=== PATIENT | female | born 1945 | race Caucasian/White ===

== ENCOUNTER 2017-12-25 05:45 | Inpatient (IN) | payer MEDICARE, SELFPAY ==
[2016-12-05 15:47] VITALS: BMI 35.6
[2017-12-25] VITALS (17 sets, daily range): BP systolic 109–155; BP diastolic 42–110; PULSE 68–160; RESP 18–35; TEMP 36.6–39.3; O2SAT 95–100; BMI 38.6; BMI 29.8
--- NOTE | 2017-12-25 06:10 | EKG12_ITS ---
Test Reason : N/V Blood Pressure : / mmHG Vent. Rate : 108 BPM Atrial Rate : 108 BPM P-R Int : 176 ms QRS Dur : 084 ms QT Int : 350 ms P-R-T Axes : 062 008 054 degrees QTc Int : 469 ms Sinus tachycardia with Premature atrial complexes Nonspecific ST abnormality Abnormal ECG Confirmed by KIMBERLY TORRES ([id number]), advertising editor ANDREIA MONTERO ([id number] on 12/29/2017 9:57:34 AM Referred By: ANABELLE Confirmed By:KIMBERLY TORRES
--- NOTE | 2017-12-25 06:10 | RAD_ITS ---
STUDY: X-RAY CHEST REASON FOR EXAM: Female, 72 years old. Fever TECHNIQUE: Single frontal view of the chest. COMPARISON: 10/03/2017 FINDINGS: The lungs are clear and expanded. There is no demonstrated pleural abnormality. Stable cardiac silhouette. Normal mediastinum and lalit. Normal visualized pulmonary arteries. There is atherosclerotic calcification of the aortic arch with tortuosity. Normal visualized thoracic spine. Normal visualized ribs, clavicles, and shoulders. There is no demonstrated abnormality of the visualized soft tissue structures of the upper abdomen. RAD/Chest 1 View (Portable) IMPRESSION: No acute pulmonary findings. Electronically Signed: Jamie Milner MD at 6:50 EST Tel , Service support ,
--- NOTE | 2017-12-25 06:14 | RAD_ITS ---
STUDY: X-RAY - LEFT TIBIA AND FIBULA REASON FOR EXAM: Female, 72 years old. Erythema TECHNIQUE: 2 view(s) of the tibia and fibula were obtained. COMPARISON: None. FINDINGS: Diffuse demineralization. Arterial calcifications. Bicompartmental knee osteoarthritis. No fractures or erosive lesions are seen. No periosteal reaction is seen. RAD/Tibia & Fibula 2 Views IMPRESSION: Knee osteoarthritis. No erosive lesions are seen. Electronically Signed: Jamie Milner MD at 6:47 EST Tel , Service support ,
--- NOTE | 2017-12-25 06:16 | ED.VISSUMM ---
- ER Visit Summary Date of Service: 12/25/17 Chief Complaint: [] Fever, nausea/vomiting/diarrhea History of Present Illness: The patient is a 72 F [] residential facility presenting with nausea and vomiting and diarrhea with very obvious cellulitic left lower extremity. Is a history of diabetes. Adult daughter is at the bedside who is power of institution librarian reports symptoms started yesterday. She reports fever yesterday. When asked about CODE STATUS the daughter reports the patient is DNR CCA. Physical Examination: [] Febrile at 101. Tachycardic. Normotensive. Elderly female in mild distress. Cardiovascular exam is tachycardic with regular rhythm. Lungs are distant breath sounds. Abdomen is obese soft nontender. Left lower extremity demonstrates significant circumferential erythema consistent with cellulitis. There is a left posterior calf decubitus/diabetic wound as a likely source of the cellulitis. Test Results: [] 32,000 white count. BUN and creatinine of 27 and 1.99, respectively. LFTs normal. Lactic acid 2.7. EKG shows normal sinus rhythm rate of 108 without ectopy or ischemia. Fibula 2 views on the left is negative. Chest x-ray 1 view is negative. Blood cultures ?2 and urine cultures are pending. Emergency Department Course and Treatment: [] Patient given intravenous fluid bolus. Patient given rectal Tylenol for fever of 101. Because of the diabetic foot wound/lower extremity cellulitis patient was started on intravenous vancomycin and Zosyn. Case discussed with hospitalist to admit the patient. At no time during the ED visit up until this dictation to the patient have any periods of hypotension. Patient will be admitted to the general medical floor for sepsis secondary to left lower extremity cellulitis. Treatment Plan: [] Admit to medical floor for intravenous antibiotics and further treatment. Disposition: [] Admission, stable. Impression: [] Sepsis Left lower extremity cellulitis History diabetes This note was generated with Motwin dictation software. It may contain incorrect words, spelling, and punctuation that were not noted in review of the chart prior to signing ED Disposition - Plan for ED Patient: Chief Complaint: Nausea/Vomiting/Diarrhea Referrals: Sonja Feliciano [Primary Care Provider] -
[2017-12-25 06:23] LABS: Absolute Lymphocyte Count 2.37 X10^3/ul (0.83-4.51); Absolute Neutrophil Count 29.2 X10^3/uL (2.0-7.7); Basophil# 0.04 X10^3/uL; Basophil% 0.1 % (0-1); Hematocrit 30.8 % (37-47); Hemoglobin 9.3 g/dl (12.0-15.0); Lymphocyte # 2.37 X10^3/ul (4.0); Lymphocyte % 7.4 % (19-41); Mean Corp Hgb Conc 30.2 g/gl (32-36); Mean Corpuscular Hgb 28.9 pg (27.0-32.0); Mean Corpuscular Volume 95.7 fL (81-99); Mean Platelet Vol. 9.6 fl (6.2-12.0); Monocyte# 0.47 X10^3/uL; Monocyte% 1.5 % (0-10); Neutrophil # 29.19 X10^3/uL (2.7-7.7); Neutrophil % 90.7 % (47-70); Platelet Count 265 K/mm3 (150-450); RBC Distribution Width CV 16.6 % (11.6-14.6); RBC Distribution Width SD 57.7 fl (35.1-43.9); Red Blood Count 3.22 M/mm3 (4.2-5.4)
[2017-12-25 06:24] LABS: Differential Indicated SCAN CRITERIA MET; POSITIVE COUNT YES; POSITIVE DIFFERENTIAL YES; POSITIVE MORPHOLOGY YES; White Blood Count 32.2 K/mm3 (4.4-11.0)
--- NOTE | 2017-12-25 06:24 | ED.DCSUM_ITS ---
- ER Visit Summary Date of Service: 12/25/17 Chief Complaint: [] Fever, nausea/vomiting/diarrhea History of Present Illness: The patient is a 72 F [] snf facility presenting with nausea and vomiting and diarrhea with very obvious cellulitic left lower extremity. Is a history of diabetes. Adult daughter is at the bedside who is power of cable assembler reports symptoms started yesterday. She reports fever yesterday. When asked about CODE STATUS the daughter reports the patient is DNR CCA. Physical Examination: [] Febrile at 101. Tachycardic. Normotensive. Elderly female in mild distress. Cardiovascular exam is tachycardic with regular rhythm. Lungs are distant breath sounds. Abdomen is obese soft nontender. Left lower extremity demonstrates significant circumferential erythema consistent with cellulitis. There is a left posterior calf decubitus/diabetic wound as a likely source of the cellulitis. Test Results: [] 32,000 white count. BUN and creatinine of 27 and 1.99, respectively. LFTs normal. Lactic acid 2.7. EKG shows normal sinus rhythm rate of 108 without ectopy or ischemia. Fibula 2 views on the left is negative. Chest x-ray 1 view is negative. Blood cultures ?2 and urine cultures are pending. Emergency Department Course and Treatment: [] Patient given intravenous fluid bolus. Patient given rectal Tylenol for fever of 101. Because of the diabetic foot wound/lower extremity cellulitis patient was started on intravenous vancomycin and Zosyn. Case discussed with hospitalist to admit the patient. At no time during the ED visit up until this dictation to the patient have any periods of hypotension. Patient will be admitted to the general medical floor for sepsis secondary to left lower extremity cellulitis. Treatment Plan: [] Admit to medical floor for intravenous antibiotics and further treatment. Disposition: [] Admission, stable. Impression: [] Sepsis Left lower extremity cellulitis History diabetes This note was generated with DEUS dictation software. It may contain incorrect words, spelling, and punctuation that were not noted in review of the chart prior to signing ED Disposition - Plan for ED Patient: Chief Complaint: Nausea/Vomiting/Diarrhea Referrals: Sonja Feliciano [Primary Care Provider] -
--- NOTE | 2017-12-25 06:24 | ED.RN ---
lab called with critical lab results. wbc 32.2. Dr hunt made aware. no new orders at this time
[2017-12-25 06:26] LABS: Bedside Glucose 139 mg/dL (70-110)
[2017-12-25 06:33] LABS: International Normalized Ratio 1.2; Prothrombin Time (Protime)PT. 15.1 SECONDS (11.7-14.9)
[2017-12-25 06:34] LABS: Partial Thromboplast Time 32.1 Seconds (24.1-36.2)
[2017-12-25 06:39] LABS: Atypical Lymphocyte RARE %; Differential Comment SCANNED
[2017-12-25] MEDS: 0.9% Normal Saline 1,000 ML 999 ML IV (06:39)
[2017-12-25 06:40] LABS: ALB/GLOB Ratio 0.6 RATIO (0.9-2.4); AST(SGOT) 15 U/L (15-37); Alanine Aminotransfer ALT/SGPT 14 U/L (12-78); Albumin, Serum 2.6 g/dL (3.4-5.0); Alkaline Phosphatase 114 U/L (45-117); Anion Gap 11 (5-15); BUN 27 mg/dL (7-18); BUN/Creat Ratio 13.6 RATIO (10-20); Calcium,Total 8.9 mg/dL (8.5-10.1); Chloride 101 mmol/L (98-107); Creatinine, Serum 1.99 mg/dL (0.55-1.02); EST Glomerular Filtration Rate 26 mL/min (>60); Est Glom Filt Rate - Afr Amer 32 mL/min (>60); Estimated Creatinine Clearance 21.45 ml/min; Globulin 4.5 g/dL (2.2-4.2); Glucose 143 mg/dL (70-110); Potassium 4.2 mmol/L (3.5-5.1); Protein, Total 7.1 g/dL (6.4-8.2); Sodium Level 137 mmol/L (136-145)
[2017-12-25 06:44] LABS: Lactic Acid 2.7 mmol/L (0.4-2.0)
[2017-12-25] MEDS: Acetaminophen 650 MG Suppository RECTAL (06:45)
[2017-12-25 07:04] LABS: Mucous, Urine 0 SEEN /hpf (<or=2+)
[2017-12-25 07:09] LABS: Color, Urine Yellow (Yellow); Glucose, Dipstick Normal (Normal); Ketone-Dipstick Negative (Negative); Leukocyte Esterase-Dipstick 500 /ul (Negative); Nitrite-Dipstick Negative (Negative); Occult Blood-Urine 150 /ul (Negative); Protein-Dipstick 100 mg/dl (Negative); Urine Bilirubin Dipstick Negative (Negative); Urine Clarity Sl. Cloudy (Clear); Urine Urobilinogen Normal (Normal)
[2017-12-25 07:14] LABS: Bacteria RARE /hpf (None Seen); Red Blood Cells-Urine 10-25 SEEN /hpf (0-5); Squamous Epithelial Cells - UA 0-5 SEEN /hpf (5-10); White Blood Cells >100 SEEN /hpf (0-5)
[2017-12-25 07:15] LABS: Amorphous Sediment 1+ PHOS
--- NOTE | 2017-12-25 07:22 | NURSING ---
DR EMILY AHN
--- NOTE | 2017-12-25 07:29 | NURSING ---
DR DIAZ IN ER
--- NOTE | 2017-12-25 07:53 | NURSING ---
PCU SEVERE SEPSIS, CELLULITIS EMILY
--- NOTE | 2017-12-25 08:00 | HP.PCM_ITS ---
Problem List (1) Severe sepsis Status: Acute (2) Cellulitis of leg without foot, left Status: Acute (3) CAD (coronary artery disease) Status: Chronic (4) Gout Status: Acute (5) Sepsis affecting skin Status: Acute Comment: cellulitis of L leg (6) UTI (urinary tract infection) Status: Acute (7) CAD (coronary artery disease), [place] coronary artery Status: Chronic Qualifiers: (8) CKD (chronic kidney disease) stage 3, GFR 30-59 ml/min Status: Chronic (9) DM2 (diabetes mellitus, type 2) Status: Chronic Qualifiers: (10) Depression Status: Chronic (11) Dyslipidemia Status: Chronic (12) HTN (hypertension) Status: Chronic Qualifiers: (13) Obesity (BMI 35.0-39.9 without comorbidity) Status: Chronic (14) Paroxysmal atrial fibrillation Status: Chronic (15) S/P angioplasty with stent Status: Chronic Comment: EDGARDO to mid LAD 12/05/2016 (16) 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 Is completed with fevers and chills. Patient is very listless right now and unable to give an adequate history. As patient presented to the emergency room and was found to be in severe sepsis, with fever of 38.4 Celsius, heart rate of 110 and respiratory rate of 35. Patient's lactic acid came back at 2.7. Patient received IV vancomycin and Zosyn in the emergency room. Shortly, patient received IV fluids for the severe sepsis. [] Past Medical History Past Medical History (Chronic Problems): Chronic Problems (Last Updated 11/09/17 @ 12:57 by JESSCIA WilkinsonC) CAD (coronary artery disease) (Chronic) Paroxysmal atrial fibrillation (Chronic) S/P angioplasty with stent (Chronic) EDGARDO to mid LAD 12/05/2016 CAD (coronary artery disease), [place] coronary artery (Chronic) DM2 (diabetes mellitus, type 2) (Chronic) Dyslipidemia (Chronic) Depression (Chronic) HTN (hypertension) (Chronic) CKD (chronic kidney disease) stage 3, GFR 30-59 ml/min (Chronic) Obesity (BMI 35.0-39.9 without comorbidity) (Chronic) Varicose veins of left lower extremity with ulcer of calf (Chronic) 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) Allergies cefepime HCl [From Maxipime] Allergy (Verified 12/25/17 05:51) Itching cephalexin monohydrate [From Keflex] Allergy (Verified 12/25/17 05:51) Hives clopidogrel [From Plavix] Allergy (Unverified 12/25/17 05:51) Itching and hives all over hydromorphone HCl [From Dilaudid] Adverse Reaction (Verified 12/25/17 05:51) Itching Home Medications: Ambulatory Orders Medication Instructions Recorded Ergocalciferol [Vitamin D] 50,000 unit PO WESA 12/19/14 PredniSONE 5 mg PO DAILY 12/19/14 Allopurinol [Zyloprim] 100 mg PO DAILYCM 01/23/15 Metoprolol Tartrate [Lopressor 50 mg PO BID 12/03/16 (beta reid)] Simvastatin [Zocor] 40 mg PO QHS 12/03/16 Aspirin E.C. [Ecotrin] 81 mg PO DAILY@0800 #30 tablet 12/05/16 Insulin Glargine [Lantus SoloStar 10 units SC QHS 04/01/17 Pen] Ticagrelor [Brilinta] 90 mg PO BID 04/01/17 Hydroxychloroquine [Plaquenil] 200 mg PO DAILYCM 12/25/17 Metformin HCl 500 mg PO BID 12/25/17 TraMADol [Ultram (G)] 50 mg PO Q8H PRN PRN 12/25/17 Surgical History: hysterectomy, rotator cuff repair, - - GFF. I/D right toe, skin grafts BLE Smoking Status: Never smoker - *Family History Paternal Family History: Family History (Last Updated 11/09/17 @ 12:05 by CRISTIAN Wilkinson) Father Hypertension Brother CAD (coronary artery disease) History Items: Diabetes Maternal Family History: Family History (Last Updated 11/09/17 @ 12:05 by CRISTIAN Wilkinson) Father Hypertension Brother CAD (coronary artery disease) History Items: Diabetes, Hypertension Review of Systems Constitutional: Reports: Chills, Fever Eyes: Denies: Blurred vision, Double vision HEENT: Denies: Head Aches, Sinus Congestion, Sinus Drainage Cardiovascular: Denies: Chest Pain, Palpitations Respiratory: Denies: Cough, Shortness of breath at rest, Sputum production Gastrointestinal: Denies: Abdominal Pain, Nausea, Vomiting Genitourinary: Denies: Dysuria Musculoskeletal: Reports: Leg Pain - Left, - - Chronic knee pain Skin: Reports: Wounds - Chronic lower extremity wounds associated with her, - - Erythema of the left lower extremity. Neurological: Reports: - - Generalized weakness due to arthritis.. Denies: Blurred vision, Double vision Psychiatric: Denies: Anxiety, Depression, Homicidal Ideations, Suicidal Ideations Hematologic/ Lymphatic: Reports: Hx of blood clot. Denies: Easy Bruising, Easy Bleeding VTE Information - Inpt Only VTE Present on Admission: No VTE Pharm Prophylaxis ordered?: Yes Patient Problems: Active and Suspected Problems (Last Updated 11/09/17 @ 12:57 by Rayray Bernal, WEB INTERFACE DEVELOPER- C) Severe sepsis (Acute) Cellulitis of leg without foot, left (Acute) - Physical Exam General: Alert, - - Comfortable. Afebrile. HEENT: Atraumatic, Normocephalic Neck: No Nodes, Thyroid Normal Size and Texture Lungs: Clear to auscultation, No rhonchi, No wheeze, Diminished Cardiovascular: Regular rate, Regular Rhythm, Normal S1, Normal S2 Abdomen: Bowel Sounds Present, Soft, Non Tender, Non-Distended, No Hepato- splenomegaly, Obese Extremities: Edema, Tenderness Skin: - - Circumferential erythema of the left lower extremity below the foot and extends to the knee. On the posterior aspect of her left leg patient does have a superficial wound. No purulence was expressed. Patient also does have some superficial wounds on her right lower extremity but there is no erythema there. Musculoskeletal: Arthritic Changes, Muscle Wasting Neurological: Neuro grossly intact, Sensory exam intact to light touch and pain Psych/Mental Status: Appropriate, Anxious Vital Signs Temp Pulse Resp BP Pulse Ox 38.4 C H 110 H 35 H 147/69 H 98 12/25/17 07:33 12/25/17 07:33 12/25/17 07:33 12/25/17 07:33 12/25/17 07:33 Oxygen Flow Rate 2 Oxygen Delivery Method Nasal Cannula Weight: 98.9 kg Body Mass Index (BMI) 38.6 Finger Stick Blood Glucose 139 Laboratory Tests Past 24 Hrs 12/25/17 12/25/17 12/25/17 06:10 06:10 06:10 WBC 32.2 H* RBC 3.22 L Hgb 9.3 L Hct 30.8 L MCV 95.7 MCH 28.9 MCHC 30.2 L RDW 16.6 H RDW Differential 57.7 H Plt Count 265 MPV 9.6 Immature Gran % (Auto) 0.300 Neut % (Auto) 90.7 H Lymph % (Auto) 7.4 L Swain % (Auto) 1.5 Eos % (Auto) 0.0 Baso % (Auto) 0.1 Absolute Neuts (auto) 29.2 H Absolute Lymphs (auto) 2.37 Total Counted Not Reportable Differential Comment SCANNED Diff Path Review May foll Atypical Lymphocytes RARE PT 15.1 H INR 1.2 APTT 32.1 Sodium 137 Potassium 4.2 Chloride 101 Carbon Dioxide 25.0 Anion Gap 11 BUN 27 H Creatinine 1.99 H Estim Creat Clear Calc 21.45 Est GFR (MDRD) Af Amer 32 L Est GFR (MDRD) Non-Af 26 L BUN/Creatinine Ratio 13.6 Glucose 143 H Lactic Acid Calcium 8.9 Total Bilirubin 0.80 AST 15 ALT 14 Alkaline Phosphatase 114 Total Protein 7.1 Albumin 2.6 L Globulin 4.5 H Albumin/Globulin Ratio 0.6 L Urine Color Urine Clarity Urine pH Ur Specific [place] Urine Protein Urine Glucose (UA) Urine Ketones Urine Occult Blood Urine Nitrite Urine Bilirubin Urine Urobilinogen Ur Leukocyte Esterase Urine RBC Urine WBC Ur Squamous Epith Cells Amorphous Sediment Urine Bacteria Urine Mucus POC Glucose 12/25/17 12/25/17 12/25/17 06:10 06:12 06:55 WBC RBC Hgb Hct MCV MCH MCHC RDW RDW Differential Plt Count MPV Immature Gran % (Auto) Neut % (Auto) Lymph % (Auto) Swain % (Auto) Eos % (Auto) Baso % (Auto) Absolute Neuts (auto) Absolute Lymphs (auto) Total Counted Differential Comment Diff Path Review Atypical Lymphocytes PT INR APTT Sodium Potassium Chloride Carbon Dioxide Anion Gap BUN Creatinine Estim Creat Clear Calc Est GFR (MDRD) Af Amer Est GFR (MDRD) Non-Af BUN/Creatinine Ratio Glucose Lactic Acid 2.7 H Calcium Total Bilirubin AST ALT Alkaline Phosphatase Total Protein Albumin Globulin Albumin/Globulin Ratio Urine Color Yellow Urine Clarity Sl. Cloudy Urine pH 8.0 Ur Specific [place] 1.010 Urine Protein 100 H Urine Glucose (UA) Normal Urine Ketones Negative Urine Occult Blood 150 H Urine Nitrite Negative Urine Bilirubin Negative Urine Urobilinogen Normal Ur Leukocyte Esterase 500 H Urine RBC 10-25 SEEN Urine WBC >100 SEEN Ur Squamous Epith Cells 0-5 SEEN Amorphous Sediment 1+ PHOS Urine Bacteria RARE Urine Mucus 0 SEEN POC Glucose 139 H POC Glucose 12/25/17 06:12 POC Glucose 139 H Assessment/Plan Active and Suspected Problems (Last Updated 11/09/17 @ 12:57 by Rayray Bernal, WEB INTERFACE DEVELOPER- C) Severe sepsis (Acute) Cellulitis of leg without foot, left (Acute) 2-year-old white female presents with a few day history of left upper extremity cellulitis and fever and chills. Patient admitted with severe sepsis and left lower extremity cellulitis. Patient has been started on vancomycin and Zosyn. Patient will receive IV fluids for her severe sepsis and follow her lactic acid until normalization. 1. Severe sepsis Present on admission Secondary to the left lower extremity cellulitis. Blood cultures drawn Patient will have repeat IV fluids as well as reevaluation of her lactic acid 2. Left lower extremity cellulitis We will continue with broad-spectrum antibiotics. Follow up on cultures. I presume this is more of a gram-positive organism but patient will be on Zosyn for now. 3. Chronic kidney disease stage III Appears to be stable at this time. Patient will be on IV fluids. 4. Diabetes mellitus type 2 Patient also on metformin at home. That will be held given lactic acidosis. Patient will just have prandial blood sugar checks as well as a sliding scale insulin if needed. 5. DVT prophylaxis with subcu heparin 6. CODE STATUS: Discussed with the patient's daughter and the patient. Patient is very wiped out at this time and really not able to be fully engaged in conversation but daughter defers to living well but stated to the daughter that is probably not address the living will but at this point time patient will be full CODE STATUS. Code Visit Inpatient E&M: 95022 Init Hosp L3
[2017-12-25 09:56] LABS: Bedside Glucose 105 mg/dL (70-110)
[2017-12-25 10:15] LABS: Reflex Lactate? Y
--- NOTE | 2017-12-25 11:21 | NURSING ---
wound photo: left posterior lower leg
[2017-12-25] MEDS: Glucerna Shake 120 ML LIQUID PO (11:29)
[2017-12-25] MEDS: Allopurinol 100 MG Tablet PO (11:30)
[2017-12-25] MEDS: Metoprolol Tartrate 50 MG Tablet PO ×2 (11:30→21:10)
[2017-12-25] MEDS: Aspirin E.C. 81 MG Tablet PO (11:30)
[2017-12-25 11:48] LABS: Lactic Acid 1.3 mmol/L (0.4-2.0)
[2017-12-25] MEDS: 0.9% Normal Saline 1,000 ML 150 ML IV (12:36)
[2017-12-25 12:41] LABS: Bedside Glucose 112 mg/dL (70-110)
[2017-12-25 12:44] LABS: M R Staph aureus DNA By PCR Negative (Negative); Probe Check PASS; Specimen Processing Control PASS; Staph aureus DNA By PCR POSITIVE (Negative)
[2017-12-25 13:55] LABS: Pathologist Review Reviewed
[2017-12-25] MEDS: Piperacil/Tazobactam 3.375 GM/50 ML ML IV ×2 (14:59→21:22)
[2017-12-25] MEDS: Acetaminophen 325 MG Tablet 650 MG PO (15:36)
[2017-12-25 17:31] LABS: Bedside Glucose 137 mg/dL (70-110)
[2017-12-25] MEDS: Atorvastatin Calcium 20 MG Tablet PO (21:10)
[2017-12-25 23:31] LABS: Bedside Glucose 132 mg/dL (70-110)
[2017-12-26] VITALS (12 sets, daily range): BP systolic 117–127; BP diastolic 51–67; PULSE 61–79; RESP 16–20; TEMP 36.7–37.3; O2SAT 95–100
[2017-12-26] MEDS: Piperacil/Tazobactam 3.375 GM/50 ML ML IV (05:49)
[2017-12-26 06:29] LABS: Absolute Lymphocyte Count 1.55 X10^3/ul (0.83-4.51); Absolute Neutrophil Count 19.6 X10^3/uL (2.0-7.7); Basophil# 0.01 X10^3/uL; Eosinophil# 0.02 X10^3/uL; Eosinophils% 0.1 % (0-5); Hematocrit 25.5 % (37-47); Hemoglobin 7.8 g/dl (12.0-15.0); Lymphocyte # 1.55 X10^3/ul (4.0); Lymphocyte % 7.2 % (19-41); Mean Corp Hgb Conc 30.6 g/gl (32-36); Mean Corpuscular Volume 94.8 fL (81-99); Monocyte# 0.38 X10^3/uL; Monocyte% 1.8 % (0-10); Neutrophil # 19.56 X10^3/uL (2.7-7.7); Neutrophil % 90.7 % (47-70); Platelet Count 229 K/mm3 (150-450); RBC Distribution Width CV 16.7 % (11.6-14.6); RBC Distribution Width SD 57.8 fl (35.1-43.9); Red Blood Count 2.69 M/mm3 (4.2-5.4); White Blood Count 21.6 K/mm3 (4.4-11.0)
[2017-12-26 06:46] LABS: Differential Indicated SCAN CRITERIA MET; POSITIVE COUNT NO; POSITIVE DIFFERENTIAL NO; POSITIVE MORPHOLOGY YES
[2017-12-26 06:52] LABS: Anion Gap 9 (5-15); BUN 29 mg/dL (7-18); BUN/Creat Ratio 17.4 RATIO (10-20); Calcium,Total 8.3 mg/dL (8.5-10.1); Chloride 106 mmol/L (98-107); Creatinine, Serum 1.67 mg/dL (0.55-1.02); EST Glomerular Filtration Rate 32 mL/min (>60); Est Glom Filt Rate - Afr Amer 39 mL/min (>60); Estimated Creatinine Clearance 33.41 ml/min; Glucose 65 mg/dL (70-110); Potassium 3.8 mmol/L (3.5-5.1); Sodium Level 137 mmol/L (136-145)
[2017-12-26 07:01] LABS: Bedside Glucose 65 mg/dL (70-110)
[2017-12-26 07:11] LABS: Bedside Glucose 75 mg/dL (70-110)
[2017-12-26 08:37] LABS: Differential Comment SCANNED
--- NOTE | 2017-12-26 08:58 | PCM.PN.HOSP ---
Patient Problems: Active and Suspected Problems (Last Updated 11/09/17 @ 12:57 by Rayray Bernal, TAWER-C) Severe sepsis (Acute) Cellulitis of leg without foot, left (Acute) Subjective: Feeling better. No shortness of breath. Leg is feeling better. Vitals/I&O's: Vital Signs Temp Pulse Resp BP Pulse Ox 36.9 C 74 20 H 127/63 H 100 12/26/17 04:17 12/26/17 07:27 12/26/17 04:17 12/26/17 04:17 12/26/17 08:00 Oxygen Flow Rate 2 Oxygen Delivery Method Nasal Cannula Weight: 94.3 kg Body Mass Index (BMI) 29.8 Intake and Output for Last 24 Hours 12/24/17 12/25/17 12/26/17 23:59 23:59 23:59 Intake Total 2406 / 2406 846 / 846 Balance 2406 / 2406 846 / 846 General: Alert, Cooperative, No apparent distress, - - No respiratory distress. No conversational dyspnea. Appears very comfortable and lucid. HEENT: Atraumatic, Normocephalic Neck: No Nodes, Thyroid Normal Size and Texture Lungs: Clear to auscultation, Normal air movement, No rhonchi, No wheeze Cardiovascular: Regular rate, Regular Rhythm, Normal S1, Normal S2, No murmurs Abdomen: Bowel Sounds Present, Soft, Non Tender, Non-Distended, No Hepato-splenomegaly Extremities: No Calf Tenderness, Edema Skin: - - Decreased erythema left lower extremity. Left leg was recently wrapped I did not remove it all the way but from what is able to see down to the mid navas appeared much improved from yesterday. Psych/Mental Status: Normal Affect, Appropriate Microbiology Past 72 Hours 12/25/17 10:45 Wound - Leg, Left Gram Stain - Final Laboratory Results 12/25/17 09:43: POC Glucose 105 12/25/17 10:45: Lactic Acid 1.3 12/25/17 10:45: S.aureus Protein A PCR POSITIVE H, MRSA (PCR) Negative 12/25/17 12:36: POC Glucose 112 H 12/25/17 17:00: POC Glucose 137 H 12/25/17 21:13: POC Glucose 132 H 12/26/17 05:55: WBC 21.6 H, RBC 2.69 L, Hgb 7.8 L, Hct 25.5 L, MCV 94.8, MCH 29.0, MCHC 30.6 L, RDW 16.7 H, RDW Differential 57.8 H, Plt Count 229, MPV 10.0, Immature Gran % (Auto) 0.200, Neut % (Auto) 90.7 H, Lymph % (Auto) 7.2 L, [place] % (Auto) 1.8, Eos % (Auto) 0.1, Baso % (Auto) 0.0, Absolute Neuts (auto) 19.6 H, Absolute Lymphs (auto) 1.55, Total Counted Not Reportable, Differential Comment SCANNED 12/26/17 05:55: Sodium 137, Potassium 3.8, Chloride 106, Carbon Dioxide 22.0, Anion Gap 9, BUN 29 H, Creatinine 1.67 H, Estim Creat Clear Calc 33.41, Est GFR (MDRD) Af Amer 39 L, Est GFR (MDRD) Non-Af 32 L, BUN/Creatinine Ratio 17.4, Glucose 65 L, Calcium 8.3 L 12/26/17 06:49: POC Glucose 65 L 12/26/17 07:04: POC Glucose 75 Current Medications Acetaminophen (Tylenol) 650 mg PO Q6H PRN PRN PRN Reason: Mild Pain (scale 0-3)/T>100.7 Last Admin: 12/25/17 15:36 Dose: 650 mg Allopurinol (Zyloprim) 100 mg PO DAILYCM [facility] Last Admin: 12/25/17 11:30 Dose: 100 mg Aspirin (Ecotrin) 81 mg PO DAILY@0800 [facility] Last Admin: 12/25/17 11:30 Dose: 81 mg Atorvastatin Calcium (Lipitor) 20 mg PO QHS [facility] Last Admin: 12/25/17 21:10 Dose: 20 mg Dextrose (D50w Syringe) 0 gm IV X1 PRN; Protocol PRN Reason: Hypoglycemia Ergocalciferol (Vitamin D) 50,000 unit PO WESA [facility] Glucagon () 1 mg IM .X1 PRN PRN Reason: Hypoglycemia Heparin Sodium (Porcine) (Heparin Na) 5,000 unit SC BID [facility] Last Admin: 12/25/17 21:11 Dose: 5,000 u Piperacillin Sod/Tazobactam Sod (Zosyn) 3.375 gm in 50 mls @ 12.5 mls/hr IV Q8 [facility] Last Admin: 12/26/17 05:49 Dose: 12.5 mls/hr Vancomycin HCl (Vancomycin) 1,000 mg in 200 mls @ 200 mls/hr IV Q24H [facility] Insulin Aspart (Novolog Flexpen (Bkc)) 0 units SC TIDAC [facility] PRN Reason: Protocol Last Admin: 12/25/17 17:04 Dose: Not Given Insulin Detemir (Levemir (Bkc)) 10 units SC HS [facility] Last Admin: 12/25/17 21:11 Dose: 10 u Magnesium Hydroxide (Milk Of Magnesia) 30 ml PO DAILY PRN PRN Reason: Constipation Metoprolol Tartrate (Lopressor (Beta Felicia)) 50 mg PO BID [facility] Last Admin: 12/25/17 21:10 Dose: 50 mg Nutritional Formula (Lactose Free) (Glucerna Shake) 120 ml PO 4X/DAY [facility] Last Admin: 12/25/17 21:01 Dose: Not Given Ondansetron HCl (Zofran) 4 mg IV Q8H PRN PRN PRN Reason: Nausea Prednisone (Prednisone) 5 mg PO DAILYCM [facility] Last Admin: 12/25/17 11:30 Dose: 5 mg Tramadol HCl (Ultram (G)) 50 mg PO Q8H PRN PRN PRN Reason: PAIN Last Admin: 12/25/17 21:14 Dose: 50 mg Assessment/Plan Active and Suspected Problems (Last Updated 11/09/17 @ 12:57 by Rayray Bernal, TAWER-C) Severe sepsis (Acute) Cellulitis of leg without foot, left (Acute) 72-year-old white female presents with a few day history of left upper extremity cellulitis and fever and chills. Patient admitted with severe sepsis and left lower extremity cellulitis. Patient has been started on vancomycin and Zosyn. Patient will receive IV fluids for her severe sepsis and follow her lactic acid until normalization. 1. Severe sepsis Present on admission Secondary to the left lower extremity cellulitis. Blood cultures drawn Resolved. 2. Left lower extremity cellulitis We will continue with broad-spectrum antibiotics. Follow up on cultures. I presume this is more of a gram-positive organism but patient will be on Zosyn for now. Swab positive for staph aureus but not MRSA. Wound and blood cultures currently pending. Discontinue Zosyn and continue with vancomycin for now. 3. Chronic kidney disease stage III Appears to be stable at this time. Patient will be on IV fluids. 4. Diabetes mellitus type 2 Patient also on metformin at home. That will be held given lactic acidosis. Patient will just have prandial blood sugar checks as well as a sliding scale insulin if needed. Fair control at this time. Continue to monitor. 5. DVT prophylaxis with subcu heparin Code Visit Inpatient E&M: 75382 Subs Hosp L2
--- NOTE | 2017-12-26 09:01 | PN_ITS ---
Patient Problems: Active and Suspected Problems (Last Updated 11/09/17 @ 12:57 by Rayray Bernal, FIELD OPERATIONS SUPERVISOR- C) Severe sepsis (Acute) Cellulitis of leg without foot, left (Acute) Subjective: Feeling better. No shortness of breath. Leg is feeling better. Vitals/I&O's: Vital Signs Temp Pulse Resp BP Pulse Ox 36.9 C 74 20 H 127/63 H 100 12/26/17 04:17 12/26/17 07:27 12/26/17 04:17 12/26/17 04:17 12/26/17 08:00 Oxygen Flow Rate 2 Oxygen Delivery Method Nasal Cannula Weight: 94.3 kg Body Mass Index (BMI) 29.8 Intake and Output for Last 24 Hours 12/24/17 12/25/17 12/26/17 23:59 23:59 23:59 Intake Total 2406 / 2406 846 / 846 Balance 2406 / 2406 846 / 846 General: Alert, Cooperative, No apparent distress, - - No respiratory distress. No conversational dyspnea. Appears very comfortable and lucid. HEENT: Atraumatic, Normocephalic Neck: No Nodes, Thyroid Normal Size and Texture Lungs: Clear to auscultation, Normal air movement, No rhonchi, No wheeze Cardiovascular: Regular rate, Regular Rhythm, Normal S1, Normal S2, No murmurs Abdomen: Bowel Sounds Present, Soft, Non Tender, Non-Distended, No Hepato- splenomegaly Extremities: No Calf Tenderness, Edema Skin: - - Decreased erythema left lower extremity. Left leg was recently wrapped I did not remove it all the way but from what is able to see down to the mid navas appeared much improved from yesterday. Psych/Mental Status: Normal Affect, Appropriate Microbiology Past 72 Hours 12/25/17 10:45 Wound - Leg, Left Gram Stain - Final Laboratory Results 12/25/17 09:43: POC Glucose 105 12/25/17 10:45: Lactic Acid 1.3 12/25/17 10:45: S.aureus Protein A PCR POSITIVE H, MRSA (PCR) Negative 12/25/17 12:36: POC Glucose 112 H 12/25/17 17:00: POC Glucose 137 H 12/25/17 21:13: POC Glucose 132 H 12/26/17 05:55: WBC 21.6 H, RBC 2.69 L, Hgb 7.8 L, Hct 25.5 L, MCV 94.8, MCH 29.0, MCHC 30.6 L, RDW 16.7 H, RDW Differential 57.8 H, Plt Count 229, MPV 10.0 , Immature Gran % (Auto) 0.200, Neut % (Auto) 90.7 H, Lymph % (Auto) 7.2 L, [place] % (Auto) 1.8, Eos % (Auto) 0.1, Baso % (Auto) 0.0, Absolute Neuts (auto) 19.6 H, Absolute Lymphs (auto) 1.55, Total Counted Not Reportable, Differential Comment SCANNED 12/26/17 05:55: Sodium 137, Potassium 3.8, Chloride 106, Carbon Dioxide 22.0, Anion Gap 9, BUN 29 H, Creatinine 1.67 H, Estim Creat Clear Calc 33.41, Est GFR (MDRD) Af Amer 39 L, Est GFR (MDRD) Non-Af 32 L, BUN/Creatinine Ratio 17.4, Glucose 65 L, Calcium 8.3 L 12/26/17 06:49: POC Glucose 65 L 12/26/17 07:04: POC Glucose 75 Current Medications Acetaminophen (Tylenol) 650 mg PO Q6H PRN PRN PRN Reason: Mild Pain (scale 0-3)/T>100.7 Last Admin: 12/25/17 15:36 Dose: 650 mg Allopurinol (Zyloprim) 100 mg PO DAILYCM [facility] Last Admin: 12/25/17 11:30 Dose: 100 mg Aspirin (Ecotrin) 81 mg PO DAILY@0800 [facility] Last Admin: 12/25/17 11:30 Dose: 81 mg Atorvastatin Calcium (Lipitor) 20 mg PO QHS [facility] Last Admin: 12/25/17 21:10 Dose: 20 mg Dextrose (D50w Syringe) 0 gm IV X1 PRN; Protocol PRN Reason: Hypoglycemia Ergocalciferol (Vitamin D) 50,000 unit PO WESA [facility] Glucagon () 1 mg IM .X1 PRN PRN Reason: Hypoglycemia Heparin Sodium (Porcine) (Heparin Na) 5,000 unit SC BID [facility] Last Admin: 12/25/17 21:11 Dose: 5,000 u Piperacillin Sod/Tazobactam Sod (Zosyn) 3.375 gm in 50 mls @ 12.5 mls/hr IV Q8 [facility] Last Admin: 12/26/17 05:49 Dose: 12.5 mls/hr Vancomycin HCl (Vancomycin) 1,000 mg in 200 mls @ 200 mls/hr IV Q24H [facility] Insulin Aspart (Novolog Flexpen (Bkc)) 0 units SC TIDAC [facility] PRN Reason: Protocol Last Admin: 12/25/17 17:04 Dose: Not Given Insulin Detemir (Levemir (Bkc)) 10 units SC HS [facility] Last Admin: 12/25/17 21:11 Dose: 10 u Magnesium Hydroxide (Milk Of Magnesia) 30 ml PO DAILY PRN PRN Reason: Constipation Metoprolol Tartrate (Lopressor (Beta Felicia)) 50 mg PO BID [facility] Last Admin: 12/25/17 21:10 Dose: 50 mg Nutritional Formula (Lactose Free) (Glucerna Shake) 120 ml PO 4X/DAY [facility] Last Admin: 12/25/17 21:01 Dose: Not Given Ondansetron HCl (Zofran) 4 mg IV Q8H PRN PRN PRN Reason: Nausea Prednisone (Prednisone) 5 mg PO DAILYCM [facility] Last Admin: 12/25/17 11:30 Dose: 5 mg Tramadol HCl (Ultram (G)) 50 mg PO Q8H PRN PRN PRN Reason: PAIN Last Admin: 12/25/17 21:14 Dose: 50 mg Assessment/Plan Active and Suspected Problems (Last Updated 11/09/17 @ 12:57 by Rayray Bernal, FIELD OPERATIONS SUPERVISOR- C) Severe sepsis (Acute) Cellulitis of leg without foot, left (Acute) 72-year-old white female presents with a few day history of left upper extremity cellulitis and fever and chills. Patient admitted with severe sepsis and left lower extremity cellulitis. Patient has been started on vancomycin and Zosyn. Patient will receive IV fluids for her severe sepsis and follow her lactic acid until normalization. 1. Severe sepsis Present on admission Secondary to the left lower extremity cellulitis. Blood cultures drawn Resolved. 2. Left lower extremity cellulitis We will continue with broad-spectrum antibiotics. Follow up on cultures. I presume this is more of a gram-positive organism but patient will be on Zosyn for now. Swab positive for staph aureus but not MRSA. Wound and blood cultures currently pending. Discontinue Zosyn and continue with vancomycin for now. 3. Chronic kidney disease stage III Appears to be stable at this time. Patient will be on IV fluids. 4. Diabetes mellitus type 2 Patient also on metformin at home. That will be held given lactic acidosis. Patient will just have prandial blood sugar checks as well as a sliding scale insulin if needed. Fair control at this time. Continue to monitor. 5. DVT prophylaxis with subcu heparin Code Visit Inpatient E&M: 12408 Subs Hosp L2
[2017-12-26] MEDS: Aspirin E.C. 81 MG Tablet PO (10:03)
[2017-12-26] MEDS: Allopurinol 100 MG Tablet PO (10:03)
[2017-12-26] MEDS: Metoprolol Tartrate 50 MG Tablet PO ×2 (10:05→21:49)
[2017-12-26 12:46] LABS: Bedside Glucose 107 mg/dL (70-110)
[2017-12-26 16:16] LABS: Bedside Glucose 163 mg/dL (70-110)
--- NOTE | 2017-12-26 16:51 | CASEMGMT ---
Face to Face with patient for initial transition planning/care coordination assessment. RN MAIDA introduced self and role at [facility], pt voices understanding and consents to assessment at this time. Pt sitting up in chair in no distress at this time. Pt A/O x4 at this time and answers all questions appropriately at this time. Care providers, pharmacy, and demographics verified. See attached link. Pt voices no further concerns/needs at this time. Advised pt to ask for CM if any further questions/concerns/needs arise, voices understanding. CM to follow for any further discharge planning/needs. PLAN: [place] [facility]
[2017-12-26] MEDS: Atorvastatin Calcium 20 MG Tablet PO (21:49)
[2017-12-26 22:01] LABS: Bedside Glucose 136 mg/dL (70-110)
[2017-12-27 02:38] VITALS: BP 131/82; PULSE 95; RESP 16; TEMP 36.8; O2SAT 98
[2017-12-27 06:03] LABS: Absolute Lymphocyte Count 2.09 X10^3/ul (0.83-4.51); Absolute Neutrophil Count 8.8 X10^3/uL (2.0-7.7); Basophil# 0.03 X10^3/uL; Basophil% 0.3 % (0-1); Eosinophil# 0.38 X10^3/uL; Eosinophils% 3.2 % (0-5); Hematocrit 26.1 % (37-47); Hemoglobin 7.9 g/dl (12.0-15.0); Lymphocyte # 2.09 X10^3/ul (4.0); Lymphocyte % 17.6 % (19-41); Mean Corp Hgb Conc 30.3 g/gl (32-36); Mean Corpuscular Hgb 28.9 pg (27.0-32.0); Mean Corpuscular Volume 95.6 fL (81-99); Mean Platelet Vol. 10.7 fl (6.2-12.0); Monocyte# 0.54 X10^3/uL; Monocyte% 4.6 % (0-10); Neutrophil # 8.78 X10^3/uL (2.7-7.7); Platelet Count 221 K/mm3 (150-450); RBC Distribution Width CV 16.6 % (11.6-14.6); Red Blood Count 2.73 M/mm3 (4.2-5.4); White Blood Count 11.9 K/mm3 (4.4-11.0)
[2017-12-27 06:06] LABS: POSITIVE COUNT NO; POSITIVE DIFFERENTIAL NO; POSITIVE MORPHOLOGY NO
[2017-12-27 06:22] LABS: Anion Gap 9 (5-15); BUN 31 mg/dL (7-18); BUN/Creat Ratio 16.5 RATIO (10-20); Calcium,Total 8.6 mg/dL (8.5-10.1); Chloride 108 mmol/L (98-107); Creatinine, Serum 1.88 mg/dL (0.55-1.02); EST Glomerular Filtration Rate 28 mL/min (>60); Est Glom Filt Rate - Afr Amer 34 mL/min (>60); Estimated Creatinine Clearance 29.68 ml/min; Glucose 82 mg/dL (70-110); Sodium Level 139 mmol/L (136-145)
[2017-12-27 06:51] LABS: Bedside Glucose 76 mg/dL (70-110)
[2017-12-27 07:14] VITALS: O2SAT 96
--- NOTE | 2017-12-27 08:19 | PCM.PN.HOSP ---
Patient Problems: Active and Suspected Problems (Last Updated 11/09/17 @ 12:57 by Rayray Bernal, TESTER REGULATOR-C) Severe sepsis (Acute) Cellulitis of leg without foot, left (Acute) Subjective: His leg is doing better and patient otherwise feels well. Vitals/I&O's: Vital Signs Temp Pulse Resp BP Pulse Ox 36.8 C 95 16 131/82 H 96 12/27/17 02:38 12/27/17 02:38 12/27/17 02:38 12/27/17 02:38 12/27/17 07:14 Oxygen Flow Rate 2 Oxygen Delivery Method Room Air Weight: 94.3 kg Body Mass Index (BMI) 29.8 Intake and Output for Last 24 Hours 12/25/17 12/26/17 12/27/17 23:59 23:59 23:59 Intake Total 2406 / 2406 1317 / 1317 Balance 2406 / 2406 1317 / 1317 General: Alert, Cooperative, No apparent distress HEENT: Atraumatic, Normocephalic Extremities: Edema Skin: - - Resolving erythema of the left lower extremity. Patient still does have the superficial ulcers on the posterior aspect of her calf. No purulence no fluctuance no induration. Microbiology Past 72 Hours 12/26/17 12:40 Stool C. difficile DNA Amplification - Final 12/25/17 10:45 Wound - Leg, Left Gram Stain - Final 12/25/17 10:45 Wound - Leg, Left Wound Culture - Preliminary Staphylococcus aureus Laboratory Results 12/26/17 05:55: Total Counted Not Reportable, Differential Comment SCANNED 12/26/17 12:25: POC Glucose 107 12/26/17 16:13: POC Glucose 163 H 12/26/17 21:51: POC Glucose 136 H 12/27/17 05:42: WBC 11.9 H, RBC 2.73 L, Hgb 7.9 L, Hct 26.1 L, MCV 95.6, MCH 28.9, MCHC 30.3 L, RDW 16.6 H, RDW Differential 55.0 H, Plt Count 221, MPV 10.7, Immature Gran % (Auto) 0.300, Neut % (Auto) 74.0 H, Lymph % (Auto) 17.6 L, [place] % (Auto) 4.6, Eos % (Auto) 3.2, Baso % (Auto) 0.3, Absolute Neuts (auto) 8.8 H, Absolute Lymphs (auto) 2.09, Total Counted Not Reportable 12/27/17 05:42: Sodium 139, Potassium 4.0, Chloride 108 H, Carbon Dioxide 22.0, Anion Gap 9, BUN 31 H, Creatinine 1.88 H, Estim Creat Clear Calc 29.68, Est GFR (MDRD) Af Amer 34 L, Est GFR (MDRD) Non-Af 28 L, BUN/Creatinine Ratio 16.5, Glucose 82, Calcium 8.6 12/27/17 06:45: POC Glucose 76 Current Medications Acetaminophen (Tylenol) 650 mg PO Q6H PRN PRN PRN Reason: Mild Pain (scale 0-3)/T>100.7 Last Admin: 12/25/17 15:36 Dose: 650 mg Allopurinol (Zyloprim) 100 mg PO DAILYCM [facility] Last Admin: 12/26/17 10:03 Dose: 100 mg Aspirin (Ecotrin) 81 mg PO DAILY@0800 [facility] Last Admin: 12/26/17 10:03 Dose: 81 mg Atorvastatin Calcium (Lipitor) 20 mg PO QHS [facility] Last Admin: 12/26/17 21:49 Dose: 20 mg Dextrose (D50w Syringe) 0 gm IV X1 PRN; Protocol PRN Reason: Hypoglycemia Ergocalciferol (Vitamin D) 50,000 unit PO WESA [facility] Last Admin: 12/26/17 10:03 Dose: 50,000 unit Glucagon () 1 mg IM .X1 PRN PRN Reason: Hypoglycemia Heparin Sodium (Porcine) (Heparin Na) 5,000 unit SC BID [facility] Last Admin: 12/26/17 21:49 Dose: 5,000 u Vancomycin HCl (Vancomycin) 1,000 mg in 200 mls @ 200 mls/hr IV Q24H [facility] Last Admin: 12/26/17 10:03 Dose: 200 mls/hr Insulin Aspart (Novolog Flexpen (Bkc)) 0 units SC TIDAC [facility] PRN Reason: Protocol Last Admin: 12/27/17 06:55 Dose: Not Given Insulin Detemir (Levemir (Bkc)) 10 units SC [facility] Last Admin: 12/26/17 21:59 Dose: 10 u Magnesium Hydroxide (Milk Of Magnesia) 30 ml PO DAILY PRN PRN Reason: Constipation Metoprolol Tartrate (Lopressor (Beta Felicia)) 50 mg PO BID [facility] Last Admin: 12/26/17 21:49 Dose: 50 mg Ondansetron HCl (Zofran) 4 mg IV Q8H PRN PRN PRN Reason: Nausea Prednisone (Prednisone) 5 mg PO DAILYCM [facility] Last Admin: 12/26/17 10:03 Dose: 5 mg Tramadol HCl (Ultram (G)) 50 mg PO Q8H PRN PRN PRN Reason: PAIN Last Admin: 12/25/17 21:14 Dose: 50 mg Assessment/Plan Active and Suspected Problems (Last Updated 11/09/17 @ 12:57 by Rayray Bernal, SAMANTA-C) Severe sepsis (Acute) Cellulitis of leg without foot, left (Acute) 72-year-old white female presents with a few day history of left upper extremity cellulitis and fever and chills. Patient admitted with severe sepsis and left lower extremity cellulitis. Patient has been started on vancomycin and Zosyn. Patient will receive IV fluids for her severe sepsis and follow her lactic acid until normalization. 1. Severe sepsis Present on admission Secondary to the left lower extremity cellulitis. Blood cultures drawn Resolved. 2. Left lower extremity cellulitis Discussed with microbiology showing a methicillin sensitive staph aureus but also possibly a group B Streptococcus. Patient has known allergies to cephalosporins the patient will be on penicillin VK 500 mg 4 times daily. 3. Chronic kidney disease stage III Appears to be stable at this time. Stable 4. Diabetes mellitus type 2 Patient also on metformin at home. That will be held given lactic acidosis. Patient will just have prandial blood sugar checks as well as a sliding scale insulin if needed. Fair control at this time. Continue to monitor. 5. DVT prophylaxis with subcu heparin
--- NOTE | 2017-12-27 08:22 | PN_ITS ---
Patient Problems: Active and Suspected Problems (Last Updated 11/09/17 @ 12:57 by Rayray Bernal, BROWNELL OPERATOR- C) Severe sepsis (Acute) Cellulitis of leg without foot, left (Acute) Subjective: His leg is doing better and patient otherwise feels well. Vitals/I&O's: Vital Signs Temp Pulse Resp BP Pulse Ox 36.8 C 95 16 131/82 H 96 12/27/17 02:38 12/27/17 02:38 12/27/17 02:38 12/27/17 02:38 12/27/17 07:14 Oxygen Flow Rate 2 Oxygen Delivery Method Room Air Weight: 94.3 kg Body Mass Index (BMI) 29.8 Intake and Output for Last 24 Hours 12/25/17 12/26/17 12/27/17 23:59 23:59 23:59 Intake Total 2406 / 2406 1317 / 1317 Balance 2406 / 2406 1317 / 1317 General: Alert, Cooperative, No apparent distress HEENT: Atraumatic, Normocephalic Extremities: Edema Skin: - - Resolving erythema of the left lower extremity. Patient still does have the superficial ulcers on the posterior aspect of her calf. No purulence no fluctuance no induration. Microbiology Past 72 Hours 12/26/17 12:40 Stool C. difficile DNA Amplification - Final 12/25/17 10:45 Wound - Leg, Left Gram Stain - Final 12/25/17 10:45 Wound - Leg, Left Wound Culture - Preliminary Staphylococcus aureus Laboratory Results 12/26/17 05:55: Total Counted Not Reportable, Differential Comment SCANNED 12/26/17 12:25: POC Glucose 107 12/26/17 16:13: POC Glucose 163 H 12/26/17 21:51: POC Glucose 136 H 12/27/17 05:42: WBC 11.9 H, RBC 2.73 L, Hgb 7.9 L, Hct 26.1 L, MCV 95.6, MCH 28.9, MCHC 30.3 L, RDW 16.6 H, RDW Differential 55.0 H, Plt Count 221, MPV 10.7 , Immature Gran % (Auto) 0.300, Neut % (Auto) 74.0 H, Lymph % (Auto) 17.6 L, [place] % (Auto) 4.6, Eos % (Auto) 3.2, Baso % (Auto) 0.3, Absolute Neuts (auto) 8.8 H, Absolute Lymphs (auto) 2.09, Total Counted Not Reportable 12/27/17 05:42: Sodium 139, Potassium 4.0, Chloride 108 H, Carbon Dioxide 22.0, Anion Gap 9, BUN 31 H, Creatinine 1.88 H, Estim Creat Clear Calc 29.68, Est GFR (MDRD) Af Amer 34 L, Est GFR (MDRD) Non-Af 28 L, BUN/Creatinine Ratio 16.5, Glucose 82, Calcium 8.6 12/27/17 06:45: POC Glucose 76 Current Medications Acetaminophen (Tylenol) 650 mg PO Q6H PRN PRN PRN Reason: Mild Pain (scale 0-3)/T>100.7 Last Admin: 12/25/17 15:36 Dose: 650 mg Allopurinol (Zyloprim) 100 mg PO DAILYCM [facility] Last Admin: 12/26/17 10:03 Dose: 100 mg Aspirin (Ecotrin) 81 mg PO DAILY@0800 [facility] Last Admin: 12/26/17 10:03 Dose: 81 mg Atorvastatin Calcium (Lipitor) 20 mg PO QHS [facility] Last Admin: 12/26/17 21:49 Dose: 20 mg Dextrose (D50w Syringe) 0 gm IV X1 PRN; Protocol PRN Reason: Hypoglycemia Ergocalciferol (Vitamin D) 50,000 unit PO WESA [facility] Last Admin: 12/26/17 10:03 Dose: 50,000 unit Glucagon () 1 mg IM .X1 PRN PRN Reason: Hypoglycemia Heparin Sodium (Porcine) (Heparin Na) 5,000 unit SC BID [facility] Last Admin: 12/26/17 21:49 Dose: 5,000 u Vancomycin HCl (Vancomycin) 1,000 mg in 200 mls @ 200 mls/hr IV Q24H [facility] Last Admin: 12/26/17 10:03 Dose: 200 mls/hr Insulin Aspart (Novolog Flexpen (Bkc)) 0 units SC TIDAC [facility] PRN Reason: Protocol Last Admin: 12/27/17 06:55 Dose: Not Given Insulin Detemir (Levemir (Bkc)) 10 units SC [facility] Last Admin: 12/26/17 21:59 Dose: 10 u Magnesium Hydroxide (Milk Of Magnesia) 30 ml PO DAILY PRN PRN Reason: Constipation Metoprolol Tartrate (Lopressor (Beta Felicia)) 50 mg PO BID [facility] Last Admin: 12/26/17 21:49 Dose: 50 mg Ondansetron HCl (Zofran) 4 mg IV Q8H PRN PRN PRN Reason: Nausea Prednisone (Prednisone) 5 mg PO DAILYCM [facility] Last Admin: 12/26/17 10:03 Dose: 5 mg Tramadol HCl (Ultram (G)) 50 mg PO Q8H PRN PRN PRN Reason: PAIN Last Admin: 12/25/17 21:14 Dose: 50 mg Assessment/Plan Active and Suspected Problems (Last Updated 11/09/17 @ 12:57 by Rayray Bernal, SAMANTA- C) Severe sepsis (Acute) Cellulitis of leg without foot, left (Acute) 72-year-old white female presents with a few day history of left upper extremity cellulitis and fever and chills. Patient admitted with severe sepsis and left lower extremity cellulitis. Patient has been started on vancomycin and Zosyn. Patient will receive IV fluids for her severe sepsis and follow her lactic acid until normalization. 1. Severe sepsis Present on admission Secondary to the left lower extremity cellulitis. Blood cultures drawn Resolved. 2. Left lower extremity cellulitis Discussed with microbiology showing a methicillin sensitive staph aureus but also possibly a group B Streptococcus. Patient has known allergies to cephalosporins the patient will be on penicillin VK 500 mg 4 times daily. 3. Chronic kidney disease stage III Appears to be stable at this time. Stable 4. Diabetes mellitus type 2 Patient also on metformin at home. That will be held given lactic acidosis. Patient will just have prandial blood sugar checks as well as a sliding scale insulin if needed. Fair control at this time. Continue to monitor. 5. DVT prophylaxis with subcu heparin
--- NOTE | 2017-12-27 08:30 | DCINST_ITS ---
- Discharge Diagnoses Current Active Problems: Current Active and Chronic Problems (Last Updated 11/09/17 @ 12:57 by JESSICA WilkinsonC) Severe sepsis (Acute) Cellulitis of leg without foot, left (Acute) CAD (coronary artery disease) (Chronic) You will use the following diet at home:: Calorie/Carbohydrate Controlled ( specify 1200, 1400, etc) - 1800 kcal/day Your food should be the consistency of: Regular Your liquids should be the consistency of: Regular/Thin Call your doctor if you observe: Fever of 101 or Higher, Shortness of breath Additional Dressing/Incision Instructions:: Dry wounds daily. Cover with gauze and wrap with Kerlix. Reinforced with Eder wraps to bilateral lower extremities. Allergies/Adverse Reactions: Allergies cefepime HCl [From Maxipime] Allergy (Verified 12/25/17 08:05) Itching cephalexin monohydrate [From Keflex] Allergy (Verified 12/25/17 08:05) Hives clopidogrel [From Plavix] Allergy (Verified 12/26/17 09:21) Itching and hives all over hydromorphone HCl [From Dilaudid] Adverse Reaction (Verified 12/25/17 08:05) Itching Medications to take at Discharge Ergocalciferol [Vitamin D] 50,000 unit PO WESA 12/19/14 PredniSONE 5 mg PO DAILY 12/19/14 Allopurinol [Zyloprim] 100 mg PO DAILYCM 01/23/15 Metoprolol Tartrate [Lopressor (beta reid)] 50 mg PO BID 12/03/16 Simvastatin [Zocor] 40 mg PO QHS 12/03/16 Aspirin E.C. [Ecotrin] 81 mg PO DAILY@0800 #30 tablet 12/05/16 Insulin Glargine [Lantus SoloStar Pen] 10 units SC QHS 04/01/17 Hydroxychloroquine [Plaquenil] 200 mg PO DAILYCM 12/25/17 Metformin HCl 500 mg PO BID 12/25/17 TraMADol [Ultram] 50 mg PO Q8H PRN PRN 12/25/17 Penicillin Vk [Pen-Vee K 250MG] 500 mg PO 4X/DAY #32 tab 12/27/17 The following prescriptions were given: Penicillin Vk [Pen-Vee K 250MG] 500 mg PO 4X/DAY #32 tab Primary Care Physician: Sonja Feliciano [Primary Care Provider] - Within 2 Weeks Please Follow Up With: Clinic,Wound When: 1-2 weeks Proposed Discharge Date: 12/27/17
--- NOTE | 2017-12-27 08:30 | PCM.DC.SUM ---
Discharge Date and Diagnosis - Problem List Patient Problems: Active and Suspected Problems (Last Updated 11/09/17 @ 12:57 by CRISTIAN Wilkinson) Severe sepsis (Acute) Cellulitis of leg without foot, left (Acute) Date of Admission: 12/25/17 Date of Discharge: 12/27/17 - Primary Discharge Diagnosis Active and Suspected Problems (Last Updated 11/09/17 @ 12:57 by CRISTIAN Wilkinson) Severe sepsis (Acute) Cellulitis of leg without foot, left (Acute) - Secondary Discharge Diagnosis Chronic Problems (Last Updated 11/09/17 @ 12:57 by CRISTIAN Wilkinson) CAD (coronary artery disease) (Chronic) Paroxysmal atrial fibrillation (Chronic) S/P angioplasty with stent (Chronic) EDGARDO to mid LAD 12/05/2016 CAD (coronary artery disease), [place] coronary artery (Chronic) DM2 (diabetes mellitus, type 2) (Chronic) Dyslipidemia (Chronic) Depression (Chronic) HTN (hypertension) (Chronic) CKD (chronic kidney disease) stage 3, GFR 30-59 ml/min (Chronic) Obesity (BMI 35.0-39.9 without comorbidity) (Chronic) 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 Electronically Signed: Jamie Milner MD at 6:50 EST Tel , Service support , Tibia/Fibula X-Ray 12/25/17 06:14 IMPRESSION: Knee osteoarthritis. No erosive lesions are seen. Electronically Signed: Jamie Milner MD at 6:47 EST Tel , Service support , Consultations 12/25/17 09:12 Consult: Onc/Wound/logistics intern Routine Comment: Operations: None Procedures: None Summary of Care Provided: The patient is a 72 year old F presents with severe sepsis and left lower extremity cellulitis. Patient did very well with fluids and antibiotics. Culture of the leg came back showing methicillin sensitive staph aureus and possibly also a group B strep. Patient will be discharged to complete a 10 day course of antibiotics including the time that she has been here. Patient was on vancomycin. Patient will be on penicillin VK 500 mg 4 times daily. Patient does have chronic lymphedema of her lower extremities plus also some superficial wounds. It is likely that the infection was able to infiltrate due to the patient's open wounds, which been chronic, and because of cellulitis. Patient has been doing the wraps on her own but the patient will continue with cleaning, dressing and wrapping her lower extremities. Patient was seen by physical therapy who recommended skilled needs. Patient declines understand that she lives with her daughter and will have her needs met that way. [] Discharge Diet: 1800 Calorie Control Diet Discharge Activity: Return to Normal Activity Call your doctor if you observe: Fever of 101 or Higher, Shortness of breath Additional Dressing/Incision Instructions:: Dry wounds daily. Cover with gauze and wrap with Kerlix. Reinforced with Eder wraps to bilateral lower extremities. Home Medications: Medications to take at Discharge Ergocalciferol [Vitamin D] 50,000 unit PO WESA 12/19/14 PredniSONE 5 mg PO DAILY 12/19/14 Allopurinol [Zyloprim] 100 mg PO DAILYCM 01/23/15 Metoprolol Tartrate [Lopressor (beta reid)] 50 mg PO BID 12/03/16 Simvastatin [Zocor] 40 mg PO QHS 12/03/16 Aspirin E.C. [Ecotrin] 81 mg PO DAILY@0800 #30 tablet 12/05/16 Insulin Glargine [Lantus SoloStar Pen] 10 units SC QHS 04/01/17 Hydroxychloroquine [Plaquenil] 200 mg PO DAILYCM 12/25/17 Metformin HCl 500 mg PO BID 12/25/17 TraMADol [Ultram] 50 mg PO Q8H PRN PRN 12/25/17 Penicillin Vk [Pen-Vee K 250MG] 500 mg PO 4X/DAY #32 tab 12/27/17 Following Prescrptions Were Given to Patient: Penicillin Vk [Pen-Vee K 250MG] 500 mg PO 4X/DAY #32 tab Primary Care Physician: Sonja Feliciano [Primary Care Provider] - Within 2 Weeks Please Follow Up With: Clinic,Wound When: 1-2 weeks Disposition: Home Minutes spent on discharge:: 32 Patient Condition:: Good Meaningful Use Info Meaningful Use Diagnoses (Choose all that apply): None applicable Code Visit Inpatient E&M: 26461 Disch Hosp
--- NOTE | 2017-12-27 08:33 | DS.PCM_ITS ---
Discharge Date and Diagnosis - Problem List Patient Problems: Active and Suspected Problems (Last Updated 11/09/17 @ 12:57 by JESSICA Wilkinson) Severe sepsis (Acute) Cellulitis of leg without foot, left (Acute) Date of Admission: 12/25/17 Date of Discharge: 12/27/17 - Primary Discharge Diagnosis Active and Suspected Problems (Last Updated 11/09/17 @ 12:57 by JESSICA Wilkinson) Severe sepsis (Acute) Cellulitis of leg without foot, left (Acute) - Secondary Discharge Diagnosis Chronic Problems (Last Updated 11/09/17 @ 12:57 by CRISTIAN Wilkinson) CAD (coronary artery disease) (Chronic) Paroxysmal atrial fibrillation (Chronic) S/P angioplasty with stent (Chronic) EDGARDO to mid LAD 12/05/2016 CAD (coronary artery disease), [place] coronary artery (Chronic) DM2 (diabetes mellitus, type 2) (Chronic) Dyslipidemia (Chronic) Depression (Chronic) HTN (hypertension) (Chronic) CKD (chronic kidney disease) stage 3, GFR 30-59 ml/min (Chronic) Obesity (BMI 35.0-39.9 without comorbidity) (Chronic) 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 Electronically Signed: Jamie Milner MD at 6:50 EST Tel , Service support , Tibia/Fibula X-Ray 12/25/17 06:14 IMPRESSION: Knee osteoarthritis. No erosive lesions are seen. Electronically Signed: Jamie Milner MD at 6:47 EST Tel , Service support , Consultations 12/25/17 09:12 Consult: Onc/Wound/dough raiser Routine Comment: Operations: None Procedures: None Summary of Care Provided: The patient is a 72 year old F presents with severe sepsis and left lower extremity cellulitis. Patient did very well with fluids and antibiotics. Culture of the leg came back showing methicillin sensitive staph aureus and possibly also a group B strep. Patient will be discharged to complete a 10 day course of antibiotics including the time that she has been here. Patient was on vancomycin. Patient will be on penicillin VK 500 mg 4 times daily. Patient does have chronic lymphedema of her lower extremities plus also some superficial wounds. It is likely that the infection was able to infiltrate due to the patient's open wounds, which been chronic, and because of cellulitis. Patient has been doing the wraps on her own but the patient will continue with cleaning, dressing and wrapping her lower extremities. Patient was seen by physical therapy who recommended skilled needs. Patient declines understand that she lives with her daughter and will have her needs met that way. [] Discharge Diet: 1800 Calorie Control Diet Discharge Activity: Return to Normal Activity Call your doctor if you observe: Fever of 101 or Higher, Shortness of breath Additional Dressing/Incision Instructions:: Dry wounds daily. Cover with gauze and wrap with Kerlix. Reinforced with Eder wraps to bilateral lower extremities. Home Medications: Medications to take at Discharge Ergocalciferol [Vitamin D] 50,000 unit PO WESA 12/19/14 PredniSONE 5 mg PO DAILY 12/19/14 Allopurinol [Zyloprim] 100 mg PO DAILYCM 01/23/15 Metoprolol Tartrate [Lopressor (beta reid)] 50 mg PO BID 12/03/16 Simvastatin [Zocor] 40 mg PO QHS 12/03/16 Aspirin E.C. [Ecotrin] 81 mg PO DAILY@0800 #30 tablet 12/05/16 Insulin Glargine [Lantus SoloStar Pen] 10 units SC QHS 04/01/17 Hydroxychloroquine [Plaquenil] 200 mg PO DAILYCM 12/25/17 Metformin HCl 500 mg PO BID 12/25/17 TraMADol [Ultram] 50 mg PO Q8H PRN PRN 12/25/17 Penicillin Vk [Pen-Vee K 250MG] 500 mg PO 4X/DAY #32 tab 12/27/17 Following Prescrptions Were Given to Patient: Penicillin Vk [Pen-Vee K 250MG] 500 mg PO 4X/DAY #32 tab Primary Care Physician: Sonja Feliciano [Primary Care Provider] - Within 2 Weeks Please Follow Up With: Clinic,Wound When: 1-2 weeks Disposition: Home Minutes spent on discharge:: 32 Patient Condition:: Good Meaningful Use Info Meaningful Use Diagnoses (Choose all that apply): None applicable Code Visit Inpatient E&M: 98740 Disch Hosp
[2017-12-27 08:35] VITALS: BP 118/61; PULSE 94; RESP 16; TEMP 36.7; O2SAT 95
[2017-12-27 08:36] VITALS: PULSE 94
[2017-12-27] MEDS: Allopurinol 100 MG Tablet PO (08:36)
[2017-12-27] MEDS: Metoprolol Tartrate 50 MG Tablet PO (08:36)
[2017-12-27] MEDS: Aspirin E.C. 81 MG Tablet PO (08:36)
[2017-12-27 11:51] LABS: Bedside Glucose 182 mg/dL (70-110)
== END 2017-12-27 13:00 | disposition home or self-care (01) | DRG 872 ==
LOC: ED 06:05 → PCU 08:32 → MS2 12-26 12:53
PROVIDERS: Emergency Provider Emergency Medicine; Family Provider Nurse Practitioner; PCP Nurse Practitioner
DX: A41.9 Sepsis, unspecified organism (principal); E11.22 Type 2 diabetes mellitus with diabetic chronic kidney disease; E87.2 Acidosis; E11.59 Type 2 diabetes mellitus with other circulatory complications; L03.116 Cellulitis of left lower limb; L97.221 Non-pressure chronic ulcer of left calf limited to breakdown of skin; R65.20 Severe sepsis without septic shock; E11.622 Type 2 diabetes mellitus with other skin ulcer; I83.022 Varicose veins of left lower extremity with ulcer of calf; I48.0 Paroxysmal atrial fibrillation; I12.9 Hypertensive chronic kidney disease with stage 1 through stage 4 chronic kidney disease, or unspecified chronic kidney disease; N18.3 Chronic kidney disease, stage 3 (moderate); I25.10 Atherosclerotic heart disease of native coronary artery without angina pectoris; E78.5 Hyperlipidemia, unspecified; M10.9 Gout, unspecified; E66.9 Obesity, unspecified; Z68.29 Body mass index [BMI] 29.0-29.9, adult; Z12.31 Encounter for screening mammogram for malignant neoplasm of breast; Z78.0 Asymptomatic menopausal state; M85.80 Other specified disorders of bone density and structure, unspecified site; Z95.5 Presence of coronary angioplasty implant and graft; F32.9 Major depressive disorder, single episode, unspecified; Z79.4 Long term (current) use of insulin; Z79.52 Long term (current) use of systemic steroids; Z79.899 Other long term (current) drug therapy; Z88.1 Allergy status to other antibiotic agents
CPT/HCPCS: 36415; 71045; 73590; 77063; 77067; 77080; 80048; 80053; 81001; 82962; 83605; 85025; 85610; 85730; 87040; 87070; 87077; 87086; 87088; 87186; 87205; 87493; 87640; 93005; 97110; 97162; 97166; 97802; 99285; J7030; J7040; J7050; A4216

== ENCOUNTER → 2018-01-18 12:06 | Outpatient (CLI) | payer MEDICARE, SELFPAY ==
[2016-12-05 15:47] VITALS: BMI 35.6
[2018-01-18 13:25] LABS: Absolute Lymphocyte Count 4.69 X10^3/ul (0.83-4.51); Absolute Neutrophil Count 11.8 X10^3/uL (2.0-7.7); Basophil# 0.16 X10^3/uL; Basophil% 0.9 % (0-1); Eosinophil# 0.65 X10^3/uL; Eosinophils% 3.5 % (0-5); Hematocrit 28.2 % (37-47); Hemoglobin 8.5 g/dl (12.0-15.0); Lymphocyte # 4.69 X10^3/ul (4.0); Lymphocyte % 25.1 % (19-41); Mean Corp Hgb Conc 30.1 g/gl (32-36); Mean Corpuscular Hgb 28.1 pg (27.0-32.0); Mean Corpuscular Volume 93.4 fL (81-99); Mean Platelet Vol. 11.1 fl (6.2-12.0); Monocyte# 1.17 X10^3/uL; Monocyte% 6.3 % (0-10); Neutrophil # 11.78 X10^3/uL (2.7-7.7); Neutrophil % 62.9 % (47-70); Platelet Count 282 K/mm3 (150-450); RBC Distribution Width CV 16.6 % (11.6-14.6); RBC Distribution Width SD 54.2 fl (35.1-43.9); Red Blood Count 3.02 M/mm3 (4.2-5.4); White Blood Count 18.7 K/mm3 (4.4-11.0)
[2018-01-18 13:27] LABS: POSITIVE COUNT NO; POSITIVE DIFFERENTIAL NO; POSITIVE MORPHOLOGY NO
[2018-01-18 13:53] LABS: ALB/GLOB Ratio 0.7 RATIO (0.9-2.4); AST(SGOT) 18 U/L (15-37); Alanine Aminotransfer ALT/SGPT 14 U/L (13-56); Albumin, Serum 2.9 g/dL (3.2-5.0); Alkaline Phosphatase 123 U/L (45-117); Anion Gap 10 (5-15); BUN 37 mg/dL (7-18); BUN/Creat Ratio 22.2 RATIO (10-20); Calcium,Total 9.1 mg/dL (8.5-10.1); Chloride 104 mmol/L (98-107); Creatinine, Serum 1.67 mg/dL (0.55-1.02); EST Glomerular Filtration Rate 32 mL/min (>60); Est Glom Filt Rate - Afr Amer 39 mL/min (>60); Globulin 4.4 g/dL (2.2-4.2); Glucose 106 mg/dL (74-106); Protein, Total 7.3 g/dL (6.4-8.2); Sodium Level 137 mmol/L (136-145)
== END ==
PROVIDERS: Family Provider Nurse Practitioner; PCP Nurse Practitioner; Visit Provider Internal Medicine Rheumatology
DX: M06.071 Rheumatoid arthritis without rheumatoid factor, right ankle and foot (principal); M10.00 Idiopathic gout, unspecified site; M17.0 Bilateral primary osteoarthritis of knee; M21.40 Flat foot [pes planus] (acquired), unspecified foot; I10 Essential (primary) hypertension; E78.5 Hyperlipidemia, unspecified; I26.99 Other pulmonary embolism without acute cor pulmonale; Z86.718 Personal history of other venous thrombosis and embolism
CPT/HCPCS: 36415; 80053; 85025

== ENCOUNTER 2018-01-27 10:15 | Outpatient (RCR) | payer MEDICARE, SELFPAY ==
[2016-12-05 15:47] VITALS: BMI 35.6
[2018-01-07 12:54] VITALS: BP 141/74; PULSE 69; RESP 16; TEMP 37; BMI 36.6
--- NOTE | 2018-01-07 16:32 | PCM.WC.HP ---
(1) Nonhealing ulcer of left lower extremity with fat layer exposed Status: Acute Current Visit: Yes Code(s): L97.922 - Non-pressure chronic ulcer of unspecified part of left lower leg with fat layer exposed (2) Lymphedema Status: Acute Current Visit: Yes Code(s): I89.0 - Lymphedema, not elsewhere classified (3) Cellulitis of left lower leg Status: Acute Current Visit: Yes Code(s): L03.116 - Cellulitis of left lower limb (4) CAD (coronary artery disease) Status: Chronic Current Visit: No Code(s): I25.10 - Atherosclerotic heart disease of [place] coronary artery without angina pectoris (5) CKD (chronic kidney disease) stage 3, GFR 30-59 ml/min Status: Chronic Current Visit: No (6) HTN (hypertension) Status: Chronic Current Visit: No Qualifiers: Code(s): I10 - Essential (primary) hypertension (7) Type 2 diabetes mellitus with other circulatory complications Status: Chronic Current Visit: Yes Code(s): E11.59 - Type 2 diabetes mellitus with other circulatory complications (8) PVD (peripheral vascular disease) Status: Acute Current Visit: Yes Code(s): I73.9 - Peripheral vascular disease, unspecified (9) Diminished pulses in lower extremity Status: Acute Current Visit: Yes Code(s): R09.89 - Other specified symptoms and signs involving the circulatory and respiratory systems History of Present Illness Date of Service: 01/07/18 Chief Complaint: ulcers on the back of left leg that arent healing History of Wound: This is a 72-year-old white female who presents to the wound healing center today with complaint of nonhealing ulcers on the left posterior lower extremity which has been going on intermittently since 2013. She was recently admitted to [facility] from through 12/27/17 for severe sepsis and cellulitis of the left leg. She was treated with IV antibiotics and sent home on penicillin V potassium 4 times daily for 7 days and was instructed to follow-up with infectious disease and with the wound healing center. She does have a past medical history which is significant for coronary artery disease, paroxysmal atrial fibrillation, type 2 diabetes mellitus, RA,depression, hyperlipidemia, hypertension, CKD, peripheral vascular disease, and chronic lymphedema. Her wound treatments so far has been covering the ulcers with a bandage and EDER wraps. She does state that the cellulitis has improved and that the pain has improved as well. She denies any discharge or foul-smelling odor from the wound. She did have arterial studies done in November 2015 which demonstrated left TBI of 0.6 and right TBI of 0.34 her vascular study at that time was suggestive of severe distal small vessel arterial occlusive disease in the right lower extremity and moderate distal small vessel arterial occlusive disease in the left lower extremity. She states that her diabetes is typically well controlled and that she has a chronic problem with ulcers in her lower extremities ever since having skin grafts placed in the past. The patient otherwise denies any fever, chills, nausea, vomiting, shortness of breath, chest pain or pressure, palpitations, orthopnea, syncope or presyncopal episodes. 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 I/D right toe, skin grafts BLE Allergies/Adverse Reactions: Allergies cefepime HCl [From Maxipime] Allergy (Verified 01/07/18 13:01) Itching cephalexin monohydrate [From Keflex] Allergy (Verified 01/07/18 13:01) Hives clopidogrel [From Plavix] Allergy (Verified 01/07/18 13:01) Itching and hives all over hydromorphone HCl [From Dilaudid] Adverse Reaction (Verified 01/07/18 13:01) Itching Home Medications: Ambulatory Orders Medication Instructions Recorded Ergocalciferol [Vitamin D] 50,000 unit PO WESA 12/19/14 PredniSONE 5 mg PO DAILY 12/19/14 Allopurinol [Zyloprim] 300 mg PO DAILYCM 01/23/15 Metoprolol Tartrate [Lopressor 50 mg PO BID 12/03/16 (beta reid)] Simvastatin [Zocor] 40 mg PO QHS 12/03/16 Aspirin E.C. [Ecotrin] 81 mg PO DAILY@0800 #30 tablet 12/05/16 Hydroxychloroquine [Plaquenil] 200 mg PO DAILYCM 12/25/17 Metformin HCl 500 mg PO BID 12/25/17 Insulin Glargine,Hum.rec.anlog 10 unit 01/07/18 [Lantus] Tramadol HCl [Ultram] 50 mg PO PRN PRN 01/07/18 - Family History Paternal Family History: Family History (Last Updated 11/09/17 @ 12:05 by CRISTIAN Wilkinson) Father Hypertension Brother CAD (coronary artery disease) Diabetes Maternal Family History: Family History (Last Updated 11/09/17 @ 12:05 by CRISTIAN Wilkinson) Father Hypertension Brother CAD (coronary artery disease) Diabetes, Hypertension Smoking Status: Never smoker Tobacco Use: Non-smoker Alcohol: None Drugs: None Review of Systems Constitutional: Denies: Chills, Fever, Weight Change Eyes: Denies: Pain, Vision Change HEENT: Denies: Difficulty Hearing, Difficulty Swallowing, Sinus Congestion Cardiovascular: Denies: Chest Pain, Palpitations Respiratory: Denies: Cough, Shortness of Breath Gastrointestinal: Denies: Diarrhea, Nausea, Vomiting Genitourinary: Denies: Dysuria, Hematuria Skin: Reports: Wounds - see HPI Endocrine: Denies: Heat/ Cold Intolerance, Polydipsia, Polyuria Hematologic/ Lymphatic: Denies: Easy Bruising, Easy Bleeding - Physical Exam Vital Signs Temp Pulse Resp BP 98.6 F 69 16 141/74 H 01/07/18 12:54 01/07/18 12:54 01/07/18 12:54 01/07/18 12:54 General: Alert, Oriented x3, Cooperative, No apparent distress HEENT: PERRLA, EOMI Oral: Moist Mucosa Lungs: Clear to auscultation Cardiovascular: Regular rate, Regular Rhythm Abdomen: Soft, Non Tender Extremities: Diminished Peripheral Pulses - BLLE, Edema - +1 BLLE Skin: Ulcer/ Wound - Cluster wound present left posterior calf with slough present, site is mildly pink surrounding ulcerations however it is not warm to touch and there is no exudate., - - Areas of ecchymosis and discoloration present bilateral upper and lower extremities Wound Measurements and Assessment - Nurse 1 - General Ulcer Measurement Start: 01/07/18 12:51 Freq: Status: Active Protocol: Activity Type Activity Date Activity User E-Sign Co-Sign Detail Recorded Client Recorded Date Recorded By Document 01/07/18 12:54 [facility] [id number] 01/07/18 13:15 [facility] 01/07/18 12:54 Wound Center Nurse 1 [Ulcer Assessment Protocol: WC.WD.LOC] #6- LT CALF CLUSTER -Combined with other wound No -Current Size (cm) - Length 4.5 -Current Size (cm) - Width 2 -Current Size (cm) - Depth 0.1 -Total Square Cm 9.0 -Date of Last Picture (Recall this 01/07/18 field) -Photo Taken Yes -Epithelialization None Present -Tunneling No -Undermining/Tunneling No -Exudate Amt Medium (34-66%) -Exudate Type Serosanguineous -Wound Margin Distinct, Outline Attached -Granulation Amt Medium (34-66%) -Granulation Quality [place] -Necrosis Amt Medium (34-66%) -Necrotic Tissue Type Adherent Slough -Structure Exposed N/A -Texture (Cassi-wound Skin Appearance) Localized Edema Scarring -Moisture (Cassi-wound Skin Appearance Dry/Scaly ) -Color (Cassi-wound Skin Appearance) Assessed Ecchymosis -Temperature (Cassi-wound Skin No Abnormality Appearance) (Pt Warm) -Tenderness on Palpation (Cassi-wound No Skin Appearance) -Ulcer Cleansing Rinsed/ Irrigated with Saline -Foul Odor after Cleansing No -Anesthetic Used 4% Lidocaine Solution [Edema Assessment] -Lower Limb Edema Present Yes -Right Calf (cm) 44 -Right Ankle (cm) 22.4 -Left Calf (cm) 40 -Left Ankle (cm) 21.6 Musculoskeletal: No Tenderness to Palpation of Joints or Extremities Neurological: Cranial nerves II-XII grossly intact Psych/Mental Status: Normal Affect, Appropriate, Alert and oriented to time, place, person, mood and affect Debridement Note Wound debrided: Left lower extremity ulceration Laterality: Left Type of Debridement: Excisional debridement Anesthesia Used: 4% Lidocaine Solution Depth: in the subcutaneous layer Percentage of wound debrided: 100 Instrument Used: 5mm curette Tissue Removed: Slough and devitalized tissue Severity: Fat Layer Exposed Amount of bleeding with debridement: Mild Bleeding Controlled with: Pressure Patient tolerated procedure well Post debridement measurements listed under nursing documentation Assessment/Plan Active Problems (Last Updated 11/09/17 @ 12:57 by Rayray Bernal, ADULT EDUCATION MANAGER-C) Nonhealing ulcer of left lower extremity with fat layer exposed (Acute) Lymphedema (Acute) PVD (peripheral vascular disease) (Acute) Diminished pulses in lower extremity (Acute) Cellulitis of left lower leg (Acute) 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 She does have a nonhealing ulcer of the left lower extremity which is chronic in nature. Previous vascular studies reviewed from 2016 and demonstrated arterial occlusive disease. Will repeat repeat vascular studies and potentially make referral to vascular surgeon afterwards. Cultures collected. Patient's cellulitis seems to be resolving. Blood work ordered. A subcutaneous debridement was performed during today's visit and the patient tolerated this well. Instructed patient to follow-up with infectious disease as she was referred after her hospital stay. Daily dressing changes to include moistened Fibracol and covered with Adaptic and gauze. She may continue with her light compression of Eder wraps. Did discuss with patient that her chronic wounds may be impaired due to her use of daily prednisone and that she should discuss her options with her funeral prearrangement counselor. Discussed with patient the importance of diet and nutrition and wound healing and that she should try to keep her blood sugars under control. Patient verbalized understanding. Discussed with patient red flag symptoms of systemic infection that require urgent medical attention. Patient will otherwise follow-up in the wound center in 1 week. This note was generated with [employer] dictation software. It may contain incorrect words, spelling, and punctuation that were not noted in checking the note before signing. Code Visit Office Visits / Consults: [id number] OV L4 Est [id number]: [id number] [place] subq tissue 20 sq cm/<
[2018-01-07 19:55] LABS: Absolute Lymphocyte Count 2.64 X10^3/ul (0.83-4.51); Absolute Neutrophil Count 9.1 X10^3/uL (2.0-7.7); Basophil# 0.05 X10^3/uL; Basophil% 0.4 % (0-1); Eosinophil# 0.06 X10^3/uL; Eosinophils% 0.5 % (0-5); Hematocrit 28.1 % (37-47); Hemoglobin 8.2 g/dl (12.0-15.0); Lymphocyte # 2.64 X10^3/ul (4.0); Mean Corp Hgb Conc 29.2 g/gl (32-36); Mean Corpuscular Hgb 27.9 pg (27.0-32.0); Mean Corpuscular Volume 95.6 fL (81-99); Mean Platelet Vol. 10.6 fl (6.2-12.0); Monocyte# 0.68 X10^3/uL; Monocyte% 5.4 % (0-10); Neutrophil % 72.3 % (47-70); Platelet Count 279 K/mm3 (150-450); RBC Distribution Width CV 16.9 % (11.6-14.6); RBC Distribution Width SD 59.2 fl (35.1-43.9); Red Blood Count 2.94 M/mm3 (4.2-5.4); White Blood Count 12.6 K/mm3 (4.4-11.0)
[2018-01-07 19:58] LABS: POSITIVE COUNT NO; POSITIVE DIFFERENTIAL NO; POSITIVE MORPHOLOGY NO
[2018-01-07 20:15] LABS: Erythrocyte Sedimentation Rate 81 mm/hr (0-30)
[2018-01-07 20:19] LABS: ALB/GLOB Ratio 0.7 RATIO (0.9-2.4); AST(SGOT) 14 U/L (15-37); Alanine Aminotransfer ALT/SGPT 15 U/L (13-56); Albumin, Serum 2.8 g/dL (3.2-5.0); Alkaline Phosphatase 101 U/L (45-117); Anion Gap 10 (5-15); BUN 31 mg/dL (7-18); Calcium,Total 8.9 mg/dL (8.5-10.1); Chloride 106 mmol/L (98-107); Creatinine, Serum 1.82 mg/dL (0.55-1.02); EST Glomerular Filtration Rate 29 mL/min (>60); Est Glom Filt Rate - Afr Amer 35 mL/min (>60); Estimated Creatinine Clearance 22.42 ml/min; Globulin 4.2 g/dL (2.2-4.2); Glucose 101 mg/dL (74-106); Potassium 4.5 mmol/L (3.5-5.1); Prealbumin 19.6 mg/dL (20.0-40.0); Sodium Level 140 mmol/L (136-145)
[2018-01-07 20:22] LABS: Hemoglobin A1c 6.3 % (4.2-6.3)
--- NOTE | 2018-01-08 16:49 | HP.PCM_ITS ---
(1) Nonhealing ulcer of left lower extremity with fat layer exposed Status: Acute Current Visit: Yes Code(s): L97.922 - Non-pressure chronic ulcer of unspecified part of left lower leg with fat layer exposed (2) Lymphedema Status: Acute Current Visit: Yes Code(s): I89.0 - Lymphedema, not elsewhere classified (3) Cellulitis of left lower leg Status: Acute Current Visit: Yes Code(s): L03.116 - Cellulitis of left lower limb (4) CAD (coronary artery disease) Status: Chronic Current Visit: No Code(s): I25.10 - Atherosclerotic heart disease of [place] coronary artery without angina pectoris (5) CKD (chronic kidney disease) stage 3, GFR 30-59 ml/min Status: Chronic Current Visit: No (6) HTN (hypertension) Status: Chronic Current Visit: No Qualifiers: Code(s): I10 - Essential (primary) hypertension (7) Type 2 diabetes mellitus with other circulatory complications Status: Chronic Current Visit: Yes Code(s): E11.59 - Type 2 diabetes mellitus with other circulatory complications (8) PVD (peripheral vascular disease) Status: Acute Current Visit: Yes Code(s): I73.9 - Peripheral vascular disease, unspecified (9) Diminished pulses in lower extremity Status: Acute Current Visit: Yes Code(s): R09.89 - Other specified symptoms and signs involving the circulatory and respiratory systems History of Present Illness Date of Service: 01/07/18 Chief Complaint: ulcers on the back of left leg that arent healing History of Wound: This is a 72-year-old white female who presents to the wound healing center today with complaint of nonhealing ulcers on the left posterior lower extremity which has been going on intermittently since 2013. She was recently admitted to [facility] from through 12/27/17 for severe sepsis and cellulitis of the left leg. She was treated with IV antibiotics and sent home on penicillin V potassium 4 times daily for 7 days and was instructed to follow-up with infectious disease and with the wound healing center. She does have a past medical history which is significant for coronary artery disease, paroxysmal atrial fibrillation, type 2 diabetes mellitus, RA,depression, hyperlipidemia, hypertension, CKD, peripheral vascular disease, and chronic lymphedema. Her wound treatments so far has been covering the ulcers with a bandage and EDER wraps. She does state that the cellulitis has improved and that the pain has improved as well. She denies any discharge or foul-smelling odor from the wound. She did have arterial studies done in November 2015 which demonstrated left TBI of 0.6 and right TBI of 0.34 her vascular study at that time was suggestive of severe distal small vessel arterial occlusive disease in the right lower extremity and moderate distal small vessel arterial occlusive disease in the left lower extremity. She states that her diabetes is typically well controlled and that she has a chronic problem with ulcers in her lower extremities ever since having skin grafts placed in the past. The patient otherwise denies any fever, chills, nausea, vomiting, shortness of breath, chest pain or pressure, palpitations, orthopnea, syncope or presyncopal episodes. 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 I/D right toe, skin grafts BLE Allergies/Adverse Reactions: Allergies cefepime HCl [From Maxipime] Allergy (Verified 01/07/18 13:01) Itching cephalexin monohydrate [From Keflex] Allergy (Verified 01/07/18 13:01) Hives clopidogrel [From Plavix] Allergy (Verified 01/07/18 13:01) Itching and hives all over hydromorphone HCl [From Dilaudid] Adverse Reaction (Verified 01/07/18 13:01) Itching Home Medications: Ambulatory Orders Medication Instructions Recorded Ergocalciferol [Vitamin D] 50,000 unit PO WESA 12/19/14 PredniSONE 5 mg PO DAILY 12/19/14 Allopurinol [Zyloprim] 300 mg PO DAILYCM 01/23/15 Metoprolol Tartrate [Lopressor 50 mg PO BID 12/03/16 (beta reid)] Simvastatin [Zocor] 40 mg PO QHS 12/03/16 Aspirin E.C. [Ecotrin] 81 mg PO DAILY@0800 #30 tablet 12/05/16 Hydroxychloroquine [Plaquenil] 200 mg PO DAILYCM 12/25/17 Metformin HCl 500 mg PO BID 12/25/17 Insulin Glargine,Hum.rec.anlog 10 unit 01/07/18 [Lantus] Tramadol HCl [Ultram] 50 mg PO PRN PRN 01/07/18 - Family History Paternal Family History: Family History (Last Updated 11/09/17 @ 12:05 by CRISTIAN Wilkinson) Father Hypertension Brother CAD (coronary artery disease) Diabetes Maternal Family History: Family History (Last Updated 11/09/17 @ 12:05 by CRISTIAN Wilkinson) Father Hypertension Brother CAD (coronary artery disease) Diabetes, Hypertension Smoking Status: Never smoker Tobacco Use: Non-smoker Alcohol: None Drugs: None Review of Systems Constitutional: Denies: Chills, Fever, Weight Change Eyes: Denies: Pain, Vision Change HEENT: Denies: Difficulty Hearing, Difficulty Swallowing, Sinus Congestion Cardiovascular: Denies: Chest Pain, Palpitations Respiratory: Denies: Cough, Shortness of Breath Gastrointestinal: Denies: Diarrhea, Nausea, Vomiting Genitourinary: Denies: Dysuria, Hematuria Skin: Reports: Wounds - see HPI Endocrine: Denies: Heat/ Cold Intolerance, Polydipsia, Polyuria Hematologic/ Lymphatic: Denies: Easy Bruising, Easy Bleeding - Physical Exam Vital Signs Temp Pulse Resp BP 98.6 F 69 16 141/74 H 01/07/18 12:54 01/07/18 12:54 01/07/18 12:54 01/07/18 12:54 General: Alert, Oriented x3, Cooperative, No apparent distress HEENT: PERRLA, EOMI Oral: Moist Mucosa Lungs: Clear to auscultation Cardiovascular: Regular rate, Regular Rhythm Abdomen: Soft, Non Tender Extremities: Diminished Peripheral Pulses - BLLE, Edema - +1 BLLE Skin: Ulcer/ Wound - Cluster wound present left posterior calf with slough present, site is mildly pink surrounding ulcerations however it is not warm to touch and there is no exudate., - - Areas of ecchymosis and discoloration present bilateral upper and lower extremities Wound Measurements and Assessment - Nurse 1 - General Ulcer Measurement Start: 01/07/18 12:51 Freq: Status: Active Protocol: Activity Type Activity Date Activity User E-Sign Co-Sign Detail Recorded Client Recorded Date Recorded By Document 01/07/18 12:54 [facility] [id number] 01/07/18 13:15 [facility] 01/07/18 12:54 Wound Center Nurse 1 [Ulcer Assessment Protocol: WC.WD.LOC] #6- LT CALF CLUSTER -Combined with other wound No -Current Size (cm) - Length 4.5 -Current Size (cm) - Width 2 -Current Size (cm) - Depth 0.1 -Total Square Cm 9.0 -Date of Last Picture (Recall this 01/07/18 field) -Photo Taken Yes -Epithelialization None Present -Tunneling No -Undermining/Tunneling No -Exudate Amt Medium (34-66%) -Exudate Type Serosanguineous -Wound Margin Distinct, Outline Attached -Granulation Amt Medium (34-66%) -Granulation Quality [place] -Necrosis Amt Medium (34-66%) -Necrotic Tissue Type Adherent Slough -Structure Exposed N/A -Texture (Cassi-wound Skin Appearance) Localized Edema Scarring -Moisture (Cassi-wound Skin Appearance Dry/Scaly ) -Color (Cassi-wound Skin Appearance) Assessed Ecchymosis -Temperature (Cassi-wound Skin No Abnormality Appearance) (Pt Warm) -Tenderness on Palpation (Cassi-wound No Skin Appearance) -Ulcer Cleansing Rinsed/ Irrigated with Saline -Foul Odor after Cleansing No -Anesthetic Used 4% Lidocaine Solution [Edema Assessment] -Lower Limb Edema Present Yes -Right Calf (cm) 44 -Right Ankle (cm) 22.4 -Left Calf (cm) 40 -Left Ankle (cm) 21.6 Musculoskeletal: No Tenderness to Palpation of Joints or Extremities Neurological: Cranial nerves II-XII grossly intact Psych/Mental Status: Normal Affect, Appropriate, Alert and oriented to time, place, person, mood and affect Debridement Note Wound debrided: Left lower extremity ulceration Laterality: Left Type of Debridement: Excisional debridement Anesthesia Used: 4% Lidocaine Solution Depth: in the subcutaneous layer Percentage of wound debrided: 100 Instrument Used: 5mm curette Tissue Removed: Slough and devitalized tissue Severity: Fat Layer Exposed Amount of bleeding with debridement: Mild Bleeding Controlled with: Pressure Patient tolerated procedure well Post debridement measurements listed under nursing documentation Assessment/Plan Active Problems (Last Updated 11/09/17 @ 12:57 by Rayray Bernal, [facility]-C) Nonhealing ulcer of left lower extremity with fat layer exposed (Acute) Lymphedema (Acute) PVD (peripheral vascular disease) (Acute) Diminished pulses in lower extremity (Acute) Cellulitis of left lower leg (Acute) 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 She does have a nonhealing ulcer of the left lower extremity which is chronic in nature. Previous vascular studies reviewed from 2016 and demonstrated arterial occlusive disease. Will repeat repeat vascular studies and potentially make referral to vascular surgeon afterwards. Cultures collected. Patient's cellulitis seems to be resolving. Blood work ordered. A subcutaneous debridement was performed during today's visit and the patient tolerated this well. Instructed patient to follow-up with infectious disease as she was referred after her hospital stay. Daily dressing changes to include moistened Fibracol and covered with Adaptic and gauze. She may continue with her light compression of Eder wraps. Did discuss with patient that her chronic wounds may be impaired due to her use of daily prednisone and that she should discuss her options with her slab puller. Discussed with patient the importance of diet and nutrition and wound healing and that she should try to keep her blood sugars under control. Patient verbalized understanding. Discussed with patient red flag symptoms of systemic infection that require urgent medical attention. Patient will otherwise follow-up in the wound center in 1 week. This note was generated with [employer] dictation software. It may contain incorrect words, spelling, and punctuation that were not noted in checking the note before signing. Code Visit Office Visits / Consults: 42854 OV L4 Est 111xxx-113xx: [id number] [place] subq tissue 20 sq cm/<
--- NOTE | 2018-01-14 13:10 | VDLE_ITS ---
Reason For Study: Non-healing wound RIGHT LEFT CFV is compressible, spontaneous, phasic, CFV is compressible, spontaneous, phasic, competent and demonstrates normal competent, and demonstrates normal augmentation. augmentation. FV is compressible, spontaneous, phasic, FV is compressible, spontaneous, phasic, competent and demonstrates normal competent and demonstrates normal augmentation. augmentation. POP V is compressible, spontaneous, phasic, POP V is compressible, spontaneous, phasic, competent and demonstrates normal competent and demonstrates normal augmentation. augmentation. T/P Trunk is compressible. T/P Trunk is compressible. PTV is compressible. PTV is compressible. RT PerV is compressible. LT PerV is compressible. SFJ is INCOMPETENT SFJ is INCOMPETENT GSV is competent above knee GSV is INCOMPETENT with reflux greater GSV is INCOMPETENT below knee with reflux than .5 sec and diameter of .57 x .55 cm greater than .5 sec and diameter of .63 SSV is competent and partially compressible x .61cm with bright intraluminal echoes consistant SSV is competent with chronic clot Hypoechoic structure rt medial pop space Hypoechoic structure noted lt medial pop measuring space. Unable to measure due to size and 4.0 x .71 cm in long. Non-vascular. configuration. Non-vascular. Procedure Exam performed in department. A preliminary report was called and/or faxed to [facility]. Interpretation Summary Deep veins of the lower extremities are bilaterally patent and compressible segmentally. There is no evidence of deep vein thrombosis on either side. Valvular competence appears intact within the proximal deep venous systems bilaterally. The greater saphenous veins appear bilaterally patent and compressible segmentally. Sapheno-femoral junctions are bilaterally incompetent . The right greater saphenous vein appears competent above the knee. The right greater saphenous vein appears incompetent below the knee. The left greater saphenous vein appears segmentally incompetent. The right small saphenous vein is patent and competent. Chronic venous changes are noted in the left small saphenous vein, which is partially compressible and demonstrates bright intraluminal echogenicity. A non-vascular, hypoechoic structure is noted in the right medial popliteal space, measuring 4.0 cm x 0.71 cm. A non-vascular, hypoechoic structure is noted in the left medial popliteal space. These may represent popliteal cysts. Clinical correlation is advised. Ordering Physician: Darinel Beck Performed By: Kimberly Macdonald RVT
[2018-01-14 14:57] VITALS: BP 147/70; PULSE 78; RESP 18; TEMP 35.4; BMI 36.6
--- NOTE | 2018-01-14 17:23 | PCM.WC.PN ---
(1) Nonhealing ulcer of left lower extremity with fat layer exposed Status: Acute Current Visit: Yes Code(s): L97.922 - Non-pressure chronic ulcer of unspecified part of left lower leg with fat layer exposed (2) Lymphedema Status: Acute Current Visit: Yes Code(s): I89.0 - Lymphedema, not elsewhere classified (3) Cellulitis of left lower leg Status: Acute Current Visit: Yes Code(s): L03.116 - Cellulitis of left lower limb (4) CAD (coronary artery disease) Status: Chronic Current Visit: No Code(s): I25.10 - Atherosclerotic heart disease of [place] coronary artery without angina pectoris (5) CKD (chronic kidney disease) stage 3, GFR 30-59 ml/min Status: Chronic Current Visit: No (6) HTN (hypertension) Status: Chronic Current Visit: No Qualifiers: Code(s): I10 - Essential (primary) hypertension (7) Type 2 diabetes mellitus with other circulatory complications Status: Chronic Current Visit: Yes Code(s): E11.59 - Type 2 diabetes mellitus with other circulatory complications (8) PVD (peripheral vascular disease) Status: Acute Current Visit: Yes Code(s): I73.9 - Peripheral vascular disease, unspecified (9) Diminished pulses in lower extremity Status: Acute Current Visit: Yes Code(s): R09.89 - Other specified symptoms and signs involving the circulatory and respiratory systems Type of Wound Date of Service: 01/14/18 Chief Complaint: ulcers on the back of left leg that arent healing History of Wound: This is a 72-year-old white female who presents to the wound healing center today with complaint of nonhealing ulcers on the left posterior lower extremity which has been going on intermittently since 2013. She was recently admitted to [facility] from through 12/27/17 for severe sepsis and cellulitis of the left leg. She was treated with IV antibiotics and sent home on penicillin V potassium 4 times daily for 7 days and was instructed to follow-up with infectious disease and with the wound healing center. She does have a past medical history which is significant for coronary artery disease, paroxysmal atrial fibrillation, type 2 diabetes mellitus, RA,depression, hyperlipidemia, hypertension, CKD, peripheral vascular disease, and chronic lymphedema. Her wound treatments so far has been covering the ulcers with a bandage and KVNG wraps. She does state that the cellulitis has improved and that the pain has improved as well. She denies any discharge or foul-smelling odor from the wound. She did have arterial studies done in November 2015 which demonstrated left TBI of 0.6 and right TBI of 0.34 her vascular study at that time was suggestive of severe distal small vessel arterial occlusive disease in the right lower extremity and moderate distal small vessel arterial occlusive disease in the left lower extremity. She states that her diabetes is typically well controlled and that she has a chronic problem with ulcers in her lower extremities ever since having skin grafts placed in the past. The patient otherwise denies any fever, chills, nausea, vomiting, shortness of breath, chest pain or pressure, palpitations, orthopnea, syncope or presyncopal episodes. Progress of Wound: stable, cellulitis slowly improving, pt just started clindamycin yesterday - Physical Exam Vital Signs Temp Pulse Resp BP 95.8 F L 78 18 147/70 H 01/14/18 14:57 01/14/18 14:57 01/14/18 14:57 01/14/18 14:57 General: Alert, Oriented x3, Cooperative, No apparent distress HEENT: Atraumatic Cardiovascular: Regular rate Extremities: Diminished Peripheral Pulses, Edema Skin: Ulcer/ Wound - Left calf cluster ulcer, ulcerations are dry with slough present, surrounding areas slightly pink however this has decreased from previous week, no exudate or Foul-smelling discharge, no pain or tenderness Wound Measurements and Assessment WC - Nurse 1 - General Ulcer Measurement Start: 01/07/18 12:51 Freq: Status: Active Protocol: Activity Type Activity Date Activity User E-Sign Co-Sign Detail Recorded Client Recorded Date Recorded By Document 01/14/18 14:57 DL [id number] 01/14/18 15:03 DL 01/14/18 14:57 Wound Center Nurse 1 [Ulcer Assessment] #6- LT CALF CLUSTER -Current Size (cm) - Length 5.2 -Current Size (cm) - Width 4.2 -Current Size (cm) - Depth 0.1 -Total Square Cm 21.84 -Photo Taken No -Exudate Amt Medium (34-66%) -Exudate Type Serosanguineous -Wound Margin Distinct, Outline Attached -Granulation Amt Medium (34-66%) -Granulation Quality [place] -Necrosis Amt Medium (34-66%) -Necrotic Tissue Type Adherent Slough -Structure Exposed N/A -Texture (Cassi-wound Skin Appearance) Scarring -Moisture (Cassi-wound Skin Appearance No Abnormality ) -Color (Cassi-wound Skin Appearance) No Abnormality -Temperature (Cassi-wound Skin No Abnormality Appearance) (Pt Warm) -Ulcer Cleansing Rinsed/ Irrigated with Saline -Foul Odor after Cleansing No -Anesthetic Used 4% Lidocaine Solution - Nurse 2 - General Ulcer CM Notes Start: 01/07/18 12:51 Freq: Status: Active Protocol: Activity Type Activity Date Activity User E-Sign Co-Sign Detail Recorded Client Recorded Date Recorded By Document 01/14/18 16:35 [id number] 01/14/18 16:37 01/14/18 16:35 Wound Center Nurse 2 [Procedure/Treatment] -Time 16:35 -Correct Patient Yes -Correct Side, Site, Position Yes -Correct Procedure Yes -Procedure Performed Yes -Type of Procedure Debridement -Clinical Debridement Subcutaneous -Post Debridement Size (cm) - Length 4.0 -Post Debridement Size (cm) - Width 3.0 -Post Debridement Size (cm) - Depth 0.1 -Total Square Cm 12.00 -Wound/Ulcer Outcome Not Healed -Ulcer Cleansing Rinsed/ Irrigated with Saline -Foul Odor after Cleansing No -Bioengineered Tissue No -Bleeding Controlled with NA -Treatment Response Procedure Tolerated Well [See Physician Procedure note for Specifics] Pain Scale: 0-10 Numeric [Pain] -Is Patient Pain Free? Yes Neurological: Neuro grossly intact Psych/Mental Status: Normal Affect, Alert and oriented to time, place, person, mood and affect Debridement Note Post-Debridement Measurements/Treatment - Nurse 2 - General Ulcer CM Notes Start: 01/07/18 12:51 Freq: Status: Active Protocol: Activity Type Activity Date Activity User E-Sign Co-Sign Detail Recorded Client Recorded Date Recorded By Document 01/14/18 16:35 [id number] 01/14/18 16:37 01/14/18 16:35 Wound Center Nurse 2 #6- LT CALF CLUSTER -Time 16:35 -Correct Patient Yes -Correct Side, Site, Position Yes -Correct Procedure Yes -Procedure Performed Yes -Type of Procedure Debridement -Clinical Debridement Subcutaneous -Post Debridement Size (cm) - Length 4.0 -Post Debridement Size (cm) - Width 3.0 -Post Debridement Size (cm) - Depth 0.1 -Total Square Cm 12.00 -Wound/Ulcer Outcome Not Healed -Ulcer Cleansing Rinsed/ Irrigated with Saline -Foul Odor after Cleansing No -Bioengineered Tissue No -Bleeding Controlled with NA -Treatment Response Procedure Tolerated Well Pain Scale: 0-10 Numeric Is Patient Pain Free? Yes Wound debrided: Lower extremity cluster ulcer Laterality: Left Type of Debridement: Excisional debridement Anesthesia Used: 5% Lidocaine Gel Depth: in the subcutaneous layer Percentage of wound debrided: 100 Instrument Used: 5mm curette Tissue Removed: slough and fibrous tissue Severity: Fat Layer Exposed Amount of bleeding with debridement: Mild Bleeding Controlled with: Pressure Patient tolerated procedure well Assessment/Plan Active Problems (Last Updated 11/09/17 @ 12:57 by Rayray Bernal [employer]-C) Nonhealing ulcer of left lower extremity with fat layer exposed (Acute) Lymphedema (Acute) PVD (peripheral vascular disease) (Acute) Diminished pulses in lower extremity (Acute) Cellulitis of left lower leg (Acute) 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 Previous vascular studies reviewed from 2016 and demonstrated arterial occlusive disease. Repeat vascular studies demonstrated TBI right 0.41 and left 0.43, indicative of arterial disease and therefore placed referral to vascular surgeon. Venous studies did demonstrate venous insufficiency. Cultures collected and demonstrated staph aureus which is susceptible to clindamycin, patient started on Clinda 3 times daily for 7 days. Patient's cellulitis seems to be resolving. Blood work ordered and reviewed A1c 6.3 and pre-albumin slightly low, advised to increase protein in the diet. A subcutaneous debridement was performed during today's visit and the patient tolerated this well. Instructed patient to follow-up with infectious disease as she was referred after her hospital stay. Daily dressing changes to include moistened Fibracol and covered with Adaptic and gauze. No compression at this time due to poor arterial status. Did discuss with patient that her chronic wounds may be impaired due to her use of daily prednisone and that she should discuss her options with her city alderman. Discussed with patient the importance of diet and nutrition and wound healing and that she should try to keep her blood sugars under control. Patient verbalized understanding. Discussed with patient red flag symptoms of systemic infection that require urgent medical attention. Patient will otherwise follow-up in the wound center in 1 week. Patient is seeking wound clearance for a bladder mesh surgery from her ENTERTAINMENT MUSICIAN, from a wound standpoint she is stable and cleared. Did recommend that she obtain clearance from her rn discharge and PCP as well. This note was generated with [employer] dictation software. It may contain incorrect words, spelling, and punctuation that were not noted in checking the note before signing. Code Visit 111xxx-113xx: 19839 [place] subq tissue 20 sq cm/<
--- NOTE | 2018-01-15 06:49 | LEAS_ITS ---
Arterial Study - Arterial Study Arterial Study: This is a 72-year-old female with a history of coronary artery disease, chronic kidney disease, hypertension, hyperlipidemia, diabetes mellitus, and peripheral arterial occlusive disease. She was brought to the noninvasive vascular laboratory at this time for the purpose of bilateral noninvasive lower extremity arterial assessment. Doppler signal assessment was used to evaluate the pulses at ankle level bilaterally. The posterior tibial and dorsalis pedis pulses were biphasic bilaterally. Segmental limb pressures were obtained bilaterally. Ankle pressures, as determined by posterior tibial and dorsalis pedis pulses, could not be determined on either side due to the non-compressibility of the vasculature. The right digital pressure was measured at 58 mmHg. The left digital pressure was measured at 61 mmHg. Pulse-volume recordings were obtained bilaterally and segmentally. Waveform amplitudes appeared satisfactory at low thigh, calf, and ankle levels bilaterally. Waveform amplitude was noted to be diminished at digital level on the left. Resting ankle-brachial indices could not be calculated on either side due to the non-compressibility of the vasculature. Digital-brachial indices were calculated bilaterally. The right digital- brachial index was calculated to be 0.41. The left digital-brachial index was calculated to be 0.43. Impression: Based upon the findings of this resting noninvasive lower extremity arterial study, there is evidence of moderate arterial occlusive disease in the lower extremities bilaterally. Biphasic waveforms were noted at ankle level bilaterally. The arterial tree at ankle level was noncompressible bilaterally, likely due to arterial calcification. As a result, resting ankle-brachial indices could not be calculated on either side. Digital-brachial indices are moderately diminished bilaterally, suggesting moderately impaired arterial perfusion at digital level bilaterally. Clinical correlation is advised.
--- NOTE | 2018-01-15 13:35 | PN.PCM_ITS ---
(1) Nonhealing ulcer of left lower extremity with fat layer exposed Status: Acute Current Visit: Yes Code(s): L97.922 - Non-pressure chronic ulcer of unspecified part of left lower leg with fat layer exposed (2) Lymphedema Status: Acute Current Visit: Yes Code(s): I89.0 - Lymphedema, not elsewhere classified (3) Cellulitis of left lower leg Status: Acute Current Visit: Yes Code(s): L03.116 - Cellulitis of left lower limb (4) CAD (coronary artery disease) Status: Chronic Current Visit: No Code(s): I25.10 - Atherosclerotic heart disease of [place] coronary artery without angina pectoris (5) CKD (chronic kidney disease) stage 3, GFR 30-59 ml/min Status: Chronic Current Visit: No (6) HTN (hypertension) Status: Chronic Current Visit: No Qualifiers: Code(s): I10 - Essential (primary) hypertension (7) Type 2 diabetes mellitus with other circulatory complications Status: Chronic Current Visit: Yes Code(s): E11.59 - Type 2 diabetes mellitus with other circulatory complications (8) PVD (peripheral vascular disease) Status: Acute Current Visit: Yes Code(s): I73.9 - Peripheral vascular disease, unspecified (9) Diminished pulses in lower extremity Status: Acute Current Visit: Yes Code(s): R09.89 - Other specified symptoms and signs involving the circulatory and respiratory systems Type of Wound Date of Service: 01/14/18 Chief Complaint: ulcers on the back of left leg that arent healing History of Wound: This is a 72-year-old white female who presents to the wound healing center today with complaint of nonhealing ulcers on the left posterior lower extremity which has been going on intermittently since 2013. She was recently admitted to [facility] from through 12/27/17 for severe sepsis and cellulitis of the left leg. She was treated with IV antibiotics and sent home on penicillin V potassium 4 times daily for 7 days and was instructed to follow-up with infectious disease and with the wound healing center. She does have a past medical history which is significant for coronary artery disease, paroxysmal atrial fibrillation, type 2 diabetes mellitus, RA,depression, hyperlipidemia, hypertension, CKD, peripheral vascular disease, and chronic lymphedema. Her wound treatments so far has been covering the ulcers with a bandage and KVNG wraps. She does state that the cellulitis has improved and that the pain has improved as well. She denies any discharge or foul-smelling odor from the wound. She did have arterial studies done in November 2015 which demonstrated left TBI of 0.6 and right TBI of 0.34 her vascular study at that time was suggestive of severe distal small vessel arterial occlusive disease in the right lower extremity and moderate distal small vessel arterial occlusive disease in the left lower extremity. She states that her diabetes is typically well controlled and that she has a chronic problem with ulcers in her lower extremities ever since having skin grafts placed in the past. The patient otherwise denies any fever, chills, nausea, vomiting, shortness of breath, chest pain or pressure, palpitations, orthopnea, syncope or presyncopal episodes. Progress of Wound: stable, cellulitis slowly improving, pt just started clindamycin yesterday - Physical Exam Vital Signs Temp Pulse Resp BP 95.8 F L 78 18 147/70 H 01/14/18 14:57 01/14/18 14:57 01/14/18 14:57 01/14/18 14:57 General: Alert, Oriented x3, Cooperative, No apparent distress HEENT: Atraumatic Cardiovascular: Regular rate Extremities: Diminished Peripheral Pulses, Edema Skin: Ulcer/ Wound - Left calf cluster ulcer, ulcerations are dry with slough present, surrounding areas slightly pink however this has decreased from previous week, no exudate or Foul-smelling discharge, no pain or tenderness Wound Measurements and Assessment WC - Nurse 1 - General Ulcer Measurement Start: 01/07/18 12:51 Freq: Status: Active Protocol: Activity Type Activity Date Activity User E-Sign Co-Sign Detail Recorded Client Recorded Date Recorded By Document 01/14/18 14:57 DL [id number] 01/14/18 15:03 DL 01/14/18 14:57 Wound Center Nurse 1 [Ulcer Assessment] #6- LT CALF CLUSTER -Current Size (cm) - Length 5.2 -Current Size (cm) - Width 4.2 -Current Size (cm) - Depth 0.1 -Total Square Cm 21.84 -Photo Taken No -Exudate Amt Medium (34-66%) -Exudate Type Serosanguineous -Wound Margin Distinct, Outline Attached -Granulation Amt Medium (34-66%) -Granulation Quality [place] -Necrosis Amt Medium (34-66%) -Necrotic Tissue Type Adherent Slough -Structure Exposed N/A -Texture (Cassi-wound Skin Appearance) Scarring -Moisture (Cassi-wound Skin Appearance No Abnormality ) -Color (Cassi-wound Skin Appearance) No Abnormality -Temperature (Cassi-wound Skin No Abnormality Appearance) (Pt Warm) -Ulcer Cleansing Rinsed/ Irrigated with Saline -Foul Odor after Cleansing No -Anesthetic Used 4% Lidocaine Solution - Nurse 2 - General Ulcer CM Notes Start: 01/07/18 12:51 Freq: Status: Active Protocol: Activity Type Activity Date Activity User E-Sign Co-Sign Detail Recorded Client Recorded Date Recorded By Document 01/14/18 16:35 [id number] 01/14/18 16:37 01/14/18 16:35 Wound Center Nurse 2 [Procedure/Treatment] -Time 16:35 -Correct Patient Yes -Correct Side, Site, Position Yes -Correct Procedure Yes -Procedure Performed Yes -Type of Procedure Debridement -Clinical Debridement Subcutaneous -Post Debridement Size (cm) - Length 4.0 -Post Debridement Size (cm) - Width 3.0 -Post Debridement Size (cm) - Depth 0.1 -Total Square Cm 12.00 -Wound/Ulcer Outcome Not Healed -Ulcer Cleansing Rinsed/ Irrigated with Saline -Foul Odor after Cleansing No -Bioengineered Tissue No -Bleeding Controlled with NA -Treatment Response Procedure Tolerated Well [See Physician Procedure note for Specifics] Pain Scale: 0-10 Numeric [Pain] -Is Patient Pain Free? Yes Neurological: Neuro grossly intact Psych/Mental Status: Normal Affect, Alert and oriented to time, place, person, mood and affect Debridement Note Post-Debridement Measurements/Treatment - Nurse 2 - General Ulcer CM Notes Start: 01/07/18 12:51 Freq: Status: Active Protocol: Activity Type Activity Date Activity User E-Sign Co-Sign Detail Recorded Client Recorded Date Recorded By Document 01/14/18 16:35 [id number] 01/14/18 16:37 01/14/18 16:35 Wound Center Nurse 2 #6- LT CALF CLUSTER -Time 16:35 -Correct Patient Yes -Correct Side, Site, Position Yes -Correct Procedure Yes -Procedure Performed Yes -Type of Procedure Debridement -Clinical Debridement Subcutaneous -Post Debridement Size (cm) - Length 4.0 -Post Debridement Size (cm) - Width 3.0 -Post Debridement Size (cm) - Depth 0.1 -Total Square Cm 12.00 -Wound/Ulcer Outcome Not Healed -Ulcer Cleansing Rinsed/ Irrigated with Saline -Foul Odor after Cleansing No -Bioengineered Tissue No -Bleeding Controlled with NA -Treatment Response Procedure Tolerated Well Pain Scale: 0-10 Numeric Is Patient Pain Free? Yes Wound debrided: Lower extremity cluster ulcer Laterality: Left Type of Debridement: Excisional debridement Anesthesia Used: 5% Lidocaine Gel Depth: in the subcutaneous layer Percentage of wound debrided: 100 Instrument Used: 5mm curette Tissue Removed: slough and fibrous tissue Severity: Fat Layer Exposed Amount of bleeding with debridement: Mild Bleeding Controlled with: Pressure Patient tolerated procedure well Assessment/Plan Active Problems (Last Updated 11/09/17 @ 12:57 by Rayray Bernal FURNITURE CRATER-C) Nonhealing ulcer of left lower extremity with fat layer exposed (Acute) Lymphedema (Acute) PVD (peripheral vascular disease) (Acute) Diminished pulses in lower extremity (Acute) Cellulitis of left lower leg (Acute) 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 Previous vascular studies reviewed from 2016 and demonstrated arterial occlusive disease. Repeat vascular studies demonstrated TBI right 0.41 and left 0.43, indicative of arterial disease and therefore placed referral to vascular surgeon. Venous studies did demonstrate venous insufficiency. Cultures collected and demonstrated staph aureus which is susceptible to clindamycin, patient started on Clinda 3 times daily for 7 days. Patient's cellulitis seems to be resolving. Blood work ordered and reviewed A1c 6.3 and pre-albumin slightly low, advised to increase protein in the diet. A subcutaneous debridement was performed during today's visit and the patient tolerated this well. Instructed patient to follow-up with infectious disease as she was referred after her hospital stay. Daily dressing changes to include moistened Fibracol and covered with Adaptic and gauze. No compression at this time due to poor arterial status. Did discuss with patient that her chronic wounds may be impaired due to her use of daily prednisone and that she should discuss her options with her woodworking machine offbearer. Discussed with patient the importance of diet and nutrition and wound healing and that she should try to keep her blood sugars under control. Patient verbalized understanding. Discussed with patient red flag symptoms of systemic infection that require urgent medical attention. Patient will otherwise follow-up in the wound center in 1 week. Patient is seeking wound clearance for a bladder mesh surgery from her CONCRETE PILE DRIVER OPERATOR, from a wound standpoint she is stable and cleared. Did recommend that she obtain clearance from her senior quality technician and PCP as well. This note was generated with [employer] dictation software. It may contain incorrect words, spelling, and punctuation that were not noted in checking the note before signing. Code Visit 111xxx-113xx: 98303 [place] subq tissue 20 sq cm/<
[2018-01-21 15:29] VITALS: BP 147/70; PULSE 80; RESP 16; TEMP 37; BMI 36.6
--- NOTE | 2018-01-27 09:02 | PCM.WC.PN ---
(1) Nonhealing ulcer of left lower extremity with fat layer exposed Status: Acute Current Visit: Yes Code(s): L97.922 - Non-pressure chronic ulcer of unspecified part of left lower leg with fat layer exposed (2) Lymphedema Status: Acute Current Visit: Yes Code(s): I89.0 - Lymphedema, not elsewhere classified (3) Cellulitis of left lower leg Status: Acute Current Visit: Yes Code(s): L03.116 - Cellulitis of left lower limb (4) CAD (coronary artery disease) Status: Chronic Current Visit: No Qualifiers: Coronary Disease-Associated Artery/Lesion type: [place] artery [place] vs. transplanted heart: [place] heart Associated angina: without angina Qualified Code(s): I25.10 - Atherosclerotic heart disease of [place] coronary artery without angina pectoris Code(s): I25.10 - Atherosclerotic heart disease of [place] coronary artery without angina pectoris (5) CKD (chronic kidney disease) stage 3, GFR 30-59 ml/min Status: Chronic Current Visit: No (6) HTN (hypertension) Status: Chronic Current Visit: No Qualifiers: Hypertension type: essential hypertension Qualified Code(s): I10 - Essential (primary) hypertension Code(s): I10 - Essential (primary) hypertension (7) Type 2 diabetes mellitus with other circulatory complications Status: Chronic Current Visit: Yes Code(s): E11.59 - Type 2 diabetes mellitus with other circulatory complications (8) PVD (peripheral vascular disease) Status: Acute Current Visit: Yes Code(s): I73.9 - Peripheral vascular disease, unspecified (9) Diminished pulses in lower extremity Status: Acute Current Visit: Yes Code(s): R09.89 - Other specified symptoms and signs involving the circulatory and respiratory systems Type of Wound Date of Service: 01/21/18 Chief Complaint: ulcers on the back of left leg that arent healing History of Wound: This is a 72-year-old white female who presents to the wound healing center today with complaint of nonhealing ulcers on the left posterior lower extremity which has been going on intermittently since 2013. She was recently admitted to [facility] from through 12/27/17 for severe sepsis and cellulitis of the left leg. She was treated with IV antibiotics and sent home on penicillin V potassium 4 times daily for 7 days and was instructed to follow-up with infectious disease and with the wound healing center. She does have a past medical history which is significant for coronary artery disease, paroxysmal atrial fibrillation, type 2 diabetes mellitus, RA,depression, hyperlipidemia, hypertension, CKD, peripheral vascular disease, and chronic lymphedema. Her wound treatments so far has been covering the ulcers with a bandage and KVNG wraps. She does state that the cellulitis has improved and that the pain has improved as well. She denies any discharge or foul-smelling odor from the wound. She did have arterial studies done in November 2015 which demonstrated left TBI of 0.6 and right TBI of 0.34 her vascular study at that time was suggestive of severe distal small vessel arterial occlusive disease in the right lower extremity and moderate distal small vessel arterial occlusive disease in the left lower extremity. She states that her diabetes is typically well controlled and that she has a chronic problem with ulcers in her lower extremities ever since having skin grafts placed in the past. The patient otherwise denies any fever, chills, nausea, vomiting, shortness of breath, chest pain or pressure, palpitations, orthopnea, syncope or presyncopal episodes. Progress of Wound: stable, cellulitis resolved, slow wound healing - Physical Exam Vital Signs Temp Pulse Resp BP 98.6 F 80 16 147/70 H 01/21/18 15:29 01/21/18 15:29 01/21/18 15:29 01/21/18 15:29 General: Alert, Oriented x3, Cooperative, No apparent distress HEENT: Atraumatic Cardiovascular: Regular rate Extremities: No clubbing, No cyanosis, Diminished Peripheral Pulses, Edema - BLLE generalized edema Skin: Ulcer/ Wound - Cluster arterial ulcer present left lower extremity calf, ulceration is dry and desiccated with slough present, no redness warmth or foul smelling exudate present, no pain present Debridement Note Post-Debridement Measurements/Treatment WC - Nurse 2 - General Ulcer CM Notes Start: 01/07/18 12:51 Freq: Status: Active Protocol: Activity Type Activity Date Activity User E-Sign Co-Sign Detail Recorded Client Recorded Date Recorded By Document 01/14/18 16:35 JS [id number] 01/14/18 16:37 JS Document 01/21/18 16:16 DV [id number] 01/21/18 16:18 DV 01/14/18 01/21/18 16:35 16:16 Wound Center Nurse 2 #6- LT CALF CLUSTER -Time 16:35 16:16 -Correct Patient Yes Yes -Correct Side, Site, Position Yes Yes -Correct Procedure Yes Yes -Procedure Performed Yes Yes -Type of Procedure Debridement Debridement -Clinical Debridement Subcutaneous Subcutaneous -Post Debridement Size (cm) - Length 4.0 4.4 -Post Debridement Size (cm) - Width 3.0 2.1 -Post Debridement Size (cm) - Depth 0.1 0.2 -Total Square Cm 12.00 9.24 -Wound/Ulcer Outcome Not Healed Not Healed -Ulcer Cleansing Rinsed/ Rinsed/ Irrigated with Irrigated with Saline Saline -Foul Odor after Cleansing No No -Bioengineered Tissue No No -Bleeding Controlled with NA Pressure -Treatment Response Procedure Procedure Tolerated Well Tolerated Well Pain Scale: 0-10 Numeric Is Patient Pain Free? Yes Yes Wound debrided: Left lower extremity cluster arterial ulcer Laterality: Left Type of Debridement: Excisional debridement Anesthesia Used: 4% Lidocaine Solution Depth: in the subcutaneous layer Percentage of wound debrided: 100 Instrument Used: 5mm curette Tissue Removed: Slough and devitalized tissue Severity: Fat Layer Exposed Amount of bleeding with debridement: Mild Bleeding Controlled with: Pressure Patient tolerated procedure well Assessment/Plan Active Problems (Last Updated 01/18/18 @ 11:46 by MISTY Suh) Nonhealing ulcer of left lower extremity with fat layer exposed (Acute) Lymphedema (Acute) PVD (peripheral vascular disease) (Acute) Diminished pulses in lower extremity (Acute) Cellulitis of left lower leg (Acute) 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 Previous vascular studies reviewed from 2016 and demonstrated arterial occlusive disease. Repeat vascular studies demonstrated TBI right 0.41 and left 0.43, indicative of arterial disease and therefore placed referral to vascular surgeon. Venous studies did demonstrate venous insufficiency. Cultures collected and demonstrated staph aureus which is susceptible to clindamycin, patient started on Clinda 3 times daily for 7 days and completed this. Patient's cellulitis is resolved. Blood work ordered and reviewed A1c 6.3 and pre-albumin slightly low, advised to increase protein in the diet. A subcutaneous debridement was performed during today's visit and the patient tolerated this well. Instructed patient to follow-up with infectious disease as she was referred after her hospital stay. Daily dressing changes to include a thin application of hydrogel with moistened Fibracol and covered with Adaptic and gauze. No compression at this time due to poor arterial status. Did discuss with patient that her chronic wounds may be impaired due to her use of daily prednisone and that she should discuss her options with her corrugator operator, which she saw and did not feel a change in meds was appropriate. Discussed with patient the importance of diet and nutrition and wound healing and that she should try to keep her blood sugars under control. Patient verbalized understanding. Discussed with patient red flag symptoms of systemic infection that require urgent medical attention. Patient will otherwise follow-up in the wound center in 1 week. Patient is seeking wound clearance for a bladder mesh surgery from her HOTEL ROOM ATTENDANT, from a wound standpoint she is stable and cleared. Did recommend that she obtain clearance from her engineer specialist and PCP as well. Will apply for the potential use of Epifix and puraply in the future. This note was generated with [employer] dictation software. It may contain incorrect words, spelling, and punctuation that were not noted in checking the note before signing. Code Visit 111xxx-113xx: 87109 [place] subq tissue 20 sq cm/<
--- NOTE | 2018-01-27 09:12 | PN.PCM_ITS ---
(1) Nonhealing ulcer of left lower extremity with fat layer exposed Status: Acute Current Visit: Yes Code(s): L97.922 - Non-pressure chronic ulcer of unspecified part of left lower leg with fat layer exposed (2) Lymphedema Status: Acute Current Visit: Yes Code(s): I89.0 - Lymphedema, not elsewhere classified (3) Cellulitis of left lower leg Status: Acute Current Visit: Yes Code(s): L03.116 - Cellulitis of left lower limb (4) CAD (coronary artery disease) Status: Chronic Current Visit: No Qualifiers: Coronary Disease-Associated Artery/Lesion type: [place] artery [place] vs. transplanted heart: [place] heart Associated angina: without angina Qualified Code(s): I25.10 - Atherosclerotic heart disease of [place] coronary artery without angina pectoris Code(s): I25.10 - Atherosclerotic heart disease of [place] coronary artery without angina pectoris (5) CKD (chronic kidney disease) stage 3, GFR 30-59 ml/min Status: Chronic Current Visit: No (6) HTN (hypertension) Status: Chronic Current Visit: No Qualifiers: Hypertension type: essential hypertension Qualified Code(s): I10 - Essential (primary) hypertension Code(s): I10 - Essential (primary) hypertension (7) Type 2 diabetes mellitus with other circulatory complications Status: Chronic Current Visit: Yes Code(s): E11.59 - Type 2 diabetes mellitus with other circulatory complications (8) PVD (peripheral vascular disease) Status: Acute Current Visit: Yes Code(s): I73.9 - Peripheral vascular disease, unspecified (9) Diminished pulses in lower extremity Status: Acute Current Visit: Yes Code(s): R09.89 - Other specified symptoms and signs involving the circulatory and respiratory systems Type of Wound Date of Service: 01/21/18 Chief Complaint: ulcers on the back of left leg that arent healing History of Wound: This is a 72-year-old white female who presents to the wound healing center today with complaint of nonhealing ulcers on the left posterior lower extremity which has been going on intermittently since 2013. She was recently admitted to [facility] from through 12/27/17 for severe sepsis and cellulitis of the left leg. She was treated with IV antibiotics and sent home on penicillin V potassium 4 times daily for 7 days and was instructed to follow-up with infectious disease and with the wound healing center. She does have a past medical history which is significant for coronary artery disease, paroxysmal atrial fibrillation, type 2 diabetes mellitus, RA,depression, hyperlipidemia, hypertension, CKD, peripheral vascular disease, and chronic lymphedema. Her wound treatments so far has been covering the ulcers with a bandage and KVNG wraps. She does state that the cellulitis has improved and that the pain has improved as well. She denies any discharge or foul-smelling odor from the wound. She did have arterial studies done in November 2015 which demonstrated left TBI of 0.6 and right TBI of 0.34 her vascular study at that time was suggestive of severe distal small vessel arterial occlusive disease in the right lower extremity and moderate distal small vessel arterial occlusive disease in the left lower extremity. She states that her diabetes is typically well controlled and that she has a chronic problem with ulcers in her lower extremities ever since having skin grafts placed in the past. The patient otherwise denies any fever, chills, nausea, vomiting, shortness of breath, chest pain or pressure, palpitations, orthopnea, syncope or presyncopal episodes. Progress of Wound: stable, cellulitis resolved, slow wound healing - Physical Exam Vital Signs Temp Pulse Resp BP 98.6 F 80 16 147/70 H 01/21/18 15:29 01/21/18 15:29 01/21/18 15:29 01/21/18 15:29 General: Alert, Oriented x3, Cooperative, No apparent distress HEENT: Atraumatic Cardiovascular: Regular rate Extremities: No clubbing, No cyanosis, Diminished Peripheral Pulses, Edema - BLLE generalized edema Skin: Ulcer/ Wound - Cluster arterial ulcer present left lower extremity calf, ulceration is dry and desiccated with slough present, no redness warmth or foul smelling exudate present, no pain present Debridement Note Post-Debridement Measurements/Treatment WC - Nurse 2 - General Ulcer CM Notes Start: 01/07/18 12:51 Freq: Status: Active Protocol: Activity Type Activity Date Activity User E-Sign Co-Sign Detail Recorded Client Recorded Date Recorded By Document 01/14/18 16:35 JS [id number] 01/14/18 16:37 JS Document 01/21/18 16:16 DV [id number] 01/21/18 16:18 DV 01/14/18 01/21/18 16:35 16:16 Wound Center Nurse 2 #6- LT CALF CLUSTER -Time 16:35 16:16 -Correct Patient Yes Yes -Correct Side, Site, Position Yes Yes -Correct Procedure Yes Yes -Procedure Performed Yes Yes -Type of Procedure Debridement Debridement -Clinical Debridement Subcutaneous Subcutaneous -Post Debridement Size (cm) - Length 4.0 4.4 -Post Debridement Size (cm) - Width 3.0 2.1 -Post Debridement Size (cm) - Depth 0.1 0.2 -Total Square Cm 12.00 9.24 -Wound/Ulcer Outcome Not Healed Not Healed -Ulcer Cleansing Rinsed/ Rinsed/ Irrigated with Irrigated with Saline Saline -Foul Odor after Cleansing No No -Bioengineered Tissue No No -Bleeding Controlled with NA Pressure -Treatment Response Procedure Procedure Tolerated Well Tolerated Well Pain Scale: 0-10 Numeric Is Patient Pain Free? Yes Yes Wound debrided: Left lower extremity cluster arterial ulcer Laterality: Left Type of Debridement: Excisional debridement Anesthesia Used: 4% Lidocaine Solution Depth: in the subcutaneous layer Percentage of wound debrided: 100 Instrument Used: 5mm curette Tissue Removed: Slough and devitalized tissue Severity: Fat Layer Exposed Amount of bleeding with debridement: Mild Bleeding Controlled with: Pressure Patient tolerated procedure well Assessment/Plan Active Problems (Last Updated 01/18/18 @ 11:46 by MISTY Suh) Nonhealing ulcer of left lower extremity with fat layer exposed (Acute) Lymphedema (Acute) PVD (peripheral vascular disease) (Acute) Diminished pulses in lower extremity (Acute) Cellulitis of left lower leg (Acute) 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 Previous vascular studies reviewed from 2016 and demonstrated arterial occlusive disease. Repeat vascular studies demonstrated TBI right 0.41 and left 0.43, indicative of arterial disease and therefore placed referral to vascular surgeon. Venous studies did demonstrate venous insufficiency. Cultures collected and demonstrated staph aureus which is susceptible to clindamycin, patient started on Clinda 3 times daily for 7 days and completed this. Patient' s cellulitis is resolved. Blood work ordered and reviewed A1c 6.3 and pre- albumin slightly low, advised to increase protein in the diet. A subcutaneous debridement was performed during today's visit and the patient tolerated this well. Instructed patient to follow-up with infectious disease as she was referred after her hospital stay. Daily dressing changes to include a thin application of hydrogel with moistened Fibracol and covered with Adaptic and gauze. No compression at this time due to poor arterial status. Did discuss with patient that her chronic wounds may be impaired due to her use of daily prednisone and that she should discuss her options with her aircraft maintenance engineer, which she saw and did not feel a change in meds was appropriate. Discussed with patient the importance of diet and nutrition and wound healing and that she should try to keep her blood sugars under control. Patient verbalized understanding. Discussed with patient red flag symptoms of systemic infection that require urgent medical attention. Patient will otherwise follow-up in the wound center in 1 week. Patient is seeking wound clearance for a bladder mesh surgery from her EXPANSION JOINT FINISHER, from a wound standpoint she is stable and cleared. Did recommend that she obtain clearance from her superintendent greens and PCP as well. Will apply for the potential use of Epifix and puraply in the future. This note was generated with Live[employer] dictation software. It may contain incorrect words, spelling, and punctuation that were not noted in checking the note before signing. Code Visit [id number]: [id number] Galina subq tissue 20 sq cm/<
[2018-01-27 10:39] VITALS: BP 104/68; PULSE 82; RESP 18; TEMP 35.7; BMI 36.6
--- NOTE | 2018-01-27 12:23 | CON.PCM_ITS ---
Problem List (1) Cellulitis of leg without foot, left Status: Acute Reason for Consult: cellulitis Consulted by: Sonja Feliciano History of Present Illness: The patient is a 72 year old F with PAD and chronic leg ulcer who has been dealing with L calf ulcer since 2013. Has had skin grafts and multiple courses of abx in the meantime. Admitted to [facility] in November with sepsis. Wound cx with MSSA and strep, given course of po PCN at discharge. Leg did not improve much, established at wound center. Cx repeated, grew mSSA again. Had some mild redness and drainage. Given course of clinda, now stable off of abx with no pain/drainage. No fever, no n/v/d. Pt interested in bladder suspension surgery. Full ROS performed and neg except as noted above. 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) Allergies/Adverse Reactions: Allergies cefepime HCl [From Maxipime] Allergy (Verified 01/15/18 23:04) Itching cephalexin monohydrate [From Keflex] Allergy (Verified 01/15/18 23:04) Hives clopidogrel [From Plavix] Allergy (Verified 01/15/18 23:04) Itching and hives all over hydromorphone HCl [From Dilaudid] Adverse Reaction (Verified 01/15/18 23:04) Itching Home Medications: Ambulatory Orders Medication Instructions Recorded Ergocalciferol [Vitamin D] 50,000 unit PO WESA 12/19/14 PredniSONE 5 mg PO DAILY 12/19/14 Allopurinol [Zyloprim] 300 mg PO DAILYCM 01/23/15 Metoprolol Tartrate [Lopressor 50 mg PO BID 12/03/16 (beta reid)] Simvastatin [Zocor] 40 mg PO QHS 12/03/16 Aspirin E.C. [Ecotrin] 81 mg PO DAILY@0800 #30 tab 12/05/16 Hydroxychloroquine [Plaquenil] 200 mg PO DAILYCM 12/25/17 Metformin HCl 500 mg PO BID 12/25/17 Insulin Glargine,Hum.rec.anlog 10 unit 01/07/18 [Lantus] Tramadol HCl [Ultram] 50 mg PO PRN PRN 01/07/18 - Social History SMOKING STATUS:: Never smoker Vital Signs Temp Pulse Resp BP 96.3 F L 82 18 104/68 01/27/18 10:39 01/27/18 10:39 01/27/18 10:39 01/27/18 10:39 Oxygen Delivery Method Room Air Weight: 90.718 kg Body Mass Index (BMI) 36.6 Finger Stick Blood Glucose 139 - Other Studies Radiology: [] reviewed Other Studies: [] Route of nutrition/ use of supplements: [] Nutritional Intake: [] IV Site: [] Dyer Catheter: [] - Physical Exam General: Alert, Oriented x3, Cooperative, No apparent distress HEENT: Atraumatic, PERRLA, EOMI Neck: Supple, No Nodes Lungs: Clear to auscultation, Normal air movement Cardiovascular: Regular rate, Regular Rhythm, No murmurs Abdomen: Bowel Sounds Present, Soft, Non Tender, Non-Distended Extremities: Diminished Peripheral Pulses Skin: Ulcer/ Wound - Bilat calf ulcers, minimal redness, no drainage Musculoskeletal: No Tenderness to Palpation of Joints or Extremities Neurological: Cranial nerves II-XII grossly intact - Assessment/Plan Antibiotics: [] Assessment/Plan: [] Active and Suspected Problems (Last Updated 01/18/18 @ 11:46 by MISTY Suh) Nonhealing ulcer of left lower extremity with fat layer exposed (Acute) Lymphedema (Acute) PVD (peripheral vascular disease) (Acute) Diminished pulses in lower extremity (Acute) Cellulitis of left lower leg (Acute) Chronic LLE ulcer with recent MSSA infection - Of note, MSSA was resistant to the PCN she was given at discharge from recent hospital stay, so that likely explains her lack of improvement. Now s/p course of clindamycin, leg appears to be doing well. No need for further abx at this point. Ok to proceed with bladder surgery from my perspective. Thank you for this consultation, will be happy to see her as needed. Discussed with wound care team. Will send letter to PCP Sonja Feliciano.
== END 2018-01-27 23:59 ==
LOC: WC 10:15
PROVIDERS: Family Provider Nurse Practitioner; PCP Nurse Practitioner; Visit Provider Nurse Practitioner Family
DX: E11.622 Type 2 diabetes mellitus with other skin ulcer (principal); I89.0 Lymphedema, not elsewhere classified; L03.116 Cellulitis of left lower limb; I25.10 Atherosclerotic heart disease of native coronary artery without angina pectoris; E11.22 Type 2 diabetes mellitus with diabetic chronic kidney disease; I12.9 Hypertensive chronic kidney disease with stage 1 through stage 4 chronic kidney disease, or unspecified chronic kidney disease; N18.3 Chronic kidney disease, stage 3 (moderate); E11.51 Type 2 diabetes mellitus with diabetic peripheral angiopathy without gangrene; R09.89 Other specified symptoms and signs involving the circulatory and respiratory systems; I83.022 Varicose veins of left lower extremity with ulcer of calf; L97.222 Non-pressure chronic ulcer of left calf with fat layer exposed; E66.9 Obesity, unspecified; Z68.36 Body mass index [BMI] 36.0-36.9, adult; Z71.3 Dietary counseling and surveillance; Z79.899 Other long term (current) drug therapy; Z79.4 Long term (current) use of insulin; Z79.82 Long term (current) use of aspirin; B95.5 Unspecified streptococcus as the cause of diseases classified elsewhere; B95.61 Methicillin susceptible Staphylococcus aureus infection as the cause of diseases classified elsewhere
CPT/HCPCS: 11042; 11045; 80053; 83036; 84134; 85025; 85652; 87070; 87075; 87077; 87186; 87205; 93923; 93970; 99212; 99213; G0463

== ENCOUNTER 2018-02-18 14:30 | Outpatient (RCR) | payer MEDICARE, SELFPAY ==
[2016-12-05 15:47] VITALS: BMI 35.6
[2018-01-28 01:07] VITALS: BP 141/74; PULSE 82; RESP 18; TEMP 35.7; BMI 36.6
--- NOTE | 2018-02-04 16:32 | PCM.WC.PN ---
(1) Nonhealing ulcer of left lower extremity with fat layer exposed Status: Acute Current Visit: Yes Code(s): L97.922 - Non-pressure chronic ulcer of unspecified part of left lower leg with fat layer exposed (2) Diminished pulses in lower extremity Status: Acute Current Visit: Yes Code(s): R09.89 - Other specified symptoms and signs involving the circulatory and respiratory systems (3) Lymphedema Status: Acute Current Visit: Yes Code(s): I89.0 - Lymphedema, not elsewhere classified (4) PVD (peripheral vascular disease) Status: Acute Current Visit: Yes Code(s): I73.9 - Peripheral vascular disease, unspecified (5) DM2 (diabetes mellitus, type 2) Status: Chronic Current Visit: Yes Qualifiers: Code(s): E11.9 - Type 2 diabetes mellitus without complications (6) HTN (hypertension) Status: Chronic Current Visit: Yes Qualifiers: Code(s): I10 - Essential (primary) hypertension (7) Obesity (BMI 35.0-39.9 without comorbidity) Status: Chronic Current Visit: Yes Code(s): E66.9 - Obesity, unspecified Type of Wound Date of Service: 02/04/18 Chief Complaint: ulcers on the back of left leg that arent healing History of Wound: This is a 72-year-old white female who presents to the wound healing center today with complaint of nonhealing ulcers on the left posterior lower extremity which has been going on intermittently since 2013. She was recently admitted to [facility] from through 12/27/17 for severe sepsis and cellulitis of the left leg. She was treated with IV antibiotics and sent home on penicillin V potassium 4 times daily for 7 days and was instructed to follow-up with infectious disease and with the wound healing center. She does have a past medical history which is significant for coronary artery disease, paroxysmal atrial fibrillation, type 2 diabetes mellitus, RA,depression, hyperlipidemia, hypertension, CKD, peripheral vascular disease, and chronic lymphedema. Her wound treatments so far has been covering the ulcers with a bandage and KVNG wraps. She does state that the cellulitis has improved and that the pain has improved as well. She denies any discharge or foul-smelling odor from the wound. She did have arterial studies done in November 2015 which demonstrated left TBI of 0.6 and right TBI of 0.34 her vascular study at that time was suggestive of severe distal small vessel arterial occlusive disease in the right lower extremity and moderate distal small vessel arterial occlusive disease in the left lower extremity. She states that her diabetes is typically well controlled and that she has a chronic problem with ulcers in her lower extremities ever since having skin grafts placed in the past. The patient otherwise denies any fever, chills, nausea, vomiting, shortness of breath, chest pain or pressure, palpitations, orthopnea, syncope or presyncopal episodes. Progress of Wound: stable, slow wound healing becoming more superficial - Physical Exam Vital Signs Temp Pulse Resp BP 96.3 F L 82 18 141/74 H 01/28/18 01:07 01/28/18 01:07 01/28/18 01:07 01/28/18 01:07 General: Alert, Oriented x3, Cooperative, No apparent distress HEENT: Atraumatic Cardiovascular: Regular rate Extremities: Diminished Peripheral Pulses, Edema - Generalized bilateral lower extremity edema Skin: Ulcer/ Wound - Cluster ulcer present left posterior lower extremity, wound bed is moist and moderate amount of slough present Wound Measurements and Assessment WC - Nurse 2 - General Ulcer CM Notes Start: 02/04/18 16:33 Freq: Status: Active Protocol: Activity Type Activity Date Activity User E-Sign Co-Sign Detail Recorded Client Recorded Date Recorded By Document 02/04/18 17:25 DV [id number] 02/04/18 17:27 DV 02/04/18 17:25 Wound Center Nurse 2 [Procedure/Treatment] #6- LT CALF CLUSTER -Time 17:26 -Correct Patient Yes -Correct Side, Site, Position Yes -Correct Procedure Yes -Procedure Performed Yes -Type of Procedure Debridement -Clinical Debridement Subcutaneous -Post Debridement Size (cm) - Length 4.5 -Post Debridement Size (cm) - Width 5.5 -Post Debridement Size (cm) - Depth 0.1 -Total Square Cm 24.75 -Wound/Ulcer Outcome Not Healed -Ulcer Cleansing Rinsed/ Irrigated with Saline -Foul Odor after Cleansing No -Bioengineered Tissue No -Bleeding Controlled with Pressure -Treatment Response Procedure Tolerated Well [See Physician Procedure note for Specifics] Pain Scale: 0-10 Numeric [Pain] -Is Patient Pain Free? Yes Neurological: Cranial nerves II-XII grossly intact Psych/Mental Status: Normal Affect, Alert and oriented to time, place, person, mood and affect Debridement Note Post-Debridement Measurements/Treatment WC - Nurse 2 - General Ulcer CM Notes Start: 02/04/18 16:33 Freq: Status: Active Protocol: Activity Type Activity Date Activity User E-Sign Co-Sign Detail Recorded Client Recorded Date Recorded By Document 02/04/18 17:25 DV [id number] 02/04/18 17:27 DV 02/04/18 17:25 Wound Center Nurse 2 #6- LT CALF CLUSTER -Time 17:26 -Correct Patient Yes -Correct Side, Site, Position Yes -Correct Procedure Yes -Procedure Performed Yes -Type of Procedure Debridement -Clinical Debridement Subcutaneous -Post Debridement Size (cm) - Length 4.5 -Post Debridement Size (cm) - Width 5.5 -Post Debridement Size (cm) - Depth 0.1 -Total Square Cm 24.75 -Wound/Ulcer Outcome Not Healed -Ulcer Cleansing Rinsed/ Irrigated with Saline -Foul Odor after Cleansing No -Bioengineered Tissue No -Bleeding Controlled with Pressure -Treatment Response Procedure Tolerated Well Pain Scale: 0-10 Numeric Is Patient Pain Free? Yes Wound debrided: Nonhealing ulcer left posterior lower extremity Laterality: Left Type of Debridement: Excisional debridement Anesthesia Used: 5% Lidocaine Gel Depth: in the subcutaneous layer Percentage of wound debrided: 100 Instrument Used: 5mm curette Tissue Removed: Slough and fibrous tissue Severity: Fat Layer Exposed Amount of bleeding with debridement: Mild Bleeding Controlled with: Pressure Patient tolerated procedure well Assessment/Plan Active Problems (Last Updated 01/18/18 @ 11:46 by MISTY Suh) Nonhealing ulcer of left lower extremity with fat layer exposed (Acute) Lymphedema (Acute) PVD (peripheral vascular disease) (Acute) Diminished pulses in lower extremity (Acute) DM2 (diabetes mellitus, type 2) (Chronic) HTN (hypertension) (Chronic) Obesity (BMI 35.0-39.9 without comorbidity) (Chronic) Assessment: Nonhealing ulcer left lower extremity, wound is becoming more superficial wound bed appears moist where was previously desiccated Plan: The patient was seen and evaluated at the wound healing center today and updated on her plan of care. 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 Previous vascular studies reviewed from 2016 and demonstrated arterial occlusive disease. Repeat vascular studies demonstrated TBI right 0.41 and left 0.43, indicative of arterial disease and therefore placed referral to vascular surgeon Dr. Herring to discuss possible vascular intervention. Venous studies did demonstrate venous insufficiency. Cultures collected and demonstrated staph aureus which is susceptible to clindamycin, patient started on Clinda 3 times daily for 7 days and completed this. Patient's cellulitis is resolved. Blood work ordered and reviewed A1c 6.3 and pre-albumin slightly low, advised to increase protein in the diet. A subcutaneous debridement was performed during today's visit and the patient tolerated this well. I patient did follow-up with infectious disease as she was referred after her hospital stay who stated that she did not require any antibiotics additionally at this time. Daily dressing changes to include a thin application of hydrogel with moistened Fibracol and covered with gauze. No compression at this time due to poor arterial status. Did discuss with patient that her chronic wounds may be impaired due to her use of daily prednisone and that she should discuss her options with her manifest clerk, which she saw and did not feel a change in meds was appropriate. Discussed with patient the importance of diet and nutrition and wound healing and that she should try to keep her blood sugars under control. Patient verbalized understanding. Discussed with patient red flag symptoms of systemic infection that require urgent medical attention. Patient will otherwise follow-up in the wound center in 1 week. Patient is seeking wound clearance for a bladder mesh surgery from her ETHICS INSTRUCTOR, from a wound standpoint she is stable and cleared. Did recommend that she obtain clearance from her singing teacher and PCP as well. Will apply for the potential use of Epifix and puraply in the future. This note was generated with rapt[employer]fm dictation software. It may contain incorrect words, spelling, and punctuation that were not noted in checking the note before signing. Code Visit 111xxx-113xx: [id number] Galina subq tissue 20 sq cm/<
--- NOTE | 2018-02-05 16:40 | PN.PCM_ITS ---
(1) Nonhealing ulcer of left lower extremity with fat layer exposed Status: Acute Current Visit: Yes Code(s): L97.922 - Non-pressure chronic ulcer of unspecified part of left lower leg with fat layer exposed (2) Diminished pulses in lower extremity Status: Acute Current Visit: Yes Code(s): R09.89 - Other specified symptoms and signs involving the circulatory and respiratory systems (3) Lymphedema Status: Acute Current Visit: Yes Code(s): I89.0 - Lymphedema, not elsewhere classified (4) PVD (peripheral vascular disease) Status: Acute Current Visit: Yes Code(s): I73.9 - Peripheral vascular disease, unspecified (5) DM2 (diabetes mellitus, type 2) Status: Chronic Current Visit: Yes Qualifiers: Code(s): E11.9 - Type 2 diabetes mellitus without complications (6) HTN (hypertension) Status: Chronic Current Visit: Yes Qualifiers: Code(s): I10 - Essential (primary) hypertension (7) Obesity (BMI 35.0-39.9 without comorbidity) Status: Chronic Current Visit: Yes Code(s): E66.9 - Obesity, unspecified Type of Wound Date of Service: 02/04/18 Chief Complaint: ulcers on the back of left leg that arent healing History of Wound: This is a 72-year-old white female who presents to the wound healing center today with complaint of nonhealing ulcers on the left posterior lower extremity which has been going on intermittently since 2013. She was recently admitted to [facility] from through 12/27/17 for severe sepsis and cellulitis of the left leg. She was treated with IV antibiotics and sent home on penicillin V potassium 4 times daily for 7 days and was instructed to follow-up with infectious disease and with the wound healing center. She does have a past medical history which is significant for coronary artery disease, paroxysmal atrial fibrillation, type 2 diabetes mellitus, RA,depression, hyperlipidemia, hypertension, CKD, peripheral vascular disease, and chronic lymphedema. Her wound treatments so far has been covering the ulcers with a bandage and KVNG wraps. She does state that the cellulitis has improved and that the pain has improved as well. She denies any discharge or foul-smelling odor from the wound. She did have arterial studies done in November 2015 which demonstrated left TBI of 0.6 and right TBI of 0.34 her vascular study at that time was suggestive of severe distal small vessel arterial occlusive disease in the right lower extremity and moderate distal small vessel arterial occlusive disease in the left lower extremity. She states that her diabetes is typically well controlled and that she has a chronic problem with ulcers in her lower extremities ever since having skin grafts placed in the past. The patient otherwise denies any fever, chills, nausea, vomiting, shortness of breath, chest pain or pressure, palpitations, orthopnea, syncope or presyncopal episodes. Progress of Wound: stable, slow wound healing becoming more superficial - Physical Exam Vital Signs Temp Pulse Resp BP 96.3 F L 82 18 141/74 H 01/28/18 01:07 01/28/18 01:07 01/28/18 01:07 01/28/18 01:07 General: Alert, Oriented x3, Cooperative, No apparent distress HEENT: Atraumatic Cardiovascular: Regular rate Extremities: Diminished Peripheral Pulses, Edema - Generalized bilateral lower extremity edema Skin: Ulcer/ Wound - Cluster ulcer present left posterior lower extremity, wound bed is moist and moderate amount of slough present Wound Measurements and Assessment WC - Nurse 2 - General Ulcer CM Notes Start: 02/04/18 16:33 Freq: Status: Active Protocol: Activity Type Activity Date Activity User E-Sign Co-Sign Detail Recorded Client Recorded Date Recorded By Document 02/04/18 17:25 DV [id number] 02/04/18 17:27 DV 02/04/18 17:25 Wound Center Nurse 2 [Procedure/Treatment] #6- LT CALF CLUSTER -Time 17:26 -Correct Patient Yes -Correct Side, Site, Position Yes -Correct Procedure Yes -Procedure Performed Yes -Type of Procedure Debridement -Clinical Debridement Subcutaneous -Post Debridement Size (cm) - Length 4.5 -Post Debridement Size (cm) - Width 5.5 -Post Debridement Size (cm) - Depth 0.1 -Total Square Cm 24.75 -Wound/Ulcer Outcome Not Healed -Ulcer Cleansing Rinsed/ Irrigated with Saline -Foul Odor after Cleansing No -Bioengineered Tissue No -Bleeding Controlled with Pressure -Treatment Response Procedure Tolerated Well [See Physician Procedure note for Specifics] Pain Scale: 0-10 Numeric [Pain] -Is Patient Pain Free? Yes Neurological: Cranial nerves II-XII grossly intact Psych/Mental Status: Normal Affect, Alert and oriented to time, place, person, mood and affect Debridement Note Post-Debridement Measurements/Treatment WC - Nurse 2 - General Ulcer CM Notes Start: 02/04/18 16:33 Freq: Status: Active Protocol: Activity Type Activity Date Activity User E-Sign Co-Sign Detail Recorded Client Recorded Date Recorded By Document 02/04/18 17:25 DV [id number] 02/04/18 17:27 DV 02/04/18 17:25 Wound Center Nurse 2 #6- LT CALF CLUSTER -Time 17:26 -Correct Patient Yes -Correct Side, Site, Position Yes -Correct Procedure Yes -Procedure Performed Yes -Type of Procedure Debridement -Clinical Debridement Subcutaneous -Post Debridement Size (cm) - Length 4.5 -Post Debridement Size (cm) - Width 5.5 -Post Debridement Size (cm) - Depth 0.1 -Total Square Cm 24.75 -Wound/Ulcer Outcome Not Healed -Ulcer Cleansing Rinsed/ Irrigated with Saline -Foul Odor after Cleansing No -Bioengineered Tissue No -Bleeding Controlled with Pressure -Treatment Response Procedure Tolerated Well Pain Scale: 0-10 Numeric Is Patient Pain Free? Yes Wound debrided: Nonhealing ulcer left posterior lower extremity Laterality: Left Type of Debridement: Excisional debridement Anesthesia Used: 5% Lidocaine Gel Depth: in the subcutaneous layer Percentage of wound debrided: 100 Instrument Used: 5mm curette Tissue Removed: Slough and fibrous tissue Severity: Fat Layer Exposed Amount of bleeding with debridement: Mild Bleeding Controlled with: Pressure Patient tolerated procedure well Assessment/Plan Active Problems (Last Updated 01/18/18 @ 11:46 by MISTY Suh) Nonhealing ulcer of left lower extremity with fat layer exposed (Acute) Lymphedema (Acute) PVD (peripheral vascular disease) (Acute) Diminished pulses in lower extremity (Acute) DM2 (diabetes mellitus, type 2) (Chronic) HTN (hypertension) (Chronic) Obesity (BMI 35.0-39.9 without comorbidity) (Chronic) Assessment: Nonhealing ulcer left lower extremity, wound is becoming more superficial wound bed appears moist where was previously desiccated Plan: The patient was seen and evaluated at the wound healing center today and updated on her plan of care. 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 Previous vascular studies reviewed from 2016 and demonstrated arterial occlusive disease. Repeat vascular studies demonstrated TBI right 0.41 and left 0.43, indicative of arterial disease and therefore placed referral to vascular surgeon Dr. Herring to discuss possible vascular intervention. Venous studies did demonstrate venous insufficiency. Cultures collected and demonstrated staph aureus which is susceptible to clindamycin, patient started on Clinda 3 times daily for 7 days and completed this. Patient's cellulitis is resolved. Blood work ordered and reviewed A1c 6.3 and pre-albumin slightly low, advised to increase protein in the diet. A subcutaneous debridement was performed during today's visit and the patient tolerated this well. I patient did follow- up with infectious disease as she was referred after her hospital stay who stated that she did not require any antibiotics additionally at this time. Daily dressing changes to include a thin application of hydrogel with moistened Fibracol and covered with gauze. No compression at this time due to poor arterial status. Did discuss with patient that her chronic wounds may be impaired due to her use of daily prednisone and that she should discuss her options with her application developer, which she saw and did not feel a change in meds was appropriate. Discussed with patient the importance of diet and nutrition and wound healing and that she should try to keep her blood sugars under control. Patient verbalized understanding. Discussed with patient red flag symptoms of systemic infection that require urgent medical attention. Patient will otherwise follow-up in the wound center in 1 week. Patient is seeking wound clearance for a bladder mesh surgery from her INSTRUMENTAL MUSIC TEACHER, from a wound standpoint she is stable and cleared. Did recommend that she obtain clearance from her cloth opener hand and PCP as well. Will apply for the potential use of Epifix and puraply in the future. This note was generated with [employer] dictation software. It may contain incorrect words, spelling, and punctuation that were not noted in checking the note before signing. Code Visit 111xxx-113xx: 19273 Galina subq tissue 20 sq cm/<
[2018-02-11 13:15] VITALS: BP 123/72; PULSE 61; RESP 18; TEMP 36; BMI 36.6
--- NOTE | 2018-02-11 16:44 | PCM.WC.PN ---
(1) Nonhealing ulcer of left lower extremity with fat layer exposed Status: Acute Current Visit: Yes Code(s): L97.922 - Non-pressure chronic ulcer of unspecified part of left lower leg with fat layer exposed (2) Diminished pulses in lower extremity Status: Acute Current Visit: Yes Code(s): R09.89 - Other specified symptoms and signs involving the circulatory and respiratory systems (3) Lymphedema Status: Acute Current Visit: Yes Code(s): I89.0 - Lymphedema, not elsewhere classified (4) PVD (peripheral vascular disease) Status: Acute Current Visit: Yes Code(s): I73.9 - Peripheral vascular disease, unspecified (5) DM2 (diabetes mellitus, type 2) Status: Chronic Current Visit: Yes Qualifiers: Code(s): E11.9 - Type 2 diabetes mellitus without complications (6) HTN (hypertension) Status: Chronic Current Visit: Yes Qualifiers: Code(s): I10 - Essential (primary) hypertension (7) Obesity (BMI 35.0-39.9 without comorbidity) Status: Chronic Current Visit: Yes Code(s): E66.9 - Obesity, unspecified Type of Wound Date of Service: 02/11/18 Chief Complaint: ulcers on the back of left leg that arent healing History of Wound: This is a 72-year-old white female who presents to the wound healing center today with complaint of nonhealing ulcers on the left posterior lower extremity which has been going on intermittently since 2013. She was recently admitted to [facility] from through 12/27/17 for severe sepsis and cellulitis of the left leg. She was treated with IV antibiotics and sent home on penicillin V potassium 4 times daily for 7 days and was instructed to follow-up with infectious disease and with the wound healing center. She does have a past medical history which is significant for coronary artery disease, paroxysmal atrial fibrillation, type 2 diabetes mellitus, RA,depression, hyperlipidemia, hypertension, CKD, peripheral vascular disease, and chronic lymphedema. Her wound treatments so far has been covering the ulcers with a bandage and KVNG wraps. She does state that the cellulitis has improved and that the pain has improved as well. She denies any discharge or foul-smelling odor from the wound. She did have arterial studies done in November 2015 which demonstrated left TBI of 0.6 and right TBI of 0.34 her vascular study at that time was suggestive of severe distal small vessel arterial occlusive disease in the right lower extremity and moderate distal small vessel arterial occlusive disease in the left lower extremity. She states that her diabetes is typically well controlled and that she has a chronic problem with ulcers in her lower extremities ever since having skin grafts placed in the past. The patient otherwise denies any fever, chills, nausea, vomiting, shortness of breath, chest pain or pressure, palpitations, orthopnea, syncope or presyncopal episodes. Progress of Wound: stable, slow wound healing - Physical Exam Vital Signs Temp Pulse Resp BP 96.8 F L 61 18 123/72 H 02/11/18 13:15 02/11/18 13:15 02/11/18 13:15 02/11/18 13:15 General: Alert, Oriented x3, Cooperative, No apparent distress HEENT: Atraumatic, PERRLA, EOMI Cardiovascular: Regular rate Extremities: Diminished Peripheral Pulses, Edema - Generalized bilateral lower extremities Skin: Ulcer/ Wound - Ulcer present left posterior calf, slough present. Wound bed moist without signs of infection Wound Measurements and Assessment WC - Nurse 1 - General Ulcer Measurement Start: 02/04/18 16:33 Freq: Status: Active Protocol: Activity Type Activity Date Activity User E-Sign Co-Sign Detail Recorded Client Recorded Date Recorded By Document 02/11/18 13:15 DL [id number] 02/11/18 13:22 DL 02/11/18 13:15 Wound Center Nurse 1 [Ulcer Assessment] #6- LT CALF CLUSTER -Current Size (cm) - Length 5.5 -Current Size (cm) - Width 4 -Current Size (cm) - Depth 0.1 -Total Square Cm 22.0 -Photo Taken No -Exudate Amt Small (1-33%) -Exudate Type Serosanguineous -Wound Margin Distinct, Outline Attached -Granulation Amt Large (67-100%) -Granulation Quality [place] -Necrotic Tissue Type Adherent Slough -Texture (Cassi-wound Skin Appearance) Scarring -Moisture (Cassi-wound Skin Appearance Dry/Scaly ) -Color (Cassi-wound Skin Appearance) No Abnormality -Temperature (Cassi-wound Skin No Abnormality Appearance) (Pt Warm) -Ulcer Cleansing Rinsed/ Irrigated with Saline -Foul Odor after Cleansing No -Anesthetic Used 4% Lidocaine Solution [Edema Assessment] -Left Calf (cm) 38 -Left Ankle (cm) 20.2 WC - Nurse 2 - General Ulcer CM Notes Start: 02/04/18 16:33 Freq: Status: Active Protocol: Activity Type Activity Date Activity User E-Sign Co-Sign Detail Recorded Client Recorded Date Recorded By Document 02/11/18 13:50 DV [id number] 02/11/18 13:53 DV 02/11/18 13:50 Wound Center Nurse 2 [Procedure/Treatment] #6- LT CALF CLUSTER -Time 13:50 -Correct Patient Yes -Correct Side, Site, Position Yes -Correct Procedure Yes -Procedure Performed Yes -Type of Procedure Debridement -Clinical Debridement Subcutaneous -Post Debridement Size (cm) - Length 5.5 -Post Debridement Size (cm) - Width 4.5 -Post Debridement Size (cm) - Depth 0.1 -Total Square Cm 24.75 -Wound/Ulcer Outcome Not Healed -Ulcer Cleansing Rinsed/ Irrigated with Saline -Foul Odor after Cleansing No -Bioengineered Tissue No -Bleeding Controlled with Pressure -Treatment Response Procedure Tolerated Well [See Physician Procedure note for Specifics] Pain Scale: 0-10 Numeric [Pain] -Is Patient Pain Free? Yes Psych/Mental Status: Normal Affect, Alert and oriented to time, place, person, mood and affect Debridement Note Post-Debridement Measurements/Treatment - Nurse 2 - General Ulcer CM Notes Start: 02/04/18 16:33 Freq: Status: Active Protocol: Activity Type Activity Date Activity User E-Sign Co-Sign Detail Recorded Client Recorded Date Recorded By Document 02/04/18 17:25 DV [id number] 02/04/18 17:27 DV Document 02/11/18 13:50 DV [id number] 02/11/18 13:53 DV 02/04/18 02/11/18 17:25 13:50 Wound Center Nurse 2 #6- LT CALF CLUSTER -Time 17:26 13:50 -Correct Patient Yes Yes -Correct Side, Site, Position Yes Yes -Correct Procedure Yes Yes -Procedure Performed Yes Yes -Type of Procedure Debridement Debridement -Clinical Debridement Subcutaneous Subcutaneous -Post Debridement Size (cm) - Length 4.5 5.5 -Post Debridement Size (cm) - Width 5.5 4.5 -Post Debridement Size (cm) - Depth 0.1 0.1 -Total Square Cm 24.75 24.75 -Wound/Ulcer Outcome Not Healed Not Healed -Ulcer Cleansing Rinsed/ Rinsed/ Irrigated with Irrigated with Saline Saline -Foul Odor after Cleansing No No -Bioengineered Tissue No No -Bleeding Controlled with Pressure Pressure -Treatment Response Procedure Procedure Tolerated Well Tolerated Well Pain Scale: 0-10 Numeric Is Patient Pain Free? 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 Laterality: Left Type of Debridement: Excisional debridement Anesthesia Used: 5% Lidocaine Gel Depth: in the subcutaneous layer Percentage of wound debrided: 100 Instrument Used: 5mm curette Tissue Removed: Slough and devitalized tissue Severity: Fat Layer Exposed Amount of bleeding with debridement: Mild Bleeding Controlled with: Pressure Patient tolerated procedure well Assessment/Plan Active Problems (Last Updated 01/18/18 @ 11:46 by MISTY Suh) Nonhealing ulcer of left lower extremity with fat layer exposed (Acute) Lymphedema (Acute) PVD (peripheral vascular disease) (Acute) Diminished pulses in lower extremity (Acute) DM2 (diabetes mellitus, type 2) (Chronic) HTN (hypertension) (Chronic) Obesity (BMI 35.0-39.9 without comorbidity) (Chronic) Assessment: Nonhealing ulcer left lower extremity, wound is becoming more superficial wound bed appears moist where was previously desiccated Plan: The patient was seen and evaluated at the wound healing center today and updated on her plan of care. 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 Previous vascular studies reviewed from 2016 and demonstrated arterial occlusive disease. Repeat vascular studies demonstrated TBI right 0.41 and left 0.43, indicative of arterial disease and therefore placed referral to vascular surgeon Dr. Herring to discuss possible vascular intervention. Venous studies did demonstrate venous insufficiency. Cultures collected and demonstrated staph aureus which is susceptible to clindamycin, patient started on Clinda 3 times daily for 7 days and completed this. Patient's cellulitis is resolved. Blood work ordered and reviewed A1c 6.3 and pre-albumin slightly low, advised to increase protein in the diet. A subcutaneous debridement was performed during today's visit and the patient tolerated this well. I patient did follow-up with infectious disease as she was referred after her hospital stay who stated that she did not require any antibiotics additionally at this time. Daily dressing changes to include a thin application of hydrogel with moistened Fibracol and covered with gauze. No compression at this time due to poor arterial status. Did discuss with patient that her chronic wounds may be impaired due to her use of daily prednisone and that she should discuss her options with her packaging engineer, which she saw and did not feel a change in meds was appropriate. Discussed with patient the importance of diet and nutrition and wound healing and that she should try to keep her blood sugars under control. Patient verbalized understanding. Discussed with patient red flag symptoms of systemic infection that require urgent medical attention. Patient will otherwise follow-up in the wound center in 1 week. Patient is seeking wound clearance for a bladder mesh surgery from her LENS BLOCKER, from a wound standpoint she is stable and cleared. Did recommend that she obtain clearance from her yarrow gatherer and PCP as well. Will apply for the potential use of Epifix and puraply in the future. This note was generated with [employer] dictation software. It may contain incorrect words, spelling, and punctuation that were not noted in checking the note before signing. Code Visit 111xxx-113xx: 03162 Galina subq tissue 20 sq cm/< Add On Codes: 25622 Galina subq tissue add-on
--- NOTE | 2018-02-12 11:56 | PN.PCM_ITS ---
(1) Nonhealing ulcer of left lower extremity with fat layer exposed Status: Acute Current Visit: Yes Code(s): L97.922 - Non-pressure chronic ulcer of unspecified part of left lower leg with fat layer exposed (2) Diminished pulses in lower extremity Status: Acute Current Visit: Yes Code(s): R09.89 - Other specified symptoms and signs involving the circulatory and respiratory systems (3) Lymphedema Status: Acute Current Visit: Yes Code(s): I89.0 - Lymphedema, not elsewhere classified (4) PVD (peripheral vascular disease) Status: Acute Current Visit: Yes Code(s): I73.9 - Peripheral vascular disease, unspecified (5) DM2 (diabetes mellitus, type 2) Status: Chronic Current Visit: Yes Qualifiers: Code(s): E11.9 - Type 2 diabetes mellitus without complications (6) HTN (hypertension) Status: Chronic Current Visit: Yes Qualifiers: Code(s): I10 - Essential (primary) hypertension (7) Obesity (BMI 35.0-39.9 without comorbidity) Status: Chronic Current Visit: Yes Code(s): E66.9 - Obesity, unspecified Type of Wound Date of Service: 02/11/18 Chief Complaint: ulcers on the back of left leg that arent healing History of Wound: This is a 72-year-old white female who presents to the wound healing center today with complaint of nonhealing ulcers on the left posterior lower extremity which has been going on intermittently since 2013. She was recently admitted to [facility] from through 12/27/17 for severe sepsis and cellulitis of the left leg. She was treated with IV antibiotics and sent home on penicillin V potassium 4 times daily for 7 days and was instructed to follow-up with infectious disease and with the wound healing center. She does have a past medical history which is significant for coronary artery disease, paroxysmal atrial fibrillation, type 2 diabetes mellitus, RA,depression, hyperlipidemia, hypertension, CKD, peripheral vascular disease, and chronic lymphedema. Her wound treatments so far has been covering the ulcers with a bandage and KVNG wraps. She does state that the cellulitis has improved and that the pain has improved as well. She denies any discharge or foul-smelling odor from the wound. She did have arterial studies done in November 2015 which demonstrated left TBI of 0.6 and right TBI of 0.34 her vascular study at that time was suggestive of severe distal small vessel arterial occlusive disease in the right lower extremity and moderate distal small vessel arterial occlusive disease in the left lower extremity. She states that her diabetes is typically well controlled and that she has a chronic problem with ulcers in her lower extremities ever since having skin grafts placed in the past. The patient otherwise denies any fever, chills, nausea, vomiting, shortness of breath, chest pain or pressure, palpitations, orthopnea, syncope or presyncopal episodes. Progress of Wound: stable, slow wound healing - Physical Exam Vital Signs Temp Pulse Resp BP 96.8 F L 61 18 123/72 H 02/11/18 13:15 02/11/18 13:15 02/11/18 13:15 02/11/18 13:15 General: Alert, Oriented x3, Cooperative, No apparent distress HEENT: Atraumatic, PERRLA, EOMI Cardiovascular: Regular rate Extremities: Diminished Peripheral Pulses, Edema - Generalized bilateral lower extremities Skin: Ulcer/ Wound - Ulcer present left posterior calf, slough present. Wound bed moist without signs of infection Wound Measurements and Assessment WC - Nurse 1 - General Ulcer Measurement Start: 02/04/18 16:33 Freq: Status: Active Protocol: Activity Type Activity Date Activity User E-Sign Co-Sign Detail Recorded Client Recorded Date Recorded By Document 02/11/18 13:15 DL [id number] 02/11/18 13:22 DL 02/11/18 13:15 Wound Center Nurse 1 [Ulcer Assessment] #6- LT CALF CLUSTER -Current Size (cm) - Length 5.5 -Current Size (cm) - Width 4 -Current Size (cm) - Depth 0.1 -Total Square Cm 22.0 -Photo Taken No -Exudate Amt Small (1-33%) -Exudate Type Serosanguineous -Wound Margin Distinct, Outline Attached -Granulation Amt Large (67-100%) -Granulation Quality Briggs -Necrotic Tissue Type Adherent Slough -Texture (Cassi-wound Skin Appearance) Scarring -Moisture (Cassi-wound Skin Appearance Dry/Scaly ) -Color (Cassi-wound Skin Appearance) No Abnormality -Temperature (Cassi-wound Skin No Abnormality Appearance) (Pt Warm) -Ulcer Cleansing Rinsed/ Irrigated with Saline -Foul Odor after Cleansing No -Anesthetic Used 4% Lidocaine Solution [Edema Assessment] -Left Calf (cm) 38 -Left Ankle (cm) 20.2 WC - Nurse 2 - General Ulcer CM Notes Start: 02/04/18 16:33 Freq: Status: Active Protocol: Activity Type Activity Date Activity User E-Sign Co-Sign Detail Recorded Client Recorded Date Recorded By Document 02/11/18 13:50 DV [id number] 02/11/18 13:53 DV 02/11/18 13:50 Wound Center Nurse 2 [Procedure/Treatment] #6- LT CALF CLUSTER -Time 13:50 -Correct Patient Yes -Correct Side, Site, Position Yes -Correct Procedure Yes -Procedure Performed Yes -Type of Procedure Debridement -Clinical Debridement Subcutaneous -Post Debridement Size (cm) - Length 5.5 -Post Debridement Size (cm) - Width 4.5 -Post Debridement Size (cm) - Depth 0.1 -Total Square Cm 24.75 -Wound/Ulcer Outcome Not Healed -Ulcer Cleansing Rinsed/ Irrigated with Saline -Foul Odor after Cleansing No -Bioengineered Tissue No -Bleeding Controlled with Pressure -Treatment Response Procedure Tolerated Well [See Physician Procedure note for Specifics] Pain Scale: 0-10 Numeric [Pain] -Is Patient Pain Free? Yes Psych/Mental Status: Normal Affect, Alert and oriented to time, place, person, mood and affect Debridement Note Post-Debridement Measurements/Treatment - Nurse 2 - General Ulcer CM Notes Start: 02/04/18 16:33 Freq: Status: Active Protocol: Activity Type Activity Date Activity User E-Sign Co-Sign Detail Recorded Client Recorded Date Recorded By Document 02/04/18 17:25 DV [id number] 02/04/18 17:27 DV Document 02/11/18 13:50 DV [id number] 02/11/18 13:53 DV 02/04/18 02/11/18 17:25 13:50 Wound Center Nurse 2 #6- LT CALF CLUSTER -Time 17:26 13:50 -Correct Patient Yes Yes -Correct Side, Site, Position Yes Yes -Correct Procedure Yes Yes -Procedure Performed Yes Yes -Type of Procedure Debridement Debridement -Clinical Debridement Subcutaneous Subcutaneous -Post Debridement Size (cm) - Length 4.5 5.5 -Post Debridement Size (cm) - Width 5.5 4.5 -Post Debridement Size (cm) - Depth 0.1 0.1 -Total Square Cm 24.75 24.75 -Wound/Ulcer Outcome Not Healed Not Healed -Ulcer Cleansing Rinsed/ Rinsed/ Irrigated with Irrigated with Saline Saline -Foul Odor after Cleansing No No -Bioengineered Tissue No No -Bleeding Controlled with Pressure Pressure -Treatment Response Procedure Procedure Tolerated Well Tolerated Well Pain Scale: 0-10 Numeric Is Patient Pain Free? 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 Laterality: Left Type of Debridement: Excisional debridement Anesthesia Used: 5% Lidocaine Gel Depth: in the subcutaneous layer Percentage of wound debrided: 100 Instrument Used: 5mm curette Tissue Removed: Slough and devitalized tissue Severity: Fat Layer Exposed Amount of bleeding with debridement: Mild Bleeding Controlled with: Pressure Patient tolerated procedure well Assessment/Plan Active Problems (Last Updated 01/18/18 @ 11:46 by MISTY Suh) Nonhealing ulcer of left lower extremity with fat layer exposed (Acute) Lymphedema (Acute) PVD (peripheral vascular disease) (Acute) Diminished pulses in lower extremity (Acute) DM2 (diabetes mellitus, type 2) (Chronic) HTN (hypertension) (Chronic) Obesity (BMI 35.0-39.9 without comorbidity) (Chronic) Assessment: Nonhealing ulcer left lower extremity, wound is becoming more superficial wound bed appears moist where was previously desiccated Plan: The patient was seen and evaluated at the wound healing center today and updated on her plan of care. 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 Previous vascular studies reviewed from 2016 and demonstrated arterial occlusive disease. Repeat vascular studies demonstrated TBI right 0.41 and left 0.43, indicative of arterial disease and therefore placed referral to vascular surgeon Dr. Herring to discuss possible vascular intervention. Venous studies did demonstrate venous insufficiency. Cultures collected and demonstrated staph aureus which is susceptible to clindamycin, patient started on Clinda 3 times daily for 7 days and completed this. Patient's cellulitis is resolved. Blood work ordered and reviewed A1c 6.3 and pre-albumin slightly low, advised to increase protein in the diet. A subcutaneous debridement was performed during today's visit and the patient tolerated this well. I patient did follow- up with infectious disease as she was referred after her hospital stay who stated that she did not require any antibiotics additionally at this time. Daily dressing changes to include a thin application of hydrogel with moistened Fibracol and covered with gauze. No compression at this time due to poor arterial status. Did discuss with patient that her chronic wounds may be impaired due to her use of daily prednisone and that she should discuss her options with her freight elevator operator, which she saw and did not feel a change in meds was appropriate. Discussed with patient the importance of diet and nutrition and wound healing and that she should try to keep her blood sugars under control. Patient verbalized understanding. Discussed with patient red flag symptoms of systemic infection that require urgent medical attention. Patient will otherwise follow-up in the wound center in 1 week. Patient is seeking wound clearance for a bladder mesh surgery from her AUDIOLOGIST, from a wound standpoint she is stable and cleared. Did recommend that she obtain clearance from her technical aid and PCP as well. Will apply for the potential use of Epifix and puraply in the future. This note was generated with [employer] dictation software. It may contain incorrect words, spelling, and punctuation that were not noted in checking the note before signing. Code Visit 111xxx-113xx: 17097 Galina subq tissue 20 sq cm/< Add On Codes: 11511 Galina subq tissue add-on
[2018-02-18 14:56] VITALS: BP 158/89; PULSE 63; RESP 18; TEMP 36.1; BMI 36.6
--- NOTE | 2018-02-18 17:54 | PCM.WC.PN ---
(1) Nonhealing ulcer of left lower extremity with fat layer exposed Status: Acute Current Visit: Yes Code(s): L97.922 - Non-pressure chronic ulcer of unspecified part of left lower leg with fat layer exposed (2) Diminished pulses in lower extremity Status: Acute Current Visit: Yes Code(s): R09.89 - Other specified symptoms and signs involving the circulatory and respiratory systems (3) Lymphedema Status: Acute Current Visit: Yes Code(s): I89.0 - Lymphedema, not elsewhere classified (4) PVD (peripheral vascular disease) Status: Acute Current Visit: Yes Code(s): I73.9 - Peripheral vascular disease, unspecified (5) DM2 (diabetes mellitus, type 2) Status: Chronic Current Visit: Yes Qualifiers: Code(s): E11.9 - Type 2 diabetes mellitus without complications (6) HTN (hypertension) Status: Chronic Current Visit: Yes Qualifiers: Code(s): I10 - Essential (primary) hypertension (7) Obesity (BMI 35.0-39.9 without comorbidity) Status: Chronic Current Visit: Yes Code(s): E66.9 - Obesity, unspecified Type of Wound Date of Service: 02/18/18 Chief Complaint: ulcers on the back of left leg that arent healing History of Wound: This is a 72-year-old white female who presents to the wound healing center today with complaint of nonhealing ulcers on the left posterior lower extremity which has been going on intermittently since 2013. She was recently admitted to [facility] from through 12/27/17 for severe sepsis and cellulitis of the left leg. She was treated with IV antibiotics and sent home on penicillin V potassium 4 times daily for 7 days and was instructed to follow-up with infectious disease and with the wound healing center. She does have a past medical history which is significant for coronary artery disease, paroxysmal atrial fibrillation, type 2 diabetes mellitus, RA,depression, hyperlipidemia, hypertension, CKD, peripheral vascular disease, and chronic lymphedema. Her wound treatments so far has been covering the ulcers with a bandage and KVNG wraps. She does state that the cellulitis has improved and that the pain has improved as well. She denies any discharge or foul-smelling odor from the wound. She did have arterial studies done in November 2015 which demonstrated left TBI of 0.6 and right TBI of 0.34 her vascular study at that time was suggestive of severe distal small vessel arterial occlusive disease in the right lower extremity and moderate distal small vessel arterial occlusive disease in the left lower extremity. She states that her diabetes is typically well controlled and that she has a chronic problem with ulcers in her lower extremities ever since having skin grafts placed in the past. The patient otherwise denies any fever, chills, nausea, vomiting, shortness of breath, chest pain or pressure, palpitations, orthopnea, syncope or presyncopal episodes. Progress of Wound: stable, slow wound healing - Physical Exam Vital Signs Temp Pulse Resp BP 96.9 F L 63 18 158/89 H 02/18/18 14:56 02/18/18 14:56 02/18/18 14:56 02/18/18 14:56 General: Alert, Oriented x3, Cooperative, No apparent distress HEENT: Atraumatic Cardiovascular: Regular rate Extremities: Diminished Peripheral Pulses, Edema - Generalized bilateral lower extremity edema Skin: Ulcer/ Wound - Cluster ulceration present left lower extremity posterior calf, distal end of ulceration is dry and desiccated, no signs of infection, slough present and no purulent drainage or pain Wound Measurements and Assessment WC - Nurse 1 - General Ulcer Measurement Start: 02/04/18 16:33 Freq: Status: Active Protocol: Activity Type Activity Date Activity User E-Sign Co-Sign Detail Recorded Client Recorded Date Recorded By Document 02/18/18 14:56 MW [id number] 02/18/18 14:58 MW 02/18/18 14:56 Wound Center Nurse 1 [Ulcer Assessment] #6- LT CALF CLUSTER -Combined with other wound No -Current Size (cm) - Length 4.0 -Current Size (cm) - Width 1.6 -Current Size (cm) - Depth 0.1 -Total Square Cm 6.40 -Date of Last Picture (Recall this 02/18/18 field) -Photo Taken Yes -Epithelialization None Present -Tunneling No -Undermining/Tunneling No -Circular Undermining No -Exudate Amt Small (1-33%) -Exudate Type Serosanguineous -Wound Margin Distinct, Outline Attached -Granulation Amt Medium (34-66%) -Granulation Quality Red -Slough/Fibrin Yes -Necrosis Amt Small (1-33%) -Necrotic Tissue Type Adherent Slough -Structure Exposed N/A -Texture (Cassi-wound Skin Appearance) Assessed Localized Edema Scarring -Moisture (Cassi-wound Skin Appearance Assessed ) Dry/Scaly -Color (Cassi-wound Skin Appearance) No Abnormality Assessed -Temperature (Cassi-wound Skin No Abnormality Appearance) (Pt Warm) -Tenderness on Palpation (Cassi-wound No Skin Appearance) -Ulcer Cleansing Rinsed/ Irrigated with Saline -Foul Odor after Cleansing No -Anesthetic Used 4% Lidocaine Solution [Edema Assessment] -Lower Limb Edema Present No -Left Calf (cm) 39.8 -Left Ankle (cm) 21.0 - Nurse 2 - General Ulcer CM Notes Start: 02/04/18 16:33 Freq: Status: Active Protocol: Activity Type Activity Date Activity User E-Sign Co-Sign Detail Recorded Client Recorded Date Recorded By Document 02/18/18 15:46 DV [id number] 02/18/18 15:50 DV 02/18/18 15:46 Wound Center Nurse 2 [Procedure/Treatment] #6- LT CALF CLUSTER -Time 15:46 -Correct Patient Yes -Correct Side, Site, Position Yes -Correct Procedure Yes -Procedure Performed Yes -Type of Procedure Debridement -Clinical Debridement Subcutaneous -Post Debridement Size (cm) - Length 6.2 -Post Debridement Size (cm) - Width 1.5 -Post Debridement Size (cm) - Depth 0.1 -Total Square Cm 9.30 -Wound/Ulcer Outcome Not Healed -Ulcer Cleansing Rinsed/ Irrigated with Saline -Foul Odor after Cleansing No -Bioengineered Tissue No -Bleeding Controlled with Pressure -Treatment Response Procedure Tolerated Well [See Physician Procedure note for Specifics] Pain Scale: 0-10 Numeric [Pain] -Is Patient Pain Free? Yes Neurological: Neuro grossly intact Psych/Mental Status: Normal Affect, Alert and oriented to time, place, person, mood and affect Debridement Note Post-Debridement Measurements/Treatment - Nurse 2 - General Ulcer CM Notes Start: 02/04/18 16:33 Freq: Status: Active Protocol: Activity Type Activity Date Activity User E-Sign Co-Sign Detail Recorded Client Recorded Date Recorded By Document 02/04/18 17:25 DV [id number] 02/04/18 17:27 DV Document 02/11/18 13:50 DV [id number] 02/11/18 13:53 DV Document 02/18/18 15:46 DV [id number] 02/18/18 15:50 DV 02/04/18 02/11/18 02/18/18 17:25 13:50 15:46 Wound Center Nurse 2 #6- LT CALF CLUSTER -Time 17:26 13:50 15:46 -Correct Patient Yes Yes Yes -Correct Side, Site, Position Yes Yes Yes -Correct Procedure Yes Yes Yes -Procedure Performed Yes Yes Yes -Type of Procedure Debridement Debridement Debridement -Clinical Debridement Subcutaneous Subcutaneous Subcutaneous -Post Debridement Size (cm) - Length 4.5 5.5 6.2 -Post Debridement Size (cm) - Width 5.5 4.5 1.5 -Post Debridement Size (cm) - Depth 0.1 0.1 0.1 -Total Square Cm 24.75 24.75 9.30 -Wound/Ulcer Outcome Not Healed Not Healed Not Healed -Ulcer Cleansing Rinsed/ Rinsed/ Rinsed/ Irrigated with Irrigated with Irrigated with Saline Saline Saline -Foul Odor after Cleansing No No No -Bioengineered Tissue No No No -Bleeding Controlled with Pressure Pressure Pressure -Treatment Response Procedure Procedure Procedure Tolerated Well Tolerated Well Tolerated Well Pain Scale: 0-10 Numeric Is Patient Pain Free? Yes Yes Yes Wound debrided: Left lower extremity posterior calf cluster ulceration Laterality: Left Type of Debridement: Excisional debridement Anesthesia Used: 5% Lidocaine Gel Depth: in the subcutaneous layer Percentage of wound debrided: 100 Instrument Used: 5mm curette Tissue Removed: Slough and fibrous tissue Severity: Fat Layer Exposed Amount of bleeding with debridement: Mild Bleeding Controlled with: Pressure Patient tolerated procedure well Assessment/Plan Active Problems (Last Updated 01/18/18 @ 11:46 by MISTY Suh) Nonhealing ulcer of left lower extremity with fat layer exposed (Acute) Lymphedema (Acute) PVD (peripheral vascular disease) (Acute) Diminished pulses in lower extremity (Acute) DM2 (diabetes mellitus, type 2) (Chronic) HTN (hypertension) (Chronic) Obesity (BMI 35.0-39.9 without comorbidity) (Chronic) Assessment: Nonhealing ulcer left lower extremity, wound is slowly improving, distal end of wound was more desiccated than prior, there for a change in dressings as warranted. Did discuss with patient the importance of having a vascular consultation given her mixed venous and arterial status. A referral was placed for vascular. Plan: The patient was seen and evaluated at the wound healing center today and updated on her plan of care. 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 Previous vascular studies reviewed from 2016 and demonstrated arterial occlusive disease. Repeat vascular studies demonstrated TBI right 0.41 and left 0.43, indicative of arterial disease and therefore placed referral to vascular surgeon Dr. Herring to discuss possible vascular intervention. Venous studies did demonstrate venous insufficiency. Cultures collected and demonstrated staph aureus which is susceptible to clindamycin, patient started on Clinda 3 times daily for 7 days and completed this. Patient's cellulitis is resolved. Blood work ordered and reviewed A1c 6.3 and pre-albumin slightly low, advised to increase protein in the diet. A subcutaneous debridement was performed during today's visit and the patient tolerated this well. patient did follow-up with infectious disease as she was referred after her hospital stay who stated that she did not require any antibiotics additionally at this time. Daily dressing changes to include a thin application of hydrogel with Adaptic and covered with gauze. No compression at this time due to poor arterial status. Did discuss with patient that her chronic wounds may be impaired due to her use of daily prednisone and that she should discuss her options with her lamp wirer, which she saw and did not feel a change in meds was appropriate. Discussed with patient the importance of diet and nutrition and wound healing and that she should try to keep her blood sugars under control. Patient verbalized understanding. Discussed with patient red flag symptoms of systemic infection that require urgent medical attention. Patient will otherwise follow-up in the wound center in 1 week. Patient is seeking wound clearance for a bladder mesh surgery from her CRYPTOLOGIC LINGUIST, from a wound standpoint she is stable and cleared. Did recommend that she obtain clearance from her share holder and PCP as well. This note was generated with [employer] dictation software. It may contain incorrect words, spelling, and punctuation that were not noted in checking the note before signing. Code Visit 111xxx-113xx: 23549 Galina subq tissue 20 sq cm/<
--- NOTE | 2018-02-21 10:58 | PN.PCM_ITS ---
(1) Nonhealing ulcer of left lower extremity with fat layer exposed Status: Acute Current Visit: Yes Code(s): L97.922 - Non-pressure chronic ulcer of unspecified part of left lower leg with fat layer exposed (2) Diminished pulses in lower extremity Status: Acute Current Visit: Yes Code(s): R09.89 - Other specified symptoms and signs involving the circulatory and respiratory systems (3) Lymphedema Status: Acute Current Visit: Yes Code(s): I89.0 - Lymphedema, not elsewhere classified (4) PVD (peripheral vascular disease) Status: Acute Current Visit: Yes Code(s): I73.9 - Peripheral vascular disease, unspecified (5) DM2 (diabetes mellitus, type 2) Status: Chronic Current Visit: Yes Qualifiers: Code(s): E11.9 - Type 2 diabetes mellitus without complications (6) HTN (hypertension) Status: Chronic Current Visit: Yes Qualifiers: Code(s): I10 - Essential (primary) hypertension (7) Obesity (BMI 35.0-39.9 without comorbidity) Status: Chronic Current Visit: Yes Code(s): E66.9 - Obesity, unspecified Type of Wound Date of Service: 02/18/18 Chief Complaint: ulcers on the back of left leg that arent healing History of Wound: This is a 72-year-old white female who presents to the wound healing center today with complaint of nonhealing ulcers on the left posterior lower extremity which has been going on intermittently since 2013. She was recently admitted to [facility] from through 12/27/17 for severe sepsis and cellulitis of the left leg. She was treated with IV antibiotics and sent home on penicillin V potassium 4 times daily for 7 days and was instructed to follow-up with infectious disease and with the wound healing center. She does have a past medical history which is significant for coronary artery disease, paroxysmal atrial fibrillation, type 2 diabetes mellitus, RA,depression, hyperlipidemia, hypertension, CKD, peripheral vascular disease, and chronic lymphedema. Her wound treatments so far has been covering the ulcers with a bandage and KVNG wraps. She does state that the cellulitis has improved and that the pain has improved as well. She denies any discharge or foul-smelling odor from the wound. She did have arterial studies done in November 2015 which demonstrated left TBI of 0.6 and right TBI of 0.34 her vascular study at that time was suggestive of severe distal small vessel arterial occlusive disease in the right lower extremity and moderate distal small vessel arterial occlusive disease in the left lower extremity. She states that her diabetes is typically well controlled and that she has a chronic problem with ulcers in her lower extremities ever since having skin grafts placed in the past. The patient otherwise denies any fever, chills, nausea, vomiting, shortness of breath, chest pain or pressure, palpitations, orthopnea, syncope or presyncopal episodes. Progress of Wound: stable, slow wound healing - Physical Exam Vital Signs Temp Pulse Resp BP 96.9 F L 63 18 158/89 H 02/18/18 14:56 02/18/18 14:56 02/18/18 14:56 02/18/18 14:56 General: Alert, Oriented x3, Cooperative, No apparent distress HEENT: Atraumatic Cardiovascular: Regular rate Extremities: Diminished Peripheral Pulses, Edema - Generalized bilateral lower extremity edema Skin: Ulcer/ Wound - Cluster ulceration present left lower extremity posterior calf, distal end of ulceration is dry and desiccated, no signs of infection, slough present and no purulent drainage or pain Wound Measurements and Assessment WC - Nurse 1 - General Ulcer Measurement Start: 02/04/18 16:33 Freq: Status: Active Protocol: Activity Type Activity Date Activity User E-Sign Co-Sign Detail Recorded Client Recorded Date Recorded By Document 02/18/18 14:56 MW [id number] 02/18/18 14:58 MW 02/18/18 14:56 Wound Center Nurse 1 [Ulcer Assessment] #6- LT CALF CLUSTER -Combined with other wound No -Current Size (cm) - Length 4.0 -Current Size (cm) - Width 1.6 -Current Size (cm) - Depth 0.1 -Total Square Cm 6.40 -Date of Last Picture (Recall this 02/18/18 field) -Photo Taken Yes -Epithelialization None Present -Tunneling No -Undermining/Tunneling No -Circular Undermining No -Exudate Amt Small (1-33%) -Exudate Type Serosanguineous -Wound Margin Distinct, Outline Attached -Granulation Amt Medium (34-66%) -Granulation Quality Red -Slough/Fibrin Yes -Necrosis Amt Small (1-33%) -Necrotic Tissue Type Adherent Slough -Structure Exposed N/A -Texture (Cassi-wound Skin Appearance) Assessed Localized Edema Scarring -Moisture (Cassi-wound Skin Appearance Assessed ) Dry/Scaly -Color (Cassi-wound Skin Appearance) No Abnormality Assessed -Temperature (Cassi-wound Skin No Abnormality Appearance) (Pt Warm) -Tenderness on Palpation (Cassi-wound No Skin Appearance) -Ulcer Cleansing Rinsed/ Irrigated with Saline -Foul Odor after Cleansing No -Anesthetic Used 4% Lidocaine Solution [Edema Assessment] -Lower Limb Edema Present No -Left Calf (cm) 39.8 -Left Ankle (cm) 21.0 - Nurse 2 - General Ulcer CM Notes Start: 02/04/18 16:33 Freq: Status: Active Protocol: Activity Type Activity Date Activity User E-Sign Co-Sign Detail Recorded Client Recorded Date Recorded By Document 02/18/18 15:46 DV [id number] 02/18/18 15:50 DV 02/18/18 15:46 Wound Center Nurse 2 [Procedure/Treatment] #6- LT CALF CLUSTER -Time 15:46 -Correct Patient Yes -Correct Side, Site, Position Yes -Correct Procedure Yes -Procedure Performed Yes -Type of Procedure Debridement -Clinical Debridement Subcutaneous -Post Debridement Size (cm) - Length 6.2 -Post Debridement Size (cm) - Width 1.5 -Post Debridement Size (cm) - Depth 0.1 -Total Square Cm 9.30 -Wound/Ulcer Outcome Not Healed -Ulcer Cleansing Rinsed/ Irrigated with Saline -Foul Odor after Cleansing No -Bioengineered Tissue No -Bleeding Controlled with Pressure -Treatment Response Procedure Tolerated Well [See Physician Procedure note for Specifics] Pain Scale: 0-10 Numeric [Pain] -Is Patient Pain Free? Yes Neurological: Neuro grossly intact Psych/Mental Status: Normal Affect, Alert and oriented to time, place, person, mood and affect Debridement Note Post-Debridement Measurements/Treatment - Nurse 2 - General Ulcer CM Notes Start: 02/04/18 16:33 Freq: Status: Active Protocol: Activity Type Activity Date Activity User E-Sign Co-Sign Detail Recorded Client Recorded Date Recorded By Document 02/04/18 17:25 DV [id number] 02/04/18 17:27 DV Document 02/11/18 13:50 DV [id number] 02/11/18 13:53 DV Document 02/18/18 15:46 DV [id number] 02/18/18 15:50 DV 02/04/18 02/11/18 02/18/18 17:25 13:50 15:46 Wound Center Nurse 2 #6- LT CALF CLUSTER -Time 17:26 13:50 15:46 -Correct Patient Yes Yes Yes -Correct Side, Site, Position Yes Yes Yes -Correct Procedure Yes Yes Yes -Procedure Performed Yes Yes Yes -Type of Procedure Debridement Debridement Debridement -Clinical Debridement Subcutaneous Subcutaneous Subcutaneous -Post Debridement Size (cm) - Length 4.5 5.5 6.2 -Post Debridement Size (cm) - Width 5.5 4.5 1.5 -Post Debridement Size (cm) - Depth 0.1 0.1 0.1 -Total Square Cm 24.75 24.75 9.30 -Wound/Ulcer Outcome Not Healed Not Healed Not Healed -Ulcer Cleansing Rinsed/ Rinsed/ Rinsed/ Irrigated with Irrigated with Irrigated with Saline Saline Saline -Foul Odor after Cleansing No No No -Bioengineered Tissue No No No -Bleeding Controlled with Pressure Pressure Pressure -Treatment Response Procedure Procedure Procedure Tolerated Well Tolerated Well Tolerated Well Pain Scale: 0-10 Numeric Is Patient Pain Free? Yes Yes Yes Wound debrided: Left lower extremity posterior calf cluster ulceration Laterality: Left Type of Debridement: Excisional debridement Anesthesia Used: 5% Lidocaine Gel Depth: in the subcutaneous layer Percentage of wound debrided: 100 Instrument Used: 5mm curette Tissue Removed: Slough and fibrous tissue Severity: Fat Layer Exposed Amount of bleeding with debridement: Mild Bleeding Controlled with: Pressure Patient tolerated procedure well Assessment/Plan Active Problems (Last Updated 01/18/18 @ 11:46 by MISTY Suh) Nonhealing ulcer of left lower extremity with fat layer exposed (Acute) Lymphedema (Acute) PVD (peripheral vascular disease) (Acute) Diminished pulses in lower extremity (Acute) DM2 (diabetes mellitus, type 2) (Chronic) HTN (hypertension) (Chronic) Obesity (BMI 35.0-39.9 without comorbidity) (Chronic) Assessment: Nonhealing ulcer left lower extremity, wound is slowly improving, distal end of wound was more desiccated than prior, there for a change in dressings as warranted. Did discuss with patient the importance of having a vascular consultation given her mixed venous and arterial status. A referral was placed for vascular. Plan: The patient was seen and evaluated at the wound healing center today and updated on her plan of care. 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 Previous vascular studies reviewed from 2016 and demonstrated arterial occlusive disease. Repeat vascular studies demonstrated TBI right 0.41 and left 0.43, indicative of arterial disease and therefore placed referral to vascular surgeon Dr. Herring to discuss possible vascular intervention. Venous studies did demonstrate venous insufficiency. Cultures collected and demonstrated staph aureus which is susceptible to clindamycin, patient started on Clinda 3 times daily for 7 days and completed this. Patient's cellulitis is resolved. Blood work ordered and reviewed A1c 6.3 and pre-albumin slightly low, advised to increase protein in the diet. A subcutaneous debridement was performed during today's visit and the patient tolerated this well. patient did follow-up with infectious disease as she was referred after her hospital stay who stated that she did not require any antibiotics additionally at this time. Daily dressing changes to include a thin application of hydrogel with Adaptic and covered with gauze. No compression at this time due to poor arterial status. Did discuss with patient that her chronic wounds may be impaired due to her use of daily prednisone and that she should discuss her options with her water filtration technician, which she saw and did not feel a change in meds was appropriate. Discussed with patient the importance of diet and nutrition and wound healing and that she should try to keep her blood sugars under control. Patient verbalized understanding. Discussed with patient red flag symptoms of systemic infection that require urgent medical attention. Patient will otherwise follow-up in the wound center in 1 week. Patient is seeking wound clearance for a bladder mesh surgery from her TELEPHONE SERVICES SALES REPRESENTATIVE, from a wound standpoint she is stable and cleared. Did recommend that she obtain clearance from her maintenance service supervisor and PCP as well. This note was generated with [employer] dictation software. It may contain incorrect words, spelling, and punctuation that were not noted in checking the note before signing. Code Visit [id number]: [id number] Galina subq tissue 20 sq cm/<
== END 2018-02-27 23:59 ==
LOC: WC 14:30
PROVIDERS: Family Provider Nurse Practitioner; PCP Nurse Practitioner; Visit Provider Nurse Practitioner Family
DX: E11.622 Type 2 diabetes mellitus with other skin ulcer (principal); E11.51 Type 2 diabetes mellitus with diabetic peripheral angiopathy without gangrene; R09.89 Other specified symptoms and signs involving the circulatory and respiratory systems; I89.0 Lymphedema, not elsewhere classified; E66.9 Obesity, unspecified; Z68.36 Body mass index [BMI] 36.0-36.9, adult; L97.822 Non-pressure chronic ulcer of other part of left lower leg with fat layer exposed; E11.22 Type 2 diabetes mellitus with diabetic chronic kidney disease; I12.9 Hypertensive chronic kidney disease with stage 1 through stage 4 chronic kidney disease, or unspecified chronic kidney disease; N18.9 Chronic kidney disease, unspecified; F32.9 Major depressive disorder, single episode, unspecified; I25.10 Atherosclerotic heart disease of native coronary artery without angina pectoris; I48.0 Paroxysmal atrial fibrillation; M06.9 Rheumatoid arthritis, unspecified
CPT/HCPCS: 11042; 11045

== ENCOUNTER 2018-02-24 01:15 | Inpatient (IN) | payer MEDICARE, SELFPAY ==
[2016-12-05 15:47] VITALS: BMI 35.6
[2018-02-24] VITALS (22 sets, daily range): BP systolic 116–175; BP diastolic 42–80; PULSE 66–90; RESP 16–30; TEMP 36.8–38.7; O2SAT 93–98; BMI 47.5; BMI 37.5
--- NOTE | 2018-02-24 01:48 | RAD_ITS ---
STUDY: X-RAY CHEST REASON FOR EXAM: Female, 72 years old. Cough and fever. TECHNIQUE: AP portable chest. COMPARISON: December 25, 2017. October 03, 2017. April 01, 2017. FINDINGS: The lungs are clear and expanded. There is no demonstrated pleural abnormality. Normal size heart. Normal mediastinum. The right hilum is more prominent as compared to the prior studies suggestive of hilar lymphadenopathy. Normal visualized pulmonary arteries. Atherosclerotic calcification of the aortic arch. Normal visualized thoracic spine. Normal visualized ribs, clavicles, and shoulders. There is no demonstrated abnormality of the visualized soft tissue structures of the upper abdomen. RAD/Chest 1 View (Portable) IMPRESSION: Right hilar enlargement. Correlate with CT chest with contrast if not contraindicated. Electronically Signed: Reynaldo Dozier MD at 2:36 EDT , Service support ,
[2018-02-24] MEDS: Ondansetron 4 MG/2 ML Vial IV (02:02)
[2018-02-24 02:04] LABS: Absolute Lymphocyte Count 2.17 X10^3/ul (0.83-4.51); Absolute Neutrophil Count 21.9 X10^3/uL (2.0-7.7); Basophil# 0.03 X10^3/uL; Basophil% 0.1 % (0-1); Eosinophil# 0.22 X10^3/uL; Eosinophils% 0.9 % (0-5); Hematocrit 29.8 % (37-47); Lymphocyte # 2.17 X10^3/ul (4.0); Lymphocyte % 8.5 % (19-41); Mean Corp Hgb Conc 30.2 g/gl (32-36); Mean Corpuscular Hgb 26.9 pg (27.0-32.0); Mean Corpuscular Volume 89.2 fL (81-99); Mean Platelet Vol. 10.4 fl (6.2-12.0); Monocyte# 1.13 X10^3/uL; Monocyte% 4.4 % (0-10); Neutrophil # 21.93 X10^3/uL (2.7-7.7); Neutrophil % 85.7 % (47-70); Platelet Count 216 K/mm3 (150-450); RBC Distribution Width CV 17.2 % (11.6-14.6); RBC Distribution Width SD 56.3 fl (35.1-43.9); Red Blood Count 3.34 M/mm3 (4.2-5.4); White Blood Count 25.6 K/mm3 (4.4-11.0)
[2018-02-24 02:05] LABS: Differential Indicated SCAN CRITERIA MET; POSITIVE COUNT NO; POSITIVE DIFFERENTIAL YES; POSITIVE MORPHOLOGY NO
[2018-02-24 02:19] LABS: AST(SGOT) 17 U/L (15-37); Alanine Aminotransfer ALT/SGPT 13 U/L (13-56); Albumin, Serum 2.8 g/dL (3.2-5.0); Alkaline Phosphatase 120 U/L (45-117); Anion Gap 10 (5-15); BUN 45 mg/dL (7-18); Bilirubin, Direct 0.18 mg/dL (0.00-0.30); Chloride 107 mmol/L (98-107); EST Glomerular Filtration Rate 29 mL/min (>60); Est Glom Filt Rate - Afr Amer 36 mL/min (>60); Estimated Creatinine Clearance 22.67 ml/min; Globulin 4.2 g/dL (2.2-4.2); Glucose 185 mg/dL (74-106); Lipase 187 U/L (73-393); Sodium Level 139 mmol/L (136-145)
--- NOTE | 2018-02-24 02:37 | ED.DCSUM_ITS ---
- ER Visit Summary Date of Service: 02/24/18 Chief Complaint: [] Nausea and vomiting with possible left leg infection History of Present Illness: The patient is a 72 F presents with nausea and vomiting started 3 hours prior to coming in. 5-10 episodes of vomiting. She had 4 loose bowel movements as well. No bad food exposures no sick contacts or recent antibiotics. She has chills. Her daughter noticed today that her left leg was more red than it is at baseline. She is a chronic wound that is healing in the left inner ankle. Her last cellulitis of this area was back in November and she was admitted and discharged and finished her antibiotics with healing of this area. Physical Examination: Vital signs reviewed General: Well-nourished well-developed Head: Normocephalic atraumatic Eyes: Pupils equal round and reactive to light extraocular movements intact ENT: TMs clear no hemotympanum no trauma Neck: Nontender full range of motion Cardiovascular: Regular rate rhythm no murmurs normal S1-S2 Respiratory: No distress clear to auscultation bilaterally chest nontender Abdomen: Soft nontender nondistended normal bowel sounds no masses Back: Nontender no CVA tenderness Extremities: Shiny with no significant wound. She has very slight breakdown on the inner ankle skin. She has warmth and redness of the left ankle and chin consistent with a cellulitis. Skin: Normal color no trauma Neuro alert oriented cranial nerves II through XII intact normal strength sensation reflexes Test Results: [] Emergency Department Course and Treatment: [] CBC shows a white count 25.6. Hemoglobin 9.0. Chemistries normal except glucose 185 creatinine 1.8 liver function tests alk phos 120 lactate pending blood cultures pending. Patient given IV fluids Zofran and vancomycin. Has recurrent cellulitis. She spiked a temperature here 101.7 throughout her stay. Given oral Tylenol. She will be admitted. Treatment Plan: [] Disposition: [] Impression: [] Left lower leg cellulitis Sepsis secondary to cellulitis This note was generated with [employer] dictation software. It may contain incorrect words, spelling, and punctuation that were not noted in review of the chart prior to signing ED Disposition - Plan for ED Patient: Chief Complaint: Cellulitis Referrals: Sonja Feliciano [Primary Care Provider] -
[2018-02-24] MEDS: Acetaminophen 325 MG Tablet 650 MG PO (02:56)
--- NOTE | 2018-02-24 03:40 | NURSING ---
LACTIC ACID OF 2.[address] ESTEVEZ.
[2018-02-24 03:41] LABS: Lactic Acid 2.2 mmol/L (0.4-2.0)
--- NOTE | 2018-02-24 03:49 | PCM.HP.STD ---
Problem List (1) Cellulitis Status: Acute Qualifiers: Site of cellulitis: extremity Site of cellulitis of extremity: lower extremity Laterality: left Qualified Code(s): L03.116 - Cellulitis of left lower limb (2) Sepsis Status: Acute (3) Nonhealing ulcer of left lower extremity with fat layer exposed Status: Resolved (4) Lymphedema Status: Chronic (5) PVD (peripheral vascular disease) Status: Chronic (6) CAD (coronary artery disease) Status: Chronic Qualifiers: Coronary Disease-Associated Artery/Lesion type: campo artery (7) Severe sepsis Status: Resolved (8) Paroxysmal atrial fibrillation Status: Chronic (9) DILCIA (acute kidney injury) Status: Resolved (10) UTI (urinary tract infection) Status: Resolved (11) S/P angioplasty with stent Status: Chronic Comment: EDGARDO to mid LAD 12/05/2016 (12) DM2 (diabetes mellitus, type 2) Status: Chronic Qualifiers: Chronic kidney disease stage: stage 4 (severe) (13) Dyslipidemia Status: Chronic (14) Depression Status: Chronic (15) HTN (hypertension) Status: Chronic Qualifiers: (16) Gout Status: Chronic (17) Type 2 diabetes mellitus with other circulatory complications Status: Chronic (18) Varicose veins of both lower extremities Status: Chronic (19) Chronic renal failure, stage 4 (severe) Status: Chronic (20) Chronic steroid use Status: Chronic (21) Morbid obesity with BMI of 45.0-49.9, adult Status: Chronic (22) Osteopenia Status: Chronic (23) Pulmonary hypertension Status: Chronic (24) Personal history of DVT (deep vein thrombosis) Status: Chronic (25) Presence of IVC filter Status: Chronic (26) Rheumatoid arthritis Status: Suspected Comment: she sees Dr. Wiggins and is on Plaquenil and Prednisone History of Present Illness Date of Admission: 02/24/18 Chief Complaint: nausea,vomiting, diarrhea sudden onset and asscoiated with Fever, chills, and redness of the LLE The patient is a 72 year old F with a past medical history of morbid obesity, diabetes mellitus type 2, hypertension, hyperlipidemia, depression, chronic renal failure stage III-IV, coronary artery disease with stent to the LAD in November 2016, pulmonary hypertension, gout, DVT/PE, IVC filter, possible RA, PAF, venous insufficiency of of the LE's and PVD who presented to the ED at [facility] on 02/24 c/o sudden onset of N/V/D at 10:30 PM on 02/23. This is associated with a fever of 102.3 at home and redness with increased warmth of the distal LLE. She has had multiple admissions to the hospital in the past for ulcerations of the LE's with frequent infections. She was last admitted to the hospital in November of 2017 for severe sepsis due to cellulitis. Review of the microbiology from past admissions shows she usually grows MSSA and strep. I can find no hx of an MRSA infection. Temperature in the ER was as high as 101.7 and the pulse rate at admission was 90 with a blood pressure of 175/80. Significant lab includes an elevated white blood cell count at 25.6 with 86% neutrophils. Hemoglobin is 9.0 and platelets are within normal limits. Electrolytes are normal and the BUN is 45 with a creatinine of 1.80 which is within her baseline. Lactic acid is elevated at 2.2. The LLE is deformed due to scarring from old ulcerations. There are no open lesions at the present time. There is increased Redness of the distal LLE and there is a marked increase in the warmth to touch. She received Vancomycin in the ED. She also has developed a cough since the N/V started and may have aspirated. The Chest XRAY shows and enlarged R hilum and there may be and infiltrate there. Past Medical History Past Medical History (Chronic Problems): Chronic Problems (Last Updated 01/18/18 @ 11:46 by MISTY Suh) Varicose veins of both lower extremities (Chronic) Chronic renal failure, stage 4 (severe) (Chronic) Chronic steroid use (Chronic) Morbid obesity with BMI of 45.0-49.9, adult (Chronic) Osteopenia (Chronic) Pulmonary hypertension (Chronic) Personal history of DVT (deep vein thrombosis) (Chronic) Presence of IVC filter (Chronic) Lymphedema (Chronic) PVD (peripheral vascular disease) (Chronic) CAD (coronary artery disease) (Chronic) Paroxysmal atrial fibrillation (Chronic) S/P angioplasty with stent (Chronic) EDGARDO to mid LAD 12/05/2016 DM2 (diabetes mellitus, type 2) (Chronic) Dyslipidemia (Chronic) Depression (Chronic) HTN (hypertension) (Chronic) Gout (Chronic) 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) Allergies cefepime HCl [From Maxipime] Allergy (Verified 02/24/18 01:20) Itching cephalexin monohydrate [From Keflex] Allergy (Verified 02/24/18 01:20) Hives clopidogrel [From Plavix] Allergy (Verified 02/24/18 01:20) Itching and hives all over hydromorphone HCl [From Dilaudid] Adverse Reaction (Verified 02/24/18 01:20) Itching Home Medications: Ambulatory Orders Medication Instructions Recorded Ergocalciferol [Vitamin D] 50,000 unit PO WESA 12/19/14 predniSONE tablet 5 mg PO DAILY 12/19/14 Allopurinol [Zyloprim] 300 mg PO DAILYCM 01/23/15 Simvastatin [Zocor] 40 mg PO QHS 12/03/16 Aspirin E.C. [Ecotrin] 81 mg PO DAILY@0800 #30 tab 12/05/16 Hydroxychloroquine [Plaquenil] 200 mg PO DAILYCM 12/25/17 Insulin Glargine,Hum.rec.anlog 10 unit SQ QHS 01/07/18 [Lantus] Tramadol HCl [Ultram] 50 mg PO PRN PRN 01/07/18 metoprolol tartrate 100 mg tablet 100 mg PO BID #180 tab 02/11/18 ferrous sulfate 325 mg (65 mg 325 mg PO BID tab 02/12/18 iron) tablet,delayed release Surgical History: angioplasty - LAD in November of 2016, hysterectomy, rotator cuff repair, - - GFF. I/D right toe, skin grafts BLE Psychiatric History: Depression TRANSACTION ADVISORY SERVICES MANAGER History: No pertinent TRANSACTION ADVISORY SERVICES MANAGER history Lives: With Family - with her dtr Smoking Status: Never smoker Tobacco Use: Non-smoker Alcohol: Rare Drugs: None - *Family History Paternal History Items: Diabetes Maternal History Items: Diabetes, Hypertension Review of Systems Constitutional: Reports: Anorexia, Chills, Fever, Malaise Eyes: Denies: Vision Change HEENT: Denies: Head Aches, Sinus Congestion, Sinus Drainage Cardiovascular: Denies: Chest Pain, Light Headedness, Orthopnea, Palpitations, Syncope Respiratory: Reports: Cough - this developed after she started vomiting. Denies: Shortness of Breath Gastrointestinal: Reports: Diarrhea, Nausea, Vomiting. Denies: Abdominal Pain Genitourinary: Denies: Dysuria Musculoskeletal: Reports: Leg Pain Skin: Reports: - - multiple scars and deformities of the legs due to ulcerations in the past and infections. Denies: Jaundice, Wounds Neurological: Denies: Change in Speech, Slurred speech, Seizures Psychiatric: Reports: Depression. Denies: Suicidal Ideations Endocrine: Denies: Change in Body Habitus Hematologic/ Lymphatic: Reports: Hx of blood clot VTE Information - Inpt Only VTE Present on Admission: No VTE Mechan Device Prophylaxis: SCD's, Knee High DANIEL Hose VTE Pharm Prophylaxis ordered?: Yes Patient Problems: Active and Suspected Problems (Last Updated 01/18/18 @ 11:46 by MISTY Suh) Cellulitis (Acute) Sepsis (Acute) Rheumatoid arthritis (Suspected) she sees Dr. Wiggins and is on Plaquenil and Prednisone - Physical Exam General: Alert, Cooperative, Well developed, Well nourished, - - she looks ill...has an emesis bag in front of her and she is pale and listless HEENT: Atraumatic, PERRLA, EOMI Oral: No Gingival or Mucosal Lesions/ Ulcerations, Dry Mucosa Neck: Supple, No JVD, No Nodes, No Nuchal Rigidity, Trachea Midline Lungs: Clear to auscultation, No rhonchi, No wheeze, No rales, Diminished Cardiovascular: Regular rate, Regular Rhythm, Normal S1, Normal S2, No murmurs, No Ectopic Activity, No rub noted, No Gallop Abdomen: Soft, Non Tender, Hypoactive Bowel Sounds, Obese Extremities: No clubbing, No cyanosis, Edema - of both LE's in a patchy distribution due to multiple healed ulcerations and scarring with resultant deformity Skin: No rashes, No breakdown, - - the distal LLE is reddened and very wam to touch. There is some dry scab on the medial posterior LLE about mid calf Musculoskeletal: Arthritic Changes Neurological: Cranial nerves II-XII grossly intact, Neuro grossly intact Psych/Mental Status: Normal Affect, Appropriate Vital Signs Temp Pulse Resp BP Pulse Ox 101.7 F H 90 16 148/47 H 98 02/24/18 02:14 02/24/18 01:17 02/24/18 01:17 02/24/18 02:50 02/24/18 01:17 Weight: 260 lb Body Mass Index (BMI) 47.5 Finger Stick Blood Glucose 139 Laboratory Tests Past 24 Hrs 02/24/18 02/24/18 02/24/18 01:55 01:55 02:40 WBC 25.6 H RBC 3.34 L Hgb 9.0 L Hct 29.8 L MCV 89.2 MCH 26.9 L MCHC 30.2 L RDW 17.2 H RDW Differential 56.3 H Plt Count 216 MPV 10.4 Immature Gran % (Auto) 0.400 Neut % (Auto) 85.7 H Lymph % (Auto) 8.5 L Bowman % (Auto) 4.4 Eos % (Auto) 0.9 Baso % (Auto) 0.1 Absolute Neuts (auto) 21.9 H Absolute Lymphs (auto) 2.17 Total Counted Not Reportable Sodium 139 Potassium 4.0 Chloride 107 Carbon Dioxide 22.0 Anion Gap 10 BUN 45 H Creatinine 1.80 H Estim Creat Clear Calc 22.67 Est GFR (MDRD) Af Amer 36 L Est GFR (MDRD) Non-Af 29 L BUN/Creatinine Ratio 25.0 H Glucose 185 H Lactic Acid 2.2 H Calcium 9.0 Total Bilirubin 0.50 Direct Bilirubin 0.18 AST 17 ALT 13 Alkaline Phosphatase 120 H Total Protein 7.0 Albumin 2.8 L Globulin 4.2 Lipase 187 Assessment/Plan Active and Suspected Problems (Last Updated 01/18/18 @ 11:46 by MISTY Suh) Cellulitis (Acute) Sepsis (Acute) Rheumatoid arthritis (Suspected) she sees Dr. Wiggins and is on Plaquenil and Prednisone Impressions 1. severe sepsis due to cellulitis of the LLE. Given IV Vancomycin in the ER and will continue although she has no hx of MRSA at this institution. Blood cultures done in the ER. No wound to culture. 2. new cough after vomiting started - possible aspiration. Will add Levaquin to the Vancomycin....she is allergic to Cephalosporins and gets hives. Start IS. Repeat the CXR in 24-48 hour 3. DM II 4. Hypertension 5. Hyperlipidemia 6. Chronic renal failure stage III-IV 7. Gout 8. Anemia 9. Coronary artery disease with history of PTCA/EDGARDO to LAD in November 2016 10. History of pulmonary hypertension 11. History of DVT/submassive pulmonary embolism in 2008 and got IV lytic therapy and now has an IVC filter 12. Presence of IVC filter 13. Morbid obesity 14. Paroxysmal atrial fibrillation 15. Venous insufficiency bilateral lower extremities Vanco and Levaquin ordered Will check an ESR and CRP Blood cultures drawn in the ED No wounds to culture SCD, DANIEL and Heparin for DVT prophylaxis Increase the Prednisone to 5 mg PO BID due to the increased stress associated with severe sepsis Hydrate and recheck the lab on 02/25 Consult pharmacy to dose the Vancomycin BS's AC and HS with SSI coverage and Levemir 10 units at HS....last HGBA1C is November was 6.3%. Code Visit Inpatient E&M: 41775 Init Hosp L3
[2018-02-24] MEDS: LORazepam 2 MG/ML Syringe 0.5 MG IV (04:05)
--- NOTE | 2018-02-24 05:22 | PCM.RX.CS ---
Consult Pharmacy has been consulted to manage selected antiobiotic: Vancomycin Type of Consult: New start Suspected Infection: Sepsis Prior Doses of Antibiotics Received/Current Regimen: Medications Discontinued Medications Vancomycin HCl 1,750 mg/ (Sodium Chloride) 535 mls @ 250 mls/hr IV X1 ONE Stop: 02/24/18 04:33 Last Admin: 02/24/18 02:56 Dose: 250 mls/hr Labs: Sodium 139 mmol/L (136-145) 02/24/18 01:55 Potassium 4.0 mmol/L (3.5-5.1) 02/24/18 01:55 Chloride 107 mmol/L (98-107) 02/24/18 01:55 Carbon Dioxide 22.0 mmol/L (21.0-32.0) 02/24/18 01:55 Anion Gap 10 (5-15) 02/24/18 01:55 BUN 45 mg/dL (7-18) H 02/24/18 01:55 Creatinine 1.80 mg/dL (0.55-1.02) H 02/24/18 01:55 Est GFR (MDRD) Af Amer 36 mL/min (>60) L 02/24/18 01:55 Est GFR (MDRD) Non-Af 29 mL/min (>60) L 02/24/18 01:55 BUN/Creatinine Ratio 25.0 RATIO (10-20) H 02/24/18 01:55 Glucose 185 mg/dL (74-106) H 02/24/18 01:55 Weight used for dosin kg Estimated Creatinine Clearance: 35 Goal Trough: 15-20 mcg/mL Pharmacy Plan for Drug Dosing: Pharmacy Service will continue to monitor and adjust dosing as required. Follow-Up Labs: Trough Vancomycin Labs to be done on [date and time ordered]: 02/27/18 @6131
[2018-02-24 05:54] LABS: Erythrocyte Sedimentation Rate 43 mm/hr (0-30)
[2018-02-24] MEDS: levoFLOXacin IV 500 MG/100 ML BAG 100 MG IV (05:59)
[2018-02-24] MEDS: 0.9% NaCl Peripheral Flush Adult/Peds IV (06:22)
[2018-02-24 06:31] LABS: Magnesium 1.9 mg/dL (1.6-2.6)
[2018-02-24 06:46] LABS: Bedside Glucose 141 mg/dL (70-110)
[2018-02-24 06:47] LABS: Ferritin 64 ng/mL (8-252)
[2018-02-24 06:48] LABS: Reflex Lactate? Y
[2018-02-24 08:07] LABS: Lactic Acid 0.9 mmol/L (0.4-2.0)
[2018-02-24] MEDS: 0.9% Normal Saline 1,000 ML 100 ML IV ×3 (08:10→22:29)
--- NOTE | 2018-02-24 08:20 | NURSING ---
0745 Notified MAL Irvin wound nurse verbally about patient wounds to left lower extremity.
[2018-02-24] MEDS: Metoprolol Tartrate 100 MG Tablet PO ×2 (09:26→22:30)
[2018-02-24] MEDS: Aspirin E.C. 81 MG Tablet PO (09:27)
[2018-02-24] MEDS: Hydroxychloroquine 200 MG Tablet PO ×2 (09:27→17:00)
[2018-02-24] MEDS: Allopurinol 300 MG Tablet PO (09:27)
[2018-02-24] MEDS: Ferrous Sulfate 325 MG Tablet PO ×2 (09:27→17:00)
[2018-02-24] MEDS: predniSONE 5 MG Tablet PO ×2 (09:27→17:00)
[2018-02-24 12:25] LABS: Bedside Glucose 153 mg/dL (70-110)
--- NOTE | 2018-02-24 13:48 | NURSING ---
wound photo: left posterior/medial lower leg
--- NOTE | 2018-02-24 16:00 | PCM.PROGNOTE ---
Patient Problems: Active and Suspected Problems (Last Reviewed 02/24/18 @ 04:16 by Dusty Tomlinson DO) Cellulitis (Acute) Sepsis (Acute) Rheumatoid arthritis (Suspected) she sees Dr. Wiggins and is on Plaquenil and Prednisone Subjective: She feels better today. No leg pain. N/V subsided. T-max 100.3. She still has dry cough. No chest pain. - Physical Exam General: Alert, Oriented x3, Cooperative HEENT: Atraumatic Oral: Moist Mucosa Neck: Supple, No JVD Lungs: Clear to auscultation, Normal air movement, No rhonchi, No wheeze, No rales Cardiovascular: Regular rate, Regular Rhythm, Normal S1, Normal S2, Murmur - 2/6 JAVAD Abdomen: Bowel Sounds Present, Soft, Non Tender, Non-Distended, No Hepato-splenomegaly Extremities: No clubbing, No cyanosis, Edema - Trace edema bilaterally. Chronic skin change from stasis dermatitis. Skin: - - See above. Musculoskeletal: No Tenderness to Palpation of Joints or Extremities, No Muscle Wasting Lymphatic: No Cervical, Supraclavicular, or Inguinal Adenopathy Neurological: Cranial nerves II-XII grossly intact, Neuro grossly intact Psych/Mental Status: Normal Affect Vital Signs Temp Pulse Resp BP Pulse Ox 99.2 F H 66 20 H 116/52 L 98 02/24/18 14:10 02/24/18 15:06 02/24/18 14:10 02/24/18 14:10 02/24/18 14:10 Oxygen Flow Rate (L/min) 2 Oxygen Delivery Method Nasal Cannula Weight: 205 lb 0.478 oz Body Mass Index (BMI) 37.5 Intake and Output for Last 24 Hours 02/22/18 02/23/18 02/24/18 23:59 23:59 23:59 Intake Total 1437 / 1437 Balance 1437 / 1437 Laboratory Tests Past 24 Hrs 02/24/18 07:25 Lactic Acid 0.9 POC Glucose 02/24/18 02/24/18 11:59 06:43 POC Glucose 153 H 141 H Diagnostic Data Chest X-Ray 02/24/18 01:48 IMPRESSION: Right hilar enlargement. Correlate with CT chest with contrast if not contraindicated. Electronically Signed: Reynaldo Dozier MD at 2:36 EDT , Service support , Medical Necessity - Tobacco Use Smoking Status: Never smoker Tobacco Use: Non-smoker Assessment/Plan Active and Suspected Problems (Last Reviewed 02/24/18 @ 04:16 by Dusty Tomlinson DO) Cellulitis (Acute) Sepsis (Acute) Rheumatoid arthritis (Suspected) she sees Dr. Wiggins and is on Plaquenil and Prednisone Patient is a 72 years old female with recurrent cellulitis of legs with underling stasis dermatitis from venous insufficiency and chronic wound, admitted on 02/24/18 for cellulitis of left lower leg. She had sudden onset of fever, chills, nausea, vomiting, and diarrhea, along with erythema of left distal leg. Her last admission was 11/2017 with severe sepsis associated with cellulitis with MSSA. Temp was 101.7 in the ED, with WBC 25.6. Lactic acid was 2.1. Blood pressure and heart rate were within normal limits, but had tachypnea with rate 30 initially. She was also found to have right hilar enlargement, concern of underling pneumonia. #1 Severe sepsis with underling cellulitis of left lower leg. Started on vancomycin and levofloxacin empirically to cover both skin infection and possible pneumonia. IVF resuscitation for sepsis. She is hemodynamically stable. #2 Abnormal CXR. There is questionable area in right hilum with development of cough. CT of chest without contrast today to further evaluate. Antibiotics as above. #3 CKD III. Creatinine 1.8, which is at baseline. Monitor BMP. #4 DM II. Continue Levemir 10 units HS, and cover with sliding scale aspart insulin. #5 history of PE/DVT, s/p IVC filter. #6 Paroxysmal atrial fibrillation. She is in sinus rhythm, currently on metoprolol. Continue. She may benefit from anticoagulation for stroke prophylaxis. I will defer this to cardiology as outpatient. Meanwhile, continue aspirin. #7 Coronary artery disease. History of stent to LAD. Continue aspirin, statin, and beta-reid. #8 rheumatoid arthritis. Continue Plaquenil and prednisone. VTE prophylaxis: Heparin SQ. GI prophylaxis: ppi po. Patient is full code. Disposition: home in 2 to 3 days. Code Visit Inpatient E&M: 89408 Subs Hosp L3
--- NOTE | 2018-02-24 16:03 | PN_ITS ---
Patient Problems: Active and Suspected Problems (Last Reviewed 02/24/18 @ 04:16 by Dusty Tomlinson DO) Cellulitis (Acute) Sepsis (Acute) Rheumatoid arthritis (Suspected) she sees Dr. Wiggins and is on Plaquenil and Prednisone Subjective: She feels better today. No leg pain. N/V subsided. T-max 100.3. She still has dry cough. No chest pain. - Physical Exam General: Alert, Oriented x3, Cooperative HEENT: Atraumatic Oral: Moist Mucosa Neck: Supple, No JVD Lungs: Clear to auscultation, Normal air movement, No rhonchi, No wheeze, No rales Cardiovascular: Regular rate, Regular Rhythm, Normal S1, Normal S2, Murmur - 2/ 6 JAVAD Abdomen: Bowel Sounds Present, Soft, Non Tender, Non-Distended, No Hepato- splenomegaly Extremities: No clubbing, No cyanosis, Edema - Trace edema bilaterally. Chronic skin change from stasis dermatitis. Skin: - - See above. Musculoskeletal: No Tenderness to Palpation of Joints or Extremities, No Muscle Wasting Lymphatic: No Cervical, Supraclavicular, or Inguinal Adenopathy Neurological: Cranial nerves II-XII grossly intact, Neuro grossly intact Psych/Mental Status: Normal Affect Vital Signs Temp Pulse Resp BP Pulse Ox 99.2 F H 66 20 H 116/52 L 98 02/24/18 14:10 02/24/18 15:06 02/24/18 14:10 02/24/18 14:10 02/24/18 14:10 Oxygen Flow Rate (L/min) 2 Oxygen Delivery Method Nasal Cannula Weight: 205 lb 0.478 oz Body Mass Index (BMI) 37.5 Intake and Output for Last 24 Hours 02/22/18 02/23/18 02/24/18 23:59 23:59 23:59 Intake Total 1437 / 1437 Balance 1437 / 1437 Laboratory Tests Past 24 Hrs 02/24/18 07:25 Lactic Acid 0.9 POC Glucose 02/24/18 02/24/18 11:59 06:43 POC Glucose 153 H 141 H Diagnostic Data Chest X-Ray 02/24/18 01:48 IMPRESSION: Right hilar enlargement. Correlate with CT chest with contrast if not contraindicated. Electronically Signed: Reynaldo Dozier MD at 2:36 EDT , Service support , Medical Necessity - Tobacco Use Smoking Status: Never smoker Tobacco Use: Non-smoker Assessment/Plan Active and Suspected Problems (Last Reviewed 02/24/18 @ 04:16 by Dusty Tomlinson DO) Cellulitis (Acute) Sepsis (Acute) Rheumatoid arthritis (Suspected) she sees Dr. Wiggins and is on Plaquenil and Prednisone Patient is a 72 years old female with recurrent cellulitis of legs with underling stasis dermatitis from venous insufficiency and chronic wound, admitted on 02/24/18 for cellulitis of left lower leg. She had sudden onset of fever, chills, nausea, vomiting, and diarrhea, along with erythema of left distal leg. Her last admission was 11/2017 with severe sepsis associated with cellulitis with MSSA. Temp was 101.7 in the ED, with WBC 25.6. Lactic acid was 2.1. Blood pressure and heart rate were within normal limits, but had tachypnea with rate 30 initially. She was also found to have right hilar enlargement, concern of underling pneumonia. #1 Severe sepsis with underling cellulitis of left lower leg. Started on vancomycin and levofloxacin empirically to cover both skin infection and possible pneumonia. IVF resuscitation for sepsis. She is hemodynamically stable. #2 Abnormal CXR. There is questionable area in right hilum with development of cough. CT of chest without contrast today to further evaluate. Antibiotics as above. #3 CKD III. Creatinine 1.8, which is at baseline. Monitor BMP. #4 DM II. Continue Levemir 10 units HS, and cover with sliding scale aspart insulin. #5 history of PE/DVT, s/p IVC filter. #6 Paroxysmal atrial fibrillation. She is in sinus rhythm, currently on metoprolol. Continue. She may benefit from anticoagulation for stroke prophylaxis. I will defer this to cardiology as outpatient. Meanwhile, continue aspirin. #7 Coronary artery disease. History of stent to LAD. Continue aspirin, statin, and beta-reid. #8 rheumatoid arthritis. Continue Plaquenil and prednisone. VTE prophylaxis: Heparin SQ. GI prophylaxis: ppi po. Patient is full code. Disposition: home in 2 to 3 days. Code Visit Inpatient E&M: 07325 Subs Hosp L3
--- NOTE | 2018-02-24 16:04 | CT_ITS ---
STUDY: CT CHEST WITHOUT CONTRAST REASON FOR EXAM: Female, 72 years old. Cough, sepsis RADIATION DOSAGE (If Supplied By Facility): CTDIvol = ( 19.98 ) mGy, DLP = ( 563.32 ) mGycm TECHNIQUE: Transaxial imaging of the chest was performed without intravenous contrast material. Sagittal and coronal reconstructions were performed. Individualized dose optimization techniques were used for this CT. COMPARISON: Chest radiograph from the same day; chest CT report dated February 08, 2010 FINDINGS: There are a few benign calcified granulomas in the right lung base. There are very minimal patchy airspace opacities in the posterior segment of the right upper lobe, lateral segment of the right middle lobe, and posterior segment of the left upper lobe. There are small areas of patchy airspace opacity scattered in the right lower lobe, most pronounced in the superior segment. There are small areas of patchy airspace opacities scattered in the left lower lobe. There is no demonstrated pleural abnormality. The heart is normal in size. There are calcifications of the coronary arteries. The mediastinum is unremarkable. The hilar regions are unremarkable allowing for lack of contrast in the vessels. There is prominence of the pulmonary hilar arteries without peripheral pulmonary vascular congestion, suggesting pulmonary hypertension. There are moderate vascular calcifications scattered in the thoracic aorta. There are moderate degenerative changes in the visualized spine. There are degenerative changes in both shoulders. There are cystic changes in the upper pole of the right kidney. CT/Chest without Contrast IMPRESSION: There are scattered areas of patchy airspace opacity in both lungs, most pronounced in the left lower lobe. The findings may represent mild diffuse infection. There is no pleural effusion. The pulmonary arteries are prominent, suggesting pulmonary artery hypertension. This likely accounted for the right hilar prominence on chest radiograph. There is no definite lymphadenopathy allowing for lack of contrast in the vessels. Cystic change in the upper pole of the right kidney is incompletely visualized and is either due to cysts or hydronephrosis. Electronically Signed: Tesha Ritter MD at 17:08 EDT Tel Direct: [phone], Service support ,
[2018-02-24 17:16] LABS: Bedside Glucose 109 mg/dL (70-110)
[2018-02-24] MEDS: Atorvastatin Calcium 20 MG Tablet PO (22:30)
[2018-02-24 22:35] LABS: Bedside Glucose 102 mg/dL (70-110)
[2018-02-25] VITALS (13 sets, daily range): BP systolic 142–162; BP diastolic 69–83; PULSE 59–72; RESP 16; TEMP 36.5–36.9; O2SAT 95–100
[2018-02-25 06:04] LABS: Hematocrit 24.9 % (37-47); Hemoglobin 7.5 g/dl (12.0-15.0); Mean Corp Hgb Conc 30.1 g/gl (32-36); Mean Corpuscular Hgb 27.4 pg (27.0-32.0); Mean Corpuscular Volume 90.9 fL (81-99); Mean Platelet Vol. 10.5 fl (6.2-12.0); Platelet Count 181 K/mm3 (150-450); RBC Distribution Width CV 16.9 % (11.6-14.6); RBC Distribution Width SD 53.8 fl (35.1-43.9); Red Blood Count 2.74 M/mm3 (4.2-5.4); White Blood Count 11.9 K/mm3 (4.4-11.0)
[2018-02-25 06:09] LABS: Scan Indicated on CBC? Y/N NO
[2018-02-25 06:25] LABS: Anion Gap 8 (5-15); BUN 32 mg/dL (7-18); BUN/Creat Ratio 19.9 RATIO (10-20); Calcium,Total 8.2 mg/dL (8.5-10.1); Chloride 111 mmol/L (98-107); Creatinine, Serum 1.61 mg/dL (0.55-1.02); EST Glomerular Filtration Rate 34 mL/min (>60); Est Glom Filt Rate - Afr Amer 41 mL/min (>60); Estimated Creatinine Clearance 25.35 ml/min; Glucose 73 mg/dL (74-106); Potassium 4.1 mmol/L (3.5-5.1); Sodium Level 140 mmol/L (136-145)
[2018-02-25 06:50] LABS: Bedside Glucose 78 mg/dL (70-110)
[2018-02-25] MEDS: Ferrous Sulfate 325 MG Tablet PO ×2 (08:13→16:17)
[2018-02-25] MEDS: Aspirin E.C. 81 MG Tablet PO (08:13)
[2018-02-25] MEDS: Hydroxychloroquine 200 MG Tablet PO ×2 (08:13→16:17)
[2018-02-25] MEDS: Allopurinol 300 MG Tablet PO (08:13)
[2018-02-25] MEDS: predniSONE 5 MG Tablet PO ×2 (08:13→16:17)
--- NOTE | 2018-02-25 09:27 | CASEMGMT ---
CHART REVIEW: NIXON Strata: 3 Adm Dx: Sepsis; Cellulitis; Possible Aspiration Insurance: [employer] Tracking Status: IP ELY SHOSHONE: Per physician documentation, the patient is a 72 year old F with a past medical history of morbid obesity, diabetes mellitus type 2, hypertension, hyperlipidemia, depression, chronic renal failure stage III-IV, coronary artery disease with stent to the LAD in November 2016, pulmonary hypertension, gout, DVT/PE, IVC filter, possible RA, PAF, venous insufficiency of of the LE's and PVD who presented to the ED at [facility] on 02/24 c/o sudden onset of N/V/D at 10:30 PM on 02/23. This is associated with a fever of 102.3 at home and redness with increased warmth of the distal LLE. She has had multiple admissions to the hospital in the past for ulcerations of the LE's with frequent infections. She was last admitted to the hospital in November of 2017 for severe sepsis due to cellulitis. Review of the microbiology from past admissions shows she usually grows MSSA and strep. Temperature in the ER was as high as 101.7 and the pulse rate at admission was 90 with a blood pressure of 175/80. Significant lab includes an elevated white blood cell count at 25.6 with 86% neutrophils. Hemoglobin is 9.0 and platelets are within normal limits. Electrolytes are normal and the BUN is 45 with a creatinine of 1.80 which is within her baseline. Lactic acid is elevated at 2.2. The LLE is deformed due to scarring from old ulcerations. There are no open lesions at the present time. There is increased Redness of the distal LLE and there is a marked increase in the warmth to touch. She received Vancomycin in the ED. She also has developed a cough since the N/V started and may have aspirated. The Chest XRAY shows an enlarged R hilum which may demonstrate infiltrate. Patient will be treated with Vanco and Levaquin. Will check an ESR, CRP. Increase prednisone. Per therapy and physician documentation, prior to recent admit pt reported that she ambulated with use of a Quad Cane at a Mod I level. Mod I with completion of her basic self care. Pt still drives stated mainly a household ambulator uses ww if going out of house. Pt uses electric scooters in stores. Stated her and her daughter share meal prep and laundry. Patient was incontinent of urine this admission, and required moderate assistance to complete self-care. Patient's goal is to return home when medically ready for discharge from the hospital. PT/OT recommending further skilled therapy. Transition Planning/Care Coordination: The patient is seen at the wound center for chronic cellulitis, she is established with [facility], patient is established with Dr. Brown for rheumatology, and is established with Sonja Feliciano for primary care. MAL BEY notes PT/OT recs for further skilled therapy. MAL BEY will meet with patient and patient's dtr to discuss options. MAL BEY notes patient does have hx of DM II, last A1C, 01/07/18, 6.3. Patient does attend scheduled health care appnts as scheduled. The patient has had 3 hospital admission in the past year and 2 of those in the last 6 months; 2 admissions for sepsis and one for UTI. Disposition Plan: TBD
--- NOTE | 2018-02-25 09:50 | CASEMGMT ---
MAL BEY met with patient to discuss transition planning. D/W patient therapy recommendation for continued therapy services as an outpatient. The patient reports she has bad knees and a bad bladder. Patient states once I get my bladder fixed, I can get my knees fixed, and then I'll be a new woman. MAL BEY educates patient to [facility] services, as patient has never had these services in the past. The patient thanks this MAL BEY for the information, but declines to initiate services at this time stating Right now, I just don't think I really need it. MAL BEY informs patient she can request these services after discharge, if she feels she need them after transitioning back to home. MAL BEY explains patient will need to follow-up with primary care, and would just need to let her primary care know of her need. Patient verbalizes understanding and again thanks this MAL BEY. Disposition Plan: Home with support of dtr and with follow-up plans in place. HARI Vela, RN-BC, CCM
[2018-02-25] MEDS: levoFLOXacin IV 250 MG/50 ML BAG 50 MG IV (10:00)
[2018-02-25] MEDS: Metoprolol Tartrate 100 MG Tablet PO ×2 (10:01→21:23)
[2018-02-25] MEDS: Famotidine 20 MG Tablet PO (10:01)
[2018-02-25] MEDS: 0.9% Normal Saline 1,000 ML 100 ML IV ×2 (11:33→21:23)
[2018-02-25 11:36] LABS: Bedside Glucose 134 mg/dL (70-110)
--- NOTE | 2018-02-25 13:12 | PCM.PROGNOTE ---
Patient Problems: Active and Suspected Problems (Last Reviewed 02/24/18 @ 04:16 by Dusty Tomlinson DO) Cellulitis (Acute) Sepsis (Acute) Rheumatoid arthritis (Suspected) she sees Dr. Wiggins and is on Plaquenil and Prednisone Subjective: She is feeling better. No pain in the legs, unchanged. She is afebrile x 24 hours. WBC is near normal to 11,000. - Physical Exam General: Alert, Oriented x3, Cooperative HEENT: Atraumatic Oral: Moist Mucosa Neck: Supple, No JVD Lungs: Clear to auscultation, Normal air movement, No rhonchi, No wheeze, No rales Cardiovascular: Regular rate, Regular Rhythm, Normal S1, Normal S2, Murmur - 2/6 JAVAD Abdomen: Bowel Sounds Present, Soft, Non Tender, Non-Distended, No Hepato-splenomegaly Extremities: No clubbing, No cyanosis, Edema - Trace edema bilaterally. Chronic skin change from stasis dermatitis. Deformity of left calf from previous infection. Small ulcerative lesion at lower calf, 1 cm, shallow. Skin: - - See above. Musculoskeletal: No Tenderness to Palpation of Joints or Extremities, No Muscle Wasting Lymphatic: No Cervical, Supraclavicular, or Inguinal Adenopathy Neurological: Cranial nerves II-XII grossly intact, Neuro grossly intact Psych/Mental Status: Normal Affect - Physical Exam Vital Signs Temp Pulse Resp BP Pulse Ox 97.7 F L 68 16 157/70 H 99 02/25/18 10:00 02/25/18 11:01 02/25/18 10:00 02/25/18 10:01 02/25/18 10:00 Oxygen Flow Rate (L/min) 2 Oxygen Delivery Method Room Air Weight: 205 lb 0.478 oz Body Mass Index (BMI) 37.5 Intake and Output for Last 24 Hours 02/23/18 02/24/18 02/25/18 23:59 23:59 23:59 Intake Total 2768 / 2768 1409 / 1409 Balance 2768 / 2768 1409 / 1409 Laboratory Tests Past 24 Hrs 02/25/18 02/25/18 05:40 05:40 WBC 11.9 H RBC 2.74 L Hgb 7.5 L Hct 24.9 L MCV 90.9 MCH 27.4 MCHC 30.1 L RDW 16.9 H RDW Differential 53.8 H Plt Count 181 MPV 10.5 Sodium 140 Potassium 4.1 Chloride 111 H Carbon Dioxide 21.0 Anion Gap 8 BUN 32 H Creatinine 1.61 H Estim Creat Clear Calc 25.35 Est GFR (MDRD) Af Amer 41 L Est GFR (MDRD) Non-Af 34 L BUN/Creatinine Ratio 19.9 Glucose 73 L Calcium 8.2 L POC Glucose 02/25/18 02/25/18 02/24/18 11:19 06:43 22:23 POC Glucose 134 H 78 102 02/24/18 16:53 POC Glucose 109 Diagnostic Data Chest X-Ray 02/24/18 01:48 IMPRESSION: Right hilar enlargement. Correlate with CT chest with contrast if not contraindicated. Electronically Signed: Reynaldo Dozier MD at 2:36 EDT , Service support , Chest CT 02/24/18 16:04 IMPRESSION: There are scattered areas of patchy airspace opacity in both lungs, most pronounced in the left lower lobe. The findings may represent mild diffuse infection. There is no pleural effusion. The pulmonary arteries are prominent, suggesting pulmonary artery hypertension. This likely accounted for the right hilar prominence on chest radiograph. There is no definite lymphadenopathy allowing for lack of contrast in the vessels. Cystic change in the upper pole of the right kidney is incompletely visualized and is either due to cysts or hydronephrosis. Electronically Signed: Tesha Ritter MD at 17:08 EDT Tel Direct: [phone], Service support , Medical Necessity - Tobacco Use Smoking Status: Never smoker Tobacco Use: Non-smoker Assessment/Plan Active and Suspected Problems (Last Reviewed 02/24/18 @ 04:16 by Dusty Tomlinson DO) Cellulitis (Acute) Sepsis (Acute) Rheumatoid arthritis (Suspected) she sees Dr. Wiggins and is on Plaquenil and Prednisone Patient is a 72 years old female with recurrent cellulitis of legs with underling stasis dermatitis from venous insufficiency and chronic wound, admitted on 02/24/18 for cellulitis of left lower leg. She had sudden onset of fever, chills, nausea, vomiting, and diarrhea, along with erythema of left distal leg. Her last admission was 11/2017 with severe sepsis associated with cellulitis with MSSA. Temp was 101.7 in the ED, with WBC 25.6. Lactic acid was 2.1. Blood pressure and heart rate were within normal limits, but had tachypnea with rate 30 initially. She was also found to have right hilar enlargement, concern of underling pneumonia. on 02/25, she is afebrile x 24 hours. No chest pain or cough. Erythema of leg receding. #1 Severe sepsis with underling cellulitis of left lower leg. Started on vancomycin and levofloxacin empirically to cover both skin infection and possible pneumonia. S/P IVF resuscitation for sepsis. She is hemodynamically stable. WBC on admission 25.6, trending down. Blood culture negative to date. #[address] of chest without contrast was done, showing bilateral patchy infiltrate, most pronounced in the LLL. Antibiotics as above. Await blood culture. #3 CKD III. Creatinine 1.6 to 1.8, at baseline. Monitor BMP. #4 DM II. Continue Levemir 10 units HS, and cover with sliding scale aspart insulin. #5 history of PE/DVT, s/p IVC filter. #6 Paroxysmal atrial fibrillation. She is in sinus rhythm, currently on metoprolol. Continue. She may benefit from anticoagulation for stroke prophylaxis. I will defer this to cardiology as outpatient. Meanwhile, continue aspirin. #7 Coronary artery disease. History of stent to LAD. Continue aspirin, statin, and beta-reid. #8 rheumatoid arthritis. Continue Plaquenil and prednisone. VTE prophylaxis: Heparin SQ. GI prophylaxis: ppi po. Patient is full code. Disposition: home in 1 to 2 days. Code Visit Inpatient E&M: 00618 Subs Hosp L2
--- NOTE | 2018-02-25 13:21 | PN_ITS ---
Patient Problems: Active and Suspected Problems (Last Reviewed 02/24/18 @ 04:16 by Dusty Tomlinson DO) Cellulitis (Acute) Sepsis (Acute) Rheumatoid arthritis (Suspected) she sees Dr. Wiggins and is on Plaquenil and Prednisone Subjective: She is feeling better. No pain in the legs, unchanged. She is afebrile x 24 hours. WBC is near normal to 11,000. - Physical Exam General: Alert, Oriented x3, Cooperative HEENT: Atraumatic Oral: Moist Mucosa Neck: Supple, No JVD Lungs: Clear to auscultation, Normal air movement, No rhonchi, No wheeze, No rales Cardiovascular: Regular rate, Regular Rhythm, Normal S1, Normal S2, Murmur - 2/ 6 JAVAD Abdomen: Bowel Sounds Present, Soft, Non Tender, Non-Distended, No Hepato- splenomegaly Extremities: No clubbing, No cyanosis, Edema - Trace edema bilaterally. Chronic skin change from stasis dermatitis. Deformity of left calf from previous infection. Small ulcerative lesion at lower calf, 1 cm, shallow. Skin: - - See above. Musculoskeletal: No Tenderness to Palpation of Joints or Extremities, No Muscle Wasting Lymphatic: No Cervical, Supraclavicular, or Inguinal Adenopathy Neurological: Cranial nerves II-XII grossly intact, Neuro grossly intact Psych/Mental Status: Normal Affect - Physical Exam Vital Signs Temp Pulse Resp BP Pulse Ox 97.7 F L 68 16 157/70 H 99 02/25/18 10:00 02/25/18 11:01 02/25/18 10:00 02/25/18 10:01 02/25/18 10:00 Oxygen Flow Rate (L/min) 2 Oxygen Delivery Method Room Air Weight: 205 lb 0.478 oz Body Mass Index (BMI) 37.5 Intake and Output for Last 24 Hours 02/23/18 02/24/18 02/25/18 23:59 23:59 23:59 Intake Total 2768 / 2768 1409 / 1409 Balance 2768 / 2768 1409 / 1409 Laboratory Tests Past 24 Hrs 02/25/18 02/25/18 05:40 05:40 WBC 11.9 H RBC 2.74 L Hgb 7.5 L Hct 24.9 L MCV 90.9 MCH 27.4 MCHC 30.1 L RDW 16.9 H RDW Differential 53.8 H Plt Count 181 MPV 10.5 Sodium 140 Potassium 4.1 Chloride 111 H Carbon Dioxide 21.0 Anion Gap 8 BUN 32 H Creatinine 1.61 H Estim Creat Clear Calc 25.35 Est GFR (MDRD) Af Amer 41 L Est GFR (MDRD) Non-Af 34 L BUN/Creatinine Ratio 19.9 Glucose 73 L Calcium 8.2 L POC Glucose 02/25/18 02/25/18 02/24/18 11:19 06:43 22:23 POC Glucose 134 H 78 102 02/24/18 16:53 POC Glucose 109 Diagnostic Data Chest X-Ray 02/24/18 01:48 IMPRESSION: Right hilar enlargement. Correlate with CT chest with contrast if not contraindicated. Electronically Signed: Reynaldo Dozier MD at 2:36 EDT , Service support , Chest CT 02/24/18 16:04 IMPRESSION: There are scattered areas of patchy airspace opacity in both lungs, most pronounced in the left lower lobe. The findings may represent mild diffuse infection. There is no pleural effusion. The pulmonary arteries are prominent, suggesting pulmonary artery hypertension. This likely accounted for the right hilar prominence on chest radiograph. There is no definite lymphadenopathy allowing for lack of contrast in the vessels. Cystic change in the upper pole of the right kidney is incompletely visualized and is either due to cysts or hydronephrosis. Electronically Signed: Tesha Ritter MD at 17:08 EDT Tel Direct: [phone], Service support , Medical Necessity - Tobacco Use Smoking Status: Never smoker Tobacco Use: Non-smoker Assessment/Plan Active and Suspected Problems (Last Reviewed 02/24/18 @ 04:16 by Dusty Tomlinson DO) Cellulitis (Acute) Sepsis (Acute) Rheumatoid arthritis (Suspected) she sees Dr. Wiggins and is on Plaquenil and Prednisone Patient is a 72 years old female with recurrent cellulitis of legs with underling stasis dermatitis from venous insufficiency and chronic wound, admitted on 02/24/18 for cellulitis of left lower leg. She had sudden onset of fever, chills, nausea, vomiting, and diarrhea, along with erythema of left distal leg. Her last admission was 11/2017 with severe sepsis associated with cellulitis with MSSA. Temp was 101.7 in the ED, with WBC 25.6. Lactic acid was 2.1. Blood pressure and heart rate were within normal limits, but had tachypnea with rate 30 initially. She was also found to have right hilar enlargement, concern of underling pneumonia. on 02/25, she is afebrile x 24 hours. No chest pain or cough. Erythema of leg receding. #1 Severe sepsis with underling cellulitis of left lower leg. Started on vancomycin and levofloxacin empirically to cover both skin infection and possible pneumonia. S/P IVF resuscitation for sepsis. She is hemodynamically stable. WBC on admission 25.6, trending down. Blood culture negative to date. #[address] of chest without contrast was done, showing bilateral patchy infiltrate, most pronounced in the LLL. Antibiotics as above. Await blood culture. #3 CKD III. Creatinine 1.6 to 1.8, at baseline. Monitor BMP. #4 DM II. Continue Levemir 10 units HS, and cover with sliding scale aspart insulin. #5 history of PE/DVT, s/p IVC filter. #6 Paroxysmal atrial fibrillation. She is in sinus rhythm, currently on metoprolol. Continue. She may benefit from anticoagulation for stroke prophylaxis. I will defer this to cardiology as outpatient. Meanwhile, continue aspirin. #7 Coronary artery disease. History of stent to LAD. Continue aspirin, statin, and beta-reid. #8 rheumatoid arthritis. Continue Plaquenil and prednisone. VTE prophylaxis: Heparin SQ. GI prophylaxis: ppi po. Patient is full code. Disposition: home in 1 to 2 days. Code Visit Inpatient E&M: 01717 Subs Hosp L2
[2018-02-25 17:06] LABS: Bedside Glucose 128 mg/dL (70-110)
[2018-02-25] MEDS: Atorvastatin Calcium 20 MG Tablet PO (21:23)
[2018-02-25 22:40] LABS: Bedside Glucose 186 mg/dL (70-110)
[2018-02-26] VITALS (15 sets, daily range): BP systolic 153–189; BP diastolic 68–78; PULSE 65–78; RESP 16–20; TEMP 36.5–37.2; O2SAT 95–100
[2018-02-26 06:11] LABS: Hematocrit 23.5 % (37-47); Hemoglobin 7.2 g/dl (12.0-15.0); Mean Corp Hgb Conc 30.6 g/gl (32-36); Mean Corpuscular Hgb 27.8 pg (27.0-32.0); Mean Corpuscular Volume 90.7 fL (81-99); Mean Platelet Vol. 10.7 fl (6.2-12.0); Platelet Count 184 K/mm3 (150-450); RBC Distribution Width CV 16.9 % (11.6-14.6); RBC Distribution Width SD 54.8 fl (35.1-43.9); Red Blood Count 2.59 M/mm3 (4.2-5.4); Scan Indicated on CBC? Y/N NO; White Blood Count 11.8 K/mm3 (4.4-11.0)
[2018-02-26 06:23] LABS: Anion Gap 9 (5-15); BUN 33 mg/dL (7-18); BUN/Creat Ratio 20.9 RATIO (10-20); Calcium,Total 8.5 mg/dL (8.5-10.1); Chloride 112 mmol/L (98-107); Creatinine, Serum 1.58 mg/dL (0.55-1.02); EST Glomerular Filtration Rate 34 mL/min (>60); Est Glom Filt Rate - Afr Amer 41 mL/min (>60); Estimated Creatinine Clearance 25.83 ml/min; Glucose 89 mg/dL (74-106); Potassium 4.1 mmol/L (3.5-5.1); Sodium Level 142 mmol/L (136-145)
[2018-02-26] MEDS: 0.9% Normal Saline 1,000 ML 100 ML IV (07:00)
[2018-02-26 07:10] LABS: Bedside Glucose 77 mg/dL (70-110)
[2018-02-26] MEDS: Hydroxychloroquine 200 MG Tablet PO ×2 (08:14→16:53)
[2018-02-26] MEDS: Famotidine 20 MG Tablet PO (08:14)
[2018-02-26] MEDS: Ferrous Sulfate 325 MG Tablet PO ×2 (08:14→16:53)
[2018-02-26] MEDS: Aspirin E.C. 81 MG Tablet PO (08:14)
[2018-02-26] MEDS: Allopurinol 300 MG Tablet PO (08:14)
[2018-02-26] MEDS: predniSONE 5 MG Tablet PO ×2 (08:14→16:53)
[2018-02-26] MEDS: Metoprolol Tartrate 100 MG Tablet PO (08:56)
[2018-02-26] MEDS: levoFLOXacin IV 250 MG/50 ML BAG 50 MG IV (08:57)
[2018-02-26 11:31] LABS: Bedside Glucose 156 mg/dL (70-110)
[2018-02-26 17:06] LABS: Bedside Glucose 134 mg/dL (70-110)
--- NOTE | 2018-02-26 18:18 | PCM.DC ---
- Discharge Diagnoses Current Active Problems: Current Active and Chronic Problems (Last Reviewed 02/24/18 @ 04:16 by Dusty Tomlinson DO) Cellulitis (Acute) Sepsis (Acute) Varicose veins of both lower extremities (Chronic) Chronic renal failure, stage 4 (severe) (Chronic) Chronic steroid use (Chronic) Morbid obesity with BMI of 45.0-49.9, adult (Chronic) Osteopenia (Chronic) Pulmonary hypertension (Chronic) Personal history of DVT (deep vein thrombosis) (Chronic) Presence of IVC filter (Chronic) You will use the following diet at home:: Calorie/Carbohydrate Controlled (specify 1200, 1400, etc), Cardiac Your food should be the consistency of: Regular Your liquids should be the consistency of: Regular/Thin Discharge Activity: Return to Normal Activity Cleanse incision/area with: Keep Dressing Clean & Dry Allergies/Adverse Reactions: Allergies cefepime HCl [From Maxipime] Allergy (Verified 02/24/18 05:08) Itching cephalexin monohydrate [From Keflex] Allergy (Verified 02/24/18 05:08) Hives clopidogrel [From Plavix] Allergy (Verified 02/24/18 05:08) Itching and hives all over hydromorphone HCl [From Dilaudid] Adverse Reaction (Verified 02/24/18 05:08) Itching Medications to take at Discharge Ergocalciferol [Vitamin D] 50,000 unit PO WESA 12/19/14 predniSONE tablet 5 mg PO DAILY 12/19/14 Allopurinol [Zyloprim] 300 mg PO DAILYCM 01/23/15 Simvastatin [Zocor] 40 mg PO QHS 12/03/16 Aspirin E.C. [Ecotrin] 81 mg PO DAILY@0800 #30 tab 12/05/16 Hydroxychloroquine [Plaquenil] 200 mg PO BID 12/25/17 Insulin Glargine,Hum.rec.anlog [Lantus] 10 unit SQ QHS 01/07/18 Tramadol HCl [Ultram] 50 mg PO PRN PRN 01/07/18 metoprolol tartrate 100 mg tablet 100 mg PO BID #180 tab 02/11/18 ferrous sulfate 325 mg (65 mg iron) tablet,delayed release 325 mg PO BID tab 02/12/18 Tramadol HCl [Ultram] 50 mg PO TID PRN 02/24/18 levoFLOXacin tablet [Levaquin tablet] 250 mg PO DAILY #3 tab 02/26/18 The following prescriptions were given: levoFLOXacin tablet [Levaquin tablet] 250 mg PO DAILY #3 tab Primary Care Physician: Sonja Feliciano [Primary Care Provider] - Please follow up with your Primary Care Physician in: 5 to 7 days.
--- NOTE | 2018-02-26 18:20 | PCM.DC.SUM ---
Discharge Date and Diagnosis - Problem List Patient Problems: Active and Suspected Problems (Last Reviewed 02/24/18 @ 04:16 by Dusty Tomlinson DO) Cellulitis (Acute) Sepsis (Acute) Rheumatoid arthritis (Suspected) she sees Dr. Wiggins and is on Plaquenil and Prednisone Date of Admission: 02/24/18 Date of Discharge: 02/26/18 - Primary Discharge Diagnosis Active and Suspected Problems (Last Reviewed 02/24/18 @ 04:16 by Dusty Tomlinson DO) Pneumonia, organism unknown. Cellulitis (Acute) Sepsis (Acute) Rheumatoid arthritis (Suspected) she sees Dr. Wiggins and is on Plaquenil and Prednisone - Secondary Discharge Diagnosis Chronic Problems (Last Reviewed 02/24/18 @ 04:16 by Dusty Tomlinson DO) Varicose veins of both lower extremities (Chronic) Chronic renal failure, stage 4 (severe) (Chronic) Chronic steroid use (Chronic) Morbid obesity with BMI of 45.0-49.9, adult (Chronic) Osteopenia (Chronic) Pulmonary hypertension (Chronic) Personal history of DVT (deep vein thrombosis) (Chronic) Presence of IVC filter (Chronic) Lymphedema (Chronic) PVD (peripheral vascular disease) (Chronic) CAD (coronary artery disease) (Chronic) Paroxysmal atrial fibrillation (Chronic) S/P angioplasty with stent (Chronic) EDGARDO to mid LAD 12/05/2016 DM2 (diabetes mellitus, type 2) (Chronic) Dyslipidemia (Chronic) Depression (Chronic) HTN (hypertension) (Chronic) Gout (Chronic) 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 Correlate with CT chest with contrast if not contraindicated. Electronically Signed: Reynaldo Dozier MD at 2:36 EDT , Service support , Chest CT 02/24/18 16:04 IMPRESSION: There are scattered areas of patchy airspace opacity in both lungs, most pronounced in the left lower lobe. The findings may represent mild diffuse infection. There is no pleural effusion. The pulmonary arteries are prominent, suggesting pulmonary artery hypertension. This likely accounted for the right hilar prominence on chest radiograph. There is no definite lymphadenopathy allowing for lack of contrast in the vessels. Cystic change in the upper pole of the right kidney is incompletely visualized and is either due to cysts or hydronephrosis. Electronically Signed: Tesha Ritter MD at 17:08 EDT Tel Direct: [phone], Service support , Consultations 02/24/18 13:16 Consult: Onc/Wound/vp design Routine Comment: Reason for Consult:: left lower leg Operations: None Procedures: None Summary of Care Provided: Patient is a 72 years old female with recurrent cellulitis of legs with underling stasis dermatitis from venous insufficiency and chronic wound, admitted on 02/24/18 for cellulitis of left lower leg. She had sudden onset of fever, chills, nausea, vomiting, and diarrhea, along with erythema of left distal leg. Her last admission was 11/2017 with severe sepsis associated with cellulitis with MSSA. Temp was 101.7 in the ED, with WBC 25.6. Lactic acid was 2.1. Blood pressure and heart rate were within normal limits, but had tachypnea with rate 30 initially. She was also found to have right hilar enlargement, concern of underling pneumonia. on 02/25, she is afebrile x 24 hours. No chest pain or cough. Erythema of leg receding. On 02/26, she remained afebrile. WBC slightly above normal but trending down. She has minimal respiratory symptoms. Hgb 7.2, and she has subjective weakness. PRBC 1 unit was given. Plan to discharge to home after transfusion. #1 Severe sepsis with underling cellulitis of left lower leg and pneumonia. Started on vancomycin and levofloxacin empirically to cover both skin infection and possible pneumonia. S/P IVF resuscitation for sepsis. She is hemodynamically stable. WBC on admission 25.6, trending down. Blood culture negative to date. Cellulitis appears improved. Plan to continue Levaquin only for cellulitis and pneumonia. 250 mg po daily for 3 more days, total of 7 days. #[address] of chest without contrast was done, showing bilateral patchy infiltrate, most pronounced in the LLL. Antibiotics as above. Blood culture negative to date. #3 CKD III. Creatinine 1.6 to 1.8, at baseline. Monitor BMP. #4 DM II. Continue Levemir 10 units HS, and cover with sliding scale aspart insulin. #5 history of PE/DVT, s/p IVC filter. #6 Paroxysmal atrial fibrillation. She is in sinus rhythm, currently on metoprolol. Continue. She may benefit from anticoagulation for stroke prophylaxis. I will defer this to cardiology as outpatient. Meanwhile, continue aspirin. #7 Coronary artery disease. History of stent to LAD. Continue aspirin, statin, and beta-reid. #8 rheumatoid arthritis. Continue Plaquenil and prednisone. #9 Chronic Anemia, iron deficiency / chronic disease. Hgb trended down to 7.2 with subjective weakness. No cardiac symptoms otherwise. No signs of active bleeding, probably due to chronic production problems with iron deficiency and CKD. 1 unit PRBC transfused. Follow up as outpatient. Patient is full code. Disposition: Home. She lives with her daughter, who has been helping her. Discharge Diet: Low fat/ Low Cholesterol, Carb Control Diet, - Discharge Activity: Return to Normal Activity Cleanse incision/area with: Keep Dressing Clean & Dry Home Medications: Medications to take at Discharge Ergocalciferol [Vitamin D] 50,000 unit PO WESA 12/19/14 predniSONE tablet 5 mg PO DAILY 12/19/14 Allopurinol [Zyloprim] 300 mg PO DAILYCM 01/23/15 Simvastatin [Zocor] 40 mg PO QHS 12/03/16 Aspirin E.C. [Ecotrin] 81 mg PO DAILY@0800 #30 tab 12/05/16 Hydroxychloroquine [Plaquenil] 200 mg PO BID 12/25/17 Insulin Glargine,Hum.rec.anlog [Lantus] 10 unit SQ QHS 01/07/18 Tramadol HCl [Ultram] 50 mg PO PRN PRN 01/07/18 metoprolol tartrate 100 mg tablet 100 mg PO BID #180 tab 02/11/18 ferrous sulfate 325 mg (65 mg iron) tablet,delayed release 325 mg PO BID tab 02/12/18 Tramadol HCl [Ultram] 50 mg PO TID PRN 02/24/18 levoFLOXacin tablet [Levaquin tablet] 250 mg PO DAILY #3 tab 02/26/18 Following Prescrptions Were Given to Patient: levoFLOXacin tablet [Levaquin tablet] 250 mg PO DAILY #3 tab Primary Care Physician: Sonja Feliciano [Primary Care Provider] - Please follow up with your Primary Care Physician in: 5 to 7 days. Disposition: Home Patient Condition:: Good Medical Necessity - Tobacco Use Smoking Status: Never smoker Tobacco Use: Non-smoker Meaningful Use Info Meaningful Use Diagnoses (Choose all that apply): None applicable Code Visit Inpatient E&M: 59188 Disch Hosp
--- NOTE | 2018-02-26 18:28 | DS.PCM_ITS ---
Discharge Date and Diagnosis - Problem List Patient Problems: Active and Suspected Problems (Last Reviewed 02/24/18 @ 04:16 by Dusty Tomlinson DO) Cellulitis (Acute) Sepsis (Acute) Rheumatoid arthritis (Suspected) she sees Dr. Wiggins and is on Plaquenil and Prednisone Date of Admission: 02/24/18 Date of Discharge: 02/26/18 - Primary Discharge Diagnosis Active and Suspected Problems (Last Reviewed 02/24/18 @ 04:16 by Dusty Tomlinson DO) Pneumonia, organism unknown. Cellulitis (Acute) Sepsis (Acute) Rheumatoid arthritis (Suspected) she sees Dr. Wiggins and is on Plaquenil and Prednisone - Secondary Discharge Diagnosis Chronic Problems (Last Reviewed 02/24/18 @ 04:16 by Dusty Tomlinson DO) Varicose veins of both lower extremities (Chronic) Chronic renal failure, stage 4 (severe) (Chronic) Chronic steroid use (Chronic) Morbid obesity with BMI of 45.0-49.9, adult (Chronic) Osteopenia (Chronic) Pulmonary hypertension (Chronic) Personal history of DVT (deep vein thrombosis) (Chronic) Presence of IVC filter (Chronic) Lymphedema (Chronic) PVD (peripheral vascular disease) (Chronic) CAD (coronary artery disease) (Chronic) Paroxysmal atrial fibrillation (Chronic) S/P angioplasty with stent (Chronic) EDGARDO to mid LAD 12/05/2016 DM2 (diabetes mellitus, type 2) (Chronic) Dyslipidemia (Chronic) Depression (Chronic) HTN (hypertension) (Chronic) Gout (Chronic) 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 Correlate with CT chest with contrast if not contraindicated. Electronically Signed: Reynaldo Dozier MD at 2:36 EDT , Service support , Chest CT 02/24/18 16:04 IMPRESSION: There are scattered areas of patchy airspace opacity in both lungs, most pronounced in the left lower lobe. The findings may represent mild diffuse infection. There is no pleural effusion. The pulmonary arteries are prominent, suggesting pulmonary artery hypertension. This likely accounted for the right hilar prominence on chest radiograph. There is no definite lymphadenopathy allowing for lack of contrast in the vessels. Cystic change in the upper pole of the right kidney is incompletely visualized and is either due to cysts or hydronephrosis. Electronically Signed: Tesha Ritter MD at 17:08 EDT Tel Direct: [phone], Service support , Consultations 02/24/18 13:16 Consult: Onc/Wound/information resources manager Routine Comment: Reason for Consult:: left lower leg Operations: None Procedures: None Summary of Care Provided: Patient is a 72 years old female with recurrent cellulitis of legs with underling stasis dermatitis from venous insufficiency and chronic wound, admitted on 02/24/18 for cellulitis of left lower leg. She had sudden onset of fever, chills, nausea, vomiting, and diarrhea, along with erythema of left distal leg. Her last admission was 11/2017 with severe sepsis associated with cellulitis with MSSA. Temp was 101.7 in the ED, with WBC 25.6. Lactic acid was 2.1. Blood pressure and heart rate were within normal limits, but had tachypnea with rate 30 initially. She was also found to have right hilar enlargement, concern of underling pneumonia. on 02/25, she is afebrile x 24 hours. No chest pain or cough. Erythema of leg receding. On 02/26, she remained afebrile. WBC slightly above normal but trending down. She has minimal respiratory symptoms. Hgb 7.2, and she has subjective weakness. PRBC 1 unit was given. Plan to discharge to home after transfusion. #1 Severe sepsis with underling cellulitis of left lower leg and pneumonia. Started on vancomycin and levofloxacin empirically to cover both skin infection and possible pneumonia. S/P IVF resuscitation for sepsis. She is hemodynamically stable. WBC on admission 25.6, trending down. Blood culture negative to date. Cellulitis appears improved. Plan to continue Levaquin only for cellulitis and pneumonia. 250 mg po daily for 3 more days, total of 7 days. #[address] of chest without contrast was done, showing bilateral patchy infiltrate, most pronounced in the LLL. Antibiotics as above. Blood culture negative to date. #3 CKD III. Creatinine 1.6 to 1.8, at baseline. Monitor BMP. #4 DM II. Continue Levemir 10 units HS, and cover with sliding scale aspart insulin. #5 history of PE/DVT, s/p IVC filter. #6 Paroxysmal atrial fibrillation. She is in sinus rhythm, currently on metoprolol. Continue. She may benefit from anticoagulation for stroke prophylaxis. I will defer this to cardiology as outpatient. Meanwhile, continue aspirin. #7 Coronary artery disease. History of stent to LAD. Continue aspirin, statin, and beta-reid. #8 rheumatoid arthritis. Continue Plaquenil and prednisone. #9 Chronic Anemia, iron deficiency / chronic disease. Hgb trended down to 7.2 with subjective weakness. No cardiac symptoms otherwise. No signs of active bleeding, probably due to chronic production problems with iron deficiency and CKD. 1 unit PRBC transfused. Follow up as outpatient. Patient is full code. Disposition: Home. She lives with her daughter, who has been helping her. Discharge Diet: Low fat/ Low Cholesterol, Carb Control Diet, - Discharge Activity: Return to Normal Activity Cleanse incision/area with: Keep Dressing Clean & Dry Home Medications: Medications to take at Discharge Ergocalciferol [Vitamin D] 50,000 unit PO WESA 12/19/14 predniSONE tablet 5 mg PO DAILY 12/19/14 Allopurinol [Zyloprim] 300 mg PO DAILYCM 01/23/15 Simvastatin [Zocor] 40 mg PO QHS 12/03/16 Aspirin E.C. [Ecotrin] 81 mg PO DAILY@0800 #30 tab 12/05/16 Hydroxychloroquine [Plaquenil] 200 mg PO BID 12/25/17 Insulin Glargine,Hum.rec.anlog [Lantus] 10 unit SQ QHS 01/07/18 Tramadol HCl [Ultram] 50 mg PO PRN PRN 01/07/18 metoprolol tartrate 100 mg tablet 100 mg PO BID #180 tab 02/11/18 ferrous sulfate 325 mg (65 mg iron) tablet,delayed release 325 mg PO BID tab Tramadol HCl [Ultram] 50 mg PO TID PRN 02/24/18 levoFLOXacin tablet [Levaquin tablet] 250 mg PO DAILY #3 tab 02/26/18 Following Prescrptions Were Given to Patient: levoFLOXacin tablet [Levaquin tablet] 250 mg PO DAILY #3 tab Primary Care Physician: Sonja Feliciano [Primary Care Provider] - Please follow up with your Primary Care Physician in: 5 to 7 days. Disposition: Home Patient Condition:: Good Medical Necessity - Tobacco Use Smoking Status: Never smoker Tobacco Use: Non-smoker Meaningful Use Info Meaningful Use Diagnoses (Choose all that apply): None applicable Code Visit Inpatient E&M: 64982 Disch Hosp
[2018-02-26] MEDS: Furosemide 40 MG/4 ML Vial IV (19:00)
== END 2018-02-26 21:15 | disposition home or self-care (01) | DRG 871 ==
LOC: ED 02:31 → PCU 04:00
PROVIDERS: Admitting Provider Internal Medicine; Emergency Provider Emergency Medicine; Family Provider Nurse Practitioner; PCP Nurse Practitioner; Visit Provider Hospitalist
DX: A41.9 Sepsis, unspecified organism (principal); J18.9 Pneumonia, unspecified organism; N18.4 Chronic kidney disease, stage 4 (severe); L03.116 Cellulitis of left lower limb; I27.20 Pulmonary hypertension, unspecified; E11.22 Type 2 diabetes mellitus with diabetic chronic kidney disease; I48.0 Paroxysmal atrial fibrillation; E11.59 Type 2 diabetes mellitus with other circulatory complications; I12.9 Hypertensive chronic kidney disease with stage 1 through stage 4 chronic kidney disease, or unspecified chronic kidney disease; R65.20 Severe sepsis without septic shock; I25.10 Atherosclerotic heart disease of native coronary artery without angina pectoris; M06.9 Rheumatoid arthritis, unspecified; E78.5 Hyperlipidemia, unspecified; M10.9 Gout, unspecified; I83.893 Varicose veins of bilateral lower extremities with other complications; I89.0 Lymphedema, not elsewhere classified; I73.9 Peripheral vascular disease, unspecified; F32.9 Major depressive disorder, single episode, unspecified; E66.09 Other obesity due to excess calories; Z68.37 Body mass index [BMI] 37.0-37.9, adult; Z88.3 Allergy status to other anti-infective agents; Z79.82 Long term (current) use of aspirin; Z79.4 Long term (current) use of insulin; Z79.52 Long term (current) use of systemic steroids; Z79.899 Other long term (current) drug therapy; Z86.718 Personal history of other venous thrombosis and embolism; Z86.711 Personal history of pulmonary embolism; Z87.440 Personal history of urinary (tract) infections; Z95.5 Presence of coronary angioplasty implant and graft
CPT/HCPCS: 36415; 71045; 71250; 80048; 80076; 82728; 82962; 83605; 83690; 83735; 85025; 85027; 85652; 86140; 86850; 86900; 87040; 97116; 97162; 97166; 97530; 97802; 99285; J7030; J7040; P9016; A4216; J1940; J2405

== ENCOUNTER 2018-03-25 14:00 | Outpatient (RCR) | payer MEDICARE, SELFPAY ==
[2016-12-05 15:47] VITALS: BMI 35.6
[2018-02-28 00:55] VITALS: BP 141/74; PULSE 63; RESP 18; TEMP 36.1; BMI 36.6
[2018-03-18 13:41] VITALS: BP 146/57; PULSE 67; RESP 18; TEMP 36.6; BMI 36.6
--- NOTE | 2018-03-18 18:43 | PCM.WC.PN ---
(1) Ulcer of left lower extremity with fat layer exposed Status: Acute Code(s): L97.922 - Non-pressure chronic ulcer of unspecified part of left lower leg with fat layer exposed Comment: mixed venous arterial left posterior calf (2) Chronic steroid use Status: Chronic (3) HTN (hypertension) Status: Chronic Qualifiers: Code(s): I10 - Essential (primary) hypertension (4) Lymphedema Status: Chronic Code(s): I89.0 - Lymphedema, not elsewhere classified (5) PVD (peripheral vascular disease) Status: Chronic Code(s): I73.9 - Peripheral vascular disease, unspecified (6) Type 2 diabetes mellitus with other circulatory complications Status: Chronic Code(s): E11.59 - Type 2 diabetes mellitus with other circulatory complications (7) Varicose veins of both lower extremities Status: Chronic Code(s): I83.93 - Asymptomatic varicose veins of bilateral lower extremities Type of Wound Date of Service: 03/18/18 Chief Complaint: ulcers on the back of left leg that arent healing History of Wound: This is a 72-year-old white female who presents to the wound healing center today with complaint of nonhealing ulcers on the left posterior lower extremity which has been going on intermittently since 2013. She was recently admitted to [facility] from through 12/27/17 for severe sepsis and cellulitis of the left leg. She was treated with IV antibiotics and sent home on penicillin V potassium 4 times daily for 7 days and was instructed to follow-up with infectious disease and with the wound healing center. She does have a past medical history which is significant for coronary artery disease, paroxysmal atrial fibrillation, type 2 diabetes mellitus, RA,depression, hyperlipidemia, hypertension, CKD, peripheral vascular disease, and chronic lymphedema. Her wound treatments so far has been covering the ulcers with a bandage and EDER wraps. She does state that the cellulitis has improved and that the pain has improved as well. She denies any discharge or foul-smelling odor from the wound. She did have arterial studies done in November 2015 which demonstrated left TBI of 0.6 and right TBI of 0.34 her vascular study at that time was suggestive of severe distal small vessel arterial occlusive disease in the right lower extremity and moderate distal small vessel arterial occlusive disease in the left lower extremity. She states that her diabetes is typically well controlled and that she has a chronic problem with ulcers in her lower extremities ever since having skin grafts placed in the past. The patient otherwise denies any fever, chills, nausea, vomiting, shortness of breath, chest pain or pressure, palpitations, orthopnea, syncope or presyncopal episodes. Progress of Wound: stable, no marked improvement - Physical Exam Vital Signs Temp Pulse Resp BP 98.6 F 63 20 H 149/70 H 03/22/18 15:22 03/22/18 15:22 03/22/18 15:22 03/22/18 15:22 General: Alert, Oriented x3, Cooperative, No apparent distress HEENT: Atraumatic Cardiovascular: Regular rate Extremities: Diminished Peripheral Pulses, Edema Skin: Ulcer/ Wound - Cluster ulcer present left posterior lower extremity, wound bed is moist with slough and fibrous tissue present, no exudate or foul-smelling discharge Wound Measurements and Assessment WC - Nurse 1 - General Ulcer Measurement Start: 03/18/18 13:40 Freq: Status: Active Protocol: Activity Type Activity Date Activity User E-Sign Co-Sign Detail Recorded Client Recorded Date Recorded By Document 03/22/18 15:22 [id number] 03/22/18 15:53 03/22/18 15:22 Wound Center Nurse 1 [Ulcer Assessment] #6- LT CALF CLUSTER -Combined with other wound Yes -Combined with (Name of Wound-Exactly L-CALF CLUSTER as it is documented) -Current Size (cm) - Length 3.3 -Current Size (cm) - Width 2.1 -Current Size (cm) - Depth 0.1 -Total Square Cm 6.93 -Date of Last Picture (Recall this 03/22/18 field) -Photo Taken Yes -Epithelialization Medium 34-66% -Tunneling No -Undermining/Tunneling No -Circular Undermining No -Classification - Thickness Full Thickness without Exposed Support Structure -Exudate Amt Small (1-33%) -Exudate Type Serous -Wound Margin Distinct, Outline Attached -Granulation Amt Small (1-33%) -Granulation Quality Pale [place] -Slough/Fibrin Yes -Necrosis Amt None Present (0 %) -Necrotic Tissue Type Adherent Slough -Structure Exposed None/Limited to Skin Breakdown -Texture (Cassi-wound Skin Appearance) Assessed Scarring -Moisture (Cassi-wound Skin Appearance No Abnormality ) -Color (Cassi-wound Skin Appearance) No Abnormality Assessed -Temperature (Cassi-wound Skin No Abnormality Appearance) (Pt Warm) -Tenderness on Palpation (Cassi-wound No Skin Appearance) -Ulcer Cleansing PROVON SOAP -Foul Odor after Cleansing No [Edema Assessment] -Left Calf (cm) 40.5 -Left Ankle (cm) 20.5 Neurological: Neuro grossly intact Psych/Mental Status: Normal Affect, Alert and oriented to time, place, person, mood and affect Debridement Note Wound debrided: Left posterior lower extremity cluster ulcer Laterality: Left Type of Debridement: Excisional debridement Anesthesia Used: 5% Lidocaine Gel Depth: Down to and including healthy tissue, in the subcutaneous layer Percentage of wound debrided: 100 Instrument Used: 5mm curette Tissue Removed: Slough and fibrous tissue Severity: Fat Layer Exposed Amount of bleeding with debridement: Mild Bleeding Controlled with: Pressure Patient tolerated procedure well Assessment/Plan Assessment: Nonhealing ulcer left lower extremity, wound stable, Did discuss with patient the importance of having a vascular consultation given her mixed venous and arterial status. A referral was placed for vascular previously. The patient is unwilling to see a vascular specialist at this time. Given the delayed wound healing, will apply for the use of Epifix. Plan: The patient was seen and evaluated at the wound healing center today and updated on her plan of care. 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 Previous vascular studies reviewed from 2016 and demonstrated arterial occlusive disease. Repeat vascular studies demonstrated TBI right 0.41 and left 0.43, indicative of arterial disease and therefore placed referral to vascular surgeon Dr. Herring to discuss possible vascular intervention, patient wishes to hold off at this time. Venous studies did demonstrate venous insufficiency. Cultures collected and demonstrated staph aureus which is susceptible to clindamycin, patient started on Clinda 3 times daily for 7 days and completed this. Patient's cellulitis is resolved. Blood work ordered and reviewed A1c 6.3 and pre-albumin slightly low, advised to increase protein in the diet. A subcutaneous debridement was performed during today's visit and the patient tolerated this well. patient did follow-up with infectious disease as she was referred after her hospital stay who stated that she did not require any antibiotics additionally at this time. Daily dressing changes to include a thin application of hydrogel with Adaptic and covered with gauze. Light compression at this time with Eder wraps due to poor arterial status. Will apply for Epifix. Discussed with patient the importance of diet and nutrition and wound healing and that she should try to keep her blood sugars under control. Patient verbalized understanding. Discussed with patient red flag symptoms of systemic infection that require urgent medical attention. Patient will otherwise follow-up in the wound center in 1 week. Patient is seeking wound clearance for a bladder mesh surgery from her TUBE DRAWER, from a wound standpoint she is stable and cleared. Did recommend that she obtain clearance from her data analytics architect and PCP as well. This note was generated with [employer] dictation software. It may contain incorrect words, spelling, and punctuation that were not noted in checking the note before signing. Code Visit 111xxx-113xx: [id number] [place] subq tissue 20 sq cm/<
[2018-03-22 15:22] VITALS: BP 149/70; PULSE 63; RESP 20; TEMP 37; BMI 36.6
--- NOTE | 2018-03-23 08:52 | PN.PCM_ITS ---
(1) Ulcer of left lower extremity with fat layer exposed Status: Acute Code(s): L97.922 - Non-pressure chronic ulcer of unspecified part of left lower leg with fat layer exposed Comment: mixed venous arterial left posterior calf (2) Chronic steroid use Status: Chronic (3) HTN (hypertension) Status: Chronic Qualifiers: Code(s): I10 - Essential (primary) hypertension (4) Lymphedema Status: Chronic Code(s): I89.0 - Lymphedema, not elsewhere classified (5) PVD (peripheral vascular disease) Status: Chronic Code(s): I73.9 - Peripheral vascular disease, unspecified (6) Type 2 diabetes mellitus with other circulatory complications Status: Chronic Code(s): E11.59 - Type 2 diabetes mellitus with other circulatory complications (7) Varicose veins of both lower extremities Status: Chronic Code(s): I83.93 - Asymptomatic varicose veins of bilateral lower extremities Type of Wound Date of Service: 03/18/18 Chief Complaint: ulcers on the back of left leg that arent healing History of Wound: This is a 72-year-old white female who presents to the wound healing center today with complaint of nonhealing ulcers on the left posterior lower extremity which has been going on intermittently since 2013. She was recently admitted to [facility] from through 12/27/17 for severe sepsis and cellulitis of the left leg. She was treated with IV antibiotics and sent home on penicillin V potassium 4 times daily for 7 days and was instructed to follow-up with infectious disease and with the wound healing center. She does have a past medical history which is significant for coronary artery disease, paroxysmal atrial fibrillation, type 2 diabetes mellitus, RA,depression, hyperlipidemia, hypertension, CKD, peripheral vascular disease, and chronic lymphedema. Her wound treatments so far has been covering the ulcers with a bandage and EDER wraps. She does state that the cellulitis has improved and that the pain has improved as well. She denies any discharge or foul-smelling odor from the wound. She did have arterial studies done in November 2015 which demonstrated left TBI of 0.6 and right TBI of 0.34 her vascular study at that time was suggestive of severe distal small vessel arterial occlusive disease in the right lower extremity and moderate distal small vessel arterial occlusive disease in the left lower extremity. She states that her diabetes is typically well controlled and that she has a chronic problem with ulcers in her lower extremities ever since having skin grafts placed in the past. The patient otherwise denies any fever, chills, nausea, vomiting, shortness of breath, chest pain or pressure, palpitations, orthopnea, syncope or presyncopal episodes. Progress of Wound: stable, no marked improvement - Physical Exam Vital Signs Temp Pulse Resp BP 98.6 F 63 20 H 149/70 H 03/22/18 15:22 03/22/18 15:22 03/22/18 15:22 03/22/18 15:22 General: Alert, Oriented x3, Cooperative, No apparent distress HEENT: Atraumatic Cardiovascular: Regular rate Extremities: Diminished Peripheral Pulses, Edema Skin: Ulcer/ Wound - Cluster ulcer present left posterior lower extremity, wound bed is moist with slough and fibrous tissue present, no exudate or foul- smelling discharge Wound Measurements and Assessment WC - Nurse 1 - General Ulcer Measurement Start: 03/18/18 13:40 Freq: Status: Active Protocol: Activity Type Activity Date Activity User E-Sign Co-Sign Detail Recorded Client Recorded Date Recorded By Document 03/22/18 15:22 [id number] 03/22/18 15:53 03/22/18 15:22 Wound Center Nurse 1 [Ulcer Assessment] #6- LT CALF CLUSTER -Combined with other wound Yes -Combined with (Name of Wound-Exactly L-CALF CLUSTER as it is documented) -Current Size (cm) - Length 3.3 -Current Size (cm) - Width 2.1 -Current Size (cm) - Depth 0.1 -Total Square Cm 6.93 -Date of Last Picture (Recall this 03/22/18 field) -Photo Taken Yes -Epithelialization Medium 34-66% -Tunneling No -Undermining/Tunneling No -Circular Undermining No -Classification - Thickness Full Thickness without Exposed Support Structure -Exudate Amt Small (1-33%) -Exudate Type Serous -Wound Margin Distinct, Outline Attached -Granulation Amt Small (1-33%) -Granulation Quality Pale [place] -Slough/Fibrin Yes -Necrosis Amt None Present (0 %) -Necrotic Tissue Type Adherent Slough -Structure Exposed None/Limited to Skin Breakdown -Texture (Cassi-wound Skin Appearance) Assessed Scarring -Moisture (Cassi-wound Skin Appearance No Abnormality ) -Color (Cassi-wound Skin Appearance) No Abnormality Assessed -Temperature (Cassi-wound Skin No Abnormality Appearance) (Pt Warm) -Tenderness on Palpation (Cassi-wound No Skin Appearance) -Ulcer Cleansing PROVON SOAP -Foul Odor after Cleansing No [Edema Assessment] -Left Calf (cm) 40.5 -Left Ankle (cm) 20.5 Neurological: Neuro grossly intact Psych/Mental Status: Normal Affect, Alert and oriented to time, place, person, mood and affect Debridement Note Wound debrided: Left posterior lower extremity cluster ulcer Laterality: Left Type of Debridement: Excisional debridement Anesthesia Used: 5% Lidocaine Gel Depth: Down to and including healthy tissue, in the subcutaneous layer Percentage of wound debrided: 100 Instrument Used: 5mm curette Tissue Removed: Slough and fibrous tissue Severity: Fat Layer Exposed Amount of bleeding with debridement: Mild Bleeding Controlled with: Pressure Patient tolerated procedure well Assessment/Plan Assessment: Nonhealing ulcer left lower extremity, wound stable, Did discuss with patient the importance of having a vascular consultation given her mixed venous and arterial status. A referral was placed for vascular previously. The patient is unwilling to see a vascular specialist at this time. Given the delayed wound healing, will apply for the use of Epifix. Plan: The patient was seen and evaluated at the wound healing center today and updated on her plan of care. 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 Previous vascular studies reviewed from 2016 and demonstrated arterial occlusive disease. Repeat vascular studies demonstrated TBI right 0.41 and left 0.43, indicative of arterial disease and therefore placed referral to vascular surgeon Dr. Herring to discuss possible vascular intervention, patient wishes to hold off at this time. Venous studies did demonstrate venous insufficiency. Cultures collected and demonstrated staph aureus which is susceptible to clindamycin, patient started on Clinda 3 times daily for 7 days and completed this. Patient's cellulitis is resolved. Blood work ordered and reviewed A1c 6.3 and pre-albumin slightly low, advised to increase protein in the diet. A subcutaneous debridement was performed during today's visit and the patient tolerated this well. patient did follow-up with infectious disease as she was referred after her hospital stay who stated that she did not require any antibiotics additionally at this time. Daily dressing changes to include a thin application of hydrogel with Adaptic and covered with gauze. Light compression at this time with Eder wraps due to poor arterial status. Will apply for Epifix. Discussed with patient the importance of diet and nutrition and wound healing and that she should try to keep her blood sugars under control. Patient verbalized understanding. Discussed with patient red flag symptoms of systemic infection that require urgent medical attention. Patient will otherwise follow-up in the wound center in 1 week. Patient is seeking wound clearance for a bladder mesh surgery from her DISHWASHER PREPARER, from a wound standpoint she is stable and cleared. Did recommend that she obtain clearance from her rug scratcher and PCP as well. This note was generated with [employer] dictation software. It may contain incorrect words, spelling, and punctuation that were not noted in checking the note before signing. Code Visit 111xxx-113xx: 69915 [place] subq tissue 20 sq cm/<
[2018-03-25 14:09] VITALS: BP 145/78; PULSE 63; RESP 18; TEMP 37; BMI 36.6
--- NOTE | 2018-03-25 18:17 | PCM.WC.PN ---
(1) Ulcer of left lower extremity with fat layer exposed Status: Acute Code(s): L97.922 - Non-pressure chronic ulcer of unspecified part of left lower leg with fat layer exposed Comment: mixed venous arterial left posterior calf (2) Chronic steroid use Status: Chronic (3) HTN (hypertension) Status: Chronic Qualifiers: Code(s): I10 - Essential (primary) hypertension (4) Lymphedema Status: Chronic Code(s): I89.0 - Lymphedema, not elsewhere classified (5) PVD (peripheral vascular disease) Status: Chronic Code(s): I73.9 - Peripheral vascular disease, unspecified (6) Type 2 diabetes mellitus with other circulatory complications Status: Chronic Code(s): E11.59 - Type 2 diabetes mellitus with other circulatory complications (7) Varicose veins of both lower extremities Status: Chronic Code(s): I83.93 - Asymptomatic varicose veins of bilateral lower extremities Type of Wound Date of Service: 03/25/18 Chief Complaint: ulcers on the back of left leg that arent healing History of Wound: This is a 72-year-old white female who presents to the wound healing center today with complaint of nonhealing ulcers on the left posterior lower extremity which has been going on intermittently since 2013. She was recently admitted to [facility] from through 12/27/17 for severe sepsis and cellulitis of the left leg. She was treated with IV antibiotics and sent home on penicillin V potassium 4 times daily for 7 days and was instructed to follow-up with infectious disease and with the wound healing center. She does have a past medical history which is significant for coronary artery disease, paroxysmal atrial fibrillation, type 2 diabetes mellitus, RA,depression, hyperlipidemia, hypertension, CKD, peripheral vascular disease, and chronic lymphedema. Her wound treatments so far has been covering the ulcers with a bandage and EDER wraps. She does state that the cellulitis has improved and that the pain has improved as well. She denies any discharge or foul-smelling odor from the wound. She did have arterial studies done in November 2015 which demonstrated left TBI of 0.6 and right TBI of 0.34 her vascular study at that time was suggestive of severe distal small vessel arterial occlusive disease in the right lower extremity and moderate distal small vessel arterial occlusive disease in the left lower extremity. She states that her diabetes is typically well controlled and that she has a chronic problem with ulcers in her lower extremities ever since having skin grafts placed in the past. The patient otherwise denies any fever, chills, nausea, vomiting, shortness of breath, chest pain or pressure, palpitations, orthopnea, syncope or presyncopal episodes. Progress of Wound: stable, no marked improvement, pt receptive to seeing Dr. Herring now. - Physical Exam Vital Signs Temp Pulse Resp BP 98.6 F 63 18 145/78 H 03/25/18 14:09 03/25/18 14:09 03/25/18 14:09 03/25/18 14:09 General: Alert, Oriented x3, Cooperative, No apparent distress HEENT: Atraumatic Neck: Supple Cardiovascular: Regular rate Abdomen: Bowel Sounds Present Extremities: Diminished Peripheral Pulses, Edema - Generalized bilateral lower extremity edema Skin: Ulcer/ Wound - Wound bed moist on cluster ulcer posterior left lower extremity, small amount of slough present. No signs of infection at this time Musculoskeletal: No Tenderness to Palpation of Joints or Extremities Neurological: Neuro grossly intact Psych/Mental Status: Normal Affect, Alert and oriented to time, place, person, mood and affect Debridement Note Post-Debridement Measurements/Treatment WC - Nurse 2 - General Ulcer CM Notes Start: 03/18/18 13:40 Freq: Status: Active Protocol: Activity Type Activity Date Activity User E-Sign Co-Sign Detail Recorded Client Recorded Date Recorded By Document 03/25/18 16:19 DV [id number] 03/25/18 16:20 DV 03/25/18 16:19 Wound Center Nurse 2 #6- LT CALF CLUSTER -Time 16:20 -Correct Patient Yes -Correct Side, Site, Position Yes -Correct Procedure Yes -Procedure Performed Yes -Type of Procedure Debridement -Clinical Debridement Subcutaneous -Post Debridement Size (cm) - Length 4.0 -Post Debridement Size (cm) - Width 4.0 -Post Debridement Size (cm) - Depth 0.1 -Total Square Cm 16.00 -Wound/Ulcer Outcome Not Healed -Ulcer Cleansing Rinsed/ Irrigated with Saline -Foul Odor after Cleansing No -Bioengineered Tissue No -Bleeding Controlled with Pressure -Treatment Response Procedure Tolerated Well Wound debrided: Posterior lower extremity cluster ulcer Laterality: Left Type of Debridement: Excisional debridement Anesthesia Used: 5% Lidocaine Gel Depth: in the subcutaneous layer Percentage of wound debrided: 100 Instrument Used: 5mm curette Tissue Removed: Slough and fibrous edges Severity: Fat Layer Exposed Amount of bleeding with debridement: Mild Bleeding Controlled with: Pressure Patient tolerated procedure well Assessment/Plan Assessment: Nonhealing ulcer left lower extremity, wound stable, Did discuss with patient the importance of having a vascular consultation given her mixed venous and arterial status. A referral was placed for vascular previously, instructed that until she sees vascular, Epifix will most likely not be approved. The patient is now willing to see a vascular specialist at this time and an appointment with Dr. Herring will be made. Plan: The patient was seen and evaluated at the wound healing center today and updated on her plan of care. 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 Previous vascular studies reviewed from 2016 and demonstrated arterial occlusive disease. Repeat vascular studies demonstrated TBI right 0.41 and left 0.43, indicative of arterial disease and therefore placed referral to vascular surgeon Dr. Herring to discuss possible vascular intervention, patient wishes to hold off at this time. Venous studies did demonstrate venous insufficiency. Cultures collected and demonstrated staph aureus which is susceptible to clindamycin, patient started on Clinda 3 times daily for 7 days and completed this. Patient's cellulitis is resolved. Blood work ordered and reviewed A1c 6.3 and pre-albumin slightly low, advised to increase protein in the diet. A subcutaneous debridement was performed during today's visit and the patient tolerated this well. patient did follow-up with infectious disease as she was referred after her hospital stay who stated that she did not require any antibiotics additionally at this time. Daily dressing changes to include a thin application of hydrogel with Adaptic and covered with gauze. Light compression at this time with Eder wraps due to poor arterial status. Will apply for Epifix. Discussed with patient the importance of diet and nutrition and wound healing and that she should try to keep her blood sugars under control. Patient verbalized understanding. Discussed with patient red flag symptoms of systemic infection that require urgent medical attention. Patient will otherwise follow-up in the wound center in 1 week. Patient is seeking wound clearance for a bladder mesh surgery from her AUTOMATIC DISPENSER MECHANIC, from a wound standpoint she is stable and cleared. Did recommend that she obtain clearance from her salad counter attendant and PCP as well.Will follow up with Dr. Hrering in the future as well. This note was generated with [employer] software. It may contain incorrect words, spelling, and punctuation that were not noted in checking the note before signing. Code Visit 111xxx-113xx: 37545 Galina subq tissue 20 sq cm/<
--- NOTE | 2018-03-31 13:24 | PN.PCM_ITS ---
(1) Ulcer of left lower extremity with fat layer exposed Status: Acute Code(s): L97.922 - Non-pressure chronic ulcer of unspecified part of left lower leg with fat layer exposed Comment: mixed venous arterial left posterior calf (2) Chronic steroid use Status: Chronic (3) HTN (hypertension) Status: Chronic Qualifiers: Code(s): I10 - Essential (primary) hypertension (4) Lymphedema Status: Chronic Code(s): I89.0 - Lymphedema, not elsewhere classified (5) PVD (peripheral vascular disease) Status: Chronic Code(s): I73.9 - Peripheral vascular disease, unspecified (6) Type 2 diabetes mellitus with other circulatory complications Status: Chronic Code(s): E11.59 - Type 2 diabetes mellitus with other circulatory complications (7) Varicose veins of both lower extremities Status: Chronic Code(s): I83.93 - Asymptomatic varicose veins of bilateral lower extremities Type of Wound Date of Service: 03/25/18 Chief Complaint: ulcers on the back of left leg that arent healing History of Wound: This is a 72-year-old white female who presents to the wound healing center today with complaint of nonhealing ulcers on the left posterior lower extremity which has been going on intermittently since 2013. She was recently admitted to [facility] from through 12/27/17 for severe sepsis and cellulitis of the left leg. She was treated with IV antibiotics and sent home on penicillin V potassium 4 times daily for 7 days and was instructed to follow-up with infectious disease and with the wound healing center. She does have a past medical history which is significant for coronary artery disease, paroxysmal atrial fibrillation, type 2 diabetes mellitus, RA,depression, hyperlipidemia, hypertension, CKD, peripheral vascular disease, and chronic lymphedema. Her wound treatments so far has been covering the ulcers with a bandage and EDER wraps. She does state that the cellulitis has improved and that the pain has improved as well. She denies any discharge or foul-smelling odor from the wound. She did have arterial studies done in November 2015 which demonstrated left TBI of 0.6 and right TBI of 0.34 her vascular study at that time was suggestive of severe distal small vessel arterial occlusive disease in the right lower extremity and moderate distal small vessel arterial occlusive disease in the left lower extremity. She states that her diabetes is typically well controlled and that she has a chronic problem with ulcers in her lower extremities ever since having skin grafts placed in the past. The patient otherwise denies any fever, chills, nausea, vomiting, shortness of breath, chest pain or pressure, palpitations, orthopnea, syncope or presyncopal episodes. Progress of Wound: stable, no marked improvement, pt receptive to seeing Dr. Herring now. - Physical Exam Vital Signs Temp Pulse Resp BP 98.6 F 63 18 145/78 H 03/25/18 14:09 03/25/18 14:09 03/25/18 14:09 03/25/18 14:09 General: Alert, Oriented x3, Cooperative, No apparent distress HEENT: Atraumatic Neck: Supple Cardiovascular: Regular rate Abdomen: Bowel Sounds Present Extremities: Diminished Peripheral Pulses, Edema - Generalized bilateral lower extremity edema Skin: Ulcer/ Wound - Wound bed moist on cluster ulcer posterior left lower extremity, small amount of slough present. No signs of infection at this time Musculoskeletal: No Tenderness to Palpation of Joints or Extremities Neurological: Neuro grossly intact Psych/Mental Status: Normal Affect, Alert and oriented to time, place, person, mood and affect Debridement Note Post-Debridement Measurements/Treatment WC - Nurse 2 - General Ulcer CM Notes Start: 03/18/18 13:40 Freq: Status: Active Protocol: Activity Type Activity Date Activity User E-Sign Co-Sign Detail Recorded Client Recorded Date Recorded By Document 03/25/18 16:19 DV [id number] 03/25/18 16:20 DV 03/25/18 16:19 Wound Center Nurse 2 #6- LT CALF CLUSTER -Time 16:20 -Correct Patient Yes -Correct Side, Site, Position Yes -Correct Procedure Yes -Procedure Performed Yes -Type of Procedure Debridement -Clinical Debridement Subcutaneous -Post Debridement Size (cm) - Length 4.0 -Post Debridement Size (cm) - Width 4.0 -Post Debridement Size (cm) - Depth 0.1 -Total Square Cm 16.00 -Wound/Ulcer Outcome Not Healed -Ulcer Cleansing Rinsed/ Irrigated with Saline -Foul Odor after Cleansing No -Bioengineered Tissue No -Bleeding Controlled with Pressure -Treatment Response Procedure Tolerated Well Wound debrided: Posterior lower extremity cluster ulcer Laterality: Left Type of Debridement: Excisional debridement Anesthesia Used: 5% Lidocaine Gel Depth: in the subcutaneous layer Percentage of wound debrided: 100 Instrument Used: 5mm curette Tissue Removed: Slough and fibrous edges Severity: Fat Layer Exposed Amount of bleeding with debridement: Mild Bleeding Controlled with: Pressure Patient tolerated procedure well Assessment/Plan Assessment: Nonhealing ulcer left lower extremity, wound stable, Did discuss with patient the importance of having a vascular consultation given her mixed venous and arterial status. A referral was placed for vascular previously, instructed that until she sees vascular, Epifix will most likely not be approved. The patient is now willing to see a vascular specialist at this time and an appointment with Dr. Herring will be made. Plan: The patient was seen and evaluated at the wound healing center today and updated on her plan of care. 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 Previous vascular studies reviewed from 2016 and demonstrated arterial occlusive disease. Repeat vascular studies demonstrated TBI right 0.41 and left 0.43, indicative of arterial disease and therefore placed referral to vascular surgeon Dr. Herring to discuss possible vascular intervention, patient wishes to hold off at this time. Venous studies did demonstrate venous insufficiency. Cultures collected and demonstrated staph aureus which is susceptible to clindamycin, patient started on Clinda 3 times daily for 7 days and completed this. Patient's cellulitis is resolved. Blood work ordered and reviewed A1c 6.3 and pre-albumin slightly low, advised to increase protein in the diet. A subcutaneous debridement was performed during today's visit and the patient tolerated this well. patient did follow-up with infectious disease as she was referred after her hospital stay who stated that she did not require any antibiotics additionally at this time. Daily dressing changes to include a thin application of hydrogel with Adaptic and covered with gauze. Light compression at this time with Eder wraps due to poor arterial status. Will apply for Epifix. Discussed with patient the importance of diet and nutrition and wound healing and that she should try to keep her blood sugars under control. Patient verbalized understanding. Discussed with patient red flag symptoms of systemic infection that require urgent medical attention. Patient will otherwise follow-up in the wound center in 1 week. Patient is seeking wound clearance for a bladder mesh surgery from her MARKER MACHINE ATTENDANT, from a wound standpoint she is stable and cleared. Did recommend that she obtain clearance from her auto body customizer and PCP as well.Will follow up with Dr. Herring in the future as well. This note was generated with [employer] software. It may contain incorrect words, spelling, and punctuation that were not noted in checking the note before signing. Code Visit 111xxx-113xx: [id number] Galina subq tissue 20 sq cm/<
== END 2018-03-29 23:59 ==
LOC: WC 14:00
PROVIDERS: Family Provider Nurse Practitioner; PCP Nurse Practitioner; Visit Provider Nurse Practitioner Family
DX: E11.622 Type 2 diabetes mellitus with other skin ulcer (principal); E11.51 Type 2 diabetes mellitus with diabetic peripheral angiopathy without gangrene; I10 Essential (primary) hypertension; Z79.52 Long term (current) use of systemic steroids; I89.0 Lymphedema, not elsewhere classified; I83.022 Varicose veins of left lower extremity with ulcer of calf; L97.222 Non-pressure chronic ulcer of left calf with fat layer exposed
CPT/HCPCS: 11042; 29581; 99211; G0463

== ENCOUNTER → 2018-04-14 14:22 | Outpatient (CLI) | payer MEDICARE, SELFPAY ==
[2016-12-05 15:47] VITALS: BMI 35.6
[2018-04-14 16:00] LABS: Absolute Lymphocyte Count 2.75 X10^3/ul (0.83-4.51); Absolute Neutrophil Count 9.4 X10^3/uL (2.0-7.7); Basophil# 0.04 X10^3/uL; Basophil% 0.3 % (0-1); Eosinophil# 0.27 X10^3/uL; Eosinophils% 2.1 % (0-5); Hematocrit 32.2 % (37-47); Hemoglobin 9.7 g/dl (12.0-15.0); Lymphocyte # 2.75 X10^3/ul (4.0); Lymphocyte % 21.2 % (19-41); Mean Corp Hgb Conc 30.1 g/gl (32-36); Mean Corpuscular Hgb 28.2 pg (27.0-32.0); Mean Corpuscular Volume 93.6 fL (81-99); Mean Platelet Vol. 10.1 fl (6.2-12.0); Monocyte# 0.48 X10^3/uL; Monocyte% 3.7 % (0-10); Neutrophil # 9.39 X10^3/uL (2.7-7.7); Neutrophil % 72.4 % (47-70); Platelet Count 197 K/mm3 (150-450); RBC Distribution Width CV 19.3 % (11.6-14.6); RBC Distribution Width SD 65.6 fl (35.1-43.9); Red Blood Count 3.44 M/mm3 (4.2-5.4)
[2018-04-14 16:02] LABS: Differential Indicated SCAN CRITERIA MET; POSITIVE COUNT NO; POSITIVE DIFFERENTIAL NO; POSITIVE MORPHOLOGY YES
[2018-04-14 16:52] LABS: Differential Comment SCANNED
[2018-04-14 16:54] LABS: ALB/GLOB Ratio 0.8 RATIO (0.9-2.4); AST(SGOT) 17 U/L (15-37); Alanine Aminotransfer ALT/SGPT 16 U/L (13-56); Alkaline Phosphatase 111 U/L (45-117); Anion Gap 8 (5-15); BUN 45 mg/dL (7-18); BUN/Creat Ratio 25.6 RATIO (10-20); Calcium,Total 8.8 mg/dL (8.5-10.1); Chloride 105 mmol/L (98-107); Creatinine, Serum 1.76 mg/dL (0.55-1.02); EST Glomerular Filtration Rate 30 mL/min (>60); Est Glom Filt Rate - Afr Amer 37 mL/min (>60); Glucose 204 mg/dL (74-106); Potassium 4.6 mmol/L (3.5-5.1); Sodium Level 140 mmol/L (136-145); Uric Acid 4.1 mg/dL (2.6-6.0)
== END ==
PROVIDERS: Family Provider Nurse Practitioner; PCP Nurse Practitioner; Visit Provider Internal Medicine Rheumatology
DX: M06.071 Rheumatoid arthritis without rheumatoid factor, right ankle and foot (principal); M17.0 Bilateral primary osteoarthritis of knee; M10.00 Idiopathic gout, unspecified site; M21.40 Flat foot [pes planus] (acquired), unspecified foot; I26.99 Other pulmonary embolism without acute cor pulmonale; I10 Essential (primary) hypertension; E78.5 Hyperlipidemia, unspecified; Z86.718 Personal history of other venous thrombosis and embolism
CPT/HCPCS: 36415; 80053; 84550; 85025

== ENCOUNTER 2018-04-15 15:30 | Outpatient (RCR) | payer MEDICARE, SELFPAY ==
[2016-12-05 15:47] VITALS: BMI 35.6
[2018-03-30 00:45] VITALS: BP 141/74; PULSE 63; RESP 18; TEMP 37; BMI 36.6
[2018-04-01 16:02] VITALS: BP 153/88; PULSE 65; RESP 16; TEMP 36.4; BMI 36.6
[2018-04-15 15:20] VITALS: BP 128/71; PULSE 62; RESP 18; TEMP 36.4; BMI 36.6
--- NOTE | 2018-04-15 20:37 | PCM.WC.PN ---
(1) Ulcer of left lower extremity with fat layer exposed Status: Acute Code(s): L97.922 - Non-pressure chronic ulcer of unspecified part of left lower leg with fat layer exposed Comment: mixed venous arterial left posterior calf (2) Chronic steroid use Status: Chronic (3) DM2 (diabetes mellitus, type 2) Status: Chronic Code(s): E11.9 - Type 2 diabetes mellitus without complications (4) HTN (hypertension) Status: Chronic Qualifiers: Code(s): I10 - Essential (primary) hypertension (5) PVD (peripheral vascular disease) Status: Chronic Code(s): I73.9 - Peripheral vascular disease, unspecified (6) S/P angioplasty with stent Status: Chronic Code(s): Z95.9 - Presence of cardiac and vascular implant and graft, unspecified Comment: EDGARDO to mid LAD 12/05/2016 (7) Rheumatoid arthritis Status: Suspected Code(s): M06.9 - Rheumatoid arthritis, unspecified Comment: she sees Dr. Wiggins and is on Plaquenil and Prednisone Type of Wound Date of Service: 04/15/18 Chief Complaint: ulcers on the back of left leg that arent healing History of Wound: This is a 72-year-old white female who presents to the wound healing center today with complaint of nonhealing ulcers on the left posterior lower extremity which has been going on intermittently since 2013. She was recently admitted to [facility] from through 12/27/17 for severe sepsis and cellulitis of the left leg. She was treated with IV antibiotics and sent home on penicillin V potassium 4 times daily for 7 days and was instructed to follow-up with infectious disease and with the wound healing center. She does have a past medical history which is significant for coronary artery disease, paroxysmal atrial fibrillation, type 2 diabetes mellitus, RA,depression, hyperlipidemia, hypertension, CKD, peripheral vascular disease, and chronic lymphedema. Her wound treatments so far has been covering the ulcers with a bandage and EDER wraps. She does state that the cellulitis has improved and that the pain has improved as well. She denies any discharge or foul-smelling odor from the wound. She did have arterial studies done in November 2015 which demonstrated left TBI of 0.6 and right TBI of 0.34 her vascular study at that time was suggestive of severe distal small vessel arterial occlusive disease in the right lower extremity and moderate distal small vessel arterial occlusive disease in the left lower extremity. She states that her diabetes is typically well controlled and that she has a chronic problem with ulcers in her lower extremities ever since having skin grafts placed in the past. The patient otherwise denies any fever, chills, nausea, vomiting, shortness of breath, chest pain or pressure, palpitations, orthopnea, syncope or presyncopal episodes. Progress of Wound: stable, slow improvement - Physical Exam Vital Signs Temp Pulse Resp BP 97.5 F L 62 18 128/71 H 04/15/18 15:20 04/15/18 15:20 04/15/18 15:20 04/15/18 15:20 General: Alert, Oriented x3, Cooperative, No apparent distress HEENT: Atraumatic Cardiovascular: Regular rate Extremities: Diminished Peripheral Pulses, Edema - generalize BLLE edema Skin: Ulcer/ Wound - Cluster ulcer present left posterior calf, small amount of slough adherent to the wound bed, wound bed is moist, however not macerated. No signs of infection at this time. Neurological: Neuro grossly intact Psych/Mental Status: Normal Affect, Alert and oriented to time, place, person, mood and affect Debridement Note Post-Debridement Measurements/Treatment WC - Nurse 2 - General Ulcer CM Notes Start: 04/01/18 16:02 Freq: Status: Active Protocol: Activity Type Activity Date Activity User E-Sign Co-Sign Detail Recorded Client Recorded Date Recorded By Document 04/15/18 16:06 BABATUNDE [id number] 04/15/18 16:08 BABATUNDE 04/15/18 16:06 Wound Center Nurse 2 #6- LT CALF CLUSTER -Time 16:06 -Correct Patient Yes -Correct Side, Site, Position Yes -Correct Procedure Yes -Procedure Performed Yes -Type of Procedure Debridement -Clinical Debridement Subcutaneous -Post Debridement Size (cm) - Length 2.8 -Post Debridement Size (cm) - Width 3.3 -Post Debridement Size (cm) - Depth 0.2 -Total Square Cm 9.24 -Wound/Ulcer Outcome Not Healed -Ulcer Cleansing Rinsed/ Irrigated with Saline -Foul Odor after Cleansing No -Bioengineered Tissue No -Topical Lidocaine (%) 4 -Lidocaine (ml) 5 -Bleeding Controlled with NA -Treatment Response Procedure Tolerated Well Pain Scale: 0-10 Numeric Is Patient Pain Free? Yes Wound debrided: Left posterior calf Laterality: Left Type of Debridement: Excisional debridement Anesthesia Used: 5% Lidocaine Gel Depth: in the subcutaneous layer Percentage of wound debrided: 100 Instrument Used: 3mm curette Tissue Removed: Slough and fibrous tissue Severity: Fat Layer Exposed Amount of bleeding with debridement: Mild Bleeding Controlled with: Pressure Patient tolerated procedure well Assessment/Plan Assessment: Nonhealing ulcer left lower extremity, wound stable slowly improving, Did discuss with patient the importance of having a vascular consultation given her mixed venous and arterial status. A referral was placed for vascular previously. The patient is unwilling to see a vascular specialist at this time. Given the delayed wound healing, previously applied for the use of Epifix, which is pending. Plan: The patient was seen and evaluated at the wound healing center today and updated on her plan of care. 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 Previous vascular studies reviewed from 2016 and demonstrated arterial occlusive disease. Repeat vascular studies demonstrated TBI right 0.41 and left 0.43, indicative of arterial disease and therefore placed referral to vascular surgeon Dr. Herring to discuss possible vascular intervention, patient wishes to hold off at this time. Venous studies did demonstrate venous insufficiency. Cultures collected and demonstrated staph aureus which is susceptible to clindamycin, patient started on Clinda 3 times daily for 7 days and completed this. Patient's cellulitis is resolved. Blood work ordered and reviewed A1c 6.3 and pre-albumin slightly low, advised to increase protein in the diet. A subcutaneous debridement was performed during today's visit and the patient tolerated this well. patient did follow-up with infectious disease as she was referred after her hospital stay who stated that she did not require any antibiotics additionally at this time. Daily dressing changes to include a thin application of hydrogel with Adaptic and covered with gauze. Light compression at this time with Eder wraps due to poor arterial status. Applied for Epifix previously. Discussed with patient the importance of diet and nutrition and wound healing and that she should try to keep her blood sugars under control. Patient verbalized understanding. Discussed with patient red flag symptoms of systemic infection that require urgent medical attention. Patient will otherwise follow-up in the wound center in 1 week. Patient is seeking wound clearance for a bladder mesh surgery from her SOLE BUFFER, from a wound standpoint she is stable and cleared. Did recommend that she obtain clearance from her suspension cord tier and PCP as well. This note was generated with [employer] software. It may contain incorrect words, spelling, and punctuation that were not noted in checking the note before signing. Code Visit 111xxx-113xx: [id number] Galina subq tissue 20 sq cm/<
--- NOTE | 2018-04-21 08:43 | PN.PCM_ITS ---
(1) Ulcer of left lower extremity with fat layer exposed Status: Acute Code(s): L97.922 - Non-pressure chronic ulcer of unspecified part of left lower leg with fat layer exposed Comment: mixed venous arterial left posterior calf (2) Chronic steroid use Status: Chronic (3) DM2 (diabetes mellitus, type 2) Status: Chronic Code(s): E11.9 - Type 2 diabetes mellitus without complications (4) HTN (hypertension) Status: Chronic Qualifiers: Code(s): I10 - Essential (primary) hypertension (5) PVD (peripheral vascular disease) Status: Chronic Code(s): I73.9 - Peripheral vascular disease, unspecified (6) S/P angioplasty with stent Status: Chronic Code(s): Z95.9 - Presence of cardiac and vascular implant and graft, unspecified Comment: EDGARDO to mid LAD 12/05/2016 (7) Rheumatoid arthritis Status: Suspected Code(s): M06.9 - Rheumatoid arthritis, unspecified Comment : she sees Dr. Wiggins and is on Plaquenil and Prednisone Type of Wound Date of Service: 04/15/18 Chief Complaint: ulcers on the back of left leg that arent healing History of Wound: This is a 72-year-old white female who presents to the wound healing center today with complaint of nonhealing ulcers on the left posterior lower extremity which has been going on intermittently since 2013. She was recently admitted to [facility] from through 12/27/17 for severe sepsis and cellulitis of the left leg. She was treated with IV antibiotics and sent home on penicillin V potassium 4 times daily for 7 days and was instructed to follow-up with infectious disease and with the wound healing center. She does have a past medical history which is significant for coronary artery disease, paroxysmal atrial fibrillation, type 2 diabetes mellitus, RA,depression, hyperlipidemia, hypertension, CKD, peripheral vascular disease, and chronic lymphedema. Her wound treatments so far has been covering the ulcers with a bandage and EDER wraps. She does state that the cellulitis has improved and that the pain has improved as well. She denies any discharge or foul-smelling odor from the wound. She did have arterial studies done in November 2015 which demonstrated left TBI of 0.6 and right TBI of 0.34 her vascular study at that time was suggestive of severe distal small vessel arterial occlusive disease in the right lower extremity and moderate distal small vessel arterial occlusive disease in the left lower extremity. She states that her diabetes is typically well controlled and that she has a chronic problem with ulcers in her lower extremities ever since having skin grafts placed in the past. The patient otherwise denies any fever, chills, nausea, vomiting, shortness of breath, chest pain or pressure, palpitations, orthopnea, syncope or presyncopal episodes. Progress of Wound: stable, slow improvement - Physical Exam Vital Signs Temp Pulse Resp BP 97.5 F L 62 18 128/71 H 04/15/18 15:20 04/15/18 15:20 04/15/18 15:20 04/15/18 15:20 General: Alert, Oriented x3, Cooperative, No apparent distress HEENT: Atraumatic Cardiovascular: Regular rate Extremities: Diminished Peripheral Pulses, Edema - generalize BLLE edema Skin: Ulcer/ Wound - Cluster ulcer present left posterior calf, small amount of slough adherent to the wound bed, wound bed is moist, however not macerated. No signs of infection at this time. Neurological: Neuro grossly intact Psych/Mental Status: Normal Affect, Alert and oriented to time, place, person, mood and affect Debridement Note Post-Debridement Measurements/Treatment WC - Nurse 2 - General Ulcer CM Notes Start: 04/01/18 16:02 Freq: Status: Active Protocol: Activity Type Activity Date Activity User E-Sign Co-Sign Detail Recorded Client Recorded Date Recorded By Document 04/15/18 16:06 BABATUNDE [id number] 04/15/18 16:08 BABATUNDE 04/15/18 16:06 Wound Center Nurse 2 #6- LT CALF CLUSTER -Time 16:06 -Correct Patient Yes -Correct Side, Site, Position Yes -Correct Procedure Yes -Procedure Performed Yes -Type of Procedure Debridement -Clinical Debridement Subcutaneous -Post Debridement Size (cm) - Length 2.8 -Post Debridement Size (cm) - Width 3.3 -Post Debridement Size (cm) - Depth 0.2 -Total Square Cm 9.24 -Wound/Ulcer Outcome Not Healed -Ulcer Cleansing Rinsed/ Irrigated with Saline -Foul Odor after Cleansing No -Bioengineered Tissue No -Topical Lidocaine (%) 4 -Lidocaine (ml) 5 -Bleeding Controlled with NA -Treatment Response Procedure Tolerated Well Pain Scale: 0-10 Numeric Is Patient Pain Free? Yes Wound debrided: Left posterior calf Laterality: Left Type of Debridement: Excisional debridement Anesthesia Used: 5% Lidocaine Gel Depth: in the subcutaneous layer Percentage of wound debrided: 100 Instrument Used: 3mm curette Tissue Removed: Slough and fibrous tissue Severity: Fat Layer Exposed Amount of bleeding with debridement: Mild Bleeding Controlled with: Pressure Patient tolerated procedure well Assessment/Plan Assessment: Nonhealing ulcer left lower extremity, wound stable slowly improving , Did discuss with patient the importance of having a vascular consultation given her mixed venous and arterial status. A referral was placed for vascular previously. The patient is unwilling to see a vascular specialist at this time. Given the delayed wound healing, previously applied for the use of Epifix , which is pending. Plan: The patient was seen and evaluated at the wound healing center today and updated on her plan of care. 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 Previous vascular studies reviewed from 2016 and demonstrated arterial occlusive disease. Repeat vascular studies demonstrated TBI right 0.41 and left 0.43, indicative of arterial disease and therefore placed referral to vascular surgeon Dr. Herring to discuss possible vascular intervention, patient wishes to hold off at this time. Venous studies did demonstrate venous insufficiency. Cultures collected and demonstrated staph aureus which is susceptible to clindamycin, patient started on Clinda 3 times daily for 7 days and completed this. Patient's cellulitis is resolved. Blood work ordered and reviewed A1c 6.3 and pre-albumin slightly low, advised to increase protein in the diet. A subcutaneous debridement was performed during today's visit and the patient tolerated this well. patient did follow-up with infectious disease as she was referred after her hospital stay who stated that she did not require any antibiotics additionally at this time. Daily dressing changes to include a thin application of hydrogel with Adaptic and covered with gauze. Light compression at this time with Eder wraps due to poor arterial status. Applied for Epifix previously. Discussed with patient the importance of diet and nutrition and wound healing and that she should try to keep her blood sugars under control. Patient verbalized understanding. Discussed with patient red flag symptoms of systemic infection that require urgent medical attention. Patient will otherwise follow-up in the wound center in 1 week. Patient is seeking wound clearance for a bladder mesh surgery from her BUSINESS INTEGRATION ANALYST, from a wound standpoint she is stable and cleared. Did recommend that she obtain clearance from her setter molding and coremaking machines and PCP as well. This note was generated with [employer]ation software. It may contain incorrect words, spelling, and punctuation that were not noted in checking the note before signing. Code Visit 111xxx-113xx: [id number] Galina subq tissue 20 sq cm/<
== END 2018-04-29 23:59 ==
LOC: WC 15:30
PROVIDERS: Family Provider Nurse Practitioner; PCP Nurse Practitioner; Visit Provider Nurse Practitioner Family
DX: L97.922 Non-pressure chronic ulcer of unspecified part of left lower leg with fat layer exposed (principal); I77.1 Stricture of artery; E11.9 Type 2 diabetes mellitus without complications; I10 Essential (primary) hypertension; Z79.52 Long term (current) use of systemic steroids; I73.9 Peripheral vascular disease, unspecified; M06.9 Rheumatoid arthritis, unspecified; Z95.9 Presence of cardiac and vascular implant and graft, unspecified
CPT/HCPCS: 11042; 99212; G0463

== ENCOUNTER 2018-04-18 18:45 | Emergency (ER) | payer MEDICARE, SELFPAY ==
[2016-12-05 15:47] VITALS: BMI 35.6
[2018-04-18 18:46] VITALS: BP 155/49; PULSE 85; RESP 16; TEMP 36.6; O2SAT 100; BMI 37.8
--- NOTE | 2018-04-18 19:47 | EKG12_ITS ---
Test Reason : SOB Blood Pressure : / mmHG Vent. Rate : 084 BPM Atrial Rate : 084 BPM P-R Int : 176 ms QRS Dur : 092 ms QT Int : 388 ms P-R-T Axes : 060 -16 040 degrees QTc Int : 458 ms Normal sinus rhythm Left ventricular hypertrophy with repolarization abnormality Abnormal ECG Confirmed by CHRIS MORELAND, ROBBY ([id number]), primer expeditor and drier ANDREIA MONTERO ([id number]) on 04/20/2018 3:01:25 PM Referred By: Confirmed By:ROBBY PEREZ MD
--- NOTE | 2018-04-18 19:47 | RAD_ITS ---
STUDY: X-RAY CHEST REASON FOR EXAM: Female, 72 years old. Short of breath TECHNIQUE: AP portable COMPARISON: February 24, 2018 FINDINGS: The lungs are clear and expanded. There is no demonstrated pleural abnormality. Normal size heart. Normal mediastinum and lalit. Normal visualized pulmonary arteries. Mildly calcified aortic arch and descending thoracic aorta. Dorsal spine demonstrates spondylosis. Normal visualized ribs, clavicles, and shoulders. There is no demonstrated abnormality of the visualized soft tissue structures of the upper abdomen. RAD/Chest 1 View (Portable) IMPRESSION: No acute cardiopulmonary pathology Electronically Signed: Catalino Russell MD at 20:58 EDT , Service support ,
--- NOTE | 2018-04-18 19:48 | ED.VISSUMM ---
- ER Visit Summary Date of Service: 04/18/18 Chief Complaint: [] Shortness of breath History of Present Illness: The patient is a 72 F [] linear shortness of breath beginning yesterday. Patient reports this is typically more dyspnea on exertion with ambulation. She reports progressive increase in lower extremity edema bilaterally in a symmetric fashion. Denies chest pain. Denies abdominal pain. Denies any previous history of congestive heart failure. Does report a past medical history of CAD with one stent last year, diabetes, hypertension, cholesterol, osteoarthritis. No other complaints at this time. She is conversational during history and physical examination. Physical Examination: [] Afebrile, vital signs stable. 72-year-old female in no acute distress. Conversational. Cardiovascular exam is regular rate and rhythm. Lungs are clear to auscultation with diminished breath sounds at the bases. Abdomen is obese, soft, nontender. There is 1+ symmetric lower extremity edema. To note there is irregular scarring bilaterally from a reported skin infection to the lower extremities. Test Results: [] EKG: Normal sinus rhythm, rate of 84 without ectopy or ischemic changes. Labs: White blood cell count elevated 15.8. Electrolytes reveal a BUN and creatinine of 64 and 2.36, respectively. INR 1.1. Troponin negative. BNP 30.9. Chest x-ray: Negative. Emergency Department Course and Treatment: [] In reviewing patient's laboratory work the BUN and creatinine were in the mid range for patient's previous creatinine values. This does not represent any new pathology. Her EKG is unremarkable. Her chest x-ray is unremarkable. Her BNP is 30.9. Because she feels she is retaining fluid slightly I did provide a small dose of Lasix 20 mg IV. She was encouraged to follow-up with her primary care physician and return if symptoms worsen. On serial exam she felt improved and was amenable to discharge and close follow-up. She was counseled regarding her diagnostic and laboratory findings. Adult daughter at the bedside is also amenable to discharge and follow-up. Treatment Plan: [] Follow-up with PCP. Return if symptoms worsen. Disposition: [] Discharge, stable. Impression: [] Dyspnea, unknown etiology Renal insufficiency This note was generated with Adaptive [employer]ation software. It may contain incorrect words, spelling, and punctuation that were not noted in review of the chart prior to signing ED Disposition - Plan for ED Patient: Chief Complaint: Shortness of Breath Referrals: Sonja Feliciano [Primary Care Provider] -
[2018-04-18] MEDS: Aspirin 81 MG TAB.CHEW 324 MG PO (20:06)
[2018-04-18 20:09] VITALS: O2SAT 100
[2018-04-18 20:10] VITALS: O2SAT 100
[2018-04-18 20:16] LABS: Absolute Lymphocyte Count 4.24 X10^3/ul (0.83-4.51); Basophil# 0.05 X10^3/uL; Basophil% 0.3 % (0-1); Eosinophil# 0.42 X10^3/uL; Eosinophils% 2.7 % (0-5); Hematocrit 32.6 % (37-47); Hemoglobin 10.1 g/dl (12.0-15.0); Lymphocyte # 4.24 X10^3/ul (4.0); Lymphocyte % 26.9 % (19-41); Mean Corpuscular Hgb 28.6 pg (27.0-32.0); Mean Corpuscular Volume 92.4 fL (81-99); Monocyte# 1.05 X10^3/uL; Monocyte% 6.7 % (0-10); Neutrophil # 9.96 X10^3/uL (2.7-7.7); Platelet Count 152 K/mm3 (150-450); RBC Distribution Width CV 19.6 % (11.6-14.6); RBC Distribution Width SD 65.8 fl (35.1-43.9); Red Blood Count 3.53 M/mm3 (4.2-5.4); White Blood Count 15.8 K/mm3 (4.4-11.0)
[2018-04-18 20:17] LABS: Differential Indicated SCAN CRITERIA MET; POSITIVE COUNT NO; POSITIVE DIFFERENTIAL NO; POSITIVE MORPHOLOGY YES
[2018-04-18 20:22] LABS: International Normalized Ratio 1.1; Prothrombin Time (Protime)PT. 14.1 SECONDS (11.7-14.9)
[2018-04-18 20:32] LABS: Anion Gap 9 (5-15); BUN 64 mg/dL (7-18); BUN/Creat Ratio 27.1 RATIO (10-20); Calcium,Total 9.5 mg/dL (8.5-10.1); Chloride 101 mmol/L (98-107); Creatinine, Serum 2.36 mg/dL (0.55-1.02); EST Glomerular Filtration Rate 22 mL/min (>60); Est Glom Filt Rate - Afr Amer 26 mL/min (>60); Estimated Creatinine Clearance 17.29 ml/min; Glucose 134 mg/dL (74-106); Potassium 3.9 mmol/L (3.5-5.1); Sodium Level 134 mmol/L (136-145)
[2018-04-18 20:39] LABS: BNP,B-Type NATRIURETIC PEPTIDE 30.9 pg/mL (0-100)
[2018-04-18 20:44] LABS: Anisocytosis RARE; Macrocytosis RARE; Platelet Estimate ADEQUATE (ADEQ)
[2018-04-18 20:59] VITALS: BP 154/80; PULSE 85; RESP 16; O2SAT 100
[2018-04-18 22:11] VITALS: BP 170/73; PULSE 83; RESP 16; O2SAT 99
--- NOTE | 2018-04-18 22:18 | ED.DEP ---
ED Disposition - Plan for ED Patient: Disposition: Home or Assisted Living Chief Complaint: Shortness of Breath Instructions: ED Insufficiency Renal Referrals: Sonja Feliciano [Primary Care Provider] -
[2018-04-18] MEDS: Furosemide 20 MG/2 ML VIAL IV (22:43)
[2018-04-18 23:14] VITALS: BP 171/95; PULSE 86; RESP 16; O2SAT 100
--- NOTE | 2018-04-19 15:57 | CM.ED ---
ED CALLBACK: Follow-up call placed to patient. Left voicemail with return contact information.
== END 2018-04-18 23:15 | disposition home or self-care (01) ==
PROVIDERS: Emergency Provider Emergency Medicine; Family Provider Nurse Practitioner; PCP Nurse Practitioner
DX: R06.00 Dyspnea, unspecified (principal); N28.9 Disorder of kidney and ureter, unspecified; R60.0 Localized edema; L90.5 Scar conditions and fibrosis of skin; I25.10 Atherosclerotic heart disease of native coronary artery without angina pectoris; E11.9 Type 2 diabetes mellitus without complications; I10 Essential (primary) hypertension; E78.00 Pure hypercholesterolemia, unspecified; M19.90 Unspecified osteoarthritis, unspecified site; Z95.5 Presence of coronary angioplasty implant and graft; Z79.82 Long term (current) use of aspirin; Z79.4 Long term (current) use of insulin; Z79.899 Other long term (current) drug therapy
CPT/HCPCS: 71045; 80048; 83880; 84484; 85025; 85610; 93005; 96374; 99285; J1940

== ENCOUNTER 2018-05-04 11:00 | Outpatient (RCR) | payer MEDICARE, SELFPAY ==
[2016-12-05 15:47] VITALS: BMI 35.6
--- NOTE | 2018-05-04 11:00 | DT_ITS ---
This patient was seen during an EMR downtime May 03, 2018 - May 10, 2018. This patient may have a combination of paper and electronic documentation or all paper documentation. All documentation is viewable within the e-chart portion of [facility] for each patient visit.
--- NOTE | 2018-05-16 16:49 | HP.PTEVAL_ITS ---
Patient's Visit Information DEVORAH ALLAN is a 72 year old F referred to Physical Therapy by Mimi Torres with a diagnosis of REDUCED MOBILITY. Date of Evaluation: 05/16/18 Physical Therapist: Kalie Monzon - Visit Plan Frequency: 1x/Week Duration: 1 Week Plan: D/C. PRE-OP EVALUATION AND GAIT TRAINING TODAY. PATIENT DEMONSTRATED AND COMMUNICATED A GOOD UNDERSTANDING OF PROPER GAIT SEQUENCING FOR SAFETY TODAY. 2 HANDRAILS REQUIRED ON STEPS. RECOMMENDED WALKER FOR SAFETY ON LEVEL SURFACES. PATIENT MAY BENEFIT FROM PHYSICAL THERAPY FOR GAIT TRAINING AND STRENGTHEING POST SURGERY. - Subjective Subjective: THIS PATIENT PRESENTS TO PT REPORTING MONE IS HAVING PRE-OP TESTING SO SHE CAN HAVE SURGERY FOR HER BLADDER WITH DR. TORRES. SHE IS RETIRED. PATIENT REPORTS SHE DOES GET INCREASED LISBET KNEE PAIN WHEN SHE IS UP AND ABOUT A LOT BUT TYPICALLY HAS NO PAIN AT REST. SHE DENIES PAIN OTHERWISE. PLANS TO SEE A KNEE SPECIALIST AGAIN WHEN ABLE. REPORTS STARTED USING A FWW WHEN OUT AND ABOUT 2 MONTHS AGO DUE TO KNEES OCCASSIONALLY BUCKLING. CANE IN THE HOUSE. CANE FOR 4 MONTHS OR SO NOW. NO AD'S PRIOR. NO FALLS. LIVES WITH DAUGHTER WHOM HELPS HER NEEDED. INDEP WITH SELF CARE. STEPS: 10 STEPS TO GET TO LIVING AREA. 2 HANDRAILS. SHE DOES NOTE HAVING A PINCH PAIN IN HER BLADDER AREA IF SHE SITTS DOWN HARD. INTERMITTENT LISBET KNEE PAIN RANGING 0-6/10. STATES SHE WENT OFF BLOOD THINNERS IN NOV 2017. NO RECENT KNEE X-RAYS (MOST RECENT 2015). HER GOAL IS TO BE ABLE TO GET AROUND LIKE SHE USE TO. PMH: NOV 2016 - ONE HEART STENT (REPORTS THIS PROBLEM WAS FOUND WHEN SHE WAS DOING PRE- OP PREVIOUSLY FOR THIS SAME SURGERY). 2014 CELLULITIS LISBET LE'S. H/O CIRCULATION PROBLEMS NOW AND LISBET GREAT TOE NUMBNESS. - Objective THIS PATIENT AMBULATES INDEP'LY INTO PT WITH FWW X > 300 FEET CONTINUOUS WITHOUT SOB. PATIENT USES GOOD TECHNIQUE WITH THE FWW AND NO LOB NOTED. CADANCE IS SLOW, SYMMETRICAL AND CAUTIOUS. TRANSFERS - INDEP SIT TO STAND AND REVERSE WITH UE ASSIST, INDEP SIT TO SUPINE AND REVERSE. LE: SENSATION - DECREASED GREAT TOE LIGHT TOUCH LISBET. STRENGTH: POOR CORE STRENGTH. LISBET LE'S 4 -5 WITH MMT'ING. ROM: RIGHT KNEE AROM IN SUPINE WITH A HEEL SLIDE = 0 DEG EXT TO 105 DEG FLEX. LEFT KNEE = 0 DEG EXT TO 109 DEG FLEX. PALPATION: MILD TENDERNESS LISBET ANTERIOR KNEES. OBSERVATION - LISBET LEG SCARRING FROM CELLULITIS. LISBET UE AND LE BRUISING. BALANCE: INDEP AND SAFE GAIT WITH FWW. INDEP GAIT UP AND DOWN STEPS WITH STEP TO PATTERN WITH 2 HANDRAILS. - Goals Goal 1:: INDEP AND SAFE GAIT WITH LEAST ASSISTIVE DEVICE ON LEVEL SURFACES AND STEPS Goal Time Frame: 1 VISIT - Rehabilitation Potential Rehabilitation Potential: Fair - Anticipated Interventions Thank you for the opportunity to evaluate your patient. For Medicare and Medicare HMO plans, please review the plan of care and approve it. It will need to be FAXED BACK to us at [phone] for Medicare purposes. Please let me know if there are questions or concerns regarding this plan of care. Physician Signature: Date:
--- NOTE | 2018-08-26 13:22 | HP.PT.NRP ---
HP - Discharge Summary (1) - Patient Information DEVORAH ALLAN was seen in my office for initial evaluation on 05/16/18. The following Plan of Care was established for this patient: Initial Frequency: 1x/Week Initial Duration: 1 Week This patient was last seen in our office 05/04/18. Pertinent comments regarding their Physical therapy will appear below: ONE TIME VISIT ONLY At this point I will be discontinuing this patient from physical therapy. I would be happy to see this patient again in the future if found appropriate by the physician. Thank you! Kalie Monzon
== END 2018-05-04 19:00 | disposition home or self-care (01) ==
LOC: PT 11:00
PROVIDERS: Family Provider Nurse Practitioner; PCP Nurse Practitioner; Visit Provider Obstetrics & Gynecology
DX: Z74.09 Other reduced mobility (principal)
CPT/HCPCS: 97116; 97162; G8978; G8979; G8980

== ENCOUNTER → 2018-06-09 15:36 | Outpatient (CLI) | payer MEDICARE, SELFPAY ==
[2016-12-05 15:47] VITALS: BMI 35.6
[2018-06-09 16:43] LABS: Absolute Neutrophil Count 9.6 X10^3/uL (2.0-7.7); Basophil# 0.03 X10^3/uL; Basophil% 0.2 % (0-1); Eosinophil# 0.14 X10^3/uL; Eosinophils% 1.1 % (0-5); Hematocrit 31.3 % (37-47); Hemoglobin 9.8 g/dl (12.0-15.0); Lymphocyte % 15.5 % (19-41); Mean Corp Hgb Conc 31.3 g/gl (32-36); Mean Corpuscular Hgb 29.5 pg (27.0-32.0); Mean Corpuscular Volume 94.3 fL (81-99); Monocyte# 0.51 X10^3/uL; Monocyte% 4.2 % (0-10); Neutrophil # 9.59 X10^3/uL (2.7-7.7); Neutrophil % 78.5 % (47-70); Platelet Count 256 K/mm3 (150-450); RBC Distribution Width CV 16.1 % (11.6-14.6); RBC Distribution Width SD 53.5 fl (35.1-43.9); Red Blood Count 3.32 M/mm3 (4.2-5.4); White Blood Count 12.2 K/mm3 (4.4-11.0)
[2018-06-09 16:44] LABS: International Normalized Ratio 1.1
[2018-06-09 16:45] LABS: POSITIVE COUNT NO; POSITIVE DIFFERENTIAL NO; POSITIVE MORPHOLOGY NO
[2018-06-09 16:55] LABS: Albumin, Serum 2.8 g/dL (3.2-5.0); BUN 38 mg/dL (7-18); BUN/Creat Ratio 17.9 RATIO (10-20); Calcium,Total 9.2 mg/dL (8.5-10.1); Chloride 101 mmol/L (98-107); Creatinine, Serum 2.12 mg/dL (0.55-1.02); EST Glomerular Filtration Rate 24 mL/min (>60); Est Glom Filt Rate - Afr Amer 30 mL/min (>60); Ferritin 209 ng/mL (8-252); Glucose 164 mg/dL (74-106); Iron 25 ug/dL (50-170); Iron Binding Capacity,Total 243 ug/dL (250-450); Potassium 4.1 mmol/L (3.5-5.1); Sodium Level 137 mmol/L (136-145)
== END ==
PROVIDERS: Family Provider Nurse Practitioner; PCP Nurse Practitioner; Visit Provider Internal Medicine Nephrology
DX: Z01.818 Encounter for other preprocedural examination (principal); E11.22 Type 2 diabetes mellitus with diabetic chronic kidney disease; N18.3 Chronic kidney disease, stage 3 (moderate); D50.9 Iron deficiency anemia, unspecified; R06.02 Shortness of breath
CPT/HCPCS: 36415; 80069; 82728; 83540; 83550; 85025; 85610

== ENCOUNTER → 2018-06-10 11:00 | Outpatient (CLI) | payer MEDICARE, SELFPAY ==
[2016-12-05 15:47] VITALS: BMI 35.6
[2018-06-10 12:18] VITALS: BP 141/76; PULSE 72; RESP 17; TEMP 36.2; O2SAT 99; BMI 37.0
[2018-06-10 13:34] LABS: Partial Thromboplast Time 32.9 Seconds (24.1-36.2)
[2018-06-10 13:50] LABS: AST(SGOT) 16 U/L (15-37); Alanine Aminotransfer ALT/SGPT 14 U/L (13-56); Albumin, Serum 2.8 g/dL (3.2-5.0); Alkaline Phosphatase 156 U/L (45-117); Bilirubin, Direct 0.15 mg/dL (0.00-0.30); Globulin 4.9 g/dL (2.2-4.2); Protein, Total 7.7 g/dL (6.4-8.2)
[2018-06-14 16:49] LABS: Color, Urine Yellow (Yellow); Glucose, Dipstick Normal (Normal); Ketone-Dipstick Negative (Negative); Leukocyte Esterase-Dipstick 500 /ul (Negative); Nitrite-Dipstick Negative (Negative); Occult Blood-Urine 150 /ul (Negative); Protein-Dipstick 100 mg/dl (Negative); Specific Gravity, Urine 1.015 (1.002-1.030); Urine Bilirubin Dipstick Negative (Negative); Urine Clarity Turbid (Clear); Urine Urobilinogen Normal (Normal)
== END ==
PROVIDERS: Family Provider Nurse Practitioner; PCP Nurse Practitioner; Visit Provider Obstetrics & Gynecology
DX: Z01.812 Encounter for preprocedural laboratory examination (principal); I12.0 Hypertensive chronic kidney disease with stage 5 chronic kidney disease or end stage renal disease; E11.22 Type 2 diabetes mellitus with diabetic chronic kidney disease; N18.6 End stage renal disease; Z99.2 Dependence on renal dialysis; D64.9 Anemia, unspecified; Z79.52 Long term (current) use of systemic steroids
CPT/HCPCS: 36415; 80076; 81002; 85730; 86850; 86900; 87077; 87086; 87088; 87186

== ENCOUNTER → 2018-06-14 15:31 | Outpatient (CLI) | payer MEDICARE, SELFPAY ==
[2016-12-05 15:47] VITALS: BMI 35.6
== END ==
PROVIDERS: Family Provider Nurse Practitioner; PCP Nurse Practitioner; Visit Provider Urology
DX: Z00.00 Encounter for general adult medical examination without abnormal findings (principal)

== ENCOUNTER 2018-06-16 21:46 | Inpatient (IN) | payer MEDICARE, SELFPAY ==
[2016-12-05 15:47] VITALS: BMI 35.6
[2018-06-16 21:48] VITALS: BP 142/103; PULSE 87; RESP 18; TEMP 37.6; O2SAT 93; BMI 36.7
[2018-06-16 22:35] LABS: Absolute Lymphocyte Count 3.43 X10^3/ul (0.83-4.51); Basophil# 0.03 X10^3/uL; Basophil% 0.1 % (0-1); Differential Indicated SCAN CRITERIA MET; Eosinophils% 0.3 % (0-5); Hematocrit 34.8 % (37-47); Hemoglobin 10.8 g/dl (12.0-15.0); Lymphocyte # 3.43 X10^3/ul (4.0); Lymphocyte % 11.9 % (19-41); Mean Corpuscular Hgb 29.3 pg (27.0-32.0); Mean Corpuscular Volume 94.3 fL (81-99); Monocyte# 1.08 X10^3/uL; Monocyte% 3.8 % (0-10); Neutrophil % 83.6 % (47-70); POSITIVE COUNT NO; POSITIVE DIFFERENTIAL YES; POSITIVE MORPHOLOGY NO; Platelet Count 301 K/mm3 (150-450); RBC Distribution Width CV 16.4 % (11.6-14.6); RBC Distribution Width SD 56.4 fl (35.1-43.9); Red Blood Count 3.69 M/mm3 (4.2-5.4); White Blood Count 28.7 K/mm3 (4.4-11.0)
--- NOTE | 2018-06-16 22:35 | ED.DCSUM_ITS ---
- ER Visit Summary Date of Service: 06/16/18 Chief Complaint: Chills and vomiting History of Present Illness: The patient is a 72 F who presents with chills and vomiting. This began tonight shortly before presentation. She reports about 4- 5 episodes of nonbloody nonbilious emesis. She was scheduled for surgery today for a bladder sling. She had had a screening urine dip and urine culture. This was positive for infections or surgery was canceled. However until this evening she was asymptomatic. She denies dysuria frequency urgency. She denies cough congestion rhinorrhea chest pain shortness of breath. Physical Examination: Blood pressure 142/103 temperature 99.7 heart rate normal Moist mucous membranes Heart regular rate and rhythm Lungs are clear Abdomen soft nontender nondistended Alert Test Results: Labs notable for white blood cell count of 28.7. Hemoglobin is 10.8. Creatinine 1.84. Urinalysis shows 500 leukocyte esterase, 50-100 WBCs, 50-100 RBCs. Lactic acid is normal. Blood and urine cultures were sent. Emergency Department Course and Treatment: She was treated with IV fluids and Zofran and Tylenol. She was given IV Zosyn. Patient be discussed with hospitalist and admitted. Treatment Plan: [] Disposition: Admit Impression: UTI This note was generated with [employer] dictation software. It may contain incorrect words, spelling, and punctuation that were not noted in review of the chart prior to signing ED Disposition - Plan for ED Patient: Chief Complaint: Complaint Referrals: Sonja Feliciano [Primary Care Provider] -
[2018-06-16 22:47] LABS: Lactic Acid 1.9 mmol/L (0.4-2.0)
[2018-06-16 22:48] LABS: Anion Gap 9 (5-15); BUN 34 mg/dL (7-18); BUN/Creat Ratio 18.5 RATIO (10-20); Calcium,Total 9.1 mg/dL (8.5-10.1); Chloride 103 mmol/L (98-107); Creatinine, Serum 1.84 mg/dL (0.55-1.02); EST Glomerular Filtration Rate 29 mL/min (>60); Est Glom Filt Rate - Afr Amer 35 mL/min (>60); Estimated Creatinine Clearance 22.18 ml/min; Glucose 109 mg/dL (74-106); Potassium 4.4 mmol/L (3.5-5.1); Sodium Level 135 mmol/L (136-145)
[2018-06-16 23:07] LABS: Differential Comment SCANNED
[2018-06-16 23:10] LABS: Bacteria 0 SEEN /hpf (None Seen); Mucous, Urine 0 SEEN /hpf (<or=2+); Squamous Epithelial Cells - UA 0 SEEN /hpf (5-10)
[2018-06-16] MEDS: Acetaminophen 500 MG Tablet 1000 MG PO (23:16)
[2018-06-16 23:18] LABS: Color, Urine Yellow (Yellow); Glucose, Dipstick Normal (Normal); Ketone-Dipstick Negative (Negative); Leukocyte Esterase-Dipstick 500 /ul (Negative); Nitrite-Dipstick Negative (Negative); Occult Blood-Urine 250 /ul (Negative); Protein-Dipstick 100 mg/dl (Negative); Specific Gravity, Urine 1.015 (1.002-1.030); Urine Bilirubin Dipstick Negative (Negative); Urine Clarity Cloudy (Clear); Urine Urobilinogen Normal (Normal)
[2018-06-16] MEDS: 0.9% Normal Saline 1,000 ML 999 ML IV (23:19)
[2018-06-16] MEDS: Ondansetron 4 MG/2 ML Vial IV (23:19)
[2018-06-16 23:29] LABS: Red Blood Cells-Urine 50-100 SEEN /hpf (0-5); White Blood Cells 50-100 SEEN /hpf (0-5)
[2018-06-17] VITALS (10 sets, daily range): BP systolic 118–159; BP diastolic 53–78; PULSE 79–100; RESP 18–20; TEMP 37.1–38.7; O2SAT 93–99; BMI 36.8; BMI 36.9
--- NOTE | 2018-06-17 01:55 | NURSING ---
Pt arrived to the unit upon admission and c/o scattered red itchy areas on lt arm, bilat. legs, and back. Zosyn, which was nearly [facility] infused from the ED was immediately clamped and hospitalist notified. Orders given to d/c Zosyn and give IV Benadryl. Cipro ordered in place of Zosyn and Zosyn added to allergy list.
--- NOTE | 2018-06-17 02:07 | PCM.HP.STD ---
Problem List (1) Acute cystitis Status: Acute History of Present Illness Date of Admission: 06/17/18 Chief Complaint: Chills, nausea and vomitting The patient is a 72 year old F with a significant history of diabetes mellitus, hypertension, hyperlipidemia and urinary incontinence who presents because of chills, nausea and multiple episodes of vomiting that started on the night before her admission. Because of a history of urinary incontinence patient was scheduled for a bladder sling surgery. However, a routine UTI done prior to the bladder sling surgery showed an abnormal urinalysis without for which reason the surgery was deferred and patient was prescribed Macrobid. The patient took the first dose of Macrobid. Later the same day, the patient developed chills, nausea vomiting and multiple episodes of vomiting for which reason she presented to the emergency department. At emergency department urinalysis was severely abnormal. At emergency department Rocephin was avoided because patient has allergy to cephalosporins. Zosyn was prescribed only for the patient to develop hives midway while still receiving the IV infusion (Zosyn). Zosyn was stopped and she was given a dose of Benadryl. Past Medical History Past Medical History (Chronic Problems): Chronic Problems (Last Reviewed 02/24/18 @ 04:16 by Dusty Tomlinson DO) Varicose veins of both lower extremities (Chronic) Chronic renal failure, stage 4 (severe) (Chronic) Chronic steroid use (Chronic) Morbid obesity with BMI of 45.0-49.9, adult (Chronic) Osteopenia (Chronic) Pulmonary hypertension (Chronic) Personal history of DVT (deep vein thrombosis) (Chronic) Presence of IVC filter (Chronic) Lymphedema (Chronic) PVD (peripheral vascular disease) (Chronic) CAD (coronary artery disease) (Chronic) EDGARDO to mid LAD 12/05/2016; Paroxysmal atrial fibrillation (Chronic) S/P angioplasty with stent (Chronic) EDGARDO to mid LAD 12/05/2016 DM2 (diabetes mellitus, type 2) (Chronic) Dyslipidemia (Chronic) Depression (Chronic) HTN (hypertension) (Chronic) Gout (Chronic) 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) E11.59 Pulmonary hypertension I27.20 Allergies cefepime HCl [From Maxipime] Allergy (Verified 06/16/18 21:48) Itching cephalexin monohydrate [From Keflex] Allergy (Verified 06/16/18 21:48) Hives clopidogrel [From Plavix] Allergy (Verified 06/16/18 21:48) Itching and hives all over hydromorphone HCl [From Dilaudid] Adverse Reaction (Verified 06/16/18 21:48) Itching piperacillin [From Zosyn] Adverse Reaction (Verified 06/17/18 01:59) Hives tazobactam [From Zosyn] Adverse Reaction (Verified 06/17/18 01:59) Hives Home Medications: Ambulatory Orders Medication Instructions Recorded Ergocalciferol [Vitamin D] 50,000 unit PO WESA 12/19/14 predniSONE tablet 5 mg PO DAILY 12/19/14 Simvastatin [Zocor] 40 mg PO QHS 12/03/16 Hydroxychloroquine [Plaquenil] 200 mg PO BID 12/25/17 Insulin Glargine,Hum.rec.anlog 10 unit SQ QHS 01/07/18 [Lantus] Aspirin E.C. [Ecotrin] 81 mg PO QHS 06/10/18 Metoprolol Tartrate [Lopressor 100 mg PO BID 06/10/18 (beta reid)] allopurinol 300 mg tablet 300 mg PO QDAY 06/14/18 Nitrofurantoin Monohyd/M-Cryst 100 mg PO BID 06/16/18 [Macrobid 100 mg Capsule] Surgical History: Surgical History (Last Reviewed 06/17/18 @ 02:21 by Dc Santillan MD) H/O repair of rotator cuff (Resolved) Z98.890 H/O total hysterectomy (Resolved) Z90.710 Hx of appendectomy (Resolved) Z90.49 S/P angioplasty with stent (Chronic) Z95.9 EDGARDO to mid LAD 12/05/2016 Surgical History: angioplasty, hysterectomy, rotator cuff repair, - Smoking Status: Never smoker Tobacco Use: Non-smoker Alcohol: None Drugs: None - *Family History Paternal Family History: Family History (Last Reviewed 02/24/18 @ 04:16 by Dusty Tomlinson DO) Father Hypertension Brother CAD (coronary artery disease) History Items: Diabetes Maternal Family History: Family History (Last Reviewed 02/24/18 @ 04:16 by Dusty Tomlinson DO) Father Hypertension Brother CAD (coronary artery disease) History Items: Diabetes, Hypertension Review of Systems Constitutional: Reports: Chills Eyes: Denies: Blurred vision, Pain HEENT: Denies: Head Aches, Sinus Congestion, Sinus Drainage Cardiovascular: Denies: Chest Pain, Palpitations Respiratory: Denies: Cough, Shortness of breath at rest, Sputum production Gastrointestinal: Reports: Nausea, Vomiting. Denies: Abdominal Pain Genitourinary: Reports: Incontinence Musculoskeletal: Reports: Arm Pain Skin: Denies: Rash, Wounds Neurological: Denies: Numbness, Tingling, Focal weakness Psychiatric: Denies: Anxiety, Depression, Homicidal Ideations, Suicidal Ideations Hematologic/ Lymphatic: Denies: Easy Bruising, Easy Bleeding VTE Information - Inpt Only VTE Present on Admission: No VTE Mechan Device Prophylaxis: None VTE Pharm Prophylaxis ordered?: Yes Patient Problems: Active and Suspected Problems (Last Reviewed 03/28/18 @ 04:16 by Dusty Tomlinson DO) Acute cystitis (Acute) - Physical Exam General: Alert, Oriented x3, Cooperative HEENT: Atraumatic, PERRLA, EOMI, Normocephalic Neck: Supple, No JVD, Negative Carotid Bruits Lungs: Clear to auscultation, Normal air movement Cardiovascular: Regular rate Abdomen: Bowel Sounds Present, Soft, Non Tender Extremities: No edema, Capillary Refill Less than 3 Seconds Skin: No rashes, No breakdown, - - Hot to touch. Musculoskeletal: No Tenderness to Palpation of Joints or Extremities Neurological: Cranial nerves II-XII grossly intact Psych/Mental Status: Normal Affect Vital Signs Temp Pulse Resp BP Pulse Ox 99.3 F H 100 20 H 118/64 93 06/17/18 02:02 06/17/18 02:02 06/17/18 02:02 06/17/18 02:02 06/17/18 02:02 Oxygen Delivery Method Room Air Weight: 91.5 kg Body Mass Index (BMI) 36.8 Assessment/Plan All Active Problems (Last Reviewed 02/24/18 @ 04:16 by Dusty Tomlinson DO) Acute cystitis (Acute) H/O repair of rotator cuff (Resolved) H/O total hysterectomy (Resolved) Hx of appendectomy (Resolved) Cellulitis (Acute) Sepsis (Acute) Ulcer of left lower extremity with fat layer exposed (Acute) DILCIA (acute kidney injury) (Resolved) Afib (Resolved) Chronic ulcer of left leg with fat layer exposed (Resolved) DVT (deep venous thrombosis) (Resolved) Nonhealing ulcer of left lower extremity with fat layer exposed (Resolved) Pulmonary emboli (Resolved) Severe sepsis (Resolved) UTI (urinary tract infection) (Resolved) Venous stasis ulcer of leg without varicose veins (Resolved) Wound abscess (Resolved) Chronic articular rheumatism (Ruled-out) Chronic foot ulcer (Ruled-out) Pyoderma gangrenosum (Ruled-out) The patient is a 72 year old F with a significant history of diabetes mellitus, hypertension, hyperlipidemia and urinary incontinence who developed chills, nausea,multiple episodes of vomiting after an outpatient pre bladder sling surgery showed abnormal urinalysis. Her repeated urinalysis at the emergency department was severely abnormal. Her symptoms are concerning for cystitis. Acute cystitis White count of 28.7 with neutrophilic predominance Because patient is allergic to Rocephin and developed hives with Zosyn, Zosyn has been discontinued and added to her allergies. Cipro IV started. Blood cultures ?2 and urine cultures are pending. Because of episodes of nausea and vomiting, clear liquid that has been ordered. Diabetes Insulin glargine continued Correction scale insulin added. Hypertension Metoprolol continued Hyperlipidemia Lipitor continued. DVT prophylaxis with subcutaneous heparin. Code Visit Inpatient E&M: 22247 Init Hosp L2
[2018-06-17] MEDS: DiphenhydrAMINE 50 MG/ML Syringe 25 MG IV (02:38)
[2018-06-17] MEDS: 0.9% Normal Saline 1,000 ML 75 ML IV ×2 (02:39→15:48)
[2018-06-17] MEDS: Ciprofloxacin 400 MG/200 ML BAG 200 MG IV ×2 (02:39→22:23)
[2018-06-17] MEDS: Heparin Injection (Vial) 5,000 UNIT/ML VIAL 5000 UNIT SC ×3 (06:39→22:23)
[2018-06-17 06:45] LABS: Bedside Glucose 131 mg/dL (70-110)
[2018-06-17 06:49] LABS: Absolute Lymphocyte Count 1.57 X10^3/ul (0.83-4.51); Absolute Neutrophil Count 29.5 X10^3/uL (2.0-7.7); Basophil# 0.03 X10^3/uL; Basophil% 0.1 % (0-1); Eosinophil# 0.04 X10^3/uL; Eosinophils% 0.1 % (0-5); Hematocrit 32.4 % (37-47); Hemoglobin 10.1 g/dl (12.0-15.0); Lymphocyte # 1.57 X10^3/ul (4.0); Lymphocyte % 4.9 % (19-41); Mean Corp Hgb Conc 31.2 g/gl (32-36); Mean Corpuscular Hgb 29.8 pg (27.0-32.0); Mean Corpuscular Volume 95.6 fL (81-99); Mean Platelet Vol. 10.5 fl (6.2-12.0); Monocyte# 0.91 X10^3/uL; Monocyte% 2.8 % (0-10); Neutrophil # 29.49 X10^3/uL (2.7-7.7); Neutrophil % 91.7 % (47-70); Platelet Count 264 K/mm3 (150-450); RBC Distribution Width CV 16.1 % (11.6-14.6); RBC Distribution Width SD 53.9 fl (35.1-43.9); Red Blood Count 3.39 M/mm3 (4.2-5.4)
[2018-06-17 06:56] LABS: Anion Gap 9 (5-15); BUN 34 mg/dL (7-18); BUN/Creat Ratio 17.2 RATIO (10-20); Calcium,Total 8.5 mg/dL (8.5-10.1); Chloride 102 mmol/L (98-107); Creatinine, Serum 1.98 mg/dL (0.55-1.02); EST Glomerular Filtration Rate 26 mL/min (>60); Est Glom Filt Rate - Afr Amer 32 mL/min (>60); Estimated Creatinine Clearance 20.61 ml/min; Glucose 127 mg/dL (74-106); Potassium 4.4 mmol/L (3.5-5.1); Sodium Level 134 mmol/L (136-145)
[2018-06-17 06:57] LABS: Differential Indicated SCAN CRITERIA MET; POSITIVE COUNT YES; POSITIVE DIFFERENTIAL YES; POSITIVE MORPHOLOGY NO; White Blood Count 32.2 K/mm3 (4.4-11.0)
[2018-06-17] MEDS: Ondansetron 4 MG/2 ML Vial IV (06:57)
--- NOTE | 2018-06-17 08:31 | NURSING ---
DR BERNAL HERE ON UNIT - MADE AWARE OF PT TEMP 101.7, EMESIS. STATES WILL ROUND ON PT NEXT.
--- NOTE | 2018-06-17 08:33 | PCM.PN.BLA ---
Progress Note Patient is a 72-year-old lady with history of CAD status post stent placement diabetes, admitted with progressive generalized weakness. Patient was found to have acute cystitis on admission admitted to a regular nursing floor for further management 1 Acute cystitis with with negative growth patient was managed with Levaquin discontinued once cultures came back negative 2. Diabetes mellitus type 2 with complications including diabetic nephropathy. 3. Chronic kidney disease stage III secondary to diabetic nephropathy kidney function appears to be at baseline 4. Anemia secondary to anemia of chronic disorder; treat H&H with plans to transfuse if patient becomes symptomatic 5. Coronary artery disease with stent placed in November. Patient is on antiplatelet therapy as well as statins did continue 6. Chronic diastolic congestive heart failure with EF of 55% on echo obtained in 2016 patient currently compensated repeat echo ordered 7. DVT prophylaxis SC heparin
[2018-06-17] MEDS: proMETHazine 25 MG/ML Syringe 12.5 MG IM (09:16)
[2018-06-17] MEDS: Acetaminophen 325 MG Tablet 650 MG PO ×2 (09:17→22:41)
[2018-06-17 11:50] LABS: Bedside Glucose 125 mg/dL (70-110)
[2018-06-17 11:51] LABS: Pathologist Review Reviewed
--- NOTE | 2018-06-17 12:10 | CASEMGMT ---
CM INITIAL ASSESSMENT: Home: Patient lives in a one story home with her daughter. She states there are 11 steps into the home, with a rail. HHS/Aides: Denies currently having. Patient states, in 2013, she has [facility]. She was once a resident at a SNF in [place] and does not recall the name of the facility. DME: Patient states she uses a walker and cane. She denies having any further DME present or needs. Home Oxygen: Denies Pharmacy: [facility] in [place] Advance Directives: Yes, verified to be present in e-chart. Medical POA is [facility] [place]. PCP: Sonja Feliciano Specialists: Dr. Cochran, Dr. Piña, Dr. Reaves for sheduled bladder surgery. DC Plan: Home, with daughter. No needs anticipated at this time. PT/OT evals pending. CM will continue to follow for safe and effective discharge planning.
[2018-06-17 17:11] LABS: Bedside Glucose 93 mg/dL (70-110)
[2018-06-17] MEDS: Metoprolol Tartrate 100 MG Tablet PO (22:24)
[2018-06-17] MEDS: Atorvastatin Calcium 20 MG Tablet PO (22:24)
[2018-06-17] MEDS: Hydroxychloroquine 200 MG Tablet PO (22:24)
[2018-06-17 23:41] LABS: Bedside Glucose 94 mg/dL (70-110)
[2018-06-18] VITALS (8 sets, daily range): BP systolic 125–152; BP diastolic 49–69; PULSE 66–76; RESP 18–19; TEMP 36.9–37.3; O2SAT 95–99
[2018-06-18 04:06] LABS: Bedside Glucose 70 mg/dL (70-110)
[2018-06-18 04:06] LABS: Bedside Glucose 86 mg/dL (70-110)
[2018-06-18] MEDS: 0.9% Normal Saline 1,000 ML 75 ML IV (06:50)
[2018-06-18] MEDS: Heparin Injection (Vial) 5,000 UNIT/ML VIAL 5000 UNIT SC ×3 (06:50→21:30)
[2018-06-18 07:00] LABS: Bedside Glucose 95 mg/dL (70-110)
[2018-06-18 08:40] LABS: Hematocrit 29.7 % (37-47); Hemoglobin 9.2 g/dl (12.0-15.0); Mean Corpuscular Hgb 29.3 pg (27.0-32.0); Mean Corpuscular Volume 94.6 fL (81-99); Mean Platelet Vol. 9.6 fl (6.2-12.0); Platelet Count 212 K/mm3 (150-450); RBC Distribution Width CV 16.9 % (11.6-14.6); RBC Distribution Width SD 58.2 fl (35.1-43.9); Red Blood Count 3.14 M/mm3 (4.2-5.4); White Blood Count 13.9 K/mm3 (4.4-11.0)
[2018-06-18 08:43] LABS: Scan Indicated on CBC? Y/N NO
[2018-06-18 09:06] LABS: Anion Gap 8 (5-15); BUN 32 mg/dL (7-18); Calcium,Total 8.7 mg/dL (8.5-10.1); Chloride 108 mmol/L (98-107); Creatinine, Serum 1.78 mg/dL (0.55-1.02); EST Glomerular Filtration Rate 30 mL/min (>60); Est Glom Filt Rate - Afr Amer 36 mL/min (>60); Estimated Creatinine Clearance 22.93 ml/min; Glucose 73 mg/dL (74-106); Magnesium 1.6 mg/dL (1.6-2.6); Potassium 4.2 mmol/L (3.5-5.1); Sodium Level 141 mmol/L (136-145)
[2018-06-18] MEDS: Allopurinol 300 MG Tablet PO (10:08)
[2018-06-18] MEDS: Aspirin E.C. 81 MG Tablet PO (10:08)
[2018-06-18] MEDS: predniSONE 5 MG Tablet PO (10:08)
[2018-06-18] MEDS: Hydroxychloroquine 200 MG Tablet PO ×2 (10:08→21:29)
[2018-06-18] MEDS: Metoprolol Tartrate 100 MG Tablet PO ×2 (10:08→21:29)
[2018-06-18] MEDS: Ciprofloxacin 400 MG/200 ML BAG 200 MG IV ×2 (10:09→21:29)
--- NOTE | 2018-06-18 10:53 | PCM.PN.HOSP ---
Patient Problems: Active and Suspected Problems (Last Reviewed 06/17/18 @ 02:21 by Dc Santillan MD) Acute cystitis (Acute) Subjective: Patient seen Urine cultures obtained on 06/14/2018 came back positive for Streptococcus agalactiae (B) Patient is currently on appropriate antibiotic therapy Vitals/I&O's: Vital Signs Temp Pulse Resp BP Pulse Ox 99.1 F 76 18 125/49 H 96 06/18/18 10:04 06/18/18 10:08 06/18/18 10:04 06/18/18 10:04 06/18/18 10:04 Oxygen Delivery Method Room Air Weight: 91.5 kg Body Mass Index (BMI) 36.8 Intake and Output for Last 24 Hours 06/16/18 06/17/18 06/18/18 23:59 23:59 23:59 Intake Total 0 / 1670 1860 / 1860 Balance 1670 / 1670 1860 / 1860 General: Alert, Oriented x3 HEENT: Atraumatic Oral: Moist Mucosa Neck: Supple, No JVD Lungs: Diminished Cardiovascular: Regular rate, Regular Rhythm Abdomen: Non Tender, Non-Distended Extremities: No clubbing, No cyanosis Skin: No rashes Neurological: Neuro grossly intact Psych/Mental Status: Normal Affect Laboratory Results 06/17/18 05:56: Diff Path Review Reviewed 06/17/18 11:44: POC Glucose 125 H 06/17/18 17:05: POC Glucose 93 06/17/18 22:30: POC Glucose 94 06/18/18 03:42: POC Glucose 70 06/18/18 04:02: POC Glucose 86 06/18/18 06:49: POC Glucose 95 06/18/18 08:20: WBC 13.9 H, RBC 3.14 L, Hgb 9.2 L, Hct 29.7 L, MCV 94.6, MCH 29.3, MCHC 31.0 L, RDW 16.9 H, RDW Differential 58.2 H, Plt Count 212, MPV 9.6 06/18/18 08:20: Sodium 141, Potassium 4.2, Chloride 108 H, Carbon Dioxide 25.0, Anion Gap 8, BUN 32 H, Creatinine 1.78 H, Estim Creat Clear Calc 22.93, Est GFR (MDRD) Af Amer 36 L, Est GFR (MDRD) Non-Af 30 L, BUN/Creatinine Ratio 18.0, Glucose 73 L, Calcium 8.7, Magnesium 1.6 Current Medications Acetaminophen (Tylenol) 650 mg PO Q4H PRN PRN PRN Reason: FEVER Last Admin: 06/17/18 22:41 Dose: 650 mg Acetaminophen (Tylenol) 650 mg RECTAL Q4H PRN PRN PRN Reason: FEVER Allopurinol (Zyloprim) 300 mg PO DAILY [facility] Last Admin: 06/18/18 10:08 Dose: 300 mg Aspirin (Ecotrin) 81 mg PO DAILY@0800 [facility] Last Admin: 06/18/18 10:08 Dose: 81 mg Atorvastatin Calcium (Lipitor) 20 mg PO QHS [facility] Last Admin: 06/17/18 22:24 Dose: 20 mg Bisacodyl (Dulcolax) 5 mg PO DAILY PRN PRN PRN Reason: Constipation Dextrose (D50w Syringe) 0 gm IV X1 PRN; Protocol PRN Reason: Hypoglycemia Ergocalciferol (Vitamin D) 50,000 unit PO WESA [facility] Glucagon () 1 mg IM .X1 PRN PRN Reason: Hypoglycemia Heparin Sodium (Porcine) (Heparin Na) 5,000 unit SC Q8 [facility] Last Admin: 06/18/18 06:50 Dose: 5,000 units Hydroxychloroquine Sulfate (Plaquenil) 200 mg PO BID [facility] Last Admin: 06/18/18 10:08 Dose: 200 mg Sodium Chloride () 1,000 mls @ 75 mls/hr IV .[id number] [facility] Stop: 06/18/18 17:39 Last Admin: 06/18/18 06:50 Dose: 75 mls/hr Ciprofloxacin (Cipro) 400 mg in 200 mls @ 200 mls/hr IV Q12 [facility] Last Admin: 06/18/18 10:09 Dose: 200 mls/hr Sodium Chloride () 250 mls @ 15 mls/hr IV .[id number] PRN PRN Reason: SALINE FLUSH Insulin Glargine (Lantus (Bkc)) 10 units SC QHS [facility] Last Admin: 06/17/18 22:31 Dose: 10 u Insulin Human Lispro (Humalog Kwikpen (Bkc)) 0 unit SQ ACHS [place] PRN Reason: Protocol Last Admin: 06/18/18 06:50 Dose: Not Given Magnesium Hydroxide (Milk Of Magnesia) 30 ml PO DAILY PRN PRN PRN Reason: Constipation Metoprolol Tartrate (Lopressor (Beta Felicia)) 100 mg PO BID [facility] Last Admin: 06/18/18 10:08 Dose: 100 mg Nutritional Formula (Lactose Free) (Ensure Clear) 120 ml PO 4X/DAY [facility] Last Admin: 06/18/18 10:09 Dose: 120 ml Ondansetron HCl (Zofran) 4 mg IV Q6H PRN PRN PRN Reason: NAUSEA Prednisone () 5 mg PO DAILYCM [facility] Last Admin: 06/18/18 10:08 Dose: 5 mg Promethazine HCl (Phenergan) 12.5 mg IM Q6H PRN PRN PRN Reason: NAUSEA/VOMITING Last Admin: 06/17/18 09:16 Dose: 12.5 mg Sodium Chloride () 5 - 30 ml IV UD PRN PRN Reason: SALINE FLUSH Zolpidem Tartrate (Ambien (Generic)) 5 mg PO QHS PRN PRN PRN Reason: INSOMNIA Medical Necessity - Tobacco Use Smoking Status: Never smoker Tobacco Use: Non-smoker Assessment/Plan All Active Problems (Last Reviewed 06/17/18 @ 02:21 by Dc Santillan MD) Acute cystitis (Acute) H/O repair of rotator cuff (Resolved) H/O total hysterectomy (Resolved) Hx of appendectomy (Resolved) Cellulitis (Acute) Sepsis (Acute) Ulcer of left lower extremity with fat layer exposed (Acute) DILCIA (acute kidney injury) (Resolved) Afib (Resolved) Chronic ulcer of left leg with fat layer exposed (Resolved) DVT (deep venous thrombosis) (Resolved) Nonhealing ulcer of left lower extremity with fat layer exposed (Resolved) Pulmonary emboli (Resolved) Severe sepsis (Resolved) UTI (urinary tract infection) (Resolved) Venous stasis ulcer of leg without varicose veins (Resolved) Wound abscess (Resolved) Chronic articular rheumatism (Ruled-out) Chronic foot ulcer (Ruled-out) Pyoderma gangrenosum (Ruled-out) Patient is a 72-year-old lady with history of CAD status post stent placement diabetes, admitted with progressive generalized weakness. Patient was found to have acute cystitis on admission admitted to a regular nursing floor for further management 1 Acute cystitis with Streptococcus agalactiae (B) patient on ciprofloxacin. 2. Diabetes mellitus type 2 with complications including diabetic nephropathy. 3. Chronic kidney disease stage III secondary to diabetic nephropathy kidney function appears to be at baseline 4. Anemia secondary to anemia of chronic disorder; treat H&H with plans to transfuse if patient becomes symptomatic 5. Coronary artery disease with stent placed in November 2016. Patient is on antiplatelet therapy as well as statins did continue 6. Chronic diastolic congestive heart failure with EF of 55% on echo obtained in 2016 patient currently compensated 7. Gout patient is on allopurinol 8. Rheumatoid arthritis patient is on Plaquenil 9. Dyslipidemia-patient is on statin therapy, continued at home dose 10. DVT prophylaxis SC heparin Active Medications Acetaminophen (Tylenol) 650 mg PO Q4H PRN PRN PRN Reason: FEVER Last Admin: 06/17/18 22:41 Dose: 650 mg Acetaminophen (Tylenol) 650 mg RECTAL Q4H PRN PRN PRN Reason: FEVER Allopurinol (Zyloprim) 300 mg PO DAILY [facility] Last Admin: 06/18/18 10:08 Dose: 300 mg Aspirin (Ecotrin) 81 mg PO DAILY@0800 [facility] Last Admin: 06/18/18 10:08 Dose: 81 mg Atorvastatin Calcium (Lipitor) 20 mg PO QHS [facility] Last Admin: 06/17/18 22:24 Dose: 20 mg Bisacodyl (Dulcolax) 5 mg PO DAILY PRN PRN PRN Reason: Constipation Dextrose (D50w Syringe) 0 gm IV X1 PRN; Protocol PRN Reason: Hypoglycemia Ergocalciferol (Vitamin D) 50,000 unit PO WESA [facility] Glucagon () 1 mg IM .X1 PRN PRN Reason: Hypoglycemia Heparin Sodium (Porcine) (Heparin Na) 5,000 unit SC Q8 [facility] Last Admin: 06/18/18 06:50 Dose: 5,000 units Hydroxychloroquine Sulfate (Plaquenil) 200 mg PO BID [facility] Last Admin: 06/18/18 10:08 Dose: 200 mg Sodium Chloride () 1,000 mls @ 75 mls/hr IV .[id number] [facility] Stop: 06/18/18 17:39 Last Admin: 06/18/18 06:50 Dose: 75 mls/hr Ciprofloxacin (Cipro) 400 mg in 200 mls @ 200 mls/hr IV Q12 [facility] Last Admin: 06/18/18 10:09 Dose: 200 mls/hr Sodium Chloride () 250 mls @ 15 mls/hr IV .[id number] PRN PRN Reason: SALINE FLUSH Insulin Glargine (Lantus (Bkc)) 10 units SC QHS [facility] Last Admin: 06/17/18 22:31 Dose: 10 u Insulin Human Lispro (Humalog Kwikpen (Bk)) 0 unit SQ ACHS [facility] PRN Reason: Protocol Last Admin: 06/18/18 06:50 Dose: Not Given Magnesium Hydroxide (Milk Of Magnesia) 30 ml PO DAILY PRN PRN PRN Reason: Constipation Metoprolol Tartrate (Lopressor (Beta Felicia)) 100 mg PO BID [facility] Last Admin: 06/18/18 10:08 Dose: 100 mg Nutritional Formula (Lactose Free) (Ensure Clear) 120 ml PO 4X/DAY [facility] Last Admin: 06/18/18 10:09 Dose: 120 ml Ondansetron HCl (Zofran) 4 mg IV Q6H PRN PRN PRN Reason: NAUSEA [facility] Last Admin: 06/18/18 10:08 Dose: 5 mg Promethazine HCl (Phenergan) 12.5 mg IM Q6H PRN PRN PRN Reason: NAUSEA/VOMITING Last Admin: 06/17/18 09:16 Dose: 12.5 mg Sodium Chloride () 5 - 30 ml IV UD PRN PRN Reason: SALINE FLUSH Zolpidem Tartrate (Ambien (Generic)) 5 mg PO QHS PRN PRN PRN Reason: INSOMNIA Code Visit Inpatient E&M: 23303 [facility] Hosp L3
[2018-06-18 12:00] LABS: Bedside Glucose 163 mg/dL (70-110)
[2018-06-18] MEDS: Insulin Lispro 100 UNIT/ML INSULN.PEN SQ ×2 (13:05→21:30)
[2018-06-18 16:25] LABS: Bedside Glucose 139 mg/dL (70-110)
[2018-06-18] MEDS: Atorvastatin Calcium 20 MG Tablet PO (21:29)
[2018-06-18 21:55] LABS: Bedside Glucose 157 mg/dL (70-110)
[2018-06-19 02:00] VITALS: BP 168/68; PULSE 69; RESP 18; TEMP 36.9; O2SAT 98
[2018-06-19] MEDS: Heparin Injection (Vial) 5,000 UNIT/ML VIAL 5000 UNIT SC (06:37)
[2018-06-19 06:44] VITALS: O2SAT 97
[2018-06-19 06:51] LABS: Bedside Glucose 93 mg/dL (70-110)
[2018-06-19 07:32] LABS: Hematocrit 28.6 % (37-47); Hemoglobin 8.8 g/dl (12.0-15.0); Mean Corp Hgb Conc 30.8 g/gl (32-36); Mean Corpuscular Hgb 29.5 pg (27.0-32.0); Mean Platelet Vol. 10.2 fl (6.2-12.0); Platelet Count 236 K/mm3 (150-450); RBC Distribution Width CV 16.4 % (11.6-14.6); RBC Distribution Width SD 55.2 fl (35.1-43.9); Red Blood Count 2.98 M/mm3 (4.2-5.4); White Blood Count 8.7 K/mm3 (4.4-11.0)
[2018-06-19 07:40] LABS: Scan Indicated on CBC? Y/N NO
[2018-06-19 07:41] LABS: Anion Gap 6 (5-15); BUN 30 mg/dL (7-18); BUN/Creat Ratio 16.5 RATIO (10-20); Calcium,Total 8.6 mg/dL (8.5-10.1); Chloride 113 mmol/L (98-107); Creatinine, Serum 1.82 mg/dL (0.55-1.02); EST Glomerular Filtration Rate 29 mL/min (>60); Est Glom Filt Rate - Afr Amer 35 mL/min (>60); Estimated Creatinine Clearance 22.42 ml/min; Glucose 108 mg/dL (74-106); Sodium Level 142 mmol/L (136-145)
[2018-06-19 07:49] VITALS: PULSE 65
[2018-06-19] MEDS: Aspirin E.C. 81 MG Tablet PO (07:49)
[2018-06-19] MEDS: predniSONE 5 MG Tablet PO (07:49)
[2018-06-19] MEDS: Hydroxychloroquine 200 MG Tablet PO (07:49)
[2018-06-19] MEDS: Metoprolol Tartrate 100 MG Tablet PO (07:49)
[2018-06-19] MEDS: Allopurinol 300 MG Tablet PO (07:50)
[2018-06-19 08:00] VITALS: BP 145/64; PULSE 65; RESP 18; TEMP 36.8; O2SAT 98
--- NOTE | 2018-06-19 09:30 | DCINST_ITS ---
- Discharge Diagnoses Current Active Problems: Current Active and Chronic Problems (Last Reviewed 06/17/18 @ 02:21 by Dc Santillan MD) Acute cystitis (Acute) You will use the following diet at home:: Calorie/Carbohydrate Controlled ( specify 1200, 1400, etc), Cardiac Discharge Activity: Return to Normal Activity Call your doctor if you observe: Shortness of breath, Dizziness, Fainting spells , Chest pain Allergies/Adverse Reactions: Allergies cefepime HCl [From Maxipime] Allergy (Verified 06/16/18 21:48) Itching cephalexin monohydrate [From Keflex] Allergy (Verified 06/16/18 21:48) Hives clopidogrel [From Plavix] Allergy (Verified 06/16/18 21:48) Itching and hives all over hydromorphone HCl [From Dilaudid] Adverse Reaction (Verified 06/16/18 21:48) Itching piperacillin [From Zosyn] Adverse Reaction (Verified 06/17/18 01:59) Hives tazobactam [From Zosyn] Adverse Reaction (Verified 06/17/18 01:59) Hives Medications to take at Discharge Ergocalciferol [Vitamin D] 50,000 unit PO WESA 12/19/14 predniSONE tablet 5 mg PO DAILY 12/19/14 Simvastatin [Zocor] 40 mg PO QHS 12/03/16 Hydroxychloroquine [Plaquenil] 200 mg PO BID 12/25/17 Insulin Glargine,Hum.rec.anlog [Lantus] 10 unit SQ QHS 01/07/18 Aspirin E.C. [Ecotrin] 81 mg PO QHS 06/10/18 Metoprolol Tartrate [Lopressor (beta reid)] 100 mg PO BID 06/10/18 allopurinol 300 mg tablet 300 mg PO QDAY 06/14/18 Ciprofloxacin [Cipro] 500 mg PO BID #10 tab 06/19/18 The following prescriptions were given: Ciprofloxacin [Cipro] 500 mg PO BID #10 tab Primary Care Physician: Sonja Feliciano [Primary Care Provider] - Please follow up with your Primary Care Physician in: 1 Week Test Results: Test results from this visit will be discussed in further detail at your follow- up appointment, if applicable. Please Follow Up With: Urology When: As scheduled Proposed Discharge Date: 06/19/18
[2018-06-19] MEDS: Ciprofloxacin 400 MG/200 ML BAG 200 MG IV (09:46)
[2018-06-19] MEDS: 0.9% NaCl Peripheral Flush Adult/Peds IV (09:46)
--- NOTE | 2018-06-19 09:46 | DS.PCM_ITS ---
<Angi Alvarado - Last Filed: 06/19/18 09:46> Discharge Date and Diagnosis Date of Admission: 06/17/18 Date of Discharge: 06/19/18 - Primary Discharge Diagnosis Active and Suspected Problems (Last Reviewed 06/17/18 @ 02:21 by Dc Santillan MD) 1. Acute Streptococcus agalactiae B cystitis - Secondary Discharge Diagnosis Chronic Problems (Last Reviewed 06/17/18 @ 02:21 by Dc Santillan MD) Varicose veins of both lower extremities (Chronic) Chronic renal failure, stage 4 (severe) (Chronic) Chronic steroid use (Chronic) Morbid obesity with BMI of 45.0-49.9, adult (Chronic) Osteopenia (Chronic) Pulmonary hypertension (Chronic) Personal history of DVT (deep vein thrombosis) (Chronic) Presence of IVC filter (Chronic) Lymphedema (Chronic) PVD (peripheral vascular disease) (Chronic) CAD (coronary artery disease) (Chronic) EDGARDO to mid LAD 12/05/2016; Paroxysmal atrial fibrillation (Chronic) S/P angioplasty with stent (Chronic) EDGARDO to mid LAD 12/05/2016 DM2 (diabetes mellitus, type 2) (Chronic) Dyslipidemia (Chronic) Depression (Chronic) HTN (hypertension) (Chronic) Gout (Chronic) 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 She has a past medical history of type 2 diabetes mellitus, hypertension, hyperlipidemia, chronic kidney disease stage IV, history of DVT status post IVC filter, PVD, CAD status post PCI, paroxysmal atrial fibrillation , depression, gout, anemia of chronic disease, chronic diastolic CHF, rheumatoid arthritis. Patient was scheduled for bladder sling surgery and noted to have UTI with routine urinalysis prior to surgery. She was prescribed Macrobid. She took 1 dose and later that day developed chills, nausea and vomiting. Patient was admitted and placed on IV Cipro. She will be discharged on oral Cipro 500 mg twice daily for 5 days for a total of 7 days of therapy. Patient denies further fever, chills, nausea. Denies urinary symptoms. Her chronic medical conditions as noted above are stable at this time. General: Alert, Oriented x3, no acute distress HEENT: Atraumatic Oral: Moist Mucosa Neck: Supple, No JVD Lungs: Diminished, clear to auscultation Cardiovascular: Regular rate, Regular Rhythm Abdomen: Soft, Non Tender, Non-Distended Extremities: No clubbing, No cyanosis Skin: No rashes Neurological: Neuro grossly intact Psych/Mental Status: Normal Affect Patient seen exam prior to discharge. Physical assessment as noted above. Patient is stable for discharge home with follow-up with primary care physician in 1 week and urology as previously scheduled. This patient was seen by CRISTIAN Lin under the supervision of Dr. Hernandez. Discharge Diet: Low fat/ Low Cholesterol, Carb Control Diet Discharge Activity: Return to Normal Activity Call your doctor if you observe: Shortness of breath, Dizziness, Fainting spells , Chest pain Home Medications: Medications to take at Discharge Ergocalciferol [Vitamin D] 50,000 unit PO WESA 12/19/14 predniSONE tablet 5 mg PO DAILY 12/19/14 Simvastatin [Zocor] 40 mg PO QHS 12/03/16 Hydroxychloroquine [Plaquenil] 200 mg PO BID 12/25/17 Insulin Glargine,Hum.rec.anlog [Lantus] 10 unit SQ QHS 01/07/18 Aspirin E.C. [Ecotrin] 81 mg PO QHS 06/10/18 Metoprolol Tartrate [Lopressor (beta reid)] 100 mg PO BID 06/10/18 allopurinol 300 mg tablet 300 mg PO QDAY 06/14/18 Ciprofloxacin [Cipro] 500 mg PO BID #10 tab 06/19/18 Following Prescrptions Were Given to Patient: Ciprofloxacin [Cipro] 500 mg PO BID #10 tab Primary Care Physician: Sonja Feliciano [Primary Care Provider] - Please follow up with your Primary Care Physician in: 1 Week Please Follow Up With: Urology When: As scheduled Disposition: Home Minutes spent on discharge:: 35 Patient Condition:: Stable Medical Necessity - Tobacco Use Smoking Status: Never smoker Tobacco Use: Non-smoker Meaningful Use Info Meaningful Use Diagnoses (Choose all that apply): None applicable <Marion Hernandez E - Last Filed: 06/19/18 11:16> Discharge Date and Diagnosis - Secondary Discharge Diagnosis Chronic Problems (Last Reviewed 06/17/18 @ 02:21 by Dc Santillan MD) Varicose veins of both lower extremities (Chronic) Chronic renal failure, stage 4 (severe) (Chronic) Chronic steroid use (Chronic) Morbid obesity with BMI of 45.0-49.9, adult (Chronic) Osteopenia (Chronic) Pulmonary hypertension (Chronic) Personal history of DVT (deep vein thrombosis) (Chronic) Presence of IVC filter (Chronic) Lymphedema (Chronic) PVD (peripheral vascular disease) (Chronic) CAD (coronary artery disease) (Chronic) EDGARDO to mid LAD 12/05/2016; Paroxysmal atrial fibrillation (Chronic) S/P angioplasty with stent (Chronic) EDGARDO to mid LAD 12/05/2016 DM2 (diabetes mellitus, type 2) (Chronic) Dyslipidemia (Chronic) Depression (Chronic) HTN (hypertension) (Chronic) Gout (Chronic) 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 Patient was admitted for nausea, vomiting and chills and she was found to have acute cystitis. She was treated with IV antibiotics and IV fluids. Her white blood cell count was highly elevated on admission and with IV antibiotic therapy, it came down to normal. Patient remained afebrile for more than 48 hours and the other vital signs remained stable. Her urine culture revealed Streptococcus group B although it was below infection level. Blood culture was negative up to the time of discharge. With above-mentioned treatment, patient symptoms improved and she did very well. Patient discharged home in a stable medical condition, discharged on ciprofloxacin 500 mg p.o. twice daily for 5 days, recommended follow-up with PCP in 1 week. - Physical Exam General: Alert, Oriented x3, Cooperative, No apparent distress. HEENT: Atraumatic, PERRLA, EOMI. Neck: Supple, No JVD, Negative Carotid Bruits, Trachea Midline, Thyroid Normal. Lungs: Diminished breath sounds bilateral, otherwise clear, No rhonchi, No wheeze, No rales. Cardiovascular: Regular rate, Regular Rhythm, Normal S1, Normal S2, PMI Normal. Abdomen: Bowel Sounds Present, Soft, Non Tender, Non-Distended, No Hepato- splenomegaly. Extremities: No clubbing, No cyanosis, No edema Skin: No rashes, No breakdown Neurological: Neuro grossly intact Vital Signs are stable. This note was generated with Dragon dictation software. It may contain incorrect words, spelling, and punctuation that were not noted in checking the note before signing. Minutes spent on discharge:: 26 Patient Condition:: Stable Meaningful Use Info Meaningful Use Diagnoses (Choose all that apply): None applicable Code Visit Inpatient E&M: 55825 Disch Hosp
[2018-06-19 11:21] LABS: Bedside Glucose 221 mg/dL (70-110)
== END 2018-06-19 12:15 | disposition home or self-care (01) | DRG 690 ==
LOC: ED 22:33 → MS3 06-17 01:00
PROVIDERS: Emergency Medicine; Internal Medicine; Admitting Provider Hospitalist; Emergency Provider Emergency Medicine; Family Provider Nurse Practitioner; PCP Nurse Practitioner; Visit Provider Hospitalist
DX: N30.00 Acute cystitis without hematuria (principal); I13.0 Hypertensive heart and chronic kidney disease with heart failure and stage 1 through stage 4 chronic kidney disease, or unspecified chronic kidney disease; I50.32 Chronic diastolic (congestive) heart failure; N18.4 Chronic kidney disease, stage 4 (severe); B95.1 Streptococcus, group B, as the cause of diseases classified elsewhere; I27.20 Pulmonary hypertension, unspecified; I48.0 Paroxysmal atrial fibrillation; E11.22 Type 2 diabetes mellitus with diabetic chronic kidney disease; E11.21 Type 2 diabetes mellitus with diabetic nephropathy; I25.10 Atherosclerotic heart disease of native coronary artery without angina pectoris; M06.9 Rheumatoid arthritis, unspecified; D63.8 Anemia in other chronic diseases classified elsewhere; R32 Unspecified urinary incontinence; E78.5 Hyperlipidemia, unspecified; M10.9 Gout, unspecified; M85.80 Other specified disorders of bone density and structure, unspecified site; E66.01 Morbid (severe) obesity due to excess calories; Z68.36 Body mass index [BMI] 36.0-36.9, adult; Z99.2 Dependence on renal dialysis; Z79.82 Long term (current) use of aspirin; Z79.4 Long term (current) use of insulin; Z79.02 Long term (current) use of antithrombotics/antiplatelets; Z79.52 Long term (current) use of systemic steroids; Z79.899 Other long term (current) drug therapy; Z88.3 Allergy status to other anti-infective agents; Z86.718 Personal history of other venous thrombosis and embolism; Z86.711 Personal history of pulmonary embolism; Z95.5 Presence of coronary angioplasty implant and graft
CPT/HCPCS: 36415; 80048; 80076; 81001; 81002; 82962; 83605; 83735; 85025; 85027; 85730; 86850; 86900; 87040; 87077; 87086; 87088; 87186; 97110; 97116; 97162; 97165; 97530; 97802; 99283; J7030; P9612; A4216; J0744; J2405

== ENCOUNTER → 2018-06-30 15:45 | Outpatient (CLI) | payer MEDICARE, SELFPAY ==
[2016-12-05 15:47] VITALS: BMI 35.6
== END ==
PROVIDERS: Visit Provider Obstetrics & Gynecology
DX: R30.0 Dysuria (principal)
CPT/HCPCS: 87077; 87086; 87088; 87186

== ENCOUNTER → 2018-07-14 16:53 | Outpatient (CLI) | payer MEDICARE, SELFPAY ==
[2016-12-05 15:47] VITALS: BMI 35.6
== END ==
PROVIDERS: Visit Provider Obstetrics & Gynecology
DX: N39.0 Urinary tract infection, site not specified (principal)
CPT/HCPCS: 87077; 87086; 87088; 87186

== ENCOUNTER → 2018-08-17 16:53 | Outpatient (CLI) | payer MEDICARE, SELFPAY ==
[2016-12-05 15:47] VITALS: BMI 35.6
== END ==
PROVIDERS: Family Provider Nurse Practitioner; PCP Nurse Practitioner; Visit Provider Nurse Practitioner Adult Health
DX: R31.9 Hematuria, unspecified (principal)
CPT/HCPCS: 87086; 87088

== ENCOUNTER 2018-09-22 13:00 | Outpatient (RCR) | payer MEDICARE, SELFPAY ==
[2016-12-05 15:47] VITALS: BMI 35.6
--- NOTE | 2018-09-14 16:49 | HP.PTEVAL ---
Patient's Visit Information DEVORAH ALLAN is a 73 year old F referred to Physical Therapy by Mimi Reaves with a diagnosis of Decreased mobility. Date of Evaluation: 09/14/18 Physical Therapist: Zaid Jones PT, - Visit Plan Frequency: 1-2x /Week Duration: 1 Week Plan: Issue HEP consisting of B LE strengthening and core stab ex's - Subjective Subjective: Pt notes she has noticed debilitation for the past year.. Pt reports she is unable to ambulate for very long until she feels like her knees are going to freeze up. Pt reports she has had xrays on her L knee which revealed severe OA. Pt reports she was told she needs to have replaceents, but notes she has other medical issues going on which are keeping her from getting that accomplished. No LE T or N at this time. No sleep diff secondary to pain. Pt reports she only has pain with walking and stairs. Pt must go up 11 stairs everyday, and sh must negotiate them one step at a time. 0/10 at rest, 7/10 with prolonged ambulation. - Pain L knee Pain Intensity (Out of 10): 0 Pain Intensity Range: 7 - Objective Neuro: B LE sensation is WNL to light touch. Palpation: Pain along medial joint lines B knees. No obvious deformity. ROM: R knee 0-105 degrees, L knee 0-105 degrees. Girth at joint line: L knee 44 cm, R knee 47 cm. MMT: B LE is grossly 4-/5 and painful with testing. Gait: Pt was able to ambulate grossly 120' with WW until feeling fatigued and wanting to rest - Goals Goal 1:: I with HEP 1-2 visits Goal Time Frame: 2 Weeks - Rehabilitation Potential Physical Therapy Diagnosis: Pt has decreased mobility, LE weakness, and LE pain secondary to deg changes in B knees Rehabilitation Potential: Good - Anticipated Interventions Patient/Client Instruction: Educate patient on: Condition, Plan of Care For the Purpose of:: To improve self management Therapeutic Exercise to Include: Strength training, Endurance training, Balance training, Body mechanics, Dynamic Lumbar Stabilization For the Purpose of:: To decrease pain, To increase ROM, To improve muscle performance and motor function Cryotherapy (ice pack, ice massage): Yes For the Purpose of:: To decrease pain Thank you for the opportunity to evaluate your patient. For Medicare and Medicare HMO plans, please review the plan of care and approve it. It will need to be FAXED BACK to us at [phone] for Medicare purposes. Please let me know if there are questions or concerns regarding this plan of care. Physician Signature: Date:
--- NOTE | 2018-12-21 14:32 | HP.PT.NRP ---
HP - Discharge Summary (1) - Patient Information DEVORAH ALLAN was seen in my office for initial evaluation on 09/14/18. The following Plan of Care was established for this patient: Initial Frequency: 1-2x /Week Initial Duration: 1 Week - Anticipated Interventions Patient/Client Instruction: Educate patient on: Condition, Plan of Care For the Purpose of:: To improve self management Therapeutic Exercise to Include: Strength training, Endurance training, Balance training, Body mechanics, Dynamic Lumbar Stabilization For the Purpose of:: To decrease pain, To increase ROM, To improve muscle performance and motor function Cryotherapy (ice pack, ice massage): Yes For the Purpose of:: To decrease pain This patient was last seen in our office . Pertinent comments regarding their Physical therapy will appear below: Pt was treated for 1 follow up appointment for her debilitation through the date of 09/22/18. Pt was issued a HEP and I discussed I would keep her file open until hearing back from her in a couple weeks. Pt has not returned through todays date, and is therefore discontinued at this time. At this point I will be discontinuing this patient from physical therapy. I would be happy to see this patient again in the future if found appropriate by the physician. Thank you! Zaid Jones, PT, ATC
== END 2018-09-22 19:00 | disposition home or self-care (01) ==
LOC: PT 13:00
PROVIDERS: Family Provider Nurse Practitioner; PCP Nurse Practitioner; Referring Provider Obstetrics & Gynecology; Visit Provider Obstetrics & Gynecology
DX: Z74.09 Other reduced mobility (principal)
CPT/HCPCS: 97110; 97162

== ENCOUNTER 2018-10-16 08:14 | Observation (INO) | payer MEDICARE, SELFPAY ==
[2016-12-05 15:47] VITALS: BMI 35.6
[2018-10-16] VITALS (7 sets, daily range): BP systolic 113–206; BP diastolic 57–78; PULSE 77–88; RESP 16–18; TEMP 37.2–38.4; O2SAT 93–98; BMI 36.6; BMI 38.9; BMI 38.0; BMI 39.0
[2018-10-16] MEDS: 0.9% Normal Saline 1,000 ML 1000 ML IV (08:57)
[2018-10-16] MEDS: Ondansetron 4 MG/2 ML Vial IV (08:57)
[2018-10-16 09:01] LABS: Absolute Lymphocyte Count 2.07 X10^3/ul (0.83-4.51); Absolute Neutrophil Count 14.1 X10^3/uL (2.0-7.7); Basophil# 0.03 X10^3/uL; Basophil% 0.2 % (0-1); Eosinophil# 0.14 X10^3/uL; Eosinophils% 0.8 % (0-5); Hematocrit 33.3 % (37-47); Lymphocyte # 2.07 X10^3/ul (4.0); Lymphocyte % 12.1 % (19-41); Mean Corpuscular Hgb 28.8 pg (27.0-32.0); Mean Platelet Vol. 10.2 fl (6.2-12.0); Monocyte% 4.7 % (0-10); Neutrophil # 14.11 X10^3/uL (2.7-7.7); Neutrophil % 82.1 % (47-70); Platelet Count 189 K/mm3 (150-450); RBC Distribution Width CV 16.8 % (11.6-14.6); RBC Distribution Width SD 58.3 fl (35.1-43.9); Red Blood Count 3.47 M/mm3 (4.2-5.4); White Blood Count 17.2 K/mm3 (4.4-11.0)
[2018-10-16 09:02] LABS: POSITIVE COUNT NO; POSITIVE DIFFERENTIAL NO; POSITIVE MORPHOLOGY NO
[2018-10-16 09:18] LABS: ALB/GLOB Ratio 0.7 RATIO (0.9-2.4); AST(SGOT) 22 U/L (15-37); Alanine Aminotransfer ALT/SGPT 16 U/L (13-56); Albumin, Serum 2.8 g/dL (3.2-5.0); Alkaline Phosphatase 134 U/L (45-117); Anion Gap 11 (5-15); BUN 31 mg/dL (7-18); BUN/Creat Ratio 17.6 RATIO (10-20); Chloride 105 mmol/L (98-107); Creatinine, Serum 1.76 mg/dL (0.55-1.02); EST Glomerular Filtration Rate 30 mL/min (>60); Est Glom Filt Rate - Afr Amer 37 mL/min (>60); Estimated Creatinine Clearance 22.85 ml/min; Globulin 3.9 g/dL (2.2-4.2); Glucose 198 mg/dL (74-106); Potassium 3.9 mmol/L (3.5-5.1); Protein, Total 6.7 g/dL (6.4-8.2); Sodium Level 142 mmol/L (136-145)
--- NOTE | 2018-10-16 09:27 | ED.VISSUMM ---
- ER Visit Summary Date of Service: 10/16/18 Chief Complaint: Nausea and vomiting History of Present Illness: The patient is a 73 F with a few hour history of nausea vomiting and diarrhea. Diarrhea is loose and watery, no recent travel no sick contacts. She just got started on nitrofurantoin yesterday for urinary tract infection. She denies any abdominal pain. Denies any chest pain or shortness of breath. She does feel lightheaded. Physical Examination: She appears her stated age, she does not appear toxic she appears in slight distress. Slightly dry mucous membranes, no obvious facial deformity No C-spine tenderness supple neck. Regular rate and rhythm without any obvious murmurs Clear lungs bilaterally speaking in full sentences without any obvious respiratory distress Abdomen soft and nontender no guarding or rebound Moves all extremities without any difficulty or pain. Skin does not show any obvious rashes or lesions, no trauma. Alert oriented ?3 with no gross focal deficit Emergency Department Course and Treatment: Workup shows chronic renal insufficiency without any change, she does have some leukocytosis, this may be a viral etiology. She was given IV fluids and Zofran. Did have some improvement but felt pretty weak. I will admit her for observation for rehydration. Disposition: Admit to the hospital under observation in stable condition Impression: Gastroenteritis This note was generated with [employer] dictation software. It may contain incorrect words, spelling, and punctuation that were not noted in review of the chart prior to signing ED Disposition - Plan for ED Patient: Chief Complaint: Nausea/Vomiting/Diarrhea Referrals: Sonja Feliciano, [employer] [Primary Care Provider] -
--- NOTE | 2018-10-16 09:30 | ED.DCSUM_ITS ---
- ER Visit Summary Date of Service: 10/16/18 Chief Complaint: Nausea and vomiting History of Present Illness: The patient is a 73 F with a few hour history of nausea vomiting and diarrhea. Diarrhea is loose and watery, no recent travel no sick contacts. She just got started on nitrofurantoin yesterday for urinary tract infection. She denies any abdominal pain. Denies any chest pain or shortness of breath. She does feel lightheaded. Physical Examination: She appears her stated age, she does not appear toxic she appears in slight distress. Slightly dry mucous membranes, no obvious facial deformity No C-spine tenderness supple neck. Regular rate and rhythm without any obvious murmurs Clear lungs bilaterally speaking in full sentences without any obvious respiratory distress Abdomen soft and nontender no guarding or rebound Moves all extremities without any difficulty or pain. Skin does not show any obvious rashes or lesions, no trauma. Alert oriented ?3 with no gross focal deficit Emergency Department Course and Treatment: Workup shows chronic renal insufficiency without any change, she does have some leukocytosis, this may be a viral etiology. She was given IV fluids and Zofran. Did have some improvement but felt pretty weak. I will admit her for observation for rehydration. Disposition: Admit to the hospital under observation in stable condition Impression: Gastroenteritis This note was generated with inexio dictation software. It may contain incorrect words, spelling, and punctuation that were not noted in review of the chart prior to signing ED Disposition - Plan for ED Patient: Chief Complaint: Nausea/Vomiting/Diarrhea Referrals: Sonja Feliciano, [facility] [Primary Care Provider] -
--- NOTE | 2018-10-16 10:59 | PCM.HP.STD ---
Problem List (1) Debility Status: Acute (2) Gastroenteritis Status: Acute History of Present Illness Date of Admission: 10/16/18 Chief Complaint: nausea, vomiting, diarrhea. The patient is a 73 year old F presents with 1 day history of nausea patient has poor performance status and we are patient does get ill patient may times was up in the hospital. Patient was evaluated in the emergency room and was noted to have leukocytosis but the rest of her workup was unremarkable. Patient was able to drink water and keep it down but patient was endorsing that she felt too weak to go home. The hospital service was asked to see the patient bring the patient in. Patient does have history of urinary tract infections but never has any specific symptoms with that, such as dysuria. Patient just feels weak and did feel chilled. Urinalysis has not been done at the time of this dictation. [] Past Medical History Past Medical History (Chronic Problems): Chronic Problems (Last Reviewed 08/06/18 @ 15:20 by Little Waterman) Atherosclerotic heart disease of [place] coronary artery without angina pectoris (Chronic) Varicose veins of both lower extremities (Chronic) Chronic renal failure, stage 4 (severe) (Chronic) Chronic steroid use (Chronic) Morbid obesity with BMI of 45.0-49.9, adult (Chronic) Osteopenia (Chronic) Pulmonary hypertension (Chronic) Personal history of DVT (deep vein thrombosis) (Chronic) Presence of IVC filter (Chronic) Lymphedema (Chronic) PVD (peripheral vascular disease) (Chronic) Paroxysmal atrial fibrillation (Chronic) S/P angioplasty with stent (Chronic ~12/05/16) EDGARDO to mid LAD 12/05/2016 DM2 (diabetes mellitus, type 2) (Chronic) Dyslipidemia (Chronic) Depression (Chronic) HTN (hypertension) (Chronic) Gout (Chronic) 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) Medical History: Medical History (Last Reviewed 10/16/18 @ 11:00 by Theodore Vera DO) Premature atrial contractions (Acute) I49.1 Premature ventricular contraction (Acute) I49.3 Atherosclerotic heart disease of [place] coronary artery without angina pectoris (Chronic) I25.10 Cellulitis (Acute) L03.90 Sepsis (Acute) A41.9 Varicose veins of both lower extremities (Chronic) I83.93 Chronic renal failure, stage 4 (severe) (Chronic) N18.4 Chronic steroid use (Chronic) Morbid obesity with BMI of 45.0-49.9, adult (Chronic) E66.01, Z68.42 Osteopenia (Chronic) M85.80 Pulmonary hypertension (Chronic) I27.20 Personal history of DVT (deep vein thrombosis) (Chronic) Z86.718 Presence of IVC filter (Chronic) Z95.828 Rheumatoid arthritis (Suspected) M06.[address] 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) E11.59 Pulmonary hypertension I27.20 Allergies cefepime HCl [From Maxipime] Allergy (Verified 10/16/18 08:15) Itching cephalexin monohydrate [From Keflex] Allergy (Verified 10/16/18 08:15) Hives clopidogrel [From Plavix] Allergy (Verified 10/16/18 08:15) Itching and hives all over hydromorphone HCl [From Dilaudid] Adverse Reaction (Verified 10/16/18 08:15) Itching piperacillin [From Zosyn] Adverse Reaction (Verified 10/16/18 08:15) Hives tazobactam [From Zosyn] Adverse Reaction (Verified 10/16/18 08:15) Hives Home Medications: Ambulatory Orders Medication Instructions Recorded Allopurinol 300 mg PO DAILY 10/16/18 Aspirin [Aspirin, Baby] 81 mg PO DAILY@0800 10/16/18 Ergocalciferol (Vitamin D2) 50,000 unit PO WESA 10/16/18 [Drisdol] Hydroxychloroquine [Plaquenil] 200 mg PO BIDCM 10/16/18 Insulin Glargine,Hum.rec.anlog 10 unit SQ QHS 10/16/18 [Lantus] Metoprolol Tartrate [Lopressor] 100 mg PO BID 10/16/18 Prednisone 5 mg PO DAILY 10/16/18 Simvastatin [Zocor] 40 mg PO QHS 10/16/18 Surgical History: Surgical History (Last Reviewed 10/16/18 @ 11:00 by Theodore Vera DO) S/P angioplasty with stent (Chronic) Onset Date: ~12/05/16 Z95.9 EDGARDO to mid LAD 12/05/2016 History of repair of rotator cuff Z98.890 History of total hysterectomy Z90.710 Hx of appendectomy Z90.49 Surgical History: angioplasty, hysterectomy, rotator cuff repair, - Smoking Status: Never smoker - *Family History Paternal Family History: Family History (Last Reviewed 10/16/18 @ 11:00 by Theodore Vera DO) Father Hypertension Brother CAD (coronary artery disease) History Items: Diabetes Maternal Family History: Family History (Last Reviewed 10/16/18 @ 11:00 by Theodore Vera DO) Father Hypertension Brother CAD (coronary artery disease) History Items: Diabetes, Hypertension Review of Systems Constitutional: Reports: Chills, Malaise, Weakness. Denies: Anorexia, Fever Eyes: Denies: Blurred vision, Double vision HEENT: Denies: Head Aches, Sinus Congestion, Sinus Drainage Cardiovascular: Denies: Chest Pain, Palpitations Respiratory: Reports: Cough, Shortness of Breath Gastrointestinal: Reports: Abdominal Pain, Diarrhea, Nausea, Vomiting Genitourinary: Reports: Incontinence. Denies: Dysuria, Hematuria Musculoskeletal: Denies: Joint Pain, Joint Tenderness Skin: Reports: Rash, Wounds - Patient notes that she does pick at her lower extremities Neurological: Denies: Numbness, Tingling, Focal weakness Psychiatric: Denies: Anxiety, Depression Hematologic/ Lymphatic: Reports: Hx of blood clot. Denies: Easy Bruising, Easy Bleeding Comment: A 10 point review of systems were negative except as mentioned in the history of present illness and the other review of systems. VTE Information - Inpt Only VTE Present on Admission: No VTE Pharm Prophylaxis ordered?: Yes Patient Problems: Active and Suspected Problems (Last Reviewed 08/06/18 @ 15:20 by Little Waterman) Debility (Acute) Gastroenteritis (Acute) - Physical Exam General: Alert, Cooperative, - - Appears much older than stated age HEENT: Atraumatic, PERRLA, EOMI, Normocephalic Oral: Moist Mucosa, No Gingival or Mucosal Lesions/ Ulcerations Neck: No Nodes, Thyroid Normal Size and Texture Lungs: Clear to auscultation, Normal air movement, No rhonchi, No wheeze Cardiovascular: Regular rate, Regular Rhythm, Normal S1, Normal S2, No murmurs Abdomen: Bowel Sounds Present, Soft, Non Tender, Non-Distended Extremities: No Calf Tenderness, Edema Skin: - - Some mild venous stasis dermatitis. Patient does have some chronic changes to her lower extremity. Does have some scabs over her lower extremities but no purulence. Though there was some blood noted on the bed sheet. Musculoskeletal: No Tenderness to Palpation of Joints or Extremities, No Muscle Wasting Neurological: Sensory exam intact to light touch and pain, - - no clonus Psych/Mental Status: Normal Affect, Appropriate Vital Signs Temp Pulse Resp BP Pulse Ox 37.2 C 81 16 146/64 H 98 10/16/18 10:17 10/16/18 10:17 10/16/18 10:17 10/16/18 10:18 10/16/18 10:17 Oxygen Delivery Method Room Air Weight: 96.6 kg Body Mass Index (BMI) 38.9 Finger Stick Blood Glucose 139 Laboratory Tests Past 24 Hrs 10/16/18 10/16/18 08:50 08:50 WBC 17.2 H RBC 3.47 L Hgb 10.0 L Hct 33.3 L MCV 96.0 MCH 28.8 MCHC 30.0 L RDW 16.8 H RDW Differential 58.3 H Plt Count 189 MPV 10.2 Immature Gran % (Auto) 0.100 Neut % (Auto) 82.1 H Lymph % (Auto) 12.1 L Garza % (Auto) 4.7 Eos % (Auto) 0.8 Baso % (Auto) 0.2 Absolute Neuts (auto) 14.1 H Absolute Lymphs (auto) 2.07 Total Counted Not Reportable Sodium 142 Potassium 3.9 Chloride 105 Carbon Dioxide 26.0 Anion Gap 11 BUN 31 H Creatinine 1.76 H Estim Creat Clear Calc 22.85 Est GFR (MDRD) Af Amer 37 L Est GFR (MDRD) Non-Af 30 L BUN/Creatinine Ratio 17.6 Glucose 198 H Calcium 9.0 Total Bilirubin 0.70 AST 22 ALT 16 Alkaline Phosphatase 134 H Total Protein 6.7 Albumin 2.8 L Globulin 3.9 Albumin/Globulin Ratio 0.7 L Assessment/Plan All Active Problems (Last Reviewed 08/06/18 @ 15:20 by Little Waterman) Debility (Acute) Gastroenteritis (Acute) Premature atrial contractions (Acute) Premature ventricular contraction (Acute) Acute cystitis (Acute) Cellulitis (Acute) Sepsis (Acute) Ulcer of left lower extremity with fat layer exposed (Acute) DILCIA (acute kidney injury) (Resolved) Afib (Resolved) Chronic ulcer of left leg with fat layer exposed (Resolved) DVT (deep venous thrombosis) (Resolved) Nonhealing ulcer of left lower extremity with fat layer exposed (Resolved) Pulmonary emboli (Resolved) Severe sepsis (Resolved) UTI (urinary tract infection) (Resolved) Venous stasis ulcer of leg without varicose veins (Resolved) Wound abscess (Resolved) Chronic articular rheumatism (Ruled-out) Chronic foot ulcer (Ruled-out) Pyoderma gangrenosum (Ruled-out) 1. Gastroenteritis Presumed diagnosis though patient had similar symptoms with other sources of infection. I do not appreciate any other source of infection at this time but the urinalysis has been ordered. Patient seems to be clinically improved at this point time. Patient will be on IV fluids as well as antiemetics. Follow-up with a urinalysis if positive then would treat accordingly with antibiotics 2. Debility Patient overall has a poor performance status and the patient may not completely safe to return home as patient has to engage 11 steps to get into the house. Discussed the patient be brought under observation status. The daughter was a concern about for financial reasons but told them that if there is clear indication to admit the patient then will certainly do that but at this point time patient will remain observation Physical neck patient will therapy evaluate and treat 3. Diabetes mellitus type 2 Continue with Lantus Sliding scale insulin 4. Chronic kidney disease stage III Stable 5. DVT prophylaxis with low molecular weight heparin Code Visit OBSV E&M: 45689 Initial observation care L3
--- NOTE | 2018-10-16 11:03 | HP.PCM_ITS ---
Problem List (1) Debility Status: Acute (2) Gastroenteritis Status: Acute History of Present Illness Date of Admission: 10/16/18 Chief Complaint: nausea, vomiting, diarrhea. The patient is a 73 year old F presents with 1 day history of nausea patient has poor performance status and we are patient does get ill patient may times was up in the hospital. Patient was evaluated in the emergency room and was noted to have leukocytosis but the rest of her workup was unremarkable. Patient was able to drink water and keep it down but patient was endorsing that she felt too weak to go home. The hospital service was asked to see the patient bring the patient in. Patient does have history of urinary tract infections but never has any specific symptoms with that, such as dysuria. Patient just feels weak and did feel chilled. Urinalysis has not been done at the time of this dictation. 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) Chronic renal failure, stage 4 (severe) (Chronic) Chronic steroid use (Chronic) Morbid obesity with BMI of 45.0-49.9, adult (Chronic) Osteopenia (Chronic) Pulmonary hypertension (Chronic) Personal history of DVT (deep vein thrombosis) (Chronic) Presence of IVC filter (Chronic) Lymphedema (Chronic) PVD (peripheral vascular disease) (Chronic) Paroxysmal atrial fibrillation (Chronic) S/P angioplasty with stent (Chronic ~12/05/16) EDGARDO to mid LAD 12/05/2016 DM2 (diabetes mellitus, type 2) (Chronic) Dyslipidemia (Chronic) Depression (Chronic) HTN (hypertension) (Chronic) Gout (Chronic) 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) Medical History: Medical History (Last Reviewed 10/16/18 @ 11:00 by Theodore Vera DO) Premature atrial contractions (Acute) I49.1 Premature ventricular contraction (Acute) I49.3 Atherosclerotic heart disease of [place] coronary artery without angina pectoris (Chronic) I25.10 Cellulitis (Acute) L03.90 Sepsis (Acute) A41.9 Varicose veins of both lower extremities (Chronic) I83.93 Chronic renal failure, stage 4 (severe) (Chronic) N18.4 Chronic steroid use (Chronic) Morbid obesity with BMI of 45.0-49.9, adult (Chronic) E66.01, Z68.42 Osteopenia (Chronic) M85.80 Pulmonary hypertension (Chronic) I27.20 Personal history of DVT (deep vein thrombosis) (Chronic) Z86.718 Presence of IVC filter (Chronic) Z95.828 Rheumatoid arthritis (Suspected) M06.[address] 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) E11.59 Pulmonary hypertension I27.20 Allergies cefepime HCl [From Maxipime] Allergy (Verified 10/16/18 08:15) Itching cephalexin monohydrate [From Keflex] Allergy (Verified 10/16/18 08:15) Hives clopidogrel [From Plavix] Allergy (Verified 10/16/18 08:15) Itching and hives all over hydromorphone HCl [From Dilaudid] Adverse Reaction (Verified 10/16/18 08:15) Itching piperacillin [From Zosyn] Adverse Reaction (Verified 10/16/18 08:15) Hives tazobactam [From Zosyn] Adverse Reaction (Verified 10/16/18 08:15) Hives Home Medications: Ambulatory Orders Medication Instructions Recorded Allopurinol 300 mg PO DAILY 10/16/18 Aspirin [Aspirin, Baby] 81 mg PO DAILY@0800 10/16/18 Ergocalciferol (Vitamin D2) 50,000 unit PO WESA 10/16/18 [Drisdol] Hydroxychloroquine [Plaquenil] 200 mg PO BIDCM 10/16/18 Insulin Glargine,Hum.rec.anlog 10 unit SQ QHS 10/16/18 [Lantus] Metoprolol Tartrate [Lopressor] 100 mg PO BID 10/16/18 Prednisone 5 mg PO DAILY 10/16/18 Simvastatin [Zocor] 40 mg PO QHS 10/16/18 Surgical History: Surgical History (Last Reviewed 10/16/18 @ 11:00 by Theodore Vera DO) S/P angioplasty with stent (Chronic) Onset Date: ~12/05/16 Z95.9 EDGARDO to mid LAD 12/05/2016 History of repair of rotator cuff Z98.890 History of total hysterectomy Z90.710 Hx of appendectomy Z90.49 Surgical History: angioplasty, hysterectomy, rotator cuff repair, - Smoking Status: Never smoker - *Family History Paternal Family History: Family History (Last Reviewed 10/16/18 @ 11:00 by Theodore Vera DO) Father Hypertension Brother CAD (coronary artery disease) History Items: Diabetes Maternal Family History: Family History (Last Reviewed 10/16/18 @ 11:00 by Theodore Vera DO) Father Hypertension Brother CAD (coronary artery disease) History Items: Diabetes, Hypertension Review of Systems Constitutional: Reports: Chills, Malaise, Weakness. Denies: Anorexia, Fever Eyes: Denies: Blurred vision, Double vision HEENT: Denies: Head Aches, Sinus Congestion, Sinus Drainage Cardiovascular: Denies: Chest Pain, Palpitations Respiratory: Reports: Cough, Shortness of Breath Gastrointestinal: Reports: Abdominal Pain, Diarrhea, Nausea, Vomiting Genitourinary: Reports: Incontinence. Denies: Dysuria, Hematuria Musculoskeletal: Denies: Joint Pain, Joint Tenderness Skin: Reports: Rash, Wounds - Patient notes that she does pick at her lower extremities Neurological: Denies: Numbness, Tingling, Focal weakness Psychiatric: Denies: Anxiety, Depression Hematologic/ Lymphatic: Reports: Hx of blood clot. Denies: Easy Bruising, Easy Bleeding Comment: A 10 point review of systems were negative except as mentioned in the history of present illness and the other review of systems. VTE Information - Inpt Only VTE Present on Admission: No VTE Pharm Prophylaxis ordered?: Yes Patient Problems: Active and Suspected Problems (Last Reviewed 08/06/18 @ 15:20 by Little Waterman) Debility (Acute) Gastroenteritis (Acute) - Physical Exam General: Alert, Cooperative, - - Appears much older than stated age HEENT: Atraumatic, PERRLA, EOMI, Normocephalic Oral: Moist Mucosa, No Gingival or Mucosal Lesions/ Ulcerations Neck: No Nodes, Thyroid Normal Size and Texture Lungs: Clear to auscultation, Normal air movement, No rhonchi, No wheeze Cardiovascular: Regular rate, Regular Rhythm, Normal S1, Normal S2, No murmurs Abdomen: Bowel Sounds Present, Soft, Non Tender, Non-Distended Extremities: No Calf Tenderness, Edema Skin: - - Some mild venous stasis dermatitis. Patient does have some chronic changes to her lower extremity. Does have some scabs over her lower extremities but no purulence. Though there was some blood noted on the bed sheet. Musculoskeletal: No Tenderness to Palpation of Joints or Extremities, No Muscle Wasting Neurological: Sensory exam intact to light touch and pain, - - no clonus Psych/Mental Status: Normal Affect, Appropriate Vital Signs Temp Pulse Resp BP Pulse Ox 37.2 C 81 16 146/64 H 98 10/16/18 10:17 10/16/18 10:17 10/16/18 10:17 10/16/18 10:18 10/16/18 10:17 Oxygen Delivery Method Room Air Weight: 96.6 kg Body Mass Index (BMI) 38.9 Finger Stick Blood Glucose 139 Laboratory Tests Past 24 Hrs 10/16/18 10/16/18 08:50 08:50 WBC 17.2 H RBC 3.47 L Hgb 10.0 L Hct 33.3 L MCV 96.0 MCH 28.8 MCHC 30.0 L RDW 16.8 H RDW Differential 58.3 H Plt Count 189 MPV 10.2 Immature Gran % (Auto) 0.100 Neut % (Auto) 82.1 H Lymph % (Auto) 12.1 L [place] % (Auto) 4.7 Eos % (Auto) 0.8 Baso % (Auto) 0.2 Absolute Neuts (auto) 14.1 H Absolute Lymphs (auto) 2.07 Total Counted Not Reportable Sodium 142 Potassium 3.9 Chloride 105 Carbon Dioxide 26.0 Anion Gap 11 BUN 31 H Creatinine 1.76 H Estim Creat Clear Calc 22.85 Est GFR (MDRD) Af Amer 37 L Est GFR (MDRD) Non-Af 30 L BUN/Creatinine Ratio 17.6 Glucose 198 H Calcium 9.0 Total Bilirubin 0.70 AST 22 ALT 16 Alkaline Phosphatase 134 H Total Protein 6.7 Albumin 2.8 L Globulin 3.9 Albumin/Globulin Ratio 0.7 L Assessment/Plan All Active Problems (Last Reviewed 08/06/18 @ 15:20 by Little Waterman) Debility (Acute) Gastroenteritis (Acute) Premature atrial contractions (Acute) Premature ventricular contraction (Acute) Acute cystitis (Acute) Cellulitis (Acute) Sepsis (Acute) Ulcer of left lower extremity with fat layer exposed (Acute) DILCIA (acute kidney injury) (Resolved) Afib (Resolved) Chronic ulcer of left leg with fat layer exposed (Resolved) DVT (deep venous thrombosis) (Resolved) Nonhealing ulcer of left lower extremity with fat layer exposed (Resolved) Pulmonary emboli (Resolved) Severe sepsis (Resolved) UTI (urinary tract infection) (Resolved) Venous stasis ulcer of leg without varicose veins (Resolved) Wound abscess (Resolved) Chronic articular rheumatism (Ruled-out) Chronic foot ulcer (Ruled-out) Pyoderma gangrenosum (Ruled-out) 1. Gastroenteritis * Presumed diagnosis though patient had similar symptoms with other sources of infection. I do not appreciate any other source of infection at this time but the urinalysis has been ordered. * Patient seems to be clinically improved at this point time. Patient will be on IV fluids as well as antiemetics. * Follow-up with a urinalysis if positive then would treat accordingly with antibiotics 2. Debility * Patient overall has a poor performance status and the patient may not completely safe to return home as patient has to engage 11 steps to get into the house. * Discussed the patient be brought under observation status. The daughter was a concern about for financial reasons but told them that if there is clear indication to admit the patient then will certainly do that but at this point time patient will remain observation * Physical neck patient will therapy evaluate and treat 3. Diabetes mellitus type 2 * Continue with Lantus * Sliding scale insulin 4. Chronic kidney disease stage III * Stable 5. DVT prophylaxis with low molecular weight heparin Code Visit OBSV E&M: 18414 Initial observation care L3
[2018-10-16] MEDS: 0.9% Normal Saline 1,000 ML 150 ML IV (12:18)
[2018-10-16 13:06] LABS: Bedside Glucose 116 mg/dL (70-110)
[2018-10-16 13:50] LABS: Bacteria 0 SEEN /hpf (None Seen); Mucous, Urine 0 SEEN /hpf (<or=2+); Squamous Epithelial Cells - UA 0 SEEN /hpf (5-10)
[2018-10-16 13:52] LABS: Color, Urine Yellow (Yellow); Glucose, Dipstick Normal (Normal); Ketone-Dipstick Negative (Negative); Leukocyte Esterase-Dipstick 500 /ul (Negative); Nitrite-Dipstick Negative (Negative); Occult Blood-Urine 250 /ul (Negative); Protein-Dipstick 100 mg/dl (Negative); Urine Bilirubin Dipstick Negative (Negative); Urine Clarity Cloudy (Clear); Urine Urobilinogen Normal (Normal); Urine pH 6.5 (5.0 - 8.0)
[2018-10-16 14:12] LABS: White Blood Cells >100 SEEN /hpf (0-5)
[2018-10-16 14:13] LABS: Red Blood Cells-Urine 5-10 SEEN /hpf (0-5)
[2018-10-16] MEDS: Hydroxychloroquine 200 MG Tablet PO (16:35)
[2018-10-16] MEDS: Ciprofloxacin 250 MG Tablet PO ×2 (16:36→21:54)
[2018-10-16 16:51] LABS: Bedside Glucose 132 mg/dL (70-110)
[2018-10-16] MEDS: Metoprolol Tartrate 100 MG Tablet PO (21:54)
[2018-10-16] MEDS: Acetaminophen 325 MG Tablet 650 MG PO (21:54)
[2018-10-16] MEDS: Atorvastatin Calcium 20 MG Tablet PO (21:54)
[2018-10-16 22:01] LABS: Bedside Glucose 104 mg/dL (70-110)
[2018-10-17 02:17] VITALS: BP 132/56; PULSE 61; RESP 16; TEMP 36.4; O2SAT 98
[2018-10-17] MEDS: Nystatin Powder 15gm Bottle 1 APPLIC TOPICAL (02:18)
[2018-10-17] MEDS: Enoxaparin 30 MG/0.3 ML Syringe SC (05:46)
[2018-10-17 06:15] LABS: Absolute Lymphocyte Count 2.47 X10^3/ul (0.83-4.51); Absolute Neutrophil Count 6.3 X10^3/uL (2.0-7.7); Basophil# 0.03 X10^3/uL; Basophil% 0.3 % (0-1); Eosinophil# 0.42 X10^3/uL; Eosinophils% 4.3 % (0-5); Hematocrit 28.5 % (37-47); Hemoglobin 8.8 g/dl (12.0-15.0); Lymphocyte # 2.47 X10^3/ul (4.0); Lymphocyte % 25.1 % (19-41); Mean Corp Hgb Conc 30.9 g/gl (32-36); Mean Corpuscular Hgb 29.8 pg (27.0-32.0); Mean Corpuscular Volume 96.6 fL (81-99); Mean Platelet Vol. 10.8 fl (6.2-12.0); Monocyte# 0.61 X10^3/uL; Monocyte% 6.2 % (0-10); Neutrophil # 6.29 X10^3/uL (2.7-7.7); Neutrophil % 63.9 % (47-70); Platelet Count 180 K/mm3 (150-450); RBC Distribution Width CV 16.5 % (11.6-14.6); RBC Distribution Width SD 55.7 fl (35.1-43.9); Red Blood Count 2.95 M/mm3 (4.2-5.4); White Blood Count 9.8 K/mm3 (4.4-11.0)
[2018-10-17 06:16] LABS: POSITIVE COUNT NO; POSITIVE DIFFERENTIAL NO; POSITIVE MORPHOLOGY NO
[2018-10-17 06:29] LABS: Anion Gap 9 (5-15); BUN 27 mg/dL (7-18); BUN/Creat Ratio 15.2 RATIO (10-20); Calcium,Total 8.4 mg/dL (8.5-10.1); Chloride 111 mmol/L (98-107); Creatinine, Serum 1.78 mg/dL (0.55-1.02); EST Glomerular Filtration Rate 30 mL/min (>60); Est Glom Filt Rate - Afr Amer 36 mL/min (>60); Glucose 98 mg/dL (74-106); Potassium 3.9 mmol/L (3.5-5.1); Sodium Level 146 mmol/L (136-145)
[2018-10-17 06:40] LABS: Bedside Glucose 134 mg/dL (70-110)
--- NOTE | 2018-10-17 09:36 | DCINST_ITS ---
- Discharge Diagnoses Current Active Problems: Current Active and Chronic Problems (Last Reviewed 10/16/18 @ 11:00 by Theodore Vera DO) Debility (Acute) Gastroenteritis (Acute) You will use the following diet at home:: Calorie/Carbohydrate Controlled (specify 1200, 1400, etc) - 1800 calories/day Your food should be the consistency of: Regular Your liquids should be the consistency of: Regular/Thin Discharge Activity: Return to Normal Activity Call your doctor if you observe: Fever of 101 or Higher, Inability to urinate, - - intractable nausea vomiting. Allergies/Adverse Reactions: Allergies cefepime HCl [From Maxipime] Allergy (Verified 10/16/18 08:15) Itching cephalexin monohydrate [From Keflex] Allergy (Verified 10/16/18 08:15) Hives clopidogrel [From Plavix] Allergy (Verified 10/16/18 08:15) Itching and hives all over hydromorphone HCl [From Dilaudid] Adverse Reaction (Verified 10/16/18 08:15) Itching piperacillin [From Zosyn] Adverse Reaction (Verified 10/16/18 08:15) Hives tazobactam [From Zosyn] Adverse Reaction (Verified 10/16/18 08:15) Hives Medications to take at Discharge Allopurinol 300 mg PO DAILY 10/16/18 Aspirin [Aspirin, Baby] 81 mg PO DAILY@0800 10/16/18 Ergocalciferol (Vitamin D2) [Drisdol] 50,000 unit PO WESA 10/16/18 Hydroxychloroquine [Plaquenil] 200 mg PO BIDCM 10/16/18 Insulin Glargine,Hum.rec.anlog [Lantus] 10 unit SQ QHS 10/16/18 Metoprolol Tartrate [Lopressor] 100 mg PO BID 10/16/18 Prednisone 5 mg PO DAILY 10/16/18 Simvastatin [Zocor] 40 mg PO QHS 10/16/18 Ciprofloxacin [Cipro] 250 mg PO BID #12 tablet 10/17/18 The following prescriptions were given: Ciprofloxacin [Cipro] 250 mg PO BID #12 tablet Primary Care Physician: Sonja Feliciano NP-C [Primary Care Provider] - Within 2 Weeks Test Results: Test results from this visit will be discussed in further detail at your follow- up appointment, if applicable. Proposed Discharge Date: 10/17/18
--- NOTE | 2018-10-17 09:36 | PCM.DC.SUM ---
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 (Chronic) Chronic renal failure, stage 4 (severe) (Chronic) Chronic steroid use (Chronic) Morbid obesity with BMI of 45.0-49.9, adult (Chronic) Osteopenia (Chronic) Pulmonary hypertension (Chronic) Personal history of DVT (deep vein thrombosis) (Chronic) Presence of IVC filter (Chronic) Lymphedema (Chronic) PVD (peripheral vascular disease) (Chronic) Paroxysmal atrial fibrillation (Chronic) S/P angioplasty with stent (Chronic ~12/05/16) EDGARDO to mid LAD 12/05/2016 DM2 (diabetes mellitus, type 2) (Chronic) Dyslipidemia (Chronic) Depression (Chronic) HTN (hypertension) (Chronic) Gout (Chronic) 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 Patient had a workup in the emergency room that was unremarkable. Patient states that her symptoms of nausea vomiting and are nonspecific and can be related to underlying infections. Patient did have a urinalysis performed that was positive and patient was started on ciprofloxacin. Patient did receive IV fluids as well as a Cipro and today the patient is feeling better. Patient states that she has been able to go back and forth to the bathroom utilizing her walker. Patient feels that her physical strength is at her baseline. Patient will be discharged to home with a total of 7 days of Cipro. Patient advised that she does have recurrent symptoms of the nausea vomiting and diarrhea that could be related with an underlying infection and that to be evaluated if she does not feel better right away. [] Patient Problems: Active and Suspected Problems (Last Reviewed 10/16/18 @ 11:00 by Theodore Vera DO) UTI (urinary tract infection) (Acute) - Physical Exam General: Alert, Cooperative, No apparent distress HEENT: Atraumatic, Normocephalic Oral: Moist Mucosa, No Gingival or Mucosal Lesions/ Ulcerations Neck: No Nodes, Thyroid Normal Size and Texture Lungs: Clear to auscultation, Normal air movement, No rhonchi, No wheeze Cardiovascular: Regular rate, Regular Rhythm, Normal S1, Normal S2, No murmurs Abdomen: Bowel Sounds Present, Soft, Non Tender, Non-Distended, Obese Extremities: No edema, No Calf Tenderness Psych/Mental Status: Normal Affect, Appropriate Vital Signs Temp Pulse Resp BP Pulse Ox 36.4 C L 61 16 132/56 H 98 10/17/18 02:17 10/17/18 02:17 10/17/18 02:17 10/17/18 02:17 10/17/18 02:17 Oxygen Delivery Method Room Air Weight: 94.2 kg Body Mass Index (BMI) 38.0 Finger Stick Blood Glucose 139 Intake and Output for Last 24 Hours 10/15/18 10/16/18 10/17/18 23:59 23:59 23:59 Intake Total 1237 / 1237 Output Total 100 / 100 50 / 50 Balance 1137 / 1137 -50 / -50 Laboratory Tests Past 24 Hrs 10/16/18 10/17/18 10/17/18 13:45 05:20 05:20 WBC 9.8 RBC 2.95 L Hgb 8.8 L Hct 28.5 L MCV 96.6 MCH 29.8 MCHC 30.9 L RDW 16.5 H RDW Differential 55.7 H Plt Count 180 MPV 10.8 Immature Gran % (Auto) 0.200 Neut % (Auto) 63.9 Lymph % (Auto) 25.1 [place] % (Auto) 6.2 Eos % (Auto) 4.3 Baso % (Auto) 0.3 Absolute Neuts (auto) 6.3 Absolute Lymphs (auto) 2.47 Total Counted Not Reportable Sodium 146 H Potassium 3.9 Chloride 111 H Carbon Dioxide 26.0 Anion Gap 9 BUN 27 H Creatinine 1.78 H Estim Creat Clear Calc 22.60 Est GFR (MDRD) Af Amer 36 L Est GFR (MDRD) Non-Af 30 L BUN/Creatinine Ratio 15.2 Glucose 98 Calcium 8.4 L Urine Color Yellow Urine Clarity Cloudy Urine pH 6.5 Ur Specific [place] 1.010 Urine Protein 100 H Urine Glucose (UA) Normal Urine Ketones Negative Urine Occult Blood 250 H Urine Nitrite Negative Urine Bilirubin Negative Urine Urobilinogen Normal Ur Leukocyte Esterase 500 H Urine RBC 5-10 SEEN Urine WBC >100 SEEN Ur Squamous Epith Cells 0 SEEN Urine Bacteria 0 SEEN Urine Mucus 0 SEEN POC Glucose 10/17/18 10/16/18 10/16/18 06:33 21:56 16:33 POC Glucose 134 H 104 132 H 10/16/18 13:02 POC Glucose 116 H Discharge Diet: 1800 Calorie Control Diet Discharge Activity: Return to Normal Activity Call your doctor if you observe: Fever of 101 or Higher, Inability to urinate, - - intractable nausea vomiting. Home Medications: Medications to take at Discharge Allopurinol 300 mg PO DAILY 10/16/18 Aspirin [Aspirin, Baby] 81 mg PO DAILY@0800 10/16/18 Ergocalciferol (Vitamin D2) [Drisdol] 50,000 unit PO WESA 10/16/18 Hydroxychloroquine [Plaquenil] 200 mg PO BIDCM 10/16/18 Insulin Glargine,Hum.rec.anlog [Lantus] 10 unit SQ QHS 10/16/18 Metoprolol Tartrate [Lopressor] 100 mg PO BID 10/16/18 Prednisone 5 mg PO DAILY 10/16/18 Simvastatin [Zocor] 40 mg PO QHS 10/16/18 Ciprofloxacin [Cipro] 250 mg PO BID #12 tablet 10/17/18 Following Prescrptions Were Given to Patient: Ciprofloxacin [Cipro] 250 mg PO BID #12 tablet Primary Care Physician: Sonja Feliciano NP-C [Primary Care Provider] - Within 2 Weeks Disposition: Home Minutes spent on discharge:: 28 Patient Condition:: Good Medical Necessity - Tobacco Use Smoking Status: Never smoker Meaningful Use Info Meaningful Use Diagnoses (Choose all that apply): None applicable Code Visit OBSV E&M: 98207 Observation care discharge
[2018-10-17 10:14] VITALS: PULSE 65
[2018-10-17] MEDS: Allopurinol 300 MG Tablet PO (10:14)
[2018-10-17] MEDS: Ciprofloxacin 250 MG Tablet PO (10:14)
[2018-10-17] MEDS: predniSONE 5 MG Tablet PO (10:14)
[2018-10-17] MEDS: Hydroxychloroquine 200 MG Tablet PO (10:14)
[2018-10-17] MEDS: Metoprolol Tartrate 100 MG Tablet PO (10:14)
[2018-10-17] MEDS: Aspirin 81 MG TAB.CHEW PO (10:15)
[2018-10-17 10:16] VITALS: BP 152/57; PULSE 65; RESP 18; TEMP 36.7; O2SAT 99
== END 2018-10-17 12:00 | disposition home or self-care (01) ==
LOC: ED 10:47 → MS3 11:04
PROVIDERS: Emergency Provider Emergency Medicine; Family Provider Nurse Practitioner; PCP Nurse Practitioner
DX: N39.0 Urinary tract infection, site not specified (principal); K52.9 Noninfective gastroenteritis and colitis, unspecified; I25.10 Atherosclerotic heart disease of native coronary artery without angina pectoris; I12.9 Hypertensive chronic kidney disease with stage 1 through stage 4 chronic kidney disease, or unspecified chronic kidney disease; E11.22 Type 2 diabetes mellitus with diabetic chronic kidney disease; N18.4 Chronic kidney disease, stage 4 (severe); E66.01 Morbid (severe) obesity due to excess calories; Z68.38 Body mass index [BMI] 38.0-38.9, adult; Z71.3 Dietary counseling and surveillance; E11.51 Type 2 diabetes mellitus with diabetic peripheral angiopathy without gangrene; Z79.899 Other long term (current) drug therapy; Z79.4 Long term (current) use of insulin; Z79.82 Long term (current) use of aspirin; Z86.718 Personal history of other venous thrombosis and embolism; I48.0 Paroxysmal atrial fibrillation; Z95.5 Presence of coronary angioplasty implant and graft; E78.5 Hyperlipidemia, unspecified
CPT/HCPCS: 36415; 80048; 80053; 81001; 82962; 85025; 87086; 87088; 87186; 96361; 96372; 96374; 99218; 99285; J7030; A4216; G0378; J2405

== ENCOUNTER → 2018-11-01 15:50 | Outpatient (CLI) | payer MEDICARE, SELFPAY ==
[2016-12-05 15:47] VITALS: BMI 35.6
[2018-10-16 11:52] VITALS: BMI 38.0
[2018-11-01 17:52] LABS: Absolute Lymphocyte Count 2.52 X10^3/ul (0.83-4.51); Absolute Neutrophil Count 7.4 X10^3/uL (2.0-7.7); Basophil# 0.06 X10^3/uL; Basophil% 0.5 % (0-1); Eosinophil# 0.38 X10^3/uL; Eosinophils% 3.5 % (0-5); Hematocrit 33.1 % (37-47); Lymphocyte # 2.52 X10^3/ul (4.0); Lymphocyte % 23.1 % (19-41); Mean Corp Hgb Conc 30.2 g/gl (32-36); Mean Corpuscular Hgb 29.2 pg (27.0-32.0); Mean Corpuscular Volume 96.5 fL (81-99); Mean Platelet Vol. 11.2 fl (6.2-12.0); Monocyte# 0.53 X10^3/uL; Monocyte% 4.8 % (0-10); Neutrophil # 7.41 X10^3/uL (2.7-7.7); Neutrophil % 67.8 % (47-70); Platelet Count 258 K/mm3 (150-450); RBC Distribution Width CV 16.1 % (11.6-14.6); Red Blood Count 3.43 M/mm3 (4.2-5.4); White Blood Count 10.9 K/mm3 (4.4-11.0)
[2018-11-01 17:54] LABS: POSITIVE COUNT NO; POSITIVE DIFFERENTIAL NO; POSITIVE MORPHOLOGY NO
[2018-11-01 18:16] LABS: ALB/GLOB Ratio 0.7 RATIO (0.9-2.4); AST(SGOT) 18 U/L (15-37); Alanine Aminotransfer ALT/SGPT 13 U/L (13-56); Albumin, Serum 3.2 g/dL (3.2-5.0); Alkaline Phosphatase 126 U/L (45-117); Anion Gap 12 (5-15); BUN 29 mg/dL (7-18); BUN/Creat Ratio 16.1 RATIO (10-20); Calcium,Total 9.5 mg/dL (8.5-10.1); Chloride 104 mmol/L (98-107); EST Glomerular Filtration Rate 29 mL/min (>60); Est Glom Filt Rate - Afr Amer 36 mL/min (>60); Globulin 4.3 g/dL (2.2-4.2); Glucose 140 mg/dL (74-106); Potassium 4.2 mmol/L (3.5-5.1); Protein, Total 7.5 g/dL (6.4-8.2); Sodium Level 143 mmol/L (136-145); Uric Acid 4.4 mg/dL (2.6-6.0)
== END ==
PROVIDERS: Family Provider Nurse Practitioner; PCP Nurse Practitioner; Referring Provider Internal Medicine Rheumatology; Visit Provider Internal Medicine Rheumatology
DX: M06.00 Rheumatoid arthritis without rheumatoid factor, unspecified site (principal); M10.00 Idiopathic gout, unspecified site; M17.0 Bilateral primary osteoarthritis of knee; M21.40 Flat foot [pes planus] (acquired), unspecified foot; I10 Essential (primary) hypertension; E78.5 Hyperlipidemia, unspecified; I26.99 Other pulmonary embolism without acute cor pulmonale; Z86.718 Personal history of other venous thrombosis and embolism
CPT/HCPCS: 36415; 80053; 84550; 85025

== ENCOUNTER 2019-03-24 10:00 | Outpatient (RCR) | payer MEDICARE, SELFPAY ==
[2016-12-05 15:47] VITALS: BMI 35.6
[2019-02-28 15:43] VITALS: BMI 39.4
[2019-03-03 09:44] VITALS: BP 149/75; PULSE 57; RESP 16; TEMP 36.9; BMI 38.4
--- NOTE | 2019-03-03 12:23 | PCM.WC.HP ---
(1) Ulcer of left lower extremity with fat layer exposed Status: Chronic Current Visit: Yes Code(s): L97.922 - Non-pressure chronic ulcer of unspecified part of left lower leg with fat layer exposed Comment: mixed venous arterial left posterior calf (2) DM2 (diabetes mellitus, type 2) Status: Chronic Current Visit: Yes Code(s): E11.9 - Type 2 diabetes mellitus without complications (3) Lymphedema Status: Chronic Current Visit: Yes Code(s): I89.0 - Lymphedema, not elsewhere classified (4) PVD (peripheral vascular disease) Status: Chronic Current Visit: Yes Code(s): I73.9 - Peripheral vascular disease, unspecified (5) Type 2 diabetes mellitus with other circulatory complications Status: Chronic Current Visit: No Code(s): E11.59 - Type 2 diabetes mellitus with other circulatory complications History of Present Illness Chief Complaint: Non healing Ulcers History of Wound: Ms Stapleton is a 73-year-old with past medical history as stated above well-known to the wound center who returns due to nonhealing left lower extremity ulcer. Last seen here at the wound center in March however patient states that she had a recurrence of the ulcer several months ago. She has been doing a wet-to-dry dressing at home with no significant improvement. She is scheduled to have bladder repair however surgery is on hold until she has total healing of the ulcer. She denies chills, fever or otherwise feeling of unwell. History of lymphedema however does not utilize compression stockings due to poor tolerance. She also has a history of diabetes mellitus which she states is very well controlled. 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 of both lower extremities (Chronic) Chronic renal failure, stage 4 (severe) (Chronic) Chronic steroid use (Chronic) Morbid obesity with BMI of 45.0-49.9, adult (Chronic) Osteopenia (Chronic) Pulmonary hypertension (Chronic) Personal history of DVT (deep vein thrombosis) (Chronic) Presence of IVC filter (Chronic) Ulcer of left lower extremity with fat layer exposed (Chronic) mixed venous arterial left posterior calf Lymphedema (Chronic) PVD (peripheral vascular disease) (Chronic) Paroxysmal atrial fibrillation (Chronic) S/P angioplasty with stent (Chronic ~12/05/16) EDGARDO to mid LAD 12/05/2016 DM2 (diabetes mellitus, type 2) (Chronic) Dyslipidemia (Chronic) Depression (Chronic) Gout (Chronic) 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) Surgical History: angioplasty, hysterectomy, rotator cuff repair, - Allergies/Adverse Reactions: Allergies cefepime HCl [From Maxipime] Allergy (Verified 03/03/19 10:01) Itching cephalexin monohydrate [From Keflex] Allergy (Verified 03/03/19 10:01) Hives clopidogrel [From Plavix] Allergy (Verified 03/03/19 10:01) Itching and hives all over hydromorphone HCl [From Dilaudid] Adverse Reaction (Verified 03/03/19 10:01) Itching piperacillin [From Zosyn] Adverse Reaction (Verified 03/03/19 10:01) Hives tazobactam [From Zosyn] Adverse Reaction (Verified 03/03/19 10:01) Hives Home Medications: Ambulatory Orders Medication Instructions Recorded Allopurinol 300 mg PO DAILY 10/16/18 Aspirin [Aspirin, Baby] 81 mg PO DAILY@0800 10/16/18 Ergocalciferol (Vitamin D2) 50,000 unit PO WESA 10/16/18 [Drisdol] Hydroxychloroquine [Plaquenil] 200 mg PO BIDCM 10/16/18 Insulin Glargine,Hum.rec.anlog 10 unit SQ QHS 10/16/18 [Lantus] Metoprolol Tartrate [Lopressor] 100 mg PO BID 10/16/18 Prednisone 5 mg PO DAILY 10/16/18 Simvastatin [Zocor] 40 mg PO QHS 10/16/18 Nitrofurantoin Macrocrystal 100 mg PO DAILY 03/03/19 [Nitrofurantoin] - Family History Paternal Family History: Family History (Last Reviewed 02/28/19 @ 15:45 by Little Waterman) Father Hypertension Brother CAD (coronary artery disease) Diabetes Maternal Family History: Family History (Last Reviewed 02/28/19 @ 15:45 by Little Waterman) Father Hypertension Brother CAD (coronary artery disease) Diabetes, Hypertension Smoking Status: Never smoker Review of Systems Constitutional: Denies: Anorexia, Chills, Fever Eyes: Denies: Blurred vision, Pain, Redness HEENT: Denies: Difficulty Hearing, Difficulty Swallowing Cardiovascular: Denies: Chest Pain, Chest Tightness Respiratory: Denies: Cough, Wheezing Gastrointestinal: Denies: Abdominal Pain, Hematemesis, Vomiting Skin: Denies: Jaundice - Physical Exam Vital Signs Temp Pulse Resp BP 98.4 F 57 L 16 149/75 H 03/03/19 09:44 03/03/19 09:44 03/03/19 09:44 03/03/19 09:44 General: Alert, Oriented x3, Cooperative, No apparent distress HEENT: Atraumatic, Normocephalic Oral: Moist Mucosa Neck: Supple Lungs: Normal air movement Cardiovascular: Regular rate, Regular Rhythm Abdomen: Soft, Non Tender, Obese Extremities: No cyanosis, Edema Skin: Ulcer/ Wound Wound Measurements and Assessment WC - Nurse 1 - General Ulcer Measurement Start: 03/03/19 09:40 Freq: Status: Active Protocol: Activity Type Activity Date Activity User E-Sign Co-Sign Detail Recorded Client Recorded Date Recorded By Document 03/03/19 09:44 [facility] [id number] 03/03/19 09:59 [facility] 03/03/19 09:44 Wound Center Nurse 1 [Ulcer Assessment] #9- LT NAVAS CLUSTER -Combined with other wound No -Current Size (cm) - Length 0.5 -Current Size (cm) - Width 2.5 -Current Size (cm) - Depth 0.1 -Total Square Cm 1.25 -Date of Last Picture (Recall this 03/03/19 field) -Photo Taken Yes -Epithelialization None Present -Tunneling No -Undermining/Tunneling No -Circular Undermining No -Classification - Thickness Partial Thickness -Exudate Amt None Present -Wound Margin Flat & Intact -Granulation Amt Medium (34-66%) -Granulation Quality Red -Slough/Fibrin Yes -Necrosis Amt Small (1-33%) -Necrotic Tissue Type Eschar -Texture (Cassi-wound Skin Appearance) Assessed -Moisture (Cassi-wound Skin Appearance Assessed ) -Color (Cassi-wound Skin Appearance) Assessed Erythema -Temperature (Cassi-wound Skin No Abnormality Appearance) (Pt Warm) -Tenderness on Palpation (Cassi-wound No Skin Appearance) -Ulcer Cleansing Rinsed/ Irrigated with Saline -Foul Odor after Cleansing No -Anesthetic Used 5% Lidocaine Gel #8- LT LATERAL LE CLUSTER -Combined with other wound No -Current Size (cm) - Length 3.5 -Current Size (cm) - Width 3.5 -Current Size (cm) - Depth 0.1 -Total Square Cm 12.25 -Date of Last Picture (Recall this 03/03/19 field) -Photo Taken Yes -Epithelialization None Present -Tunneling No -Undermining/Tunneling No -Circular Undermining No -Classification - Thickness Partial Thickness -Exudate Amt None Present -Wound Margin Flat & Intact -Granulation Amt Medium (34-66%) -Granulation Quality Red -Slough/Fibrin Yes -Necrosis Amt Small (1-33%) -Necrotic Tissue Type Eschar -Texture (Cassi-wound Skin Appearance) Assessed -Moisture (Cassi-wound Skin Appearance Assessed ) -Color (Cassi-wound Skin Appearance) Assessed Erythema -Temperature (Cassi-wound Skin No Abnormality Appearance) (Pt Warm) -Tenderness on Palpation (Cassi-wound No Skin Appearance) -Ulcer Cleansing Rinsed/ Irrigated with Saline -Foul Odor after Cleansing No -Anesthetic Used 5% Lidocaine Gel #7- LT CALF CLUSTER -Combined with other wound No -Current Size (cm) - Length 5.5 -Current Size (cm) - Width 6.4 -Current Size (cm) - Depth 0.1 -Total Square Cm 35.20 -Date of Last Picture (Recall this 03/03/19 field) -Photo Taken Yes -Epithelialization None Present -Tunneling No -Undermining/Tunneling No -Circular Undermining No -Classification - Thickness Full Thickness without Exposed Support Structure -Exudate Amt Small -Exudate Type Serous -Wound Margin Distinct, Outline Attached -Granulation Amt Medium (34-66%) -Granulation Quality Red -Slough/Fibrin Yes -Necrosis Amt Medium (34-66%) -Necrotic Tissue Type Adherent Slough -Texture (Cassi-wound Skin Appearance) Scarring -Moisture (Cassi-wound Skin Appearance Assessed ) -Color (Cassi-wound Skin Appearance) Assessed -Temperature (Cassi-wound Skin No Abnormality Appearance) (Pt Warm) -Tenderness on Palpation (Cassi-wound No Skin Appearance) -Ulcer Cleansing Rinsed/ Irrigated with Saline -Foul Odor after Cleansing No -Anesthetic Used 5% Lidocaine Gel [Edema Assessment] -Lower Limb Edema Present Yes -Right Calf (cm) 42 -Right Ankle (cm) 24.1 -Left Calf (cm) 40.5 -Left Ankle (cm) 22.2 WC - Nurse 2 - General Ulcer CM Notes Start: 03/03/19 09:40 Freq: Status: Active Protocol: Activity Type Activity Date Activity User E-Sign Co-Sign Detail Recorded Client Recorded Date Recorded By Document 03/03/19 10:27 MW [id number] 03/03/19 10:37 MW 03/03/19 10:27 Wound Center Nurse 2 [Procedure/Treatment] #9- LT NAVAS CLUSTER -Time 10:35 -Correct Patient Yes -Correct Side, Site, Position Yes -Correct Procedure Yes -Procedure Performed Yes -Type of Procedure Debridement -Clinical Debridement Subcutaneous -Post Debridement Size (cm) - Length 0.7 -Post Debridement Size (cm) - Width 0.7 -Post Debridement Size (cm) - Depth 0.1 -Total Square Cm 0.49 -Wound/Ulcer Outcome Not Healed -Ulcer Cleansing Rinsed/ Irrigated with Saline -Foul Odor after Cleansing No -Bioengineered Tissue No -Bleeding Controlled with Pressure -Offloading No -Treatment Response Procedure Tolerated Well #8- LT LATERAL LE CLUSTER -Time 10:35 -Correct Patient Yes -Correct Side, Site, Position Yes -Correct Procedure Yes -Procedure Performed Yes -Type of Procedure Debridement -Clinical Debridement Subcutaneous -Post Debridement Size (cm) - Length 1.5 -Post Debridement Size (cm) - Width 1.0 -Post Debridement Size (cm) - Depth 0.1 -Total Square Cm 1.50 -Wound/Ulcer Outcome Not Healed -Ulcer Cleansing Rinsed/ Irrigated with Saline -Foul Odor after Cleansing No -Bioengineered Tissue No -Bleeding Controlled with Pressure -Offloading No -Treatment Response Procedure Tolerated Well #7- LT CALF CLUSTER -Time 10:35 -Correct Patient Yes -Correct Side, Site, Position Yes -Correct Procedure Yes -Procedure Performed Yes -Type of Procedure Debridement -Clinical Debridement Subcutaneous -Post Debridement Size (cm) - Length 6.0 -Post Debridement Size (cm) - Width 6.0 -Post Debridement Size (cm) - Depth 0.2 -Total Square Cm 36.00 -Wound/Ulcer Outcome Not Healed -Ulcer Cleansing Rinsed/ Irrigated with Saline -Foul Odor after Cleansing No -Bioengineered Tissue No -Bleeding Controlled with Pressure -Offloading No -Treatment Response Procedure Tolerated Well [See Physician Procedure note for Specifics] Pain Scale: 0-10 Numeric [Pain] -Is Patient Pain Free? Yes Musculoskeletal: No Muscle Wasting Neurological: Cranial nerves II-XII grossly intact Psych/Mental Status: Normal Affect Debridement Note Post-Debridement Measurements/Treatment WC - Nurse 2 - General Ulcer CM Notes Start: 03/03/19 09:40 Freq: Status: Active Protocol: Activity Type Activity Date Activity User E-Sign Co-Sign Detail Recorded Client Recorded Date Recorded By Document 03/03/19 10:27 MW [id number] 03/03/19 10:37 MW 03/03/19 10:27 Wound Center Nurse 2 #9- LT NAVAS CLUSTER -Time 10:35 -Correct Patient Yes -Correct Side, Site, Position Yes -Correct Procedure Yes -Procedure Performed Yes -Type of Procedure Debridement -Clinical Debridement Subcutaneous -Post Debridement Size (cm) - Length 0.7 -Post Debridement Size (cm) - Width 0.7 -Post Debridement Size (cm) - Depth 0.1 -Total Square Cm 0.49 -Wound/Ulcer Outcome Not Healed -Ulcer Cleansing Rinsed/ Irrigated with Saline -Foul Odor after Cleansing No -Bioengineered Tissue No -Bleeding Controlled with Pressure -Offloading No -Treatment Response Procedure Tolerated Well #8- LT LATERAL LE CLUSTER -Time 10:35 -Correct Patient Yes -Correct Side, Site, Position Yes -Correct Procedure Yes -Procedure Performed Yes -Type of Procedure Debridement -Clinical Debridement Subcutaneous -Post Debridement Size (cm) - Length 1.5 -Post Debridement Size (cm) - Width 1.0 -Post Debridement Size (cm) - Depth 0.1 -Total Square Cm 1.50 -Wound/Ulcer Outcome Not Healed -Ulcer Cleansing Rinsed/ Irrigated with Saline -Foul Odor after Cleansing No -Bioengineered Tissue No -Bleeding Controlled with Pressure -Offloading No -Treatment Response Procedure Tolerated Well #7- LT CALF CLUSTER -Time 10:35 -Correct Patient Yes -Correct Side, Site, Position Yes -Correct Procedure Yes -Procedure Performed Yes -Type of Procedure Debridement -Clinical Debridement Subcutaneous -Post Debridement Size (cm) - Length 6.0 -Post Debridement Size (cm) - Width 6.0 -Post Debridement Size (cm) - Depth 0.2 -Total Square Cm 36.00 -Wound/Ulcer Outcome Not Healed -Ulcer Cleansing Rinsed/ Irrigated with Saline -Foul Odor after Cleansing No -Bioengineered Tissue No -Bleeding Controlled with Pressure -Offloading No -Treatment Response Procedure Tolerated Well Pain Scale: 0-10 Numeric Is Patient Pain Free? Yes Wound debrided: Left lower extremity posterior Wound Grade/Stage: Stage II Type of Debridement: Excisional debridement Anesthesia Used: 4% Lidocaine Solution Depth: Down to and including healthy tissue, in the subcutaneous layer Percentage of wound debrided: 100 Instrument Used: 5mm curette Tissue Removed: Slough and devitalized tissue Severity: Fat Layer Exposed Amount of bleeding with debridement: Mild Bleeding Controlled with: Compression and gauze Patient tolerated procedure well - Additional Wound Wound debrided: Left lateral cluster Wound Grade/Stage: Stage II Type of Debridement: Excisional debridement Anesthesia Used: 4% Lidocaine Solution Depth: Down to and including healthy tissue, in the subcutaneous layer Percentage of wound debrided: 100 Instrument Used: 3mm curette Tissue Removed: Slough and devitalized tissue Severity: Fat Layer Exposed Amount of bleeding with debridement: Mild Bleeding Controlled with: Pressure Patient tolerated procedure: Patient tolerated procedure well - Additional Wound Wound debrided: Left navas Wound Grade/Stage: Stage II Type of Debridement: Excisional debridement Anesthesia Used: 4% Lidocaine Solution Depth: Down to and including healthy tissue, in the subcutaneous layer Percentage of wound debrided: 100 Instrument Used: 3mm curette Tissue Removed: Slough and devitalized tissue Severity: Fat Layer Exposed Amount of bleeding with debridement: Mild Bleeding Controlled with: Pressure Patient tolerated procedure: Patient tolerated procedure well Assessment/Plan Active Problems (Last Reviewed 02/28/19 @ 15:45 by Little Waterman) Ulcer of left lower extremity with fat layer exposed (Chronic) mixed venous arterial left posterior calf Lymphedema (Chronic) PVD (peripheral vascular disease) (Chronic) DM2 (diabetes mellitus, type 2) (Chronic) Assessment: Nonhealing recurrent left lower extremity ulceration secondary to lymphedema and peripheral arterial disease. Diabetes mellitus. Plan: Debridement done as documented above. Procedure was well-tolerated. Tenderness around the posterior lower extremity also. Cultures taken. Fibracol with Adaptic over top to all ulcers. Change daily. Single layer Tubigrip for edema management. Due to chronicity and no significant improvement with traditional wound care, I believe she will benefit from an advanced wound care product such as epi-fix. Patient is willing to go forward with this. Optimal blood sugar control and increased protein intake recommended. She was advised to elevate lower extremities when seated and in bed. All her questions were answered and she was advised to call with any further questions or concerns. This note was generated with [employer] software. It may contain incorrect words, spelling, and punctuation that were not noted in checking the note before signing.
--- NOTE | 2019-03-03 12:27 | HP.PCM_ITS ---
(1) Ulcer of left lower extremity with fat layer exposed Status: Chronic Current Visit: Yes Code(s): L97.922 - Non-pressure chronic ulcer of unspecified part of left lower leg with fat layer exposed Comment: mixed venous arterial left posterior calf (2) DM2 (diabetes mellitus, type 2) Status: Chronic Current Visit: Yes Code(s): E11.9 - Type 2 diabetes mellitus without complications (3) Lymphedema Status: Chronic Current Visit: Yes Code(s): I89.0 - Lymphedema, not elsewher e classified (4) PVD (peripheral vascular disease) Status: Chronic Current Visit: Yes Code(s): I73.9 - Peripheral vascular disease, unspecified (5) Type 2 diabetes mellitus with other circulatory complications Status: Chronic Current Visit: No Code(s): E11.59 - Type 2 diabetes mellitus with other circulatory complications History of Present Illness Chief Complaint: Non healing Ulcers History of Wound: Ms Stapleton is a 73-year-old with past medical history as stated above well-known to the wound center who returns due to nonhealing left lower extremity ulcer. Last seen here at the wound center in March however patient states that she had a recurrence of the ulcer several months ago. She has been doing a wet-to-dry dressing at home with no significant improvement. She is scheduled to have bladder repair however surgery is on hold until she has total healing of the ulcer. She denies chills, fever or otherwise feeling of unwell. History of lymphedema however does not utilize compression stockings due to poor tolerance. She also has a history of diabetes mellitus which she states is very well controlled. 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 veins of both lower extremities (Chronic) Chronic renal failure, stage 4 (severe) (Chronic) Chronic steroid use (Chronic) Morbid obesity with BMI of 45.0-49.9, adult (Chronic) Osteopenia (Chronic) Pulmonary hypertension (Chronic) Personal history of DVT (deep vein thrombosis) (Chronic) Presence of IVC filter (Chronic) Ulcer of left lower extremity with fat layer exposed (Chronic) mixed venous arterial left posterior calf Lymphedema (Chronic) PVD (peripheral vascular disease) (Chronic) Paroxysmal atrial fibrillation (Chronic) S/P angioplasty with stent (Chronic ~12/05/16) EDGARDO to mid LAD 12/05/2016 DM2 (diabetes mellitus, type 2) (Chronic) Dyslipidemia (Chronic) Depression (Chronic) Gout (Chronic) 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) Surgical History: angioplasty, hysterectomy, rotator cuff repair, - Allergies/Adverse Reactions: Allergies cefepime HCl [From Maxipime] Allergy (Verified 03/03/19 10:01) Itching cephalexin monohydrate [From Keflex] Allergy (Verified 03/03/19 10:01) Hives clopidogrel [From Plavix] Allergy (Verified 03/03/19 10:01) Itching and hives all over hydromorphone HCl [From Dilaudid] Adverse Reaction (Verified 03/03/19 10:01) Itching piperacillin [From Zosyn] Adverse Reaction (Verified 03/03/19 10:01) Hives tazobactam [From Zosyn] Adverse Reaction (Verified 03/03/19 10:01) Hives Home Medications: Ambulatory Orders Medication Instructions Recorded Allopurinol 300 mg PO DAILY 10/16/18 Aspirin [Aspirin, Baby] 81 mg PO DAILY@0800 10/16/18 Ergocalciferol (Vitamin D2) 50,000 unit PO WESA 10/16/18 [Drisdol] Hydroxychloroquine [Plaquenil] 200 mg PO BIDCM 10/16/18 Insulin Glargine,Hum.rec.anlog 10 unit SQ QHS 10/16/18 [Lantus] Metoprolol Tartrate [Lopressor] 100 mg PO BID 10/16/18 Prednisone 5 mg PO DAILY 10/16/18 Simvastatin [Zocor] 40 mg PO QHS 10/16/18 Nitrofurantoin Macrocrystal 100 mg PO DAILY 03/03/19 [Nitrofurantoin] - Family History Paternal Family History: Family History (Last Reviewed 02/28/19 @ 15:45 by Little Waterman) Father Hypertension Brother CAD (coronary artery disease) Diabetes Maternal Family History: Family History (Last Reviewed 02/28/19 @ 15:45 by Little Waterman) Father Hypertension Brother CAD (coronary artery disease) Diabetes, Hypertension Smoking Status: Never smoker Review of Systems Constitutional: Denies: Anorexia, Chills, Fever Eyes: Denies: Blurred vision, Pain, Redness HEENT: Denies: Difficulty Hearing, Difficulty Swallowing Cardiovascular: Denies: Chest Pain, Chest Tightness Respiratory: Denies: Cough, Wheezing Gastrointestinal: Denies: Abdominal Pain, Hematemesis, Vomiting Skin: Denies: Jaundice - Physical Exam Vital Signs Temp Pulse Resp BP 98.4 F 57 L 16 149/75 H 03/03/19 09:44 03/03/19 09:44 03/03/19 09:44 03/03/19 09:44 General: Alert, Oriented x3, Cooperative, No apparent distress HEENT: Atraumatic, Normocephalic Oral: Moist Mucosa Neck: Supple Lungs: Normal air movement Cardiovascular: Regular rate, Regular Rhythm Abdomen: Soft, Non Tender, Obese Extremities: No cyanosis, Edema Skin: Ulcer/ Wound Wound Measurements and Assessment WC - Nurse 1 - General Ulcer Measurement Start: 03/03/19 09:40 Freq: Status: Active Protocol: Activity Type Activity Date Activity User E-Sign Co-Sign Detail Recorded Client Recorded Date Recorded By Document 03/03/19 09:44 [facility] [id number] 03/03/19 09:59 [facility] 03/03/19 09:44 Wound Center Nurse 1 [Ulcer Assessment] #9- LT NAVAS CLUSTER -Combined with other wound No -Current Size (cm) - Length 0.5 -Current Size (cm) - Width 2.5 -Current Size (cm) - Depth 0.1 -Total Square Cm 1.25 -Date of Last Picture (Recall this 03/03/19 field) -Photo Taken Yes -Epithelialization None Present -Tunneling No -Undermining/Tunneling No -Circular Undermining No -Classification - Thickness Partial Thickness -Exudate Amt None Present -Wound Margin Flat & Intact -Granulation Amt Medium (34-66%) -Granulation Quality Red -Slough/Fibrin Yes -Necrosis Amt Small (1-33%) -Necrotic Tissue Type Eschar -Texture (Cassi-wound Skin Appearance) Assessed -Moisture (Cassi-wound Skin Appearance Assessed ) -Color (Cassi-wound Skin Appearance) Assessed Erythema -Temperature (Cassi-wound Skin No Abnormality Appearance) (Pt Warm) -Tenderness on Palpation (Cassi-wound No Skin Appearance) -Ulcer Cleansing Rinsed/ Irrigated with Saline -Foul Odor after Cleansing No -Anesthetic Used 5% Lidocaine Gel #8- LT LATERAL LE CLUSTER -Combined with other wound No -Current Size (cm) - Length 3.5 -Current Size (cm) - Width 3.5 -Current Size (cm) - Depth 0.1 -Total Square Cm 12.25 -Date of Last Picture (Recall this 03/03/19 field) -Photo Taken Yes -Epithelialization None Present -Tunneling No -Undermining/Tunneling No -Circular Undermining No -Classification - Thickness Partial Thickness -Exudate Amt None Present -Wound Margin Flat & Intact -Granulation Amt Medium (34-66%) -Granulation Quality Red -Slough/Fibrin Yes -Necrosis Amt Small (1-33%) -Necrotic Tissue Type Eschar -Texture (Cassi-wound Skin Appearance) Assessed -Moisture (Csasi-wound Skin Appearance Assessed ) -Color (Cassi-wound Skin Appearance) Assessed Erythema -Temperature (Cassi-wound Skin No Abnormality Appearance) (Pt Warm) -Tenderness on Palpation (Cassi-wound No Skin Appearance) -Ulcer Cleansing Rinsed/ Irrigated with Saline -Foul Odor after Cleansing No -Anesthetic Used 5% Lidocaine Gel #7- LT CALF CLUSTER -Combined with other wound No -Current Size (cm) - Length 5.5 -Current Size (cm) - Width 6.4 -Current Size (cm) - Depth 0.1 -Total Square Cm 35.20 -Date of Last Picture (Recall this 03/03/19 field) -Photo Taken Yes -Epithelialization None Present -Tunneling No -Undermining/Tunneling No -Circular Undermining No -Classification - Thickness Full Thickness without Exposed Support Structure -Exudate Amt Small -Exudate Type Serous -Wound Margin Distinct, Outline Attached -Granulation Amt Medium (34-66%) -Granulation Quality Red -Slough/Fibrin Yes -Necrosis Amt Medium (34-66%) -Necrotic Tissue Type Adherent Slough -Texture (Cassi-wound Skin Appearance) Scarring -Moisture (Cassi-wound Skin Appearance Assessed ) -Color (Cassi-wound Skin Appearance) Assessed -Temperature (Cassi-wound Skin No Abnormality Appearance) (Pt Warm) -Tenderness on Palpation (Cassi-wound No Skin Appearance) -Ulcer Cleansing Rinsed/ Irrigated with Saline -Foul Odor after Cleansing No -Anesthetic Used 5% Lidocaine Gel [Edema Assessment] -Lower Limb Edema Present Yes -Right Calf (cm) 42 -Right Ankle (cm) 24.1 -Left Calf (cm) 40.5 -Left Ankle (cm) 22.2 WC - Nurse 2 - General Ulcer CM Notes Start: 03/03/19 09:40 Freq: Status: Active Protocol: Activity Type Activity Date Activity User E-Sign Co-Sign Detail Recorded Client Recorded Date Recorded By Document 03/03/19 10:27 MW [id number] 03/03/19 10:37 MW 03/03/19 10:27 Wound Center Nurse 2 [Procedure/Treatment] #9- LT NAVAS CLUSTER -Time 10:35 -Correct Patient Yes -Correct Side, Site, Position Yes -Correct Procedure Yes -Procedure Performed Yes -Type of Procedure Debridement -Clinical Debridement Subcutaneous -Post Debridement Size (cm) - Length 0.7 -Post Debridement Size (cm) - Width 0.7 -Post Debridement Size (cm) - Depth 0.1 -Total Square Cm 0.49 -Wound/Ulcer Outcome Not Healed -Ulcer Cleansing Rinsed/ Irrigated with Saline -Foul Odor after Cleansing No -Bioengineered Tissue No -Bleeding Controlled with Pressure -Offloading No -Treatment Response Procedure Tolerated Well #8- LT LATERAL LE CLUSTER -Time 10:35 -Correct Patient Yes -Correct Side, Site, Position Yes -Correct Procedure Yes -Procedure Performed Yes -Type of Procedure Debridement -Clinical Debridement Subcutaneous -Post Debridement Size (cm) - Length 1.5 -Post Debridement Size (cm) - Width 1.0 -Post Debridement Size (cm) - Depth 0.1 -Total Square Cm 1.50 -Wound/Ulcer Outcome Not Healed -Ulcer Cleansing Rinsed/ Irrigated with Saline -Foul Odor after Cleansing No -Bioengineered Tissue No -Bleeding Controlled with Pressure -Offloading No -Treatment Response Procedure Tolerated Well #7- LT CALF CLUSTER -Time 10:35 -Correct Patient Yes -Correct Side, Site, Position Yes -Correct Procedure Yes -Procedure Performed Yes -Type of Procedure Debridement -Clinical Debridement Subcutaneous -Post Debridement Size (cm) - Length 6.0 -Post Debridement Size (cm) - Width 6.0 -Post Debridement Size (cm) - Depth 0.2 -Total Square Cm 36.00 -Wound/Ulcer Outcome Not Healed -Ulcer Cleansing Rinsed/ Irrigated with Saline -Foul Odor after Cleansing No -Bioengineered Tissue No -Bleeding Controlled with Pressure -Offloading No -Treatment Response Procedure Tolerated Well [See Physician Procedure note for Specifics] Pain Scale: 0-10 Numeric [Pain] -Is Patient Pain Free? Yes Musculoskeletal: No Muscle Wasting Neurological: Cranial nerves II-XII grossly intact Psych/Mental Status: Normal Affect Debridement Note Post-Debridement Measurements/Treatment WC - Nurse 2 - General Ulcer CM Notes Start: 03/03/19 09:40 Freq: Status: Active Protocol: Activity Type Activity Date Activity User E-Sign Co-Sign Detail Recorded Client Recorded Date Recorded By Document 03/03/19 10:27 MW [id number] 03/03/19 10:37 MW 03/03/19 10:27 Wound Center Nurse 2 #9- LT NAVAS CLUSTER -Time 10:35 -Correct Patient Yes -Correct Side, Site, Position Yes -Correct Procedure Yes -Procedure Performed Yes -Type of Procedure Debridement -Clinical Debridement Subcutaneous -Post Debridement Size (cm) - Length 0.7 -Post Debridement Size (cm) - Width 0.7 -Post Debridement Size (cm) - Depth 0.1 -Total Square Cm 0.49 -Wound/Ulcer Outcome Not Healed -Ulcer Cleansing Rinsed/ Irrigated with Saline -Foul Odor after Cleansing No -Bioengineered Tissue No -Bleeding Controlled with Pressure -Offloading No -Treatment Response Procedure Tolerated Well #8- LT LATERAL LE CLUSTER -Time 10:35 -Correct Patient Yes -Correct Side, Site, Position Yes -Correct Procedure Yes -Procedure Performed Yes -Type of Procedure Debridement -Clinical Debridement Subcutaneous -Post Debridement Size (cm) - Length 1.5 -Post Debridement Size (cm) - Width 1.0 -Post Debridement Size (cm) - Depth 0.1 -Total Square Cm 1.50 -Wound/Ulcer Outcome Not Healed -Ulcer Cleansing Rinsed/ Irrigated with Saline -Foul Odor after Cleansing No -Bioengineered Tissue No -Bleeding Controlled with Pressure -Offloading No -Treatment Response Procedure Tolerated Well #7- LT CALF CLUSTER -Time 10:35 -Correct Patient Yes -Correct Side, Site, Position Yes -Correct Procedure Yes -Procedure Performed Yes -Type of Procedure Debridement -Clinical Debridement Subcutaneous -Post Debridement Size (cm) - Length 6.0 -Post Debridement Size (cm) - Width 6.0 -Post Debridement Size (cm) - Depth 0.2 -Total Square Cm 36.00 -Wound/Ulcer Outcome Not Healed -Ulcer Cleansing Rinsed/ Irrigated with Saline -Foul Odor after Cleansing No -Bioengineered Tissue No -Bleeding Controlled with Pressure -Offloading No -Treatment Response Procedure Tolerated Well Pain Scale: 0-10 Numeric Is Patient Pain Free? Yes Wound debrided: Left lower extremity posterior Wound Grade/Stage: Stage II Type of Debridement: Excisional debridement Anesthesia Used: 4% Lidocaine Solution Depth: Down to and including healthy tissue, in the subcutaneous layer Percentage of wound debrided: 100 Instrument Used: 5mm curette Tissue Removed: Slough and devitalized tissue Severity: Fat Layer Exposed Amount of bleeding with debridement: Mild Bleeding Controlled with: Compression and gauze Patient tolerated procedure well - Additional Wound Wound debrided: Left lateral cluster Wound Grade/Stage: Stage II Type of Debridement: Excisional debridement Anesthesia Used: 4% Lidocaine Solution Depth: Down to and including healthy tissue, in the subcutaneous layer Percentage of wound debrided: 100 Instrument Used: 3mm curette Tissue Removed: Slough and devitalized tissue Severity: Fat Layer Exposed Amount of bleeding with debridement: Mild Bleeding Controlled with: Pressure Patient tolerated procedure: Patient tolerated procedure well - Additional Wound Wound debrided: Left navas Wound Grade/Stage: Stage II Type of Debridement: Excisional debridement Anesthesia Used: 4% Lidocaine Solution Depth: Down to and including healthy tissue, in the subcutaneous layer Percentage of wound debrided: 100 Instrument Used: 3mm curette Tissue Removed: Slough and devitalized tissue Severity: Fat Layer Exposed Amount of bleeding with debridement: Mild Bleeding Controlled with: Pressure Patient tolerated procedure: Patient tolerated procedure well Assessment/Plan Active Problems (Last Reviewed 02/28/19 @ 15:45 by Little Waterman) Ulcer of left lower extremity with fat layer exposed (Chronic) mixed venous arterial left posterior calf Lymphedema (Chronic) PVD (peripheral vascular disease) (Chronic) DM2 (diabetes mellitus, type 2) (Chronic) Assessment: Nonhealing recurrent left lower extremity ulceration secondary to lymphedema and peripheral arterial disease. Diabetes mellitus. Plan: Debridement done as documented above. Procedure was well-tolerated. Tenderness around the posterior lower extremity also. Cultures taken. Fibracol with Adaptic over top to all ulcers. Change daily. Single layer Tubigrip for edema management. Due to chronicity and no significant improvement with traditional wound care, I believe she will benefit from an advanced wound care product such as epi-fix. Patient is willing to go forward with this. Optimal blood sugar control and increased protein intake recommended. She was advised to elevate lower extremities when seated and in bed. All her questions were answered and she was advised to call with any further questions or concerns. This note was generated with [employer] dictation software. It may contain incorrect words, spelling, and punctuation that were not noted in checking the note before signing.
[2019-03-03 14:55] LABS: Prealbumin 20.4 mg/dL (20.0-40.0)
[2019-03-10 11:50] VITALS: BP 172/80; PULSE 59; RESP 16; TEMP 36.4; BMI 38.4
--- NOTE | 2019-03-10 12:20 | PCM.WC.PN ---
(1) Ulcer of left lower extremity with fat layer exposed Status: Chronic Current Visit: Yes Code(s): L97.922 - Non-pressure chronic ulcer of unspecified part of left lower leg with fat layer exposed Comment: mixed venous arterial left posterior calf (2) DM2 (diabetes mellitus, type 2) Status: Chronic Current Visit: Yes Code(s): E11.9 - Type 2 diabetes mellitus without complications (3) Lymphedema Status: Chronic Current Visit: Yes Code(s): I89.0 - Lymphedema, not elsewhere classified (4) PVD (peripheral vascular disease) Status: Chronic Current Visit: Yes Code(s): I73.9 - Peripheral vascular disease, unspecified (5) 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 Last seen here at the wound center in March however patient states that she had a recurrence of the ulcer several months ago. She has been doing a wet-to-dry dressing at home with no significant improvement. She is scheduled to have bladder repair however surgery is on hold until she has total healing of the ulcer. She denies chills, fever or otherwise feeling of unwell. History of lymphedema however does not utilize compression stockings due to poor tolerance. She also has a history of diabetes mellitus which she states is very well controlled. Progress of Wound: Improving. No new concerns at this time. - Physical Exam Vital Signs Temp Pulse Resp BP 97.5 F L 59 L 16 172/80 H 03/10/19 11:50 03/10/19 11:50 03/10/19 11:50 03/10/19 11:50 General: Alert, Oriented x3, Cooperative, No apparent distress HEENT: Atraumatic, Normocephalic Oral: Moist Mucosa Neck: Supple Lungs: Normal air movement Abdomen: Non Tender, Obese Extremities: No cyanosis, Edema Skin: Ulcer/ Wound Wound Measurements and Assessment WC - Nurse 1 - General Ulcer Measurement Start: 03/03/19 09:40 Freq: Status: Active Protocol: Activity Type Activity Date Activity User E-Sign Co-Sign Detail Recorded Client Recorded Date Recorded By Document 03/10/19 11:50 [facility] [id number] 03/10/19 11:57 [facility] 03/10/19 11:50 Wound Center Nurse 1 [Ulcer Assessment] #9- LT NAVAS CLUSTER -Combined with other wound No -Current Size (cm) - Length 0.4 -Current Size (cm) - Width 0.5 -Current Size (cm) - Depth 0.1 -Total Square Cm 0.20 -Photo Taken No -Epithelialization Medium 34-66% -Tunneling No -Undermining/Tunneling No -Circular Undermining No -Exudate Amt Small -Exudate Type Serous -Wound Margin Flat & Intact -Granulation Amt None Present (0 %) -Slough/Fibrin Yes -Necrosis Amt Large (67-100%) -Necrotic Tissue Type Eschar -Texture (Cassi-wound Skin Appearance) Assessed Scarring -Moisture (Cassi-wound Skin Appearance Assessed ) Dry/Scaly -Color (Cassi-wound Skin Appearance) Assessed -Temperature (Cassi-wound Skin No Abnormality Appearance) (Pt Warm) -Tenderness on Palpation (Cassi-wound No Skin Appearance) -Ulcer Cleansing Rinsed/ Irrigated with Saline -Foul Odor after Cleansing No -Anesthetic Used 5% Lidocaine Gel #8- LT LATERAL LE CLUSTER -Combined with other wound No -Current Size (cm) - Length 0.8 -Current Size (cm) - Width 0.4 -Current Size (cm) - Depth 0.1 -Total Square Cm 0.32 -Photo Taken No -Epithelialization Small 1-33% -Tunneling No -Undermining/Tunneling No -Circular Undermining No -Exudate Amt Small -Exudate Type Serous -Wound Margin Flat & Intact -Granulation Amt Large (67-100%) -Granulation Quality Red -Slough/Fibrin No -Necrosis Amt None Present (0 %) -Texture (Cassi-wound Skin Appearance) Assessed Scarring -Moisture (Cassi-wound Skin Appearance Assessed ) Dry/Scaly -Color (Cassi-wound Skin Appearance) Assessed -Temperature (Cassi-wound Skin No Abnormality Appearance) (Pt Warm) -Tenderness on Palpation (Cassi-wound No Skin Appearance) -Ulcer Cleansing Rinsed/ Irrigated with Saline -Foul Odor after Cleansing No -Anesthetic Used 5% Lidocaine Gel #7- LT CALF CLUSTER -Combined with other wound No -Current Size (cm) - Length 4.6 -Current Size (cm) - Width 5 -Current Size (cm) - Depth 0.2 -Total Square Cm 23.0 -Photo Taken No -Epithelialization Small 1-33% -Tunneling No -Undermining/Tunneling No -Circular Undermining No -Exudate Amt Medium -Exudate Type Serosanguineous -Wound Margin Distinct, Outline Attached -Granulation Amt Medium (34-66%) -Granulation Quality Pale Red -Slough/Fibrin Yes -Necrosis Amt Medium (34-66%) -Necrotic Tissue Type Adherent Slough -Texture (Cassi-wound Skin Appearance) Assessed Scarring -Moisture (Cassi-wound Skin Appearance Assessed ) Dry/Scaly -Color (Cassi-wound Skin Appearance) Assessed -Temperature (Cassi-wound Skin No Abnormality Appearance) (Pt Warm) -Tenderness on Palpation (Cassi-wound No Skin Appearance) -Ulcer Cleansing Rinsed/ Irrigated with Saline -Foul Odor after Cleansing No -Anesthetic Used 5% Lidocaine Gel [Edema Assessment] -Lower Limb Edema Present Yes -Left Calf (cm) 39.5 -Left Ankle (cm) 22.5 WC - Nurse 2 - General Ulcer CM Notes Start: 03/03/19 09:40 Freq: Status: Active Protocol: Activity Type Activity Date Activity User E-Sign Co-Sign Detail Recorded Client Recorded Date Recorded By Document 03/10/19 12:16 MW [id number] 03/10/19 12:20 MW 03/10/19 12:16 Wound Center Nurse 2 [Procedure/Treatment] #9- LT NAVAS CLUSTER -Time 12:19 -Correct Patient Yes -Correct Side, Site, Position Yes -Correct Procedure Yes -Procedure Performed Yes -Type of Procedure Debridement -Clinical Debridement Subcutaneous -Post Debridement Size (cm) - Length 0.4 -Post Debridement Size (cm) - Width 1.0 -Post Debridement Size (cm) - Depth 0.1 -Total Square Cm 0.40 -Wound/Ulcer Outcome Not Healed -Ulcer Cleansing Rinsed/ Irrigated with Saline -Foul Odor after Cleansing No -Bioengineered Tissue No -Bleeding Controlled with Pressure -Offloading No -Treatment Response Procedure Tolerated Well #8- LT LATERAL LE CLUSTER -Time 12:19 -Correct Patient Yes -Correct Side, Site, Position Yes -Correct Procedure Yes -Procedure Performed Yes -Type of Procedure Debridement -Clinical Debridement Subcutaneous -Post Debridement Size (cm) - Length 0.6 -Post Debridement Size (cm) - Width 0.5 -Post Debridement Size (cm) - Depth 0.1 -Total Square Cm 0.30 -Wound/Ulcer Outcome Not Healed -Ulcer Cleansing Rinsed/ Irrigated with Saline -Foul Odor after Cleansing No -Bioengineered Tissue No -Bleeding Controlled with Pressure -Offloading No -Treatment Response Procedure Tolerated Well #7- LT CALF CLUSTER -Time 12:19 -Correct Patient Yes -Correct Side, Site, Position Yes -Correct Procedure Yes -Procedure Performed Yes -Type of Procedure Debridement -Clinical Debridement Subcutaneous -Post Debridement Size (cm) - Length 4.5 -Post Debridement Size (cm) - Width 5.5 -Post Debridement Size (cm) - Depth 0.1 -Total Square Cm 24.75 -Wound/Ulcer Outcome Not Healed -Ulcer Cleansing Rinsed/ Irrigated with Saline -Foul Odor after Cleansing No -Bioengineered Tissue No -Bleeding Controlled with Pressure -Offloading No -Treatment Response Procedure Tolerated Well [See Physician Procedure note for Specifics] Pain Scale: 0-10 Numeric [Pain] -Is Patient Pain Free? Yes Musculoskeletal: No Muscle Wasting Neurological: Cranial nerves II-XII grossly intact Psych/Mental Status: Normal Affect Debridement Note Post-Debridement Measurements/Treatment WC - Nurse 2 - General Ulcer CM Notes Start: 03/03/19 09:40 Freq: Status: Active Protocol: Activity Type Activity Date Activity User E-Sign Co-Sign Detail Recorded Client Recorded Date Recorded By Document 03/03/19 10:27 MW [id number] 03/03/19 10:37 MW Document 03/10/19 12:16 MW [id number] 03/10/19 12:20 MW 03/03/19 03/10/19 10:27 12:16 Wound Center Nurse 2 #9- LT NAVAS CLUSTER -Time 10:35 12:19 -Correct Patient Yes Yes -Correct Side, Site, Position Yes Yes -Correct Procedure Yes Yes -Procedure Performed Yes Yes -Type of Procedure Debridement Debridement -Clinical Debridement Subcutaneous Subcutaneous -Post Debridement Size (cm) - Length 0.7 0.4 -Post Debridement Size (cm) - Width 0.7 1.0 -Post Debridement Size (cm) - Depth 0.1 0.1 -Total Square Cm 0.49 0.40 -Wound/Ulcer Outcome Not Healed Not Healed -Ulcer Cleansing Rinsed/ Rinsed/ Irrigated with Irrigated with Saline Saline -Foul Odor after Cleansing No No -Bioengineered Tissue No No -Bleeding Controlled with Pressure Pressure -Offloading No No -Treatment Response Procedure Procedure Tolerated Well Tolerated Well #8- LT LATERAL LE CLUSTER -Time 10:35 12:19 -Correct Patient Yes Yes -Correct Side, Site, Position Yes Yes -Correct Procedure Yes Yes -Procedure Performed Yes Yes -Type of Procedure Debridement Debridement -Clinical Debridement Subcutaneous Subcutaneous -Post Debridement Size (cm) - Length 1.5 0.6 -Post Debridement Size (cm) - Width 1.0 0.5 -Post Debridement Size (cm) - Depth 0.1 0.1 -Total Square Cm 1.50 0.30 -Wound/Ulcer Outcome Not Healed Not Healed -Ulcer Cleansing Rinsed/ Rinsed/ Irrigated with Irrigated with Saline Saline -Foul Odor after Cleansing No No -Bioengineered Tissue No No -Bleeding Controlled with Pressure Pressure -Offloading No No -Treatment Response Procedure Procedure Tolerated Well Tolerated Well #7- LT CALF CLUSTER -Time 10:35 12:19 -Correct Patient Yes Yes -Correct Side, Site, Position Yes Yes -Correct Procedure Yes Yes -Procedure Performed Yes Yes -Type of Procedure Debridement Debridement -Clinical Debridement Subcutaneous Subcutaneous -Post Debridement Size (cm) - Length 6.0 4.5 -Post Debridement Size (cm) - Width 6.0 5.5 -Post Debridement Size (cm) - Depth 0.2 0.1 -Total Square Cm 36.00 24.75 -Wound/Ulcer Outcome Not Healed Not Healed -Ulcer Cleansing Rinsed/ Rinsed/ Irrigated with Irrigated with Saline Saline -Foul Odor after Cleansing No No -Bioengineered Tissue No No -Bleeding Controlled with Pressure Pressure -Offloading No No -Treatment Response Procedure Procedure Tolerated Well Tolerated Well Pain Scale: 0-10 Numeric Is Patient Pain Free? Yes Yes Wound debrided: Left lower extremity posterior Wound Grade/Stage: Stage II Type of Debridement: Excisional debridement Anesthesia Used: 4% Lidocaine Solution Depth: Down to and including healthy tissue, in the subcutaneous layer Percentage of wound debrided: 100 Instrument Used: 5mm curette Tissue Removed: slough and devitalized tissue Severity: Fat Layer Exposed Amount of bleeding with debridement: Mild Bleeding Controlled with: Pressure Patient tolerated procedure well - Additional Wound Wound debrided: Left navas Wound Grade/Stage: Stage II Type of Debridement: Excisional debridement Anesthesia Used: 4% Lidocaine Solution Depth: Down to and including healthy tissue, in the subcutaneous layer Percentage of wound debrided: 100 Instrument Used: 3mm curette Tissue Removed: Slough and devitalized tissue Severity: Fat Layer Exposed Amount of bleeding with debridement: Mild Bleeding Controlled with: Pressure Patient tolerated procedure: Patient tolerated procedure well - Additional Wound Wound debrided: Left lateral cluster Wound Grade/Stage: Stage II Type of Debridement: Excisional debridement Anesthesia Used: 4% Lidocaine Solution Depth: Down to and including healthy tissue, in the subcutaneous layer Percentage of wound debrided: 100 Instrument Used: 3mm curette Tissue Removed: Slough and devitalized tissue Severity: Fat Layer Exposed Amount of bleeding with debridement: Mild Bleeding Controlled with: Pressure Patient tolerated procedure: Patient tolerated procedure well Assessment/Plan Active Problems (Last Reviewed 02/28/19 @ 15:45 by Little Waterman) Ulcer of left lower extremity with fat layer exposed (Chronic) mixed venous arterial left posterior calf Lymphedema (Chronic) PVD (peripheral vascular disease) (Chronic) DM2 (diabetes mellitus, type 2) (Chronic) Assessment: Nonhealing recurrent left lower extremity ulceration secondary to lymphedema and peripheral arterial disease. Diabetes mellitus. Plan: Improving. No new concerns at this time. Debridement done as documented above. Procedure was well-tolerated. No significant tenderness today. Continue Fibracol with Adaptic over top to all ulcers. Change daily. Single layer Tubigrip for edema management. Due to chronicity and no significant improvement with traditional wound care, I believe she will benefit from an advanced wound care product such as epi-fix. Patient is willing to go forward with this. Optimal blood sugar control and increased protein intake recommended. She was advised to elevate lower extremities when seated and in bed. All her questions were answered and she was advised to call with any further questions or concerns. This note was generated with [employer] software. It may contain incorrect words, spelling, and punctuation that were not noted in checking the note before signing.
--- NOTE | 2019-03-10 12:24 | PN.PCM_ITS ---
(1) Ulcer of left lower extremity with fat layer exposed Status: Chronic Current Visit: Yes Code(s): L97.922 - Non-pressure chronic ulcer of unspecified part of left lower leg with fat layer exposed Comment: mixed venous arterial left posterior calf (2) DM2 (diabetes mellitus, type 2) Status: Chronic Current Visit: Yes Code(s): E11.9 - Type 2 diabetes mellitus without complications (3) Lymphedema Status: Chronic Current Visit: Yes Code(s): I89.0 - Lymphedema, not elsewher e classified (4) PVD (peripheral vascular disease) Status: Chronic Current Visit: Yes Code(s): I73.9 - Peripheral vascular disease, unspecified (5) 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 Last seen here at the wound center in March however patient states that she had a recurrence of the ulcer several months ago. She has been doing a wet-to-dry dressing at home with no significant improvement. She is scheduled to have bladder repair however surgery is on hold until she has total healing of the ulcer. She denies chills, fever or otherwise feeling of unwell. History of lymphedema however does not utilize compression stockings due to poor tolerance. She also has a history of diabetes mellitus which she states is very well controlled. Progress of Wound: Improving. No new concerns at this time. - Physical Exam Vital Signs Temp Pulse Resp BP 97.5 F L 59 L 16 172/80 H 03/10/19 11:50 03/10/19 11:50 03/10/19 11:50 03/10/19 11:50 General: Alert, Oriented x3, Cooperative, No apparent distress HEENT: Atraumatic, Normocephalic Oral: Moist Mucosa Neck: Supple Lungs: Normal air movement Abdomen: Non Tender, Obese Extremities: No cyanosis, Edema Skin: Ulcer/ Wound Wound Measurements and Assessment WC - Nurse 1 - General Ulcer Measurement Start: 03/03/19 09:40 Freq: Status: Active Protocol: Activity Type Activity Date Activity User E-Sign Co-Sign Detail Recorded Client Recorded Date Recorded By Document 03/10/19 11:50 [facility] [id number] 03/10/19 11:57 [facility] 03/10/19 11:50 Wound Center Nurse 1 [Ulcer Assessment] #9- LT NAVAS CLUSTER -Combined with other wound No -Current Size (cm) - Length 0.4 -Current Size (cm) - Width 0.5 -Current Size (cm) - Depth 0.1 -Total Square Cm 0.20 -Photo Taken No -Epithelialization Medium 34-66% -Tunneling No -Undermining/Tunneling No -Circular Undermining No -Exudate Amt Small -Exudate Type Serous -Wound Margin Flat & Intact -Granulation Amt None Present (0 %) -Slough/Fibrin Yes -Necrosis Amt Large (67-100%) -Necrotic Tissue Type Eschar -Texture (Cassi-wound Skin Appearance) Assessed Scarring -Moisture (Cassi-wound Skin Appearance Assessed ) Dry/Scaly -Color (Cassi-wound Skin Appearance) Assessed -Temperature (Cassi-wound Skin No Abnormality Appearance) (Pt Warm) -Tenderness on Palpation (Cassi-wound No Skin Appearance) -Ulcer Cleansing Rinsed/ Irrigated with Saline -Foul Odor after Cleansing No -Anesthetic Used 5% Lidocaine Gel #8- LT LATERAL LE CLUSTER -Combined with other wound No -Current Size (cm) - Length 0.8 -Current Size (cm) - Width 0.4 -Current Size (cm) - Depth 0.1 -Total Square Cm 0.32 -Photo Taken No -Epithelialization Small 1-33% -Tunneling No -Undermining/Tunneling No -Circular Undermining No -Exudate Amt Small -Exudate Type Serous -Wound Margin Flat & Intact -Granulation Amt Large (67-100%) -Granulation Quality Red -Slough/Fibrin No -Necrosis Amt None Present (0 %) -Texture (Cassi-wound Skin Appearance) Assessed Scarring -Moisture (Cassi-wound Skin Appearance Assessed ) Dry/Scaly -Color (Cassi-wound Skin Appearance) Assessed -Temperature (Cassi-wound Skin No Abnormality Appearance) (Pt Warm) -Tenderness on Palpation (Cassi-wound No Skin Appearance) -Ulcer Cleansing Rinsed/ Irrigated with Saline -Foul Odor after Cleansing No -Anesthetic Used 5% Lidocaine Gel #7- LT CALF CLUSTER -Combined with other wound No -Current Size (cm) - Length 4.6 -Current Size (cm) - Width 5 -Current Size (cm) - Depth 0.2 -Total Square Cm 23.0 -Photo Taken No -Epithelialization Small 1-33% -Tunneling No -Undermining/Tunneling No -Circular Undermining No -Exudate Amt Medium -Exudate Type Serosanguineous -Wound Margin Distinct, Outline Attached -Granulation Amt Medium (34-66%) -Granulation Quality Pale Red -Slough/Fibrin Yes -Necrosis Amt Medium (34-66%) -Necrotic Tissue Type Adherent Slough -Texture (Cassi-wound Skin Appearance) Assessed Scarring -Moisture (Casis-wound Skin Appearance Assessed ) Dry/Scaly -Color (Cassi-wound Skin Appearance) Assessed -Temperature (Cassi-wound Skin No Abnormality Appearance) (Pt Warm) -Tenderness on Palpation (Cassi-wound No Skin Appearance) -Ulcer Cleansing Rinsed/ Irrigated with Saline -Foul Odor after Cleansing No -Anesthetic Used 5% Lidocaine Gel [Edema Assessment] -Lower Limb Edema Present Yes -Left Calf (cm) 39.5 -Left Ankle (cm) 22.5 WC - Nurse 2 - General Ulcer CM Notes Start: 03/03/19 09:40 Freq: Status: Active Protocol: Activity Type Activity Date Activity User E-Sign Co-Sign Detail Recorded Client Recorded Date Recorded By Document 03/10/19 12:16 MW [id number] 03/10/19 12:20 MW 03/10/19 12:16 Wound Center Nurse 2 [Procedure/Treatment] #9- LT NAVAS CLUSTER -Time 12:19 -Correct Patient Yes -Correct Side, Site, Position Yes -Correct Procedure Yes -Procedure Performed Yes -Type of Procedure Debridement -Clinical Debridement Subcutaneous -Post Debridement Size (cm) - Length 0.4 -Post Debridement Size (cm) - Width 1.0 -Post Debridement Size (cm) - Depth 0.1 -Total Square Cm 0.40 -Wound/Ulcer Outcome Not Healed -Ulcer Cleansing Rinsed/ Irrigated with Saline -Foul Odor after Cleansing No -Bioengineered Tissue No -Bleeding Controlled with Pressure -Offloading No -Treatment Response Procedure Tolerated Well #8- LT LATERAL LE CLUSTER -Time 12:19 -Correct Patient Yes -Correct Side, Site, Position Yes -Correct Procedure Yes -Procedure Performed Yes -Type of Procedure Debridement -Clinical Debridement Subcutaneous -Post Debridement Size (cm) - Length 0.6 -Post Debridement Size (cm) - Width 0.5 -Post Debridement Size (cm) - Depth 0.1 -Total Square Cm 0.30 -Wound/Ulcer Outcome Not Healed -Ulcer Cleansing Rinsed/ Irrigated with Saline -Foul Odor after Cleansing No -Bioengineered Tissue No -Bleeding Controlled with Pressure -Offloading No -Treatment Response Procedure Tolerated Well #7- LT CALF CLUSTER -Time 12:19 -Correct Patient Yes -Correct Side, Site, Position Yes -Correct Procedure Yes -Procedure Performed Yes -Type of Procedure Debridement -Clinical Debridement Subcutaneous -Post Debridement Size (cm) - Length 4.5 -Post Debridement Size (cm) - Width 5.5 -Post Debridement Size (cm) - Depth 0.1 -Total Square Cm 24.75 -Wound/Ulcer Outcome Not Healed -Ulcer Cleansing Rinsed/ Irrigated with Saline -Foul Odor after Cleansing No -Bioengineered Tissue No -Bleeding Controlled with Pressure -Offloading No -Treatment Response Procedure Tolerated Well [See Physician Procedure note for Specifics] Pain Scale: 0-10 Numeric [Pain] -Is Patient Pain Free? Yes Musculoskeletal: No Muscle Wasting Neurological: Cranial nerves II-XII grossly intact Psych/Mental Status: Normal Affect Debridement Note Post-Debridement Measurements/Treatment WC - Nurse 2 - General Ulcer CM Notes Start: 03/03/19 09:40 Freq: Status: Active Protocol: Activity Type Activity Date Activity User E-Sign Co-Sign Detail Recorded Client Recorded Date Recorded By Document 03/03/19 10:27 MW [id number] 03/03/19 10:37 MW Document 03/10/19 12:16 MW [id number] 03/10/19 12:20 MW 03/03/19 03/10/19 10:27 12:16 Wound Center Nurse 2 #9- LT NAVAS CLUSTER -Time 10:35 12:19 -Correct Patient Yes Yes -Correct Side, Site, Position Yes Yes -Correct Procedure Yes Yes -Procedure Performed Yes Yes -Type of Procedure Debridement Debridement -Clinical Debridement Subcutaneous Subcutaneous -Post Debridement Size (cm) - Length 0.7 0.4 -Post Debridement Size (cm) - Width 0.7 1.0 -Post Debridement Size (cm) - Depth 0.1 0.1 -Total Square Cm 0.49 0.40 -Wound/Ulcer Outcome Not Healed Not Healed -Ulcer Cleansing Rinsed/ Rinsed/ Irrigated with Irrigated with Saline Saline -Foul Odor after Cleansing No No -Bioengineered Tissue No No -Bleeding Controlled with Pressure Pressure -Offloading No No -Treatment Response Procedure Procedure Tolerated Well Tolerated Well #8- LT LATERAL LE CLUSTER -Time 10:35 12:19 -Correct Patient Yes Yes -Correct Side, Site, Position Yes Yes -Correct Procedure Yes Yes -Procedure Performed Yes Yes -Type of Procedure Debridement Debridement -Clinical Debridement Subcutaneous Subcutaneous -Post Debridement Size (cm) - Length 1.5 0.6 -Post Debridement Size (cm) - Width 1.0 0.5 -Post Debridement Size (cm) - Depth 0.1 0.1 -Total Square Cm 1.50 0.30 -Wound/Ulcer Outcome Not Healed Not Healed -Ulcer Cleansing Rinsed/ Rinsed/ Irrigated with Irrigated with Saline Saline -Foul Odor after Cleansing No No -Bioengineered Tissue No No -Bleeding Controlled with Pressure Pressure -Offloading No No -Treatment Response Procedure Procedure Tolerated Well Tolerated Well #7- LT CALF CLUSTER -Time 10:35 12:19 -Correct Patient Yes Yes -Correct Side, Site, Position Yes Yes -Correct Procedure Yes Yes -Procedure Performed Yes Yes -Type of Procedure Debridement Debridement -Clinical Debridement Subcutaneous Subcutaneous -Post Debridement Size (cm) - Length 6.0 4.5 -Post Debridement Size (cm) - Width 6.0 5.5 -Post Debridement Size (cm) - Depth 0.2 0.1 -Total Square Cm 36.00 24.75 -Wound/Ulcer Outcome Not Healed Not Healed -Ulcer Cleansing Rinsed/ Rinsed/ Irrigated with Irrigated with Saline Saline -Foul Odor after Cleansing No No -Bioengineered Tissue No No -Bleeding Controlled with Pressure Pressure -Offloading No No -Treatment Response Procedure Procedure Tolerated Well Tolerated Well Pain Scale: 0-10 Numeric Is Patient Pain Free? Yes Yes Wound debrided: Left lower extremity posterior Wound Grade/Stage: Stage II Type of Debridement: Excisional debridement Anesthesia Used: 4% Lidocaine Solution Depth: Down to and including healthy tissue, in the subcutaneous layer Percentage of wound debrided: 100 Instrument Used: 5mm curette Tissue Removed: slough and devitalized tissue Severity: Fat Layer Exposed Amount of bleeding with debridement: Mild Bleeding Controlled with: Pressure Patient tolerated procedure well - Additional Wound Wound debrided: Left navas Wound Grade/Stage: Stage II Type of Debridement: Excisional debridement Anesthesia Used: 4% Lidocaine Solution Depth: Down to and including healthy tissue, in the subcutaneous layer Percentage of wound debrided: 100 Instrument Used: 3mm curette Tissue Removed: Slough and devitalized tissue Severity: Fat Layer Exposed Amount of bleeding with debridement: Mild Bleeding Controlled with: Pressure Patient tolerated procedure: Patient tolerated procedure well - Additional Wound Wound debrided: Left lateral cluster Wound Grade/Stage: Stage II Type of Debridement: Excisional debridement Anesthesia Used: 4% Lidocaine Solution Depth: Down to and including healthy tissue, in the subcutaneous layer Percentage of wound debrided: 100 Instrument Used: 3mm curette Tissue Removed: Slough and devitalized tissue Severity: Fat Layer Exposed Amount of bleeding with debridement: Mild Bleeding Controlled with: Pressure Patient tolerated procedure: Patient tolerated procedure well Assessment/Plan Active Problems (Last Reviewed 02/28/19 @ 15:45 by Little Waterman) Ulcer of left lower extremity with fat layer exposed (Chronic) mixed venous arterial left posterior calf Lymphedema (Chronic) PVD (peripheral vascular disease) (Chronic) DM2 (diabetes mellitus, type 2) (Chronic) Assessment: Nonhealing recurrent left lower extremity ulceration secondary to lymphedema and peripheral arterial disease. Diabetes mellitus. Plan: Improving. No new concerns at this time. Debridement done as documented above. Procedure was well-tolerated. No significant tenderness today. Continue Fibracol with Adaptic over top to all ulcers. Change daily. Single layer Tubigrip for edema management. Due to chronicity and no significant improvement with traditional wound care, I believe she will benefit from an advanced wound care product such as epi-fix. Patient is willing to go forward with this. Optimal blood sugar control and increased protein intake recommended. She was advised to elevate lower extremities when seated and in bed. All her questions were answered and she was advised to call with any further questions or concerns. This note was generated with [employer] software. It may contain incorrect words, spelling, and punctuation that were not noted in checking the note before signing.
[2019-03-17 11:32] VITALS: BP 182/81; PULSE 63; RESP 16; TEMP 36.3; BMI 38.4
--- NOTE | 2019-03-17 13:29 | PCM.WC.PN ---
(1) Ulcer of left lower extremity with fat layer exposed Status: Chronic Current Visit: Yes Code(s): L97.922 - Non-pressure chronic ulcer of unspecified part of left lower leg with fat layer exposed Comment: mixed venous arterial left posterior calf (2) DM2 (diabetes mellitus, type 2) Status: Chronic Current Visit: Yes Code(s): E11.9 - Type 2 diabetes mellitus without complications (3) Lymphedema Status: Chronic Current Visit: Yes Code(s): I89.0 - Lymphedema, not elsewhere classified (4) PVD (peripheral vascular disease) Status: Chronic Current Visit: Yes Code(s): I73.9 - Peripheral vascular disease, unspecified (5) 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 Last seen here at the wound center in March however patient states that she had a recurrence of the ulcer several months ago. She has been doing a wet-to-dry dressing at home with no significant improvement. She is scheduled to have bladder repair however surgery is on hold until she has total healing of the ulcer. She denies chills, fever or otherwise feeling of unwell. History of lymphedema however does not utilize compression stockings due to poor tolerance. She also has a history of diabetes mellitus which she states is very well controlled. Progress of Wound: Left navas cluster is healed however she reports worsening pain and redness over the left posterior cluster. - Physical Exam Vital Signs Temp Pulse Resp BP 97.3 F L 63 16 182/81 H 03/17/19 11:32 03/17/19 11:32 03/17/19 11:32 03/17/19 11:32 General: Alert, Oriented x3, Cooperative, No apparent distress HEENT: Atraumatic, Normocephalic Oral: Moist Mucosa Neck: Supple Lungs: Normal air movement Extremities: No cyanosis, Edema Skin: Ulcer/ Wound Wound Measurements and Assessment WC - Nurse 1 - General Ulcer Measurement Start: 03/03/19 09:40 Freq: Status: Active Protocol: Activity Type Activity Date Activity User E-Sign Co-Sign Detail Recorded Client Recorded Date Recorded By Document 03/17/19 11:32 [facility] [id number] 03/17/19 11:45 [facility] 03/17/19 11:32 Wound Center Nurse 1 [Ulcer Assessment] #9- LT NAVAS CLUSTER -Combined with other wound No -Current Size (cm) - Length 0.1 -Current Size (cm) - Width 0.1 -Current Size (cm) - Depth 0.1 -Total Square Cm 0.01 -Epithelialization Large 67-100% -Tunneling No -Undermining/Tunneling No -Circular Undermining No #8- LT LATERAL LE CLUSTER -Combined with other wound No -Current Size (cm) - Length 0.9 -Current Size (cm) - Width 0.4 -Current Size (cm) - Depth 0.1 -Total Square Cm 0.36 -Photo Taken No -Epithelialization Small 1-33% -Tunneling No -Undermining/Tunneling No -Circular Undermining No -Exudate Amt Small -Exudate Type Serosanguineous -Wound Margin Flat & Intact -Granulation Amt Large (67-100%) -Granulation Quality Red -Slough/Fibrin Yes -Necrosis Amt Small (1-33%) -Necrotic Tissue Type Adherent Slough -Texture (Cassi-wound Skin Appearance) Assessed Scarring -Moisture (Cassi-wound Skin Appearance Assessed ) Dry/Scaly -Color (Cassi-wound Skin Appearance) Assessed -Temperature (Cassi-wound Skin No Abnormality Appearance) (Pt Warm) -Tenderness on Palpation (Cassi-wound No Skin Appearance) -Ulcer Cleansing Rinsed/ Irrigated with Saline -Foul Odor after Cleansing No -Anesthetic Used 4% Lidocaine Solution #7- LT CALF CLUSTER -Combined with other wound No -Current Size (cm) - Length 5 -Current Size (cm) - Width 5.5 -Current Size (cm) - Depth 0.2 -Total Square Cm 27.5 -Photo Taken No -Epithelialization None Present -Tunneling No -Undermining/Tunneling No -Circular Undermining No -Classification - Thickness Full Thickness without Exposed Support Structure -Exudate Amt Small -Exudate Type Serosanguineous -Wound Margin Thickened -Granulation Amt Medium (34-66%) -Granulation Quality Pale Red -Slough/Fibrin Yes -Necrosis Amt Medium (34-66%) -Necrotic Tissue Type Adherent Slough -Texture (Cassi-wound Skin Appearance) Assessed Scarring -Moisture (Cassi-wound Skin Appearance Assessed ) Dry/Scaly -Color (Cassi-wound Skin Appearance) Assessed -Temperature (Cassi-wound Skin No Abnormality Appearance) (Pt Warm) -Tenderness on Palpation (Cassi-wound No Skin Appearance) -Ulcer Cleansing Rinsed/ Irrigated with Saline -Foul Odor after Cleansing No -Anesthetic Used 4% Lidocaine Solution [Edema Assessment] -Lower Limb Edema Present Yes -Left Calf (cm) 41 -Left Ankle (cm) 22.5 WC - Nurse 2 - General Ulcer CM Notes Start: 03/03/19 09:40 Freq: Status: Active Protocol: Activity Type Activity Date Activity User E-Sign Co-Sign Detail Recorded Client Recorded Date Recorded By Document 03/17/19 12:39 MW [id number] 03/17/19 12:46 MW 03/17/19 12:39 Wound Center Nurse 2 [Procedure/Treatment] #9- LT NAVAS CLUSTER -Time 12:40 -Correct Patient Yes -Correct Side, Site, Position Yes -Correct Procedure Yes -Procedure Performed No -Post Debridement Size (cm) - Length 0 -Post Debridement Size (cm) - Width 0 -Post Debridement Size (cm) - Depth 0 -Total Square Cm 0 -Wound/Ulcer Outcome Healed- Epithelialized -Bleeding Controlled with Pressure -Offloading No -Treatment Response Procedure Tolerated Well #8- LT LATERAL LE CLUSTER -Time 12:40 -Correct Patient Yes -Correct Side, Site, Position Yes -Correct Procedure Yes -Procedure Performed Yes -Type of Procedure Debridement -Clinical Debridement Subcutaneous -Post Debridement Size (cm) - Length 0.6 -Post Debridement Size (cm) - Width 0.4 -Post Debridement Size (cm) - Depth 0.1 -Total Square Cm 0.24 -Wound/Ulcer Outcome Not Healed -Ulcer Cleansing Rinsed/ Irrigated with Saline -Foul Odor after Cleansing No -Bleeding Controlled with Pressure -Offloading No -Treatment Response Procedure Tolerated Well #7- LT CALF CLUSTER -Time 12:41 -Correct Patient Yes -Correct Side, Site, Position Yes -Correct Procedure Yes -Procedure Performed Yes -Type of Procedure Debridement -Clinical Debridement Subcutaneous -Post Debridement Size (cm) - Length 6.0 -Post Debridement Size (cm) - Width 7.5 -Post Debridement Size (cm) - Depth 0.1 -Total Square Cm 45.00 -Wound/Ulcer Outcome Not Healed -Ulcer Cleansing Rinsed/ Irrigated with Saline -Foul Odor after Cleansing No -Bioengineered Tissue No -Bleeding Controlled with Pressure -Offloading No -Treatment Response Procedure Tolerated Well [See Physician Procedure note for Specifics] Pain Scale: 0-10 Numeric [Pain] -Is Patient Pain Free? Yes Musculoskeletal: No Muscle Wasting Neurological: Cranial nerves II-XII grossly intact Psych/Mental Status: Normal Affect Debridement Note Post-Debridement Measurements/Treatment WC - Nurse 2 - General Ulcer CM Notes Start: 03/03/19 09:40 Freq: Status: Active Protocol: Activity Type Activity Date Activity User E-Sign Co-Sign Detail Recorded Client Recorded Date Recorded By Document 03/03/19 10:27 MW [id number] 03/03/19 10:37 MW Document 03/10/19 12:16 MW [id number] 03/10/19 12:20 MW Document 03/17/19 12:39 MW [id number] 03/17/19 12:46 MW 03/03/19 03/10/19 03/17/19 10:27 12:16 12:39 Wound Center Nurse 2 #9- LT NAVAS CLUSTER -Time 10:35 12:19 12:40 -Correct Patient Yes Yes Yes -Correct Side, Site, Position Yes Yes Yes -Correct Procedure Yes Yes Yes -Procedure Performed Yes Yes No -Type of Procedure Debridement Debridement -Clinical Debridement Subcutaneous Subcutaneous -Post Debridement Size (cm) - Length 0.7 0.4 0 -Post Debridement Size (cm) - Width 0.7 1.0 0 -Post Debridement Size (cm) - Depth 0.1 0.1 0 -Total Square Cm 0.49 0.40 0 -Wound/Ulcer Outcome Not Healed Not Healed Healed- Epithelialized -Ulcer Cleansing Rinsed/ Rinsed/ Irrigated with Irrigated with Saline Saline -Foul Odor after Cleansing No No -Bioengineered Tissue No No -Bleeding Controlled with Pressure Pressure Pressure -Offloading No No No -Treatment Response Procedure Procedure Procedure Tolerated Well Tolerated Well Tolerated Well #8- LT LATERAL LE CLUSTER -Time 10:35 12:19 12:40 -Correct Patient Yes Yes Yes -Correct Side, Site, Position Yes Yes Yes -Correct Procedure Yes Yes Yes -Procedure Performed Yes Yes Yes -Type of Procedure Debridement Debridement Debridement -Clinical Debridement Subcutaneous Subcutaneous Subcutaneous -Post Debridement Size (cm) - Length 1.5 0.6 0.6 -Post Debridement Size (cm) - Width 1.0 0.5 0.4 -Post Debridement Size (cm) - Depth 0.1 0.1 0.1 -Total Square Cm 1.50 0.30 0.24 -Wound/Ulcer Outcome Not Healed Not Healed Not Healed -Ulcer Cleansing Rinsed/ Rinsed/ Rinsed/ Irrigated with Irrigated with Irrigated with Saline Saline Saline -Foul Odor after Cleansing No No No -Bioengineered Tissue No No -Bleeding Controlled with Pressure Pressure Pressure -Offloading No No No -Treatment Response Procedure Procedure Procedure Tolerated Well Tolerated Well Tolerated Well #7- LT CALF CLUSTER -Time 10:35 12:19 12:41 -Correct Patient Yes Yes Yes -Correct Side, Site, Position Yes Yes Yes -Correct Procedure Yes Yes Yes -Procedure Performed Yes Yes Yes -Type of Procedure Debridement Debridement Debridement -Clinical Debridement Subcutaneous Subcutaneous Subcutaneous -Post Debridement Size (cm) - Length 6.0 4.5 6.0 -Post Debridement Size (cm) - Width 6.0 5.5 7.5 -Post Debridement Size (cm) - Depth 0.2 0.1 0.1 -Total Square Cm 36.00 24.75 45.00 -Wound/Ulcer Outcome Not Healed Not Healed Not Healed -Ulcer Cleansing Rinsed/ Rinsed/ Rinsed/ Irrigated with Irrigated with Irrigated with Saline Saline Saline -Foul Odor after Cleansing No No No -Bioengineered Tissue No No No -Bleeding Controlled with Pressure Pressure Pressure -Offloading No No No -Treatment Response Procedure Procedure Procedure Tolerated Well Tolerated Well Tolerated Well Pain Scale: 0-10 Numeric Is Patient Pain Free? Yes Yes Yes Wound debrided: Left posterior cluster Wound Grade/Stage: Stage II Type of Debridement: Excisional debridement Anesthesia Used: 4% Lidocaine Solution Depth: Down to and including healthy tissue, in the subcutaneous layer Percentage of wound debrided: 100 Instrument Used: 5mm curette Tissue Removed: Slough and devitalized tissue Severity: Fat Layer Exposed Amount of bleeding with debridement: Mild Bleeding Controlled with: Pressure Patient tolerated procedure well - Additional Wound Wound debrided: Left lateral cluster Wound Grade/Stage: Stage II Type of Debridement: Excisional debridement Anesthesia Used: 4% Lidocaine Solution Depth: Down to and including healthy tissue, in the subcutaneous layer Percentage of wound debrided: 100 Instrument Used: 3mm curette Tissue Removed: Slough and devitalized tissue Severity: Fat Layer Exposed Amount of bleeding with debridement: Mild Bleeding Controlled with: Pressure Patient tolerated procedure: Patient tolerated procedure well Assessment/Plan Active Problems (Last Reviewed 02/28/19 @ 15:45 by [place]) Ulcer of left lower extremity with fat layer exposed (Chronic) mixed venous arterial left posterior calf Lymphedema (Chronic) PVD (peripheral vascular disease) (Chronic) DM2 (diabetes mellitus, type 2) (Chronic) Assessment: Nonhealing recurrent left lower extremity ulceration secondary to lymphedema and peripheral arterial disease. Diabetes mellitus. Plan: Debridement done as documented above. Procedure was well-barrie tolerated. Posterior ulcer is more tender today with increased erythema. Switch to Jackie with Adaptic over top. Change daily. Also started on Augmentin and doxycycline per culture and sensitivity. Single layer Tubigrip for edema management. Due to chronicity and no significant improvement with traditional wound care, I believe she will benefit from an advanced wound care product such as epi-fix. Patient is willing to go forward with this. Awaiting insurance approval. Optimal blood sugar control and increased protein intake recommended. She was advised to elevate lower extremities when seated and in bed. All her questions were answered and she was advised to call with any further questions or concerns. This note was generated with [employer] dictation software. It may contain incorrect words, spelling, and punctuation that were not noted in checking the note before signing.
--- NOTE | 2019-03-17 13:33 | PN.PCM_ITS ---
(1) Ulcer of left lower extremity with fat layer exposed Status: Chronic Current Visit: Yes Code(s): L97.922 - Non-pressure chronic ulcer of unspecified part of left lower leg with fat layer exposed Comment: mixed venous arterial left posterior calf (2) DM2 (diabetes mellitus, type 2) Status: Chronic Current Visit: Yes Code(s): E11.9 - Type 2 diabetes mellitus without complications (3) Lymphedema Status: Chronic Current Visit: Yes Code(s): I89.0 - Lymphedema, not elsewher e classified (4) PVD (peripheral vascular disease) Status: Chronic Current Visit: Yes Code(s): I73.9 - Peripheral vascular disease, unspecified (5) 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 Last seen here at the wound center in March however patient states that she had a recurrence of the ulcer several months ago. She has been doing a wet-to-dry dressing at home with no significant improvement. She is scheduled to have bladder repair however surgery is on hold until she has total healing of the ulcer. She denies chills, fever or otherwise feeling of unwell. History of lymphedema however does not utilize compression stockings due to poor tolerance. She also has a history of diabetes mellitus which she states is very well controlled. Progress of Wound: Left navas cluster is healed however she reports worsening pain and redness over the left posterior cluster. - Physical Exam Vital Signs Temp Pulse Resp BP 97.3 F L 63 16 182/81 H 03/17/19 11:32 03/17/19 11:32 03/17/19 11:32 03/17/19 11:32 General: Alert, Oriented x3, Cooperative, No apparent distress HEENT: Atraumatic, Normocephalic Oral: Moist Mucosa Neck: Supple Lungs: Normal air movement Extremities: No cyanosis, Edema Skin: Ulcer/ Wound Wound Measurements and Assessment WC - Nurse 1 - General Ulcer Measurement Start: 03/03/19 09:40 Freq: Status: Active Protocol: Activity Type Activity Date Activity User E-Sign Co-Sign Detail Recorded Client Recorded Date Recorded By Document 03/17/19 11:32 [facility] [id number] 03/17/19 11:45 [facility] 03/17/19 11:32 Wound Center Nurse 1 [Ulcer Assessment] #9- LT NAVAS CLUSTER -Combined with other wound No -Current Size (cm) - Length 0.1 -Current Size (cm) - Width 0.1 -Current Size (cm) - Depth 0.1 -Total Square Cm 0.01 -Epithelialization Large 67-100% -Tunneling No -Undermining/Tunneling No -Circular Undermining No #8- LT LATERAL LE CLUSTER -Combined with other wound No -Current Size (cm) - Length 0.9 -Current Size (cm) - Width 0.4 -Current Size (cm) - Depth 0.1 -Total Square Cm 0.36 -Photo Taken No -Epithelialization Small 1-33% -Tunneling No -Undermining/Tunneling No -Circular Undermining No -Exudate Amt Small -Exudate Type Serosanguineous -Wound Margin Flat & Intact -Granulation Amt Large (67-100%) -Granulation Quality Red -Slough/Fibrin Yes -Necrosis Amt Small (1-33%) -Necrotic Tissue Type Adherent Slough -Texture (Cassi-wound Skin Appearance) Assessed Scarring -Moisture (Cassi-wound Skin Appearance Assessed ) Dry/Scaly -Color (Cassi-wound Skin Appearance) Assessed -Temperature (Cassi-wound Skin No Abnormality Appearance) (Pt Warm) -Tenderness on Palpation (Cassi-wound No Skin Appearance) -Ulcer Cleansing Rinsed/ Irrigated with Saline -Foul Odor after Cleansing No -Anesthetic Used 4% Lidocaine Solution #7- LT CALF CLUSTER -Combined with other wound No -Current Size (cm) - Length 5 -Current Size (cm) - Width 5.5 -Current Size (cm) - Depth 0.2 -Total Square Cm 27.5 -Photo Taken No -Epithelialization None Present -Tunneling No -Undermining/Tunneling No -Circular Undermining No -Classification - Thickness Full Thickness without Exposed Support Structure -Exudate Amt Small -Exudate Type Serosanguineous -Wound Margin Thickened -Granulation Amt Medium (34-66%) -Granulation Quality Pale Red -Slough/Fibrin Yes -Necrosis Amt Medium (34-66%) -Necrotic Tissue Type Adherent Slough -Texture (Cassi-wound Skin Appearance) Assessed Scarring -Moisture (Cassi-wound Skin Appearance Assessed ) Dry/Scaly -Color (Cassi-wound Skin Appearance) Assessed -Temperature (Cassi-wound Skin No Abnormality Appearance) (Pt Warm) -Tenderness on Palpation (Cassi-wound No Skin Appearance) -Ulcer Cleansing Rinsed/ Irrigated with Saline -Foul Odor after Cleansing No -Anesthetic Used 4% Lidocaine Solution [Edema Assessment] -Lower Limb Edema Present Yes -Left Calf (cm) 41 -Left Ankle (cm) 22.5 WC - Nurse 2 - General Ulcer CM Notes Start: 03/03/19 09:40 Freq: Status: Active Protocol: Activity Type Activity Date Activity User E-Sign Co-Sign Detail Recorded Client Recorded Date Recorded By Document 03/17/19 12:39 MW [id number] 03/17/19 12:46 MW 03/17/19 12:39 Wound Center Nurse 2 [Procedure/Treatment] #9- LT NAVAS CLUSTER -Time 12:40 -Correct Patient Yes -Correct Side, Site, Position Yes -Correct Procedure Yes -Procedure Performed No -Post Debridement Size (cm) - Length 0 -Post Debridement Size (cm) - Width 0 -Post Debridement Size (cm) - Depth 0 -Total Square Cm 0 -Wound/Ulcer Outcome Healed- Epithelialized -Bleeding Controlled with Pressure -Offloading No -Treatment Response Procedure Tolerated Well #8- LT LATERAL LE CLUSTER -Time 12:40 -Correct Patient Yes -Correct Side, Site, Position Yes -Correct Procedure Yes -Procedure Performed Yes -Type of Procedure Debridement -Clinical Debridement Subcutaneous -Post Debridement Size (cm) - Length 0.6 -Post Debridement Size (cm) - Width 0.4 -Post Debridement Size (cm) - Depth 0.1 -Total Square Cm 0.24 -Wound/Ulcer Outcome Not Healed -Ulcer Cleansing Rinsed/ Irrigated with Saline -Foul Odor after Cleansing No -Bleeding Controlled with Pressure -Offloading No -Treatment Response Procedure Tolerated Well #7- LT CALF CLUSTER -Time 12:41 -Correct Patient Yes -Correct Side, Site, Position Yes -Correct Procedure Yes -Procedure Performed Yes -Type of Procedure Debridement -Clinical Debridement Subcutaneous -Post Debridement Size (cm) - Length 6.0 -Post Debridement Size (cm) - Width 7.5 -Post Debridement Size (cm) - Depth 0.1 -Total Square Cm 45.00 -Wound/Ulcer Outcome Not Healed -Ulcer Cleansing Rinsed/ Irrigated with Saline -Foul Odor after Cleansing No -Bioengineered Tissue No -Bleeding Controlled with Pressure -Offloading No -Treatment Response Procedure Tolerated Well [See Physician Procedure note for Specifics] Pain Scale: 0-10 Numeric [Pain] -Is Patient Pain Free? Yes Musculoskeletal: No Muscle Wasting Neurological: Cranial nerves II-XII grossly intact Psych/Mental Status: Normal Affect Debridement Note Post-Debridement Measurements/Treatment WC - Nurse 2 - General Ulcer CM Notes Start: 03/03/19 09:40 Freq: Status: Active Protocol: Activity Type Activity Date Activity User E-Sign Co-Sign Detail Recorded Client Recorded Date Recorded By Document 03/03/19 10:27 MW [id number] 03/03/19 10:37 MW Document 03/10/19 12:16 MW [id number] 03/10/19 12:20 MW Document 03/17/19 12:39 MW [id number] 03/17/19 12:46 MW 03/03/19 03/10/19 03/17/19 10:27 12:16 12:39 Wound Center Nurse 2 #9- LT NAVAS CLUSTER -Time 10:35 12:19 12:40 -Correct Patient Yes Yes Yes -Correct Side, Site, Position Yes Yes Yes -Correct Procedure Yes Yes Yes -Procedure Performed Yes Yes No -Type of Procedure Debridement Debridement -Clinical Debridement Subcutaneous Subcutaneous -Post Debridement Size (cm) - Length 0.7 0.4 0 -Post Debridement Size (cm) - Width 0.7 1.0 0 -Post Debridement Size (cm) - Depth 0.1 0.1 0 -Total Square Cm 0.49 0.40 0 -Wound/Ulcer Outcome Not Healed Not Healed Healed- Epithelialized -Ulcer Cleansing Rinsed/ Rinsed/ Irrigated with Irrigated with Saline Saline -Foul Odor after Cleansing No No -Bioengineered Tissue No No -Bleeding Controlled with Pressure Pressure Pressure -Offloading No No No -Treatment Response Procedure Procedure Procedure Tolerated Well Tolerated Well Tolerated Well #8- LT LATERAL LE CLUSTER -Time 10:35 12:19 12:40 -Correct Patient Yes Yes Yes -Correct Side, Site, Position Yes Yes Yes -Correct Procedure Yes Yes Yes -Procedure Performed Yes Yes Yes -Type of Procedure Debridement Debridement Debridement -Clinical Debridement Subcutaneous Subcutaneous Subcutaneous -Post Debridement Size (cm) - Length 1.5 0.6 0.6 -Post Debridement Size (cm) - Width 1.0 0.5 0.4 -Post Debridement Size (cm) - Depth 0.1 0.1 0.1 -Total Square Cm 1.50 0.30 0.24 -Wound/Ulcer Outcome Not Healed Not Healed Not Healed -Ulcer Cleansing Rinsed/ Rinsed/ Rinsed/ Irrigated with Irrigated with Irrigated with Saline Saline Saline -Foul Odor after Cleansing No No No -Bioengineered Tissue No No -Bleeding Controlled with Pressure Pressure Pressure -Offloading No No No -Treatment Response Procedure Procedure Procedure Tolerated Well Tolerated Well Tolerated Well #7- LT CALF CLUSTER -Time 10:35 12:19 12:41 -Correct Patient Yes Yes Yes -Correct Side, Site, Position Yes Yes Yes -Correct Procedure Yes Yes Yes -Procedure Performed Yes Yes Yes -Type of Procedure Debridement Debridement Debridement -Clinical Debridement Subcutaneous Subcutaneous Subcutaneous -Post Debridement Size (cm) - Length 6.0 4.5 6.0 -Post Debridement Size (cm) - Width 6.0 5.5 7.5 -Post Debridement Size (cm) - Depth 0.2 0.1 0.1 -Total Square Cm 36.00 24.75 45.00 -Wound/Ulcer Outcome Not Healed Not Healed Not Healed -Ulcer Cleansing Rinsed/ Rinsed/ Rinsed/ Irrigated with Irrigated with Irrigated with Saline Saline Saline -Foul Odor after Cleansing No No No -Bioengineered Tissue No No No -Bleeding Controlled with Pressure Pressure Pressure -Offloading No No No -Treatment Response Procedure Procedure Procedure Tolerated Well Tolerated Well Tolerated Well Pain Scale: 0-10 Numeric Is Patient Pain Free? Yes Yes Yes Wound debrided: Left posterior cluster Wound Grade/Stage: Stage II Type of Debridement: Excisional debridement Anesthesia Used: 4% Lidocaine Solution Depth: Down to and including healthy tissue, in the subcutaneous layer Percentage of wound debrided: 100 Instrument Used: 5mm curette Tissue Removed: Slough and devitalized tissue Severity: Fat Layer Exposed Amount of bleeding with debridement: Mild Bleeding Controlled with: Pressure Patient tolerated procedure well - Additional Wound Wound debrided: Left lateral cluster Wound Grade/Stage: Stage II Type of Debridement: Excisional debridement Anesthesia Used: 4% Lidocaine Solution Depth: Down to and including healthy tissue, in the subcutaneous layer Percentage of wound debrided: 100 Instrument Used: 3mm curette Tissue Removed: Slough and devitalized tissue Severity: Fat Layer Exposed Amount of bleeding with debridement: Mild Bleeding Controlled with: Pressure Patient tolerated procedure: Patient tolerated procedure well Assessment/Plan Active Problems (Last Reviewed 02/28/19 @ 15:45 by [place]) Ulcer of left lower extremity with fat layer exposed (Chronic) mixed venous arterial left posterior calf Lymphedema (Chronic) PVD (peripheral vascular disease) (Chronic) DM2 (diabetes mellitus, type 2) (Chronic) Assessment: Nonhealing recurrent left lower extremity ulceration secondary to lymphedema and peripheral arterial disease. Diabetes mellitus. Plan: Debridement done as documented above. Procedure was well-barrie tolerated. Posterior ulcer is more tender today with increased erythema. Switch to Jackie with Adaptic over top. Change daily. Also started on Augmentin and doxycycline per culture and sensitivity. Single layer Tubigrip for edema management. Due to chronicity and no significant improvement with traditional wound care, I believe she will benefit from an advanced wound care product such as epi-fix. Patient is willing to go forward with this. Awaiting insurance approval. Optimal blood sugar control and increased protein intake recommended. She was advised to elevate lower extremities when seated and in bed. All her questions were answered and she was advised to call with any further questions or concerns. This note was generated with [facility] dictation software. It may contain incorrect words, spelling, and punctuation that were not noted in checking the note before signing.
[2019-03-24 10:47] VITALS: BP 155/79; PULSE 62; RESP 18; TEMP 36.4; BMI 38.4
--- NOTE | 2019-03-24 11:28 | PCM.WC.PN ---
(1) Ulcer of left lower extremity with fat layer exposed Status: Chronic Current Visit: Yes Code(s): L97.922 - Non-pressure chronic ulcer of unspecified part of left lower leg with fat layer exposed Comment: mixed venous arterial left posterior calf (2) DM2 (diabetes mellitus, type 2) Status: Chronic Current Visit: Yes Code(s): E11.9 - Type 2 diabetes mellitus without complications (3) Lymphedema Status: Chronic Current Visit: Yes Code(s): I89.0 - Lymphedema, not elsewhere classified (4) PVD (peripheral vascular disease) Status: Chronic Current Visit: Yes Code(s): I73.9 - Peripheral vascular disease, unspecified (5) 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 Last seen here at the wound center in March however patient states that she had a recurrence of the ulcer several months ago. She has been doing a wet-to-dry dressing at home with no significant improvement. She is scheduled to have bladder repair however surgery is on hold until she has total healing of the ulcer. She denies chills, fever or otherwise feeling of unwell. History of lymphedema however does not utilize compression stockings due to poor tolerance. She also has a history of diabetes mellitus which she states is very well controlled. Progress of Wound: Stable. No new concerns. Pain has improved. - Physical Exam Vital Signs Temp Pulse Resp BP 97.6 F L 62 18 155/79 H 03/24/19 10:47 03/24/19 10:47 03/24/19 10:47 03/24/19 10:47 General: Alert, Oriented x3, Cooperative, No apparent distress HEENT: Atraumatic, Normocephalic Oral: Moist Mucosa Neck: Supple Lungs: Normal air movement Extremities: No cyanosis, Edema Skin: Ulcer/ Wound Wound Measurements and Assessment WC - Nurse 1 - General Ulcer Measurement Start: 03/03/19 09:40 Freq: Status: Active Protocol: Activity Type Activity Date Activity User E-Sign Co-Sign Detail Recorded Client Recorded Date Recorded By Document 03/24/19 10:47 DL [id number] 03/24/19 10:56 DL 03/24/19 10:47 Wound Center Nurse 1 [Ulcer Assessment] #8- LT LATERAL LE CLUSTER -Current Size (cm) - Length 4 -Current Size (cm) - Width 0.4 -Current Size (cm) - Depth 0.1 -Total Square Cm 1.6 -Photo Taken No -Exudate Amt None Present -Wound Margin Flat & Intact -Granulation Amt Large (67-100%) -Granulation Quality [place] -Necrosis Amt Small (1-33%) -Necrotic Tissue Type Adherent Slough -Structure Exposed N/A -Texture (Cassi-wound Skin Appearance) Scarring -Moisture (Cassi-wound Skin Appearance No Abnormality ) -Color (Cassi-wound Skin Appearance) No Abnormality Hemosiderin Staining -Temperature (Cassi-wound Skin No Abnormality Appearance) (Pt Warm) -Tenderness on Palpation (Cassi-wound No Skin Appearance) -Ulcer Cleansing Rinsed/ Irrigated with Saline -Foul Odor after Cleansing No -Anesthetic Used 4% Lidocaine Solution #7- LT CALF CLUSTER -Current Size (cm) - Length 4.8 -Current Size (cm) - Width 3.8 -Current Size (cm) - Depth 0.1 -Total Square Cm 18.24 -Photo Taken No -Exudate Amt Small -Exudate Type Serosanguineous -Wound Margin Distinct, Outline Attached -Granulation Amt Large (67-100%) -Granulation Quality [place] Red -Necrosis Amt Small (1-33%) -Necrotic Tissue Type Adherent Slough -Structure Exposed N/A -Texture (Cassi-wound Skin Appearance) Scarring -Moisture (Cassi-wound Skin Appearance No Abnormality ) -Color (Cassi-wound Skin Appearance) No Abnormality -Temperature (Cassi-wound Skin No Abnormality Appearance) (Pt Warm) -Tenderness on Palpation (Cassi-wound No Skin Appearance) -Ulcer Cleansing Wound Cleanser -Foul Odor after Cleansing No -Anesthetic Used 4% Lidocaine Solution [Edema Assessment] -Left Calf (cm) 39.5 -Left Ankle (cm) 22.5 WC - Nurse 2 - General Ulcer CM Notes Start: 03/03/19 09:40 Freq: Status: Active Protocol: Activity Type Activity Date Activity User E-Sign Co-Sign Detail Recorded Client Recorded Date Recorded By Document 03/24/19 11:07 MW [id number] 03/24/19 11:12 MW 03/24/19 11:07 Wound Center Nurse 2 [Procedure/Treatment] #8- LT LATERAL LE CLUSTER -Time 11:10 -Correct Patient Yes -Correct Side, Site, Position Yes -Correct Procedure Yes -Procedure Performed Yes -Type of Procedure Debridement -Clinical Debridement Subcutaneous -Post Debridement Size (cm) - Length 0.6 -Post Debridement Size (cm) - Width 0.3 -Post Debridement Size (cm) - Depth 0.1 -Total Square Cm 0.18 -Wound/Ulcer Outcome Not Healed -Ulcer Cleansing Rinsed/ Irrigated with Saline -Foul Odor after Cleansing No -Bioengineered Tissue No -Type of bioengineered Tissue EPIFIX -Bleeding Controlled with Pressure -Offloading No -Treatment Response Procedure Tolerated Well #7- LT CALF CLUSTER -Time 11:10 -Correct Patient Yes -Correct Side, Site, Position Yes -Correct Procedure Yes -Procedure Performed Yes -Type of Procedure Debridement -Clinical Debridement Subcutaneous -Post Debridement Size (cm) - Length 7.5 -Post Debridement Size (cm) - Width 5.5 -Post Debridement Size (cm) - Depth 0.1 -Total Square Cm 41.25 -Wound/Ulcer Outcome Not Healed -Ulcer Cleansing Rinsed/ Irrigated with Saline -Foul Odor after Cleansing No -Bioengineered Tissue No -Bleeding Controlled with Pressure -Offloading No -Treatment Response Procedure Tolerated Well [See Physician Procedure note for Specifics] Pain Scale: 0-10 Numeric [Pain] -Is Patient Pain Free? Yes Musculoskeletal: No Muscle Wasting Neurological: Cranial nerves II-XII grossly intact Psych/Mental Status: Normal Affect Debridement Note Post-Debridement Measurements/Treatment WC - Nurse 2 - General Ulcer CM Notes Start: 03/03/19 09:40 Freq: Status: Active Protocol: Activity Type Activity Date Activity User E-Sign Co-Sign Detail Recorded Client Recorded Date Recorded By Document 03/03/19 10:27 MW [id number] 03/03/19 10:37 MW Document 03/10/19 12:16 MW [id number] 03/10/19 12:20 MW Document 03/17/19 12:39 MW [id number] 03/17/19 12:46 MW Document 03/24/19 11:07 MW [id number] 03/24/19 11:12 MW 03/03/19 03/10/19 03/17/19 10:27 12:16 12:39 Wound Center Nurse 2 #9- LT YARBROUGH CLUSTER -Time 12:19 12:40 -Correct Patient Yes Yes Yes -Correct Side, Site, Position Yes Yes Yes -Correct Procedure Yes Yes Yes -Procedure Performed Yes Yes No -Type of Procedure Debridement Debridement -Clinical Debridement Subcutaneous Subcutaneous -Post Debridement Size (cm) - Length 0.7 0.4 0 -Post Debridement Size (cm) - Width 0.7 1.0 0 -Post Debridement Size (cm) - Depth 0.1 0.1 0 -Total Square Cm 0.49 0.40 0 -Wound/Ulcer Outcome Not Healed Not Healed Healed- Epithelialized -Ulcer Cleansing Rinsed/ Rinsed/ Irrigated with Irrigated with Saline Saline -Foul Odor after Cleansing No No -Bioengineered Tissue No No -Bleeding Controlled with Pressure Pressure Pressure -Offloading No No No -Treatment Response Procedure Procedure Procedure Tolerated Well Tolerated Well Tolerated Well #8- LT LATERAL LE CLUSTER -Time 12: 12:40 -Correct Patient Yes Yes Yes -Correct Side, Site, Position Yes Yes Yes -Correct Procedure Yes Yes Yes -Procedure Performed Yes Yes Yes -Type of Procedure Debridement Debridement Debridement -Clinical Debridement Subcutaneous Subcutaneous Subcutaneous -Post Debridement Size (cm) - Length 1.5 0.6 0.6 -Post Debridement Size (cm) - Width 1.0 0.5 0.4 -Post Debridement Size (cm) - Depth 0.1 0.1 0.1 -Total Square Cm 1.50 0.30 0.24 -Wound/Ulcer Outcome Not Healed Not Healed Not Healed -Ulcer Cleansing Rinsed/ Rinsed/ Rinsed/ Irrigated with Irrigated with Irrigated with Saline Saline Saline -Foul Odor after Cleansing No No No -Bioengineered Tissue No No -Type of bioengineered Tissue -Bleeding Controlled with Pressure Pressure Pressure -Offloading No No No -Treatment Response Procedure Procedure Procedure Tolerated Well Tolerated Well Tolerated Well #7- LT CALF CLUSTER -Time 12:19 12:41 -Correct Patient Yes Yes Yes -Correct Side, Site, Position Yes Yes Yes -Correct Procedure Yes Yes Yes -Procedure Performed Yes Yes Yes -Type of Procedure Debridement Debridement Debridement -Clinical Debridement Subcutaneous Subcutaneous Subcutaneous -Post Debridement Size (cm) - Length 6.0 4.5 6.0 -Post Debridement Size (cm) - Width 6.0 5.5 7.5 -Post Debridement Size (cm) - Depth 0.2 0.1 0.1 -Total Square Cm 36.00 24.75 45.00 -Wound/Ulcer Outcome Not Healed Not Healed Not Healed -Ulcer Cleansing Rinsed/ Rinsed/ Rinsed/ Irrigated with Irrigated with Irrigated with Saline Saline Saline -Foul Odor after Cleansing No No No -Bioengineered Tissue No No No -Bleeding Controlled with Pressure Pressure Pressure -Offloading No No No -Treatment Response Procedure Procedure Procedure Tolerated Well Tolerated Well Tolerated Well Pain Scale: 0-10 Numeric Is Patient Pain Free? Yes Yes Yes 03/24/19 11:07 Wound Center Nurse 2 #9- LT YARBROUGH CLUSTER -Time -Correct Patient -Correct Side, Site, Position -Correct Procedure -Procedure Performed -Type of Procedure -Clinical Debridement -Post Debridement Size (cm) - Length -Post Debridement Size (cm) - Width -Post Debridement Size (cm) - Depth -Total Square Cm -Wound/Ulcer Outcome -Ulcer Cleansing -Foul Odor after Cleansing -Bioengineered Tissue -Bleeding Controlled with -Offloading -Treatment Response #8- LT LATERAL LE CLUSTER -Time 11:10 -Correct Patient Yes -Correct Side, Site, Position Yes -Correct Procedure Yes -Procedure Performed Yes -Type of Procedure Debridement -Clinical Debridement Subcutaneous -Post Debridement Size (cm) - Length 0.6 -Post Debridement Size (cm) - Width 0.3 -Post Debridement Size (cm) - Depth 0.1 -Total Square Cm 0.18 -Wound/Ulcer Outcome Not Healed -Ulcer Cleansing Rinsed/ Irrigated with Saline -Foul Odor after Cleansing No -Bioengineered Tissue No -Type of bioengineered Tissue EPIFIX -Bleeding Controlled with Pressure -Offloading No -Treatment Response Procedure Tolerated Well #7- LT CALF CLUSTER -Time 11:10 -Correct Patient Yes -Correct Side, Site, Position Yes -Correct Procedure Yes -Procedure Performed Yes -Type of Procedure Debridement -Clinical Debridement Subcutaneous -Post Debridement Size (cm) - Length 7.5 -Post Debridement Size (cm) - Width 5.5 -Post Debridement Size (cm) - Depth 0.1 -Total Square Cm 41.25 -Wound/Ulcer Outcome Not Healed -Ulcer Cleansing Rinsed/ Irrigated with Saline -Foul Odor after Cleansing No -Bioengineered Tissue No -Bleeding Controlled with Pressure -Offloading No -Treatment Response Procedure Tolerated Well Pain Scale: 0-10 Numeric Is Patient Pain Free? Yes Wound debrided: Left lower extremity posterior Wound Grade/Stage: Stage II Type of Debridement: Excisional debridement Anesthesia Used: 4% Lidocaine Solution Depth: Down to and including healthy tissue, in the subcutaneous layer Percentage of wound debrided: 100 Instrument Used: 5mm curette Tissue Removed: slough and devitalized tissue Severity: Fat Layer Exposed Amount of bleeding with debridement: Mild Bleeding Controlled with: Pressure Patient tolerated procedure well - Additional Wound Wound debrided: Left lateral Wound Grade/Stage: Stage II Type of Debridement: Excisional debridement Anesthesia Used: 4% Lidocaine Solution Depth: Down to and including healthy tissue, in the subcutaneous layer Percentage of wound debrided: 100 Instrument Used: 3mm curette Tissue Removed: Slough and devitalized tissue Severity: Fat Layer Exposed Amount of bleeding with debridement: Mild Bleeding Controlled with: Pressure Patient tolerated procedure: Patient tolerated procedure well Assessment/Plan Active Problems (Last Reviewed 02/28/19 @ 15:45 by Little Waterman) Ulcer of left lower extremity with fat layer exposed (Chronic) mixed venous arterial left posterior calf Lymphedema (Chronic) PVD (peripheral vascular disease) (Chronic) DM2 (diabetes mellitus, type 2) (Chronic) Assessment: Nonhealing recurrent left lower extremity ulceration secondary to lymphedema and peripheral arterial disease. Diabetes mellitus. Plan: No Significant improvement so far. Debridement done as documented above. Procedure was well-tolerated. Did not complete course of antibiotics however, tenderness is improved today. Continue Jackie with Adaptic over top. Change daily. Single layer Tubigrip for edema management. Due to chronicity and no significant improvement with traditional wound care, I believe she will benefit from an advanced wound care product such as epi-fix. Patient is willing to go forward with this. Awaiting insurance approval. Optimal blood sugar control and increased protein intake recommended. She was advised to elevate lower extremities when seated and in bed. All her questions were answered and she was advised to call with any further questions or concerns. This note was generated with [employer] software. It may contain incorrect words, spelling, and punctuation that were not noted in checking the note before signing.
--- NOTE | 2019-03-24 11:32 | PN.PCM_ITS ---
(1) Ulcer of left lower extremity with fat layer exposed Status: Chronic Current Visit: Yes Code(s): L97.922 - Non-pressure chronic ulcer of unspecified part of left lower leg with fat layer exposed Comment: mixed venous arterial left posterior calf (2) DM2 (diabetes mellitus, type 2) Status: Chronic Current Visit: Yes Code(s): E11.9 - Type 2 diabetes mellitus without complications (3) Lymphedema Status: Chronic Current Visit: Yes Code(s): I89.0 - Lymphedema, not elsewher e classified (4) PVD (peripheral vascular disease) Status: Chronic Current Visit: Yes Code(s): I73.9 - Peripheral vascular disease, unspecified (5) 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 Last seen here at the wound center in March however patient states that she had a recurrence of the ulcer several months ago. She has been doing a wet-to-dry dressing at home with no significant improvement. She is scheduled to have bladder repair however surgery is on hold until she has total healing of the ulcer. She denies chills, fever or otherwise feeling of unwell. History of lymphedema however does not utilize compression stockings due to poor tolerance. She also has a history of diabetes mellitus which she states is very well controlled. Progress of Wound: Stable. No new concerns. Pain has improved. - Physical Exam Vital Signs Temp Pulse Resp BP 97.6 F L 62 18 155/79 H 03/24/19 10:47 03/24/19 10:47 03/24/19 10:47 03/24/19 10:47 General: Alert, Oriented x3, Cooperative, No apparent distress HEENT: Atraumatic, Normocephalic Oral: Moist Mucosa Neck: Supple Lungs: Normal air movement Extremities: No cyanosis, Edema Skin: Ulcer/ Wound Wound Measurements and Assessment WC - Nurse 1 - General Ulcer Measurement Start: 03/03/19 09:40 Freq: Status: Active Protocol: Activity Type Activity Date Activity User E-Sign Co-Sign Detail Recorded Client Recorded Date Recorded By Document 03/24/19 10:47 DL [id number] 03/24/19 10:56 DL 03/24/19 10:47 Wound Center Nurse 1 [Ulcer Assessment] #8- LT LATERAL LE CLUSTER -Current Size (cm) - Length 4 -Current Size (cm) - Width 0.4 -Current Size (cm) - Depth 0.1 -Total Square Cm 1.6 -Photo Taken No -Exudate Amt None Present -Wound Margin Flat & Intact -Granulation Amt Large (67-100%) -Granulation Quality [place] -Necrosis Amt Small (1-33%) -Necrotic Tissue Type Adherent Slough -Structure Exposed N/A -Texture (Cassi-wound Skin Appearance) Scarring -Moisture (Cassi-wound Skin Appearance No Abnormality ) -Color (Cassi-wound Skin Appearance) No Abnormality Hemosiderin Staining -Temperature (Cassi-wound Skin No Abnormality Appearance) (Pt Warm) -Tenderness on Palpation (Cassi-wound No Skin Appearance) -Ulcer Cleansing Rinsed/ Irrigated with Saline -Foul Odor after Cleansing No -Anesthetic Used 4% Lidocaine Solution #7- LT CALF CLUSTER -Current Size (cm) - Length 4.8 -Current Size (cm) - Width 3.8 -Current Size (cm) - Depth 0.1 -Total Square Cm 18.24 -Photo Taken No -Exudate Amt Small -Exudate Type Serosanguineous -Wound Margin Distinct, Outline Attached -Granulation Amt Large (67-100%) -Granulation Quality [place] -Necrosis Amt Small (1-33%) -Necrotic Tissue Type Adherent Slough -Structure Exposed N/A -Texture (Cassi-wound Skin Appearance) Scarring -Moisture (Casis-wound Skin Appearance No Abnormality ) -Color (Cassi-wound Skin Appearance) No Abnormality -Temperature (Cassi-wound Skin No Abnormality Appearance) (Pt Warm) -Tenderness on Palpation (Cassi-wound No Skin Appearance) -Ulcer Cleansing Wound Cleanser -Foul Odor after Cleansing No -Anesthetic Used 4% Lidocaine Solution [Edema Assessment] -Left Calf (cm) 39.5 -Left Ankle (cm) 22.5 WC - Nurse 2 - General Ulcer CM Notes Start: 03/03/19 09:40 Freq: Status: Active Protocol: Activity Type Activity Date Activity User E-Sign Co-Sign Detail Recorded Client Recorded Date Recorded By Document 03/24/19 11:07 MW [id number] 03/24/19 11:12 MW 03/24/19 11:07 Wound Center Nurse 2 [Procedure/Treatment] #8- LT LATERAL LE CLUSTER -Time 11:10 -Correct Patient Yes -Correct Side, Site, Position Yes -Correct Procedure Yes -Procedure Performed Yes -Type of Procedure Debridement -Clinical Debridement Subcutaneous -Post Debridement Size (cm) - Length 0.6 -Post Debridement Size (cm) - Width 0.3 -Post Debridement Size (cm) - Depth 0.1 -Total Square Cm 0.18 -Wound/Ulcer Outcome Not Healed -Ulcer Cleansing Rinsed/ Irrigated with Saline -Foul Odor after Cleansing No -Bioengineered Tissue No -Type of bioengineered Tissue EPIFIX -Bleeding Controlled with Pressure -Offloading No -Treatment Response Procedure Tolerated Well #7- LT CALF CLUSTER -Time 11:10 -Correct Patient Yes -Correct Side, Site, Position Yes -Correct Procedure Yes -Procedure Performed Yes -Type of Procedure Debridement -Clinical Debridement Subcutaneous -Post Debridement Size (cm) - Length 7.5 -Post Debridement Size (cm) - Width 5.5 -Post Debridement Size (cm) - Depth 0.1 -Total Square Cm 41.25 -Wound/Ulcer Outcome Not Healed -Ulcer Cleansing Rinsed/ Irrigated with Saline -Foul Odor after Cleansing No -Bioengineered Tissue No -Bleeding Controlled with Pressure -Offloading No -Treatment Response Procedure Tolerated Well [See Physician Procedure note for Specifics] Pain Scale: 0-10 Numeric [Pain] -Is Patient Pain Free? Yes Musculoskeletal: No Muscle Wasting Neurological: Cranial nerves II-XII grossly intact Psych/Mental Status: Normal Affect Debridement Note Post-Debridement Measurements/Treatment WC - Nurse 2 - General Ulcer CM Notes Start: 03/03/19 09:40 Freq: Status: Active Protocol: Activity Type Activity Date Activity User E-Sign Co-Sign Detail Recorded Client Recorded Date Recorded By Document 03/03/19 10:27 MW [id number] 03/03/19 10:37 MW Document 03/10/19 12:16 MW [id number] 03/10/19 12:20 MW Document 03/17/19 12:39 MW [id number] 03/17/19 12:46 MW Document 03/24/19 11:07 MW [id number] 03/24/19 11:12 MW 03/03/19 03/10/19 03/17/19 10:27 12:16 12:39 Wound Center Nurse 2 #9- LT YARBROUGH CLUSTER -Time 12:19 12:40 -Correct Patient Yes Yes Yes -Correct Side, Site, Position Yes Yes Yes -Correct Procedure Yes Yes Yes -Procedure Performed Yes Yes No -Type of Procedure Debridement Debridement -Clinical Debridement Subcutaneous Subcutaneous -Post Debridement Size (cm) - Length 0.7 0.4 0 -Post Debridement Size (cm) - Width 0.7 1.0 0 -Post Debridement Size (cm) - Depth 0.1 0.1 0 -Total Square Cm 0.49 0.40 0 -Wound/Ulcer Outcome Not Healed Not Healed Healed- Epithelialized -Ulcer Cleansing Rinsed/ Rinsed/ Irrigated with Irrigated with Saline Saline -Foul Odor after Cleansing No No -Bioengineered Tissue No No -Bleeding Controlled with Pressure Pressure Pressure -Offloading No No No -Treatment Response Procedure Procedure Procedure Tolerated Well Tolerated Well Tolerated Well #8- LT LATERAL LE CLUSTER -Time 12: 12:40 -Correct Patient Yes Yes Yes -Correct Side, Site, Position Yes Yes Yes -Correct Procedure Yes Yes Yes -Procedure Performed Yes Yes Yes -Type of Procedure Debridement Debridement Debridement -Clinical Debridement Subcutaneous Subcutaneous Subcutaneous -Post Debridement Size (cm) - Length 1.5 0.6 0.6 -Post Debridement Size (cm) - Width 1.0 0.5 0.4 -Post Debridement Size (cm) - Depth 0.1 0.1 0.1 -Total Square Cm 1.50 0.30 0.24 -Wound/Ulcer Outcome Not Healed Not Healed Not Healed -Ulcer Cleansing Rinsed/ Rinsed/ Rinsed/ Irrigated with Irrigated with Irrigated with Saline Saline Saline -Foul Odor after Cleansing No No No -Bioengineered Tissue No No -Type of bioengineered Tissue -Bleeding Controlled with Pressure Pressure Pressure -Offloading No No No -Treatment Response Procedure Procedure Procedure Tolerated Well Tolerated Well Tolerated Well #7- LT CALF CLUSTER -Time 12: 12:41 -Correct Patient Yes Yes Yes -Correct Side, Site, Position Yes Yes Yes -Correct Procedure Yes Yes Yes -Procedure Performed Yes Yes Yes -Type of Procedure Debridement Debridement Debridement -Clinical Debridement Subcutaneous Subcutaneous Subcutaneous -Post Debridement Size (cm) - Length 6.0 4.5 6.0 -Post Debridement Size (cm) - Width 6.0 5.5 7.5 -Post Debridement Size (cm) - Depth 0.2 0.1 0.1 -Total Square Cm 36.00 24.75 45.00 -Wound/Ulcer Outcome Not Healed Not Healed Not Healed -Ulcer Cleansing Rinsed/ Rinsed/ Rinsed/ Irrigated with Irrigated with Irrigated with Saline Saline Saline -Foul Odor after Cleansing No No No -Bioengineered Tissue No No No -Bleeding Controlled with Pressure Pressure Pressure -Offloading No No No -Treatment Response Procedure Procedure Procedure Tolerated Well Tolerated Well Tolerated Well Pain Scale: 0-10 Numeric Is Patient Pain Free? Yes Yes Yes 03/24/19 11:07 Wound Center Nurse 2 #9- LT YARBROUGH CLUSTER -Time -Correct Patient -Correct Side, Site, Position -Correct Procedure -Procedure Performed -Type of Procedure -Clinical Debridement -Post Debridement Size (cm) - Length -Post Debridement Size (cm) - Width -Post Debridement Size (cm) - Depth -Total Square Cm -Wound/Ulcer Outcome -Ulcer Cleansing -Foul Odor after Cleansing -Bioengineered Tissue -Bleeding Controlled with -Offloading -Treatment Response #8- LT LATERAL LE CLUSTER -Time 11:10 -Correct Patient Yes -Correct Side, Site, Position Yes -Correct Procedure Yes -Procedure Performed Yes -Type of Procedure Debridement -Clinical Debridement Subcutaneous -Post Debridement Size (cm) - Length 0.6 -Post Debridement Size (cm) - Width 0.3 -Post Debridement Size (cm) - Depth 0.1 -Total Square Cm 0.18 -Wound/Ulcer Outcome Not Healed -Ulcer Cleansing Rinsed/ Irrigated with Saline -Foul Odor after Cleansing No -Bioengineered Tissue No -Type of bioengineered Tissue EPIFIX -Bleeding Controlled with Pressure -Offloading No -Treatment Response Procedure Tolerated Well #7- LT CALF CLUSTER -Time 11:10 -Correct Patient Yes -Correct Side, Site, Position Yes -Correct Procedure Yes -Procedure Performed Yes -Type of Procedure Debridement -Clinical Debridement Subcutaneous -Post Debridement Size (cm) - Length 7.5 -Post Debridement Size (cm) - Width 5.5 -Post Debridement Size (cm) - Depth 0.1 -Total Square Cm 41.25 -Wound/Ulcer Outcome Not Healed -Ulcer Cleansing Rinsed/ Irrigated with Saline -Foul Odor after Cleansing No -Bioengineered Tissue No -Bleeding Controlled with Pressure -Offloading No -Treatment Response Procedure Tolerated Well Pain Scale: 0-10 Numeric Is Patient Pain Free? Yes Wound debrided: Left lower extremity posterior Wound Grade/Stage: Stage II Type of Debridement: Excisional debridement Anesthesia Used: 4% Lidocaine Solution Depth: Down to and including healthy tissue, in the subcutaneous layer Percentage of wound debrided: 100 Instrument Used: 5mm curette Tissue Removed: slough and devitalized tissue Severity: Fat Layer Exposed Amount of bleeding with debridement: Mild Bleeding Controlled with: Pressure Patient tolerated procedure well - Additional Wound Wound debrided: Left lateral Wound Grade/Stage: Stage II Type of Debridement: Excisional debridement Anesthesia Used: 4% Lidocaine Solution Depth: Down to and including healthy tissue, in the subcutaneous layer Percentage of wound debrided: 100 Instrument Used: 3mm curette Tissue Removed: Slough and devitalized tissue Severity: Fat Layer Exposed Amount of bleeding with debridement: Mild Bleeding Controlled with: Pressure Patient tolerated procedure: Patient tolerated procedure well Assessment/Plan Active Problems (Last Reviewed 02/28/19 @ 15:45 by Little Waterman) Ulcer of left lower extremity with fat layer exposed (Chronic) mixed venous arterial left posterior calf Lymphedema (Chronic) PVD (peripheral vascular disease) (Chronic) DM2 (diabetes mellitus, type 2) (Chronic) Assessment: Nonhealing recurrent left lower extremity ulceration secondary to lymphedema and peripheral arterial disease. Diabetes mellitus. Plan: No Significant improvement so far. Debridement done as documented above. Procedure was well-tolerated. Did not complete course of antibiotics however, tenderness is improved today. Continue Jackie with Adaptic over top. Change daily. Single layer Tubigrip for edema management. Due to chronicity and no significant improvement with traditional wound care, I believe she will benefit from an advanced wound care product such as epi-fix. Patient is willing to go forward with this. Awaiting insurance approval. Optimal blood sugar control and increased protein intake recommended. She was advised to elevate lower extremities when seated and in bed. All her questions were answered and she was advised to call with any further questions or concerns. This note was generated with [employer] software. It may contain incorrect words, spelling, and punctuation that were not noted in checking the note before signing.
== END 2019-03-29 23:59 ==
LOC: WC 10:00
PROVIDERS: Family Provider Nurse Practitioner; PCP Nurse Practitioner; Visit Provider Internal Medicine
DX: E11.622 Type 2 diabetes mellitus with other skin ulcer (principal); L97.222 Non-pressure chronic ulcer of left calf with fat layer exposed; L97.822 Non-pressure chronic ulcer of other part of left lower leg with fat layer exposed; I89.0 Lymphedema, not elsewhere classified; E11.51 Type 2 diabetes mellitus with diabetic peripheral angiopathy without gangrene; E66.01 Morbid (severe) obesity due to excess calories; Z68.42 Body mass index [BMI] 45.0-49.9, adult; I25.10 Atherosclerotic heart disease of native coronary artery without angina pectoris; I12.9 Hypertensive chronic kidney disease with stage 1 through stage 4 chronic kidney disease, or unspecified chronic kidney disease; E11.22 Type 2 diabetes mellitus with diabetic chronic kidney disease; N18.4 Chronic kidney disease, stage 4 (severe); Z79.4 Long term (current) use of insulin; Z79.52 Long term (current) use of systemic steroids; I48.0 Paroxysmal atrial fibrillation; E78.5 Hyperlipidemia, unspecified; Z86.718 Personal history of other venous thrombosis and embolism
CPT/HCPCS: 11042; 11045; 84134; 87070; 87075; 87077; 87186; 87205; 99213; G0463

== ENCOUNTER → 2019-03-31 13:49 | Outpatient (CLI) | payer MEDICARE, SELFPAY ==
[2016-12-05 15:47] VITALS: BMI 35.6
[2019-02-28 15:43] VITALS: BMI 39.4
[2019-03-31 11:48] VITALS: BMI 38.4
--- NOTE | 2019-03-31 13:51 | ECHOD_ITS ---
Reason For Study: Murmur Procedure This was a 2D Doppler, Color Flow transthoracic echocardiogram. The exam was of adequate technical quality. Exam performed in department. Left Ventricle Normal LV size. Sigmoid septum. Left ventricular systolic function is normal. The estimated ejection fraction is 65 %. No regional wall motion abnormalities noted. Right Ventricle Normal RV size. Normal systolic function. Atria The left atrium is moderately enlarged. Normal right atrium. No doppler evidence for ASD. Mitral Valve There is mild mitral annular calcification. Normal mitral valve. Trivial mitral valve insufficiency. Tricuspid Valve Normal tricuspid valve. Mild tricuspid valve insufficiency. Right ventricular systolic pressure estimated to be 34 mmHg. Aortic Valve Trisinus/trileaflet aortic valve. Mild diffuse aortic valve thickening. Moderate focal aortic valve calcification. Mild aortic stenosis. Trivial aortic valve insufficiency. Pulmonic Valve The pulmonic valve is not well visualized. Trivial pulmonic valve insufficiency. Great Vessels Normal sized aortic root. Pericardium/Pleural No pericardial effusion. MMode/2D Measurements & Calculations LVIDd: 4.8 cm IVSd: 1.5 cm LVOT diam: 2.0 cm LVIDs: 2.5 cm LVPWd: 1.0 cm LVOT area: 3.1 cm2 FS: 47.4 % Ao root diam: 3.6 cm LAV(MOD-bp): 86.1 ml LA A4 area: 28.7 cm2 LA dimension: 4.2 cm LAV(MOD-bp) Indexed: 44.1 ml/m2 LAV(MOD-sp2): 65.6 ml LAV(MOD-sp4): 99.2 ml Time Measurements MV dec time: 0.18 sec Doppler Measurements & Calculations MV E max david: 108.7 cm/sec Lat Peak E' David: 10.9 cm/sec Med Peak E' David: 4.5 cm/sec MV A max david: 80.4 cm/sec E/E' lat: 10.0 E/E' med: 24.1 MV E/A: 1.4 MV V2 max: 108.1 cm/sec MV P1/2t max david: 108.1 cm/sec Ao V2 max: 186.2 cm/sec MV max P.7 mmHg MV P1/2t: 79.3 msec Ao max P.9 mmHg MV V2 mean: 59.2 cm/sec MV dec slope: 399.0 cm/sec2 Ao V2 mean: 110.1 cm/sec MV mean P.6 mmHg MVA(P1/2t): 2.8 cm2 Ao mean P.0 mmHg MV V2 VTI: 32.1 cm Ao V2 VTI: 39.0 cm MVA(VTI): 2.4 cm2 BONI(I,D): 1.9 cm2 BONI(V,D): 1.7 cm2 AI max david: 356.9 cm/sec LV V1 max: 105.5 cm/sec SV(LVOT): 75.4 ml AI max P.2 mmHg LV V1 max P.5 mmHg LV V1 mean P.1 mmHg AI dec slope: 202.2 cm/sec2 LV V1 mean: 65.3 cm/sec AI P1/2t: 516.9 msec LV V1 VTI: 24.5 cm PA V2 max: 147.7 cm/sec TR max david: 276.1 cm/sec TR max P.5 mmHg Interpretation Summary Left ventricular systolic function is normal. The estimated ejection fraction is 65 %. Sigmoid septum. The left atrium is moderately enlarged. There is mild mitral annular calcification. Trivial mitral valve insufficiency. Mild tricuspid valve insufficiency. Mild aortic stenosis. Trivial aortic valve insufficiency. Trivial pulmonic valve insufficiency. Right ventricular systolic pressure estimated to be 34 mmHg. Transmitral diastolic flow velocities suggest diastolic dysfunction (pseudonormal pattern). Ordering Physician: Gustavo Piña Referring Physician: Gustavo Piña Performed By: Venancio Jarrett RCS
== END ==
PROVIDERS: Family Provider Nurse Practitioner; PCP Nurse Practitioner; Referring Provider Internal Medicine Cardiovascular Disease; Visit Provider Internal Medicine Cardiovascular Disease
DX: I38 Endocarditis, valve unspecified (principal); E11.622 Type 2 diabetes mellitus with other skin ulcer; L97.222 Non-pressure chronic ulcer of left calf with fat layer exposed; E66.01 Morbid (severe) obesity due to excess calories; E11.51 Type 2 diabetes mellitus with diabetic peripheral angiopathy without gangrene; I89.0 Lymphedema, not elsewhere classified; Z68.42 Body mass index [BMI] 45.0-49.9, adult
CPT/HCPCS: 11042; 11045; 93306

== ENCOUNTER 2019-04-28 11:30 | Outpatient (RCR) | payer MEDICARE, SELFPAY ==
[2016-12-05 15:47] VITALS: BMI 35.6
[2019-03-30 01:44] VITALS: BP 155/79; PULSE 62; RESP 18; TEMP 36.4
[2019-03-31 11:48] VITALS: BP 149/66; PULSE 64; RESP 16; TEMP 36.2; BMI 38.4
--- NOTE | 2019-03-31 12:27 | PCM.WC.PN ---
(1) Ulcer of left lower extremity with fat layer exposed Status: Chronic Current Visit: Yes Code(s): L97.922 - Non-pressure chronic ulcer of unspecified part of left lower leg with fat layer exposed Comment: mixed venous arterial left posterior calf (2) DM2 (diabetes mellitus, type 2) Status: Chronic Current Visit: Yes Code(s): E11.9 - Type 2 diabetes mellitus without complications (3) Morbid obesity with BMI of 45.0-49.9, adult Status: Chronic Current Visit: No Code(s): E66.01 - Morbid (severe) obesity due to excess calories; Z68.42 - Body mass index (BMI) 45.0-49.9, adult Type of Wound Chief Complaint: Non healing Ulcers History of Wound: Ms Stapleton is a 73-year-old with past medical history as stated above well-known to the wound center who returns due to nonhealing left lower extremity ulcer. Last seen here at the wound center in March however patient states that she had a recurrence of the ulcer several months ago. She has been doing a wet-to-dry dressing at home with no significant improvement. She is scheduled to have bladder repair however surgery is on hold until she has total healing of the ulcer. She denies chills, fever or otherwise feeling of unwell. History of lymphedema however does not utilize compression stockings due to poor tolerance. She also has a history of diabetes mellitus which she states is very well controlled. Progress of Wound: Stable. No new concerns at this time. - Physical Exam Vital Signs Temp Pulse Resp BP 97.1 F L 64 16 149/66 H 03/31/19 11:48 03/31/19 11:48 03/31/19 11:48 03/31/19 11:48 General: Alert, Oriented x3, Cooperative, No apparent distress HEENT: Atraumatic, Normocephalic Oral: Moist Mucosa Neck: Supple Lungs: Normal air movement Abdomen: Non Tender, Obese Extremities: No cyanosis, Edema Skin: Ulcer/ Wound Wound Measurements and Assessment WC - Nurse 1 - General Ulcer Measurement Start: 03/31/19 11:48 Freq: Status: Active Protocol: Activity Type Activity Date Activity User E-Sign Co-Sign Detail Recorded Client Recorded Date Recorded By Document 03/31/19 11:48 [facility] [id number] 03/31/19 11:57 BM 03/31/19 11:48 Wound Center Nurse 1 [Ulcer Assessment] #8- LT LATERAL LE CLUSTER -Combined with other wound No -Current Size (cm) - Length 4.2 -Current Size (cm) - Width 1.4 -Current Size (cm) - Depth 0.1 -Total Square Cm 5.88 -Photo Taken No -Epithelialization Small 1-33% -Tunneling No -Undermining/Tunneling No -Circular Undermining No -Exudate Amt None Present -Wound Margin Flat & Intact -Granulation Amt None Present (0 %) -Slough/Fibrin Yes -Necrosis Amt Large (67-100%) -Necrotic Tissue Type Eschar -Texture (Cassi-wound Skin Appearance) Assessed Scarring -Moisture (Cassi-wound Skin Appearance Assessed ) -Color (Cassi-wound Skin Appearance) Assessed Erythema -Temperature (Cassi-wound Skin No Abnormality Appearance) (Pt Warm) -Tenderness on Palpation (Cassi-wound No Skin Appearance) -Ulcer Cleansing Rinsed/ Irrigated with Saline -Foul Odor after Cleansing No -Anesthetic Used 5% Lidocaine Gel #7- LT CALF CLUSTER -Combined with other wound No -Current Size (cm) - Length 8.8 -Current Size (cm) - Width 6.7 -Current Size (cm) - Depth 0.2 -Total Square Cm 58.96 -Photo Taken No -Epithelialization None Present -Tunneling No -Undermining/Tunneling No -Circular Undermining No -Exudate Amt Small -Exudate Type Serosanguineous -Wound Margin Thickened -Granulation Amt Medium (34-66%) -Granulation Quality [place] -Slough/Fibrin Yes -Necrosis Amt Medium (34-66%) -Necrotic Tissue Type Adherent Slough -Texture (Cassi-wound Skin Appearance) Scarring -Moisture (Cassi-wound Skin Appearance Assessed ) -Color (Cassi-wound Skin Appearance) Assessed -Temperature (Cassi-wound Skin No Abnormality Appearance) (Pt Warm) -Tenderness on Palpation (Cassi-wound No Skin Appearance) -Ulcer Cleansing Wound Cleanser -Foul Odor after Cleansing No -Anesthetic Used 5% Lidocaine Gel [Edema Assessment] -Lower Limb Edema Present Yes -Left Calf (cm) 39.6 -Left Ankle (cm) 22.5 WC - Nurse 2 - General Ulcer CM Notes Start: 03/31/19 11:48 Freq: Status: Active Protocol: Activity Type Activity Date Activity User E-Sign Co-Sign Detail Recorded Client Recorded Date Recorded By Document 03/31/19 12:09 DV [id number] 03/31/19 12:13 DV 03/31/19 12:09 Wound Center Nurse 2 [Procedure/Treatment] #8- LT LATERAL LE CLUSTER -Time 12:10 -Correct Patient Yes -Correct Side, Site, Position Yes -Correct Procedure Yes -Procedure Performed Yes -Type of Procedure Debridement -Clinical Debridement Subcutaneous -Post Debridement Size (cm) - Length 0.1 -Post Debridement Size (cm) - Width 0.1 -Post Debridement Size (cm) - Depth 0.1 -Total Square Cm 0.01 -Wound/Ulcer Outcome Not Healed -Ulcer Cleansing Rinsed/ Irrigated with Saline -Foul Odor after Cleansing No -Bioengineered Tissue No -Bleeding Controlled with Pressure -Offloading No -Treatment Response Procedure Tolerated Well #7- LT CALF CLUSTER -Time 12:12 -Correct Patient Yes -Correct Side, Site, Position Yes -Correct Procedure Yes -Procedure Performed Yes -Type of Procedure Debridement -Clinical Debridement Subcutaneous -Post Debridement Size (cm) - Length 7.0 -Post Debridement Size (cm) - Width 5.0 -Post Debridement Size (cm) - Depth 0.1 -Total Square Cm 35.00 -Wound/Ulcer Outcome Not Healed -Ulcer Cleansing Rinsed/ Irrigated with Saline -Bleeding Controlled with Pressure -Offloading No -Treatment Response Procedure Tolerated Well [See Physician Procedure note for Specifics] Pain Scale: 0-10 Numeric [Pain] -Is Patient Pain Free? Yes Musculoskeletal: No Muscle Wasting Neurological: Cranial nerves II-XII grossly intact Psych/Mental Status: Normal Affect Debridement Note Post-Debridement Measurements/Treatment WC - Nurse 2 - General Ulcer CM Notes Start: 03/31/19 11:48 Freq: Status: Active Protocol: Activity Type Activity Date Activity User E-Sign Co-Sign Detail Recorded Client Recorded Date Recorded By Document 03/31/19 12:09 DV [id number] 03/31/19 12:13 DV 03/31/19 12:09 Wound Center Nurse 2 #8- LT LATERAL LE CLUSTER -Time 12:10 -Correct Patient Yes -Correct Side, Site, Position Yes -Correct Procedure Yes -Procedure Performed Yes -Type of Procedure Debridement -Clinical Debridement Subcutaneous -Post Debridement Size (cm) - Length 0.1 -Post Debridement Size (cm) - Width 0.1 -Post Debridement Size (cm) - Depth 0.1 -Total Square Cm 0.01 -Wound/Ulcer Outcome Not Healed -Ulcer Cleansing Rinsed/ Irrigated with Saline -Foul Odor after Cleansing No -Bioengineered Tissue No -Bleeding Controlled with Pressure -Offloading No -Treatment Response Procedure Tolerated Well #7- LT CALF CLUSTER -Time 12:12 -Correct Patient Yes -Correct Side, Site, Position Yes -Correct Procedure Yes -Procedure Performed Yes -Type of Procedure Debridement -Clinical Debridement Subcutaneous -Post Debridement Size (cm) - Length 7.0 -Post Debridement Size (cm) - Width 5.0 -Post Debridement Size (cm) - Depth 0.1 -Total Square Cm 35.00 -Wound/Ulcer Outcome Not Healed -Ulcer Cleansing Rinsed/ Irrigated with Saline -Bleeding Controlled with Pressure -Offloading No -Treatment Response Procedure Tolerated Well Pain Scale: 0-10 Numeric Is Patient Pain Free? Yes Wound debrided: Left lower extremity Cluster ( Calf ) Wound Grade/Stage: Stage II Type of Debridement: Excisional debridement Anesthesia Used: 4% Lidocaine Solution Depth: Down to and including healthy tissue, in the subcutaneous layer Percentage of wound debrided: 100 Instrument Used: 7mm curette Tissue Removed: Slough and devitalized tissue Severity: Fat Layer Exposed Amount of bleeding with debridement: Mild Bleeding Controlled with: Pressure Patient tolerated procedure well Assessment/Plan Active Problems (Last Reviewed 02/28/19 @ 15:45 by Little Waterman) Ulcer of left lower extremity with fat layer exposed (Chronic) mixed venous arterial left posterior calf DM2 (diabetes mellitus, type 2) (Chronic) Assessment: Nonhealing recurrent left lower extremity ulceration secondary to lymphedema and peripheral arterial disease. Diabetes mellitus. Plan: Stable. No significant change in the past week to calf. lateral cluster has improved. Debridement done as documented above. Procedure was well-tolerated. Continue Jackie with Adaptic over top. Change daily. Single layer Tubigrip for edema management. Complaince strongly encouraged. Patient is not complaint with compression. Optimal blood sugar control and increased protein intake recommended. She was advised to elevate lower extremities when seated and in bed. All her questions were answered and she was advised to call with any further questions or concerns. Follow up in 1 week. This note was generated with [employer] software. It may contain incorrect words, spelling, and punctuation that were not noted in checking the note before signing.
--- NOTE | 2019-03-31 12:31 | PN.PCM_ITS ---
(1) Ulcer of left lower extremity with fat layer exposed Status: Chronic Current Visit: Yes Code(s): L97.922 - Non-pressure chronic ulcer of unspecified part of left lower leg with fat layer exposed Comment: mixed venous arterial left posterior calf (2) DM2 (diabetes mellitus, type 2) Status: Chronic Current Visit: Yes Code(s): E11.9 - Type 2 diabetes mellitus without complications (3) Morbid obesity with BMI of 45.0-49.9, adult Status: Chronic Current Visit: No Code(s): E66.01 - Morbid (severe) obesity due to excess calories; Z68.42 - Body mass index (BMI) 45.0-49.9, adult Type of Wound Chief Complaint: Non healing Ulcers History of Wound: Ms Stapleton is a 73-year-old with past medical history as stated above well-known to the wound center who returns due to nonhealing left lower extremity ulcer. Last seen here at the wound center in March however patient states that she had a recurrence of the ulcer several months ago. She has been doing a wet-to-dry dressing at home with no significant improvement. She is scheduled to have bladder repair however surgery is on hold until she has total healing of the ulcer. She denies chills, fever or otherwise feeling of unwell. History of lymphedema however does not utilize compression stockings due to poor tolerance. She also has a history of diabetes mellitus which she states is very well controlled. Progress of Wound: Stable. No new concerns at this time. - Physical Exam Vital Signs Temp Pulse Resp BP 97.1 F L 64 16 149/66 H 03/31/19 11:48 03/31/19 11:48 03/31/19 11:48 03/31/19 11:48 General: Alert, Oriented x3, Cooperative, No apparent distress HEENT: Atraumatic, Normocephalic Oral: Moist Mucosa Neck: Supple Lungs: Normal air movement Abdomen: Non Tender, Obese Extremities: No cyanosis, Edema Skin: Ulcer/ Wound Wound Measurements and Assessment WC - Nurse 1 - General Ulcer Measurement Start: 03/31/19 11:48 Freq: Status: Active Protocol: Activity Type Activity Date Activity User E-Sign Co-Sign Detail Recorded Client Recorded Date Recorded By Document 03/31/19 11:48 [facility] [id number] 03/31/19 11:57 BM 03/31/19 11:48 Wound Center Nurse 1 [Ulcer Assessment] #8- LT LATERAL LE CLUSTER -Combined with other wound No -Current Size (cm) - Length 4.2 -Current Size (cm) - Width 1.4 -Current Size (cm) - Depth 0.1 -Total Square Cm 5.88 -Photo Taken No -Epithelialization Small 1-33% -Tunneling No -Undermining/Tunneling No -Circular Undermining No -Exudate Amt None Present -Wound Margin Flat & Intact -Granulation Amt None Present (0 %) -Slough/Fibrin Yes -Necrosis Amt Large (67-100%) -Necrotic Tissue Type Eschar -Texture (Cassi-wound Skin Appearance) Assessed Scarring -Moisture (Cassi-wound Skin Appearance Assessed ) -Color (Cassi-wound Skin Appearance) Assessed Erythema -Temperature (Cassi-wound Skin No Abnormality Appearance) (Pt Warm) -Tenderness on Palpation (Cassi-wound No Skin Appearance) -Ulcer Cleansing Rinsed/ Irrigated with Saline -Foul Odor after Cleansing No -Anesthetic Used 5% Lidocaine Gel #7- LT CALF CLUSTER -Combined with other wound No -Current Size (cm) - Length 8.8 -Current Size (cm) - Width 6.7 -Current Size (cm) - Depth 0.2 -Total Square Cm 58.96 -Photo Taken No -Epithelialization None Present -Tunneling No -Undermining/Tunneling No -Circular Undermining No -Exudate Amt Small -Exudate Type Serosanguineous -Wound Margin Thickened -Granulation Amt Medium (34-66%) -Granulation Quality [place] -Slough/Fibrin Yes -Necrosis Amt Medium (34-66%) -Necrotic Tissue Type Adherent Slough -Texture (Cassi-wound Skin Appearance) Scarring -Moisture (Cassi-wound Skin Appearance Assessed ) -Color (Cassi-wound Skin Appearance) Assessed -Temperature (Cassi-wound Skin No Abnormality Appearance) (Pt Warm) -Tenderness on Palpation (Cassi-wound No Skin Appearance) -Ulcer Cleansing Wound Cleanser -Foul Odor after Cleansing No -Anesthetic Used 5% Lidocaine Gel [Edema Assessment] -Lower Limb Edema Present Yes -Left Calf (cm) 39.6 -Left Ankle (cm) 22.5 WC - Nurse 2 - General Ulcer CM Notes Start: 03/31/19 11:48 Freq: Status: Active Protocol: Activity Type Activity Date Activity User E-Sign Co-Sign Detail Recorded Client Recorded Date Recorded By Document 03/31/19 12:09 DV [id number] 03/31/19 12:13 DV 03/31/19 12:09 Wound Center Nurse 2 [Procedure/Treatment] #8- LT LATERAL LE CLUSTER -Time 12:10 -Correct Patient Yes -Correct Side, Site, Position Yes -Correct Procedure Yes -Procedure Performed Yes -Type of Procedure Debridement -Clinical Debridement Subcutaneous -Post Debridement Size (cm) - Length 0.1 -Post Debridement Size (cm) - Width 0.1 -Post Debridement Size (cm) - Depth 0.1 -Total Square Cm 0.01 -Wound/Ulcer Outcome Not Healed -Ulcer Cleansing Rinsed/ Irrigated with Saline -Foul Odor after Cleansing No -Bioengineered Tissue No -Bleeding Controlled with Pressure -Offloading No -Treatment Response Procedure Tolerated Well #7- LT CALF CLUSTER -Time 12:12 -Correct Patient Yes -Correct Side, Site, Position Yes -Correct Procedure Yes -Procedure Performed Yes -Type of Procedure Debridement -Clinical Debridement Subcutaneous -Post Debridement Size (cm) - Length 7.0 -Post Debridement Size (cm) - Width 5.0 -Post Debridement Size (cm) - Depth 0.1 -Total Square Cm 35.00 -Wound/Ulcer Outcome Not Healed -Ulcer Cleansing Rinsed/ Irrigated with Saline -Bleeding Controlled with Pressure -Offloading No -Treatment Response Procedure Tolerated Well [See Physician Procedure note for Specifics] Pain Scale: 0-10 Numeric [Pain] -Is Patient Pain Free? Yes Musculoskeletal: No Muscle Wasting Neurological: Cranial nerves II-XII grossly intact Psych/Mental Status: Normal Affect Debridement Note Post-Debridement Measurements/Treatment WC - Nurse 2 - General Ulcer CM Notes Start: 03/31/19 11:48 Freq: Status: Active Protocol: Activity Type Activity Date Activity User E-Sign Co-Sign Detail Recorded Client Recorded Date Recorded By Document 03/31/19 12:09 DV [id number] 03/31/19 12:13 DV 03/31/19 12:09 Wound Center Nurse 2 #8- LT LATERAL LE CLUSTER -Time 12:10 -Correct Patient Yes -Correct Side, Site, Position Yes -Correct Procedure Yes -Procedure Performed Yes -Type of Procedure Debridement -Clinical Debridement Subcutaneous -Post Debridement Size (cm) - Length 0.1 -Post Debridement Size (cm) - Width 0.1 -Post Debridement Size (cm) - Depth 0.1 -Total Square Cm 0.01 -Wound/Ulcer Outcome Not Healed -Ulcer Cleansing Rinsed/ Irrigated with Saline -Foul Odor after Cleansing No -Bioengineered Tissue No -Bleeding Controlled with Pressure -Offloading No -Treatment Response Procedure Tolerated Well #7- LT CALF CLUSTER -Time 12:12 -Correct Patient Yes -Correct Side, Site, Position Yes -Correct Procedure Yes -Procedure Performed Yes -Type of Procedure Debridement -Clinical Debridement Subcutaneous -Post Debridement Size (cm) - Length 7.0 -Post Debridement Size (cm) - Width 5.0 -Post Debridement Size (cm) - Depth 0.1 -Total Square Cm 35.00 -Wound/Ulcer Outcome Not Healed -Ulcer Cleansing Rinsed/ Irrigated with Saline -Bleeding Controlled with Pressure -Offloading No -Treatment Response Procedure Tolerated Well Pain Scale: 0-10 Numeric Is Patient Pain Free? Yes Wound debrided: Left lower extremity Cluster ( Calf ) Wound Grade/Stage: Stage II Type of Debridement: Excisional debridement Anesthesia Used: 4% Lidocaine Solution Depth: Down to and including healthy tissue, in the subcutaneous layer Percentage of wound debrided: 100 Instrument Used: 7mm curette Tissue Removed: Slough and devitalized tissue Severity: Fat Layer Exposed Amount of bleeding with debridement: Mild Bleeding Controlled with: Pressure Patient tolerated procedure well Assessment/Plan Active Problems (Last Reviewed 02/28/19 @ 15:45 by Little Waterman) Ulcer of left lower extremity with fat layer exposed (Chronic) mixed venous arterial left posterior calf DM2 (diabetes mellitus, type 2) (Chronic) Assessment: Nonhealing recurrent left lower extremity ulceration secondary to lymphedema and peripheral arterial disease. Diabetes mellitus. Plan: Stable. No significant change in the past week to calf. lateral cluster has improved. Debridement done as documented above. Procedure was well- tolerated. Continue Jackie with Adaptic over top. Change daily. Single layer Tubigrip for edema management. Complaince strongly encouraged. Patient is not complaint with compression. Optimal blood sugar control and increased protein intake recommended. She was advised to elevate lower extremities when seated and in bed. All her questions were answered and she was advised to call with any further questions or concerns. Follow up in 1 week. This note was generated with [employer] software. It may contain incorrect words, spelling, and punctuation that were not noted in checking the note before signing.
[2019-04-07 11:31] VITALS: BP 140/59; PULSE 66; RESP 18; TEMP 36.3; BMI 38.4
--- NOTE | 2019-04-07 12:20 | PN.PCM_ITS ---
(1) Ulcer of left lower extremity with fat layer exposed Status: Chronic Current Visit: Yes Code(s): L97.922 - Non-pressure chronic ulcer of unspecified part of left lower leg with fat layer exposed Comment: mixed venous arterial left posterior calf (2) DM2 (diabetes mellitus, type 2) Status: Chronic Current Visit: Yes Code(s): E11.9 - Type 2 diabetes mellitus without complications (3) Morbid obesity with BMI of 45.0-49.9, adult Status: Chronic Current Visit: Yes Code(s): E66.01 - Morbid (severe) obesity due to excess calories; Z68.42 - Body mass index (BMI) 45.0-49.9, adult Type of Wound Chief Complaint: Non healing Ulcers History of Wound: Ms Stapleton is a 73-year-old with past medical history as stated above well-known to the wound center who returns due to nonhealing left lower extremity ulcer. Last seen here at the wound center in March however patient states that she had a recurrence of the ulcer several months ago. She has been doing a wet-to-dry dressing at home with no significant improvement. She is scheduled to have bladder repair however surgery is on hold until she has total healing of the ulcer. She denies chills, fever or otherwise feeling of unwell. History of lymphedema however does not utilize compression stockings due to poor tolerance. She also has a history of diabetes mellitus which she states is very well controlled. Progress of Wound: Stable. No new concerns at this time. - Physical Exam Vital Signs Temp Pulse Resp BP 97.3 F L 66 18 140/59 H 04/07/19 11:31 04/07/19 11:31 04/07/19 11:31 04/07/19 11:31 General: Alert, Oriented x3, Cooperative, No apparent distress HEENT: Atraumatic, Normocephalic Oral: Moist Mucosa Neck: Supple Lungs: Normal air movement Extremities: No cyanosis, Edema Skin: Ulcer/ Wound Wound Measurements and Assessment WC - Nurse 1 - General Ulcer Measurement Start: 03/31/19 11:48 Freq: Status: Active Protocol: Activity Type Activity Date Activity User E-Sign Co-Sign Detail Recorded Client Recorded Date Recorded By Document 04/07/19 11:31 DL [id number] 04/07/19 11:39 DL 04/07/19 11:31 Wound Center Nurse 1 [Ulcer Assessment] #8- LT LATERAL LE CLUSTER -Current Size (cm) - Length 4.2 -Current Size (cm) - Width 0.4 -Current Size (cm) - Depth 0.1 -Total Square Cm 1.68 -Photo Taken No -Exudate Amt None Present -Wound Margin Flat & Intact -Granulation Amt Large (67-100%) -Granulation Quality [place] -Necrosis Amt None Present (0 %) -Structure Exposed N/A -Texture (Cassi-wound Skin Appearance) Localized Edema Scarring -Moisture (Cassi-wound Skin Appearance No Abnormality ) -Color (Cassi-wound Skin Appearance) Hemosiderin Staining -Temperature (Cassi-wound Skin No Abnormality Appearance) (Pt Warm) -Tenderness on Palpation (Cassi-wound No Skin Appearance) -Ulcer Cleansing Wound Cleanser -Foul Odor after Cleansing No -Anesthetic Used 4% Lidocaine Solution #7- LT CALF CLUSTER -Current Size (cm) - Length 7.7 -Current Size (cm) - Width 4.5 -Current Size (cm) - Depth 0.1 -Total Square Cm 34.65 -Photo Taken No -Exudate Amt Small -Exudate Type Serosanguineous -Wound Margin Distinct, Outline Attached -Granulation Amt Large (67-100%) -Granulation Quality Red -Necrosis Amt Small (1-33%) -Necrotic Tissue Type Adherent Slough -Structure Exposed N/A -Moisture (Cassi-wound Skin Appearance Dry/Scaly ) -Color (Cassi-wound Skin Appearance) Hemosiderin Staining -Temperature (Cassi-wound Skin No Abnormality Appearance) (Pt Warm) -Tenderness on Palpation (Cassi-wound No Skin Appearance) -Ulcer Cleansing Rinsed/ Irrigated with Saline -Foul Odor after Cleansing No -Anesthetic Used 4% Lidocaine Solution [Edema Assessment] -Left Calf (cm) 39.5 -Left Ankle (cm) 22 WC - Nurse 2 - General Ulcer CM Notes Start: 03/31/19 11:48 Freq: Status: Active Protocol: Activity Type Activity Date Activity User E-Sign Co-Sign Detail Recorded Client Recorded Date Recorded By Document 04/07/19 12:02 MW [id number] 04/07/19 12:08 MW 04/07/19 12:02 Wound Center Nurse 2 [Procedure/Treatment] #8- LT LATERAL LE CLUSTER -Time 12:04 -Correct Patient Yes -Correct Side, Site, Position Yes -Correct Procedure Yes -Procedure Performed Yes -Type of Procedure Debridement -Clinical Debridement Selective -Post Debridement Size (cm) - Length 0.1 -Post Debridement Size (cm) - Width 0.1 -Post Debridement Size (cm) - Depth 0.1 -Total Square Cm 0.01 -Wound/Ulcer Outcome Not Healed -Ulcer Cleansing Rinsed/ Irrigated with Saline -Foul Odor after Cleansing No -Bioengineered Tissue No -Bleeding Controlled with Pressure -Offloading No -Treatment Response Procedure Tolerated Well #7- LT CALF CLUSTER -Time 12:04 -Correct Patient Yes -Correct Side, Site, Position Yes -Correct Procedure Yes -Procedure Performed Yes -Type of Procedure Debridement -Clinical Debridement Subcutaneous -Post Debridement Size (cm) - Length 7.0 -Post Debridement Size (cm) - Width 4.5 -Post Debridement Size (cm) - Depth 0.1 -Total Square Cm 31.50 -Wound/Ulcer Outcome Not Healed -Ulcer Cleansing Rinsed/ Irrigated with Saline -Foul Odor after Cleansing No -Bioengineered Tissue No -Bleeding Controlled with Pressure -Offloading No -Treatment Response Procedure Tolerated Well [See Physician Procedure note for Specifics] Pain Scale: 0-10 Numeric [Pain] -Is Patient Pain Free? Yes Musculoskeletal: No Muscle Wasting Neurological: Cranial nerves II-XII grossly intact Psych/Mental Status: Normal Affect Debridement Note Post-Debridement Measurements/Treatment WC - Nurse 2 - General Ulcer CM Notes Start: 03/31/19 11:48 Freq: Status: Active Protocol: Activity Type Activity Date Activity User E-Sign Co-Sign Detail Recorded Client Recorded Date Recorded By Document 03/31/19 12:09 DV [id number] 03/31/19 12:13 DV Document 04/07/19 12:02 MW [id number] 04/07/19 12:08 MW 03/31/19 04/07/19 12:09 12:02 Wound Center Nurse 2 #8- LT LATERAL LE CLUSTER -Time 12:10 12:04 -Correct Patient Yes Yes -Correct Side, Site, Position Yes Yes -Correct Procedure Yes Yes -Procedure Performed Yes Yes -Type of Procedure Debridement Debridement -Clinical Debridement Subcutaneous Selective -Post Debridement Size (cm) - Length 0.1 0.1 -Post Debridement Size (cm) - Width 0.1 0.1 -Post Debridement Size (cm) - Depth 0.1 0.1 -Total Square Cm 0.01 0.01 -Wound/Ulcer Outcome Not Healed Not Healed -Ulcer Cleansing Rinsed/ Rinsed/ Irrigated with Irrigated with Saline Saline -Foul Odor after Cleansing No No -Bioengineered Tissue No No -Bleeding Controlled with Pressure Pressure -Offloading No No -Treatment Response Procedure Procedure Tolerated Well Tolerated Well #7- LT CALF CLUSTER -Time 12:12 12:04 -Correct Patient Yes Yes -Correct Side, Site, Position Yes Yes -Correct Procedure Yes Yes -Procedure Performed Yes Yes -Type of Procedure Debridement Debridement -Clinical Debridement Subcutaneous Subcutaneous -Post Debridement Size (cm) - Length 7.0 7.0 -Post Debridement Size (cm) - Width 5.0 4.5 -Post Debridement Size (cm) - Depth 0.1 0.1 -Total Square Cm 35.00 31.50 -Wound/Ulcer Outcome Not Healed Not Healed -Ulcer Cleansing Rinsed/ Rinsed/ Irrigated with Irrigated with Saline Saline -Foul Odor after Cleansing No -Bioengineered Tissue No -Bleeding Controlled with Pressure Pressure -Offloading No No -Treatment Response Procedure Procedure Tolerated Well Tolerated Well Pain Scale: 0-10 Numeric Is Patient Pain Free? Yes Yes Wound debrided: Left lower extremity (Posterior calf ) Wound Grade/Stage: Stage II Type of Debridement: Excisional debridement Anesthesia Used: 4% Lidocaine Solution Depth: Down to and including healthy tissue, in the subcutaneous layer Percentage of wound debrided: 100 Instrument Used: 5mm curette Tissue Removed: Slough and devitalized tissue Severity: Fat Layer Exposed Amount of bleeding with debridement: Mild Bleeding Controlled with: Pressure Patient tolerated procedure well - Additional Wound Wound debrided: Left lower extremity lateral Wound Grade/Stage: Stage II Type of Debridement: Selective debridement Anesthesia Used: 4% Lidocaine Solution Depth: Down to and including healthy tissue Percentage of wound debrided: 100 Instrument Used: 3mm curette Tissue Removed: Devitalized tissue Severity: Limited To Skin Breakdown Amount of bleeding with debridement: Mild Bleeding Controlled with: Pressure Patient tolerated procedure: Patient tolerated procedure well Assessment/Plan Active Problems (Last Reviewed 02/28/19 @ 15:45 by Little Waterman) Morbid obesity with BMI of 45.0-49.9, adult (Chronic) Ulcer of left lower extremity with fat layer exposed (Chronic) mixed venous arterial left posterior calf DM2 (diabetes mellitus, type 2) (Chronic) Assessment: Nonhealing recurrent left lower extremity ulceration secondary to lymphedema and peripheral arterial disease. Diabetes mellitus. Plan: Debridement done as documented above. Procedure was well-tolerated. Continue Jackie with Adaptic over top. Change daily. Single layer Tubigrip for edema management. Complaince strongly encouraged. Patient is not complaint with compression. Optimal blood sugar control and increased protein intake recommended. She was advised to elevate lower extremities when seated and in bed. Slow progression and chronicity of ulcer and chronic venous insufficiency. She will benefit from Apligraf. Will start the apllication process. All her questions were answered and she was advised to call with any further questions or concerns. Follow up in 1 week. This note was generated with [employer] dictation software. It may contain incorrect words, spelling, and punctuation that were not noted in checking the note before signing.
[2019-04-21 11:08] VITALS: BP 149/77; PULSE 65; RESP 18; TEMP 36.9; BMI 38.4
--- NOTE | 2019-04-21 12:51 | PN.PCM_ITS ---
(1) Ulcer of left lower extremity with fat layer exposed Status: Chronic Current Visit: Yes Code(s): L97.922 - Non-pressure chronic ulcer of unspecified part of left lower leg with fat layer exposed Comment: mixed venous arterial left posterior calf (2) DM2 (diabetes mellitus, type 2) Status: Chronic Current Visit: Yes Code(s): E11.9 - Type 2 diabetes mellitus without complications (3) Morbid obesity with BMI of 45.0-49.9, adult Status: Chronic Current Visit: Yes Code(s): E66.01 - Morbid (severe) obesity due to excess calories; Z68.42 - Body mass index (BMI) 45.0-49.9, adult Type of Wound Chief Complaint: Non healing Ulcers History of Wound: Ms Stapleton is a 73-year-old with past medical history as stated above well-known to the wound center who returns due to nonhealing left lower extremity ulcer. Last seen here at the wound center in March however patient states that she had a recurrence of the ulcer several months ago. She has been doing a wet-to-dry dressing at home with no significant improvement. She is scheduled to have bladder repair however surgery is on hold until she has total healing of the ulcer. She denies chills, fever or otherwise feeling of unwell. History of lymphedema however does not utilize compression stockings due to poor tolerance. She also has a history of diabetes mellitus which she states is very well controlled. Progress of Wound: Stable. No new concerns at this time. - Physical Exam Vital Signs Temp Pulse Resp BP 98.4 F 65 18 149/77 H 04/21/19 11:08 04/21/19 11:08 04/21/19 11:08 04/21/19 11:08 General: Alert, Oriented x3, Cooperative, No apparent distress HEENT: Atraumatic, Normocephalic Oral: Moist Mucosa Neck: Supple Lungs: Normal air movement Extremities: No cyanosis, Edema Skin: Ulcer/ Wound Wound Measurements and Assessment WC - Nurse 1 - General Ulcer Measurement Start: 03/31/19 11:48 Freq: Status: Active Protocol: Activity Type Activity Date Activity User E-Sign Co-Sign Detail Recorded Client Recorded Date Recorded By Document 04/21/19 11:08 RB [id number] 04/21/19 11:15 RB 04/21/19 11:08 Wound Center Nurse 1 [Ulcer Assessment] #8- LT LATERAL LE CLUSTER -Combined with other wound No -Current Size (cm) - Length 4.2 -Current Size (cm) - Width 0.4 -Current Size (cm) - Depth 0.1 -Total Square Cm 1.68 -Tunneling No -Undermining/Tunneling No -Circular Undermining No -Exudate Amt Small -Exudate Type Serosanguineous -Wound Margin Distinct, Outline Attached -Granulation Amt Large (67-100%) -Granulation Quality [employer] -Slough/Fibrin Yes -Necrosis Amt Small (1-33%) -Necrotic Tissue Type Adherent Slough -Structure Exposed N/A -Texture (Cassi-wound Skin Appearance) Assessed -Moisture (Cassi-wound Skin Appearance Assessed ) -Color (Cassi-wound Skin Appearance) Assessed -Temperature (Cassi-wound Skin No Abnormality Appearance) (Pt Warm) -Tenderness on Palpation (Cassi-wound No Skin Appearance) -Ulcer Cleansing Rinsed/ Irrigated with Saline -Foul Odor after Cleansing No -Anesthetic Used 4% Lidocaine Solution #7- LT CALF CLUSTER -Combined with other wound No -Current Size (cm) - Length 6.7 -Current Size (cm) - Width 4 -Current Size (cm) - Depth 0.1 -Total Square Cm 26.8 -Tunneling No -Undermining/Tunneling No -Circular Undermining No -Exudate Amt Small -Exudate Type Serosanguineous -Wound Margin Distinct, Outline Attached -Granulation Amt Medium (34-66%) -Granulation Quality [employer] -Slough/Fibrin Yes -Necrosis Amt Small (1-33%) -Necrotic Tissue Type Adherent Slough -Structure Exposed N/A -Texture (Cassi-wound Skin Appearance) Assessed -Moisture (Cassi-wound Skin Appearance Assessed ) -Color (Cassi-wound Skin Appearance) Assessed -Temperature (Cassi-wound Skin No Abnormality Appearance) (Pt Warm) -Tenderness on Palpation (Cassi-wound No Skin Appearance) -Ulcer Cleansing Rinsed/ Irrigated with Saline -Foul Odor after Cleansing No -Anesthetic Used 4% Lidocaine Solution [Edema Assessment] -Lower Limb Edema Present Yes -Left Calf (cm) 41 -Left Ankle (cm) 22.5 WC - Nurse 2 - General Ulcer CM Notes Start: 03/31/19 11:48 Freq: Status: Active Protocol: Activity Type Activity Date Activity User E-Sign Co-Sign Detail Recorded Client Recorded Date Recorded By Document 04/21/19 11:56 MW [id number] 04/21/19 11:59 MW 04/21/19 11:56 Wound Center Nurse 2 [Procedure/Treatment] #8- LT LATERAL LE CLUSTER -Time 11:58 -Correct Patient Yes -Correct Side, Site, Position Yes -Correct Procedure Yes -Procedure Performed No -Post Debridement Size (cm) - Length 0.1 -Post Debridement Size (cm) - Width 0.1 -Post Debridement Size (cm) - Depth 0.1 -Total Square Cm 0.01 -Wound/Ulcer Outcome Not Healed -Ulcer Cleansing Rinsed/ Irrigated with Saline -Foul Odor after Cleansing No -Bleeding Controlled with NA -Offloading No -Treatment Response Procedure Tolerated Well #7- LT CALF CLUSTER -Time 11:58 -Correct Patient Yes -Correct Side, Site, Position Yes -Correct Procedure Yes -Procedure Performed Yes -Type of Procedure Debridement -Clinical Debridement Subcutaneous -Post Debridement Size (cm) - Length 4.5 -Post Debridement Size (cm) - Width 5.0 -Post Debridement Size (cm) - Depth 0.1 -Total Square Cm 22.50 -Wound/Ulcer Outcome Not Healed -Ulcer Cleansing Rinsed/ Irrigated with Saline -Foul Odor after Cleansing No -Bioengineered Tissue No -Bleeding Controlled with Pressure -Offloading No -Treatment Response Procedure Tolerated Well [See Physician Procedure note for Specifics] Pain Scale: 0-10 Numeric [Pain] -Is Patient Pain Free? Yes Musculoskeletal: No Muscle Wasting Neurological: Cranial nerves II-XII grossly intact Psych/Mental Status: Normal Affect Debridement Note Post-Debridement Measurements/Treatment WC - Nurse 2 - General Ulcer CM Notes Start: 03/31/19 11:48 Freq: Status: Active Protocol: Activity Type Activity Date Activity User E-Sign Co-Sign Detail Recorded Client Recorded Date Recorded By Document 03/31/19 12:09 DV [id number] 03/31/19 12:13 DV Document 04/07/19 12:02 MW [id number] 04/07/19 12:08 MW Document 04/21/19 11:56 MW [id number] 04/21/19 11:59 MW 03/31/19 04/07/19 04/21/19 12:09 12:02 11:56 Wound Center Nurse 2 #8- LT LATERAL LE CLUSTER -Time 12:10 12:04 11:58 -Correct Patient Yes Yes Yes -Correct Side, Site, Position Yes Yes Yes -Correct Procedure Yes Yes Yes -Procedure Performed Yes Yes No -Type of Procedure Debridement Debridement -Clinical Debridement Subcutaneous Selective -Post Debridement Size (cm) - Length 0.1 0.1 0.1 -Post Debridement Size (cm) - Width 0.1 0.1 0.1 -Post Debridement Size (cm) - Depth 0.1 0.1 0.1 -Total Square Cm 0.01 0.01 0.01 -Wound/Ulcer Outcome Not Healed Not Healed Not Healed -Ulcer Cleansing Rinsed/ Rinsed/ Rinsed/ Irrigated with Irrigated with Irrigated with Saline Saline Saline -Foul Odor after Cleansing No No No -Bioengineered Tissue No No -Bleeding Controlled with Pressure Pressure NA -Offloading No No No -Treatment Response Procedure Procedure Procedure Tolerated Well Tolerated Well Tolerated Well #7- LT CALF CLUSTER -Time 12:12 12:04 11:58 -Correct Patient Yes Yes Yes -Correct Side, Site, Position Yes Yes Yes -Correct Procedure Yes Yes Yes -Procedure Performed Yes Yes Yes -Type of Procedure Debridement Debridement Debridement -Clinical Debridement Subcutaneous Subcutaneous Subcutaneous -Post Debridement Size (cm) - Length 7.0 7.0 4.5 -Post Debridement Size (cm) - Width 5.0 4.5 5.0 -Post Debridement Size (cm) - Depth 0.1 0.1 0.1 -Total Square Cm 35.00 31.50 22.50 -Wound/Ulcer Outcome Not Healed Not Healed Not Healed -Ulcer Cleansing Rinsed/ Rinsed/ Rinsed/ Irrigated with Irrigated with Irrigated with Saline Saline Saline -Foul Odor after Cleansing No No -Bioengineered Tissue No No -Bleeding Controlled with Pressure Pressure Pressure -Offloading No No No -Treatment Response Procedure Procedure Procedure Tolerated Well Tolerated Well Tolerated Well Pain Scale: 0-10 Numeric Is Patient Pain Free? Yes Yes Yes Wound debrided: Left lower extremity posterior Wound Grade/Stage: Stage II Type of Debridement: Excisional debridement Anesthesia Used: 4% Lidocaine Solution Depth: Down to and including healthy tissue, in the subcutaneous layer Percentage of wound debrided: 100 Instrument Used: 5mm curette Tissue Removed: Slough and devitalized tissue Severity: Fat Layer Exposed Amount of bleeding with debridement: Mild Bleeding Controlled with: Pressure Patient tolerated procedure well Assessment/Plan Active Problems (Last Reviewed 02/28/19 @ 15:45 by Little Waterman) Morbid obesity with BMI of 45.0-49.9, adult (Chronic) Ulcer of left lower extremity with fat layer exposed (Chronic) mixed venous arterial left posterior calf DM2 (diabetes mellitus, type 2) (Chronic) Assessment: Nonhealing recurrent left lower extremity ulceration secondary to lymphedema and peripheral arterial disease. Diabetes mellitus. Plan: Debridement done as documented above. Procedure was well-tolerated. C ontinue Jackie with Adaptic over top. Change daily. Single layer Tubigrip for edema management. Complaince strongly encouraged. Patient is not complaint with compression. Optimal blood sugar control and increased protein intake recommended. She was advised to elevate lower extremities when seated and in bed. Now approved for Apligraf. Will apply at next visit. All her questions were answered and she was advised to call with any further questions or concerns. Follow up in 1 week. This note was generated with [employer] dictation software. It may contain incorrect words, spelling, and punctuation that were not noted in checking the note before signing.
[2019-04-28 12:04] VITALS: BP 158/72; PULSE 65; RESP 18; TEMP 36.5; BMI 38.4
--- NOTE | 2019-04-28 13:23 | PCM.WC.PN ---
(1) Ulcer of left lower extremity with fat layer exposed Status: Chronic Current Visit: Yes Code(s): L97.922 - Non-pressure chronic ulcer of unspecified part of left lower leg with fat layer exposed Comment: mixed venous arterial left posterior calf (2) DM2 (diabetes mellitus, type 2) Status: Chronic Current Visit: Yes Code(s): E11.9 - Type 2 diabetes mellitus without complications (3) Morbid obesity with BMI of 45.0-49.9, adult Status: Chronic Current Visit: Yes Code(s): E66.01 - Morbid (severe) obesity due to excess calories; Z68.42 - Body mass index (BMI) 45.0-49.9, adult Type of Wound Chief Complaint: Non healing Ulcers History of Wound: Ms Stapleton is a 73-year-old with past medical history as stated above well-known to the wound center who returns due to nonhealing left lower extremity ulcer. Last seen here at the wound center in March however patient states that she had a recurrence of the ulcer several months ago. She has been doing a wet-to-dry dressing at home with no significant improvement. She is scheduled to have bladder repair however surgery is on hold until she has total healing of the ulcer. She denies chills, fever or otherwise feeling of unwell. History of lymphedema however does not utilize compression stockings due to poor tolerance. She also has a history of diabetes mellitus which she states is very well controlled. Progress of Wound: Stable. No new concerns at this time. - Physical Exam Vital Signs Temp Pulse Resp BP 97.7 F L 65 18 158/72 H 04/28/19 12:04 04/28/19 12:04 04/28/19 12:04 04/28/19 12:04 General: Alert, Oriented x3, Cooperative, No apparent distress HEENT: Atraumatic, Normocephalic Oral: Moist Mucosa Neck: Supple Lungs: Normal air movement Abdomen: Non Tender, Obese Extremities: Edema Skin: Ulcer/ Wound Wound Measurements and Assessment WC - Nurse 1 - General Ulcer Measurement Start: 03/31/19 11:48 Freq: Status: Active Protocol: Activity Type Activity Date Activity User E-Sign Co-Sign Detail Recorded Client Recorded Date Recorded By Document 04/28/19 12:04 WA [id number] 04/28/19 12:15 WA 04/28/19 12:04 Wound Center Nurse 1 [Ulcer Assessment] #8- LT LATERAL LE CLUSTER -Current Size (cm) - Length 0.1 -Current Size (cm) - Width 0.1 -Current Size (cm) - Depth 0.1 -Total Square Cm 0.01 -Exudate Amt Small -Exudate Type Serosanguineous -Wound Margin Flat & Intact -Granulation Amt Medium (34-66%) -Granulation Quality [place] -Necrosis Amt Medium (34-66%) -Necrotic Tissue Type Adherent Slough -Texture (Cassi-wound Skin Appearance) Assessed -Moisture (Cassi-wound Skin Appearance Assessed ) -Color (Cassi-wound Skin Appearance) Assessed Hemosiderin Staining -Temperature (Cassi-wound Skin No Abnormality Appearance) (Pt Warm) -Tenderness on Palpation (Cassi-wound No Skin Appearance) -Ulcer Cleansing Rinsed/ Irrigated with Saline -Foul Odor after Cleansing No -Anesthetic Used 4% Lidocaine Solution #7- LT CALF CLUSTER -Current Size (cm) - Length 4.5 -Current Size (cm) - Width 4.7 -Current Size (cm) - Depth 0.1 -Total Square Cm 21.15 -Exudate Amt Small -Exudate Type Serosanguineous -Wound Margin Flat & Intact -Granulation Amt Medium (34-66%) -Granulation Quality Pale [place] -Necrosis Amt Medium (34-66%) -Necrotic Tissue Type Adherent Slough -Texture (Cassi-wound Skin Appearance) Assessed Localized Edema -Moisture (Cassi-wound Skin Appearance Assessed ) -Color (Cassi-wound Skin Appearance) Assessed Hemosiderin Staining -Temperature (Cassi-wound Skin No Abnormality Appearance) (Pt Warm) -Tenderness on Palpation (Cassi-wound No Skin Appearance) -Ulcer Cleansing Rinsed/ Irrigated with Saline -Foul Odor after Cleansing No -Anesthetic Used 4% Lidocaine Solution [Edema Assessment] -Left Calf (cm) 42 -Left Ankle (cm) 23 WC - Nurse 2 - General Ulcer CM Notes Start: 03/31/19 11:48 Freq: Status: Active Protocol: Activity Type Activity Date Activity User E-Sign Co-Sign Detail Recorded Client Recorded Date Recorded By Document 04/28/19 12:55 MW [id number] 04/28/19 12:58 MW 04/28/19 12:55 Wound Center Nurse 2 [Procedure/Treatment] #8- LT LATERAL LE CLUSTER -Time 12:55 -Correct Patient Yes -Correct Side, Site, Position Yes -Correct Procedure Yes -Procedure Performed No -Post Debridement Size (cm) - Length 0.1 -Post Debridement Size (cm) - Width 0.1 -Post Debridement Size (cm) - Depth 0.1 -Total Square Cm 0.01 -Wound/Ulcer Outcome Not Healed -Ulcer Cleansing Rinsed/ Irrigated with Saline -Foul Odor after Cleansing No -Bioengineered Tissue No -Bleeding Controlled with Pressure -Offloading No -Treatment Response Procedure Tolerated Well #7- LT CALF CLUSTER -Time 12:56 -Correct Patient Yes -Correct Side, Site, Position Yes -Correct Procedure Yes -Procedure Performed Yes -Type of Procedure Debridement -Clinical Debridement Subcutaneous -Post Debridement Size (cm) - Length 4.5 -Post Debridement Size (cm) - Width 5.0 -Post Debridement Size (cm) - Depth 0.2 -Total Square Cm 22.50 -Wound/Ulcer Outcome Not Healed -Ulcer Cleansing Rinsed/ Irrigated with Saline -Foul Odor after Cleansing No -Bioengineered Tissue Yes -Type of bioengineered Tissue Apligraf -Expiration Date 05/04/19 -Product Lot Number [id number] -Percent Used 100 -Saline Lot Number [id number] -Bleeding Controlled with Pressure -Offloading No -Treatment Response Procedure Tolerated Well [See Physician Procedure note for Specifics] Pain Scale: 0-10 Numeric [Pain] -Is Patient Pain Free? Yes Musculoskeletal: No Muscle Wasting Neurological: Cranial nerves II-XII grossly intact Psych/Mental Status: Normal Affect Debridement Note Post-Debridement Measurements/Treatment WC - Nurse 2 - General Ulcer CM Notes Start: 03/31/19 11:48 Freq: Status: Active Protocol: Activity Type Activity Date Activity User E-Sign Co-Sign Detail Recorded Client Recorded Date Recorded By Document 03/31/19 12:09 DV [id number] 03/31/19 12:13 DV Document 04/07/19 12:02 MW [id number] 04/07/19 12:08 MW Document 04/21/19 11:56 MW [id number] 04/21/19 11:59 MW Document 04/28/19 12:55 MW [id number] 04/28/19 12:58 MW 03/31/19 04/07/19 04/21/19 12:09 12:02 11:56 Wound Center Nurse 2 #8- LT LATERAL LE CLUSTER -Time 12:10 12:04 11:58 -Correct Patient Yes Yes Yes -Correct Side, Site, Position Yes Yes Yes -Correct Procedure Yes Yes Yes -Procedure Performed Yes Yes No -Type of Procedure Debridement Debridement -Clinical Debridement Subcutaneous Selective -Post Debridement Size (cm) - Length 0.1 0.1 0.1 -Post Debridement Size (cm) - Width 0.1 0.1 0.1 -Post Debridement Size (cm) - Depth 0.1 0.1 0.1 -Total Square Cm 0.01 0.01 0.01 -Wound/Ulcer Outcome Not Healed Not Healed Not Healed -Ulcer Cleansing Rinsed/ Rinsed/ Rinsed/ Irrigated with Irrigated with Irrigated with Saline Saline Saline -Foul Odor after Cleansing No No No -Bioengineered Tissue No No -Bleeding Controlled with Pressure Pressure NA -Offloading No No No -Treatment Response Procedure Procedure Procedure Tolerated Well Tolerated Well Tolerated Well #7- LT CALF CLUSTER -Time 12:12 12:04 11:58 -Correct Patient Yes Yes Yes -Correct Side, Site, Position Yes Yes Yes -Correct Procedure Yes Yes Yes -Procedure Performed Yes Yes Yes -Type of Procedure Debridement Debridement Debridement -Clinical Debridement Subcutaneous Subcutaneous Subcutaneous -Post Debridement Size (cm) - Length 7.0 7.0 4.5 -Post Debridement Size (cm) - Width 5.0 4.5 5.0 -Post Debridement Size (cm) - Depth 0.1 0.1 0.1 -Total Square Cm 35.00 31.50 22.50 -Wound/Ulcer Outcome Not Healed Not Healed Not Healed -Ulcer Cleansing Rinsed/ Rinsed/ Rinsed/ Irrigated with Irrigated with Irrigated with Saline Saline Saline -Foul Odor after Cleansing No No -Bioengineered Tissue No No -Type of bioengineered Tissue -Expiration Date -Product Lot Number -Percent Used -Saline Lot Number -Bleeding Controlled with Pressure Pressure Pressure -Offloading No No No -Treatment Response Procedure Procedure Procedure Tolerated Well Tolerated Well Tolerated Well Pain Scale: 0-10 Numeric Is Patient Pain Free? Yes Yes Yes 04/28/19 12:55 Wound Center Nurse 2 #8- LT LATERAL LE CLUSTER -Time 12:55 -Correct Patient Yes -Correct Side, Site, Position Yes -Correct Procedure Yes -Procedure Performed No -Type of Procedure -Clinical Debridement -Post Debridement Size (cm) - Length 0.1 -Post Debridement Size (cm) - Width 0.1 -Post Debridement Size (cm) - Depth 0.1 -Total Square Cm 0.01 -Wound/Ulcer Outcome Not Healed -Ulcer Cleansing Rinsed/ Irrigated with Saline -Foul Odor after Cleansing No -Bioengineered Tissue No -Bleeding Controlled with Pressure -Offloading No -Treatment Response Procedure Tolerated Well #7- LT CALF CLUSTER -Time 12:56 -Correct Patient Yes -Correct Side, Site, Position Yes -Correct Procedure Yes -Procedure Performed Yes -Type of Procedure Debridement -Clinical Debridement Subcutaneous -Post Debridement Size (cm) - Length 4.5 -Post Debridement Size (cm) - Width 5.0 -Post Debridement Size (cm) - Depth 0.2 -Total Square Cm 22.50 -Wound/Ulcer Outcome Not Healed -Ulcer Cleansing Rinsed/ Irrigated with Saline -Foul Odor after Cleansing No -Bioengineered Tissue Yes -Type of bioengineered Tissue Apligraf -Expiration Date 05/04/19 -Product Lot Number [id number] -Percent Used 100 -Saline Lot Number [id number] -Bleeding Controlled with Pressure -Offloading No -Treatment Response Procedure Tolerated Well Pain Scale: 0-10 Numeric Is Patient Pain Free? Yes Wound debrided: Left lower extremity Wound Grade/Stage: Stage III Type of Debridement: Excisional debridement Anesthesia Used: 4% Lidocaine Solution Depth: Down to and including healthy tissue, in the subcutaneous layer Percentage of wound debrided: 100 Instrument Used: 5mm curette Tissue Removed: Slough and devitalized tissue Severity: Fat Layer Exposed Amount of bleeding with debridement: Mild Bleeding Controlled with: Pressure Patient tolerated procedure well Assessment/Plan Active Problems (Last Reviewed 02/28/19 @ 15:45 by Little Waterman) Morbid obesity with BMI of 45.0-49.9, adult (Chronic) Ulcer of left lower extremity with fat layer exposed (Chronic) mixed venous arterial left posterior calf DM2 (diabetes mellitus, type 2) (Chronic) Assessment: Nonhealing recurrent left lower extremity ulceration secondary to lymphedema and peripheral arterial disease. Diabetes mellitus. Plan: Debridement done as documented above. Procedure was well-tolerated. Initial application of Apligraf done today using 100% of product. Wound veil over top after moistening with saline. Steri-Strips to secure. Leave on for 2 weeks. Single layer Tubigrip for edema management. Complaince strongly encouraged. Patient is not complaint with compression. Optimal blood sugar control and increased protein intake recommended. She was advised to elevate lower extremities when seated and in bed. All her questions were answered and she was advised to call with any further questions or concerns. Follow up in 1 week. This note was generated with [employer] dictation software. It may contain incorrect words, spelling, and punctuation that were not noted in checking the note before signing.
== END 2019-04-29 23:59 ==
LOC: WC 11:30
PROVIDERS: Family Provider Nurse Practitioner; PCP Nurse Practitioner; Visit Provider Internal Medicine
DX: E11.622 Type 2 diabetes mellitus with other skin ulcer (principal); L97.222 Non-pressure chronic ulcer of left calf with fat layer exposed; E66.01 Morbid (severe) obesity due to excess calories; E11.51 Type 2 diabetes mellitus with diabetic peripheral angiopathy without gangrene; I89.0 Lymphedema, not elsewhere classified; Z68.38 Body mass index [BMI] 38.0-38.9, adult
CPT/HCPCS: 11042; 11045; 15271; 15272; Q4101

== ENCOUNTER → 2019-04-29 15:02 | Outpatient (CLI) | payer MEDICARE, SELFPAY ==
[2016-12-05 15:47] VITALS: BMI 35.6
[2019-04-28 12:04] VITALS: BMI 38.4
[2019-04-29 17:28] LABS: Absolute Lymphocyte Count 2.73 X10^3/ul (0.83-4.51); Absolute Neutrophil Count 8.5 X10^3/uL (2.0-7.7); Basophil# 0.05 X10^3/uL; Basophil% 0.4 % (0-1); Eosinophil# 0.24 X10^3/uL; Hematocrit 32.3 % (37-47); Hemoglobin 9.5 g/dl (12.0-15.0); Lymphocyte # 2.73 X10^3/ul (4.0); Lymphocyte % 22.5 % (19-41); Mean Corp Hgb Conc 29.4 g/gl (32-36); Mean Corpuscular Hgb 27.8 pg (27.0-32.0); Mean Corpuscular Volume 94.4 fL (81-99); Mean Platelet Vol. 11.3 fl (6.2-12.0); Monocyte# 0.59 X10^3/uL; Monocyte% 4.9 % (0-10); Neutrophil # 8.48 X10^3/uL (2.7-7.7); Neutrophil % 69.9 % (47-70); Platelet Count 229 K/mm3 (150-450); RBC Distribution Width CV 16.8 % (11.6-14.6); RBC Distribution Width SD 55.5 fl (35.1-43.9); Red Blood Count 3.42 M/mm3 (4.2-5.4); White Blood Count 12.1 K/mm3 (4.4-11.0)
[2019-04-29 17:34] LABS: POSITIVE COUNT NO; POSITIVE DIFFERENTIAL NO; POSITIVE MORPHOLOGY NO
[2019-04-29 17:51] LABS: ALB/GLOB Ratio 0.7 RATIO (0.9-2.4); AST(SGOT) 14 U/L (15-37); Alanine Aminotransfer ALT/SGPT 13 U/L (13-56); Albumin, Serum 2.9 g/dL (3.2-5.0); Alkaline Phosphatase 114 U/L (45-117); Anion Gap 8 (5-15); BUN 32 mg/dL (7-18); BUN/Creat Ratio 18.5 RATIO (10-20); Chloride 105 mmol/L (98-107); Creatinine, Serum 1.73 mg/dL (0.55-1.02); EST Glomerular Filtration Rate 31 mL/min (>60); Est Glom Filt Rate - Afr Amer 37 mL/min (>60); Globulin 4.1 g/dL (2.2-4.2); Glucose 138 mg/dL (74-106); Sodium Level 140 mmol/L (136-145); Uric Acid 3.8 mg/dL (2.6-6.0)
== END ==
PROVIDERS: Family Provider Nurse Practitioner; PCP Nurse Practitioner; Referring Provider Internal Medicine Rheumatology; Visit Provider Internal Medicine Rheumatology
DX: M06.00 Rheumatoid arthritis without rheumatoid factor, unspecified site (principal); M10.00 Idiopathic gout, unspecified site; M17.0 Bilateral primary osteoarthritis of knee; M21.40 Flat foot [pes planus] (acquired), unspecified foot; I10 Essential (primary) hypertension; E78.5 Hyperlipidemia, unspecified; I26.99 Other pulmonary embolism without acute cor pulmonale; Z86.718 Personal history of other venous thrombosis and embolism
CPT/HCPCS: 36415; 80053; 84550; 85025

== ENCOUNTER 2019-05-26 11:45 | Outpatient (RCR) | payer MEDICARE, SELFPAY ==
[2016-12-05 15:47] VITALS: BMI 35.6
[2019-04-30 01:06] VITALS: BP 158/72; PULSE 65; RESP 18; TEMP 36.5
[2019-05-04 11:32] VITALS: BP 179/86; PULSE 63; RESP 16; TEMP 36.6; BMI 38.4
--- NOTE | 2019-05-04 11:37 | NURSING ---
apligraph/wound veil/steris left intact.
--- NOTE | 2019-05-04 11:59 | PCM.WC.PN ---
(1) Ulcer of left lower extremity with fat layer exposed Status: Chronic Current Visit: Yes Code(s): L97.922 - Non-pressure chronic ulcer of unspecified part of left lower leg with fat layer exposed Comment: mixed venous arterial left posterior calf (2) Lymphedema Status: Chronic Current Visit: Yes Code(s): I89.0 - Lymphedema, not elsewhere classified (3) Cellulitis Status: Acute Current Visit: Yes Qualifiers: Site of cellulitis of extremity: lower extremity Laterality: left Code(s): L03.90 - Cellulitis, unspecified (4) PVD (peripheral vascular disease) Status: Chronic Current Visit: No Code(s): I73.9 - Peripheral vascular disease, unspecified (5) 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 Last seen here at the wound center in March however patient states that she had a recurrence of the ulcer several months ago. She has been doing a wet-to-dry dressing at home with no significant improvement. She is scheduled to have bladder repair however surgery is on hold until she has total healing of the ulcer. She denies chills, fever or otherwise feeling of unwell. History of lymphedema however does not utilize compression stockings due to poor tolerance. She also has a history of diabetes mellitus which she states is very well controlled. Progress of Wound: Apligraf applied last week without concerns. Presents today for ulcer check. Dressing in place. However area of redness and tenderness about dressing. - Physical Exam Vital Signs Temp Pulse Resp BP 97.8 F 63 16 179/86 H 05/04/19 11:32 05/04/19 11:32 05/04/19 11:32 05/04/19 11:32 General: Alert, Oriented x3, Cooperative, No apparent distress HEENT: Atraumatic, Normocephalic Oral: Moist Mucosa Neck: Supple Lungs: Normal air movement Extremities: No cyanosis Skin: Ulcer/ Wound Wound Measurements and Assessment WC - Nurse 1 - General Ulcer Measurement Start: 05/04/19 11:31 Freq: Status: Active Protocol: Activity Type Activity Date Activity User E-Sign Co-Sign Detail Recorded Client Recorded Date Recorded By Document 05/04/19 11:32 DL [id number] 05/04/19 11:36 DL 05/04/19 11:32 Wound Center Nurse 1 [Ulcer Assessment] #8- LT LATERAL LE CLUSTER -Combined with other wound No -Current Size (cm) - Length 0.1 -Current Size (cm) - Width 0.1 -Current Size (cm) - Depth 0.1 -Total Square Cm 0.01 #7- LT CALF CLUSTER -Combined with other wound No -Current Size (cm) - Length 0.1 -Current Size (cm) - Width 0.1 -Current Size (cm) - Depth 0.1 -Total Square Cm 0.01 -Photo Taken No [Edema Assessment] -Lower Limb Edema Present Yes -Left Calf (cm) 42 -Left Ankle (cm) 22 WC - Nurse 2 - General Ulcer CM Notes Start: 05/04/19 11:31 Freq: Status: Active Protocol: Activity Type Activity Date Activity User E-Sign Co-Sign Detail Recorded Client Recorded Date Recorded By Document 05/04/19 11:54 MW [id number] 05/04/19 11:55 MW 05/04/19 11:54 Wound Center Nurse 2 [Procedure/Treatment] #8- LT LATERAL LE CLUSTER -Time 11:54 -Correct Patient Yes -Correct Side, Site, Position Yes -Correct Procedure Yes -Procedure Performed No -Wound/Ulcer Outcome Not Healed -Ulcer Cleansing Not Cleansed -Foul Odor after Cleansing No -Bleeding Controlled with NA -Offloading No -Treatment Response Procedure Tolerated Well #7- LT CALF CLUSTER -Time 11:54 -Correct Patient Yes -Correct Side, Site, Position Yes -Correct Procedure Yes -Procedure Performed No -Wound/Ulcer Outcome Not Healed -Ulcer Cleansing Not Cleansed -Foul Odor after Cleansing No -Bioengineered Tissue No -Bleeding Controlled with NA -Offloading No -Treatment Response Procedure Tolerated Well [See Physician Procedure note for Specifics] Pain Scale: 0-10 Numeric [Pain] -Is Patient Pain Free? Yes Musculoskeletal: No Muscle Wasting Neurological: Cranial nerves II-XII grossly intact Psych/Mental Status: Normal Affect Debridement Note Post-Debridement Measurements/Treatment WC - Nurse 2 - General Ulcer CM Notes Start: 05/04/19 11:31 Freq: Status: Active Protocol: Activity Type Activity Date Activity User E-Sign Co-Sign Detail Recorded Client Recorded Date Recorded By Document 05/04/19 11:54 MW [id number] 05/04/19 11:55 MW 05/04/19 11:54 Wound Center Nurse 2 #8- LT LATERAL LE CLUSTER -Time 11:54 -Correct Patient Yes -Correct Side, Site, Position Yes -Correct Procedure Yes -Procedure Performed No -Wound/Ulcer Outcome Not Healed -Ulcer Cleansing Not Cleansed -Foul Odor after Cleansing No -Bleeding Controlled with NA -Offloading No -Treatment Response Procedure Tolerated Well #7- LT CALF CLUSTER -Time 11:54 -Correct Patient Yes -Correct Side, Site, Position Yes -Correct Procedure Yes -Procedure Performed No -Wound/Ulcer Outcome Not Healed -Ulcer Cleansing Not Cleansed -Foul Odor after Cleansing No -Bioengineered Tissue No -Bleeding Controlled with NA -Offloading No -Treatment Response Procedure Tolerated Well Pain Scale: 0-10 Numeric Is Patient Pain Free? Yes No debridement was completed today Assessment/Plan Active Problems (Last Reviewed 02/28/19 @ 15:45 by Little Waterman) Cellulitis (Acute) Ulcer of left lower extremity with fat layer exposed (Chronic) mixed venous arterial left posterior calf Lymphedema (Chronic) Assessment: Nonhealing recurrent left lower extremity ulceration secondary to lymphedema and peripheral arterial disease. Diabetes mellitus. Plan: No debridement completed today. Dressing reinforced with Steri-Strips. Started on Augmentin due to concerns for sandra-ulcer cellulitis. Compliance encouraged. Single layer Tubigrip for edema management. Complaince strongly encouraged. Patient is not complaint with compression. Optimal blood sugar control and increased protein intake recommended. She was advised to elevate lower extremities when seated and in bed. All her questions were answered and she was advised to call with any further questions or concerns. Follow up in [address] Crockett. This note was generated with [employer] dictation software. It may contain incorrect words, spelling, and punctuation that were not noted in checking the note before signing.
--- NOTE | 2019-05-04 12:02 | PN.PCM_ITS ---
(1) Ulcer of left lower extremity with fat layer exposed Status: Chronic Current Visit: Yes Code(s): L97.922 - Non-pressure chronic ulcer of unspecified part of left lower leg with fat layer exposed Comment: mixed venous arterial left posterior calf (2) Lymphedema Status: Chronic Current Visit: Yes Code(s): I89.0 - Lymphedema, not elsewhere classified (3) Cellulitis Status: Acute Current Visit: Yes Qualifiers: Site of cellulitis of extremity: lower extremity Laterality: left Code(s): L03.90 - Cellulitis, unspecified (4) PVD (peripheral vascular disease) Status: Chronic Current Visit: No Code(s): I73.9 - Peripheral vascular disease, unspecified (5) 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 Last seen here at the wound center in March however patient states that she had a recurrence of the ulcer several months ago. She has been doing a wet-to-dry dressing at home with no significant improvement. She is scheduled to have bladder repair however surgery is on hold until she has total healing of the ulcer. She denies chills, fever or otherwise feeling of unwell. History of lymphedema however does not utilize compression stockings due to poor tolerance. She also has a history of diabetes mellitus which she states is very well controlled. Progress of Wound: Apligraf applied last week without concerns. Presents today for ulcer check. Dressing in place. However area of redness and tenderness about dressing. - Physical Exam Vital Signs Temp Pulse Resp BP 97.8 F 63 16 179/86 H 05/04/19 11:32 05/04/19 11:32 05/04/19 11:32 05/04/19 11:32 General: Alert, Oriented x3, Cooperative, No apparent distress HEENT: Atraumatic, Normocephalic Oral: Moist Mucosa Neck: Supple Lungs: Normal air movement Extremities: No cyanosis Skin: Ulcer/ Wound Wound Measurements and Assessment WC - Nurse 1 - General Ulcer Measurement Start: 05/04/19 11:31 Freq: Status: Active Protocol: Activity Type Activity Date Activity User E-Sign Co-Sign Detail Recorded Client Recorded Date Recorded By Document 05/04/19 11:32 DL [id number] 05/04/19 11:36 DL 05/04/19 11:32 Wound Center Nurse 1 [Ulcer Assessment] #8- LT LATERAL LE CLUSTER -Combined with other wound No -Current Size (cm) - Length 0.1 -Current Size (cm) - Width 0.1 -Current Size (cm) - Depth 0.1 -Total Square Cm 0.01 #7- LT CALF CLUSTER -Combined with other wound No -Current Size (cm) - Length 0.1 -Current Size (cm) - Width 0.1 -Current Size (cm) - Depth 0.1 -Total Square Cm 0.01 -Photo Taken No [Edema Assessment] -Lower Limb Edema Present Yes -Left Calf (cm) 42 -Left Ankle (cm) 22 WC - Nurse 2 - General Ulcer CM Notes Start: 05/04/19 11:31 Freq: Status: Active Protocol: Activity Type Activity Date Activity User E-Sign Co-Sign Detail Recorded Client Recorded Date Recorded By Document 05/04/19 11:54 MW [id number] 05/04/19 11:55 MW 05/04/19 11:54 Wound Center Nurse 2 [Procedure/Treatment] #8- LT LATERAL LE CLUSTER -Time 11:54 -Correct Patient Yes -Correct Side, Site, Position Yes -Correct Procedure Yes -Procedure Performed No -Wound/Ulcer Outcome Not Healed -Ulcer Cleansing Not Cleansed -Foul Odor after Cleansing No -Bleeding Controlled with NA -Offloading No -Treatment Response Procedure Tolerated Well #7- LT CALF CLUSTER -Time 11:54 -Correct Patient Yes -Correct Side, Site, Position Yes -Correct Procedure Yes -Procedure Performed No -Wound/Ulcer Outcome Not Healed -Ulcer Cleansing Not Cleansed -Foul Odor after Cleansing No -Bioengineered Tissue No -Bleeding Controlled with NA -Offloading No -Treatment Response Procedure Tolerated Well [See Physician Procedure note for Specifics] Pain Scale: 0-10 Numeric [Pain] -Is Patient Pain Free? Yes Musculoskeletal: No Muscle Wasting Neurological: Cranial nerves II-XII grossly intact Psych/Mental Status: Normal Affect Debridement Note Post-Debridement Measurements/Treatment WC - Nurse 2 - General Ulcer CM Notes Start: 05/04/19 11:31 Freq: Status: Active Protocol: Activity Type Activity Date Activity User E-Sign Co-Sign Detail Recorded Client Recorded Date Recorded By Document 05/04/19 11:54 MW [id number] 05/04/19 11:55 MW 05/04/19 11:54 Wound Center Nurse 2 #8- LT LATERAL LE CLUSTER -Time 11:54 -Correct Patient Yes -Correct Side, Site, Position Yes -Correct Procedure Yes -Procedure Performed No -Wound/Ulcer Outcome Not Healed -Ulcer Cleansing Not Cleansed -Foul Odor after Cleansing No -Bleeding Controlled with NA -Offloading No -Treatment Response Procedure Tolerated Well #7- LT CALF CLUSTER -Time 11:54 -Correct Patient Yes -Correct Side, Site, Position Yes -Correct Procedure Yes -Procedure Performed No -Wound/Ulcer Outcome Not Healed -Ulcer Cleansing Not Cleansed -Foul Odor after Cleansing No -Bioengineered Tissue No -Bleeding Controlled with NA -Offloading No -Treatment Response Procedure Tolerated Well Pain Scale: 0-10 Numeric Is Patient Pain Free? Yes No debridement was completed today Assessment/Plan Active Problems (Last Reviewed 02/28/19 @ 15:45 by Little Waterman) Cellulitis (Acute) Ulcer of left lower extremity with fat layer exposed (Chronic) mixed venous arterial left posterior calf Lymphedema (Chronic) Assessment: Nonhealing recurrent left lower extremity ulceration secondary to lymphedema and peripheral arterial disease. Diabetes mellitus. Plan: No debridement completed today. Dressing reinforced with Steri-Strips. Started on Augmentin due to concerns for sandra-ulcer cellulitis. Compliance encouraged. Single layer Tubigrip for edema management. Complaince strongly encouraged. Patient is not complaint with compression. Optimal blood sugar co ntrol and increased protein intake recommended. She was advised to elevate lower extremities when seated and in bed. All her questions were answered and she was advised to call with any further questions or concerns. Follow up in [address] Crockett. This note was generated with [employer] dictation software. It may contain incorrect words, spelling, and punctuation that were not noted in checking the note before signing.
[2019-05-12 11:14] VITALS: BP 152/64; PULSE 66; RESP 18; TEMP 36.8; BMI 38.4
--- NOTE | 2019-05-12 11:42 | PCM.WC.PN ---
(1) Ulcer of left lower extremity with fat layer exposed Status: Chronic Current Visit: Yes Code(s): L97.922 - Non-pressure chronic ulcer of unspecified part of left lower leg with fat layer exposed Comment: mixed venous arterial left posterior calf (2) Lymphedema Status: Chronic Current Visit: Yes Code(s): I89.0 - Lymphedema, not elsewhere classified (3) PVD (peripheral vascular disease) Status: Chronic Current Visit: No Code(s): I73.9 - Peripheral vascular disease, unspecified (4) DM2 (diabetes mellitus, type 2) Status: Chronic Current Visit: No Code(s): E11.9 - Type 2 diabetes mellitus without complications Type of Wound Chief Complaint: Non healing Ulcers History of Wound: Ms Stapleton is a 73-year-old with past medical history as stated above well-known to the wound center who returns due to nonhealing left lower extremity ulcer. Last seen here at the wound center in March however patient states that she had a recurrence of the ulcer several months ago. She has been doing a wet-to-dry dressing at home with no significant improvement. She is scheduled to have bladder repair however surgery is on hold until she has total healing of the ulcer. She denies chills, fever or otherwise feeling of unwell. History of lymphedema however does not utilize compression stockings due to poor tolerance. She also has a history of diabetes mellitus which she states is very well controlled. Progress of Wound: Patient's ulcer site improving. No signs or symptoms of infection noted. - Physical Exam Vital Signs Temp Pulse Resp BP 98.2 F 66 18 152/64 H 05/12/19 11:14 05/12/19 11:14 05/12/19 11:14 05/12/19 11:14 General: Alert, Oriented x3, Cooperative, No apparent distress Extremities: Capillary Refill Less than 3 Seconds, No Calf Tenderness, Edema Skin: Ulcer/ Wound Wound Measurements and Assessment WC - Nurse 1 - General Ulcer Measurement Start: 05/04/19 11:31 Freq: Status: Active Protocol: Activity Type Activity Date Activity User E-Sign Co-Sign Detail Recorded Client Recorded Date Recorded By Document 05/12/19 11:14 PA [id number] 05/12/19 11:20 PA 05/12/19 11:14 Wound Center Nurse 1 [Ulcer Assessment] #8- LT LATERAL LE CLUSTER -Current Size (cm) - Length 0.1 -Current Size (cm) - Width 0.1 -Current Size (cm) - Depth 0.1 -Total Square Cm 0.01 #7- LT CALF posterior cluster -Current Size (cm) - Length 4.0 -Current Size (cm) - Width 5.2 -Current Size (cm) - Depth 0.1 -Total Square Cm 20.80 -Exudate Amt Medium -Exudate Type Serosanguineous -Wound Margin Flat & Intact -Granulation Amt Medium (34-66%) -Granulation Quality Pale [place] -Necrosis Amt Medium (34-66%) -Necrotic Tissue Type Adherent Slough -Texture (Cassi-wound Skin Appearance) Assessed Localized Edema -Moisture (Cassi-wound Skin Appearance Assessed ) -Color (Cassi-wound Skin Appearance) Assessed Hemosiderin Staining -Temperature (Cassi-wound Skin No Abnormality Appearance) (Pt Warm) -Tenderness on Palpation (Cassi-wound No Skin Appearance) -Ulcer Cleansing Wound Cleanser -Foul Odor after Cleansing Yes, Due to Product Use -Anesthetic Used 5% Lidocaine Gel [Edema Assessment] -Left Calf (cm) 41.2 -Left Ankle (cm) 25 Musculoskeletal: No Tenderness to Palpation of Joints or Extremities Psych/Mental Status: Normal Affect, Appropriate Debridement Note Post-Debridement Measurements/Treatment WC - Nurse 2 - General Ulcer CM Notes Start: 05/04/19 11:31 Freq: Status: Active Protocol: Activity Type Activity Date Activity User E-Sign Co-Sign Detail Recorded Client Recorded Date Recorded By Document 05/04/19 11:54 MW [id number] 05/04/19 11:55 MW 05/04/19 11:54 Wound Center Nurse 2 #8- LT LATERAL LE CLUSTER -Time 11:54 -Correct Patient Yes -Correct Side, Site, Position Yes -Correct Procedure Yes -Procedure Performed No -Wound/Ulcer Outcome Not Healed -Ulcer Cleansing Not Cleansed -Foul Odor after Cleansing No -Bleeding Controlled with NA -Offloading No -Treatment Response Procedure Tolerated Well #7- LT CALF posterior cluster -Time 11:54 -Correct Patient Yes -Correct Side, Site, Position Yes -Correct Procedure Yes -Procedure Performed No -Wound/Ulcer Outcome Not Healed -Ulcer Cleansing Not Cleansed -Foul Odor after Cleansing No -Bioengineered Tissue No -Bleeding Controlled with NA -Offloading No -Treatment Response Procedure Tolerated Well Pain Scale: 0-10 Numeric Is Patient Pain Free? Yes Wound debrided: Left posterior calf Laterality: Left Type of Debridement: Excisional debridement Anesthesia Used: 4% Lidocaine Solution Depth: in the subcutaneous layer Percentage of wound debrided: 100 Instrument Used: 5mm curette Tissue Removed: Adherent slough, fibrin, biofilm Severity: Fat Layer Exposed Amount of bleeding with debridement: Mild Bleeding Controlled with: Pressure Patient tolerated procedure well Assessment/Plan Active Problems (Last Reviewed 02/28/19 @ 15:45 by Little Waterman) Cellulitis (Acute) Ulcer of left lower extremity with fat layer exposed (Chronic) mixed venous arterial left posterior calf Lymphedema (Chronic) Assessment: Nonhealing recurrent left lower extremity ulceration secondary to lymphedema and peripheral arterial disease. Diabetes mellitus. Plan: This patient was examined and evaluated today as a courtesy visit for Dr. Enriquez. Subcutaneous excisional debridement was performed as noted in the clinical panel. Once complete the ulcer site was carefully cleansed and then Apligraf #2 was applied to the base followed by Steri-Strips, wound veil, another set of Steri-Strips, and a dry sterile dressing. Single layer Tubigrip for edema management. Complaince strongly encouraged. Patient is not complaint with compression. Optimal blood sugar control and increased protein intake recommended. She was advised to elevate lower extremities when seated and in bed. All her questions were answered and she was advised to call with any further questions or concerns. Follow up in 2 weeks for ulcer check, but was instructed to follow-up sooner if needed for any reason before then. This note was generated with [employer] software. It may contain incorrect words, spelling, and punctuation that were not noted in checking the note before signing.
--- NOTE | 2019-05-12 11:47 | PN.PCM_ITS ---
(1) Ulcer of left lower extremity with fat layer exposed Status: Chronic Current Visit: Yes Code(s): L97.922 - Non-pressure chronic ulcer of unspecified part of left lower leg with fat layer exposed Comment: mixed venous arterial left posterior calf (2) Lymphedema Status: Chronic Current Visit: Yes Code(s): I89.0 - Lymphedema, not elsewhere classified (3) PVD (peripheral vascular disease) Status: Chronic Current Visit: No Code(s): I73.9 - Peripheral vascular disease, unspecified (4) DM2 (diabetes mellitus, type 2) Status: Chronic Current Visit: No Code(s): E11.9 - Type 2 diabetes mellitus without complications Type of Wound Chief Complaint: Non healing Ulcers History of Wound: Ms Stapleton is a 73-year-old with past medical history as stated above well-known to the wound center who returns due to nonhealing left lower extremity ulcer. Last seen here at the wound center in March however patient states that she had a recurrence of the ulcer several months ago. She has been doing a wet-to-dry dressing at home with no significant improvement. She is scheduled to have bladder repair however surgery is on hold until she has total healing of the ulcer. She denies chills, fever or otherwise feeling of unwell. History of lymphedema however does not utilize compression stockings due to poor tolerance. She also has a history of diabetes mellitus which she states is very well controlled. Progress of Wound: Patient's ulcer site improving. No signs or symptoms of infection noted. - Physical Exam Vital Signs Temp Pulse Resp BP 98.2 F 66 18 152/64 H 05/12/19 11:14 05/12/19 11:14 05/12/19 11:14 05/12/19 11:14 General: Alert, Oriented x3, Cooperative, No apparent distress Extremities: Capillary Refill Less than 3 Seconds, No Calf Tenderness, Edema Skin: Ulcer/ Wound Wound Measurements and Assessment WC - Nurse 1 - General Ulcer Measurement Start: 05/04/19 11:31 Freq: Status: Active Protocol: Activity Type Activity Date Activity User E-Sign Co-Sign Detail Recorded Client Recorded Date Recorded By Document 05/12/19 11:14 [place] [id number] 05/12/19 11:20 [place] 05/12/19 11:14 Wound Center Nurse 1 [Ulcer Assessment] #8- LT LATERAL LE CLUSTER -Current Size (cm) - Length 0.1 -Current Size (cm) - Width 0.1 -Current Size (cm) - Depth 0.1 -Total Square Cm 0.01 #7- LT CALF posterior cluster -Current Size (cm) - Length 4.0 -Current Size (cm) - Width 5.2 -Current Size (cm) - Depth 0.1 -Total Square Cm 20.80 -Exudate Amt Medium -Exudate Type Serosanguineous -Wound Margin Flat & Intact -Granulation Amt Medium (34-66%) -Granulation Quality Pale [place] -Necrosis Amt Medium (34-66%) -Necrotic Tissue Type Adherent Slough -Texture (Cassi-wound Skin Appearance) Assessed Localized Edema -Moisture (Cassi-wound Skin Appearance Assessed ) -Color (Cassi-wound Skin Appearance) Assessed Hemosiderin Staining -Temperature (Cassi-wound Skin No Abnormality Appearance) (Pt Warm) -Tenderness on Palpation (Cassi-wound No Skin Appearance) -Ulcer Cleansing Wound Cleanser -Foul Odor after Cleansing Yes, Due to Product Use -Anesthetic Used 5% Lidocaine Gel [Edema Assessment] -Left Calf (cm) 41.2 -Left Ankle (cm) 25 Musculoskeletal: No Tenderness to Palpation of Joints or Extremities Psych/Mental Status: Normal Affect, Appropriate Debridement Note Post-Debridement Measurements/Treatment WC - Nurse 2 - General Ulcer CM Notes Start: 05/04/19 11:31 Freq: Status: Active Protocol: Activity Type Activity Date Activity User E-Sign Co-Sign Detail Recorded Client Recorded Date Recorded By Document 05/04/19 11:54 MW [id number] 05/04/19 11:55 MW 05/04/19 11:54 Wound Center Nurse 2 #8- LT LATERAL LE CLUSTER -Time 11:54 -Correct Patient Yes -Correct Side, Site, Position Yes -Correct Procedure Yes -Procedure Performed No -Wound/Ulcer Outcome Not Healed -Ulcer Cleansing Not Cleansed -Foul Odor after Cleansing No -Bleeding Controlled with NA -Offloading No -Treatment Response Procedure Tolerated Well #7- LT CALF posterior cluster -Time 11:54 -Correct Patient Yes -Correct Side, Site, Position Yes -Correct Procedure Yes -Procedure Performed No -Wound/Ulcer Outcome Not Healed -Ulcer Cleansing Not Cleansed -Foul Odor after Cleansing No -Bioengineered Tissue No -Bleeding Controlled with NA -Offloading No -Treatment Response Procedure Tolerated Well Pain Scale: 0-10 Numeric Is Patient Pain Free? Yes Wound debrided: Left posterior calf Laterality: Left Type of Debridement: Excisional debridement Anesthesia Used: 4% Lidocaine Solution Depth: in the subcutaneous layer Percentage of wound debrided: 100 Instrument Used: 5mm curette Tissue Removed: Adherent slough, fibrin, biofilm Severity: Fat Layer Exposed Amount of bleeding with debridement: Mild Bleeding Controlled with: Pressure Patient tolerated procedure well Assessment/Plan Active Problems (Last Reviewed 02/28/19 @ 15:45 by Little Waterman) Cellulitis (Acute) Ulcer of left lower extremity with fat layer exposed (Chronic) mixed venous arterial left posterior calf Lymphedema (Chronic) Assessment: Nonhealing recurrent left lower extremity ulceration secondary to lymphedema and peripheral arterial disease. Diabetes mellitus. Plan: This patient was examined and evaluated today as a courtesy visit for Dr. Enriquez. Subcutaneous excisional debridement was performed as noted in the clinical panel. Once complete the ulcer site was carefully cleansed and then A pligraf #2 was applied to the base followed by Steri-Strips, wound veil, another set of Steri-Strips, and a dry sterile dressing. Single layer Tubigrip for edema management. Complaince strongly encouraged. Patient is not complaint with compression. Optimal blood sugar control and increased protein intake recommended. She was advised to elevate lower extremities when seated and in bed. All her questions were answered and she was advised to call with any further questions or concerns. Follow up in 2 weeks for ulcer check, but was instructed to follow-up sooner if needed for any reason before then. This note was generated with [employer] dictation software. It may contain incorrect words, spelling, and punctuation that were not noted in checking the note before signing.
[2019-05-26 11:38] VITALS: BP 145/68; PULSE 59; RESP 18; TEMP 36.2; BMI 38.4
--- NOTE | 2019-05-26 19:30 | PN.PCM_ITS ---
(1) Ulcer of left lower extremity with fat layer exposed Status: Chronic Current Visit: Yes Code(s): L97.922 - Non-pressure chronic ulcer of unspecified part of left lower leg with fat layer exposed Comment: mixed venous arterial left posterior calf (2) Lymphedema Status: Chronic Current Visit: Yes Code(s): I89.0 - Lymphedema, not elsewhere classified (3) Cellulitis Status: Acute Current Visit: Yes Qualifiers: Site of cellulitis of extremity: lower extremity Laterality: left Code(s): L03.90 - Cellulitis, unspecified (4) PVD (peripheral vascular disease) Status: Chronic Current Visit: No Code(s): I73.9 - Peripheral vascular disease, unspecified (5) 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 Last seen here at the wound center in March however patient states that she had a recurrence of the ulcer several months ago. She has been doing a wet-to-dry dressing at home with no significant improvement. She is scheduled to have bladder repair however surgery is on hold until she has total healing of the ulcer. She denies chills, fever or otherwise feeling of unwell. History of lymphedema however does not utilize compression stockings du e to poor tolerance. She also has a history of diabetes mellitus which she states is very well controlled. Progress of Wound: Stable. No concerns at this time. - Physical Exam Vital Signs Temp Pulse Resp BP 97.2 F L 59 L 18 145/68 H 05/26/19 11:38 05/26/19 11:38 05/26/19 11:38 05/26/19 11:38 General: Alert, Oriented x3, Cooperative, No apparent distress HEENT: Atraumatic, Normocephalic Oral: Moist Mucosa Neck: Supple Lungs: Normal air movement Abdomen: Non Tender, Obese Extremities: No cyanosis, Edema Skin: Ulcer/ Wound Wound Measurements and Assessment WC - Nurse 1 - General Ulcer Measurement Start: 05/04/19 11:31 Freq: Status: Active Protocol: Activity Type Activity Date Activity User E-Sign Co-Sign Detail Recorded Client Recorded Date Recorded By Document 05/26/19 11:38 DL [id number] 05/26/19 11:48 DL 05/26/19 11:38 Wound Center Nurse 1 [Ulcer Assessment] #7- LT CALF posterior cluster -Current Size (cm) - Length 4 -Current Size (cm) - Width 3.8 -Current Size (cm) - Depth 0.1 -Total Square Cm 15.2 -Photo Taken No -Exudate Amt Small -Exudate Type Serosanguineous -Wound Margin Distinct, Outline Attached -Granulation Amt Medium (34-66%) -Granulation Quality [place] -Necrosis Amt Medium (34-66%) -Necrotic Tissue Type Adherent Slough -Structure Exposed N/A -Texture (Cassi-wound Skin Appearance) Scarring -Moisture (Cassi-wound Skin Appearance Dry/Scaly ) -Color (Cassi-wound Skin Appearance) Hemosiderin Staining,Rubor -Temperature (Cassi-wound Skin No Abnormality Appearance) (Pt Warm) -Tenderness on Palpation (Cassi-wound No Skin Appearance) -Ulcer Cleansing Wound Cleanser -Foul Odor after Cleansing No -Anesthetic Used 5% Lidocaine Gel [Edema Assessment] -Left Calf (cm) 40 -Left Ankle (cm) 21.2 WC - Nurse 2 - General Ulcer CM Notes Start: 05/04/19 11:31 Freq: Status: Active Protocol: Activity Type Activity Date Activity User E-Sign Co-Sign Detail Recorded Client Recorded Date Recorded By Document 05/26/19 12:31 MW [id number] 05/26/19 12:41 MW 05/26/19 12:31 Wound Center Nurse 2 [Procedure/Treatment] #7- LT CALF posterior cluster -Time 12:31 -Correct Patient Yes -Correct Side, Site, Position Yes -Correct Procedure Yes -Procedure Performed Yes -Type of Procedure Debridement -Clinical Debridement Subcutaneous -Post Debridement Size (cm) - Length 2.3 -Post Debridement Size (cm) - Width 5.0 -Post Debridement Size (cm) - Depth 0.2 -Total Square Cm 11.50 -Wound/Ulcer Outcome Not Healed -Ulcer Cleansing Rinsed/ Irrigated with Saline -Foul Odor after Cleansing No -Bioengineered Tissue Yes -Type of bioengineered Tissue Apligraf -Expiration Date 06/02/19 -Product Lot Number [id number] -Percent Used 100 -Saline Lot Number [id number] -Bleeding Controlled with Pressure -Offloading No -Treatment Response Procedure Tolerated Well [See Physician Procedure note for Specifics] Pain Scale: 0-10 Numeric [Pain] -Is Patient Pain Free? Yes Musculoskeletal: No Muscle Wasting Neurological: Cranial nerves II-XII grossly intact Psych/Mental Status: Normal Affect Debridement Note Post-Debridement Measurements/Treatment WC - Nurse 2 - General Ulcer CM Notes Start: 05/04/19 11:31 Freq: Status: Active Protocol: Activity Type Activity Date Activity User E-Sign Co-Sign Detail Recorded Client Recorded Date Recorded By Document 05/04/19 11:54 MW [id number] 05/04/19 11:55 MW Document 05/12/19 11:35 MW [id number] 05/12/19 11:46 MW Document 05/26/19 12:31 MW [id number] 05/26/19 12:41 MW 05/04/19 05/12/19 05/26/19 11:54 11:35 12:31 Wound Center Nurse 2 #8- LT LATERAL LE CLUSTER -Time 11:54 11:35 -Correct Patient Yes Yes -Correct Side, Site, Position Yes Yes -Correct Procedure Yes Yes -Procedure Performed No No -Post Debridement Size (cm) - Length 0 -Post Debridement Size (cm) - Width 0 -Post Debridement Size (cm) - Depth 0 -Total Square Cm 0 -Wound/Ulcer Outcome Not Healed Healed- Epithelialized -Ulcer Cleansing Not Cleansed Not Cleansed -Foul Odor after Cleansing No -Bleeding Controlled with NA -Offloading No No -Treatment Response Procedure Procedure Not Tolerated Well Tolerated Well #7- LT CALF posterior cluster -Time 11:54 11:38 12:31 -Correct Patient Yes Yes Yes -Correct Side, Site, Position Yes Yes Yes -Correct Procedure Yes Yes Yes -Procedure Performed No Yes Yes -Type of Procedure Debridement Debridement -Clinical Debridement Subcutaneous Subcutaneous -Post Debridement Size (cm) - Length 4.1 2.3 -Post Debridement Size (cm) - Width 5.3 5.0 -Post Debridement Size (cm) - Depth 0.1 0.2 -Total Square Cm 21.73 11.50 -Wound/Ulcer Outcome Not Healed Not Healed Not Healed -Ulcer Cleansing Not Cleansed Rinsed/ Rinsed/ Irrigated with Irrigated with Saline Saline -Foul Odor after Cleansing No No No -Bioengineered Tissue No No Yes -Type of bioengineered Tissue Apligraf -Expiration Date 06/02/19 -Product Lot Number [id number] -Percent Used 100 -Saline Lot Number [id number] -Bleeding Controlled with NA Pressure Pressure -Offloading No No No -Treatment Response Procedure Procedure Procedure Tolerated Well Tolerated Well Tolerated Well Pain Scale: 0-10 Numeric Is Patient Pain Free? Yes Yes Yes Wound debrided: Left lower extremity Wound Grade/Stage: Stage III Type of Debridement: Excisional debridement Anesthesia Used: 4% Lidocaine Solution Depth: Down to and including healthy tissue, in the subcutaneous layer Percentage of wound debrided: 100 Instrument Used: 3mm curette Tissue Removed: Slough and devitalized tissue Severity: Fat Layer Exposed Amount of bleeding with debridement: Mild Bleeding Controlled with: Pressure Patient tolerated procedure well Assessment/Plan Active Problems (Last Reviewed 02/28/19 @ 15:45 by Little Waterman) Cellulitis (Acute) Ulcer of left lower extremity with fat layer exposed (Chronic) mixed venous arterial left posterior calf Lymphedema (Chronic) Assessment: Nonhealing recurrent left lower extremity ulceration secondary to lymphedema and peripheral arterial disease. Diabetes mellitus. Plan: Improving. No new concerns at this time. Debridement done as documented above, procedure was well-tolerated. Thin application of Apligraf done using 100% of product, moistened with saline with wound veil over top and secured with Steri-Strips. Leave in place for 2 weeks. Continue single layer Tubigrip for edema management. Continue increased protein intake and elevating lower extremities when seated and in bed. All her questions were answered and she was advised to call with any further questions or concerns. Follow-up in 2 weeks. This note was generated with [employer] dictation software. It may contain incorrect words, spelling, and punctuation that were not noted in checking the note before signing.
== END 2019-05-29 23:59 ==
LOC: WC 11:45
PROVIDERS: Family Provider Nurse Practitioner; PCP Nurse Practitioner; Visit Provider Internal Medicine
DX: E11.622 Type 2 diabetes mellitus with other skin ulcer (principal); L97.222 Non-pressure chronic ulcer of left calf with fat layer exposed; E66.01 Morbid (severe) obesity due to excess calories; E11.51 Type 2 diabetes mellitus with diabetic peripheral angiopathy without gangrene; I89.0 Lymphedema, not elsewhere classified; Z68.38 Body mass index [BMI] 38.0-38.9, adult
CPT/HCPCS: 15271; 15272; 99213; Q4101; G0463

== ENCOUNTER 2019-06-22 11:45 | Outpatient (RCR) | payer MEDICARE, SELFPAY ==
[2016-12-05 15:47] VITALS: BMI 35.6
[2019-05-30 00:46] VITALS: BP 145/68; PULSE 59; RESP 18; TEMP 36.2
[2019-06-09 12:11] VITALS: BP 149/65; PULSE 61; RESP 20; TEMP 36.4; BMI 38.4
--- NOTE | 2019-06-09 13:39 | PCM.WC.PN ---
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 Current Visit: Yes Code(s): E11.59 - Type 2 diabetes mellitus with other circulatory complications (4) Ulcer of left lower extremity with fat layer exposed Status: Chronic Current Visit: Yes Code(s): L97.922 - Non-pressure chronic ulcer of unspecified part of left lower leg with fat layer exposed Comment: mixed venous arterial left posterior calf Type of Wound Date of Service: 06/09/19 Chief Complaint: Non healing Ulcers History of Wound: Ms Stapleton is a 73-year-old with past medical history as stated above well-known to the wound center who returns due to nonhealing left lower extremity ulcer. Last seen here at the wound center in March however patient states that she had a recurrence of the ulcer several months ago. She has been doing a wet-to-dry dressing at home with no significant improvement. She is scheduled to have bladder repair however surgery is on hold until she has total healing of the ulcer. She denies chills, fever or otherwise feeling of unwell. History of lymphedema however does not utilize compression stockings due to poor tolerance. She also has a history of diabetes mellitus which she states is very well controlled. Progress of Wound: Ulcer is stable however, there is concern for left lower extremity cellulitis due to increased erythema and tenderness. - Physical Exam Vital Signs Temp Pulse Resp BP 97.5 F L 61 20 H 149/65 H 06/09/19 12:11 06/09/19 12:11 06/09/19 12:11 06/09/19 12:11 General: Alert, Oriented x3, Cooperative, No apparent distress HEENT: Atraumatic, Normocephalic Oral: Moist Mucosa Neck: Supple Lungs: Normal air movement Abdomen: Non Tender, Obese Extremities: No cyanosis Skin: Ulcer/ Wound Wound Measurements and Assessment WC - Nurse 1 - General Ulcer Measurement Start: 06/09/19 12:11 Freq: Status: Active Protocol: Activity Type Activity Date Activity User E-Sign Co-Sign Detail Recorded Client Recorded Date Recorded By Document 06/09/19 12:11 DL [id number] 06/09/19 12:18 DL 06/09/19 12:11 Wound Center Nurse 1 [Ulcer Assessment] #7- LT CALF posterior cluster -Combined with other wound No -Current Size (cm) - Length 4 -Current Size (cm) - Width 5 -Current Size (cm) - Depth 0.1 -Total Square Cm 20 -Photo Taken No -Epithelialization Small 1-33% -Tunneling No -Undermining/Tunneling No -Circular Undermining No -Exudate Amt Small -Exudate Type Serosanguineous -Wound Margin Flat & Intact -Granulation Amt Medium (34-66%) -Granulation Quality [place] -Slough/Fibrin Yes -Necrosis Amt Medium (34-66%) -Necrotic Tissue Type Adherent Slough -Texture (Cassi-wound Skin Appearance) Assessed, Scarring -Moisture (Cassi-wound Skin Appearance Assessed,Dry/ ) Scaly -Color (Cassi-wound Skin Appearance) Assessed, Erythema -Temperature (Cassi-wound Skin No Abnormality Appearance) (Pt Warm) -Tenderness on Palpation (Cassi-wound No Skin Appearance) -Ulcer Cleansing Wound Cleanser -Foul Odor after Cleansing No -Anesthetic Used 4% Lidocaine Solution [Edema Assessment] -Lower Limb Edema Present Yes -Left Calf (cm) 40 -Left Ankle (cm) 21.8 WC - Nurse 2 - General Ulcer CM Notes Start: 06/09/19 12:11 Freq: Status: Active Protocol: Activity Type Activity Date Activity User E-Sign Co-Sign Detail Recorded Client Recorded Date Recorded By Document 06/09/19 12:31 MW [id number] 06/09/19 12:42 MW 06/09/19 12:31 Wound Center Nurse 2 [Procedure/Treatment] #7- LT CALF posterior cluster -Time 12:31 -Correct Patient Yes -Correct Side, Site, Position Yes -Correct Procedure Yes -Procedure Performed Yes -Type of Procedure Debridement -Clinical Debridement Subcutaneous -Post Debridement Size (cm) - Length 2.5 -Post Debridement Size (cm) - Width 5.0 -Post Debridement Size (cm) - Depth 0.2 -Total Square Cm 12.50 -Wound/Ulcer Outcome Not Healed -Ulcer Cleansing Rinsed/ Irrigated with Saline -Foul Odor after Cleansing No -Bioengineered Tissue Yes -Type of bioengineered Tissue Apligraf -Expiration Date 06/09/19 -Product Lot Number [id number] -Percent Used 100 -Saline Lot Number [id number] -Bleeding Controlled with Pressure -Offloading No -Treatment Response Procedure Tolerated Well [See Physician Procedure note for Specifics] Pain Scale: 0-10 Numeric [Pain] -Is Patient Pain Free? Yes Musculoskeletal: No Muscle Wasting Neurological: Cranial nerves II-XII grossly intact Psych/Mental Status: Normal Affect Debridement Note Post-Debridement Measurements/Treatment WC - Nurse 2 - General Ulcer CM Notes Start: 06/09/19 12:11 Freq: Status: Active Protocol: Activity Type Activity Date Activity User E-Sign Co-Sign Detail Recorded Client Recorded Date Recorded By Document 06/09/19 12:31 MW [id number] 06/09/19 12:42 MW 06/09/19 12:31 Wound Center Nurse 2 #7- LT CALF posterior cluster -Time 12:31 -Correct Patient Yes -Correct Side, Site, Position Yes -Correct Procedure Yes -Procedure Performed Yes -Type of Procedure Debridement -Clinical Debridement Subcutaneous -Post Debridement Size (cm) - Length 2.5 -Post Debridement Size (cm) - Width 5.0 -Post Debridement Size (cm) - Depth 0.2 -Total Square Cm 12.50 -Wound/Ulcer Outcome Not Healed -Ulcer Cleansing Rinsed/ Irrigated with Saline -Foul Odor after Cleansing No -Bioengineered Tissue Yes -Type of bioengineered Tissue Apligraf -Expiration Date 06/09/19 -Product Lot Number [id number] -Percent Used 100 -Saline Lot Number [id number] -Bleeding Controlled with Pressure -Offloading No -Treatment Response Procedure Tolerated Well Pain Scale: 0-10 Numeric Is Patient Pain Free? Yes Wound debrided: Left lower extremity Wound Grade/Stage: Stage III Type of Debridement: Excisional debridement Anesthesia Used: 4% Lidocaine Solution Depth: Down to and including healthy tissue, in the subcutaneous layer Percentage of wound debrided: 100 Instrument Used: 5mm curette Tissue Removed: Slough and devitalized tissue Severity: Fat Layer Exposed Amount of bleeding with debridement: Mild Bleeding Controlled with: Pressure Patient tolerated procedure well Assessment/Plan Active Problems (Last Reviewed 02/28/19 @ 15:45 by Little Waterman) Ulcer of left lower extremity with fat layer exposed (Chronic) mixed venous arterial left posterior calf Lymphedema (Chronic) 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) Assessment: Nonhealing recurrent left lower extremity ulceration secondary to lymphedema and peripheral arterial disease. Diabetes mellitus. Plan: Improving ulcer. However, concern for cellulitis due to increased erythema, differential warmth and tenderness. Debridement done as documented above, procedure was well-tolerated. 4th application of Apligraf done using 100% of product, moistened with saline with Adaptic/guaze over top and secured with Steri-Strips and blue tape. Leave in place for 2 weeks. Continue single layer Tubigrip for edema management. Continue increased protein intake and elevating lower extremities when seated and in bed. All her questions were answered and she was advised to call with any further questions or concerns. Follow-up in 2 weeks. This note was generated with [employer] dictation software. It may contain incorrect words, spelling, and punctuation that were not noted in checking the note before signing.
[2019-06-22 11:47] VITALS: BP 149/75; PULSE 55; RESP 18; TEMP 36.2; BMI 38.4
--- NOTE | 2019-06-22 12:21 | PCM.WC.PN ---
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 Last seen here at the wound center in March however patient states that she had a recurrence of the ulcer several months ago. She has been doing a wet-to-dry dressing at home with no significant improvement. She is scheduled to have bladder repair however surgery is on hold until she has total healing of the ulcer. She denies chills, fever or otherwise feeling of unwell. History of lymphedema however does not utilize compression stockings due to poor tolerance. She also has a history of diabetes mellitus which she states is very well controlled. Progress of Wound: Ulcer is stable. New surrounding areas of excoriation. - Physical Exam Vital Signs Temp Pulse Resp BP 97.1 F L 55 L 18 149/75 H 06/22/19 11:47 06/22/19 11:47 06/22/19 11:47 06/22/19 11:47 General: Alert, Oriented x3, Cooperative, No apparent distress HEENT: Atraumatic, Normocephalic Oral: Moist Mucosa Neck: Supple Lungs: Normal air movement Extremities: No cyanosis, Edema Skin: Ulcer/ Wound Wound Measurements and Assessment WC - Nurse 1 - General Ulcer Measurement Start: 06/09/19 12:11 Freq: Status: Active Protocol: Activity Type Activity Date Activity User E-Sign Co-Sign Detail Recorded Client Recorded Date Recorded By Document 06/22/19 11:47 DL [id number] 06/22/19 11:54 DL 06/22/19 11:47 Wound Center Nurse 1 [Ulcer Assessment] #7- LT CALF posterior cluster -Current Size (cm) - Length 1.5 -Current Size (cm) - Width 4.5 -Current Size (cm) - Depth 0.1 -Total Square Cm 6.75 -Photo Taken No -Exudate Amt Small -Exudate Type Serosanguineous -Wound Margin Indistinct, Non -Visible -Granulation Amt Medium (34-66%) -Granulation Quality [place] -Necrosis Amt Medium (34-66%) -Necrotic Tissue Type Adherent Slough -Structure Exposed N/A -Texture (Cassi-wound Skin Appearance) Scarring -Moisture (Cassi-wound Skin Appearance Dry/Scaly ) -Color (Cassi-wound Skin Appearance) Hemosiderin Staining -Temperature (Cassi-wound Skin No Abnormality Appearance) (Pt Warm) -Tenderness on Palpation (Cassi-wound No Skin Appearance) -Ulcer Cleansing Wound Cleanser -Foul Odor after Cleansing No -Anesthetic Used 5% Lidocaine Gel [Edema Assessment] -Left Calf (cm) 40.5 -Left Ankle (cm) 22.4 WC - Nurse 2 - General Ulcer CM Notes Start: 06/09/19 12:11 Freq: Status: Active Protocol: Activity Type Activity Date Activity User E-Sign Co-Sign Detail Recorded Client Recorded Date Recorded By Document 06/22/19 12:03 MW [id number] 06/22/19 12:15 MW 06/22/19 12:03 Wound Center Nurse 2 [Procedure/Treatment] #7- LT CALF posterior cluster -Time 12:03 -Correct Patient Yes -Correct Side, Site, Position Yes -Correct Procedure Yes -Procedure Performed Yes -Type of Procedure Debridement -Clinical Debridement Subcutaneous -Post Debridement Size (cm) - Length 2.1 -Post Debridement Size (cm) - Width 4.5 -Post Debridement Size (cm) - Depth 0.2 -Total Square Cm 9.45 -Wound/Ulcer Outcome Not Healed -Ulcer Cleansing Rinsed/ Irrigated with Saline -Foul Odor after Cleansing No -Bioengineered Tissue Yes -Type of bioengineered Tissue Apligraf -Expiration Date 06/24/19 -Product Lot Number [id number] -Percent Used 100 -Saline Lot Number [id number] -Bleeding Controlled with Pressure -Offloading No -Treatment Response Procedure Tolerated Well [See Physician Procedure note for Specifics] Pain Scale: 0-10 Numeric [Pain] -Is Patient Pain Free? Yes Musculoskeletal: No Muscle Wasting Neurological: Cranial nerves II-XII grossly intact Psych/Mental Status: Normal Affect Debridement Note Post-Debridement Measurements/Treatment WC - Nurse 2 - General Ulcer CM Notes Start: 06/09/19 12:11 Freq: Status: Active Protocol: Activity Type Activity Date Activity User E-Sign Co-Sign Detail Recorded Client Recorded Date Recorded By Document 06/09/19 12:31 MW [id number] 06/09/19 12:42 MW Document 06/22/19 12:03 MW [id number] 06/22/19 12:15 MW 06/09/19 06/22/19 12:31 12:03 Wound Center Nurse 2 #7- LT CALF posterior cluster -Time 12:31 12:03 -Correct Patient Yes Yes -Correct Side, Site, Position Yes Yes -Correct Procedure Yes Yes -Procedure Performed Yes Yes -Type of Procedure Debridement Debridement -Clinical Debridement Subcutaneous Subcutaneous -Post Debridement Size (cm) - Length 2.5 2.1 -Post Debridement Size (cm) - Width 5.0 4.5 -Post Debridement Size (cm) - Depth 0.2 0.2 -Total Square Cm 12.50 9.45 -Wound/Ulcer Outcome Not Healed Not Healed -Ulcer Cleansing Rinsed/ Rinsed/ Irrigated with Irrigated with Saline Saline -Foul Odor after Cleansing No No -Bioengineered Tissue Yes Yes -Type of bioengineered Tissue Apligraf Apligraf -Expiration Date 06/09/19 06/24/19 -Product Lot Number [id number] -Percent Used 100 100 -Saline Lot Number [id number] -Bleeding Controlled with Pressure Pressure -Offloading No No -Treatment Response Procedure Procedure Tolerated Well Tolerated Well Pain Scale: 0-10 Numeric Is Patient Pain Free? Yes Yes Wound debrided: Left Leg Wound Grade/Stage: Stage III Type of Debridement: Excisional debridement Anesthesia Used: 4% Lidocaine Solution Depth: Down to and including healthy tissue, in the subcutaneous layer Percentage of wound debrided: 100 Instrument Used: 3mm curette Tissue Removed: Slough and devitalized tissue Severity: Fat Layer Exposed Amount of bleeding with debridement: Mild Bleeding Controlled with: Pressure Patient tolerated procedure well Assessment/Plan Active Problems (Last Reviewed 02/28/19 @ 15:45 by Litlte Waterman) Ulcer of left lower extremity with fat layer exposed (Chronic) mixed venous arterial left posterior calf Lymphedema (Chronic) 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) Assessment: Nonhealing recurrent left lower extremity ulceration secondary to lymphedema and peripheral arterial disease. Diabetes mellitus. Plan: Improving ulcer. New open areas due to itching adn scratching. 5th application of Apligraf done using 100% of product, moistened with saline with Adaptic/guaze over top and secured with Steri-Strips and blue tape. Leave in place for 2 weeks. Continue single layer Tubigrip for edema management. This is her 5th application however, she would benefit from more aplications. Ulcer has done well so far on Apligraf but requires more applications to complete healing. She had no improvement with traditional wound care product. Continue increased protein intake and elevating lower extremities when seated and in bed. All her questions were answered and she was advised to call with any further questions or concerns. Follow-up in 2 weeks. This note was generated with [employer] dictation software. It may contain incorrect words, spelling, and punctuation that were not noted in checking the note before signing.
== END 2019-06-29 23:59 ==
LOC: WC 11:45
PROVIDERS: Family Provider Nurse Practitioner; PCP Nurse Practitioner; Visit Provider Internal Medicine
DX: E11.622 Type 2 diabetes mellitus with other skin ulcer (principal); L97.222 Non-pressure chronic ulcer of left calf with fat layer exposed; I89.0 Lymphedema, not elsewhere classified; E11.51 Type 2 diabetes mellitus with diabetic peripheral angiopathy without gangrene
CPT/HCPCS: 15271; 15272; Q4101

== ENCOUNTER 2019-07-27 11:00 | Outpatient (RCR) | payer MEDICARE, SELFPAY ==
[2016-12-05 15:47] VITALS: BMI 35.6
[2019-06-30 00:46] VITALS: BP 149/75; PULSE 55; RESP 18; TEMP 36.2
[2019-07-08 11:29] VITALS: BP 147/70; PULSE 66; RESP 20; TEMP 36.2; BMI 38.4
--- NOTE | 2019-07-08 12:56 | PN.PCM_ITS ---
(1) DM2 (diabetes mellitus, type 2) Status: Chronic Current Visit: Yes Qualifiers: Diabetes mellitus complication status: with circulatory complication Code(s): E11.9 - Type 2 diabetes mellitus without complications (2) Morbid obesity with BMI of 45.0-49.9, adult Status: Chronic Current Visit: Yes Code(s): E66.01 - Morbid (severe) obesity due to excess calories; Z68.42 - Body mass index (BMI) 45.0-49.9, adult (3) Personal history of DVT (deep vein thrombosis) Status: Chronic Current Visit: Yes Code(s): Z86.718 - Personal history of other venous thrombosis and embolism (4) Type 2 diabetes mellitus with other circulatory complications Status: Chronic Current Visit: Yes Code(s): E11.59 - Type 2 diabetes mellitus with other circulatory complications (5) Ulcer of left lower extremity with fat layer exposed Status: Chronic Current Visit: Yes Code(s): L97.922 - Non-pressure chronic ulcer of unspecified part of left lower leg with fat layer exposed Comment: mixed venous arterial left posterior calf Type of Wound Date of Service: 07/08/19 Chief Complaint: Non healing Ulcers History of Wound: Ms Stapleton is a 73-year-old with past medical history as sta maggi above well-known to the wound center who returns due to nonhealing left lower extremity ulcer. Last seen here at the wound center in March however patient states that she had a recurrence of the ulcer several months ago. She has been doing a wet-to-dry dressing at home with no significant improvement. She is scheduled to have bladder repair however surgery is on hold until she has total healing of the ulcer. She denies chills, fever or otherwise feeling of unwell. History of lymphedema however does not utilize compression stockings due to poor tolerance. She also has a history of diabetes mellitus which she states is very well controlled. Progress of Wound: Ulcer is stable. Took Apligraf off today new skin small area still needs to be filled in with Promogran. Patient healing well - Physical Exam Vital Signs Temp Pulse Resp BP 97.2 F L 66 20 H 147/70 H 07/08/19 11:29 07/08/19 11:29 07/08/19 11:29 07/08/19 11:29 General: Oriented x3, Cooperative, Well developed HEENT: Atraumatic, PERRLA Oral: Moist Mucosa Neck: Supple, No JVD Lungs: Clear to auscultation, Normal air movement Cardiovascular: Regular rate, Regular Rhythm Abdomen: Bowel Sounds Present, Soft, Non Tender, No Hepato-splenomegaly Extremities: No clubbing, No edema Wound Measurements and Assessment - Nurse 1 - General Ulcer Measurement Start: 07/08/19 11:29 Freq: Status: Active Protocol: Activity Type Activity Date Activity User E-Sign Co-Sign Detail Recorded Client Recorded Date Recorded By Document 07/08/19 11:29 DL [id number] 07/08/19 11:41 DL 07/08/19 11:29 Wound Center Nurse 1 [Ulcer Assessment] #7- LT CALF posterior cluster -Current Size (cm) - Length 3.5 -Current Size (cm) - Width 4.4 -Current Size (cm) - Depth 0.1 -Total Square Cm 15.40 -Photo Taken No -Exudate Amt Medium -Exudate Type Serosanguineous -Wound Margin Distinct, Outline Attached -Granulation Amt Medium (34-66%) -Granulation Quality [place] -Necrosis Amt Small (1-33%) -Necrotic Tissue Type Adherent Slough -Structure Exposed N/A -Texture (Cassi-wound Skin Appearance) Scarring -Moisture (Cassi-wound Skin Appearance Dry/Scaly ) -Color (Cassi-wound Skin Appearance) Rubor -Temperature (Cassi-wound Skin No Abnormality Appearance) (Pt Warm) -Tenderness on Palpation (Cassi-wound No Skin Appearance) -Ulcer Cleansing Wound Cleanser -Foul Odor after Cleansing No -Anesthetic Used 4% Lidocaine Solution,5% Lidocaine Gel [Edema Assessment] -Left Calf (cm) 40.5 -Left Ankle (cm) 20.3 - Nurse 2 - General Ulcer CM Notes Start: 07/08/19 11:29 Freq: Status: Active Protocol: Activity Type Activity Date Activity User E-Sign Co-Sign Detail Recorded Client Recorded Date Recorded By Document 07/08/19 11:46 MW [id number] 07/08/19 11:50 MW 07/08/19 11:46 Wound Center Nurse 2 [Procedure/Treatment] #7- LT CALF posterior cluster -Time 11:47 -Correct Patient Yes -Correct Side, Site, Position Yes -Correct Procedure Yes -Procedure Performed Yes -Type of Procedure Debridement -Clinical Debridement Subcutaneous -Post Debridement Size (cm) - Length 3.8 -Post Debridement Size (cm) - Width 11.0 -Post Debridement Size (cm) - Depth 0.2 -Total Square Cm 41.80 -Wound/Ulcer Outcome Not Healed -Ulcer Cleansing Rinsed/ Irrigated with Saline -Foul Odor after Cleansing No -Bioengineered Tissue No -Bleeding Controlled with Pressure -Offloading No -Treatment Response Procedure Tolerated Well [See Physician Procedure note for Specifics] Pain Scale: 0-10 Numeric [Pain] -Is Patient Pain Free? Yes Musculoskeletal: No Tenderness to Palpation of Joints or Extremities Lymphatic: No Cervical, Supraclavicular, or Inguinal Adenopathy Neurological: Cranial nerves II-XII grossly intact, Neuro grossly intact Psych/Mental Status: Normal Affect, Appropriate, Alert and oriented to time, place, person, mood and affect Debridement Note Post-Debridement Measurements/Treatment WC - Nurse 2 - General Ulcer CM Notes Start: 07/08/19 11:29 Freq: Status: Active Protocol: Activity Type Activity Date Activity User E-Sign Co-Sign Detail Recorded Client Recorded Date Recorded By Document 07/08/19 11:46 MW [id number] 07/08/19 11:50 MW 07/08/19 11:46 Wound Center Nurse 2 #7- LT CALF posterior cluster -Time 11:47 -Correct Patient Yes -Correct Side, Site, Position Yes -Correct Procedure Yes -Procedure Performed Yes -Type of Procedure Debridement -Clinical Debridement Subcutaneous -Post Debridement Size (cm) - Length 3.8 -Post Debridement Size (cm) - Width 11.0 -Post Debridement Size (cm) - Depth 0.2 -Total Square Cm 41.80 -Wound/Ulcer Outcome Not Healed -Ulcer Cleansing Rinsed/ Irrigated with Saline -Foul Odor after Cleansing No -Bioengineered Tissue No -Bleeding Controlled with Pressure -Offloading No -Treatment Response Procedure Tolerated Well Pain Scale: 0-10 Numeric Is Patient Pain Free? Yes Wound debrided: Left lower posterior leg Type of Debridement: Excisional debridement Anesthesia Used: 5% Lidocaine Gel Depth: Down to and including healthy tissue Percentage of wound debrided: 100 Instrument Used: 7mm curette Tissue Removed: Fibrin Severity: Limited To Skin Breakdown Amount of bleeding with debridement: Mild Bleeding Controlled with: Compression and gauze Patient tolerated procedure well Assessment/Plan Active Problems (Last Reviewed 02/28/19 @ 15:45 by Little Waterman) Morbid obesity with BMI of 45.0-49.9, adult (Chronic) Personal history of DVT (deep vein thrombosis) (Chronic) Ulcer of left lower extremity with fat layer exposed (Chronic) mixed venous arterial left posterior calf DM2 (diabetes mellitus, type 2) (Chronic) 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) Assessment: Nonhealing recurrent left lower extremity ulceration secondary to lymphedema and peripheral arterial disease. Diabetes mellitus. Plan: Improving ulcer. To use Promogran to to open areas only cover wrap continue her compression follow-up with Dr. Enriquez, courtesy visit ulcer very stable
[2019-07-13 11:15] VITALS: BP 152/84; PULSE 60; RESP 18; TEMP 36.4; BMI 38.4
--- NOTE | 2019-07-13 16:28 | PN.PCM_ITS ---
(1) Ulcer of left lower extremity with fat layer exposed Status: Chronic Current Visit: Yes Code(s): L97.922 - Non-pressure chronic ulcer of unspecified part of left lower leg with fat layer exposed Comment: mixed venous arterial left posterior calf (2) Venous insufficiency of both lower extremities Status: Acute Current Visit: Yes Code(s): I87.2 - Venous insufficiency (chronic) (peripheral) (3) Varicose veins of both lower extremities Status: Chronic Current Visit: Yes Code(s): I83.93 - Asymptomatic varicose veins of bilateral lower extremities Type of Wound Date of Service: 07/13/19 Chief Complaint: Non healing Ulcers History of Wound: Ms Stapleton is a 73-year-old with past medical history as stated above well-known to the wound center who returns due to nonhealing left l ower extremity ulcer. Last seen here at the wound center in March however patient states that she had a recurrence of the ulcer several months ago. She has been doing a wet-to-dry dressing at home with no significant improvement. She is scheduled to have bladder repair however surgery is on hold until she has total healing of the ulcer. She denies chills, fever or otherwise feeling of unwell. History of lymphedema however does not utilize compression stockings due to poor tolerance. She also has a history of diabetes mellitus which she states is very well controlled. Progress of Wound: Stable. Not approved for further skin subs. Still has significant area. - Physical Exam Vital Signs Temp Pulse Resp BP 97.5 F L 60 18 152/84 H 07/13/19 11:15 07/13/19 11:15 07/13/19 11:15 07/13/19 11:15 General: Alert, Oriented x3, Cooperative, No apparent distress HEENT: Atraumatic, Normocephalic Oral: Moist Mucosa Neck: Supple Lungs: Normal air movement Abdomen: Non Tender, Obese Extremities: No cyanosis, Edema Skin: Ulcer/ Wound Wound Measurements and Assessment WC - Nurse 1 - General Ulcer Measurement Start: 07/08/19 11:29 Freq: Status: Active Protocol: Activity Type Activity Date Activity User E-Sign Co-Sign Detail Recorded Client Recorded Date Recorded By Document 07/13/19 11:15 [facility] [id number] 07/13/19 11:20 [facility] 07/13/19 11:15 Wound Center Nurse 1 [Ulcer Assessment] #7- LT CALF posterior cluster -Combined with other wound No -Current Size (cm) - Length 3.7 -Current Size (cm) - Width 4.6 -Current Size (cm) - Depth 0.1 -Total Square Cm 17.02 -Photo Taken No -Tunneling No -Undermining/Tunneling No -Circular Undermining No -Exudate Amt Small -Exudate Type Serosanguineous -Wound Margin Flat & Intact -Granulation Amt Medium (34-66%) -Granulation Quality [place] -Slough/Fibrin Yes -Necrosis Amt Small (1-33%) -Structure Exposed N/A -Texture (Cassi-wound Skin Appearance) Assessed -Moisture (Cassi-wound Skin Appearance Assessed ) -Color (Cassi-wound Skin Appearance) Assessed -Temperature (Cassi-wound Skin No Abnormality Appearance) (Pt Warm) -Tenderness on Palpation (Cassi-wound No Skin Appearance) -Ulcer Cleansing Wound Cleanser -Foul Odor after Cleansing No -Anesthetic Used 4% Lidocaine Solution [Edema Assessment] -Lower Limb Edema Present Yes -Left Calf (cm) 43 -Left Ankle (cm) 22.5 WC - Nurse 2 - General Ulcer CM Notes Start: 07/08/19 11:29 Freq: Status: Active Protocol: Activity Type Activity Date Activity User E-Sign Co-Sign Detail Recorded Client Recorded Date Recorded By Document 07/13/19 11:39 [email or web address] [id number] 07/13/19 11:42 VIRIDIANA 07/13/19 11:39 Wound Center Nurse 2 [Procedure/Treatment] #7- LT CALF posterior cluster -Time 11:39 -Correct Patient Yes -Correct Side, Site, Position Yes -Correct Procedure Yes -Procedure Performed Yes -Type of Procedure Debridement -Clinical Debridement Subcutaneous -Post Debridement Size (cm) - Length 4 -Post Debridement Size (cm) - Width 5 -Post Debridement Size (cm) - Depth 0.2 -Total Square Cm 20 -Wound/Ulcer Outcome Not Healed -Ulcer Cleansing Rinsed/ Irrigated with Saline -Foul Odor after Cleansing No -Bioengineered Tissue No -Bleeding Controlled with Pressure -Offloading No -Treatment Response Procedure Tolerated Well [See Physician Procedure note for Specifics] Pain Scale: 0-10 Numeric [Pain] -Is Patient Pain Free? Yes Neurological: Cranial nerves II-XII grossly intact Psych/Mental Status: Normal Affect Debridement Note Post-Debridement Measurements/Treatment WC - Nurse 2 - General Ulcer CM Notes Start: 07/08/19 11:29 Freq: Status: Active Protocol: Activity Type Activity Date Activity User E-Sign Co-Sign Detail Recorded Client Recorded Date Recorded By Document 07/08/19 11:46 MW [id number] 07/08/19 11:50 MW Document 07/13/19 11:39 [id number] 07/13/19 11:42 07/08/19 07/13/19 11:46 11:39 Wound Center Nurse 2 #7- LT CALF posterior cluster -Time 11:47 11:39 -Correct Patient Yes Yes -Correct Side, Site, Position Yes Yes -Correct Procedure Yes Yes -Procedure Performed Yes Yes -Type of Procedure Debridement Debridement -Clinical Debridement Subcutaneous Subcutaneous -Post Debridement Size (cm) - Length 3.8 4 -Post Debridement Size (cm) - Width 11.0 5 -Post Debridement Size (cm) - Depth 0.2 0.2 -Total Square Cm 41.80 20 -Wound/Ulcer Outcome Not Healed Not Healed -Ulcer Cleansing Rinsed/ Rinsed/ Irrigated with Irrigated with Saline Saline -Foul Odor after Cleansing No No -Bioengineered Tissue No No -Bleeding Controlled with Pressure Pressure -Offloading No No -Treatment Response Procedure Procedure Tolerated Well Tolerated Well Pain Scale: 0-10 Numeric Is Patient Pain Free? Yes Yes Wound debrided: Left lower extremity Type of Debridement: Excisional debridement Anesthesia Used: 4% Lidocaine Solution Depth: Down to and including healthy tissue, in the subcutaneous layer Percentage of wound debrided: 100 Instrument Used: 3mm curette Tissue Removed: Slough and-Devitalized tissue Severity: Fat Layer Exposed Amount of bleeding with debridement: Mild Bleeding Controlled with: Pressure Patient tolerated procedure well Assessment/Plan Active Problems (Last Reviewed 02/28/19 @ 15:45 by Little Waterman) Venous insufficiency of both lower extremities (Acute) Varicose veins of both lower extremities (Chronic) Morbid obesity with BMI of 45.0-49.9, adult (Chronic) Personal history of DVT (deep vein thrombosis) (Chronic) Ulcer of left lower extremity with fat layer exposed (Chronic) mixed venous arterial left posterior calf DM2 (diabetes mellitus, type 2) (Chronic) 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) Assessment: Nonhealing recurrent left lower extremity ulceration secondary to lymphedema and peripheral arterial disease. Diabetes mellitus. Plan: Debridement done as documented above. Procedure was well-tolerated. Still has significant area however improved compared to prior. Continue Promogran. 3M wraps for edema management. Advised to elevate lower extremities when seated and in bed. Exercise and weight loss also recommended. Increased protein intake. Follow-up on Thursday for nurse visit and in 1 week with me. Her questions were answered and she was advised to call with any further questions or concerns. This note was generated with [employer] dictation software. It may contain incorrect words, spelling, and punctuation that were not noted in checking the note before signing.
[2019-07-18 14:50] VITALS: BP 147/87; PULSE 71; RESP 18; TEMP 36.3; BMI 38.4
[2019-07-20 12:04] VITALS: BP 158/70; PULSE 62; RESP 18; TEMP 36.3; BMI 38.4
--- NOTE | 2019-07-20 19:14 | HP.PCM_ITS ---
(1) Ulcer of left lower extremity with fat layer exposed Status: Chronic Current Visit: Yes Code(s): L97.922 - Non-pressure chronic ulcer of unspecified part of left lower leg with fat layer exposed Comment: mixed venous arterial left posterior calf (2) Venous insufficiency of both lower extremities Status: Acute Current Visit: Yes Code(s): I87.2 - Venous insufficiency (chronic) (peripheral) (3) Varicose veins of both lower extremities Status: Chronic Current Visit: Yes Code(s): I83.93 - Asymptomatic varicose veins of bilateral lower extremities (4) Wound of right lower extremity Status: Acute Current Visit: Yes Code(s): S81.801A - Unspecified open wound, right lower leg, initial encounter Comment: Traumatic, penetrating with fat layer exposed. History of Present Illness Date of Service: 07/20/19 Chief Complaint: Non healing Ulcers History of Wound: Ms Stapleton is a 73-year-old with past medical history as stated above well-known to the wound center and is being managed for chronic venous left lower extremity ulcer. She however now presents with a right lower extremity wound after she was hit by a car door. Was seen as a nurse visit 2 days ago, case was discussed with me and she was advised to apply Fibracol to the wound. 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 [facility]. She has had 5 applications of Apligraf with some improvement. Did poorly on conservative with management in the past. 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 veins of both lower extremities (Chronic) Chronic renal failure, stage 4 (severe) (Chronic) Chronic steroid use (Chronic) Morbid obesity with BMI of 45.0-49.9, adult (Chronic) Osteopenia (Chronic) Pulmonary hypertension (Chronic) Personal history of DVT (deep vein thrombosis) (Chronic) Presence of IVC filter (Chronic) Ulcer of left lower extremity with fat layer exposed (Chronic) mixed venous arterial left posterior calf Lymphedema (Chronic) PVD (peripheral vascular disease) (Chronic) Paroxysmal atrial fibrillation (Chronic) S/P angioplasty with stent (Chronic ~12/05/16) EDGARDO to mid LAD 12/05/2016 DM2 (diabetes mellitus, type 2) (Chronic) Dyslipidemia (Chronic) Depression (Chronic) Gout (Chronic) 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) Surgical History: angioplasty, hysterectomy, rotator cuff repair, - Allergies/Adverse Reactions: Allergies cefepime HCl [From Maxipime] Allergy (Verified 03/03/19 10:01) Itching cephalexin monohydrate [From Keflex] Allergy (Verified 03/03/19 10:01) Hives clopidogrel [From Plavix] Allergy (Verified 03/03/19 10:01) Itching and hives all over hydromorphone HCl [From Dilaudid] Adverse Reaction (Verified 03/03/19 10:01) Itching piperacillin [From Zosyn] Adverse Reaction (Verified 03/03/19 10:01) Hives tazobactam [From Zosyn] Adverse Reaction (Verified 03/03/19 10:01) Hives Home Medications: Ambulatory Orders Medication Instructions Recorded Allopurinol 300 mg PO DAILY 10/16/18 Aspirin [Aspirin, Baby] 81 mg PO DAILY@0800 10/16/18 Ergocalciferol (Vitamin D2) 50,000 unit PO WESA 10/16/18 [Drisdol] Hydroxychloroquine [Plaquenil] 200 mg PO BIDCM 10/16/18 Insulin Glargine,Hum.rec.anlog 10 unit SQ QHS 10/16/18 [Lantus] Prednisone 5 mg PO DAILY 10/16/18 Simvastatin [Zocor] 40 mg PO QHS 10/16/18 Nitrofurantoin Macrocrystal 100 mg PO DAILY 03/03/19 [Nitrofurantoin] metoprolol tartrate 100 mg tablet 100 mg PO BID #180 tab 03/09/19 - Family History Paternal Family History: Family History (Last Reviewed 02/28/19 @ 15:45 by Little Waterman) Father Hypertension Brother CAD (coronary artery disease) Diabetes Maternal Family History: Family History (Last Reviewed 02/28/19 @ 15:45 by Little Waterman) Father Hypertension Brother CAD (coronary artery disease) Diabetes, Hypertension Smoking Status: Never smoker Review of Systems Constitutional: Denies: Anorexia, Chills, Fever Eyes: Denies: Blurred vision, Pain, Redness HEENT: Denies: Difficulty Hearing, Difficulty Swallowing Cardiovascular: Denies: Chest Pain, Chest Pressure Respiratory: Denies: Hemoptysis Skin: Denies: Jaundice - Physical Exam Vital Signs Temp Pulse Resp BP 97.3 F L 62 18 158/70 H 07/20/19 12:04 07/20/19 12:04 07/20/19 12:04 07/20/19 12:04 General: Alert, Oriented x3, Cooperative, No apparent distress HEENT: Atraumatic, Normocephalic Oral: Moist Mucosa Neck: Supple Lungs: Normal air movement Cardiovascular: Regular rate Abdomen: Non Tender, Obese Skin: Ulcer/ Wound Wound Measurements and Assessment WC - Nurse 1 - General Ulcer Measurement Start: 07/08/19 11:29 Freq: Status: Active Protocol: Activity Type Activity Date Activity User E-Sign Co-Sign Detail Recorded Client Recorded Date Recorded By Document 07/18/19 14:50 MW [id number] 07/18/19 15:47 MW Document 07/20/19 12:04 BM [id number] 07/20/19 12:17 [facility] 07/18/19 07/20/19 14:50 12:04 Wound Center Nurse 1 [Ulcer Assessment] #10 RIGHT LATERAL LE -Combined with other wound No No -Current Size (cm) - Length 3.5 3 -Current Size (cm) - Width 2.5 2.1 -Current Size (cm) - Depth 0.3 0.7 -Total Square Cm 8.75 6.3 -Date of Last Picture (Recall this 07/18/19 07/20/19 field) -Photo Taken Yes Yes -Epithelialization None Present None Present -Tunneling No No -Undermining/Tunneling No No -Circular Undermining No No -Exudate Amt Medium Medium -Exudate Type Serosanguineous Serosanguineous -Wound Margin Distinct, Distinct, Outline Outline Attached Attached -Granulation Amt Small (1-33%) Medium (34-66%) -Granulation Quality Red Red -Slough/Fibrin Yes Yes -Necrosis Amt Large (67-100%) Small (1-33%) -Necrotic Tissue Type Adherent Slough Adherent Slough -Structure Exposed N/A -Texture (Cassi-wound Skin Appearance) Assessed, Assessed, Localized Edema Localized Edema ,Scarring -Moisture (Cassi-wound Skin Appearance Assessed,Dry/ Assessed ) Scaly -Color (Cassi-wound Skin Appearance) Assessed,Rubor Erythema -Temperature (Cassi-wound Skin No Abnormality Hot Appearance) (Pt Warm) -Tenderness on Palpation (Cassi-wound Yes Skin Appearance) -Ulcer Cleansing Rinsed/ Rinsed/ Irrigated with Irrigated with Saline Saline -Foul Odor after Cleansing No No -Anesthetic Used 5% Lidocaine Gel #7- LT CALF posterior cluster -Combined with other wound No No -Current Size (cm) - Length 3.6 -Current Size (cm) - Width 4.8 -Current Size (cm) - Depth 0.1 -Total Square Cm 17.28 -Photo Taken No No -Epithelialization None Present None Present -Tunneling No No -Undermining/Tunneling No No -Circular Undermining No No -Exudate Amt Large Medium -Exudate Type Yellow/Green Serosanguineous -Wound Margin Flat & Intact Flat & Intact -Granulation Amt Large (67-100%) Medium (34-66%) -Granulation Quality Red Red -Slough/Fibrin Yes Yes -Necrosis Amt Small (1-33%) Medium (34-66%) -Necrotic Tissue Type Adherent Slough Adherent Slough -Structure Exposed N/A -Texture (Cassi-wound Skin Appearance) Assessed, Assessed Localized Edema ,Scarring -Moisture (Cassi-wound Skin Appearance Assessed, Assessed,Dry/ ) Weeping Scaly -Color (Cassi-wound Skin Appearance) Assessed, Assessed, Hemosiderin Erythema Staining -Temperature (Cassi-wound Skin No Abnormality No Abnormality Appearance) (Pt Warm) (Pt Warm) -Tenderness on Palpation (Cassi-wound No No Skin Appearance) -Ulcer Cleansing soap and water soap and water -Foul Odor after Cleansing No No -Anesthetic Used 4% Lidocaine Solution [Edema Assessment] -Lower Limb Edema Present No Yes -Right Calf (cm) 47.0 47.8 -Right Ankle (cm) 25.5 25.4 -Left Calf (cm) 45.0 43.6 -Left Ankle (cm) 21.0 22.7 WC - Nurse 2 - General Ulcer CM Notes Start: 07/08/19 11:29 Freq: Status: Active Protocol: Activity Type Activity Date Activity User E-Sign Co-Sign Detail Recorded Client Recorded Date Recorded By Document 07/20/19 12:54 MW [id number] 07/20/19 13:13 MW 07/20/19 12:54 Wound Center Nurse 2 [Procedure/Treatment] #10 RIGHT LATERAL LE -Time 12:55 -Correct Patient Yes -Correct Side, Site, Position Yes -Correct Procedure Yes -Procedure Performed Yes -Type of Procedure Debridement -Clinical Debridement Subcutaneous -Post Debridement Size (cm) - Length 3.5 -Post Debridement Size (cm) - Width 2.8 -Post Debridement Size (cm) - Depth 0.6 -Total Square Cm 9.80 -Wound/Ulcer Outcome Not Healed -Ulcer Cleansing Rinsed/ Irrigated with Saline -Foul Odor after Cleansing No -Bioengineered Tissue No -Bleeding Controlled with Pressure -Offloading No -Treatment Response Procedure Tolerated Well #7- LT CALF posterior cluster -Time 12:55 -Correct Patient Yes -Correct Side, Site, Position Yes -Correct Procedure Yes -Procedure Performed Yes -Type of Procedure Debridement -Clinical Debridement Subcutaneous -Post Debridement Size (cm) - Length 3.8 -Post Debridement Size (cm) - Width 5.0 -Post Debridement Size (cm) - Depth 0.2 -Total Square Cm 19.00 -Wound/Ulcer Outcome Not Healed -Ulcer Cleansing Rinsed/ Irrigated with Saline -Foul Odor after Cleansing No -Bioengineered Tissue Yes -Type of bioengineered Tissue NU-SHIELD -Expiration Date 05/07/24 -Product Lot Number [id number] -Percent Used 100 -Saline Lot Number [id number] -Bleeding Controlled with Pressure -Other DONOR #[id number] -Offloading No -Treatment Response Procedure Tolerated Well [See Physician Procedure note for Specifics] Pain Scale: 0-10 Numeric [Pain] -Is Patient Pain Free? Yes Musculoskeletal: No Muscle Wasting Neurological: Cranial nerves II-XII grossly intact Psych/Mental Status: Normal Affect Debridement Note Post-Debridement Measurements/Treatment WC - Nurse 2 - General Ulcer CM Notes Start: 07/08/19 11:29 Freq: Status: Active Protocol: Activity Type Activity Date Activity User E-Sign Co-Sign Detail Recorded Client Recorded Date Recorded By Document 07/08/19 11:46 MW [id number] 07/08/19 11:50 MW Document 07/13/19 11:39 JF [id number] 07/13/19 11:42 JF Document 07/20/19 12:54 MW [id number] 07/20/19 13:13 MW 07/08/19 07/13/19 07/20/19 11:46 11:39 12:54 Wound Center Nurse 2 #10 RIGHT LATERAL LE -Time 12:55 -Correct Patient Yes -Correct Side, Site, Position Yes -Correct Procedure Yes -Procedure Performed Yes -Type of Procedure Debridement -Clinical Debridement Subcutaneous -Post Debridement Size (cm) - Length 3.5 -Post Debridement Size (cm) - Width 2.8 -Post Debridement Size (cm) - Depth 0.6 -Total Square Cm 9.80 -Wound/Ulcer Outcome Not Healed -Ulcer Cleansing Rinsed/ Irrigated with Saline -Foul Odor after Cleansing No -Bioengineered Tissue No -Bleeding Controlled with Pressure -Offloading No -Treatment Response Procedure Tolerated Well #7- LT CALF posterior cluster -Time 11:47 11:39 12:55 -Correct Patient Yes Yes Yes -Correct Side, Site, Position Yes Yes Yes -Correct Procedure Yes Yes Yes -Procedure Performed Yes Yes Yes -Type of Procedure Debridement Debridement Debridement -Clinical Debridement Subcutaneous Subcutaneous Subcutaneous -Post Debridement Size (cm) - Length 3.8 4 3.8 -Post Debridement Size (cm) - Width 11.0 5 5.0 -Post Debridement Size (cm) - Depth 0.2 0.2 0.2 -Total Square Cm 41.80 20 19.00 -Wound/Ulcer Outcome Not Healed Not Healed Not Healed -Ulcer Cleansing Rinsed/ Rinsed/ Rinsed/ Irrigated with Irrigated with Irrigated with Saline Saline Saline -Foul Odor after Cleansing No No No -Bioengineered Tissue No No Yes -Type of bioengineered Tissue -SHIELD -Expiration Date 05/07/24 -Product Lot Number [id number] -Percent Used 100 -Saline Lot Number [id number] -Bleeding Controlled with Pressure Pressure Pressure -Other DONOR #[id number] -Offloading No No No -Treatment Response Procedure Procedure Procedure Tolerated Well Tolerated Well Tolerated Well Pain Scale: 0-10 Numeric Is Patient Pain Free? Yes Yes Yes Wound debrided: Left leg Type of Debridement: Excisional debridement Anesthesia Used: 4% Lidocaine Solution Depth: Down to and including healthy tissue, in the subcutaneous layer Percentage of wound debrided: 100 Instrument Used: 7mm curette Tissue Removed: Slough and devitalized tissue Severity: Fat Layer Exposed Amount of bleeding with debridement: Mild Bleeding Controlled with: Pressure Patient tolerated procedure well - Additional Wound Wound debrided: Right leg Type of Debridement: Excisional debridement Anesthesia Used: 4% Lidocaine Solution Depth: Down to and including healthy tissue, in the subcutaneous layer Percentage of wound debrided: 100 Instrument Used: 7mm curette Tissue Removed: Slough and devitalized tissue Severity: Fat Layer Exposed Amount of bleeding with debridement: Mild Bleeding Controlled with: Pressure Patient tolerated procedure: Patient tolerated procedure well Assessment/Plan Active Problems (Last Reviewed 02/28/19 @ 15:45 by Little Waterman) Venous insufficiency of both lower extremities (Acute) Wound of right lower extremity (Acute) Traumatic, penetrating with fat layer exposed. 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 Traumatic right lower extremity wound with fat layer exposed. Emily betes mellitus. Plan: Debridement done as documented above. Procedure was well-tolerated. Initial application of Nushield to left lower extremity done today using 100% of product. Moistened with saline and covered with Adaptic touch. Secured with Steri-Strips. Advised to leave in place for a week. Continue Fibracol to right lower extremity. Cultures taken as well. Continue Tubigrip for edema management. Did not tolerate 3M wrap. Venous and vascular studies ordered. Increase protein intake, elevate lower extremities, exercise and avoid idle standing. Her questions were answered and she was advised to call with any further questions or concerns. This note was generated with [employer] dictation software. It may contain incorrect words, spelling, and punctuation that were not noted in checking the note before signing.
[2019-07-27 11:12] VITALS: BP 167/79; PULSE 73; RESP 16; TEMP 36; BMI 38.4
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
== END 2019-07-30 23:59 ==
LOC: WC 11:00
PROVIDERS: Family Provider Nurse Practitioner; PCP Nurse Practitioner; Referring Provider Internal Medicine; Visit Provider Internal Medicine
DX: E11.622 Type 2 diabetes mellitus with other skin ulcer (principal); L97.222 Non-pressure chronic ulcer of left calf with fat layer exposed; E11.51 Type 2 diabetes mellitus with diabetic peripheral angiopathy without gangrene; I89.0 Lymphedema, not elsewhere classified; E66.01 Morbid (severe) obesity due to excess calories; I10 Essential (primary) hypertension; I25.10 Atherosclerotic heart disease of native coronary artery without angina pectoris; I48.0 Paroxysmal atrial fibrillation; E78.5 Hyperlipidemia, unspecified; I83.018 Varicose veins of right lower extremity with ulcer other part of lower leg; L97.812 Non-pressure chronic ulcer of other part of right lower leg with fat layer exposed; I83.022 Varicose veins of left lower extremity with ulcer of calf; Z86.718 Personal history of other venous thrombosis and embolism; Z68.42 Body mass index [BMI] 45.0-49.9, adult; Z79.899 Other long term (current) drug therapy; Z79.52 Long term (current) use of systemic steroids; Z79.4 Long term (current) use of insulin; Z79.82 Long term (current) use of aspirin
CPT/HCPCS: 11042; 11045; 15271; 29581; 87070; 87075; 87076; 87077; 87186; 87205; 99213; Q4160; G0463

== ENCOUNTER 2019-08-25 11:45 | Outpatient (RCR) | payer MEDICARE, SELFPAY ==
[2016-12-05 15:47] VITALS: BMI 35.6
[2019-07-31 00:39] VITALS: BP 167/79; PULSE 73; RESP 16; TEMP 36
--- NOTE | 2019-08-02 09:42 | ART_ITS ---
Reason For Study: PAD Procedure A bilateral lower extremity continuous wave Doppler with analog waveform analysis,segmental pressures,and ankle brachial indexes without exercise. Left Segmental Pressures Left brachial= 159mmHg. Left digit = 79 mmHg. PLIER WORKER and DPA are noncompressible. The left dorsalis pedis waveforms are triphasic. The left posterior tibial artery waveforms are triphasic. Right Segmental Pressures Right brachial= 140mmHg. Right digit = 76 mmHg. The right posterior tibial artery waveforms are biphasic. The right dorsalis pedis waveforms are triphasic. PLIER WORKER and DPA are noncompressible. Indices PLIER WORKER and DPA are noncompressible. The right digital-brachial index is .48. PLIER WORKER and DPA are noncompressible. The left digital-brachial index is .5. Interpretation Summary Triphasic and biphasic Doppler waveforms are noted at ankle level on the right. Triphasic Doppler waveforms are noted at ankle level on the left. Pulse-volume recording waveform amplitudes are diminished at digital level bilaterally. Resting ankle-brachial indices could not be calculated on either side due to the non-compressibility of the vasculature at ankle level bilaterally. Digital- brachial indices are moderately diminished bilaterally. There is evidence of arterial calcification at ankle level bilaterally, rendering the vasculature non-compressible. Therefore, resting ankle-brachial indices could not be determined. Based upon digital-brachial indices, there is evidence of moderate impairment of arterial flow at digital level bilaterally. Ordering Physician: Antwan Enriquez Referring Physician: Antwan Enriquez Performed By: FLORES LOGAN [facility]
--- NOTE | 2019-08-02 09:42 | VDLE_ITS ---
Reason For Study: non-healing wound RIGHT LEFT GSV is normal. GSV is normal. CFV is compressible, spontaneous, phasic, CFV is compressible, spontaneous, phasic, competent and demonstrates normal competent, and demonstrates normal augmentation. augmentation. FV is compressible, spontaneous, phasic, FV is compressible, spontaneous, phasic, competent and demonstrates normal competent and demonstrates normal augmentation. augmentation. POP V is compressible, spontaneous, phasic, POP V is compressible, spontaneous, phasic, competent and demonstrates normal competent and demonstrates normal augmentation. augmentation. T/P Trunk is compressible. T/P Trunk is compressible. PTV is compressible. PTV is compressible. RT PerV is compressible. LT PerV is compressible. SFJ is competent and measures 1.1 x 1.1 cm. SFJ is INCOMPETENT and measures .99 x 1.22 GSV proximal thigh measures .79 x .82 cm. cm. GSV at knee measures .4 x .43 cm. GSV proximal thigh measures .75 x .67 cm. GSV above knee is competent. GSV at knee measures .68 x .71 cm. GSV below knee is INCOMPETENT for greater GSV INCOMPETENT throughout for greater than than 0.5 seconds. 0.5 seconds. SSV proximal calf is competent and SSV proximal calf is competent and measures .35 x .37 cm. measures .53 x .5 cm. Procedure Exam performed in department. The exam was diagnostic. Interpretation Summary Deep veins of the lower extremities are bilaterally patent and compressible segmentally. There is no evidence of deep vein thrombosis on either side. Valvular competence appears intact within the proximal deep venous systems bilaterally. The great saphenous veins appear bilaterally patent and compressible segmentally. The right sapheno-femoral junction is competent . The left sapheno-femoral junction is incompetent . The right great saphenous vein appears competent above the knee. The right great saphenous vein appears incompetent below the knee. The left great saphenous vein appears segmentally incompetent. Small saphenous veins are patent and competent bilaterally. Ordering Physician: Antwan Enriquez Performed By: Todd Rosenbaum RVT
[2019-08-04 10:28] VITALS: RESP 18; TEMP 36.4; BMI 38.4
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
[2019-08-11 11:58] VITALS: BP 151/75; PULSE 64; RESP 18; TEMP 36.6; BMI 38.4
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
[2019-08-18 11:00] VITALS: BP 164/72; PULSE 62; RESP 16; TEMP 36.6; BMI 38.4
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
[2019-08-25 12:05] VITALS: BP 190/75; RESP 16; TEMP 36.2; BMI 38.4
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
== END 2019-08-29 23:59 ==
LOC: WC 11:45
PROVIDERS: Family Provider Nurse Practitioner; PCP Nurse Practitioner; Referring Provider Internal Medicine; Visit Provider Internal Medicine
DX: E11.622 Type 2 diabetes mellitus with other skin ulcer (principal); L97.222 Non-pressure chronic ulcer of left calf with fat layer exposed; E11.51 Type 2 diabetes mellitus with diabetic peripheral angiopathy without gangrene; R60.0 Localized edema; I87.2 Venous insufficiency (chronic) (peripheral); L97.812 Non-pressure chronic ulcer of other part of right lower leg with fat layer exposed; I89.0 Lymphedema, not elsewhere classified; Z91.19 Patient's noncompliance with other medical treatment and regimen; L97.822 Non-pressure chronic ulcer of other part of left lower leg with fat layer exposed
CPT/HCPCS: 11042; 15271; 93923; 93970; Q4160

== ENCOUNTER 2019-09-22 10:30 | Outpatient (RCR) | payer MEDICARE, SELFPAY ==
[2016-12-05 15:47] VITALS: BMI 35.6
[2019-08-30 00:40] VITALS: BP 190/75; PULSE 62; RESP 16; TEMP 36.2
[2019-09-07 10:58] VITALS: BP 155/68; PULSE 65; RESP 20; TEMP 35.9; BMI 38.4
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
[2019-09-22 10:55] VITALS: BP 171/90; PULSE 85; RESP 18; TEMP 36.3; BMI 38.4
--- NOTE | 2019-09-22 11:36 | PN.PCM_ITS ---
(1) Ulcer of right lower extremity with fat layer exposed Status: Acute Current Visit: Yes Code(s): L97.912 - Non-pressure chronic ulcer of unspecified part of right lower leg with fat layer exposed (2) DM2 (diabetes mellitus, type 2) Status: Chronic Current Visit: Yes Code(s): E11.9 - Type 2 diabetes mellitus without complications (3) Ulcer of left lower extremity with fat layer exposed Status: Chronic Current Visit: Yes Code(s): L97.922 - Non-pressure chronic ulcer of unspecified part of left lower leg with fat layer exposed Comment: mixed venous arterial left posterior calf (4) Venous insufficiency of both lower extremities Status: Chronic Current Visit: No Code(s): I87.2 - Venous insufficiency (chronic) (peripheral) (5) Wound of right lower extremity Status: Chronic Current Visit: Yes Code(s): S81.801A - Unspecified open wound, right lower leg, initial encounter Comment: Traumatic, penetrating with fat layer exposed. Type of Wound Date of Service: 09/22/19 Chief Complaint: Non healing Ulcers History of Wound: Ms Stapleton is a 73-year-old with past medical history as stated above well-known to the wound center and is being managed for chronic v enous left lower extremity ulcer. She however now presents with a right lower extremity wound after she was hit by a car door. Was seen as a nurse visit 2 days ago, case was discussed with me and she was advised to apply Fibracol to the wound. 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 press tender short goods but denies copious drainage, chills, fever otherwise feeling of unwell. Now approved for nushield to left lower extremity ulcer. She has had 5 applications of Apligraf with some improvement. Did poorly on conservative with management in the past. Progress of Wound: Right lower extremity ulcers are healed. Left navas now clustered. has had 7 applications of Nushield so far. - Physical Exam Vital Signs Temp Pulse Resp BP 97.4 F L 85 18 171/90 H 09/22/19 10:55 09/22/19 10:55 09/22/19 10:55 09/22/19 10:55 General: Alert, Oriented x3, Cooperative, No apparent distress HEENT: Atraumatic, Normocephalic Oral: Moist Mucosa Neck: Supple Lungs: Normal air movement Abdomen: Non Tender Extremities: No cyanosis, Edema Wound Measurements and Assessment WC - Nurse 1 - General Ulcer Measurement Start: 09/07/19 10:58 Freq: Status: Active Protocol: Activity Type Activity Date Activity User E-Sign Co-Sign Detail Recorded Client Recorded Date Recorded By Document 09/22/19 10:55 DL [id number] 09/22/19 11:08 DL 09/22/19 10:55 Wound Center Nurse 1 [Ulcer Assessment] #12- L NAVAS -Current Size (cm) - Length 2.5 -Current Size (cm) - Width 9.4 -Current Size (cm) - Depth 0.1 -Total Square Cm 23.50 -Photo Taken No -Exudate Amt Small -Exudate Type Serosanguineous -Wound Margin Distinct, Outline Attached -Granulation Amt Large (67-100%) -Granulation Quality Red -Necrosis Amt Small (1-33%) -Necrotic Tissue Type Adherent Slough -Structure Exposed N/A -Texture (Cassi-wound Skin Appearance) Scarring -Moisture (Cassi-wound Skin Appearance No Abnormality ) -Color (Cassi-wound Skin Appearance) Hemosiderin Staining -Temperature (Cassi-wound Skin No Abnormality Appearance) (Pt Warm) -Tenderness on Palpation (Cassi-wound No Skin Appearance) -Ulcer Cleansing Wound Cleanser -Foul Odor after Cleansing No -Anesthetic Used 4% Lidocaine Solution #10 RIGHT LATERAL LE -Current Size (cm) - Length 0 -Current Size (cm) - Width 0 -Current Size (cm) - Depth 0 -Total Square Cm 0 -Photo Taken Yes -Exudate Amt None Present -Wound Margin Flat & Intact -Granulation Amt Large (67-100%) -Granulation Quality [place] -Necrosis Amt None Present (0 %) -Structure Exposed N/A -Texture (Cassi-wound Skin Appearance) Scarring -Moisture (Cassi-wound Skin Appearance No Abnormality ) -Color (Cassi-wound Skin Appearance) Hemosiderin Staining -Temperature (Cassi-wound Skin No Abnormality Appearance) (Pt Warm) -Tenderness on Palpation (Cassi-wound No Skin Appearance) -Ulcer Cleansing Wound Cleanser -Foul Odor after Cleansing No #7- LT CALF posterior cluster -Current Size (cm) - Length 4.4 -Current Size (cm) - Width 3.2 -Current Size (cm) - Depth 0.1 -Total Square Cm 14.08 -Photo Taken No -Exudate Amt Small -Exudate Type Serosanguineous -Wound Margin Distinct, Outline Attached -Granulation Amt Medium (34-66%) -Granulation Quality Red -Necrosis Amt Medium (34-66%) -Necrotic Tissue Type Adherent Slough -Structure Exposed N/A -Texture (Cassi-wound Skin Appearance) Localized Edema ,Scarring -Moisture (Cassi-wound Skin Appearance No Abnormality ) -Color (Cassi-wound Skin Appearance) Hemosiderin Staining -Temperature (Cassi-wound Skin No Abnormality Appearance) (Pt Warm) -Tenderness on Palpation (Cassi-wound No Skin Appearance) -Ulcer Cleansing Wound Cleanser -Foul Odor after Cleansing No -Anesthetic Used 4% Lidocaine Solution WC - Nurse 2 - General Ulcer CM Notes Start: 09/07/19 10:58 Freq: Status: Active Protocol: Activity Type Activity Date Activity User E-Sign Co-Sign Detail Recorded Client Recorded Date Recorded By Document 09/22/19 11:22 MW [id number] 09/22/19 11:34 MW 09/22/19 11:22 Wound Center Nurse 2 [Procedure/Treatment] #12- L NAVAS -Time 11:23 -Correct Patient Yes -Correct Side, Site, Position Yes -Correct Procedure Yes -Procedure Performed Yes -Type of Procedure Debridement -Clinical Debridement Subcutaneous -Post Debridement Size (cm) - Length 1.0 -Post Debridement Size (cm) - Width 4.5 -Post Debridement Size (cm) - Depth 0.1 -Total Square Cm 4.50 -Wound/Ulcer Outcome Not Healed -Ulcer Cleansing Rinsed/ Irrigated with Saline -Foul Odor after Cleansing No -Bioengineered Tissue No -Bleeding Controlled with Pressure -Offloading No -Treatment Response Procedure Tolerated Well #10 RIGHT LATERAL LE -Time 11:22 -Correct Patient Yes -Correct Side, Site, Position Yes -Correct Procedure Yes -Procedure Performed No -Post Debridement Size (cm) - Length 0 -Post Debridement Size (cm) - Width 0 -Post Debridement Size (cm) - Depth 0 -Total Square Cm 0 -Wound/Ulcer Outcome Healed- Epithelialized #7- LT CALF posterior cluster -Time 11:23 -Correct Patient Yes -Correct Side, Site, Position Yes -Correct Procedure Yes -Procedure Performed Yes -Type of Procedure Debridement -Clinical Debridement Subcutaneous -Post Debridement Size (cm) - Length 4.0 -Post Debridement Size (cm) - Width 3.5 -Post Debridement Size (cm) - Depth 0.2 -Total Square Cm 14.00 -Wound/Ulcer Outcome Not Healed -Ulcer Cleansing Rinsed/ Irrigated with Saline -Foul Odor after Cleansing No -Bioengineered Tissue Yes -Type of bioengineered Tissue NU-SHIELD -Expiration Date 06/22/24 -Product Lot Number [id number] -Bleeding Controlled with Pressure -Other donor #[id number] -Offloading No -Treatment Response Procedure Tolerated Well [See Physician Procedure note for Specifics] Pain Scale: 0-10 Numeric [Pain] -Is Patient Pain Free? Yes Musculoskeletal: No Muscle Wasting Neurological: Cranial nerves II-XII grossly intact Psych/Mental Status: Normal Affect Debridement Note Post-Debridement Measurements/Treatment WC - Nurse 2 - General Ulcer CM Notes Start: 09/07/19 10:58 Freq: Status: Active Protocol: Activity Type Activity Date Activity User E-Sign Co-Sign Detail Recorded Client Recorded Date Recorded By Document 09/07/19 11:24 MW [id number] 09/07/19 11:45 MW Document 09/22/19 11:22 MW [id number] 09/22/19 11:34 MW 09/07/19 09/22/19 11:24 11:22 Wound Center Nurse 2 #12- L NAVAS -Time 11:25 11:23 -Correct Patient Yes Yes -Correct Side, Site, Position Yes Yes -Correct Procedure Yes Yes -Procedure Performed Yes Yes -Type of Procedure Debridement Debridement -Clinical Debridement Subcutaneous Subcutaneous -Post Debridement Size (cm) - Length 0.4 1.0 -Post Debridement Size (cm) - Width 0.8 4.5 -Post Debridement Size (cm) - Depth 0.1 0.1 -Total Square Cm 0.32 4.50 -Wound/Ulcer Outcome Not Healed Not Healed -Ulcer Cleansing Rinsed/ Rinsed/ Irrigated with Irrigated with Saline Saline -Foul Odor after Cleansing No No -Bioengineered Tissue No No -Bleeding Controlled with Pressure Pressure -Offloading No No -Treatment Response Procedure Procedure Tolerated Well Tolerated Well #11- R MED LE -Time 11:25 -Correct Patient Yes -Correct Side, Site, Position Yes -Correct Procedure Yes -Procedure Performed No -Post Debridement Size (cm) - Length 0 -Post Debridement Size (cm) - Width 0 -Post Debridement Size (cm) - Depth 0 -Total Square Cm 0 -Wound/Ulcer Outcome Healed- Epithelialized #10 RIGHT LATERAL LE -Time 11: 11:22 -Correct Patient Yes Yes -Correct Side, Site, Position Yes Yes -Correct Procedure Yes Yes -Procedure Performed Yes No -Type of Procedure Debridement -Clinical Debridement Subcutaneous -Post Debridement Size (cm) - Length 1.2 0 -Post Debridement Size (cm) - Width 0.8 0 -Post Debridement Size (cm) - Depth 0.1 0 -Total Square Cm 0.96 0 -Wound/Ulcer Outcome Not Healed Healed- Epithelialized -Ulcer Cleansing Rinsed/ Irrigated with Saline -Foul Odor after Cleansing No -Bioengineered Tissue No -Bleeding Controlled with Pressure -Offloading No -Treatment Response Procedure Tolerated Well #7- LT CALF posterior cluster -Time 11: 11:23 -Correct Patient Yes Yes -Correct Side, Site, Position Yes Yes -Correct Procedure Yes Yes -Procedure Performed Yes Yes -Type of Procedure Debridement Debridement -Clinical Debridement Subcutaneous Subcutaneous -Post Debridement Size (cm) - Length 4.0 4.0 -Post Debridement Size (cm) - Width 3.6 3.5 -Post Debridement Size (cm) - Depth 0.1 0.2 -Total Square Cm 14.40 14.00 -Wound/Ulcer Outcome Not Healed Not Healed -Ulcer Cleansing Rinsed/ Rinsed/ Irrigated with Irrigated with Saline Saline -Foul Odor after Cleansing No No -Bioengineered Tissue Yes Yes -Type of bioengineered Tissue NU-SHIELD NU-SHIELD -Expiration Date 06/10/24 06/22/24 -Product Lot Number [id number] -Percent Used 100 -Saline Lot Number [id number] -Bleeding Controlled with Pressure Pressure -Other DOROR #[id number] donor #[id number] -Offloading No No -Treatment Response Procedure Procedure Tolerated Well Tolerated Well Pain Scale: 0-10 Numeric Is Patient Pain Free? Yes Yes Wound debrided: Left navas cluster Type of Debridement: Excisional debridement Anesthesia Used: 4% Lidocaine Solution Depth: Down to and including healthy tissue, in the subcutaneous layer Percentage of wound debrided: 100 Instrument Used: 5mm curette Tissue Removed: Slough and devitalized tissue Severity: Fat Layer Exposed Amount of bleeding with debridement: Mild Bleeding Controlled with: Pressure Patient tolerated procedure well - Additional Wound Wound debrided: Left Calf Type of Debridement: Excisional debridement Anesthesia Used: 4% Lidocaine Solution Depth: Down to and including healthy tissue, in the subcutaneous layer Percentage of wound debrided: 100 Instrument Used: 5mm curette Tissue Removed: Slough and devitalized tissue Severity: Fat Layer Exposed Amount of bleeding with debridement: Mild Bleeding Controlled with: Pressure Patient tolerated procedure: Patient tolerated procedure well Assessment/Plan Active Problems (Last Reviewed 02/28/19 @ 15:45 by Little Waterman) Wound of right lower extremity (Chronic) Traumatic, penetrating with fat layer exposed. Ulcer of right lower extremity with fat layer exposed (Acute) Ulcer of left lower extremity with fat layer exposed (Chronic) mixed venous arterial left posterior calf DM2 (diabetes mellitus, type 2) (Chronic) Assessment: Nonhealing recurrent left lower extremity ulceration secondary to lymphedema. Left anterior lower extremity ulcer. Traumatic right lower extremity wound with fat layer exposed. Right medial leg ulcer with fat layer exposed. Diabetes mellitus. Plan: Debridement done as documented above. Procedure was well-tolerated. 8th application of Nushield to left lower extremity (posterior) done today using 100% of product. Moistened with saline and covered with Adaptic touch. Advised to leave in place for 1 week. Continue Fibrocol to left navas cluster ulcers. Continue double layer Tubigrip for edema management. Compliance strongly encouraged. Again, not open to 3M. She admits to poor compliance with compression. Arterial studies reviewed, MANNY with noncompressible vessels and venous studies confirmatory again of venous insufficiency. Increased protein intake, elevate lower extremities, exercise and avoid idle standing. Her questions were answered and she was advised to call with any further questions or concerns. Follow-up in 1 week. This note was generated with [employer] dictation software. It may contain incorrect words, spelling, and punctuation that were not noted in checking the note before signing.
== END 2019-09-29 23:59 ==
LOC: WC 10:30
PROVIDERS: Family Provider Nurse Practitioner; PCP Nurse Practitioner; Referring Provider Internal Medicine; Visit Provider Internal Medicine
DX: E11.622 Type 2 diabetes mellitus with other skin ulcer (principal); L97.222 Non-pressure chronic ulcer of left calf with fat layer exposed; L97.812 Non-pressure chronic ulcer of other part of right lower leg with fat layer exposed; L97.822 Non-pressure chronic ulcer of other part of left lower leg with fat layer exposed; I89.0 Lymphedema, not elsewhere classified
CPT/HCPCS: 11042; 15271; Q4160

== ENCOUNTER → 2019-10-24 17:28 | Outpatient (CLI) | payer MEDICARE, SELFPAY ==
[2016-12-05 15:47] VITALS: BMI 35.6
[2019-10-12 11:39] VITALS: BMI 39.1
== END ==
PROVIDERS: Family Provider Nurse Practitioner; PCP Nurse Practitioner; Referring Provider Urology; Visit Provider Urology
DX: N39.0 Urinary tract infection, site not specified (principal)
CPT/HCPCS: 87077; 87086; 87088; 87186

== ENCOUNTER 2019-10-26 11:30 | Outpatient (RCR) | payer MEDICARE, SELFPAY ==
[2016-12-05 15:47] VITALS: BMI 35.6
[2019-09-30 00:42] VITALS: BP 171/90; PULSE 85; RESP 18; TEMP 36.3; BMI 39.1
[2019-09-30 09:43] VITALS: BP 164/79; PULSE 99; RESP 18; TEMP 37.1; BMI 39.1
--- NOTE | 2019-09-30 10:57 | PN.PCM_ITS ---
(1) Cellulitis Status: Acute Current Visit: Yes Code(s): L03.90 - Cellulitis, unspecified (2) Atherosclerotic heart disease of [place] coronary artery without angina pectoris Status: Chronic Current Visit: Yes Qualifiers: Code(s): I25.10 - Atherosclerotic heart disease of [place] coronary artery without angina pectoris (3) Chronic renal failure, stage 4 (severe) Status: Chronic Current Visit: Yes Code(s): N18.4 - Chronic kidney disease, stage 4 (severe) (4) DM2 (diabetes mellitus, type 2) Status: Chronic Current Visit: Yes Code(s): E11.9 - Type 2 diabetes mellitus without complications (5) PVD (peripheral vascular disease) Status: Chronic Current Visit: Yes Code(s): I73.9 - Peripheral vascular disease, unspecified (6) Venous insufficiency of both lower extremities Status: Chronic Current Visit: Yes Code(s): I87.2 - Venous insufficiency (chronic) (peripheral) Type of Wound Date of Service: 09/30/19 Chief Complaint: Non healing Ulcers History of Wound: Ms Stapleton is a 73-year-old with past medical history as stated above well-known to the wound center and is being managed for chronic venous left lower extremity ulcer. She however now presents with a right lower extremity wound after she was hit by a car door. Was seen as a nurse visit 2 days ago, case was discussed with me and she was advised to apply Fibracol to the wound. 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 spray machine tender but denies copious drainage, chills, fever otherwise feeling of unwell. Now approved for [facility] to left lower extremity ulcer. She has had 5 applications of Apligraf with some improvement. Did poorly on conservative with management in the past. Progress of Wound: Left anterior navas is almost healed very small and superficial less than one 0.1 depth. The left posterior leg is hyper granulated so before putting on new shield #9 I hit it with nitrous sticks and then applied the Adaptic touch over to keep her fingers out of it and from itching. Patient tolerated procedure well and seems to be progressing well. This was a courtesy visit - Physical Exam Vital Signs Temp Pulse Resp BP 98.7 F 99 18 164/79 H 09/30/19 09:43 09/30/19 09:43 09/30/19 09:43 11/01/19 09:43 General: Oriented x3, Cooperative, Well developed HEENT: Atraumatic, PERRLA Oral: Moist Mucosa Neck: Supple, No JVD Lungs: Clear to auscultation, Normal air movement Cardiovascular: Regular rate, Regular Rhythm Abdomen: Bowel Sounds Present, Soft, Non Tender, No Hepato-splenomegaly Extremities: No clubbing, No edema Wound Measurements and Assessment WC - Nurse 1 - General Ulcer Measurement Start: 09/30/19 09:43 Freq: Status: Active Protocol: Activity Type Activity Date Activity User E-Sign Co-Sign Detail Recorded Client Recorded Date Recorded By Document 09/30/19 09:43 RB [id number] 09/30/19 09:54 RB 09/30/19 09:43 Wound Center Nurse 1 [Ulcer Assessment] #12- L NAVAS -Combined with other wound No -Current Size (cm) - Length 1 -Current Size (cm) - Width 4 -Current Size (cm) - Depth 0.1 -Total Square Cm 4 -Tunneling No -Undermining/Tunneling No -Circular Undermining No -Exudate Amt Small -Exudate Type Serosanguineous -Wound Margin Flat & Intact -Granulation Amt Medium (34-66%) -Granulation Quality [place] -Slough/Fibrin Yes -Necrosis Amt Small (1-33%) -Necrotic Tissue Type Adherent Slough -Structure Exposed N/A -Texture (Cassi-wound Skin Appearance) Assessed, Scarring -Moisture (Cassi-wound Skin Appearance Assessed ) -Temperature (Cassi-wound Skin No Abnormality Appearance) (Pt Warm) -Tenderness on Palpation (Cassi-wound No Skin Appearance) -Ulcer Cleansing Wound Cleanser -Foul Odor after Cleansing No -Anesthetic Used 4% Lidocaine Solution #7- LT CALF posterior cluster -Combined with other wound No -Current Size (cm) - Length 4 -Current Size (cm) - Width 3.5 -Current Size (cm) - Depth 0.1 -Total Square Cm 14.0 -Tunneling No -Undermining/Tunneling No -Circular Undermining No -Exudate Amt Small -Exudate Type Serosanguineous -Wound Margin Fibrotic Scar, Thickened Scar -Granulation Amt Medium (34-66%) -Granulation Quality [place] -Slough/Fibrin Yes -Necrosis Amt Small (1-33%) -Necrotic Tissue Type Adherent Slough -Structure Exposed N/A -Texture (Cassi-wound Skin Appearance) Assessed, Scarring -Moisture (Cassi-wound Skin Appearance Assessed ) -Color (Cassi-wound Skin Appearance) Assessed -Temperature (Cassi-wound Skin No Abnormality Appearance) (Pt Warm) -Tenderness on Palpation (Cassi-wound No Skin Appearance) -Ulcer Cleansing Wound Cleanser -Foul Odor after Cleansing No -Anesthetic Used 4% Lidocaine Solution [Edema Assessment] -Lower Limb Edema Present Yes -Left Calf (cm) 38 -Left Ankle (cm) 21.5 WC - Nurse 2 - General Ulcer CM Notes Start: 09/30/19 09:43 Freq: Status: Active Protocol: Activity Type Activity Date Activity User E-Sign Co-Sign Detail Recorded Client Recorded Date Recorded By Document 09/30/19 10:08 MW [id number] 09/30/19 10:22 MW 09/30/19 10:08 Wound Center Nurse 2 [Procedure/Treatment] #12- L NAVAS -Time 10:09 -Correct Patient Yes -Correct Side, Site, Position Yes -Correct Procedure Yes -Procedure Performed Yes -Type of Procedure Debridement -Clinical Debridement Subcutaneous -Post Debridement Size (cm) - Length 0.5 -Post Debridement Size (cm) - Width 1.3 -Post Debridement Size (cm) - Depth 0.1 -Total Square Cm 0.65 -Wound/Ulcer Outcome Not Healed -Ulcer Cleansing Rinsed/ Irrigated with Saline -Foul Odor after Cleansing No -Bioengineered Tissue No -Bleeding Controlled with Pressure -Offloading No -Treatment Response Procedure Tolerated Well #7- LT CALF posterior cluster -Time 10:09 -Correct Patient Yes -Correct Side, Site, Position Yes -Correct Procedure Yes -Procedure Performed Yes -Type of Procedure Debridement -Clinical Debridement Subcutaneous -Post Debridement Size (cm) - Length 3.8 -Post Debridement Size (cm) - Width 3.8 -Post Debridement Size (cm) - Depth 0.1 -Total Square Cm 14.44 -Wound/Ulcer Outcome Not Healed -Ulcer Cleansing Rinsed/ Irrigated with Saline -Foul Odor after Cleansing No -Bioengineered Tissue Yes -Type of bioengineered Tissue NU-SHIELD -Expiration Date 06/22/24 -Product Lot Number [id number] -Percent Used 100 -Bleeding Controlled with Pressure -Other HYDROGEL LOT# [id number] -Offloading No -Treatment Response Procedure Tolerated Well [See Physician Procedure note for Specifics] Pain Scale: 0-10 Numeric [Pain] -Is Patient Pain Free? Yes Musculoskeletal: No Tenderness to Palpation of Joints or Extremities Lymphatic: No Cervical, Supraclavicular, or Inguinal Adenopathy Neurological: Cranial nerves II-XII grossly intact, Neuro grossly intact Psych/Mental Status: Normal Affect, Appropriate Debridement Note Post-Debridement Measurements/Treatment WC - Nurse 2 - General Ulcer CM Notes Start: 09/30/19 09:43 Freq: Status: Active Protocol: Activity Type Activity Date Activity User E-Sign Co-Sign Detail Recorded Client Recorded Date Recorded By Document 09/30/19 10:08 MW [id number] 09/30/19 10:22 MW 09/30/19 10:08 Wound Center Nurse 2 #12- L NAVAS -Time 10:09 -Correct Patient Yes -Correct Side, Site, Position Yes -Correct Procedure Yes -Procedure Performed Yes -Type of Procedure Debridement -Clinical Debridement Subcutaneous -Post Debridement Size (cm) - Length 0.5 -Post Debridement Size (cm) - Width 1.3 -Post Debridement Size (cm) - Depth 0.1 -Total Square Cm 0.65 -Wound/Ulcer Outcome Not Healed -Ulcer Cleansing Rinsed/ Irrigated with Saline -Foul Odor after Cleansing No -Bioengineered Tissue No -Bleeding Controlled with Pressure -Offloading No -Treatment Response Procedure Tolerated Well #7- LT CALF posterior cluster -Time 10:09 -Correct Patient Yes -Correct Side, Site, Position Yes -Correct Procedure Yes -Procedure Performed Yes -Type of Procedure Debridement -Clinical Debridement Subcutaneous -Post Debridement Size (cm) - Length 3.8 -Post Debridement Size (cm) - Width 3.8 -Post Debridement Size (cm) - Depth 0.1 -Total Square Cm 14.44 -Wound/Ulcer Outcome Not Healed -Ulcer Cleansing Rinsed/ Irrigated with Saline -Foul Odor after Cleansing No -Bioengineered Tissue Yes -Type of bioengineered Tissue NU-SHIELD -Expiration Date 06/22/24 -Product Lot Number [id number] -Percent Used 100 -Bleeding Controlled with Pressure -Other HYDROGEL LOT# [id number] -Offloading No -Treatment Response Procedure Tolerated Well Pain Scale: 0-10 Numeric Is Patient Pain Free? Yes Wound debrided: Left anterior navas Type of Debridement: Excisional debridement Anesthesia Used: 5% Lidocaine Gel Depth: Down to and including healthy tissue Percentage of wound debrided: 100 Instrument Used: 5mm curette Severity: Limited To Skin Breakdown Amount of bleeding with debridement: Mild Bleeding Controlled with: Compression and gauze - Additional Wound Wound debrided: Posterior calf Laterality: Left Type of Debridement: Excisional debridement Anesthesia Used: 5% Lidocaine Gel Depth: Down to and including healthy tissue, in the subcutaneous layer Percentage of wound debrided: 100 Instrument Used: 5mm curette, - - Silver nitrate Tissue Removed: Fibrin and some slough Severity: Limited To Skin Breakdown Amount of bleeding with debridement: Mild Bleeding Controlled with: Compression and gauze, Silver Nitrate Assessment/Plan Active Problems (Last Reviewed 02/28/19 @ 15:45 by Little Waterman) Venous insufficiency of both lower extremities (Chronic) Atherosclerotic heart disease of [place] coronary artery without angina pectoris (Chronic) Cellulitis (Acute) Chronic renal failure, stage 4 (severe) (Chronic) PVD (peripheral vascular disease) (Chronic) DM2 (diabetes mellitus, type 2) (Chronic) Assessment: Nonhealing recurrent left lower extremity ulceration secondary to lymphedema. Left anterior lower extremity ulcer. Traumatic right lower extremity wound with fat layer exposed. Right medial leg ulcer with fat layer exposed. Diabetes mellitus. Plan: Debridement done as documented above. Procedure was well-tolerated. 9th application of Nushield to left lower extremity (posterior) done today using 100% of product. Moistened with saline and covered with Adaptic touch. Advised to leave in place for 1 week. Continue Fibrocol to left navas cluster ulcers. Continue double layer Tubigrip for edema management. Compliance strongly encouraged. Again, not open to 3M. She admits to poor compliance with compression. Arterial studies reviewed, MANNY with noncompressible vessels and venous studies confirmatory again of venous insufficiency. Increased protein intake, elevate lower extremities, exercise and avoid idle standing. Her questions were answered and she was advised to call with any further questions or concerns. Follow-up in 1 week. This note was generated with [employer] software. It may contain incorrect words, spelling, and punctuation that were not noted in checking the note before signing.
[2019-10-07 11:40] VITALS: BP 166/87; PULSE 90; RESP 18; TEMP 36.4; BMI 39.1
--- NOTE | 2019-10-07 12:02 | PCM.WC.PN ---
(1) Cellulitis Status: Acute Current Visit: Yes Code(s): L03.90 - Cellulitis, unspecified (2) Atherosclerotic heart disease of [place] coronary artery without angina pectoris Status: Chronic Current Visit: Yes Qualifiers: Code(s): I25.10 - Atherosclerotic heart disease of [place] coronary artery without angina pectoris (3) Chronic renal failure, stage 4 (severe) Status: Chronic Current Visit: Yes Code(s): N18.4 - Chronic kidney disease, stage 4 (severe) (4) DM2 (diabetes mellitus, type 2) Status: Chronic Current Visit: Yes Code(s): E11.9 - Type 2 diabetes mellitus without complications (5) PVD (peripheral vascular disease) Status: Chronic Current Visit: Yes Code(s): I73.9 - Peripheral vascular disease, unspecified (6) Venous insufficiency of both lower extremities Status: Chronic Current Visit: Yes Code(s): I87.2 - Venous insufficiency (chronic) (peripheral) Type of Wound Date of Service: 10/07/19 Chief Complaint: Non healing Ulcers History of Wound: Ms Stapleton is a 73-year-old with past medical history as stated above well-known to the wound center and is being managed for chronic venous left lower extremity ulcer. She however now presents with a right lower extremity wound after she was hit by a car door. Was seen as a nurse visit 2 days ago, case was discussed with me and she was advised to apply Fibracol to the wound. Some improvement noted her case reviewer/nurse and patient. moisture machine tender but denies copious drainage, chills, fever otherwise feeling of unwell. Now approved for [facility] to left lower extremity ulcer. She has had 5 applications of Apligraf with some improvement. Did poorly on conservative with management in the past. Progress of Wound: Left anterior navas is almost healed very small and superficial less than one 0.1 depth. The left posterior leg is hyper granulated so before putting on new shield #10 I hit it with nitrous sticks and then applied the Adaptic touch over to keep her fingers out of it and from itching. Patient tolerated procedure well and seems to be progressing well. Patient is healing well the posterior left leg is smaller also than it was last week it just needs to develop skin over top. - Physical Exam Vital Signs Temp Pulse Resp BP 97.5 F L 90 18 166/87 H 10/07/19 11:40 10/07/19 11:40 10/07/19 11:40 10/07/19 11:40 General: Oriented x3, Cooperative, Well developed HEENT: Atraumatic, PERRLA Oral: Moist Mucosa Neck: Supple, No JVD Lungs: Clear to auscultation, Normal air movement Cardiovascular: Regular rate, Regular Rhythm Abdomen: Bowel Sounds Present, Soft, Non Tender, No Hepato-splenomegaly Extremities: No clubbing, No edema Skin: Ulcer/ Wound - Anterior navas and posterior calf left lower leg clusters Wound Measurements and Assessment WC - Nurse 1 - General Ulcer Measurement Start: 09/30/19 09:43 Freq: Status: Active Protocol: Activity Type Activity Date Activity User E-Sign Co-Sign Detail Recorded Client Recorded Date Recorded By Document 10/07/19 11:40 RB [id number] 10/07/19 11:43 RB 10/07/19 11:40 Wound Center Nurse 1 [Ulcer Assessment] #12- L NAVAS -Combined with other wound No -Current Size (cm) - Length 0.7 -Current Size (cm) - Width 1.5 -Current Size (cm) - Depth 0.1 -Total Square Cm 1.05 -Tunneling No -Undermining/Tunneling No -Circular Undermining No -Exudate Amt Small -Exudate Type Serosanguineous -Wound Margin Flat & Intact -Granulation Amt Large (67-100%) -Granulation Quality Red -Slough/Fibrin Yes -Necrosis Amt Small (1-33%) -Necrotic Tissue Type Adherent Slough -Structure Exposed N/A -Texture (Cassi-wound Skin Appearance) Assessed, Scarring -Moisture (Cassi-wound Skin Appearance Assessed ) -Color (Cassi-wound Skin Appearance) Assessed -Temperature (Cassi-wound Skin No Abnormality Appearance) (Pt Warm) -Tenderness on Palpation (Cassi-wound No Skin Appearance) -Ulcer Cleansing Wound Cleanser -Foul Odor after Cleansing No -Anesthetic Used 5% Lidocaine Gel #7- LT CALF posterior cluster -Combined with other wound No -Current Size (cm) - Length 3.8 -Current Size (cm) - Width 3.5 -Current Size (cm) - Depth 0.1 -Total Square Cm 13.30 -Tunneling No -Undermining/Tunneling No -Circular Undermining No -Exudate Amt Small -Exudate Type Serosanguineous -Wound Margin Flat & Intact -Granulation Amt Medium (34-66%) -Granulation Quality [place] -Slough/Fibrin Yes -Necrosis Amt Small (1-33%) -Necrotic Tissue Type Adherent Slough -Structure Exposed N/A -Texture (Cassi-wound Skin Appearance) Assessed, Scarring -Moisture (Cassi-wound Skin Appearance Assessed ) -Color (Cassi-wound Skin Appearance) Assessed -Temperature (Cassi-wound Skin No Abnormality Appearance) (Pt Warm) -Tenderness on Palpation (Cassi-wound No Skin Appearance) -Ulcer Cleansing Wound Cleanser -Foul Odor after Cleansing No -Anesthetic Used 5% Lidocaine Gel [Edema Assessment] -Lower Limb Edema Present Yes -Left Calf (cm) 40.5 -Left Ankle (cm) 24 WC - Nurse 2 - General Ulcer CM Notes Start: 09/30/19 09:43 Freq: Status: Active Protocol: Activity Type Activity Date Activity User E-Sign Co-Sign Detail Recorded Client Recorded Date Recorded By Document 10/07/19 11:50 MW [id number] 10/07/19 11:59 MW 10/07/19 11:50 Wound Center Nurse 2 [Procedure/Treatment] #12- L NAVAS -Time 11:51 -Correct Patient Yes -Correct Side, Site, Position Yes -Correct Procedure Yes -Procedure Performed Yes -Type of Procedure Debridement -Clinical Debridement Subcutaneous -Post Debridement Size (cm) - Length 1.0 -Post Debridement Size (cm) - Width 0.5 -Post Debridement Size (cm) - Depth 0.1 -Total Square Cm 0.50 -Wound/Ulcer Outcome Not Healed -Ulcer Cleansing Rinsed/ Irrigated with Saline -Foul Odor after Cleansing No -Bioengineered Tissue No -Bleeding Controlled with Pressure -Offloading No -Treatment Response Procedure Tolerated Well #7- LT CALF posterior cluster -Time 11:51 -Correct Patient Yes -Correct Side, Site, Position Yes -Correct Procedure Yes -Procedure Performed Yes -Type of Procedure Debridement -Clinical Debridement Subcutaneous -Post Debridement Size (cm) - Length 3.8 -Post Debridement Size (cm) - Width 3.4 -Post Debridement Size (cm) - Depth 0.1 -Total Square Cm 12.92 -Wound/Ulcer Outcome Not Healed -Ulcer Cleansing Rinsed/ Irrigated with Saline -Foul Odor after Cleansing No -Bioengineered Tissue Yes -Type of bioengineered Tissue NU-SHIELD -Expiration Date 07/20/24 -Product Lot Number [id number] -Percent Used 100 -Bleeding Controlled with Pressure -Other C. HYDROGEL LOT # [id number] -Offloading No -Treatment Response Procedure Tolerated Well [See Physician Procedure note for Specifics] Pain Scale: 0-10 Numeric [Pain] -Is Patient Pain Free? Yes Musculoskeletal: No Tenderness to Palpation of Joints or Extremities Lymphatic: No Cervical, Supraclavicular, or Inguinal Adenopathy Neurological: Cranial nerves II-XII grossly intact, Neuro grossly intact Psych/Mental Status: Normal Affect, Appropriate Debridement Note Post-Debridement Measurements/Treatment WC - Nurse 2 - General Ulcer CM Notes Start: 09/30/19 09:43 Freq: Status: Active Protocol: Activity Type Activity Date Activity User E-Sign Co-Sign Detail Recorded Client Recorded Date Recorded By Document 09/30/19 10:08 MW [id number] 09/30/19 10:22 MW Document 10/07/19 11:50 MW [id number] 10/07/19 11:59 MW 09/30/19 10/07/19 10:08 11:50 Wound Center Nurse 2 #12- L NAVAS -Time 10:09 11:51 -Correct Patient Yes Yes -Correct Side, Site, Position Yes Yes -Correct Procedure Yes Yes -Procedure Performed Yes Yes -Type of Procedure Debridement Debridement -Clinical Debridement Subcutaneous Subcutaneous -Post Debridement Size (cm) - Length 0.5 1.0 -Post Debridement Size (cm) - Width 1.3 0.5 -Post Debridement Size (cm) - Depth 0.1 0.1 -Total Square Cm 0.65 0.50 -Wound/Ulcer Outcome Not Healed Not Healed -Ulcer Cleansing Rinsed/ Rinsed/ Irrigated with Irrigated with Saline Saline -Foul Odor after Cleansing No No -Bioengineered Tissue No No -Bleeding Controlled with Pressure Pressure -Offloading No No -Treatment Response Procedure Procedure Tolerated Well Tolerated Well #7- LT CALF posterior cluster -Time 10:09 11:51 -Correct Patient Yes Yes -Correct Side, Site, Position Yes Yes -Correct Procedure Yes Yes -Procedure Performed Yes Yes -Type of Procedure Debridement Debridement -Clinical Debridement Subcutaneous Subcutaneous -Post Debridement Size (cm) - Length 3.8 3.8 -Post Debridement Size (cm) - Width 3.8 3.4 -Post Debridement Size (cm) - Depth 0.1 0.1 -Total Square Cm 14.44 12.92 -Wound/Ulcer Outcome Not Healed Not Healed -Ulcer Cleansing Rinsed/ Rinsed/ Irrigated with Irrigated with Saline Saline -Foul Odor after Cleansing No No -Bioengineered Tissue Yes Yes -Type of bioengineered Tissue NU-SHIELD NU-SHIELD -Expiration Date 06/22/24 07/20/24 -Product Lot Number [id number] -Percent Used 100 100 -Bleeding Controlled with Pressure Pressure -Other HYDROGEL LOT# C. HYDROGEL LOT [id number] # [id number] -Offloading No No -Treatment Response Procedure Procedure Tolerated Well Tolerated Well Pain Scale: 0-10 Numeric Is Patient Pain Free? Yes Yes Wound debrided: Anterior left lower navas Type of Debridement: Excisional debridement Anesthesia Used: 5% Lidocaine Gel Depth: Down to and including healthy tissue, to muscle Instrument Used: 7mm curette Severity: Limited To Skin Breakdown Amount of bleeding with debridement: Mild Bleeding Controlled with: Pressure Patient tolerated procedure well - Additional Wound Wound debrided: Left posterior lower calf Type of Debridement: Excisional debridement Anesthesia Used: 5% Lidocaine Gel Depth: Down to and including healthy tissue, in the subcutaneous layer Percentage of wound debrided: 100 Instrument Used: 7mm curette Tissue Removed: Fibrin Severity: Limited To Skin Breakdown Amount of bleeding with debridement: Mild Bleeding Controlled with: Compression and gauze Patient tolerated procedure: Patient tolerated procedure well Assessment/Plan Active Problems (Last Reviewed 02/28/19 @ 15:45 by Little Waterman) Venous insufficiency of both lower extremities (Chronic) Atherosclerotic heart disease of [place] coronary artery without angina pectoris (Chronic) Cellulitis (Acute) Chronic renal failure, stage 4 (severe) (Chronic) PVD (peripheral vascular disease) (Chronic) DM2 (diabetes mellitus, type 2) (Chronic) Assessment: Nonhealing recurrent left lower extremity ulceration secondary to lymphedema. Left anterior lower extremity ulcer. Traumatic right lower extremity wound with fat layer exposed. Right medial leg ulcer with fat layer exposed. Diabetes mellitus. Plan: Debridement done as documented above. Procedure was well-tolerated. 10th application of [place] to left lower extremity (posterior) done today using 100% of product. Moistened with saline and covered with Adaptic touch. Advised to leave in place for 1 week. Continue Fibrocol to left navas cluster ulcers. Continue double layer Tubigrip for edema management. Compliance strongly encouraged. Good at wearing her Tubigrip's read arterial studies reviewed, MANNY with noncompressible vessels and venous studies confirmatory again of venous insufficiency. Increased protein intake, elevate lower extremities, exercise and avoid idle standing. Her questions were answered and she was advised to call with any further questions or concerns. Follow-up in 1 week. This note was generated with [employer] dictation software. It may contain incorrect words, spelling, and punctuation that were not noted in checking the note before signing.
[2019-10-12 11:39] VITALS: RESP 16; TEMP 36.4; BMI 39.1
--- NOTE | 2019-10-12 12:46 | PCM.WC.PN ---
(1) Cellulitis Status: Acute Current Visit: Yes Code(s): L03.90 - Cellulitis, unspecified (2) Atherosclerotic heart disease of [place] coronary artery without angina pectoris Status: Chronic Current Visit: Yes Qualifiers: Code(s): I25.10 - Atherosclerotic heart disease of [place] coronary artery without angina pectoris (3) Chronic renal failure, stage 4 (severe) Status: Chronic Current Visit: Yes Code(s): N18.4 - Chronic kidney disease, stage 4 (severe) (4) DM2 (diabetes mellitus, type 2) Status: Chronic Current Visit: Yes Code(s): E11.9 - Type 2 diabetes mellitus without complications (5) PVD (peripheral vascular disease) Status: Chronic Current Visit: Yes Code(s): I73.9 - Peripheral vascular disease, unspecified (6) Venous insufficiency of both lower extremities Status: Chronic Current Visit: Yes Code(s): I87.2 - Venous insufficiency (chronic) (peripheral) Type of Wound Date of Service: 10/12/19 Chief Complaint: Non healing Ulcers History of Wound: Ms Stapleton is a 73-year-old with past medical history as stated above well-known to the wound center and is being managed for chronic venous left lower extremity ulcer. She however now presents with a right lower extremity wound after she was hit by a car door. Was seen as a nurse visit 2 days ago, case was discussed with me and she was advised to apply Fibracol to the wound. Some improvement noted her case coordinator/nurse and patient. mud mill tender but denies copious drainage, chills, fever otherwise feeling of unwell. Now approved for [facility] to left lower extremity ulcer. She has had 5 applications of Apligraf with some improvement. Did poorly on conservative with management in the past. Progress of Wound: Left anterior navas is healed . The left posterior leg is hyper granulated so I hit it with nitrous sticks and then start Aquacel extra daily dressings. We did apply for epi fix and will see if she can start with those next. Patient tolerated procedure well and seems to be progressing well, the wound is smaller H is needs top layer of skin. - Physical Exam Vital Signs Temp Pulse Resp BP 97.5 F L 90 16 166/87 H 10/12/19 11:39 10/07/19 11:40 10/12/19 11:39 10/07/19 11:40 General: Oriented x3, Cooperative, Well developed HEENT: Atraumatic, PERRLA Oral: Moist Mucosa Neck: Supple, No JVD Lungs: Clear to auscultation, Normal air movement Cardiovascular: Regular rate, Regular Rhythm Abdomen: Bowel Sounds Present, Soft, Non Tender, No Hepato-splenomegaly Extremities: No clubbing, No edema Skin: Ulcer/ Wound - Ulcer posterior left lower extremity Wound Measurements and Assessment WC - Nurse 1 - General Ulcer Measurement Start: 09/30/19 09:43 Freq: Status: Active Protocol: Activity Type Activity Date Activity User E-Sign Co-Sign Detail Recorded Client Recorded Date Recorded By Document 10/12/19 11:39 [facility] [id number] 10/12/19 11:50 [facility] 10/12/19 11:39 Wound Center Nurse 1 [Ulcer Assessment] #12- L NAVAS -Combined with other wound No -Current Size (cm) - Length 0.1 -Current Size (cm) - Width 0.1 -Current Size (cm) - Depth 0.1 -Total Square Cm 0.01 -Epithelialization Large 67-100% -Texture (Cassi-wound Skin Appearance) Assessed, Scarring -Moisture (Cassi-wound Skin Appearance Assessed,Dry/ ) Scaly -Color (Cassi-wound Skin Appearance) Assessed, Hemosiderin Staining -Temperature (Cassi-wound Skin No Abnormality Appearance) (Pt Warm) -Tenderness on Palpation (Cassi-wound No Skin Appearance) -Ulcer Cleansing soapy water -Foul Odor after Cleansing No -Anesthetic Used 5% Lidocaine Gel #7- LT CALF posterior cluster -Combined with other wound No -Current Size (cm) - Length 3.4 -Current Size (cm) - Width 3.5 -Current Size (cm) - Depth 0.1 -Total Square Cm 11.90 -Photo Taken No -Epithelialization Small 1-33% -Tunneling No -Undermining/Tunneling No -Circular Undermining No -Exudate Amt Medium -Exudate Type Serosanguineous -Wound Margin Distinct, Outline Attached -Granulation Amt Medium (34-66%) -Granulation Quality Pale,Red -Slough/Fibrin Yes -Necrosis Amt Small (1-33%) -Necrotic Tissue Type Adherent Slough -Texture (Cassi-wound Skin Appearance) Assessed, Scarring -Moisture (Cassi-wound Skin Appearance Assessed,Dry/ ) Scaly -Color (Cassi-wound Skin Appearance) Assessed, Hemosiderin Staining -Temperature (Cassi-wound Skin No Abnormality Appearance) (Pt Warm) -Tenderness on Palpation (Cassi-wound No Skin Appearance) -Ulcer Cleansing soapy water -Foul Odor after Cleansing No -Anesthetic Used 5% Lidocaine Gel [Edema Assessment] -Lower Limb Edema Present Yes -Left Calf (cm) 41.6 -Left Ankle (cm) 22.1 WC - Nurse 2 - General Ulcer CM Notes Start: 09/30/19 09:43 Freq: Status: Active Protocol: Activity Type Activity Date Activity User E-Sign Co-Sign Detail Recorded Client Recorded Date Recorded By Document 10/12/19 12:09 MW [id number] 10/12/19 12:32 MW 10/12/19 12:09 Wound Center Nurse 2 [Procedure/Treatment] #12- L NVAAS -Time 12:09 -Correct Patient Yes -Correct Side, Site, Position Yes -Correct Procedure Yes -Procedure Performed No -Post Debridement Size (cm) - Length 0 -Post Debridement Size (cm) - Width 0 -Post Debridement Size (cm) - Depth 0 -Total Square Cm 0 -Wound/Ulcer Outcome Healed- Epithelialized #7- LT CALF posterior cluster -Time 12:09 -Correct Patient Yes -Correct Side, Site, Position Yes -Correct Procedure Yes -Procedure Performed Yes -Type of Procedure Debridement -Clinical Debridement Subcutaneous -Post Debridement Size (cm) - Length 3.0 -Post Debridement Size (cm) - Width 3.0 -Post Debridement Size (cm) - Depth 0.1 -Total Square Cm 9.00 -Wound/Ulcer Outcome Not Healed -Ulcer Cleansing Rinsed/ Irrigated with Saline -Foul Odor after Cleansing No -Bioengineered Tissue No -Bleeding Controlled with Pressure,Silver Nitrate -Offloading No -Treatment Response Procedure Tolerated Well [See Physician Procedure note for Specifics] Pain Scale: 0-10 Numeric [Pain] -Is Patient Pain Free? Yes Musculoskeletal: No Tenderness to Palpation of Joints or Extremities Lymphatic: No Cervical, Supraclavicular, or Inguinal Adenopathy Neurological: Cranial nerves II-XII grossly intact, Neuro grossly intact Psych/Mental Status: Normal Affect, Appropriate Debridement Note Post-Debridement Measurements/Treatment WC - Nurse 2 - General Ulcer CM Notes Start: 09/30/19 09:43 Freq: Status: Active Protocol: Activity Type Activity Date Activity User E-Sign Co-Sign Detail Recorded Client Recorded Date Recorded By Document 09/30/19 10:08 MW [id number] 09/30/19 10:22 MW Document 10/07/19 11:50 MW [id number] 10/07/19 11:59 MW Document 10/12/19 12:09 MW [id number] 10/12/19 12:32 MW 09/30/19 10/07/19 10/12/19 10:08 11:50 12:09 Wound Center Nurse 2 #12- L NAVAS -Time 10:09 11:51 12:09 -Correct Patient Yes Yes Yes -Correct Side, Site, Position Yes Yes Yes -Correct Procedure Yes Yes Yes -Procedure Performed Yes Yes No -Type of Procedure Debridement Debridement -Clinical Debridement Subcutaneous Subcutaneous -Post Debridement Size (cm) - Length 0.5 1.0 0 -Post Debridement Size (cm) - Width 1.3 0.5 0 -Post Debridement Size (cm) - Depth 0.1 0.1 0 -Total Square Cm 0.65 0.50 0 -Wound/Ulcer Outcome Not Healed Not Healed Healed- Epithelialized -Ulcer Cleansing Rinsed/ Rinsed/ Irrigated with Irrigated with Saline Saline -Foul Odor after Cleansing No No -Bioengineered Tissue No No -Bleeding Controlled with Pressure Pressure -Offloading No No -Treatment Response Procedure Procedure Tolerated Well Tolerated Well #7- LT CALF posterior cluster -Time 10:09 11:51 12:09 -Correct Patient Yes Yes Yes -Correct Side, Site, Position Yes Yes Yes -Correct Procedure Yes Yes Yes -Procedure Performed Yes Yes Yes -Type of Procedure Debridement Debridement Debridement -Clinical Debridement Subcutaneous Subcutaneous Subcutaneous -Post Debridement Size (cm) - Length 3.8 3.8 3.0 -Post Debridement Size (cm) - Width 3.8 3.4 3.0 -Post Debridement Size (cm) - Depth 0.1 0.1 0.1 -Total Square Cm 14.44 12.92 9.00 -Wound/Ulcer Outcome Not Healed Not Healed Not Healed -Ulcer Cleansing Rinsed/ Rinsed/ Rinsed/ Irrigated with Irrigated with Irrigated with Saline Saline Saline -Foul Odor after Cleansing No No No -Bioengineered Tissue Yes Yes No -Type of bioengineered Tissue NU-SHIELD NU-SHIELD -Expiration Date 06/22/24 07/20/24 -Product Lot Number [id number] -Percent Used 100 100 -Bleeding Controlled with Pressure Pressure Pressure,Silver Nitrate -Other HYDROGEL LOT# C. HYDROGEL LOT [id number] # [id number] -Offloading No No No -Treatment Response Procedure Procedure Procedure Tolerated Well Tolerated Well Tolerated Well Pain Scale: 0-10 Numeric Is Patient Pain Free? Yes Yes Yes Wound debrided: Left posterior lower extremity Type of Debridement: Excisional debridement Anesthesia Used: 5% Lidocaine Gel Depth: Down to and including healthy tissue, in the subcutaneous layer Percentage of wound debrided: 100 Instrument Used: 7mm curette Tissue Removed: Fibrin Severity: Limited To Skin Breakdown Amount of bleeding with debridement: Mild Bleeding Controlled with: Compression and gauze, Silver Nitrate Patient tolerated procedure well Assessment/Plan Active Problems (Last Reviewed 02/28/19 @ 15:45 by Little Waterman) Venous insufficiency of both lower extremities (Chronic) Atherosclerotic heart disease of [place] coronary artery without angina pectoris (Chronic) Cellulitis (Acute) Chronic renal failure, stage 4 (severe) (Chronic) PVD (peripheral vascular disease) (Chronic) DM2 (diabetes mellitus, type 2) (Chronic) Assessment: Nonhealing recurrent left lower extremity ulceration secondary to lymphedema. Left anterior lower extremity ulcer. Traumatic right lower extremity wound with fat layer exposed. Right medial leg ulcer with fat layer exposed. Diabetes mellitus. Plan: Debridement done as documented above. Procedure was well-tolerated. Aquacel extra to left navas cluster ulcers. Continue double layer Tubigrip for edema management. Compliance strongly encouraged. Good at wearing her Tubigrip's read arterial studies reviewed, MAN[place] with noncompressible vessels and venous studies confirmatory again of venous insufficiency. Increased protein intake, elevate lower extremities, exercise and avoid idle standing. Her questions were answered and she was advised to call with any further questions or concerns. Follow-up in 2 week. This note was generated with [employer] dictation software. It may contain incorrect words, spelling, and punctuation that were not noted in checking the note before signing.
== END 2019-10-29 23:59 ==
LOC: WC 11:30
PROVIDERS: Family Provider Nurse Practitioner; PCP Nurse Practitioner; Referring Provider Internal Medicine; Visit Provider Nurse Practitioner
DX: E11.622 Type 2 diabetes mellitus with other skin ulcer (principal); L97.222 Non-pressure chronic ulcer of left calf with fat layer exposed; E11.22 Type 2 diabetes mellitus with diabetic chronic kidney disease; N18.4 Chronic kidney disease, stage 4 (severe); I25.10 Atherosclerotic heart disease of native coronary artery without angina pectoris; E11.51 Type 2 diabetes mellitus with diabetic peripheral angiopathy without gangrene; I87.2 Venous insufficiency (chronic) (peripheral); L97.821 Non-pressure chronic ulcer of other part of left lower leg limited to breakdown of skin
CPT/HCPCS: 11042; 15271; Q4160

== ENCOUNTER → 2019-10-28 14:47 | Outpatient (CLI) | payer MEDICARE, SELFPAY ==
[2016-12-05 15:47] VITALS: BMI 35.6
[2019-10-12 11:39] VITALS: BMI 39.1
[2019-10-28 17:23] LABS: Absolute Lymphocyte Count 1.83 X10^3/uL (0.83-4.51); Absolute Neutrophil Count 9.9 X10^3/uL (2.0-7.7); Basophil# 0.03 X10^3/uL; Basophil% 0.2 % (0-1); Eosinophil# 0.17 X10^3/uL; Eosinophils% 1.3 % (0-5); Hematocrit 30.7 % (37-47); Hemoglobin 9.2 g/dL (12.0-15.0); Lymphocyte # 1.83 X10^3/ul (4.0); Lymphocyte % 14.5 % (19-41); Mean Corpuscular Hgb 27.4 pg (27.0-32.0); Mean Corpuscular Volume 91.4 fL (81-99); Mean Platelet Vol. 9.9 fl (6.2-12.0); Monocyte# 0.58 X10^3/uL; Monocyte% 4.6 % (0-10); NRBC Flagged by Analyzer 0 % (0-5); Neutrophil # 9.93 X10^3/uL (2.7-7.7); Neutrophil % 78.9 % (47-70); Platelet Count 241 K/mm3 (150-450); RBC Distribution Width CV 16.9 % (11.6-14.6); RBC Distribution Width SD 55.8 fl (35.1-43.9); Red Blood Count 3.36 M/mm3 (4.2-5.4); White Blood Count 12.6 K/mm3 (4.4-11.0)
[2019-10-28 17:30] LABS: ALB/GLOB Ratio 0.7 RATIO (0.9-2.4); AST(SGOT) 22 U/L (15-37); Alanine Aminotransfer ALT/SGPT 15 U/L (13-56); Albumin, Serum 3.1 g/dL (3.2-5.0); Alkaline Phosphatase 157 U/L (45-117); Anion Gap 9 (5-15); BUN 31 mg/dL (7-18); BUN/Creat Ratio 12.6 RATIO (10-20); Calcium,Total 9.1 mg/dL (8.5-10.1); Chloride 104 mmol/L (98-107); Creatinine, Serum 2.47 mg/dL (0.55-1.02); EST Glomerular Filtration Rate 20 mL/min (>60); Est Glom Filt Rate - Afr Amer 25 mL/min (>60); Globulin 4.3 g/dL (2.2-4.2); Glucose 144 mg/dL (74-106); Potassium 4.4 mmol/L (3.5-5.1); Protein, Total 7.4 g/dL (6.4-8.2); Sodium Level 138 mmol/L (136-145); Uric Acid 4.7 mg/dL (2.6-6.0)
== END ==
PROVIDERS: Family Provider Nurse Practitioner; PCP Nurse Practitioner; Referring Provider Internal Medicine Rheumatology; Visit Provider Internal Medicine Rheumatology
DX: M06.00 Rheumatoid arthritis without rheumatoid factor, unspecified site (principal); M10.00 Idiopathic gout, unspecified site; M17.0 Bilateral primary osteoarthritis of knee; M21.40 Flat foot [pes planus] (acquired), unspecified foot; I26.99 Other pulmonary embolism without acute cor pulmonale; I10 Essential (primary) hypertension; E78.5 Hyperlipidemia, unspecified; Z86.718 Personal history of other venous thrombosis and embolism
CPT/HCPCS: 36415; 80053; 84550; 85025

== ENCOUNTER 2019-11-25 11:00 | Outpatient (RCR) | payer MEDICARE, SELFPAY ==
[2016-12-05 15:47] VITALS: BMI 35.6
[2019-10-12 11:39] VITALS: BMI 39.1
[2019-10-30 00:34] VITALS: BP 166/87; PULSE 90; RESP 16; TEMP 36.4
[2019-11-09 11:28] VITALS: BP 165/80; PULSE 112; RESP 18; TEMP 37; BMI 39.1
--- NOTE | 2019-11-09 11:47 | PN.PCM_ITS ---
(1) Ulcer of right lower extremity with fat layer exposed Status: Acute Current Visit: Yes Code(s): L97.912 - Non-pressure chronic ulcer of unspecified part of right lower leg with fat layer exposed (2) DM2 (diabetes mellitus, type 2) Status: Chronic Current Visit: Yes Code(s): E11.9 - Type 2 diabetes mellitus without complications (3) PVD (peripheral vascular disease) Status: Chronic Current Visit: Yes Code(s): I73.9 - Peripheral vascular disease, unspecified (4) Type 2 diabetes mellitus with other circulatory complications Status: Chronic Current Visit: Yes Code(s): E11.59 - Type 2 diabetes mellitu s with other circulatory complications (5) Venous insufficiency of both lower extremities Status: Chronic Current Visit: Yes Code(s): I87.2 - Venous insufficiency (chronic) (peripheral) (6) Wound of right lower extremity Status: Chronic Current Visit: Yes Code(s): S81.801A - Unspecified open wound, right lower leg, initial encounter Comment: Traumatic, penetrating with fat layer exposed. Type of Wound Date of Service: 11/09/19 Chief Complaint: Non healing Ulcers History of Wound: Ms Stapleton is a 73-year-old with past medical history as stated above well-known to the wound center and is being managed for chronic venous left lower extremity ulcer. She however now presents with a right lower extremity wound after she was hit by a car door. Was seen as a nurse visit 2 days ago, case was discussed with me and she was advised to apply Fibracol to the wound. 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 Now approved for [facility] to left lower extremity ulcer. She has had 5 marcus lications of Apligraf with some improvement. Did poorly on conservative with management in the past. Progress of Wound: Today the left posterior lower extremity open wound is still hyper granulated but islands of new tissue have developed patient has not been here for almost 3 weeks. For epi fix so we did epi mesh 4 x 4 on the posterior leg will follow-up in 1 week no signs of infection progressing well. - Physical Exam Vital Signs Temp Pulse Resp BP 98.6 F 112 H 18 165/80 H 11/09/19 11:28 11/09/19 11:28 11/09/19 11:28 11/09/19 11:28 General: Oriented x3, Cooperative, Well developed HEENT: Atraumatic, PERRLA Oral: Moist Mucosa Neck: Supple, No JVD Lungs: Clear to auscultation, Normal air movement Cardiovascular: Regular rate, Regular Rhythm Abdomen: Bowel Sounds Present, Soft, Non Tender, No Hepato-splenomegaly Extremities: No clubbing, No edema Skin: Ulcer/ Wound - Posterior calf Wound Measurements and Assessment WC - Nurse 1 - General Ulcer Measurement Start: 11/09/19 11:28 Freq: Status: Active Protocol: Activity Type Activity Date Activity User E-Sign Co-Sign Detail Recorded Client Recorded Date Recorded By Document 11/09/19 11:28 [id number] 11/09/19 11:30 RB 11/09/19 11:28 Wound Center Nurse 1 [Ulcer Assessment] #7- LT CALF posterior cluster -Combined with other wound No -Current Size (cm) - Length 3 -Current Size (cm) - Width 3.5 -Current Size (cm) - Depth 0.1 -Total Square Cm 10.5 -Tunneling No -Undermining/Tunneling No -Circular Undermining No -Exudate Amt Medium -Exudate Type Serosanguineous -Wound Margin Flat & Intact -Granulation Amt Medium (34-66%) -Granulation Quality [place] -Slough/Fibrin Yes -Necrosis Amt Small (1-33%) -Necrotic Tissue Type Adherent Slough -Structure Exposed N/A -Texture (Cassi-wound Skin Appearance) Assessed, Scarring -Moisture (Cassi-wound Skin Appearance Assessed ) -Color (Cassi-wound Skin Appearance) Erythema -Temperature (Cassi-wound Skin No Abnormality Appearance) (Pt Warm) -Tenderness on Palpation (Cassi-wound No Skin Appearance) -Ulcer Cleansing Wound Cleanser -Foul Odor after Cleansing No -Anesthetic Used 4% Lidocaine Solution [Edema Assessment] -Lower Limb Edema Present Yes -Left Calf (cm) 40 -Left Ankle (cm) 22.5 Musculoskeletal: No Tenderness to Palpation of Joints or Extremities Lymphatic: No Cervical, Supraclavicular, or Inguinal Adenopathy Neurological: Cranial nerves II-XII grossly intact, Neuro grossly intact Psych/Mental Status: Normal Affect, Appropriate Debridement Note Wound debrided: Posterior calf Laterality: Left Type of Debridement: Excisional debridement Depth: Down to and including healthy tissue, in the subcutaneous layer Instrument Used: 7mm curette Tissue Removed: Fibrin Severity: Limited To Skin Breakdown Amount of bleeding with debridement: Mild Bleeding Controlled with: Pressure Assessment/Plan Active Problems (Last Reviewed 02/28/19 @ 15:45 by Little Waterman) Venous insufficiency of both lower extremities (Chronic) Wound of right lower extremity (Chronic) Traumatic, penetrating with fat layer exposed. Ulcer of right lower extremity with fat layer exposed (Acute) PVD (peripheral vascular disease) (Chronic) DM2 (diabetes mellitus, type 2) (Chronic) 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) Assessment: Nonhealing recurrent left lower extremity ulceration secondary to lymphedema. Left anterior lower extremity ulcer. Traumatic right lower extremity wound with fat layer exposed. Right medial leg ulcer with fat layer exposed. Diabetes mellitus. Plan: Epi?mesh 4 x 4 applied today. Do not change the dressing follow-up in 1 week
[2019-11-16 11:27] VITALS: BP 175/86; PULSE 117; RESP 18; TEMP 38.1; BMI 39.1
--- NOTE | 2019-11-16 11:30 | PCM.WC.PN ---
(1) Ulcer of right lower extremity with fat layer exposed Status: Acute Current Visit: Yes Code(s): L97.912 - Non-pressure chronic ulcer of unspecified part of right lower leg with fat layer exposed (2) DM2 (diabetes mellitus, type 2) Status: Chronic Current Visit: Yes Code(s): E11.9 - Type 2 diabetes mellitus without complications (3) PVD (peripheral vascular disease) Status: Chronic Current Visit: Yes Code(s): I73.9 - Peripheral vascular disease, unspecified (4) Type 2 diabetes mellitus with other circulatory complications Status: Chronic Current Visit: Yes Code(s): E11.59 - Type 2 diabetes mellitus with other circulatory complications (5) Venous insufficiency of both lower extremities Status: Chronic Current Visit: Yes Code(s): I87.2 - Venous insufficiency (chronic) (peripheral) (6) Wound of right lower extremity Status: Chronic Current Visit: Yes Code(s): S81.801A - Unspecified open wound, right lower leg, initial encounter Comment: Traumatic, penetrating with fat layer exposed. Type of Wound Date of Service: 11/16/19 Chief Complaint: Non healing Ulcers History of Wound: Ms Stapleton is a 73-year-old with past medical history as stated above well-known to the wound center and is being managed for chronic venous left lower extremity ulcer. She however now presents with a right lower extremity wound after she was hit by a car door. Was seen as a nurse visit 2 days ago, case was discussed with me and she was advised to apply Fibracol to the wound. 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 Now approved for [facility] to left lower extremity ulcer. She has had 5 applications of Apligraf with some improvement. Did poorly on conservative with management in the past. Progress of Wound: Today the left posterior lower extremity open wound is still hyper granulated but islands of new tissue have developed .Tolerated well epi fix #1 #2 is applied today. - Physical Exam Vital Signs Temp Pulse Resp BP 100.6 F H 117 H 18 175/86 H 11/16/19 11:27 11/16/19 11:27 11/16/19 11:27 11/16/19 11:27 General: Oriented x3, Cooperative, Well developed HEENT: Atraumatic, PERRLA Oral: Moist Mucosa Neck: Supple, No JVD Lungs: Clear to auscultation, Normal air movement Cardiovascular: Regular rate, Regular Rhythm Abdomen: Bowel Sounds Present, Soft, Non Tender, No Hepato-splenomegaly Extremities: No clubbing, No edema Skin: Ulcer/ Wound - Left posterior calf Wound Measurements and Assessment WC - Nurse 1 - General Ulcer Measurement Start: 11/09/19 11:28 Freq: Status: Active Protocol: Activity Type Activity Date Activity User E-Sign Co-Sign Detail Recorded Client Recorded Date Recorded By Document 11/16/19 11:27 RB [id number] 11/16/19 11:29 RB 11/16/19 11:27 Wound Center Nurse 1 [Ulcer Assessment] #7- LT CALF posterior cluster -Combined with other wound No -Current Size (cm) - Length 3 -Current Size (cm) - Width 2.8 -Current Size (cm) - Depth 0.1 -Total Square Cm 8.4 -Tunneling No -Undermining/Tunneling No -Circular Undermining No -Exudate Amt Medium -Exudate Type Serosanguineous -Wound Margin Flat & Intact -Granulation Amt Medium (34-66%) -Granulation Quality [place] -Slough/Fibrin Yes -Necrosis Amt Small (1-33%) -Necrotic Tissue Type Adherent Slough -Structure Exposed N/A -Texture (Cassi-wound Skin Appearance) Assessed, Scarring -Moisture (Cassi-wound Skin Appearance Assessed ) -Color (Cassi-wound Skin Appearance) Assessed -Temperature (Cassi-wound Skin No Abnormality Appearance) (Pt Warm) -Tenderness on Palpation (Cassi-wound No Skin Appearance) -Ulcer Cleansing Wound Cleanser -Foul Odor after Cleansing No -Anesthetic Used 4% Lidocaine Solution 11/16/19 11:29 Wound Center by Nazia Ledezma pt states she is having chills and aches today. temp 100.6 . Initialized on 11/16/19 11:29 - END OF NOTE WC - Nurse 2 - General Ulcer CM Notes Start: 11/09/19 11:28 Freq: Status: Active Protocol: Activity Type Activity Date Activity User E-Sign Co-Sign Detail Recorded Client Recorded Date Recorded By Document 11/16/19 11:15 MW [id number] 11/16/19 11:19 MW 12/18/19 11:15 Wound Center Nurse 2 [Procedure/Treatment] -Time 11:15 -Correct Patient Yes -Correct Side, Site, Position Yes -Correct Procedure Yes -Procedure Performed Yes -Type of Procedure Debridement -Clinical Debridement Subcutaneous -Post Debridement Size (cm) - Length 2.8 -Post Debridement Size (cm) - Width 3.5 -Post Debridement Size (cm) - Depth 0.1 -Total Square Cm 9.80 -Wound/Ulcer Outcome Not Healed -Ulcer Cleansing Rinsed/ Irrigated with Saline -Foul Odor after Cleansing No -Bioengineered Tissue Yes -Type of bioengineered Tissue EPIFIX -Expiration Date 07/31/24 -Product Lot Number [id number] -Percent Used 100 -Saline Lot Number [id number] -Bleeding Controlled with Pressure -Offloading No -Treatment Response Procedure Tolerated Well [See Physician Procedure note for Specifics] Pain Scale: 0-10 Numeric [Pain] -Is Patient Pain Free? Yes Musculoskeletal: No Tenderness to Palpation of Joints or Extremities Lymphatic: No Cervical, Supraclavicular, or Inguinal Adenopathy Neurological: Cranial nerves II-XII grossly intact, Neuro grossly intact Psych/Mental Status: Normal Affect, Appropriate Debridement Note Post-Debridement Measurements/Treatment WC - Nurse 2 - General Ulcer CM Notes Start: 11/09/19 11:28 Freq: Status: Active Protocol: Activity Type Activity Date Activity User E-Sign Co-Sign Detail Recorded Client Recorded Date Recorded By Document 11/09/19 11:49 MW [id number] 11/09/19 11:51 MW Document 11/16/19 11:15 MW [id number] 11/16/19 11:19 MW 11/09/19 11/16/19 11:49 11:15 Wound Center Nurse 2 #7- LT CALF posterior cluster -Time 11:49 11:15 -Correct Patient Yes Yes -Correct Side, Site, Position Yes Yes -Correct Procedure Yes Yes -Procedure Performed No Yes -Type of Procedure Debridement -Clinical Debridement Subcutaneous -Post Debridement Size (cm) - Length 3.0 2.8 -Post Debridement Size (cm) - Width 4.0 3.5 -Post Debridement Size (cm) - Depth 0.1 0.1 -Total Square Cm 12.00 9.80 -Wound/Ulcer Outcome Not Healed Not Healed -Ulcer Cleansing Rinsed/ Rinsed/ Irrigated with Irrigated with Saline Saline -Foul Odor after Cleansing No No -Bioengineered Tissue Yes Yes -Type of bioengineered Tissue EPIFIX EPIFIX -Expiration Date 04/30/24 07/31/24 -Product Lot Number [id number] -Percent Used 100 100 -Saline Lot Number [id number] -Bleeding Controlled with Pressure Pressure -Offloading No No -Treatment Response Procedure Tolerated Well Pain Scale: 0-10 Numeric Is Patient Pain Free? Yes Yes Wound debrided: Left posterior calf Type of Debridement: Excisional debridement Anesthesia Used: 5% Lidocaine Gel Depth: Down to and including healthy tissue, in the subcutaneous layer Percentage of wound debrided: 100 Instrument Used: 7mm curette Tissue Removed: Fibrin Severity: Limited To Skin Breakdown Amount of bleeding with debridement: Mild Bleeding Controlled with: Pressure Patient tolerated procedure well Assessment/Plan Active Problems (Last Reviewed 02/28/19 @ 15:45 by Little Waterman) Venous insufficiency of both lower extremities (Chronic) Wound of right lower extremity (Chronic) Traumatic, penetrating with fat layer exposed. Ulcer of right lower extremity with fat layer exposed (Acute) PVD (peripheral vascular disease) (Chronic) DM2 (diabetes mellitus, type 2) (Chronic) 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) Assessment: Nonhealing recurrent left lower extremity ulceration secondary to lymphedema. Left anterior lower extremity ulcer. Diabetes mellitus. Plan: Epi?mesh #2 4 x 4 applied today. Do not change the dressing follow-up in 1 week. Follow-up on Thursday
[2019-11-25 11:39] VITALS: BP 147/51; PULSE 86; RESP 18; TEMP 36.7; BMI 39.1
--- NOTE | 2019-11-25 18:09 | PN.PCM_ITS ---
(1) Ulcer of left lower extremity with fat layer exposed Status: Chronic Code(s): L97.922 - Non-pressure chronic ulcer of unspecified part of left lower leg with fat layer exposed Comment: mixed venous arterial left posterior calf (2) Chronic steroid use Status: Chronic (3) DM2 (diabetes mellitus, type 2) Status: Chronic Code(s): E11.9 - Type 2 diabetes mellitus without complicatio ns (4) Depression Status: Chronic Code(s): F32.9 - Major depressive disorder, single episode, unspecified (5) Dyslipidemia Status: Chronic Code(s): E78.5 - Hyperlipidemia, unspecified (6) Essential hypertension Status: Chronic Code(s): I10 - Essential (primary) hypertension (7) Morbid obesity with BMI of 45.0-49.9, adult Status: Chronic Code(s): E66.01 - Morbid (severe) obesity due to excess calories; Z68.42 - Body mass index (BMI) 45.0-49.9, adult (8) PVD (peripheral vascular disease) Status: Chronic Code(s): I73.9 - Peripheral vascular disease, unspecified Type of Wound Date of Service: 11/25/19 Chief Complaint: Non healing Ulcers History of Wound: Ms Stapleton is a 73-year-old with past medical history as stated above well-known to the wound center and is being managed for chronic venous left lower extremity ulcer. She however now presents with a right lower extremity wound after she was hit by a car door. Was seen as a nurse visit 2 days ago, case was discussed with me and she was advised to apply Fibracol to the wound. 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 Now approved for [facility] to left lower extremity ulcer. She has had 5 applications of Apligraf with some improvement. Did poorly on conservative with management in the past. Progress of Wound: Courtesy visit for Janiya. Today the left posterior lower extremity open wound is still hyper granulated but islands of new tissue have developed .Tolerated well epi fix prior, no new concerns. - Physical Exam Vital Signs Temp Pulse Resp BP 98.1 F 86 18 147/51 H 11/25/19 11:39 11/25/19 11:39 11/25/19 11:39 11/25/19 11:39 General: Alert, Oriented x3, Cooperative, No apparent distress HEENT: Atraumatic Oral: Moist Mucosa Cardiovascular: Regular rate, Regular Rhythm Abdomen: Soft, Non Tender Skin: Ulcer/ Wound - see nursing documentation, slough and devitalized tissue present, no signs of infection at this time. Neurological: Neuro grossly intact Psych/Mental Status: Normal Affect, Appropriate, Alert and oriented to time, place, person, mood and affect Debridement Note Post-Debridement Measurements/Treatment WC - Nurse 2 - General Ulcer CM Notes Start: 11/09/19 11:28 Freq: Status: Active Protocol: Activity Type Activity Date Activity User E-Sign Co-Sign Detail Recorded Client Recorded Date Recorded By Document 11/09/19 11:49 MW [id number] 11/09/19 11:51 MW Document 11/16/19 11:15 MW [id number] 11/16/19 11:19 MW Document 11/25/19 11:52 MW [id number] 11/25/19 12:00 MW 11/09/19 11/16/19 11/25/19 11:49 11:15 11:52 Wound Center Nurse 2 #7- LT CALF posterior cluster -Time 11:49 11:15 11:53 -Correct Patient Yes Yes Yes -Correct Side, Site, Position Yes Yes Yes -Correct Procedure Yes Yes Yes -Procedure Performed No Yes Yes -Type of Procedure Debridement Debridement -Clinical Debridement Subcutaneous Subcutaneous -Post Debridement Size (cm) - Length 3.0 2.8 2.7 -Post Debridement Size (cm) - Width 4.0 3.5 3.9 -Post Debridement Size (cm) - Depth 0.1 0.1 0.1 -Total Square Cm 12.00 9.80 10.53 -Wound/Ulcer Outcome Not Healed Not Healed Not Healed -Ulcer Cleansing Rinsed/ Rinsed/ Rinsed/ Irrigated with Irrigated with Irrigated with Saline Saline Saline -Foul Odor after Cleansing No No No -Bioengineered Tissue Yes Yes Yes -Type of bioengineered Tissue EPIFIX EPIFIX EPIFIX -Expiration Date 04/30/24 07/31/24 07/31/24 -Product Lot Number [id number] -Percent Used 100 100 100 -Saline Lot Number [id number] -Bleeding Controlled with Pressure Pressure Pressure -Offloading No No No -Treatment Response Procedure Procedure Tolerated Well Tolerated Well Pain Scale: 0-10 Numeric Is Patient Pain Free? Yes Yes Yes Wound debrided: Nonhealing ulcer left lower extremity Laterality: Left Type of Debridement: Excisional debridement Anesthesia Used: 5% Lidocaine Gel Depth: in the subcutaneous layer Percentage of wound debrided: 100 Instrument Used: 5mm curette Tissue Removed: slough and devitalized tissue Severity: Fat Layer Exposed Amount of bleeding with debridement: Mild Bleeding Controlled with: Pressure Patient tolerated procedure well Assessment/Plan Assessment: Nonhealing recurrent left lower extremity ulceration secondary to lymphedema. Left anterior lower extremity ulcer. Diabetes mellitus. Plan: Courtesy visit for Janiya [place]. Epi?fix #3 4 x 4 applied today, covered with adaptic touch and steris and 100 percent used without any waste. Do not change the dressing follow-up in 1 week. Follow-up in one week or sooner if needed. Code Visit 150xxx-152xx: [id number] Skin sub graft trnk/arm/leg
== END 2019-11-29 23:59 ==
LOC: WC 11:00
PROVIDERS: Family Provider Nurse Practitioner; PCP Nurse Practitioner; Referring Provider Internal Medicine; Visit Provider Nurse Practitioner
DX: E11.622 Type 2 diabetes mellitus with other skin ulcer (principal); E11.51 Type 2 diabetes mellitus with diabetic peripheral angiopathy without gangrene; I87.2 Venous insufficiency (chronic) (peripheral); L97.221 Non-pressure chronic ulcer of left calf limited to breakdown of skin; I89.0 Lymphedema, not elsewhere classified; I10 Essential (primary) hypertension; E78.5 Hyperlipidemia, unspecified; E66.01 Morbid (severe) obesity due to excess calories; Z68.42 Body mass index [BMI] 45.0-49.9, adult; Z71.3 Dietary counseling and surveillance
CPT/HCPCS: 15271; Q4186

== ENCOUNTER 2019-12-01 06:54 | Inpatient (IN) | payer MEDICARE, SELFPAY ==
[2016-12-05 15:47] VITALS: BMI 35.6
[2019-12-01] VITALS (12 sets, daily range): BP systolic 149–161; BP diastolic 70–87; PULSE 83–105; RESP 16–19; TEMP 36.7–37.3; O2SAT 93–98; BMI 41.7; BMI 40.0
--- NOTE | 2019-12-01 07:08 | RAD_ITS ---
STUDY: X-RAY CHEST REASON FOR EXAM: Female, 74 years old. HIGH X 2 DAYS -- DENIES FEVER OR COUGH TECHNIQUE: Single AP portable view of the chest. COMPARISON: 04/18/2018. FINDINGS: The lungs are underexpanded. There is interstitial prominence bilaterally with denser infiltration in the perihilar regions, suggesting CHF with pulmonary edema. There is no demonstrated pleural abnormality. Normal size heart. There are prominent lalit bilaterally which are probably on a vascular basis. Overlying hilar masses or lymphadenopathy cannot be excluded.. There is atherosclerotic calcification of the aortic arch with tortuosity. There are degenerative changes of the visualized thoracic spine. There are no visualized acute osseous abnormalities. There is no demonstrated abnormality of the visualized soft tissue structures of the upper abdomen. RAD/Chest 1 View (Portable) IMPRESSION: CHF with pulmonary edema. Bilateral hilar prominence is probably on a vascular basis. Overlying perihilar mass or lymphadenopathy cannot be excluded. Follow-up is advised. Electronically Signed: Omar Fragoso MD at 7:51 EST , Service support ,
--- NOTE | 2019-12-01 07:09 | EKG12_ITS ---
Test Reason : SOB Blood Pressure : / mmHG Vent. Rate : 087 BPM Atrial Rate : 087 BPM P-R Int : 184 ms QRS Dur : 098 ms QT Int : 398 ms P-R-T Axes : -08 016 093 degrees QTc Int : 478 ms Sinus rhythm with Premature atrial complexes Nonspecific T wave abnormality Abnormal ECG Confirmed by CHRIS MORELAND, ROBBY ([id number]), commissioning editor JO ANN KABA ([id number]) on 12/05/2019 12:24:48 PM Referred By: TIGIST Confirmed By:ROBBY PEREZ MD
--- NOTE | 2019-12-01 07:10 | ED.VISSUMM ---
- ER Visit Summary Date of Service: 12/01/19 Chief Complaint: Shortness of breath History of Present Illness: The patient is a 74 F presenting with shortness of breath. Patient states this has been ongoing for the past week and has been progressively worsening. She states she gets extremely short of breath when she tries to ambulate. When she rests this improves. She denies chest pain. She has has had increased lower extremity swelling. She has a history of lymphedema. Also complains of generalized weakness and fatigue. Denies other complaints. She has remote history of PE and has IVC filter. She is not on anticoagulants. Physical Examination: Vitals are stable. Patient is afebrile. Alert no acute distress. HEENT exam is unremarkable. Neck is supple. Lungs are diminished bilaterally. Heart is regular rate and rhythm. Abdomen is soft nontender nondistended. Extremities symmetric edema Skin is warm and dry. No focal neurologic deficit. Remainder of exam is unremarkable. Emergency Department Course and Treatment: EKG is sinus rate of 87 with no acute ischemic changes. CBC shows white count 11.2, hemoglobin 8.2. Chemistries show BUN 23, creatinine 1.78. Troponin is negative. D-dimer 1.89. With ambulation patient was only able to ambulate a few steps and her pulse ox went to 88% on room air and she was very short of breath. Bilateral lower extremity Doppler shows no evidence of DVT. Discussed with the hospitalist for admission. Disposition: Admission Impression: New onset CHF, hypoxia This note was generated with D[employer] dictation software. It may contain incorrect words, spelling, and punctuation that were not noted in review of the chart prior to signing ED Disposition - Plan for ED Patient: Referrals: Sonja Feliciano, SAMANTA-C [Primary Care Provider] -
[2019-12-01 07:27] LABS: Absolute Lymphocyte Count 2.21 X10^3/uL (0.83-4.51); Absolute Neutrophil Count 7.7 X10^3/uL (2.0-7.7); Basophil# 0.07 X10^3/uL; Basophil% 0.6 % (0-1); Eosinophil# 0.51 X10^3/uL; Eosinophils% 4.5 % (0-5); Hematocrit 27.1 % (37-47); Hemoglobin 8.2 g/dL (12.0-15.0); Lymphocyte # 2.21 X10^3/ul (4.0); Lymphocyte % 19.7 % (19-41); Mean Corp Hgb Conc 30.3 g/dL (32-36); Mean Corpuscular Hgb 26.6 pg (27.0-32.0); Mean Platelet Vol. 8.9 fl (6.2-12.0); Monocyte% 6.2 % (0-10); NRBC Flagged by Analyzer 0 % (0-5); Neutrophil # 7.71 X10^3/uL (2.7-7.7); Neutrophil % 68.6 % (47-70); Platelet Count 217 K/mm3 (150-450); RBC Distribution Width CV 16.9 % (11.6-14.6); RBC Distribution Width SD 53.3 fl (35.1-43.9); Red Blood Count 3.08 M/mm3 (4.2-5.4); White Blood Count 11.2 K/mm3 (4.4-11.0)
[2019-12-01 07:39] LABS: D-Dimer Quantitative (DVT/PE) 1.89 FEU/ug/m (0.27-0.49)
--- NOTE | 2019-12-01 07:39 | VDLE_ITS ---
Reason For Study: Swelling RIGHT LEFT GSV is normal. GSV is normal. CFV is compressible, spontaneous, phasic, CFV is compressible, spontaneous, phasic, competent and demonstrates normal competent, and demonstrates normal augmentation. augmentation. FV is compressible, spontaneous, phasic, FV is compressible, spontaneous, phasic, competent and demonstrates normal competent and demonstrates normal augmentation. augmentation. POP V is compressible, spontaneous, phasic, POP V is compressible, spontaneous, phasic, competent and demonstrates normal competent and demonstrates normal augmentation. augmentation. T/P Trunk is compressible. T/P Trunk is compressible. PTV is compressible. PTV is compressible. RT PerV is compressible. LT PerV is compressible. Nonvascualrized structure noted in the Nonvascualrized structure noted in the popliteal space measuring approximently 0.69 popliteal space measuring approximently 1.41 x 2.33 x 4.10 cm. x 3.39 cm. Procedure Exam performed portable in ED. A preliminary report was called and/or faxed to Hillary. Interpretation Summary Deep veins of the lower extremities are bilaterally patent and compressible segmentally. There is no evidence of deep vein thrombosis on either side. Valvular competence appears intact within the proximal deep venous systems bilaterally. The great saphenous veins appear bilaterally patent and compressible segmentally. A non-vascular, hypoechoic structure is noted in the popliteal space bilaterally, with dimensions as documented above. These probably represent popliteal cysts. Clinical correlation is advised. Ordering Physician: Sadia Thornton Referring Physician: Sonja Feliciano Performed By: Smitha Mays RVT
[2019-12-01 07:45] LABS: Anion Gap 7 (5-15); BUN 23 mg/dL (7-18); BUN/Creat Ratio 12.9 RATIO (10-20); Calcium,Total 8.9 mg/dL (8.5-10.1); Chloride 110 mmol/L (98-107); Creatinine, Serum 1.78 mg/dL (0.55-1.02); EST Glomerular Filtration Rate 30 mL/min (>60); Est Glom Filt Rate - Afr Amer 36 mL/min (>60); Estimated Creatinine Clearance 22.26 ml/min; Glucose 128 mg/dL (74-106); Potassium 3.8 mmol/L (3.5-5.1); Sodium Level 141 mmol/L (136-145)
[2019-12-01 07:45] LABS: Mucous, Urine 0 SEEN /hpf (<or=2+)
[2019-12-01 08:11] LABS: Color, Urine Straw (Yellow); Glucose, Dipstick Normal (Normal); Ketone-Dipstick Negative (Negative); Leukocyte Esterase-Dipstick 500 /ul (Negative); Nitrite-Dipstick Negative (Negative); Occult Blood-Urine 150 /ul (Negative); Protein-Dipstick 100 mg/dl (Negative); Specific Gravity, Urine 1.015 (1.002-1.030); Urine Bilirubin Dipstick Negative (Negative); Urine Clarity Cloudy (Clear); Urine Urobilinogen Normal (Normal)
--- NOTE | 2019-12-01 08:43 | NURSING ---
103 NEW ONSET CHF, HYPOXIA GABE
[2019-12-01] MEDS: Furosemide 40 MG/4 ML Vial IV (08:44)
--- NOTE | 2019-12-01 08:47 | PCM.HP.STD ---
Problem List (1) Acute cystitis Status: Acute Qualifiers: Hematuria presence: without hematuria Qualified Code(s): N30.00 - Acute cystitis without hematuria (2) UTI (urinary tract infection) Status: Acute (3) Venous insufficiency of both lower extremities Status: Chronic (4) Wound of right lower extremity Status: Chronic Comment: Traumatic, penetrating with fat layer exposed. (5) Ulcer of right lower extremity with fat layer exposed Status: Chronic (6) Essential hypertension Status: Chronic (7) Debility Status: Chronic (8) Premature atrial contractions Status: Chronic (9) Premature ventricular contraction Status: Chronic (10) Atherosclerotic heart disease of [place] coronary artery without angina pectoris Status: Chronic Qualifiers: (11) Varicose veins of both lower extremities Status: Chronic (12) Chronic renal failure, stage 4 (severe) Status: Chronic (13) Chronic steroid use Status: Chronic (14) Morbid obesity with BMI of 45.0-49.9, adult Status: Chronic (15) Osteopenia Status: Chronic (16) Pulmonary hypertension Status: Chronic (17) Personal history of DVT (deep vein thrombosis) Status: Chronic (18) Presence of IVC filter Status: Chronic (19) Rheumatoid arthritis Status: Suspected Comment: she sees Dr. Wiggins and is on Plaquenil and Prednisone (20) Ulcer of left lower extremity with fat layer exposed Status: Chronic Comment: mixed venous arterial left posterior calf (21) Lymphedema Status: Chronic (22) PVD (peripheral vascular disease) Status: Chronic (23) Paroxysmal atrial fibrillation Status: Chronic (24) S/P angioplasty with stent Status: Chronic Comment: EDGARDO to mid LAD 12/05/2016 (25) DM2 (diabetes mellitus, type 2) Status: Chronic (26) Dyslipidemia Status: Chronic (27) Depression Status: Chronic (28) Gout Status: Chronic (29) Type 2 diabetes mellitus with other circulatory complications Status: Chronic (30) CHF (congestive heart failure) Status: Acute (31) Elevated d-dimer Status: Acute History of Present Illness Date of Admission: 12/01/19 Chief Complaint: Shortness of breath The patient is a 74 year old F with multiple comorbidities admitted with shortness of breath. Patient has symptoms started about 4 days prior to her admission. She has since noticed increasing shortness of breath especially with activity. She also did complain of significant swelling involving both lower extremities. She denied any subjective fever no chills. Denied any cough. She however did complain of some abdominal discomfort. In view of worsening symptoms patient presented to the emergency department. Her assessment was consistent with acute congestive heart failure. Urinalysis also obtained came back positive for cystitis. Patient was also found to have elevated d-dimer venous duplex obtained in the ED was negative plan was for patient to have completed her evaluation with regards to the elevated d-dimer with VQ scan however she could not lay flat. Subsequently admitted to monitored bed for further management Past Medical History Past Medical History (Chronic Problems): Chronic Problems (Last Reviewed 12/01/19 @ 11:16 by Jake Nesbitt MD) Venous insufficiency of both lower extremities (Chronic) Wound of right lower extremity (Chronic) Traumatic, penetrating with fat layer exposed. Ulcer of right lower extremity with fat layer exposed (Chronic) Essential hypertension (Chronic) Debility (Chronic) Premature atrial contractions (Chronic) Premature ventricular contraction (Chronic) Atherosclerotic heart disease of [place] coronary artery without angina pectoris (Chronic) Varicose veins of both lower extremities (Chronic) Chronic renal failure, stage 4 (severe) (Chronic) Chronic steroid use (Chronic) Morbid obesity with BMI of 45.0-49.9, adult (Chronic) Osteopenia (Chronic) Pulmonary hypertension (Chronic) Personal history of DVT (deep vein thrombosis) (Chronic) Presence of IVC filter (Chronic) Ulcer of left lower extremity with fat layer exposed (Chronic) mixed venous arterial left posterior calf Lymphedema (Chronic) PVD (peripheral vascular disease) (Chronic) Paroxysmal atrial fibrillation (Chronic) S/P angioplasty with stent (Chronic ~12/05/16) EDGARDO to mid LAD 12/05/2016 DM2 (diabetes mellitus, type 2) (Chronic) Dyslipidemia (Chronic) Depression (Chronic) Gout (Chronic) 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) Medical History: Medical History (Last Reviewed 12/01/19 @ 12:07 by Jake Nesbitt MD) Premature atrial contractions (Chronic) I49.1 Premature ventricular contraction (Chronic) I49.3 Atherosclerotic heart disease of [place] coronary artery without angina pectoris (Chronic) I25.10 Cellulitis (Resolved) L03.90 Sepsis (Resolved) A41.9 Varicose veins of both lower extremities (Chronic) I83.93 Chronic renal failure, stage 4 (severe) (Chronic) N18.4 Chronic steroid use (Chronic) Morbid obesity with BMI of 45.0-49.9, adult (Chronic) E66.01, Z68.42 Osteopenia (Chronic) M85.80 Pulmonary hypertension (Chronic) I27.20 Personal history of DVT (deep vein thrombosis) (Chronic) Z86.718 Presence of IVC filter (Chronic) Z95.828 Rheumatoid arthritis (Suspected) M06.[address] Wiggins and is on Plaquenil and Prednisone Ulcer of left lower extremity with fat layer exposed (Chronic) L97.922 mixed venous arterial left posterior calf Lymphedema (Chronic) I89.0 PVD (peripheral vascular disease) (Chronic) I73.9 Paroxysmal atrial fibrillation (Chronic) I48.0 DM2 (diabetes mellitus, type 2) (Chronic) E11.9 Dyslipidemia (Chronic) E78.5 Depression (Chronic) F32.9 Gout (Chronic) M10.9 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) E11.59 Pulmonary hypertension I27.20 HTN (hypertension) (Inactive) I10 Allergies cefepime HCl [From Maxipime] Allergy (Verified 12/01/19 06:55) Itching cephalexin monohydrate [From Keflex] Allergy (Verified 12/01/19 06:55) Hives clopidogrel [From Plavix] Allergy (Verified 12/01/19 06:55) Itching and hives all over ciprofloxacin [From Cipro] Adverse Reaction (Verified 12/01/19 06:55) Itching hydromorphone HCl [From Dilaudid] Adverse Reaction (Verified 12/01/19 06:55) Itching piperacillin [From Zosyn] Adverse Reaction (Verified 12/01/19 06:55) Hives tazobactam [From Zosyn] Adverse Reaction (Verified 12/01/19 06:55) Hives Home Medications: Ambulatory Orders Medication Instructions Recorded Allopurinol 300 mg PO DAILY 10/16/18 Aspirin [Aspirin, Baby] 81 mg PO DAILY@0800 10/16/18 Ergocalciferol (Vitamin D2) 50,000 unit PO WESA 10/16/18 [Drisdol] Hydroxychloroquine [Plaquenil] 200 mg PO BIDCM 10/16/18 Insulin Glargine,Hum.rec.anlog 10 unit SQ QHS 10/16/18 [Lantus] prednisone 5 mg tablet 2.5 mg PO DAILY tab 09/05/19 simvastatin 40 mg tablet 20 mg PO QHS tab 09/05/19 amlodipine 10 mg tablet 5 mg PO BID #30 tab 11/09/19 Surgical History: Surgical History (Last Reviewed 02/28/19 @ 15:45 by Little Waterman) S/P angioplasty with stent (Chronic) Onset Date: ~12/05/16 Z95.9 EDGARDO to mid LAD 12/05/2016 History of repair of rotator cuff Z98.890 History of total hysterectomy Z90.710 Hx of appendectomy Z90.49 Surgical History: angioplasty, hysterectomy, rotator cuff repair, - Psychiatric History: Depression [employer] AND [employer]ER History: No pertinent [employer]ER history Smoking Status: Never smoker - *Family History Paternal Family History: Family History (Last Reviewed 12/01/19 @ 11:16 by Jake Nesbitt MD) Father Hypertension Brother CAD (coronary artery disease) History Items: Diabetes Maternal Family History: Family History (Last Reviewed 12/01/19 @ 11:16 by Jake Nesbitt MD) Father Hypertension Brother CAD (coronary artery disease) History Items: Diabetes, Hypertension Review of Systems Constitutional: Denies: Anorexia, Chills, Fever, Night Sweats, Weight Change HEENT: Denies: Head Aches, Sinus Congestion, Sinus Drainage Cardiovascular: Denies: Chest Pain, Orthopnea, Palpitations, Paroxysmal Noc. Dyspnea Respiratory: Reports: Cough, Shortness of Breath Gastrointestinal: Reports: Abdominal Pain. Denies: Hematemesis, Hematochezia, Nausea, Melena, Vomiting Genitourinary: Denies: Dysuria, Frequency, Hematuria, Urgency Musculoskeletal: Denies: Joint Pain, Joint Tenderness Skin: Denies: Rash Neurological: Denies: Focal weakness, Numbness, Tingling Psychiatric: Denies: Homicidal Ideations, Suicidal Ideations Hematologic/ Lymphatic: Denies: Easy Bruising, Easy Bleeding VTE Information - Inpt Only VTE Present on Admission: No VTE Mechan Device Prophylaxis: None VTE Pharm Prophylaxis ordered?: Yes Patient Problems: Active and Suspected Problems (Last Reviewed 12/01/19 @ 11:16 by Jake Nesbitt MD) CHF (congestive heart failure) (Acute) Elevated d-dimer (Acute) Objective: GENERAL: Flat affect HEENT: Atraumatic; EYES; Anicteric, Normal Conjunctiva NECK; supple, normal thyroid, RESPIRATORY: Diminished to auscultation CARDIOVASCULAR: Regular S1 S2, GI: soft, normoactive bowel sounds, : No Renal angle tenderness; EXTREMITIES: Bipedal edema MUSCULOSKELETAL: no muscle waisting NEURO: Awake; no lateralizing signs. SKIN: No Rash PSYCH; Flat affect - Physical Exam Vitals/I&O's: Vital Signs Temp Pulse Resp BP Pulse Ox 98.0 F 83 17 151/70 H 98 12/01/19 06:55 12/01/19 08:43 12/01/19 08:43 12/01/19 08:43 12/01/19 08:43 Oxygen Flow Rate (L/min) 2 Oxygen Delivery Method Nasal Cannula Weight: 103.4 kg Body Mass Index (BMI) 41.7 Finger Stick Blood Glucose 139 Laboratory Results 12/01/19 07:20: WBC 11.2 H, RBC 3.08 L, Hgb 8.2 L, Hct 27.1 L, MCV 88.0, MCH 26.6 L, MCHC 30.3 L, RDW Std Deviation 53.3 H, RDW Coeff of Raymond 16.9 H, Plt Count 217, MPV 8.9, Immature Gran % (Auto) 0.400, Neut % (Auto) 68.6, Lymph % (Auto) 19.7, Charles % (Auto) 6.2, Eos % (Auto) 4.5, Baso % (Auto) 0.6, Absolute Neuts (auto) 7.7, Absolute Lymphs (auto) 2.21, Nucleated RBC % 0 12/01/19 07:20: D-Dimer Quant (PE/DVT) 1.89 H* 12/01/19 07:20: Sodium 141, Potassium 3.8, Chloride 110 H, Carbon Dioxide 24.0, Anion Gap 7, BUN 23 H, Creatinine 1.78 H, Estim Creat Clear Calc 22.26, Est GFR (MDRD) Af Amer 36 L, Est GFR (MDRD) Non-Af 30 L, BUN/Creatinine Ratio 12.9, Glucose 128 H, Calcium 8.9, Troponin I < 0.015 12/01/19 07:35: Urine Color Straw, Urine Clarity Cloudy, Urine pH 6.0, Ur Specific Craig 1.015, Urine Protein 100 H, Urine Glucose (UA) Normal, Urine Ketones Negative, Urine Occult Blood 150 H, Urine Nitrite Negative, Urine Bilirubin Negative, Urine Urobilinogen Normal, Ur Leukocyte Esterase 500 H, Urine RBC Pending, Urine WBC Pending, Ur Squamous Epith Cells Pending, Urine Bacteria Pending, Urine Mucus Pending Assessment/Plan All Active Problems (Last Reviewed 12/01/19 @ 11:16 by Jake Nesbitt MD) CHF (congestive heart failure) (Acute) Elevated d-dimer (Acute) UTI (urinary tract infection) (Acute) Gastroenteritis (Resolved) Acute cystitis (Acute) Cellulitis (Resolved) Sepsis (Resolved) DILCIA (acute kidney injury) (Resolved) Afib (Resolved) Chronic ulcer of left leg with fat layer exposed (Resolved) DVT (deep venous thrombosis) (Resolved) Nonhealing ulcer of left lower extremity with fat layer exposed (Resolved) Pulmonary emboli (Resolved) Severe sepsis (Resolved) UTI (urinary tract infection) (Resolved) Venous stasis ulcer of leg without varicose veins (Resolved) Wound abscess (Resolved) Chronic articular rheumatism (Ruled-out) Chronic foot ulcer (Ruled-out) Pyoderma gangrenosum (Ruled-out) 74-year-old lady with multiple comorbidities including known congestive heart failure with preserved ejection fraction who presented with progressive shortness of breath with bilateral edema. She was also found to have abdominal discomfort and assessment of CHF, acute cystitis made admitted to monitored bed for further management 1. Acute on chronic congestive heart failure with preserved ejection fraction ?Admitted to monitored bed placed on strict input and output, daily weights, low-sodium diet, fluid restriction, supplemental oxygen titrated to keep saturation greater than 90 in addition to IV Lasix. Repeat echo ordered for subsequent evaluation 2. Acute cystitis Patient has allergies to multiple medications recent outpatient urinalysis with culture obtained came back positive for Pseudomonas. Patient was therefore started on meropenem repeat cultures sent 3. Diabetes mellitus type 2 with complications including diabetic nephropathy ~ patient's oral hypoglycemics held. Placed on long acting insulin, Accu-Cheks a.c. and at bedtime and covered with sliding scale insulin 4. 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 Coronary artery disease Status post PTCA/EDGARDO to mid LAD lesion in November 2016. Patient is currently on recommended medications 6. Rheumatoid arthritis ?Patient is on Plaquenil 7. Paroxysmal atrial fibrillation ?Patient presented with sinus rhythm 8. History of previous DVT ?Patient had elevated d-dimer on admission venous duplex obtained came back negative. VQ scan could not be completed since patient could not lay flat plan is for procedure to be repeated once patient CHF improves. Patient already has an IVC filter in place 9. Pulmonary hypertension ?Aerosol treatment as needed in addition to supplemental oxygen 9. Gout Symptoms controlled with allopurinol 10. Rheumatoid arthritis ?Symptoms controlled on Plaquenil in addition to patient being on prednisone 5 mg daily 11. Morbid obesity with BMI of 40 Weight loss advised 12. Bilateral lower extremity varicose veins ?With chronic venous insufficiency 13. Hypertension ~ blood pressure controlled, home medications continued with dose adjustment as needed 14. DVT prophylaxis ?Patient has an IVC filter was also placed on enoxaparin dose adjusted for kidney function Advance planning; did discuss with the patient regarding advanced directives as well as CODE STATUS. Did explain the various scenarios involved ( FULL CODE, DNR CCA, DNR CCA with no intubation, and DNR CC and what each meant) patient elected full code with CPR and intubation if warranted.. Order was placed. Time spent on discussion 16 minutes. Code Visit Inpatient E&M: 86339 Init Hosp L3 Procedures: 24481 Advncd Care Plan 30 Min
[2019-12-01 08:48] LABS: Bacteria 2+ /hpf (None Seen); Red Blood Cells-Urine 0-5 SEEN /hpf (0-5); Squamous Epithelial Cells - UA 0-5 SEEN /hpf (5-10); White Blood Cells >100 SEEN /hpf (0-5)
--- NOTE | 2019-12-01 09:02 | ECHOD_ITS ---
Reason For Study: CHF Procedure This was a 2D Doppler, Color Flow transthoracic echocardiogram. The study was technically difficult. Exam performed portable in patient room. Left Ventricle Normal LV size. Left ventricular systolic function is normal. The estimated ejection fraction is 60 %. No regional wall motion abnormalities noted. Right Ventricle Normal RV size. Normal systolic function. Atria The left atrium is moderately enlarged. Normal right atrium. No doppler evidence for ASD. Mitral Valve There is mild mitral annular calcification. Extension the mitral annular calcification onto the base of the posterior mitral valve leaflet. Trivial mitral valve insufficiency. Tricuspid Valve Normal tricuspid valve. Mild tricuspid valve insufficiency. Right ventricular systolic pressure estimated to be 42 mmHg. Aortic Valve Trisinus/trileaflet aortic valve. Mild focal aortic valve calcification. Mild aortic stenosis. Trivial aortic valve insufficiency. Pulmonic Valve The pulmonic valve is not well visualized. Great Vessels Normal sized aortic root. Pericardium/Pleural No pericardial effusion. MMode/2D Measurements & Calculations LVIDd: 4.7 cm IVSd: 1.3 cm LVOT diam: 2.0 cm LVIDs: 2.7 cm LVPWd: 1.2 cm LVOT area: 3.1 cm2 FS: 43.6 % Ao root diam: 3.1 cm LAV(MOD-bp): 64.9 ml LA A4 area: 23.1 cm2 LA dimension: 3.7 cm LAV(MOD-bp) Indexed: 32.8 ml/m2 LAV(MOD-sp2): 55.1 ml LAV(MOD-sp4): 69.8 ml Time Measurements MV dec time: 0.24 sec Doppler Measurements & Calculations MV E max david: 132.6 cm/sec Lat Peak E' David: 9.5 cm/sec Med Peak E' David: 6.4 cm/sec MV A max david: 101.3 cm/sec E/E' lat: 14.0 E/E' med: 20.7 MV E/A: 1.3 MV V2 max: 150.2 cm/sec MV P1/2t max david: 150.2 cm/sec Ao V2 max: 223.0 cm/sec MV max P.0 mmHg MV P1/2t: 75.0 msec Ao max P.9 mmHg MV V2 mean: 92.2 cm/sec MV dec slope: 586.8 cm/sec2 BONI(V,D): 1.8 cm2 MV mean P.9 mmHg MVA(P1/2t): 2.9 cm2 MV V2 VTI: 35.8 cm AI max david: 287.2 cm/sec LV V1 max: 130.0 cm/sec PA V2 max: 169.5 cm/sec AI max P.0 mmHg LV V1 max P.8 mmHg AI dec slope: 230.4 cm/sec2 AI P1/2t: 365.1 msec TR max david: 313.9 cm/sec TR max P.4 mmHg Interpretation Summary The study was technically difficult. Left ventricular systolic function is normal. The estimated ejection fraction is 60 %. The left atrium is moderately enlarged. There is mild mitral annular calcification. Extension the mitral annular calcification onto the base of the posterior mitral valve leaflet. Trivial mitral valve insufficiency. Mild tricuspid valve insufficiency. Mild aortic stenosis. Trivial aortic valve insufficiency. Right ventricular systolic pressure estimated to be 42 mmHg. Transmitral diastolic flow velocities suggest diastolic dysfunction (pseudonormal pattern). Ordering Physician: Jake Nesbitt Referring Physician: Sonja Feliciano Performed By: Venancio Jarrett RCS
[2019-12-01] MEDS: Enoxaparin 30 MG/0.3 ML Syringe SC (10:26)
[2019-12-01] MEDS: Nitrofurantoin Macrocrystals 100 MG Capsule PO (10:26)
[2019-12-01] MEDS: Allopurinol 300 MG Tablet PO (10:27)
[2019-12-01] MEDS: amLODIPine 5 MG Tablet PO ×2 (10:27→21:27)
[2019-12-01] MEDS: Furosemide 100 MG/10 ML Vial 60 MG IV ×2 (12:30→21:29)
--- NOTE | 2019-12-01 12:34 | CASEMGMT ---
LW/POA forms scanned into summary tab of [facility]. More Stapleton is listed as pt's medical POA. ANN Messer
[2019-12-01 12:45] LABS: Bedside Glucose 139 mg/dL (70-110)
--- NOTE | 2019-12-01 14:07 | PCM.CONS.R ---
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 She denied chest pain, orthopnea or palpitations. Admits to weakness, no recent falls. Denied fever, chills, cough. No nausea, vomiting. She did complain of leg swelling, fluid retention. She is not on diuretics at home. Baseline creatinine 1.7 on admit. Creatinine in September 2019 was elevated at 2.4. She was last seen in my office in May 2018. She failed to follow up in August 2018. States felt fine so did not f/u. She has been followed quarterly by Sonja Feliciano NP with appt in August 2019. She was not able to have VQ scan done to r/o PE with elevated ddimer due to dyspnea. She is diuresing well on iv lasix. She was started on iv antibiotics. She is treated for possible UTI. She has chronic urinary incontinence. Denied dysuria, hematuria. She does use protective pad. Echo done today. - Allergies Allergies: Allergies cefepime HCl [From Maxipime] Allergy (Verified 12/01/19 06:55) Itching cephalexin monohydrate [From Keflex] Allergy (Verified 12/01/19 06:55) Hives clopidogrel [From Plavix] Allergy (Verified 12/01/19 06:55) Itching and hives all over ciprofloxacin [From Cipro] Adverse Reaction (Verified 12/01/19 06:55) Itching hydromorphone HCl [From Dilaudid] Adverse Reaction (Verified 12/01/19 06:55) Itching piperacillin [From Zosyn] Adverse Reaction (Verified 12/01/19 06:55) Hives tazobactam [From Zosyn] Adverse Reaction (Verified 12/01/19 06:55) Hives - Current Medications Current Medications: Current Medications Acetaminophen (Tylenol) 650 mg PO Q6H PRN PRN PRN Reason: Pain Score 1-3/Temp > 100.7 F Al Hydroxide/Mg Hydroxide (Mylanta Ii) 30 ml PO Q6H PRN PRN PRN Reason: Gastric Burning Albuterol Sulfate (Ventolin Aerosols) 2.5 mg INHALATION Q2H PRN PRN PRN Reason: SOB/Wheezing Allopurinol (Zyloprim) 300 mg PO DAILY@0800 [facility] Last Admin: 12/01/19 10:27 Dose: 300 mg Documented by: Amlodipine Besylate (Norvasc) 5 mg PO BID [facility] Last Admin: 12/01/19 10:27 Dose: 5 mg Documented by: Aspirin (Aspirin, Baby) 81 mg PO DAILY@0800 [facility] Atorvastatin Calcium (Lipitor) 10 mg PO QHS [facility] Enoxaparin Sodium (Lovenox) 30 mg SC DAILY [facility] Last Admin: 12/01/19 10:26 Dose: 30 mg Documented by: Ergocalciferol (Vitamin D) 50,000 unit PO WeSa@1000 [place] Furosemide (Lasix) 60 mg IV Q8 [facility] Last Admin: 12/01/19 12:30 Dose: 60 mg Documented by: Glucagon () 1 mg IM .X1 PRN PRN Reason: Hypoglycemia Guaifenesin (Robitussin) 20 ml PO Q4H PRN PRN PRN Reason: COUGH Hydroxychloroquine Sulfate (Plaquenil) 200 mg PO BIDCM [facility] Dextrose (Dextrose 10%-Water) 250 mls @ 999 mls/hr IV .Q16M PRN; Protocol PRN Reason: HYPOGLYCEMIA Meropenem 500 mg/ Sodium (Chloride) 60 mls @ 100 mls/hr IV Q12 [facility] Last Infusion: 12/01/19 13:17 Dose: Infused Documented by: Insulin Glargine (Lantus (Bkc)) 10 units SC QHS [facility] Insulin Human Lispro (Humalog Kwikpen (Bkc)) 0 unit SC ACHS [facility]; Protocol Last Admin: 12/01/19 12:30 Dose: Not Given Documented by: Magnesium Hydroxide (Milk Of Magnesia) 30 ml PO DAILY PRN PRN PRN Reason: Constipation Melatonin (Melatonin) 3 mg PO QHS PRN PRN PRN Reason: INSOMNIA Nitroglycerin (Nitrostat) 0.4 mg SUBLINGUAL Q5M PRN PRN Reason: CARDIAC/CHEST PAIN Nystatin (Mycostatin Powder) 1 applic TOPICAL BID [facility]; Protocol Oxycodone HCl (Oxyir) 5 mg PO Q4H PRN PRN PRN Reason: Pain Score 4-5/10 Oxycodone HCl (Oxyir) 10 mg PO Q4H PRN PRN PRN Reason: Pain Score 6-10/10 Prednisone () 2.5 mg PO DAILY@0800 [place] Promethazine HCl (Phenergan) 25 mg IM Q6H PRN PRN PRN Reason: Breakthrough Nausea/Vomiting Sodium Chloride () 10 - 40 ml IV UD PRN PRN Reason: SALINE FLUSH - Past Medical History Past Medical History (Chronic Problems): Chronic Problems (Last Reviewed 12/01/19 @ 12:07 by Jake Nesbitt MD) Venous insufficiency of both lower extremities (Chronic) Wound of right lower extremity (Chronic) Traumatic, penetrating with fat layer exposed. Ulcer of right lower extremity with fat layer exposed (Chronic) Essential hypertension (Chronic) Debility (Chronic) Premature atrial contractions (Chronic) Premature ventricular contraction (Chronic) Atherosclerotic heart disease of [place] coronary artery without angina pectoris (Chronic) Varicose veins of both lower extremities (Chronic) Chronic renal failure, stage 4 (severe) (Chronic) Chronic steroid use (Chronic) Morbid obesity with BMI of 45.0-49.9, adult (Chronic) Osteopenia (Chronic) Pulmonary hypertension (Chronic) Personal history of DVT (deep vein thrombosis) (Chronic) Presence of IVC filter (Chronic) Ulcer of left lower extremity with fat layer exposed (Chronic) mixed venous arterial left posterior calf Lymphedema (Chronic) PVD (peripheral vascular disease) (Chronic) Paroxysmal atrial fibrillation (Chronic) S/P angioplasty with stent (Chronic ~12/05/16) EDGARDO to mid LAD 12/05/2016 DM2 (diabetes mellitus, type 2) (Chronic) Dyslipidemia (Chronic) Depression (Chronic) Gout (Chronic) 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) - Past Surgical History Surgical History: angioplasty, hysterectomy, rotator cuff repair, - - Social History Smoking Status: Never smoker - Family History Paternal Family History: Family History (Last Reviewed 12/01/19 @ 11:16 by Jake Nesbitt MD) Father Hypertension Brother CAD (coronary artery disease) History Items: Diabetes Maternal Family History: Family History (Last Reviewed 12/01/19 @ 11:16 by Jake Nesbitt MD) Father Hypertension Brother CAD (coronary artery disease) History Items: Diabetes, Hypertension Review of Systems Constitutional: Reports: Weakness, Fatigue. Denies: Anorexia, Chills, Fever Eyes: Denies: Vision Change Cardiovascular: Reports: Edema. Denies: Chest Pain, Syncope Respiratory: Reports: Shortness of Breath, Shortness of breath at rest, Shortness of breath upon exertion. Denies: Cough Gastrointestinal: Denies: Constipation, Diarrhea, Nausea, Vomiting Genitourinary: Reports: Incontinence, Urgency. Denies: Dysuria Musculoskeletal: Reports: - - generalized weakness with dyspnea Skin: Denies: Rash Neurological: Reports: - - no falls. Denies: Tremor, Seizures Hematologic/ Lymphatic: Reports: Anemia, Hx of blood clot Patient Problems: Active and Suspected Problems (Last Reviewed 12/01/19 @ 12:07 by Jake Nesbitt MD) CHF (congestive heart failure) (Acute) Elevated d-dimer (Acute) - Physical Exam Vitals/I&O's: Vital Signs Temp Pulse Resp BP Pulse Ox 98.4 F 84 19 H 155/87 H 97 12/01/19 09:15 12/01/19 09:29 12/01/19 09:15 12/01/19 09:15 12/01/19 09:15 Oxygen Flow Rate (L/min) 1 Oxygen Delivery Method Nasal Cannula Weight: 99.3 kg Body Mass Index (BMI) 40.0 Finger Stick Blood Glucose 139 Intake and Output for Last 24 Hours 11/29/19 11/30/19 12/01/19 23:59 23:59 23:59 Intake Total 300 / 300 Output Total 200 / 200 Balance 100 / 100 General: Alert, Oriented x3, Cooperative, - - mild conversational dyspnea Oral: Moist Mucosa Lungs: Rales Cardiovascular: Irregular Rate Abdomen: Bowel Sounds Present, Soft, Non Tender, Non-Distended, Obese Extremities: Edema - BLE Skin: Ulcer/ Wound - left pretibial area, chronic Neurological: Cranial nerves II-XII grossly intact Psych/Mental Status: Normal Affect, Appropriate, Alert and oriented to time, place, person, mood and affect Laboratory Results 12/01/19 07:20: WBC 11.2 H, RBC 3.08 L, Hgb 8.2 L, Hct 27.1 L, MCV 88.0, MCH 26.6 L, MCHC 30.3 L, RDW Std Deviation 53.3 H, RDW Coeff of Raymond 16.9 H, Plt Count 217, MPV 8.9, Immature Gran % (Auto) 0.400, Neut % (Auto) 68.6, Lymph % (Auto) 19.7, [place] % (Auto) 6.2, Eos % (Auto) 4.5, Baso % (Auto) 0.6, Absolute Neuts (auto) 7.7, Absolute Lymphs (auto) 2.21, Nucleated RBC % 0 12/01/19 07:20: D-Dimer Quant (PE/DVT) 1.89 H* 12/01/19 07:20: Sodium 141, Potassium 3.8, Chloride 110 H, Carbon Dioxide 24.0, Anion Gap 7, BUN 23 H, Creatinine 1.78 H, Estim Creat Clear Calc 22.26, Est GFR (MDRD) Af Amer 36 L, Est GFR (MDRD) Non-Af 30 L, BUN/Creatinine Ratio 12.9, Glucose 128 H, Calcium 8.9, Troponin I < 0.015 12/01/19 07:35: Urine Color Straw, Urine Clarity Cloudy, Urine pH 6.0, Ur Specific [place] 1.015, Urine Protein 100 H, Urine Glucose (UA) Normal, Urine Ketones Negative, Urine Occult Blood 150 H, Urine Nitrite Negative, Urine Bilirubin Negative, Urine Urobilinogen Normal, Ur Leukocyte Esterase 500 H, Urine RBC 0-5 SEEN, Urine WBC >100 SEEN, Ur Squamous Epith Cells 0-5 SEEN, Urine Bacteria 2+, Urine Mucus 0 SEEN 12/01/19 10:25: Troponin I < 0.015 12/01/19 12:20: POC Glucose 139 H 12/01/19 13:35: Troponin I Pending Clinical Impression(s) from Imaging Studies Chest X-Ray 12/01/19 07:08 IMPRESSION: CHF with pulmonary edema. Bilateral hilar prominence is probably on a vascular basis. Overlying perihilar mass or lymphadenopathy cannot be excluded. Follow-up is advised. Electronically Signed: Omar Fragoso MD at 7:51 EST , Service support , Current Medications Acetaminophen (Tylenol) 650 mg PO Q6H PRN PRN PRN Reason: Pain Score 1-3/Temp > 100.7 F Al Hydroxide/Mg Hydroxide (Mylanta Ii) 30 ml PO Q6H PRN PRN PRN Reason: Gastric Burning Albuterol Sulfate (Ventolin Aerosols) 2.5 mg INHALATION Q2H PRN PRN PRN Reason: SOB/Wheezing Allopurinol (Zyloprim) 300 mg PO DAILY@0800 [facility] Last Admin: 12/01/19 10:27 Dose: 300 mg Documented by: Amlodipine Besylate (Norvasc) 5 mg PO BID [facility] Last Admin: 12/01/19 10:27 Dose: 5 mg Documented by: Aspirin (Aspirin, Baby) 81 mg PO DAILY@0800 [facility] Atorvastatin Calcium (Lipitor) 10 mg PO QHS [facility] Enoxaparin Sodium (Lovenox) 30 mg SC DAILY [facility] Last Admin: 12/01/19 10:26 Dose: 30 mg Documented by: Ergocalciferol (Vitamin D) 50,000 unit PO WeSa@1000 [place] Furosemide (Lasix) 60 mg IV Q8 [facility] Last Admin: 12/01/19 12:30 Dose: 60 mg Documented by: Glucagon () 1 mg IM .X1 PRN PRN Reason: Hypoglycemia Guaifenesin (Robitussin) 20 ml PO Q4H PRN PRN PRN Reason: COUGH Hydroxychloroquine Sulfate (Plaquenil) 200 mg PO BIDCM [facility] Dextrose (Dextrose 10%-Water) 250 mls @ 999 mls/hr IV .Q16M PRN; Protocol PRN Reason: HYPOGLYCEMIA Meropenem 500 mg/ Sodium (Chloride) 60 mls @ 100 mls/hr IV Q12 [facility] Last Infusion: 12/01/19 13:17 Dose: Infused Documented by: Insulin Glargine (Lantus (Bkc)) 10 units SC QHS [facility] Insulin Human Lispro (Humalog Kwikpen (Bk)) 0 unit SC ACHS [facility]; Protocol Last Admin: 12/01/19 12:30 Dose: Not Given Documented by: Magnesium Hydroxide (Milk Of Magnesia) 30 ml PO DAILY PRN PRN PRN Reason: Constipation Melatonin (Melatonin) 3 mg PO QHS PRN PRN PRN Reason: INSOMNIA Nitroglycerin (Nitrostat) 0.4 mg SUBLINGUAL Q5M PRN PRN Reason: CARDIAC/CHEST PAIN Nystatin (Mycostatin Powder) 1 applic TOPICAL BID [facility]; Protocol Oxycodone HCl (Oxyir) 5 mg PO Q4H PRN PRN PRN Reason: Pain Score 4-5/10 Oxycodone HCl (Oxyir) 10 mg PO Q4H PRN PRN PRN Reason: Pain Score 6-10/10 Prednisone () 2.5 mg PO DAILY@0800 [facility] Promethazine HCl (Phenergan) 25 mg IM Q6H PRN PRN PRN Reason: Breakthrough Nausea/Vomiting Sodium Chloride () 10 - 40 ml IV UD PRN PRN Reason: SALINE FLUSH Assessment/Plan All Active Problems (Last Reviewed 12/01/19 @ 12:07 by Jake Nesbitt MD) CHF (congestive heart failure) (Acute) Elevated d-dimer (Acute) UTI (urinary tract infection) (Acute) Gastroenteritis (Resolved) Acute cystitis (Acute) Cellulitis (Resolved) Sepsis (Resolved) DILCIA (acute kidney injury) (Resolved) Afib (Resolved) Chronic ulcer of left leg with fat layer exposed (Resolved) DVT (deep venous thrombosis) (Resolved) Nonhealing ulcer of left lower extremity with fat layer exposed (Resolved) Pulmonary emboli (Resolved) Severe sepsis (Resolved) UTI (urinary tract infection) (Resolved) Venous stasis ulcer of leg without varicose veins (Resolved) Wound abscess (Resolved) Chronic articular rheumatism (Ruled-out) Chronic foot ulcer (Ruled-out) Pyoderma gangrenosum (Ruled-out) 1. CKD stage 4 with renal fxn at baseline. Continue to monitor while on lasix iv. Underlying diabetic nephropathy. Check 24h urine, PTH, vit D. Failed to f/u in 2018 and this week. 2. Pulmonary edema, fluid retention. Continue iv lasix. 3. Dm2 primary service mgmt 4. HTN stable 5. Mild pulmonary hypertension. 6. Anemia check iron studies.
[2019-12-01] MEDS: Hydroxychloroquine 200 MG Tablet PO (16:12)
[2019-12-01] MEDS: proMETHazine 25 MG/ML Syringe IM (16:50)
[2019-12-01 20:06] LABS: Bedside Glucose 93 mg/dL (70-110)
[2019-12-01] MEDS: Atorvastatin Calcium 10 MG Tablet PO (21:27)
[2019-12-01] MEDS: Nystatin Powder 15gm Bottle 1 APPLIC TOPICAL (21:39)
[2019-12-01 22:11] LABS: Bedside Glucose 113 mg/dL (70-110)
[2019-12-02] VITALS (12 sets, daily range): BP systolic 151–169; BP diastolic 55–86; PULSE 86–100; RESP 14–18; TEMP 36.9–37.4; O2SAT 87–97
[2019-12-02] MEDS: Furosemide 100 MG/10 ML Vial 60 MG IV (05:22)
[2019-12-02] MEDS: 0.9% Saline Lock 10 ML Syringe IV ×3 (05:26→12:21)
[2019-12-02 06:07] LABS: Absolute Lymphocyte Count 2.26 X10^3/uL (0.83-4.51); Absolute Neutrophil Count 6.5 X10^3/uL (2.0-7.7); Basophil# 0.06 X10^3/uL; Basophil% 0.6 % (0-1); Eosinophils% 5.9 % (0-5); Hematocrit 28.6 % (37-47); Hemoglobin 8.7 g/dL (12.0-15.0); Lymphocyte # 2.26 X10^3/ul (4.0); Lymphocyte % 22.3 % (19-41); Mean Corp Hgb Conc 30.4 g/dL (32-36); Mean Corpuscular Hgb 26.6 pg (27.0-32.0); Mean Corpuscular Volume 87.5 fL (81-99); Mean Platelet Vol. 9.6 fl (6.2-12.0); Monocyte# 0.67 X10^3/uL; Monocyte% 6.6 % (0-10); NRBC Flagged by Analyzer 0 % (0-5); Neutrophil # 6.51 X10^3/uL (2.7-7.7); Neutrophil % 64.3 % (47-70); Platelet Count 235 K/mm3 (150-450); RBC Distribution Width CV 16.6 % (11.6-14.6); RBC Distribution Width SD 52.8 fl (35.1-43.9); Red Blood Count 3.27 M/mm3 (4.2-5.4); White Blood Count 10.1 K/mm3 (4.4-11.0)
[2019-12-02 06:34] LABS: Anion Gap 6 (5-15); BUN 26 mg/dL (7-18); BUN/Creat Ratio 13.3 RATIO (10-20); Calcium,Total 8.7 mg/dL (8.5-10.1); Chloride 105 mmol/L (98-107); Creatinine, Serum 1.95 mg/dL (0.55-1.02); EST Glomerular Filtration Rate 27 mL/min (>60); Est Glom Filt Rate - Afr Amer 32 mL/min (>60); Estimated Creatinine Clearance 20.32 ml/min; Ferritin 47 ng/mL (8-252); Glucose 108 mg/dL (74-106); Iron Binding Capacity,Total 285 ug/dL (250-450); Magnesium 1.8 mg/dL (1.6-2.6); Potassium 3.5 mmol/L (3.5-5.1); Sodium Level 141 mmol/L (136-145)
[2019-12-02 06:50] LABS: Bedside Glucose 108 mg/dL (70-110)
[2019-12-02 08:31] LABS: PTHIN 207.8 pg/mL (18.4-80.1)
[2019-12-02] MEDS: Allopurinol 300 MG Tablet PO (08:47)
[2019-12-02] MEDS: Aspirin 81 MG TAB.CHEW PO (08:47)
[2019-12-02] MEDS: predniSONE 5 MG Tablet 2.5 MG PO (08:47)
[2019-12-02] MEDS: Enoxaparin 30 MG/0.3 ML Syringe SC (08:47)
[2019-12-02] MEDS: Hydroxychloroquine 200 MG Tablet PO ×2 (08:47→17:16)
[2019-12-02] MEDS: Nystatin Powder 15gm Bottle 1 APPLIC TOPICAL ×2 (08:47→22:00)
[2019-12-02] MEDS: amLODIPine 5 MG Tablet PO ×2 (08:48→21:58)
--- NOTE | 2019-12-02 09:07 | NURSING ---
wound photo: left posterior lower leg
--- NOTE | 2019-12-02 09:20 | PCM.PN.HOSP ---
Patient Problems: Active and Suspected Problems (Last Reviewed 12/01/19 @ 12:07 by Jake Nesbitt MD) CHF (congestive heart failure) (Acute) Elevated d-dimer (Acute) Reason for Visit: Follow-up acute cystitis and CHF Subjective: 74-year-old lady with multiple comorbidities including known congestive heart failure with preserved ejection fraction who presented with progressive shortness of breath with bilateral edema. She was also found to have abdominal discomfort and assessment of CHF, acute cystitis made admitted to monitored bed for further management Patient kidney function did worsen. Adjusted dose of Lasix switched from 60 mg IV every 6 to 40 mg p.o. twice daily. Patient was also seen in consultation by Dr. Vela nephrology, her notes and recommendations reviewed. Objective: GENERAL: Flat affect HEENT: Atraumatic; EYES; Anicteric, Normal Conjunctiva NECK; supple, normal thyroid, RESPIRATORY: Diminished to auscultation CARDIOVASCULAR: Regular S1 S2, GI: soft, normoactive bowel sounds, : No Renal angle tenderness; EXTREMITIES: Bipedal edema MUSCULOSKELETAL: no muscle waisting NEURO: Awake; no lateralizing signs. SKIN: No Rash PSYCH; Flat affect Vitals/I&O's: Vital Signs Temp Pulse Resp BP Pulse Ox 98.4 F 86 14 151/78 H 92 12/02/19 09:00 12/02/19 09:00 12/02/19 09:00 12/02/19 09:00 12/02/19 09:01 Oxygen Flow Rate (L/min) 1 Oxygen Delivery Method Room Air Weight: 99.3 kg Body Mass Index (BMI) 40.0 Finger Stick Blood Glucose 139 Intake and Output for Last 24 Hours 11/30/19 12/01/19 12/02/19 23:59 23:59 23:59 Intake Total 720 / 720 120 / 120 Output Total 1100 / 1100 2049 / 2049 Balance -380 / -380 -1930 / -1930 Laboratory Results 12/01/19 10:25: Troponin I < 0.015 12/01/19 12:20: POC Glucose 139 H 12/01/19 13:35: Troponin I 0.017 12/01/19 16:10: POC Glucose 93 12/01/19 21:15: POC Glucose 113 H 12/02/19 05:38: WBC 10.1, RBC 3.27 L, Hgb 8.7 L, Hct 28.6 L, MCV 87.5, MCH 26.6 L, MCHC 30.4 L, RDW Std Deviation 52.8 H, RDW Coeff of Raymond 16.6 H, Plt Count 235, MPV 9.6, Immature Gran % (Auto) 0.300, Neut % (Auto) 64.3, Lymph % (Auto) 22.3, [place] % (Auto) 6.6, Eos % (Auto) 5.9 H, Baso % (Auto) 0.6, Absolute Neuts (auto) 6.5, Absolute Lymphs (auto) 2.26, Nucleated RBC % 0 12/02/19 05:38: Sodium 141, Potassium 3.5, Chloride 105, Carbon Dioxide 30.0, Anion Gap 6, BUN 26 H, Creatinine 1.95 H, Estim Creat Clear Calc 20.32, Est GFR (MDRD) Af Amer 32 L, Est GFR (MDRD) Non-Af 27 L, BUN/Creatinine Ratio 13.3, Glucose 108 H, Calcium 8.7, Magnesium 1.8, TIBC 285, Ferritin 47 12/02/19 05:38: PTH Intact 207.8 H 12/02/19 06:45: POC Glucose 108 Current Medications Acetaminophen (Tylenol) 650 mg PO Q6H PRN PRN PRN Reason: Pain Score 1-3/Temp > 100.7 F Al Hydroxide/Mg Hydroxide (Mylanta Ii) 30 ml PO Q6H PRN PRN PRN Reason: Gastric Burning Albuterol Sulfate (Ventolin Aerosols) 2.5 mg INHALATION Q2H PRN PRN PRN Reason: SOB/Wheezing Allopurinol (Zyloprim) 300 mg PO DAILY@0800 [facility] Last Admin: 12/02/19 08:47 Dose: 300 mg Documented by: Amlodipine Besylate (Norvasc) 5 mg PO BID [facility] Last Admin: 12/02/19 08:48 Dose: 5 mg Documented by: Aspirin (Aspirin, Baby) 81 mg PO DAILY@0800 [facility] Last Admin: 12/02/19 08:47 Dose: 81 mg Documented by: Atorvastatin Calcium (Lipitor) 10 mg PO QHS [facility] Last Admin: 12/01/19 21:27 Dose: 10 mg Documented by: Enoxaparin Sodium (Lovenox) 30 mg SC DAILY [facility] Last Admin: 12/02/19 08:47 Dose: 30 mg Documented by: Ergocalciferol (Vitamin D) 50,000 unit PO WeSa@1000 [place] Furosemide (Lasix) 60 mg IV Q8 [facility] Last Admin: 12/02/19 05:22 Dose: 60 mg Documented by: Glucagon () 1 mg IM .X1 PRN PRN Reason: Hypoglycemia Guaifenesin (Robitussin) 20 ml PO Q4H PRN PRN PRN Reason: COUGH Hydroxychloroquine Sulfate (Plaquenil) 200 mg PO BIDCM [facility] Last Admin: 12/02/19 08:47 Dose: 200 mg Documented by: Dextrose (Dextrose 10%-Water) 250 mls @ 999 mls/hr IV .Q16M PRN; Protocol PRN Reason: HYPOGLYCEMIA Meropenem 500 mg/ Sodium (Chloride) 60 mls @ 100 mls/hr IV Q12 [facility] Last Admin: 12/02/19 08:46 Dose: 100 mls/hr Documented by: Insulin Glargine (Lantus (Bkc)) 10 units SC QHS [facility] Last Admin: 12/01/19 21:37 Dose: 10 u Documented by: Insulin Human Lispro (Humalog Kwikpen (Bkc)) 0 unit SC ACHS [facility]; Protocol Last Admin: 12/02/19 06:47 Dose: Not Given Documented by: Magnesium Hydroxide (Milk Of Magnesia) 30 ml PO DAILY PRN PRN PRN Reason: Constipation Melatonin (Melatonin) 3 mg PO QHS PRN PRN PRN Reason: INSOMNIA Nitroglycerin (Nitrostat) 0.4 mg SUBLINGUAL Q5M PRN PRN Reason: CARDIAC/CHEST PAIN Nystatin (Mycostatin Powder) 1 applic TOPICAL BID [facility]; Protocol Last Admin: 12/02/19 08:47 Dose: 1 applicatio Documented by: Oxycodone HCl (Oxyir) 5 mg PO Q4H PRN PRN PRN Reason: Pain Score 4-5/10 Oxycodone HCl (Oxyir) 10 mg PO Q4H PRN PRN PRN Reason: Pain Score 6-10/10 Prednisone () 2.5 mg PO DAILY@0800 [facility] Last Admin: 12/02/19 08:47 Dose: 2.5 mg Documented by: Promethazine HCl (Phenergan) 25 mg IM Q6H PRN PRN PRN Reason: Breakthrough Nausea/Vomiting Last Admin: 12/01/19 16:50 Dose: 25 mg Documented by: Sodium Chloride () 10 - 40 ml IV UD PRN PRN Reason: SALINE FLUSH Last Admin: 12/02/19 08:46 Dose: 10 ml Documented by: STROKE Vital Signs/Narrative: Vital Signs Temp Pulse Resp BP Pulse Ox 12/02/19 09:01 92 12/02/19 09:00 98.4 F 86 14 151/78 H 95 12/02/19 07:50 94 12/02/19 07:00 90 Medical Necessity - Tobacco Use Smoking Status: Never smoker Assessment/Plan All Active Problems (Last Reviewed 12/01/19 @ 12:07 by Jake Nesbitt MD) CHF (congestive heart failure) (Acute) Elevated d-dimer (Acute) UTI (urinary tract infection) (Acute) Gastroenteritis (Resolved) Acute cystitis (Acute) Cellulitis (Resolved) Sepsis (Resolved) DILCIA (acute kidney injury) (Resolved) Afib (Resolved) Chronic ulcer of left leg with fat layer exposed (Resolved) DVT (deep venous thrombosis) (Resolved) Nonhealing ulcer of left lower extremity with fat layer exposed (Resolved) Pulmonary emboli (Resolved) Severe sepsis (Resolved) UTI (urinary tract infection) (Resolved) Venous stasis ulcer of leg without varicose veins (Resolved) Wound abscess (Resolved) Chronic articular rheumatism (Ruled-out) Chronic foot ulcer (Ruled-out) Pyoderma gangrenosum (Ruled-out) 74-year-old lady with multiple comorbidities including known congestive heart failure with preserved ejection fraction who presented with progressive shortness of breath with bilateral edema. She was also found to have abdominal discomfort and assessment of CHF, acute cystitis made admitted to monitored bed for further management 1. Acute on chronic congestive heart failure with preserved ejection fraction ?Admitted to monitored bed placed on strict input and output, daily weights, low-sodium diet, fluid restriction, supplemental oxygen titrated to keep saturation greater than 90 in addition to IV Lasix. Repeat echo ordered for subsequent evaluation ?12/02/2019: Patient kidney function did worsen. Adjusted dose of Lasix switched from 60 mg IV every 6 to 40 mg p.o. twice daily. Patient was also seen in consultation by Dr. Vela nephrology, her notes and recommendations reviewed. 2. Acute cystitis Patient has allergies to multiple medications recent outpatient urinalysis with culture obtained came back positive for Pseudomonas. Patient was therefore started on meropenem repeat cultures sent 12/02/2019; patient remains on antibiotics cultures pending 3. Diabetes mellitus type 2 with complications including diabetic nephropathy ~ patient's oral hypoglycemics held. Placed on long acting insulin, Accu-Cheks a.c. and at bedtime and covered with sliding scale insulin 4. Chronic kidney disease stage III ~secondary to diabetic nephropathy kidney function appears to be at baseline consult was placed to patient's latin dance instructor Dr. Blanca Vela ?12/02/2019; kidney function did worsen as stated above Lasix dose subsequently adjusted 5. Coronary artery disease Status post PTCA/EDGARDO to mid LAD lesion in November 2016. Patient is currently on recommended medications 6. Rheumatoid arthritis ?Patient is on Plaquenil 7. Paroxysmal atrial fibrillation ?Patient presented with sinus rhythm 8. History of previous DVT ?Patient had elevated d-dimer on admission venous duplex obtained came back negative. VQ scan could not be completed since patient could not lay flat plan is for procedure to be repeated once patient CHF improves. Patient already has an IVC filter in place 9. Pulmonary hypertension ?Aerosol treatment as needed in addition to supplemental oxygen 9. Gout Symptoms controlled with allopurinol 10. Rheumatoid arthritis ?Symptoms controlled on Plaquenil in addition to patient being on prednisone 5 mg daily 11. Morbid obesity with BMI of 40 Weight loss advised 12. Bilateral lower extremity varicose veins ?With chronic venous insufficiency 13. Hypertension ~ blood pressure controlled, home medications continued with dose adjustment as needed 14. DVT prophylaxis ?Patient has an IVC filter was also placed on enoxaparin dose adjusted for kidney function Advance planning; did discuss with the patient regarding advanced directives as well as CODE STATUS. Did explain the various scenarios involved ( FULL CODE, DNR CCA, DNR CCA with no intubation, and DNR CC and what each meant) patient elected full code with CPR and intubation if warranted.. Order was placed. Time spent on discussion 16 minutes. Left ventricular systolic function is normal. The estimated ejection fraction is 60 %. The left atrium is moderately enlarged. There is mild mitral annular calcification. Extension the mitral annular calcification onto the base of the posterior mitral valve leaflet. Trivial mitral valve insufficiency. Mild tricuspid valve insufficiency. Mild aortic stenosis. Trivial aortic valve insufficiency. Right ventricular systolic pressure estimated to be 42 mmHg. Transmitral diastolic flow velocities suggest diastolic dysfunction (pseudonormal pattern). Code Visit Inpatient E&M: 77052 Subs Hosp L3
--- NOTE | 2019-12-02 09:40 | CASEMGMT ---
RN CM COMBAT SYSTEMS ENGINEER CM to room to meet with patient for initial transition planning/care coordination assessment. MAL BEY introduced self and role at [facility]. Pt voices understanding and consents to assessment at this time. Pt sitting up in recliner chair in no distress at this time. Pt is A/O at this time and answers all questions appropriately. Care providers, pharmacy, and demographics verified at this time. PCP: Sonja Feliciano BENCH ASSEMBLER OPERATOR Specialists: [facility], usually Thu or , Dr Vela--Nephrology, Dr Wiggins--rheumatology, Dr Piña--cardiology Preferred Pharmacy: [email or web address] Insurance: [employer] Prescription Benefit: Yes Living Will/HPOA: Has both LW and Healthcare POA, who is her daughter, More Stapleton. 1st alternative is Junior Stapleton. Copies of both LW and POA found on file @ [facility]. LNOK: Daughter, More. Son, Junior Living Arrangements: Lives in a ranch-style home w/11 steps w/rails to get to main floor. Pt states she takes the stairs slowly and one step at a time. Pt's daughter, More, lives with her. Pt states she is independent with ADL's and More is supportive and helps as needed. Transportation: Pt states drives self and states no transportation concerns at this time. More also drives and will be taking her home @ discharge. DME: States has the following DME: Cane, glucometer, hand-held shower. Uses a walker for longer distances. Does not have home O2. Pt states no need for further DME at this time. HHC/SNF: Hx of SNF in 2014 in [place] but does not remember the name of the facility. Hx [facility] in 2013. Discussed discharge planning. Pt denies need for HHC. Made aware PT/OT evals are pending. Pt states she is unsure at this time if she would want OP therapy or not. Discussed CCN. Pt declines referral at this time. Given CCN Rac card and pt made aware she can contact CCN in the future if she is interested. She voices understanding. Pt wishes to return home and states has no concerns with going home at time of discharge. CM to follow for home oxygen needs and any further discharge planning/needs. Pt voices no further concerns/needs at this time. Advised pt to ask for CM if any further questions/concerns/needs arise. Voices understanding. PLAN: Home w/family suppport and discharge plans in place. Follow for any O2 needs at discharge. PT/OT evals pending. Lele BSN RN CM
--- NOTE | 2019-12-02 10:43 | PN.RENAL_ITS ---
Patient Problems: Active and Suspected Problems (Last Reviewed 12/01/19 @ 12:07 by Jake Nesbitt MD) CHF (congestive heart failure) (Acute) Elevated d-dimer (Acute) Subjective: Breathing improved with IV Lasix. Diuresing well. Edema improved. Creatinine elevated at 1.9 today. Agree with switching IV Lasix to p.o. - Physical Exam Vitals/I&O's: Vital Signs Temp Pulse Resp BP Pulse Ox 98.4 F 86 14 151/78 H 92 12/02/19 09:00 12/02/19 09:00 12/02/19 09:00 12/02/19 09:00 12/02/19 10:36 Oxygen Flow Rate (L/min) [ 2 AMBULATION with Oxygen] Oxygen Flow Rate (L/min) 1 Oxygen Delivery Method Room Air Weight: 99.3 kg Body Mass Index (BMI) 40.0 Finger Stick Blood Glucose 139 Intake and Output for Last 24 Hours 11/30/19 12/01/19 12/02/19 23:59 23:59 23:59 Intake Total 720 / 720 180 / 180 Output Total 1100 / 1100 2049 Balance -380 / -380 -1870 / -1870 General: Alert, Oriented x3, Cooperative Lungs: Clear to auscultation Cardiovascular: Irregular Rate Abdomen: Bowel Sounds Present, Soft, Non Tender, Non-Distended, Obese Extremities: Edema - Bilateral lower extremity improving Skin: Ulcer/ Wound - Left pretibial area chronic, legs wrapped Psych/Mental Status: Normal Affect, Appropriate, Alert and oriented to time, place, person, mood and affect Laboratory Results 12/01/19 10:25: Troponin I < 0.015 12/01/19 12:20: POC Glucose 139 H 12/01/19 13:35: Troponin I 0.017 12/01/19 16:10: POC Glucose 93 12/01/19 21:15: POC Glucose 113 H 12/02/19 05:38: WBC 10.1, RBC 3.27 L, Hgb 8.7 L, Hct 28.6 L, MCV 87.5, MCH 26.6 L, MCHC 30.4 L, RDW Std Deviation 52.8 H, RDW Coeff of Raymond 16.6 H, Plt Count 235, MPV 9.6, Immature Gran % (Auto) 0.300, Neut % (Auto) 64.3, Lymph % (Auto) 22.3, [place] % (Auto) 6.6, Eos % (Auto) 5.9 H, Baso % (Auto) 0.6, Absolute Neuts (auto) 6.5, Absolute Lymphs (auto) 2.26, Nucleated RBC % 0 12/02/19 05:38: Sodium 141, Potassium 3.5, Chloride 105, Carbon Dioxide 30.0, Anion Gap 6, BUN 26 H, Creatinine 1.95 H, Estim Creat Clear Calc 20.32, Est GFR (MDRD) Af Amer 32 L, Est GFR (MDRD) Non-Af 27 L, BUN/Creatinine Ratio 13.3, Glucose 108 H, Calcium 8.7, Magnesium 1.8, TIBC 285, Ferritin 47 12/02/19 05:38: PTH Intact 207.8 H 12/02/19 06:45: POC Glucose 108 Current Medications Acetaminophen (Tylenol) 650 mg PO Q6H PRN PRN PRN Reason: Pain Score 1-3/Temp > 100.7 F Al Hydroxide/Mg Hydroxide (Mylanta Ii) 30 ml PO Q6H PRN PRN PRN Reason: Gastric Burning Albuterol Sulfate (Ventolin Aerosols) 2.5 mg INHALATION Q2H PRN PRN PRN Reason: SOB/Wheezing Allopurinol (Zyloprim) 300 mg PO DAILY@0800 [facility] Last Admin: 12/02/19 08:47 Dose: 300 mg Documented by: Amlodipine Besylate (Norvasc) 5 mg PO BID [facility] Last Admin: 12/02/19 08:48 Dose: 5 mg Documented by: Aspirin (Aspirin, Baby) 81 mg PO DAILY@0800 [facility] Last Admin: 12/02/19 08:47 Dose: 81 mg Documented by: Atorvastatin Calcium (Lipitor) 10 mg PO QHS [facility] Last Admin: 12/01/19 21:27 Dose: 10 mg Documented by: Enoxaparin Sodium (Lovenox) 30 mg SC DAILY [facility] Last Admin: 12/02/19 08:47 Dose: 30 mg Documented by: Ergocalciferol (Vitamin D) 50,000 unit PO WeSa@1000 [facility] Furosemide (Lasix) 40 mg PO BID@1000,1800 [facility] Glucagon () 1 mg IM .X1 PRN PRN Reason: Hypoglycemia Guaifenesin (Robitussin) 20 ml PO Q4H PRN PRN PRN Reason: COUGH Hydroxychloroquine Sulfate (Plaquenil) 200 mg PO BIDCM [facility] Last Admin: 12/02/19 08:47 Dose: 200 mg Documented by: Dextrose (Dextrose 10%-Water) 250 mls @ 999 mls/hr IV .Q16M PRN; Protocol PRN Reason: HYPOGLYCEMIA Meropenem 500 mg/ Sodium (Chloride) 60 mls @ 100 mls/hr IV Q12 [facility] Last Infusion: 12/02/19 10:02 Dose: Infused Documented by: Insulin Glargine (Lantus (Bk)) 10 units SC QHS [facility] Last Admin: 12/01/19 21:37 Dose: 10 u Documented by: Insulin Human Lispro (Humalog Kwikpen ([facility])) 0 unit SC ACHS [facility]; Protocol Last Admin: 12/02/19 06:47 Dose: Not Given Documented by: Magnesium Hydroxide (Milk Of Magnesia) 30 ml PO DAILY PRN PRN PRN Reason: Constipation Melatonin (Melatonin) 3 mg PO QHS PRN PRN PRN Reason: INSOMNIA Nitroglycerin (Nitrostat) 0.4 mg SUBLINGUAL Q5M PRN PRN Reason: CARDIAC/CHEST PAIN Nystatin (Mycostatin Powder) 1 applic TOPICAL BID [facility]; Protocol Last Admin: 12/02/19 08:47 Dose: 1 applicatio Documented by: Oxycodone HCl (Oxyir) 5 mg PO Q4H PRN PRN PRN Reason: Pain Score 4-5/10 Oxycodone HCl (Oxyir) 10 mg PO Q4H PRN PRN PRN Reason: Pain Score 6-10/10 Prednisone () 2.5 mg PO DAILY@0800 [facility] Last Admin: 12/02/19 08:47 Dose: 2.5 mg Documented by: Promethazine HCl (Phenergan) 25 mg IM Q6H PRN PRN PRN Reason: Breakthrough Nausea/Vomiting Last Admin: 12/01/19 16:50 Dose: 25 mg Documented by: Sodium Chloride () 10 - 40 ml IV UD PRN PRN Reason: SALINE FLUSH Last Admin: 12/02/19 08:46 Dose: 10 ml Documented by: Medical Necessity - Tobacco Use Smoking Status: Never smoker Assessment/Plan All Active Problems (Last Reviewed 12/01/19 @ 12:07 by Jake Nesbitt MD) CHF (congestive heart failure) (Acute) Elevated d-dimer (Acute) UTI (urinary tract infection) (Acute) Gastroenteritis (Resolved) Acute cystitis (Acute) Cellulitis (Resolved) Sepsis (Resolved) DILCIA (acute kidney injury) (Resolved) Afib (Resolved) Chronic ulcer of left leg with fat layer exposed (Resolved) DVT (deep venous thrombosis) (Resolved) Nonhealing ulcer of left lower extremity with fat layer exposed (Resolved) Pulmonary emboli (Resolved) Severe sepsis (Resolved) UTI (urinary tract infection) (Resolved) Venous stasis ulcer of leg without varicose veins (Resolved) Wound abscess (Resolved) Chronic articular rheumatism (Ruled-out) Chronic foot ulcer (Ruled-out) Pyoderma gangrenosum (Ruled-out) 1. CKD stage 4 with creatinine elevation at 1.95 today from IV Lasix therapy. Agree with switching IV Lasix to oral. Check 24h urine, PTH, vit D. Failed to f/u in 2018 and this week. Advised to call the office for follow-up appointment in 1 to 2 weeks on discharge. 2. Pulmonary edema, fluid retention improved off oxygen. Continue po lasix. 3. Dm2 primary service mgmt 4. HTN stable 5. Mild pulmonary hypertension. 6. Anemia iron def. iv venofer, epo sc x1 today
[2019-12-02] MEDS: Furosemide 40 MG Tablet PO ×2 (10:54→17:16)
[2019-12-02 11:01] LABS: Bedside Glucose 131 mg/dL (70-110)
--- NOTE | 2019-12-02 11:14 | CASEMGMT ---
Pt does qualify for home oxygen at this time. This RN CM to room to discuss DME company with pt and verbal list of in-network DME companies provided to pt at this time. Pt would like [facility] at this time. Pt declines need for Outpt therapy at discharge at this time. Green sheet on chart of possible home oxygen need at this time. [place]en MAL CM
[2019-12-02] MEDS: Epoetin Alfa epbx 10,000 UNITS/ML 10000 UNIT SC (12:21)
[2019-12-02 13:02] LABS: Iron 26 ug/dL (50-170)
[2019-12-02 16:45] LABS: Bedside Glucose 191 mg/dL (70-110)
[2019-12-02] MEDS: Insulin Lispro 100 UNIT/ML INSULN.PEN SC (17:16)
[2019-12-02] MEDS: Atorvastatin Calcium 10 MG Tablet PO (21:58)
[2019-12-03 00:06] LABS: Bedside Glucose 135 mg/dL (70-110)
[2019-12-03 03:00] VITALS: PULSE 89
[2019-12-03 03:10] VITALS: BP 151/64; PULSE 93; RESP 18; TEMP 37.2; O2SAT 94
[2019-12-03 07:00] VITALS: PULSE 83
[2019-12-03 07:01] LABS: Bedside Glucose 104 mg/dL (70-110)
[2019-12-03 07:50] LABS: Anion Gap 6 (5-15); BUN 28 mg/dL (7-18); BUN/Creat Ratio 13.5 RATIO (10-20); Calcium,Total 8.8 mg/dL (8.5-10.1); Chloride 103 mmol/L (98-107); Creatinine, Serum 2.08 mg/dL (0.55-1.02); EST Glomerular Filtration Rate 25 mL/min (>60); Est Glom Filt Rate - Afr Amer 30 mL/min (>60); Estimated Creatinine Clearance 19.05 ml/min; Glucose 96 mg/dL (74-106); Potassium 3.3 mmol/L (3.5-5.1); Sodium Level 141 mmol/L (136-145)
[2019-12-03] MEDS: Aspirin 81 MG TAB.CHEW PO (07:56)
[2019-12-03] MEDS: Hydroxychloroquine 200 MG Tablet PO (07:56)
[2019-12-03] MEDS: Allopurinol 300 MG Tablet PO (07:57)
[2019-12-03] MEDS: Nystatin Powder 15gm Bottle 1 APPLIC TOPICAL (07:57)
[2019-12-03] MEDS: Enoxaparin 30 MG/0.3 ML Syringe SC (07:57)
[2019-12-03] MEDS: Furosemide 40 MG Tablet PO (07:57)
[2019-12-03] MEDS: predniSONE 5 MG Tablet 2.5 MG PO (07:57)
[2019-12-03] MEDS: amLODIPine 5 MG Tablet PO (07:58)
[2019-12-03 08:00] VITALS: BP 166/85; PULSE 84; RESP 16; TEMP 36.7; O2SAT 95
[2019-12-03 08:02] VITALS: O2SAT 94
--- NOTE | 2019-12-03 09:03 | DCINST_ITS ---
- Discharge Diagnoses Current Active Problems: Current Active and Chronic Problems (Last Reviewed 12/01/19 @ 12:07 by Jake Nesbitt MD) CHF (congestive heart failure) (Acute) Elevated d-dimer (Acute) You will use the following diet at home:: Calorie/Carbohydrate Controlled (specify 1200, 1400, etc) - 1800, Fluid restricted (specify 2000 mls, 1500 mls) - 2000, Renal (restricted protein/sodium) Your food should be the consistency of: Regular Discharge Activity: Return to Normal Activity Allergies/Adverse Reactions: Allergies cefepime HCl [From Maxipime] Allergy (Verified 12/01/19 06:55) Itching cephalexin monohydrate [From Keflex] Allergy (Verified 12/01/19 06:55) Hives clopidogrel [From Plavix] Allergy (Verified 12/01/19 06:55) Itching and hives all over ciprofloxacin [From Cipro] Adverse Reaction (Verified 12/01/19 06:55) Itching hydromorphone HCl [From Dilaudid] Adverse Reaction (Verified 12/01/19 06:55) Itching piperacillin [From Zosyn] Adverse Reaction (Verified 12/01/19 06:55) Hives tazobactam [From Zosyn] Adverse Reaction (Verified 12/01/19 06:55) Hives Medications to take at Discharge Allopurinol 300 mg PO DAILY 10/16/18 Aspirin [Aspirin, Baby] 81 mg PO DAILY@0800 10/16/18 Ergocalciferol (Vitamin D2) [Drisdol] 50,000 unit PO [facility] 10/16/18 Hydroxychloroquine [Plaquenil] 200 mg PO BIDCM 10/16/18 Insulin Glargine,Hum.rec.anlog [Lantus] 10 unit SQ QHS 10/16/18 prednisone 5 mg tablet 2.5 mg PO DAILY tab 09/05/19 simvastatin 40 mg tablet 20 mg PO QHS tab 09/05/19 amlodipine 10 mg tablet 5 mg PO BID #30 tab 11/09/19 Furosemide [Lasix] 40 mg PO DAILY #60 tab 12/03/19 The following prescriptions were given: Furosemide [Lasix] 40 mg PO DAILY #60 tab Transmission Status: Pending to [facility] Primary Care Physician: Ciesa,Sonja, APPLIANCE ADJUSTER-C [Primary Care Provider] - Test Results: Test results from this visit will be discussed in further detail at your follow- up appointment, if applicable. Please Follow Up With: Sonja Feliciano NP-C Proposed Discharge Date: 12/03/19
--- NOTE | 2019-12-03 09:07 | DS.PCM_ITS ---
Discharge Date and Diagnosis - Problem List Patient Problems: Active and Suspected Problems (Last Reviewed 12/01/19 @ 12:07 by Jake Nesbitt MD) CHF (congestive heart failure) (Acute) Elevated d-dimer (Acute) Date of Admission: 12/01/19 Date of Discharge: 12/03/19 - Primary Discharge Diagnosis Active and Suspected Problems (Last Reviewed 12/01/19 @ 12:07 by Jake Nesbitt MD) CHF (congestive heart failure) (Acute) Elevated d-dimer (Acute) - Secondary Discharge Diagnosis Chronic Problems (Last Reviewed 12/01/19 @ 12:07 by Jake Nesbitt MD) Venous insufficiency of both lower extremities (Chronic) Wound of right lower extremity (Chronic) Traumatic, penetrating with fat layer exposed. Ulcer of right lower extremity with fat layer exposed (Chronic) Essential hypertension (Chronic) Debility (Chronic) Premature atrial contractions (Chronic) Premature ventricular contraction (Chronic) Atherosclerotic heart disease of [place] coronary artery without angina pectoris (Chronic) Varicose veins of both lower extremities (Chronic) Chronic renal failure, stage 4 (severe) (Chronic) Chronic steroid use (Chronic) Morbid obesity with BMI of 45.0-49.9, adult (Chronic) Osteopenia (Chronic) Pulmonary hypertension (Chronic) Personal history of DVT (deep vein thrombosis) (Chronic) Presence of IVC filter (Chronic) Ulcer of left lower extremity with fat layer exposed (Chronic) mixed venous arterial left posterior calf Lymphedema (Chronic) PVD (peripheral vascular disease) (Chronic) Paroxysmal atrial fibrillation (Chronic) S/P angioplasty with stent (Chronic ~12/05/16) EDGARDO to mid LAD 12/05/2016 DM2 (diabetes mellitus, type 2) (Chronic) Dyslipidemia (Chronic) Depression (Chronic) Gout (Chronic) 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) Hospital Course and Treatment Imaging Results: 2D echo Left ventricular systolic function is normal. The estimated ejection fraction is 60 %. The left atrium is moderately enlarged. There is mild mitral annular calcification. Extension the mitral annular calcification onto the base of the posterior mitral valve leaflet. Trivial mitral valve insufficiency. Mild tricuspid valve insufficiency. Mild aortic stenosis. Trivial aortic valve insufficiency. Right ventricular systolic pressure estimated to be 42 mmHg. Transmitral diastolic flow velocities suggest diastolic dysfunction (pseudonormal pattern). Clinical Impression(s) from Imaging Studies Chest X-Ray 12/01/19 07:08 IMPRESSION: CHF with pulmonary edema. Bilateral hilar prominence is probably on a vascular basis. Overlying perihilar mass or lymphadenopathy cannot be excluded. Follow-up is advised. Electronically Signed: Omar Fragoso MD at 7:51 EST , Service support , Consultations 12/01/19 10:07 Consult: Onc/Wound/vocational trainer Routine Comment: Reason for Consult:: left lower extremity wounds Comments:: sees wound clinic as outpt for leg Operations: None Summary of Care Provided: 74-year-old lady with multiple comorbidities including known congestive heart failure with preserved ejection fraction who presented with progressive shortness of breath with bilateral edema. She was also found to have abdominal discomfort and assessment of CHF, acute cystitis made admitted to monitored bed for further management 1. Acute on chronic congestive heart failure with preserved ejection fraction ?Admitted to monitored bed placed on strict input and output, daily weights, low-sodium diet, fluid restriction, supplemental oxygen titrated to keep saturation greater than 90 in addition to IV Lasix. Repeat echo ordered for subsequent evaluation ?12/02/2019: Patient kidney function did worsen. Adjusted dose of Lasix switched from 60 mg IV every 6 to 40 mg p.o. twice daily. Patient was also seen in consultation by Dr. Vela nephrology, her notes and recommendations reviewed. ?12/03/2019 echo obtained demonstrated EF of 60%. Patient was discharged with Lasix 40 mg daily 2. Acute cystitis ruled out. Patient colony counts was not clinically significant meropenem which had been initiated on admission subsequently discontinued 3. Diabetes mellitus type 2 with complications including diabetic nephropathy ~ patient's oral hypoglycemics held. Placed on long acting insulin, Accu-Cheks a.c. and at bedtime and covered with sliding scale insulin 4. Chronic kidney disease stage III ~secondary to diabetic nephropathy kidney function appears to be at baseline consult was placed to patient's recruitment coordinator Dr. Blanca Vela ?12/02/2019; kidney function did worsen as stated above Lasix dose subsequently adjusted 5. Coronary artery disease Status post PTCA/EDGARDO to mid LAD lesion in November 2016. Patient is currently on recommended medications 6. Rheumatoid arthritis ?Patient is on Plaquenil 7. Paroxysmal atrial fibrillation ?Patient presented with sinus rhythm 8. History of previous DVT ?Patient had elevated d-dimer on admission venous duplex obtained came back negative. VQ scan could not be completed since patient could not lay flat plan is for procedure to be repeated once patient CHF improves. Patient already has an IVC filter in place 9. Pulmonary hypertension ?Aerosol treatment as needed in addition to supplemental oxygen 9. Gout Symptoms controlled with allopurinol 10. Rheumatoid arthritis ?Symptoms controlled on Plaquenil in addition to patient being on prednisone 5 mg daily 11. Morbid obesity with BMI of 40 Weight loss advised 12. Bilateral lower extremity varicose veins ?With chronic venous insufficiency 13. Hypertension ~ blood pressure controlled, home medications continued with dose adjustment as needed 14. DVT prophylaxis ?Patient has an IVC filter was also placed on enoxaparin dose adjusted for kidney function Patient Problems: Active and Suspected Problems (Last Reviewed 12/01/19 @ 12:07 by Jake Nesbitt MD) CHF (congestive heart failure) (Acute) Elevated d-dimer (Acute) Objective: GENERAL: Flat affect HEENT: Atraumatic; EYES; Anicteric, Normal Conjunctiva NECK; supple, normal thyroid, RESPIRATORY: Diminished to auscultation CARDIOVASCULAR: Regular S1 S2, GI: soft, normoactive bowel sounds, NEURO: Awake; no lateralizing signs. SKIN: No Rash PSYCH; Flat affect - Physical Exam Vitals/I&O's: Vital Signs Temp Pulse Resp BP Pulse Ox 98.9 F 83 18 151/64 H 94 12/03/19 03:10 12/03/19 07:00 12/03/19 03:10 12/03/19 03:10 12/03/19 08:02 Oxygen Flow Rate (L/min) [ 2 AMBULATION with Oxygen] Oxygen Flow Rate (L/min) 2 Oxygen Delivery Method Room Air Weight: 93.3 kg Body Mass Index (BMI) 40.0 Finger Stick Blood Glucose 139 Intake and Output for Last 24 Hours 12/01/19 12/02/19 12/03/19 23:59 23:59 23:59 Intake Total 720 / 720 1495 / 1615 120 / 120 Output Total 1100 / 1100 3850 / 4750 1300 / 1300 Balance -380 / -380 -2355 / -3135 -1180 / -1180 Microbiology Past 72 Hours 12/01/19 07:35 Urine Catheter - Catheter Urine Culture - Final Streptococcus agalactiae (B) Laboratory Results 12/02/19 05:38: Iron 26 L 12/02/19 10:54: POC Glucose 131 H 12/02/19 16:22: POC Glucose 191 H 12/02/19 21:55: POC Glucose 135 H 12/03/19 05:33: Sodium 141, Potassium 3.3 L, Chloride 103, Carbon Dioxide 32.0, Anion Gap 6, BUN 28 H, Creatinine 2.08 H, Estim Creat Clear Calc 19.05, Est GFR (MDRD) Af Amer 30 L, Est GFR (MDRD) Non-Af 25 L, BUN/Creatinine Ratio 13.5, Glucose 96, Calcium 8.8 12/03/19 06:32: POC Glucose 104 Current Medications Acetaminophen (Tylenol) 650 mg PO Q6H PRN PRN PRN Reason: Pain Score 1-3/Temp > 100.7 F Al Hydroxide/Mg Hydroxide (Mylanta Ii) 30 ml PO Q6H PRN PRN PRN Reason: Gastric Burning Albuterol Sulfate (Ventolin Aerosols) 2.5 mg INHALATION Q2H PRN PRN PRN Reason: SOB/Wheezing Allopurinol (Zyloprim) 300 mg PO DAILY@0800 [facility] Last Admin: 12/03/19 07:57 Dose: 300 mg Documented by: Amlodipine Besylate (Norvasc) 5 mg PO BID [facility] Last Admin: 12/03/19 07:58 Dose: 5 mg Documented by: Aspirin (Aspirin, Baby) 81 mg PO DAILY@0800 [facility] Last Admin: 12/03/19 07:56 Dose: 81 mg Documented by: Atorvastatin Calcium (Lipitor) 10 mg PO QHS [facility] Last Admin: 12/02/19 21:58 Dose: 10 mg Documented by: Enoxaparin Sodium (Lovenox) 30 mg SC DAILY [facility] Last Admin: 12/03/19 07:57 Dose: 30 mg Documented by: Ergocalciferol (Vitamin D) 50,000 unit PO WeSa@1000 [facility] Last Admin: 12/03/19 07:58 Dose: 50,000 unit Documented by: Furosemide (Lasix) 40 mg PO BID@1000,1800 [facility] Last Admin: 12/03/19 07:57 Dose: 40 mg Documented by: Glucagon () 1 mg IM .X1 PRN PRN Reason: Hypoglycemia Guaifenesin (Robitussin) 20 ml PO Q4H PRN PRN PRN Reason: COUGH Hydroxychloroquine [facility] ([facility]) [facility] Last Admin: 12/03/19 07:56 Dose: 200 mg Documented by: Dextrose (Dextrose 10%-Water) 250 mls @ 999 mls/hr IV .Q16M PRN; Protocol PRN Reason: HYPOGLYCEMIA Insulin Glargine (Lantus ([facility])) 10 units SC QHS [facility] Last Admin: 12/02/19 21:59 Dose: 10 u Documented by: Insulin Human Lispro (Humalog Kwikpen ([facility])) [facility]; Protocol Last Admin: 12/03/19 06:33 Dose: Not Given Documented by: Magnesium Hydroxide (Milk Of Magnesia) 30 ml PO DAILY PRN PRN PRN Reason: Constipation Melatonin (Melatonin) 3 mg PO QHS PRN PRN PRN Reason: INSOMNIA Nitroglycerin (Nitrostat) 0.4 mg SUBLINGUAL Q5M PRN PRN Reason: CARDIAC/CHEST PAIN Nystatin (Mycostatin Powder) 1 applic TOPICAL BID [facility]; Protocol Last Admin: 12/03/19 07:57 Dose: 1 applicatio Documented by: Oxycodone HCl (Oxyir) 5 mg PO Q4H PRN PRN PRN Reason: Pain Score 4-5/10 Oxycodone HCl (Oxyir) 10 mg PO Q4H PRN PRN PRN Reason: Pain Score 6-10/10 Prednisone () 2.5 mg PO DAILY@0800 [facility] Last Admin: 12/03/19 07:57 Dose: 2.5 mg Documented by: Promethazine HCl (Phenergan) 25 mg IM Q6H PRN PRN PRN Reason: Breakthrough Nausea/Vomiting Last Admin: 12/01/19 16:50 Dose: 25 mg Documented by: Sodium Chloride () 10 - 40 ml IV UD PRN PRN Reason: SALINE FLUSH Last Admin: 12/02/19 12:21 Dose: 10 ml Documented by: Discharge Diet: 1800 Calorie Control Diet, 8 Cup Fluid Restriciton, 2000 mg Sodium Diet, Renal Diet Discharge Activity: Return to Normal Activity Home Medications: Medications to take at Discharge Allopurinol 300 mg PO DAILY 10/16/18 Aspirin [Aspirin, Baby] 81 mg PO DAILY@0800 10/16/18 Ergocalciferol (Vitamin D2) [Drisdol] 50,000 unit PO [facility] 10/16/18 Hydroxychloroquine [Plaquenil] 200 mg PO BIDCM 10/16/18 Insulin Glargine,Hum.rec.anlog [Lantus] 10 unit SQ QHS 10/16/18 prednisone 5 mg tablet 2.5 mg PO DAILY tab 09/05/19 simvastatin 40 mg tablet 20 mg PO QHS tab 09/05/19 amlodipine 10 mg tablet 5 mg PO BID #30 tab 11/09/19 Furosemide [Lasix] 40 mg PO DAILY #60 tab 12/03/19 Following Prescrptions Were Given to Patient: Furosemide [Lasix] 40 mg PO DAILY #60 tab Transmission Status: Pending to [facility] Primary Care Physician: Sonja Feliciano NP-C [Primary Care Provider] - Please follow up with your Primary Care Physician in: in 5-7 days Please Follow Up With: Sonja Feliciano NP-C Please Follow Up With: Blanca Vela DO When: in 1-2 weeks Disposition: Home Minutes spent on discharge:: 35 Patient Condition:: Stable Medical Necessity - Tobacco Use Smoking Status: Never smoker Meaningful Use Info Meaningful Use Diagnoses (Choose all that apply): None applicable - CHF KVNG/ARB ordered at discharge?: No Reason KVNG/ARB not ordered?: Worsening renal disease Documented LVEF (%): 60 Code Visit Inpatient E&M: 14410 Disch Hosp
[2019-12-03] MEDS: proMETHazine 25 MG/ML Syringe IM (10:24)
[2019-12-03] MEDS: 0.9% Saline Lock 10 ML Syringe IV (10:24)
[2019-12-03] MEDS: Insulin Lispro 100 UNIT/ML INSULN.PEN SC (11:09)
[2019-12-03 11:15] LABS: Bedside Glucose 160 mg/dL (70-110)
[2019-12-03 13:20] VITALS: BP 159/66; PULSE 95; RESP 14; TEMP 36.8; O2SAT 95
--- NOTE | 2019-12-03 13:21 | PN.RENAL_ITS ---
Patient Problems: Active and Suspected Problems (Last Reviewed 12/01/19 @ 12:07 by Jake Nesbitt MD) CHF (congestive heart failure) (Acute) Elevated d-dimer (Acute) Subjective: Shortness of breath and lower extremity edema improved. Creatinine stable unchanged at 2.0 today. She had a good diuresis with IV Lasix. We will reduce her Lasix 40 mg twice a day down to once a day. 24-hour urine for creatinine clearance and total protein in progress. Discussed dialysis education as an outpatient - Physical Exam Vitals/I&O's: Vital Signs Temp Pulse Resp BP Pulse Ox 98.3 F 95 14 159/66 H 95 12/03/19 13:20 12/03/19 13:20 12/03/19 13:20 12/03/19 13:20 12/03/19 13:20 Oxygen Flow Rate (L/min) [ 2 AMBULATION with Oxygen] Oxygen Flow Rate (L/min) 2 Oxygen Delivery Method Room Air Weight: 93.3 kg Body Mass Index (BMI) 40.0 Finger Stick Blood Glucose 139 Intake and Output for Last 24 Hours 12/01/19 12/02/19 12/03/19 23:59 23:59 23:59 Intake Total 720 / 720 1495 / 1615 770 / 770 Output Total 1100 / 1100 3850 / 4750 2400 / 2400 Balance -380 / -380 -2355 / -3135 -1630 / -1630 General: Alert, Oriented x3, Cooperative Lungs: Clear to auscultation Cardiovascular: Irregular Rate - Atrial fibrillation Abdomen: Bowel Sounds Present, Soft, Non Tender, Non-Distended Extremities: No edema Psych/Mental Status: Normal Affect, Appropriate, Alert and oriented to time, place, person, mood and affect Microbiology Past 72 Hours 12/01/19 07:35 Urine Catheter - Catheter Urine Culture - Final Streptococcus agalactiae (B) Laboratory Results 12/02/19 16:22: POC Glucose 191 H 12/02/19 21:55: POC Glucose 135 H 12/03/19 05:33: Sodium 141, Potassium 3.3 L, Chloride 103, Carbon Dioxide 32.0, Anion Gap 6, BUN 28 H, Creatinine 2.08 H, Estim Creat Clear Calc 19.05, Est GFR (MDRD) Af Amer 30 L, Est GFR (MDRD) Non-Af 25 L, BUN/Creatinine Ratio 13.5, Glucose 96, Calcium 8.8 12/03/19 06:32: POC Glucose 104 12/03/19 11:08: POC Glucose 160 H Current Medications Acetaminophen (Tylenol) 650 mg PO Q6H PRN PRN PRN Reason: Pain Score 1-3/Temp > 100.7 F Al Hydroxide/Mg Hydroxide (Mylanta Ii) 30 ml PO Q6H PRN PRN PRN Reason: Gastric Burning Albuterol Sulfate (Ventolin Aerosols) 2.5 mg INHALATION Q2H PRN PRN PRN Reason: SOB/Wheezing Allopurinol (Zyloprim) 300 mg PO DAILY@0800 [facility] Last Admin: 12/03/19 07:57 Dose: 300 mg Documented by: Amlodipine Besylate (Norvasc) 5 mg PO BID [facility] Last Admin: 12/03/19 07:58 Dose: 5 mg Documented by: Aspirin (Aspirin, Baby) 81 mg PO DAILY@0800 [facility] Last Admin: 12/03/19 07:56 Dose: 81 mg Documented by: Atorvastatin Calcium (Lipitor) 10 mg PO QHS [facility] Last Admin: 12/02/19 21:58 Dose: 10 mg Documented by: Enoxaparin Sodium (Lovenox) 30 mg SC DAILY [facility] Last Admin: 12/03/19 07:57 Dose: 30 mg Documented by: Ergocalciferol (Vitamin D) 50,000 unit PO WeSa@1000 [facility] Last Admin: 12/03/19 07:58 Dose: 50,000 unit Documented by: Furosemide (Lasix) 40 mg PO DAILY [facility] Last Admin: 12/03/19 12:37 Dose: Not Given Documented by: Glucagon () 1 mg IM .X1 PRN PRN Reason: Hypoglycemia Guaifenesin (Robitussin) 20 ml PO Q4H PRN PRN PRN Reason: COUGH [facility]xychloroquine [facility] ([facility]) [facility] Admin: 12/03/19 07:56 Dose: 200 mg Documented by: Dextrose (Dextrose 10%-Water) 250 mls @ 999 mls/hr IV .Q16M PRN; Protocol PRN Reason: HYPOGLYCEMIA Insulin Glargine (Lantus (Bkc)) 10 units SC QHS [facility] Last Admin: 12/02/19 21:59 Dose: 10 u Documented by: Insulin Human Lispro (Humalog Kwikpen (Bkc)) 0 unit SC ACHS [facility]; Protocol Last Admin: 12/03/19 11:09 Dose: 2 units Documented by: Magnesium Hydroxide (Milk Of Magnesia) 30 ml PO DAILY PRN PRN PRN Reason: Constipation Melatonin (Melatonin) 3 mg PO QHS PRN PRN PRN Reason: INSOMNIA Nitroglycerin (Nitrostat) 0.4 mg SUBLINGUAL Q5M PRN PRN Reason: CARDIAC/CHEST PAIN Nystatin (Mycostatin Powder) 1 applic TOPICAL BID [facility]; Protocol Last Admin: 12/03/19 07:57 Dose: 1 applicatio Documented by: Oxycodone HCl (Oxyir) 5 mg PO Q4H PRN PRN PRN Reason: Pain Score 4-5/10 Oxycodone HCl (Oxyir) 10 mg PO Q4H PRN PRN PRN Reason: Pain Score 6-10/10 Prednisone () 2.5 mg PO DAILY@0800 [facility] Last Admin: 12/03/19 07:57 Dose: 2.5 mg Documented by: Promethazine HCl (Phenergan) 25 mg IM Q6H PRN PRN PRN Reason: Breakthrough Nausea/Vomiting Last Admin: 12/03/19 10:24 Dose: 25 mg Documented by: Sodium Chloride () 10 - 40 ml IV UD PRN PRN Reason: SALINE FLUSH Last Admin: 12/03/19 10:24 Dose: 10 ml Documented by: Medical Necessity - Tobacco Use Smoking Status: Never smoker Assessment/Plan All Active Problems (Last Reviewed 12/01/19 @ 12:07 by Jake Nesbitt MD) CHF (congestive heart failure) (Acute) Elevated d-dimer (Acute) UTI (urinary tract infection) (Acute) Gastroenteritis (Resolved) Acute cystitis (Acute) Cellulitis (Resolved) Sepsis (Resolved) DILCIA (acute kidney injury) (Resolved) Afib (Resolved) Chronic ulcer of left leg with fat layer exposed (Resolved) DVT (deep venous thrombosis) (Resolved) Nonhealing ulcer of left lower extremity with fat layer exposed (Resolved) Pulmonary emboli (Resolved) Severe sepsis (Resolved) UTI (urinary tract infection) (Resolved) Venous stasis ulcer of leg without varicose veins (Resolved) Wound abscess (Resolved) Chronic articular rheumatism (Ruled-out) Chronic foot ulcer (Ruled-out) Pyoderma gangrenosum (Ruled-out) 1. CKD stage 4 with creatinine unchanged at 2.0 on oral Lasix twice a day. We will cut back Lasix to 40 mg once a day and to continue at home on discharge. Await 24-hour urine collection. Follow-up in office in 1 to 2 weeks. Discussed dialysis education. 2. Pulmonary edema, fluid retention improved off oxygen. Continue po lasix. Changed to once a day 3. Dm2 primary service mgmt 4. HTN stable 5. Mild pulmonary hypertension. 6. Anemia iron def. iv venofer, epo sc x1 yesterday.
[2019-12-03 17:12] LABS: Creat.Clear Total Volume 2000 mL; Creatinine Clearance 22 ml/min (100-200); Creatinine Serum Creat 2.1 mg/dL (0.6-1.0); Creatinine Urine 32.5 mg/dL (NO RANGE EST.); EST Glomerular Filtration Rate 25 mL/min (>60); Est Glom Filt Rate - Afr Amer 30 mL/min (>60)
[2019-12-03 17:13] LABS: 24HR. UA Prot. Total Volume 2000 mL; Urine Protein (24 Hour) 54.8 mg/dL (<11.9)
--- NOTE | 2019-12-05 13:22 | CASEMGMT ---
MAL BEY DC PHONE CALL DC DATE: CHF DC Disposition: Home Diagnosis on Discharge: CHF LACE/STRATA: 09/01 Intro role of CM to patient via phone. Pt states she is doing very well, no questions re: dc instructions, medications or f/u. Pt is aware she has appt with [facility] tomorrow. MAL BEY thanked her for using [facility]. No care improvement suggestions given. Fanny NORIEGA RN ACM
== END 2019-12-03 15:12 | disposition home or self-care (01) | DRG 291 ==
LOC: ED 07:20 → PCU 08:49
PROVIDERS: Internal Medicine Nephrology; Admitting Provider Internal Medicine; Emergency Provider Emergency Medicine; Family Provider Nurse Practitioner; PCP Nurse Practitioner; Visit Provider Internal Medicine
DX: I13.0 Hypertensive heart and chronic kidney disease with heart failure and stage 1 through stage 4 chronic kidney disease, or unspecified chronic kidney disease (principal); I50.33 Acute on chronic diastolic (congestive) heart failure; Z68.41 Body mass index [BMI] 40.0-44.9, adult; I87.2 Venous insufficiency (chronic) (peripheral); E66.01 Morbid (severe) obesity due to excess calories; M06.9 Rheumatoid arthritis, unspecified; M10.9 Gout, unspecified; I27.20 Pulmonary hypertension, unspecified; I48.0 Paroxysmal atrial fibrillation; E11.22 Type 2 diabetes mellitus with diabetic chronic kidney disease; I25.10 Atherosclerotic heart disease of native coronary artery without angina pectoris; D50.9 Iron deficiency anemia, unspecified; Z95.5 Presence of coronary angioplasty implant and graft; Z95.828 Presence of other vascular implants and grafts; Z86.718 Personal history of other venous thrombosis and embolism; N18.3 Chronic kidney disease, stage 3 (moderate); Z79.899 Other long term (current) drug therapy; Z79.52 Long term (current) use of systemic steroids; Z79.4 Long term (current) use of insulin
CPT/HCPCS: 36415; 71045; 80048; 81001; 81050; 82575; 82728; 82962; 83540; 83550; 83735; 83970; 84156; 84484; 85025; 85379; 87077; 87086; 87088; 87186; 93005; 93306; 93970; 97162; 97166; 99251; 99285; J1756; J2185; J7050; Q9957; A4216; G0463; J1940; Q5106

== ENCOUNTER → 2019-12-06 15:18 | Outpatient (CLI) | payer MEDICARE, SELFPAY ==
[2016-12-05 15:47] VITALS: BMI 35.6
[2019-12-01 09:05] VITALS: BMI 40.0
[2019-12-06 15:52] LABS: Albumin, Serum 3.5 g/dL (3.2-5.0); BUN 34 mg/dL (7-18); BUN/Creat Ratio 15.5 RATIO (10-20); Calcium,Total 8.9 mg/dL (8.5-10.1); Chloride 103 mmol/L (98-107); Creatinine, Serum 2.19 mg/dL (0.55-1.02); EST Glomerular Filtration Rate 23 mL/min (>60); Est Glom Filt Rate - Afr Amer 28 mL/min (>60); Glucose 99 mg/dL (74-106); Phosphorus 4.5 mg/dL (2.5-4.9); Potassium 3.9 mmol/L (3.5-5.1); Sodium Level 140 mmol/L (136-145)
[2019-12-06 16:02] LABS: BNP,B-Type NATRIURETIC PEPTIDE 121.7 pg/mL (0-100)
== END ==
PROVIDERS: Family Provider Nurse Practitioner; PCP Nurse Practitioner; Referring Provider Nurse Practitioner; Visit Provider Nurse Practitioner
DX: I50.9 Heart failure, unspecified (principal)
CPT/HCPCS: 80069; 83880

== ENCOUNTER → 2019-12-26 | Outpatient (CLI) | payer MEDICARE, SELFPAY ==
[2016-12-05 15:47] VITALS: BMI 35.6
[2019-12-22 14:13] VITALS: BMI 40.0
== END | disposition home or self-care (01) ==
PROVIDERS: PCP Nurse Practitioner; Referring Provider Urology; Visit Provider Urology
DX: N39.0 Urinary tract infection, site not specified (principal)
CPT/HCPCS: 87077; 87086; 87088; 87186

== ENCOUNTER 2019-12-29 16:00 | Outpatient (RCR) | payer MEDICARE, SELFPAY ==
[2016-12-05 15:47] VITALS: BMI 35.6
[2019-11-30 00:29] VITALS: BP 147/51; PULSE 86; RESP 18; TEMP 36.7
[2019-12-01 09:05] VITALS: BMI 40.0
[2019-12-08 15:52] VITALS: BP 171/53; PULSE 84; RESP 18; TEMP 36.9; BMI 40.0
--- NOTE | 2019-12-08 17:03 | PCM.WC.PN ---
(1) Ulcer of right lower extremity with fat layer exposed Status: Chronic Current Visit: Yes Code(s): L97.912 - Non-pressure chronic ulcer of unspecified part of right lower leg with fat layer exposed (2) CHF (congestive heart failure) Status: Acute Current Visit: No Code(s): I50.9 - Heart failure, unspecified (3) Atherosclerotic heart disease of [place] coronary artery without angina pectoris Status: Chronic Current Visit: No Qualifiers: Code(s): I25.10 - Atherosclerotic heart disease of [place] coronary artery without angina pectoris (4) Chronic steroid use Status: Chronic Current Visit: No (5) DM2 (diabetes mellitus, type 2) Status: Chronic Current Visit: No Code(s): E11.9 - Type 2 diabetes mellitus without complications (6) Debility Status: Chronic Current Visit: No Code(s): R53.81 - Other malaise (7) Depression Status: Chronic Current Visit: No Code(s): F32.9 - Major depressive disorder, single episode, unspecified (8) Dyslipidemia Status: Chronic Current Visit: No Code(s): E78.5 - Hyperlipidemia, unspecified (9) Essential hypertension Status: Chronic Current Visit: No Code(s): I10 - Essential (primary) hypertension (10) Lymphedema Status: Chronic Current Visit: No Code(s): I89.0 - Lymphedema, not elsewhere classified (11) Morbid obesity with BMI of 45.0-49.9, adult Status: Chronic Current Visit: No Code(s): E66.01 - Morbid (severe) obesity due to excess calories; Z68.42 - Body mass index (BMI) 45.0-49.9, adult (12) Venous insufficiency of both lower extremities Status: Chronic Current Visit: No Code(s): I87.2 - Venous insufficiency (chronic) (peripheral) (13) Rheumatoid arthritis Status: Suspected Current Visit: No Code(s): M06.9 - Rheumatoid arthritis, unspecified Comment: she sees Dr. Wiggins and is on Plaquenil and Prednisone Type of Wound Date of Service: 12/08/19 Chief Complaint: Non healing Ulcers History of Wound: Ms Stapleton is a 73-year-old with past medical history as stated above well-known to the wound center and is being managed for chronic venous left lower extremity ulcer. She however now presents with a right lower extremity wound after she was hit by a car door. Was seen as a nurse visit 2 days ago, case was discussed with me and she was advised to apply Fibracol to the wound. Some improvement noted her manager of case/nurse and patient. circulation tender but denies copious drainage, chills, fever otherwise feeling of unwell. Now approved for [facility] to left lower extremity ulcer. She has had 5 applications of Apligraf with some improvement. Did poorly on conservative with management in the past. Progress of Wound: The patient's wound does appear improved in size today, she did not follow-up last week due to being in the hospital for shortness of breath. Therefore the effects was removed prior and she has been utilizing Fibracol and has been doing well on this. Denies any signs of infection or new concerns at this time. - Physical Exam Vital Signs Temp Pulse Resp BP 98.4 F 84 18 171/53 H 12/08/19 15:52 12/08/19 15:52 12/08/19 15:52 12/08/19 15:52 General: Alert, Oriented x3, Cooperative, No apparent distress HEENT: Atraumatic, PERRLA Oral: Moist Mucosa Lungs: Clear to auscultation, Normal air movement Cardiovascular: Regular rate Abdomen: Soft, Non Tender Extremities: No clubbing, No cyanosis, Edema - Lysed bilateral lower extremity edema Skin: Ulcer/ Wound - See nursing documentation, slough and devitalized tissue present Wound Measurements and Assessment WC - Nurse 1 - General Ulcer Measurement Start: 12/08/19 15:52 Freq: Status: Active Protocol: Activity Type Activity Date Activity User E-Sign Co-Sign Detail Recorded Client Recorded Date Recorded By Document 12/08/19 15:52 RB [id number] 12/08/19 15:54 RB 12/08/19 15:52 Wound Center Nurse 1 [Ulcer Assessment] #7- LT CALF posterior cluster -Combined with other wound No -Current Size (cm) - Length 2.8 -Current Size (cm) - Width 3.9 -Current Size (cm) - Depth 0.1 -Total Square Cm 10.92 -Tunneling No -Undermining/Tunneling No -Circular Undermining No -Exudate Amt Medium -Exudate Type Serosanguineous -Wound Margin Flat & Intact -Granulation Amt Medium (34-66%) -Granulation Quality [place] -Slough/Fibrin Yes -Necrosis Amt Medium (34-66%) -Necrotic Tissue Type Adherent Slough -Structure Exposed N/A -Texture (Cassi-wound Skin Appearance) Assessed, Friable -Moisture (Cassi-wound Skin Appearance Assessed ) -Color (Cassi-wound Skin Appearance) Assessed -Temperature (Cassi-wound Skin No Abnormality Appearance) (Pt Warm) -Tenderness on Palpation (Cassi-wound No Skin Appearance) -Ulcer Cleansing Wound Cleanser -Foul Odor after Cleansing No -Anesthetic Used 4% Lidocaine Solution [Edema Assessment] -Lower Limb Edema Present Yes -Left Calf (cm) 40 -Left Ankle (cm) 21.5 WC - Nurse 2 - General Ulcer CM Notes Start: 12/08/19 15:52 Freq: Status: Active Protocol: Activity Type Activity Date Activity User E-Sign Co-Sign Detail Recorded Client Recorded Date Recorded By Document 12/08/19 16:04 MW [id number] 12/08/19 16:07 MW 12/08/19 16:04 Wound Center Nurse 2 [Procedure/Treatment] #7- LT CALF posterior cluster -Time 16:04 -Correct Patient Yes -Correct Side, Site, Position Yes -Correct Procedure Yes -Procedure Performed Yes -Type of Procedure Debridement -Clinical Debridement Subcutaneous -Post Debridement Size (cm) - Length 2.1 -Post Debridement Size (cm) - Width 3.6 -Post Debridement Size (cm) - Depth 0.1 -Total Square Cm 7.56 -Wound/Ulcer Outcome Not Healed -Ulcer Cleansing Rinsed/ Irrigated with Saline -Foul Odor after Cleansing No -Bioengineered Tissue No -Bleeding Controlled with Pressure -Offloading No -Treatment Response Procedure Tolerated Well [See Physician Procedure note for Specifics] Pain Scale: 0-10 Numeric [Pain] -Is Patient Pain Free? Yes Neurological: Neuro grossly intact Psych/Mental Status: Normal Affect, Appropriate, Alert and oriented to time, place, person, mood and affect Debridement Note Post-Debridement Measurements/Treatment - Nurse 2 - General Ulcer CM Notes Start: 12/08/19 15:52 Freq: Status: Active Protocol: Activity Type Activity Date Activity User E-Sign Co-Sign Detail Recorded Client Recorded Date Recorded By Document 12/08/19 16:04 MW [id number] 12/08/19 16:07 MW 12/08/19 16:04 Wound Center Nurse 2 #7- LT CALF posterior cluster -Time 16:04 -Correct Patient Yes -Correct Side, Site, Position Yes -Correct Procedure Yes -Procedure Performed Yes -Type of Procedure Debridement -Clinical Debridement Subcutaneous -Post Debridement Size (cm) - Length 2.1 -Post Debridement Size (cm) - Width 3.6 -Post Debridement Size (cm) - Depth 0.1 -Total Square Cm 7.56 -Wound/Ulcer Outcome Not Healed -Ulcer Cleansing Rinsed/ Irrigated with Saline -Foul Odor after Cleansing No -Bioengineered Tissue No -Bleeding Controlled with Pressure -Offloading No -Treatment Response Procedure Tolerated Well Pain Scale: 0-10 Numeric Is Patient Pain Free? Yes Wound debrided: Right lower extremity ulcer Type of Debridement: Excisional debridement Anesthesia Used: 5% Lidocaine Gel Depth: in the subcutaneous layer Percentage of wound debrided: 100 Instrument Used: 5mm curette Tissue Removed: -Devitalized tissue Severity: Fat Layer Exposed Amount of bleeding with debridement: Mild Bleeding Controlled with: Pressure Patient tolerated procedure well Assessment/Plan Active Problems (Last Reviewed 12/01/19 @ 12:07 by Jake Nesbitt MD) Ulcer of right lower extremity with fat layer exposed (Chronic) Assessment: Nonhealing recurrent left lower extremity ulceration secondary to lymphedema. Left anterior lower extremity ulcer. Diabetes mellitus. Plan: The patient was seen and examined at the wound center today and was updated on the plan of care. A subcutaneous debridement was performed today. The patient tolerated the procedure well. The patients wound care will consist of: Application of moistened Fibracol change daily. Single layer Tubigrip's for compression. Patient educated on the importance of diet on wound healing and instructed to increase protein and vitamin C intake. Patient verbalized understanding. Patient will follow up at wound healing center in one week or sooner if needed. This note was generated with [employer] dictation software. It may contain incorrect words, spelling, and punctuation that were not noted in checking the note before signing. Code Visit 111xxx-113xx: [id number] [place] subq tissue 20 sq cm/<
[2019-12-15 14:55] VITALS: BP 165/92; PULSE 73; RESP 20; TEMP 37.2; BMI 40.0
--- NOTE | 2019-12-20 09:47 | PN.PCM_ITS ---
(1) Ulcer of left lower extremity with fat layer exposed Status: Chronic Current Visit: Yes Code(s): L97.922 - Non-pressure chronic ulcer of unspecified part of left lower leg with fat layer exposed Comment: mixed venous arterial left posterior calf (2) Ulcer of right lower extremity with fat layer exposed Status: Chronic Current Visit: No Code(s): L97.912 - Non-pressure chronic ulcer of unspecified part of right lower leg with fat layer exposed (3) CHF (congestive heart failure) Status: Acute Current Visit: No Code(s): I50.9 - Heart failure, unspecified (4) Atherosclerotic heart disease of [place] coronary artery without angina pectoris Status: Chronic Current Visit: No Qualifiers: Code(s): I25.10 - Atherosclerotic heart disease of [place] coronary artery without angina pectoris (5) Chronic steroid use Status: Chronic Current Visit: No (6) DM2 (diabetes mellitus, type 2) Status: Chronic Current Visit: No Code(s): E11.9 - Type 2 diabetes mellitus without complications (7) Debility Status: Chronic Current Visit: No Code(s): R53.81 - Other malaise (8) Depression Status: Chronic Current Visit: No Code(s): F32.9 - Major depressive disorder, single episode, unspecified (9) Dyslipidemia Status: Chronic Current Visit: No Code(s): E78.5 - Hyperlipidemia, unspecified (10) Essential hypertension Status: Chronic Current Visit: No Code(s): I10 - Essential (primary) hypertension (11) Lymphedema Status: Chronic Current Visit: No Code(s): I89.0 - Lymphedema, not elsewhere classified (12) Morbid obesity with BMI of 45.0-49.9, adult Status: Chronic Current Visit: No Code(s): E66.01 - Morbid (severe) obesity due to excess calories; Z68.42 - Body mass index (BMI) 45.0-49.9, adult (13) Venous insufficiency of both lower extremities Status: Chronic Current Visit: No Code(s): I87.2 - Venous insufficiency (chronic) (peripheral) (14) Rheumatoid arthritis Status: Suspected Current Visit: No Code(s): M06.9 - Rheumatoid arthritis, unspecified Comment: she sees Dr. Wiggins and is on Plaquenil and Prednisone Type of Wound Date of Service: 12/15/19 Chief Complaint: Non healing Ulcers History of Wound: Ms Stapleton is a 73-year-old with past medical history as stated above well-known to the wound center and is being managed for chronic venous left lower extremity ulcer. She however now presents with a right lower extremity wound after she was hit by a car door. Was seen as a nurse visit 2 days ago, case was discussed with me and she was advised to apply Fibracol to the wound. Some improvement noted her counter caser/nurse and patient. buggy ladle tender but denies copious drainage, chills, fever otherwise feeling of unwell. Now approved for [facility] to left lower extremity ulcer. She has had 5 applications of Apligraf with some improvement. Did poorly on conservative with management in the past. Progress of Wound: The patient's wound is stable, No new concerns at this time, patient does have multiple excoriations present surrounding the wound where she has itched the surrounding skin. Denies any signs of infection or new concerns at this time. - Physical Exam Vital Signs Temp Pulse Resp BP 98.9 F 73 20 H 165/92 H 12/15/19 14:55 12/15/19 14:55 12/15/19 14:55 12/15/19 14:55 General: Alert, Oriented x3, Cooperative, No apparent distress HEENT: Atraumatic Oral: Moist Mucosa Lungs: Clear to auscultation Cardiovascular: Regular rate Abdomen: Soft, Non Tender Extremities: No clubbing, No cyanosis, Edema - +1 pitting bilateral lower extrem ity edema Skin: Ulcer/ Wound - See nursing documentation, slough and devitalized tissue present on left lower extremity ulcer, no signs of obvious infection, surrounding excoriation Neurological: Neuro grossly intact Psych/Mental Status: Normal Affect, Appropriate, Alert and oriented to time, place, person, mood and affect Debridement Note Post-Debridement Measurements/Treatment WC - Nurse 2 - General Ulcer CM Notes Start: 12/08/19 15:52 Freq: Status: Active Protocol: Activity Type Activity Date Activity User E-Sign Co-Sign Detail Recorded Client Recorded Date Recorded By Document 12/08/19 16:04 MW [id number] 12/08/19 16:07 MW Document 12/15/19 15:42 MW [id number] 12/15/19 15:46 MW 12/08/19 12/15/19 16:04 15:42 Wound Center Nurse 2 #7- LT CALF posterior cluster -Time 16:04 15:42 -Correct Patient Yes Yes -Correct Side, Site, Position Yes Yes -Correct Procedure Yes Yes -Procedure Performed Yes Yes -Type of Procedure Debridement Debridement -Clinical Debridement Subcutaneous Subcutaneous -Post Debridement Size (cm) - Length 2.1 2.1 -Post Debridement Size (cm) - Width 3.6 4.1 -Post Debridement Size (cm) - Depth 0.1 0.1 -Total Square Cm 7.56 8.61 -Wound/Ulcer Outcome Not Healed Not Healed -Ulcer Cleansing Rinsed/ Rinsed/ Irrigated with Irrigated with Saline Saline -Foul Odor after Cleansing No No -Bioengineered Tissue No Yes -Type of bioengineered Tissue EPIFIX -Expiration Date 08/30/24 -Product Lot Number [id number] -Percent Used 100 -Saline Lot Number [id number] -Bleeding Controlled with Pressure Pressure -Offloading No No -Treatment Response Procedure Procedure Tolerated Well Tolerated Well Pain Scale: 0-10 Numeric Is Patient Pain Free? Yes Yes Wound debrided: Nonhealing ulcer left lower extremity Laterality: Left Type of Debridement: Excisional debridement Anesthesia Used: 5% Lidocaine Gel Depth: in the subcutaneous layer Percentage of wound debrided: 100 Instrument Used: 5mm curette Tissue Removed: Slough and devitalized tissue Severity: Fat Layer Exposed Amount of bleeding with debridement: Mild Bleeding Controlled with: Pressure Patient tolerated procedure well Assessment/Plan Active Problems (Last Reviewed 12/01/19 @ 12:07 by Jake Nesbitt MD) Ulcer of left lower extremity with fat layer exposed (Chronic) mixed venous arterial left posterior calf Assessment: Nonhealing recurrent left lower extremity ulceration secondary to lymphedema. Left anterior lower extremity ulcer. Diabetes mellitus. Plan: The patient was seen and examined at the wound center today and was updated on the plan of care. A subcutaneous debridement was performed today. The patient tolerated the procedure well. The patients wound care will consist of: Application of Epifix was applied today and secured with Adaptic touch and Steri-Strips, covered with Aquacel extra 100% utilized with no wastage and surrounding area was wrapped with a Unna boot for compression and to help with the multiple excoriations. Patient educated on the importance of diet on wound healing and instructed to increase protein and vitamin C intake. Patient verbalized understanding. Patient will follow up at wound healing center in one week or sooner if needed. This note was generated with [employer] software. It may contain incorrect words, spelling, and punctuation that were not noted in checking the note before signing. Code Visit 150xxx-152xx: [id number] Skin sub graft trnk/arm/leg
[2019-12-22 14:13] VITALS: BP 153/69; PULSE 92; RESP 16; TEMP 37.5; BMI 40.0
--- NOTE | 2019-12-22 17:09 | PCM.WC.PN ---
(1) Ulcer of left lower extremity with fat layer exposed Status: Chronic Current Visit: Yes Code(s): L97.922 - Non-pressure chronic ulcer of unspecified part of left lower leg with fat layer exposed Comment: mixed venous arterial left posterior calf (2) Ulcer of right lower extremity with fat layer exposed Status: Chronic Current Visit: No Code(s): L97.912 - Non-pressure chronic ulcer of unspecified part of right lower leg with fat layer exposed (3) CHF (congestive heart failure) Status: Acute Current Visit: No Code(s): I50.9 - Heart failure, unspecified (4) Atherosclerotic heart disease of [place] coronary artery without angina pectoris Status: Chronic Current Visit: No Qualifiers: Code(s): I25.10 - Atherosclerotic heart disease of [place] coronary artery without angina pectoris (5) Chronic steroid use Status: Chronic Current Visit: No (6) DM2 (diabetes mellitus, type 2) Status: Chronic Current Visit: No Code(s): E11.9 - Type 2 diabetes mellitus without complications (7) Debility Status: Chronic Current Visit: No Code(s): R53.81 - Other malaise (8) Depression Status: Chronic Current Visit: No Code(s): F32.9 - Major depressive disorder, single episode, unspecified (9) Dyslipidemia Status: Chronic Current Visit: No Code(s): E78.5 - Hyperlipidemia, unspecified (10) Essential hypertension Status: Chronic Current Visit: No Code(s): I10 - Essential (primary) hypertension (11) Lymphedema Status: Chronic Current Visit: No Code(s): I89.0 - Lymphedema, not elsewhere classified (12) Morbid obesity with BMI of 45.0-49.9, adult Status: Chronic Current Visit: No Code(s): E66.01 - Morbid (severe) obesity due to excess calories; Z68.42 - Body mass index (BMI) 45.0-49.9, adult (13) Venous insufficiency of both lower extremities Status: Chronic Current Visit: No Code(s): I87.2 - Venous insufficiency (chronic) (peripheral) (14) Rheumatoid arthritis Status: Suspected Current Visit: No Code(s): M06.9 - Rheumatoid arthritis, unspecified Comment: she sees Dr. Wiggins and is on Plaquenil and Prednisone Type of Wound Date of Service: 12/22/19 Chief Complaint: Non healing Ulcers History of Wound: Ms Stapleton is a 73-year-old with past medical history as stated above well-known to the wound center and is being managed for chronic venous left lower extremity ulcer. She however now presents with a right lower extremity wound after she was hit by a car door. Was seen as a nurse visit 2 days ago, case was discussed with me and she was advised to apply Fibracol to the wound. 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 Now approved for [facility] to left lower extremity ulcer. She has had 5 applications of Apligraf with some improvement. Did poorly on conservative with management in the past. Progress of Wound: The patient's wound is improved in size, No new concerns at this time, Denies any signs of infection or new concerns at this time. - Physical Exam Vital Signs Temp Pulse Resp BP 99.5 F H 92 16 153/69 H 12/22/19 14:13 12/22/19 14:13 12/22/19 14:13 12/22/19 14:13 General: Alert, Oriented x3, Cooperative, No apparent distress HEENT: Atraumatic Oral: Moist Mucosa Neck: Supple Lungs: Clear to auscultation, Normal air movement Cardiovascular: Regular rate, Regular Rhythm Abdomen: Soft, Non Tender, Obese Extremities: No clubbing, No cyanosis, Edema - +1 pitting bilateral lower extremity edema Skin: Ulcer/ Wound - See nursing documentation, slough and devitalized tissue present to left lower extremity, surrounding excoriations have resolved Wound Measurements and Assessment - Nurse 1 - General Ulcer Measurement Start: 12/08/19 15:52 Freq: Status: Active Protocol: Activity Type Activity Date Activity User E-Sign Co-Sign Detail Recorded Client Recorded Date Recorded By Document 12/22/19 14:13 [id number] 12/22/19 14:14 12/22/19 14:13 Wound Center Nurse 1 [Ulcer Assessment] #7- LT CALF posterior cluster -Combined with other wound No -Current Size (cm) - Length 2.4 -Current Size (cm) - Width 3.2 -Current Size (cm) - Depth 0.1 -Total Square Cm 7.68 -Photo Taken No -Epithelialization Small 1-33% -Tunneling No -Undermining/Tunneling No -Circular Undermining No -Exudate Amt Small -Exudate Type Serosanguineous -Wound Margin Distinct, Outline Attached -Granulation Amt Large (67-100%) -Granulation Quality Pale,Red -Slough/Fibrin Yes -Necrosis Amt Small (1-33%) -Necrotic Tissue Type Adherent Slough -Texture (Cassi-wound Skin Appearance) Assessed -Moisture (Cassi-wound Skin Appearance Assessed,Dry/ ) Scaly -Color (Cassi-wound Skin Appearance) Assessed -Temperature (Cassi-wound Skin No Abnormality Appearance) (Pt Warm) -Tenderness on Palpation (Csasi-wound No Skin Appearance) -Ulcer Cleansing soapy water -Foul Odor after Cleansing No -Anesthetic Used 4% Lidocaine Solution [Edema Assessment] -Lower Limb Edema Present Yes -Left Calf (cm) 39.1 -Left Ankle (cm) 21 WC - Nurse 2 - General Ulcer CM Notes Start: 12/08/19 15:52 Freq: Status: Active Protocol: Activity Type Activity Date Activity User E-Sign Co-Sign Detail Recorded Client Recorded Date Recorded By Document 12/22/19 14:41 MW [id number] 12/22/19 14:48 MW 12/22/19 14:41 Wound Center Nurse 2 [Procedure/Treatment] #7- LT CALF posterior cluster -Time 14:41 -Correct Patient Yes -Correct Side, Site, Position Yes -Correct Procedure Yes -Procedure Performed Yes -Type of Procedure Debridement -Clinical Debridement Subcutaneous -Post Debridement Size (cm) - Length 1.9 -Post Debridement Size (cm) - Width 3.5 -Post Debridement Size (cm) - Depth 0.1 -Total Square Cm 6.65 -Wound/Ulcer Outcome Not Healed -Ulcer Cleansing Rinsed/ Irrigated with Saline -Foul Odor after Cleansing No -Bioengineered Tissue Yes -Type of bioengineered Tissue EPIFIX -Expiration Date 08/30/24 -Product Lot Number [id number] -Percent Used 100 -Saline Lot Number [id number] -Bleeding Controlled with Pressure -Offloading No -Treatment Response Procedure Tolerated Well [See Physician Procedure note for Specifics] Pain Scale: 0-10 Numeric [Pain] -Is Patient Pain Free? Yes Neurological: Neuro grossly intact Psych/Mental Status: Normal Affect, Appropriate, Alert and oriented to time, place, person, mood and affect Debridement Note Post-Debridement Measurements/Treatment WC - Nurse 2 - General Ulcer CM Notes Start: 12/08/19 15:52 Freq: Status: Active Protocol: Activity Type Activity Date Activity User E-Sign Co-Sign Detail Recorded Client Recorded Date Recorded By Document 12/08/19 16:04 MW [id number] 12/08/19 16:07 MW Document 12/15/19 15:42 MW [id number] 12/15/19 15:46 MW Document 12/22/19 14:41 MW [id number] 12/22/19 14:48 MW 12/08/19 12/15/19 12/22/19 16:04 15:42 14:41 Wound Center Nurse 2 #7- LT CALF posterior cluster -Time 16:04 15:42 14:41 -Correct Patient Yes Yes Yes -Correct Side, Site, Position Yes Yes Yes -Correct Procedure Yes Yes Yes -Procedure Performed Yes Yes Yes -Type of Procedure Debridement Debridement Debridement -Clinical Debridement Subcutaneous Subcutaneous Subcutaneous -Post Debridement Size (cm) - Length 2.1 2.1 1.9 -Post Debridement Size (cm) - Width 3.6 4.1 3.5 -Post Debridement Size (cm) - Depth 0.1 0.1 0.1 -Total Square Cm 7.56 8.61 6.65 -Wound/Ulcer Outcome Not Healed Not Healed Not Healed -Ulcer Cleansing Rinsed/ Rinsed/ Rinsed/ Irrigated with Irrigated with Irrigated with Saline Saline Saline -Foul Odor after Cleansing No No No -Bioengineered Tissue No Yes Yes -Type of bioengineered Tissue EPIFIX EPIFIX -Expiration Date 08/30/24 08/30/24 -Product Lot Number [id number] -Percent Used 100 100 -Saline Lot Number [id number] -Bleeding Controlled with Pressure Pressure Pressure -Offloading No No No -Treatment Response Procedure Procedure Procedure Tolerated Well Tolerated Well Tolerated Well Pain Scale: 0-10 Numeric Is Patient Pain Free? Yes Yes Yes Wound debrided: Left lower extremity nonhealing ulcer Laterality: Left Type of Debridement: Excisional debridement Anesthesia Used: 5% Lidocaine Gel Depth: in the subcutaneous layer Percentage of wound debrided: 100 Instrument Used: 5mm curette Tissue Removed: Slough and devitalized tissue Severity: Fat Layer Exposed Amount of bleeding with debridement: Mild Bleeding Controlled with: Pressure Patient tolerated procedure well Assessment/Plan Active Problems (Last Reviewed 12/01/19 @ 12:07 by Jake Nesbitt MD) Ulcer of left lower extremity with fat layer exposed (Chronic) mixed venous arterial left posterior calf Assessment: Nonhealing recurrent left lower extremity ulceration secondary to lymphedema. Left anterior lower extremity ulcer. Diabetes mellitus. Plan: The patient was seen and examined at the wound center today and was updated on the plan of care. A subcutaneous debridement was performed today. The patient tolerated the procedure well. The patients wound care will consist of: Application of Epifix was applied today and secured with Adaptic touch and Steri-Strips, covered with Aquacel extra 100% utilized with no wastage and surrounding area was wrapped with a Unna boot for compression and to help with the multiple excoriations. Patient educated on the importance of diet on wound healing and instructed to increase protein and vitamin C intake. Patient verbalized understanding. Patient will follow up at wound healing center in one week or sooner if needed. This note was generated with [employer] software. It may contain incorrect words, spelling, and punctuation that were not noted in checking the note before signing. Code Visit 150xxx-152xx: 18309 Skin sub graft trnk/arm/leg
[2019-12-29 16:03] VITALS: BP 165/82; PULSE 97; RESP 16; TEMP 36.9; BMI 40.0
--- NOTE | 2019-12-29 18:28 | PN.PCM_ITS ---
(1) Ulcer of left lower extremity with fat layer exposed Status: Chronic Current Visit: Yes Code(s): L97.922 - Non-pressure chronic ulcer of unspecified part of left lower leg with fat layer exposed Comment: mixed venous arterial left posterior calf (2) Ulcer of right lower extremity with fat layer exposed Status: Chronic Current Visit: Yes Code(s): L97.912 - Non-pressure chronic ulcer of unspecified part of right lower leg with fat layer exposed (3) CHF (congestive heart failure) Status: Acute Current Visit: No Code(s): I50.9 - Heart failure, unspecified (4) Atherosclerotic heart disease of [place] coronary artery without angina pectoris Status: Chronic Current Visit: No Qualifiers: Code(s): I25.10 - Atherosclerotic heart disease of [place] coronary artery without angina pectoris (5) Chronic steroid use Status: Chronic Current Visit: No (6) DM2 (diabetes mellitus, type 2) Status: Chronic Current Visit: No Code(s): E11.9 - Type 2 diabetes mellitus without complications (7) Debility Status: Chronic Current Visit: No Code(s): R53.81 - Other malaise (8) Depression Status: Chronic Current Visit: No Code(s): F32.9 - Major depressive disorder, single episode, unspecified (9) Dyslipidemia Status: Chronic Current Visit: No Code(s): E78.5 - Hyperlipidemia, unspecified (10) Essential hypertension Status: Chronic Current Visit: No Code(s): I10 - Essential (primary) hypertension (11) Lymphedema Status: Chronic Current Visit: No Code(s): I89.0 - Lymphedema, not elsewhere classified (12) Morbid obesity with BMI of 45.0-49.9, adult Status: Chronic Current Visit: No Code(s): E66.01 - Morbid (severe) obesity due to excess calories; Z68.42 - Body mass index (BMI) 45.0-49.9, adult (13) Venous insufficiency of both lower extremities Status: Chronic Current Visit: No Code(s): I87.2 - Venous insufficiency (chronic) (peripheral) (14) Rheumatoid arthritis Status: Suspected Current Visit: No Code(s): M06.9 - Rheumatoid arthritis, unspecified Comment: she sees Dr. Wiggins and is on Plaquenil and Prednisone Type of Wound Date of Service: 12/29/19 Chief Complaint: Non healing Ulcers History of Wound: Ms Stapleton is a 73-year-old with past medical history as stated above well-known to the wound center and is being managed for chronic venous left lower extremity ulcer. She however now presents with a right lower extremity wound after she was hit by a car door. Was seen as a nurse visit 2 days ago, case was discussed with me and she was advised to apply Fibracol to the wound. 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 Now approved for [facility] to left lower extremity ulcer. She has had 5 applications of Apligraf with some improvement. Did poorly on conservative with management in the past. Progress of Wound: The patient's wound is improved in size, No new concerns at this time, Denies any signs of infection or new concerns at this time. - Physical Exam Vital Signs Temp Pulse Resp BP 98.4 F 97 16 165/82 H 12/29/19 16:03 12/29/19 16:03 12/29/19 16:03 12/29/19 16:03 General: Alert, Oriented x3, Cooperative, No apparent distress HEENT: Atraumatic Oral: Moist Mucosa Lungs: Clear to auscultation, Normal air movement Cardiovascular: Regular rate, Regular Rhythm Abdomen: Soft, Non Tender Extremities: No clubbing, No cyanosis, Edema - Generalized +1 pitting bilateral lower extremity edema Skin: Ulcer/ Wound - See nursing documentation, slough and devitalized tissue present, no signs of infection at this time. Wound Measurements and Assessment WC - Nurse 1 - General Ulcer Measurement Start: 12/08/19 15:52 Freq: Status: Active Protocol: Activity Type Activity Date Activity User E-Sign Co-Sign Detail Recorded Client Recorded Date Recorded By Document 12/29/19 16:03 [facility] [id number] 12/29/19 16:11 [facility] 12/29/19 16:03 Wound Center Nurse 1 [Ulcer Assessment] #7- LT CALF posterior cluster -Combined with other wound No -Current Size (cm) - Length 1.8 -Current Size (cm) - Width 1.9 -Current Size (cm) - Depth 0.1 -Total Square Cm 3.42 -Photo Taken No -Epithelialization Small 1-33% -Tunneling No -Undermining/Tunneling No -Circular Undermining No -Exudate Amt Medium -Exudate Type Purulent -Wound Margin Flat & Intact -Granulation Amt Large (67-100%) -Granulation Quality Oso -Slough/Fibrin Yes -Necrosis Amt Small (1-33%) -Necrotic Tissue Type Adherent Slough -Texture (Cassi-wound Skin Appearance) Assessed, Excoriation, Scarring -Moisture (Cassi-wound Skin Appearance Assessed, ) Maceration,Dry/ Scaly -Color (Cassi-wound Skin Appearance) Assessed, Erythema,Palor -Temperature (Cassi-wound Skin No Abnormality Appearance) (Pt Warm) -Tenderness on Palpation (Cassi-wound No Skin Appearance) -Ulcer Cleansing soapy water -Foul Odor after Cleansing No -Anesthetic Used 4% Lidocaine Solution [Edema Assessment] -Lower Limb Edema Present Yes -Left Calf (cm) 40.6 -Left Ankle (cm) 20.8 WC - Nurse 2 - General Ulcer CM Notes Start: 12/08/19 15:52 Freq: Status: Active Protocol: Activity Type Activity Date Activity User E-Sign Co-Sign Detail Recorded Client Recorded Date Recorded By Document 12/29/19 16:18 MW [id number] 12/29/19 16:25 MW 12/29/19 16:18 Wound Center Nurse 2 [Procedure/Treatment] #7- LT CALF posterior cluster -Time 16:18 -Correct Patient Yes -Correct Side, Site, Position Yes -Correct Procedure Yes -Procedure Performed Yes -Type of Procedure Debridement -Clinical Debridement Subcutaneous -Post Debridement Size (cm) - Length 1.5 -Post Debridement Size (cm) - Width 3.5 -Post Debridement Size (cm) - Depth 0.1 -Total Square Cm 5.25 -Wound/Ulcer Outcome Not Healed -Ulcer Cleansing Rinsed/ Irrigated with Saline -Foul Odor after Cleansing No -Bioengineered Tissue Yes -Type of bioengineered Tissue EPIFIX -Expiration Date 08/30/24 -Product Lot Number [id number] -Percent Used 100 -Bleeding Controlled with Pressure -Other C.HYDROGEL LOT# [id number] -Offloading No -Treatment Response Procedure Tolerated Well [See Physician Procedure note for Specifics] Pain Scale: 0-10 Numeric [Pain] -Is Patient Pain Free? Yes Neurological: Neuro grossly intact Psych/Mental Status: Normal Affect, Appropriate, Alert and oriented to time, place, person, mood and affect Debridement Note Post-Debridement Measurements/Treatment WC - Nurse 2 - General Ulcer CM Notes Start: 12/08/19 15:52 Freq: Status: Active Protocol: Activity Type Activity Date Activity User E-Sign Co-Sign Detail Recorded Client Recorded Date Recorded By Document 12/08/19 16:04 MW [id number] 12/08/19 16:07 MW Document 12/15/19 15:42 MW [id number] 12/15/19 15:46 MW Document 12/22/19 14:41 MW [id number] 12/22/19 14:48 MW Document 12/29/19 16:18 MW [id number] 12/29/19 16:25 MW 12/08/19 12/15/19 12/22/19 16:04 15:42 14:41 Wound Center Nurse 2 #7- LT CALF posterior cluster -Time 16:04 15:42 14:41 -Correct Patient Yes Yes Yes -Correct Side, Site, Position Yes Yes Yes -Correct Procedure Yes Yes Yes -Procedure Performed Yes Yes Yes -Type of Procedure Debridement Debridement Debridement -Clinical Debridement Subcutaneous Subcutaneous Subcutaneous -Post Debridement Size (cm) - Length 2.1 2.1 1.9 -Post Debridement Size (cm) - Width 3.6 4.1 3.5 -Post Debridement Size (cm) - Depth 0.1 0.1 0.1 -Total Square Cm 7.56 8.61 6.65 -Wound/Ulcer Outcome Not Healed Not Healed Not Healed -Ulcer Cleansing Rinsed/ Rinsed/ Rinsed/ Irrigated with Irrigated with Irrigated with Saline Saline Saline -Foul Odor after Cleansing No No No -Bioengineered Tissue No Yes Yes -Type of bioengineered Tissue EPIFIX EPIFIX -Expiration Date 08/30/24 08/30/24 -Product Lot Number [id number] -Percent Used 100 100 -Saline Lot Number [id number] -Bleeding Controlled with Pressure Pressure Pressure -Other -Offloading No No No -Treatment Response Procedure Procedure Procedure Tolerated Well Tolerated Well Tolerated Well Pain Scale: 0-10 Numeric Is Patient Pain Free? Yes Yes Yes 12/29/19 16:18 Wound Center Nurse 2 #7- LT CALF posterior cluster -Time 16:18 -Correct Patient Yes -Correct Side, Site, Position Yes -Correct Procedure Yes -Procedure Performed Yes -Type of Procedure Debridement -Clinical Debridement Subcutaneous -Post Debridement Size (cm) - Length 1.5 -Post Debridement Size (cm) - Width 3.5 -Post Debridement Size (cm) - Depth 0.1 -Total Square Cm 5.25 -Wound/Ulcer Outcome Not Healed -Ulcer Cleansing Rinsed/ Irrigated with Saline -Foul Odor after Cleansing No -Bioengineered Tissue Yes -Type of bioengineered Tissue EPIFIX -Expiration Date 08/30/24 -Product Lot Number [id number] -Percent Used 100 -Saline Lot Number -Bleeding Controlled with Pressure -Other C.HYDROGEL LOT# [id number] -Offloading No -Treatment Response Procedure Tolerated Well Pain Scale: 0-10 Numeric Is Patient Pain Free? Yes Wound debrided: Venous leg ulcer left lower extremity Laterality: Left Type of Debridement: Excisional debridement Anesthesia Used: 5% Lidocaine Gel Depth: in the subcutaneous layer Percentage of wound debrided: 100 Instrument Used: 5mm curette Tissue Removed: Slough and devitalized tissue Severity: Fat Layer Exposed Amount of bleeding with debridement: Mild Bleeding Controlled with: Pressure Patient tolerated procedure well Assessment/Plan Active Problems (Last Reviewed 12/01/19 @ 12:07 by Jake Nesbitt MD) Ulcer of right lower extremity with fat layer exposed (Chronic) Ulcer of left lower extremity with fat layer exposed (Chronic) mixed venous arterial left posterior calf Assessment: Nonhealing recurrent left lower extremity ulceration secondary to lymphedema. Left anterior lower extremity ulcer. Diabetes mellitus. Plan: The patient was seen and examined at the wound center today and was updated on the plan of care. A subcutaneous debridement was performed today. The patient tolerated the procedure well. The patients wound care will consist of: Application of Epifix was applied today and secured with Adaptic touch and Steri-Strips, covered with Aquacel extra 100% utilized with no wastage and surrounding area was wrapped with a Unna boot for compression and to help with the multiple excoriations. Patient educated on the importance of diet on wound healing and instructed to increase protein and vitamin C intake. Patient verbalized understanding. Patient will follow up at wound healing center in one week or sooner if needed. This note was generated with [employer] dictation software. It may contain incorrect words, spelling, and punctuation that were not noted in checking the note before signing. Code Visit 150xxx-152xx: [id number] Skin sub graft trnk/arm/leg
== END 2019-12-30 23:59 ==
LOC: WC 16:00
PROVIDERS: Family Provider Nurse Practitioner; PCP Nurse Practitioner; Referring Provider Internal Medicine; Visit Provider Nurse Practitioner
DX: E11.622 Type 2 diabetes mellitus with other skin ulcer (principal); L97.222 Non-pressure chronic ulcer of left calf with fat layer exposed; E66.01 Morbid (severe) obesity due to excess calories; Z68.42 Body mass index [BMI] 45.0-49.9, adult; I50.9 Heart failure, unspecified; I25.10 Atherosclerotic heart disease of native coronary artery without angina pectoris; Z79.52 Long term (current) use of systemic steroids; E78.5 Hyperlipidemia, unspecified; I11.0 Hypertensive heart disease with heart failure; M06.9 Rheumatoid arthritis, unspecified; R60.0 Localized edema; I89.0 Lymphedema, not elsewhere classified
CPT/HCPCS: 11042; 15271; Q4186

== ENCOUNTER 2020-01-26 15:30 | Outpatient (RCR) | payer MEDICARE, SELFPAY ==
[2016-12-05 15:47] VITALS: BMI 35.6
[2019-12-31 00:33] VITALS: BP 165/82; PULSE 97; RESP 16; TEMP 36.9
[2020-01-05 16:13] VITALS: BP 150/88; PULSE 88; RESP 18; TEMP 36.6; BMI 40.0
--- NOTE | 2020-01-05 17:10 | PN.PCM_ITS ---
(1) Ulcer of left lower extremity with fat layer exposed Status: Chronic Current Visit: Yes Code(s): L97.922 - Non-pressure chronic ulcer of unspecified part of left lower leg with fat layer exposed Comment: mixed venous arterial left posterior calf (2) UTI (urinary tract infection) Status: Acute Current Visit: No Code(s): N39.0 - Urinary tract infection, site not specified (3) Chronic renal failure, stage 4 (severe) Status: Chronic Current Visit: Yes Code(s): N18.4 - Chronic kidney disease, stage 4 (severe) (4) Chronic steroid use Status: Chronic Current Visit: Yes (5) DM2 (diabetes mellitus, type 2) Status: Chronic Current Visit: No Code(s): E11.9 - Type 2 diabetes mellitus without complications (6) Debility Status: Chronic Current Visit: No Code(s): R53.81 - Other malaise (7) Essential hypertension Status: Chronic Current Visit: No Code(s): I10 - Essential (primary) hypertension (8) Morbid obesity with BMI of 45.0-49.9, adult Status: Chronic Current Visit: No Code(s): E66.01 - Morbid (severe) obesity due to excess calories; Z68.42 - Body mass index (BMI) 45.0-49.9, adult (9) Venous insufficiency of both lower extremities Status: Chronic Current Visit: No Code(s): I87.2 - Venous insufficiency (chronic) (peripheral) Type of Wound Date of Service: 01/05/20 Chief Complaint: Non healing Ulcers History of Wound: Ms Stapleton is a 73-year-old with past medical history as stated above well-known to the wound center and is being managed for chronic venous left lower extremity ulcer. She however now presents with a right lower extremity wound after she was hit by a car door. Was seen as a nurse visit 2 days ago, case was discussed with me and she was advised to apply Fibracol to the wound. Some improvement noted her ed case manager/nurse and patient. stave machine tender but denies copious drainage, chills, fever otherwise feeling of unwell. Now approved for [facility] to left lower extremity ulcer. She has had 5 applications of Apligraf with some improvement. Did poorly on conservative with management in the past. Progress of Wound: The patient's wound is improved in size, No new concerns at this time, Denies any signs of infection or new concerns at this time. - Physical Exam Vital Signs Temp Pulse Resp BP 98 F 88 18 150/88 H 01/05/20 16:13 01/05/20 16:13 01/05/20 16:13 01/05/20 16:13 General: Alert, Oriented x3, Cooperative, No apparent distress HEENT: Atraumatic Oral: Moist Mucosa Lungs: Clear to auscultation, Normal air movement Cardiovascular: Regular rate Abdomen: Soft Extremities: No clubbing, No cyanosis, Edema - Mild bilateral lower extremity edema Skin: Ulcer/ Wound - See nursing documentation, slough and devitalized tissue present left lower extremity ulcer, no signs of infection at this time Wound Measurements and Assessment WC - Nurse 1 - General Ulcer Measurement Start: 01/05/20 16:13 Freq: Status: Active Protocol: Activity Type Activity Date Activity User E-Sign Co-Sign Detail Recorded Client Recorded Date Recorded By Document 01/05/20 16:13 RB [id number] 01/05/20 16:22 RB 01/05/20 16:13 Wound Center Nurse 1 [Ulcer Assessment] #7- LT CALF posterior cluster -Combined with other wound No -Current Size (cm) - Length 1.3 -Current Size (cm) - Width 1.5 -Current Size (cm) - Depth 0.1 -Total Square Cm 1.95 -Tunneling No -Undermining/Tunneling No -Circular Undermining No -Exudate Amt Medium -Exudate Type Serosanguineous -Wound Margin Flat & Intact -Granulation Amt Medium (34-66%) -Granulation Quality [place] -Slough/Fibrin Yes -Necrosis Amt Large (67-100%) -Necrotic Tissue Type Adherent Slough -Structure Exposed N/A -Texture (Cassi-wound Skin Appearance) Assessed -Moisture (Cassi-wound Skin Appearance Dry/Scaly ) -Color (Cassi-wound Skin Appearance) Assessed -Temperature (Cassi-wound Skin No Abnormality Appearance) (Pt Warm) -Tenderness on Palpation (Cassi-wound No Skin Appearance) -Ulcer Cleansing Wound Cleanser -Foul Odor after Cleansing No -Anesthetic Used 5% Lidocaine Gel [Edema Assessment] -Lower Limb Edema Present Yes -Left Calf (cm) 35.7 -Left Ankle (cm) 21 WC - Nurse 2 - General Ulcer CM Notes Start: 01/05/20 16:13 Freq: Status: Active Protocol: Activity Type Activity Date Activity User E-Sign Co-Sign Detail Recorded Client Recorded Date Recorded By Document 01/05/20 16:26 MW [id number] 01/05/20 16:31 MW 01/05/20 16:26 Wound Center Nurse 2 [Procedure/Treatment] #7- LT CALF posterior cluster -Time 16:27 -Correct Patient Yes -Correct Side, Site, Position Yes -Correct Procedure Yes -Procedure Performed Yes -Type of Procedure Debridement -Clinical Debridement Subcutaneous -Post Debridement Size (cm) - Length 1.5 -Post Debridement Size (cm) - Width 3.0 -Post Debridement Size (cm) - Depth 0.1 -Total Square Cm 4.50 -Wound/Ulcer Outcome Not Healed -Ulcer Cleansing Rinsed/ Irrigated with Saline -Foul Odor after Cleansing No -Bioengineered Tissue Yes -Type of bioengineered Tissue EPIFIX -Expiration Date 08/30/24 -Product Lot Number [id number] -Percent Used 100 -Saline Lot Number [id number] -Bleeding Controlled with Pressure -Other EPIFIX 4X4.5 MESH - 11 UNITS -Offloading No -Type of Offloading Surgical Shoe -Treatment Response Procedure Tolerated Well [See Physician Procedure note for Specifics] Pain Scale: 0-10 Numeric [Pain] -Is Patient Pain Free? Yes Neurological: Neuro grossly intact Psych/Mental Status: Normal Affect, Appropriate, Alert and oriented to time, place, person, mood and affect Debridement Note Post-Debridement Measurements/Treatment WC - Nurse 2 - General Ulcer CM Notes Start: 01/05/20 16:13 Freq: Status: Active Protocol: Activity Type Activity Date Activity User E-Sign Co-Sign Detail Recorded Client Recorded Date Recorded By Document 01/05/20 16:26 MW [id number] 01/05/20 16:31 MW 01/05/20 16:26 Wound Center Nurse 2 #7- LT CALF posterior cluster -Time 16:27 -Correct Patient Yes -Correct Side, Site, Position Yes -Correct Procedure Yes -Procedure Performed Yes -Type of Procedure Debridement -Clinical Debridement Subcutaneous -Post Debridement Size (cm) - Length 1.5 -Post Debridement Size (cm) - Width 3.0 -Post Debridement Size (cm) - Depth 0.1 -Total Square Cm 4.50 -Wound/Ulcer Outcome Not Healed -Ulcer Cleansing Rinsed/ Irrigated with Saline -Foul Odor after Cleansing No -Bioengineered Tissue Yes -Type of bioengineered Tissue EPIFIX -Expiration Date 08/30/24 -Product Lot Number [id number] -Percent Used 100 -Saline Lot Number [id number] -Bleeding Controlled with Pressure -Other EPIFIX 4X4.5 MESH - 11 UNITS -Offloading No -Type of Offloading Surgical Shoe -Treatment Response Procedure Tolerated Well Pain Scale: 0-10 Numeric Is Patient Pain Free? Yes Wound debrided: Nonhealing ulcer left lower extremity Laterality: Left Type of Debridement: Excisional debridement Anesthesia Used: 5% Lidocaine Gel Depth: in the subcutaneous layer Percentage of wound debrided: 100 Instrument Used: 5mm curette Tissue Removed: Slough and devitalized tissue Severity: Fat Layer Exposed Amount of bleeding with debridement: Mild Bleeding Controlled with: Pressure Patient tolerated procedure well Assessment/Plan Active Problems (Last Reviewed 12/01/19 @ 12:07 by Jake Nesbitt MD) Chronic renal failure, stage 4 (severe) (Chronic) Chronic steroid use (Chronic) Ulcer of left lower extremity with fat layer exposed (Chronic) mixed venous arterial left posterior calf Assessment: Nonhealing recurrent left lower extremity ulceration secondary to lymphedema. Left anterior lower extremity ulcer. Diabetes mellitus. Plan: The patient was seen and examined at the wound center today and was updated on the plan of care. A subcutaneous debridement was performed today. The patient tolerated the procedure well. The patients wound care will consist of: Application of Epifix was applied today and secured with Adaptic touch and Steri-Strips, covered with Aquacel extra 100% utilized with no wastage and surrounding area was wrapped with a Unna boot for compression and to help with the multiple excoriations. Patient educated on the importance of diet on wound healing and instructed to increase protein and vitamin C intake. Patient verbalized understanding. Patient will follow up at wound healing center in one week or sooner if needed. This note was generated with [employer] software. It may contain incorrect words, spelling, and punctuation that were not noted in checking the note before signing. Code Visit 150xxx-152xx: [id number] Skin sub graft trnk/arm/leg
[2020-01-12 15:44] VITALS: BP 156/69; PULSE 96; RESP 18; TEMP 36.6; BMI 40.0
--- NOTE | 2020-01-13 16:27 | PCM.WC.PN ---
(1) Ulcer of left lower extremity with fat layer exposed Status: Chronic Current Visit: Yes Code(s): L97.922 - Non-pressure chronic ulcer of unspecified part of left lower leg with fat layer exposed Comment: mixed venous arterial left posterior calf (2) UTI (urinary tract infection) Status: Acute Current Visit: No Code(s): N39.0 - Urinary tract infection, site not specified (3) Chronic renal failure, stage 4 (severe) Status: Chronic Current Visit: Yes Code(s): N18.4 - Chronic kidney disease, stage 4 (severe) (4) Chronic steroid use Status: Chronic Current Visit: Yes (5) DM2 (diabetes mellitus, type 2) Status: Chronic Current Visit: No Code(s): E11.9 - Type 2 diabetes mellitus without complications (6) Debility Status: Chronic Current Visit: No Code(s): R53.81 - Other malaise (7) Essential hypertension Status: Chronic Current Visit: No Code(s): I10 - Essential (primary) hypertension (8) Morbid obesity with BMI of 45.0-49.9, adult Status: Chronic Current Visit: No Code(s): E66.01 - Morbid (severe) obesity due to excess calories; Z68.42 - Body mass index (BMI) 45.0-49.9, adult (9) Venous insufficiency of both lower extremities Status: Chronic Current Visit: No Code(s): I87.2 - Venous insufficiency (chronic) (peripheral) Type of Wound Date of Service: 01/12/20 Chief Complaint: Non healing Ulcers History of Wound: Ms Stapleton is a 73-year-old with past medical history as stated above well-known to the wound center and is being managed for chronic venous left lower extremity ulcer. She however now presents with a right lower extremity wound after she was hit by a car door. Was seen as a nurse visit 2 days ago, case was discussed with me and she was advised to apply Fibracol to the wound. Some improvement noted her case resolution specialist/nurse and patient. lining machine tender but denies copious drainage, chills, fever otherwise feeling of unwell. [facility]. She has had 5 applications of Apligraf with some improvement. Did poorly on conservative with management in the past. Progress of Wound: The patient's wound is improved in size, No new concerns at this time, Denies any signs of infection or new concerns at this time. - Physical Exam Vital Signs Temp Pulse Resp BP 97.9 F 96 18 156/69 H 01/12/20 15:44 01/12/20 15:44 01/12/20 15:44 01/12/20 15:44 General: Alert, Oriented x3, Cooperative, No apparent distress HEENT: Atraumatic Oral: Moist Mucosa Lungs: Clear to auscultation Cardiovascular: Regular rate Abdomen: Bowel Sounds Present, Soft Extremities: No clubbing, No cyanosis, Edema - +1 bilateral lower extremity edema Skin: Ulcer/ Wound - See nursing documentation, slough and devitalized tissue present, no signs of infection at this time Wound Measurements and Assessment WC - Nurse 1 - General Ulcer Measurement Start: 01/05/20 16:13 Freq: Status: Active Protocol: Activity Type Activity Date Activity User E-Sign Co-Sign Detail Recorded Client Recorded Date Recorded By Document 01/12/20 15:44 DL [id number] 01/12/20 15:52 DL 01/12/20 15:44 Wound Center Nurse 1 [Ulcer Assessment] #7- LT CALF posterior cluster -Current Size (cm) - Length 0.7 -Current Size (cm) - Width 3 -Current Size (cm) - Depth 0.1 -Total Square Cm 2.1 -Photo Taken No -Exudate Amt Small -Exudate Type Serosanguineous -Wound Margin Indistinct, Non -Visible -Granulation Amt Medium (34-66%) -Granulation Quality [place] -Necrosis Amt Medium (34-66%) -Necrotic Tissue Type Adherent Slough -Structure Exposed N/A -Texture (Cassi-wound Skin Appearance) Scarring -Moisture (Cassi-wound Skin Appearance Dry/Scaly ) -Color (Cassi-wound Skin Appearance) Rubor -Temperature (Cassi-wound Skin No Abnormality Appearance) (Pt Warm) -Tenderness on Palpation (Cassi-wound No Skin Appearance) -Ulcer Cleansing Wound Cleanser -Foul Odor after Cleansing No -Anesthetic Used 5% Lidocaine Gel [Edema Assessment] -Left Calf (cm) 35 -Left Ankle (cm) 20.2 WC - Nurse 2 - General Ulcer CM Notes Start: 01/05/20 16:13 Freq: Status: Active Protocol: Activity Type Activity Date Activity User E-Sign Co-Sign Detail Recorded Client Recorded Date Recorded By Document 01/12/20 16:17 MW [id number] 01/12/20 16:26 MW 01/12/20 16:17 Wound Center Nurse 2 [Procedure/Treatment] #7- LT CALF posterior cluster -Time 16:17 -Correct Patient Yes -Correct Side, Site, Position Yes -Correct Procedure Yes -Procedure Performed Yes -Type of Procedure Debridement -Clinical Debridement Subcutaneous -Post Debridement Size (cm) - Length 1.0 -Post Debridement Size (cm) - Width 2.7 -Post Debridement Size (cm) - Depth 0.1 -Total Square Cm 2.70 -Wound/Ulcer Outcome Not Healed -Ulcer Cleansing Rinsed/ Irrigated with Saline -Foul Odor after Cleansing No -Bioengineered Tissue Yes -Type of bioengineered Tissue EPIFIX -Expiration Date 08/30/24 -Product Lot Number [id number] -Percent Used 100 -Saline Lot Number [id number] -Bleeding Controlled with Pressure -Offloading No -Treatment Response Procedure Tolerated Well [See Physician Procedure note for Specifics] Pain Scale: 0-10 Numeric [Pain] -Is Patient Pain Free? Yes Neurological: Neuro grossly intact Psych/Mental Status: Normal Affect, Appropriate, Alert and oriented to time, place, person, mood and affect Debridement Note Post-Debridement Measurements/Treatment WC - Nurse 2 - General Ulcer CM Notes Start: 01/05/20 16:13 Freq: Status: Active Protocol: Activity Type Activity Date Activity User E-Sign Co-Sign Detail Recorded Client Recorded Date Recorded By Document 01/05/20 16:26 MW [id number] 01/05/20 16:31 MW Document 01/12/20 16:17 MW [id number] 01/12/20 16:26 MW 01/05/20 01/12/20 16:26 16:17 Wound Center Nurse 2 #7- LT CALF posterior cluster -Time 16:27 16:17 -Correct Patient Yes Yes -Correct Side, Site, Position Yes Yes -Correct Procedure Yes Yes -Procedure Performed Yes Yes -Type of Procedure Debridement Debridement -Clinical Debridement Subcutaneous Subcutaneous -Post Debridement Size (cm) - Length 1.5 1.0 -Post Debridement Size (cm) - Width 3.0 2.7 -Post Debridement Size (cm) - Depth 0.1 0.1 -Total Square Cm 4.50 2.70 -Wound/Ulcer Outcome Not Healed Not Healed -Ulcer Cleansing Rinsed/ Rinsed/ Irrigated with Irrigated with Saline Saline -Foul Odor after Cleansing No No -Bioengineered Tissue Yes Yes -Type of bioengineered Tissue EPIFIX EPIFIX -Expiration Date 08/30/24 08/30/24 -Product Lot Number [id number] -Percent Used 100 100 -Saline Lot Number [id number] -Bleeding Controlled with Pressure Pressure -Other EPIFIX 4X4.5 MESH - 11 UNITS -Offloading No No -Type of Offloading Surgical Shoe -Treatment Response Procedure Procedure Tolerated Well Tolerated Well Pain Scale: 0-10 Numeric Is Patient Pain Free? Yes Yes Wound debrided: Left posterior nonhealing ulcer Type of Debridement: Excisional debridement Anesthesia Used: 5% Lidocaine Gel Depth: in the subcutaneous layer Percentage of wound debrided: 100 Instrument Used: 5mm curette Tissue Removed: Slough and devitalized tissue Severity: Fat Layer Exposed Amount of bleeding with debridement: Mild Bleeding Controlled with: Pressure Patient tolerated procedure well Assessment/Plan Active Problems (Last Reviewed 12/01/19 @ 12:07 by Jake Nesbitt MD) Chronic renal failure, stage 4 (severe) (Chronic) Chronic steroid use (Chronic) Ulcer of left lower extremity with fat layer exposed (Chronic) mixed venous arterial left posterior calf Assessment: Nonhealing recurrent left lower extremity ulceration secondary to lymphedema. Left anterior lower extremity ulcer. Diabetes mellitus. Plan: The patient was seen and examined at the wound center today and was updated on the plan of care. A subcutaneous debridement was performed today. The patient tolerated the procedure well. The patients wound care will consist of: Application of Epifix was applied today and secured with Adaptic touch and Steri-Strips, covered with Aquacel extra 100% utilized with no wastage and surrounding area was wrapped with a Unna boot for compression and to help with the multiple excoriations. Patient educated on the importance of diet on wound healing and instructed to increase protein and vitamin C intake. Patient verbalized understanding. Patient will follow up at wound healing center in one week or sooner if needed. This note was generated with [employer] software. It may contain incorrect words, spelling, and punctuation that were not noted in checking the note before signing. Code Visit 150xxx-152xx: [id number] Skin sub graft trnk/arm/leg
[2020-01-19 15:59] VITALS: BP 161/79; PULSE 93; RESP 18; TEMP 36.8; BMI 40.0
--- NOTE | 2020-01-19 17:36 | PCM.WC.PN ---
(1) Ulcer of left lower extremity with fat layer exposed Status: Chronic Code(s): L97.922 - Non-pressure chronic ulcer of unspecified part of left lower leg with fat layer exposed Comment: mixed venous arterial left posterior calf (2) UTI (urinary tract infection) Status: Acute Code(s): N39.0 - Urinary tract infection, site not specified (3) Chronic renal failure, stage 4 (severe) Status: Chronic Code(s): N18.4 - Chronic kidney disease, stage 4 (severe) (4) Chronic steroid use Status: Chronic (5) DM2 (diabetes mellitus, type 2) Status: Chronic Code(s): E11.9 - Type 2 diabetes mellitus without complications (6) Debility Status: Chronic Code(s): R53.81 - Other malaise (7) Essential hypertension Status: Chronic Code(s): I10 - Essential (primary) hypertension (8) Morbid obesity with BMI of 45.0-49.9, adult Status: Chronic Code(s): E66.01 - Morbid (severe) obesity due to excess calories; Z68.42 - Body mass index (BMI) 45.0-49.9, adult (9) Venous insufficiency of both lower extremities Status: Chronic Code(s): I87.2 - Venous insufficiency (chronic) (peripheral) Type of Wound Date of Service: 01/19/20 Chief Complaint: Non healing Ulcers History of Wound: Ms Stapleton is a 73-year-old with past medical history as stated above well-known to the wound center and is being managed for chronic venous left lower extremity ulcer. She however now presents with a right lower extremity wound after she was hit by a car door. Was seen as a nurse visit 2 days ago, case was discussed with me and she was advised to apply Fibracol to the wound. Some improvement noted her case management specialist/nurse and patient. polishing machine tender but denies copious drainage, chills, fever otherwise feeling of unwell. [facility]. She has had 5 applications of Apligraf with some improvement. Did poorly on conservative with management in the past. Progress of Wound: The patient's wound is improved in size, No new concerns at this time, Denies any signs of infection or new concerns at this time. - Physical Exam Vital Signs Temp Pulse Resp BP 98.2 F 93 18 161/79 H 01/19/20 15:59 01/19/20 15:59 01/19/20 15:59 01/19/20 15:59 General: Alert, Oriented x3, Cooperative, No apparent distress HEENT: Atraumatic Oral: Moist Mucosa Lungs: Clear to auscultation, Normal air movement Cardiovascular: Regular rate Abdomen: Soft, Non Tender Extremities: No clubbing, No cyanosis, No edema Skin: Ulcer/ Wound - See nursing documentation, slough and devitalized tissue present, no signs of infection at this time Neurological: Neuro grossly intact Psych/Mental Status: Normal Affect, Appropriate, Alert and oriented to time, place, person, mood and affect Debridement Note Post-Debridement Measurements/Treatment WC - Nurse 2 - General Ulcer CM Notes Start: 01/05/20 16:13 Freq: Status: Active Protocol: Activity Type Activity Date Activity User E-Sign Co-Sign Detail Recorded Client Recorded Date Recorded By Document 01/05/20 16:26 MW [id number] 01/05/20 16:31 MW Document 01/12/20 16:17 MW [id number] 01/12/20 16:26 MW Document 01/19/20 16:14 MW [id number] 01/19/20 16:22 MW 01/05/20 01/12/20 01/19/20 16:26 16:17 16:14 Wound Center Nurse 2 #7- LT CALF posterior cluster -Time 16:27 16:17 16:20 -Correct Patient Yes Yes Yes -Correct Side, Site, Position Yes Yes Yes -Correct Procedure Yes Yes Yes -Procedure Performed Yes Yes Yes -Type of Procedure Debridement Debridement Debridement -Clinical Debridement Subcutaneous Subcutaneous Subcutaneous -Post Debridement Size (cm) - Length 1.5 1.0 1.0 -Post Debridement Size (cm) - Width 3.0 2.7 2.5 -Post Debridement Size (cm) - Depth 0.1 0.1 0.1 -Total Square Cm 4.50 2.70 2.50 -Wound/Ulcer Outcome Not Healed Not Healed Not Healed -Ulcer Cleansing Rinsed/ Rinsed/ Rinsed/ Irrigated with Irrigated with Irrigated with Saline Saline Saline -Foul Odor after Cleansing No No No -Bioengineered Tissue Yes Yes Yes -Type of bioengineered Tissue EPIFIX EPIFIX EPIFIX -Expiration Date 08/30/24 08/30/24 08/30/24 -Product Lot Number [id number] -Percent Used 100 100 100 -Saline Lot Number [id number] -Bleeding Controlled with Pressure Pressure -Other EPIFIX 4X4.5 C.HYDROGEL LOT# MESH - 11 UNITS [id number] -Offloading No No Yes -Type of Offloading Surgical Shoe -Treatment Response Procedure Procedure Procedure Tolerated Well Tolerated Well Tolerated Well Pain Scale: 0-10 Numeric Is Patient Pain Free? Yes Yes Yes Wound debrided: Left lower extremity nonhealing ulcer Laterality: Left Type of Debridement: Excisional debridement Anesthesia Used: 5% Lidocaine Gel Depth: in the subcutaneous layer Percentage of wound debrided: 100 Instrument Used: 5mm curette Tissue Removed: Slough and devitalized tissue Severity: Fat Layer Exposed Amount of bleeding with debridement: Mild Bleeding Controlled with: Pressure Patient tolerated procedure well Assessment/Plan Assessment: Nonhealing recurrent left lower extremity ulceration secondary to lymphedema. Left anterior lower extremity ulcer. Diabetes mellitus. Plan: The patient was seen and examined at the wound center today and was updated on the plan of care. A subcutaneous debridement was performed today. The patient tolerated the procedure well. The patients wound care will consist of: Application of Epifix was applied today and secured with Adaptic touch and Steri-Strips, covered with Aquacel extra 100% utilized with no wastage and surrounding area was wrapped with a Unna boot for compression and to help with the multiple excoriations. Patient educated on the importance of diet on wound healing and instructed to increase protein and vitamin C intake. Patient verbalized understanding. Patient will follow up at wound healing center in one week or sooner if needed. This note was generated with [employer] software. It may contain incorrect words, spelling, and punctuation that were not noted in checking the note before signing. Code Visit 150xxx-152xx: [id number] Skin sub graft trnk/arm/leg
[2020-01-26 15:44] VITALS: BP 135/71; PULSE 94; RESP 18; TEMP 37.2; BMI 40.0
--- NOTE | 2020-01-26 20:42 | PN.PCM_ITS ---
(1) Ulcer of left lower extremity with fat layer exposed Status: Chronic Code(s): L97.922 - Non-pressure chronic ulcer of unspecified part of left lower leg with fat layer exposed Comment: mixed venous arterial left posterior calf (2) UTI (urinary tract infection) Status: Acute Code(s): N39.0 - Urinary tract infection, site not specified (3) Chronic renal failure, stage 4 (severe) Status: Chronic Code(s): N18.4 - Chronic kidney disease, stage 4 (severe) (4) Chronic steroid use Status: Chronic (5) DM2 (diabetes mellitus, type 2) Status: Chronic Code(s): E11.9 - Type 2 diabetes mellitus without complications (6) Debility Status: Chronic Code(s): R53.81 - Other malaise (7) Essential hypertension Status: Chronic Code(s): I10 - Essential (primary) hypertension (8) Morbid obesity with BMI of 45.0-49.9, adult Status: Chronic Code(s): E66.01 - Morbid (severe) obesity due to excess calories; Z68.42 - Body mass index (BMI) 45.0-49.9, adult (9) Venous insufficiency of both lower extremities Status: Chronic Code(s): I87.2 - Venous insufficiency (chronic) (peripheral) Type of Wound Date of Service: 01/26/20 Chief Complaint: Non healing Ulcers History of Wound: Ms Stapleton is a 73-year-old with past medical history as stated above well-known to the wound center and is being managed for chronic venous left lower extremity ulcer. She however now presents with a right lower extremity wound after she was hit by a car door. Was seen as a nurse visit 2 days ago, case was discussed with me and she was advised to apply Fibracol to the wound. Some improvement noted her director case management/nurse and patient. flume tender but denies copious drainage, chills, fever otherwise feeling of unwell. Now approved for [facility] to left lower extremity ulcer. She has had 5 applications of Apligraf with some improvement. Did poorly on conservative with management in the past. Progress of Wound: The patient's wound is improved in size, No new concerns at this time, Denies any signs of infection or new concerns at this time.Patient is not approved for any more Epifix at this time. - Physical Exam Vital Signs Temp Pulse Resp BP 98.9 F 94 18 135/71 H 01/26/20 15:44 01/26/20 15:44 01/26/20 15:44 01/26/20 15:44 General: Alert, Oriented x3, Cooperative, No apparent distress HEENT: Atraumatic Oral: Moist Mucosa Lungs: Clear to auscultation, Normal air movement Cardiovascular: Regular rate Abdomen: Soft Extremities: No clubbing, No cyanosis, Edema - Generalized bilateral lower extremity edema, Peripheral Pulses Normal Skin: Ulcer/ Wound - See nursing documentation, slough and devitalized tissue present, no signs of infection at this time Neurological: Neuro grossly intact Psych/Mental Status: Normal Affect, Appropriate, Alert and oriented to time, place, person, mood and affect Debridement Note Post-Debridement Measurements/Treatment WC - Nurse 2 - General Ulcer CM Notes Start: 01/05/20 16:13 Freq: Status: Active Protocol: Activity Type Activity Date Activity User E-Sign Co-Sign Detail Recorded Client Recorded Date Recorded By Document 01/05/20 16:26 MW [id number] 01/05/20 16:31 MW Document 01/12/20 16:17 MW [id number] 01/12/20 16:26 MW Document 01/19/20 16:14 MW [id number] 01/19/20 16:22 MW Document 01/26/20 16:08 MW [id number] 01/26/20 16:11 MW 01/05/20 01/12/20 01/19/20 16:26 16:17 16:14 Wound Center Nurse 2 #7- LT CALF posterior cluster -Time 16:27 16:17 16:20 -Correct Patient Yes Yes Yes -Correct Side, Site, Position Yes Yes Yes -Correct Procedure Yes Yes Yes -Procedure Performed Yes Yes Yes -Type of Procedure Debridement Debridement Debridement -Clinical Debridement Subcutaneous Subcutaneous Subcutaneous -Post Debridement Size (cm) - Length 1.5 1.0 1.0 -Post Debridement Size (cm) - Width 3.0 2.7 2.5 -Post Debridement Size (cm) - Depth 0.1 0.1 0.1 -Total Square Cm 4.50 2.70 2.50 -Wound/Ulcer Outcome Not Healed Not Healed Not Healed -Ulcer Cleansing Rinsed/ Rinsed/ Rinsed/ Irrigated with Irrigated with Irrigated with Saline Saline Saline -Foul Odor after Cleansing No No No -Bioengineered Tissue Yes Yes Yes -Type of bioengineered Tissue EPIFIX EPIFIX EPIFIX -Expiration Date 08/30/24 08/30/24 08/30/24 -Product Lot Number [id number] -Percent Used 100 100 100 -Saline Lot Number [id number] -Bleeding Controlled with Pressure Pressure -Other EPIFIX 4X4.5 C.HYDROGEL LOT# MESH - 11 UNITS [id number] -Offloading No No Yes -Type of Offloading Surgical Shoe -Treatment Response Procedure Procedure Procedure Tolerated Well Tolerated Well Tolerated Well Pain Scale: 0-10 Numeric Is Patient Pain Free? Yes Yes Yes 01/26/20 16:08 Wound Center Nurse 2 #7- LT CALF posterior cluster -Time 16:09 -Correct Patient Yes -Correct Side, Site, Position Yes -Correct Procedure Yes -Procedure Performed Yes -Type of Procedure Debridement -Clinical Debridement Subcutaneous -Post Debridement Size (cm) - Length 0.5 -Post Debridement Size (cm) - Width 0.5 -Post Debridement Size (cm) - Depth 0.1 -Total Square Cm 0.25 -Wound/Ulcer Outcome Not Healed -Ulcer Cleansing Rinsed/ Irrigated with Saline -Foul Odor after Cleansing No -Bioengineered Tissue No -Type of bioengineered Tissue -Expiration Date -Product Lot Number -Percent Used -Saline Lot Number -Bleeding Controlled with Pressure -Other -Offloading No -Type of Offloading -Treatment Response Procedure Tolerated Well Pain Scale: 0-10 Numeric Is Patient Pain Free? Yes Wound debrided: Nonhealing ulcer left lower extremity Laterality: Left Type of Debridement: Excisional debridement Anesthesia Used: 5% Lidocaine Gel Depth: in the subcutaneous layer Percentage of wound debrided: 100 Instrument Used: 5mm curette Tissue Removed: Slough and devitalized tissue Severity: Fat Layer Exposed Amount of bleeding with debridement: Mild Bleeding Controlled with: Pressure Patient tolerated procedure well Assessment/Plan Assessment: Nonhealing recurrent left lower extremity ulceration secondary to lymphedema. Left anterior lower extremity ulcer. Diabetes mellitus. Plan: The patient was seen and examined at the wound center today and was updated on the plan of care. A subcutaneous debridement was performed today. The patient tolerated the procedure well. The patients wound care will consist of: Application of Aquacel extra and Unna boot for compression and to help with the multiple excoriations. Patient educated on the importance of diet on wound healing and instructed to increase protein and vitamin C intake. Patient verbalized understanding. Patient will follow up at wound healing center in one week or sooner if needed. This note was generated with [employer] dictation software. It may contain incorrect words, spelling, and punctuation that were not noted in checking the note before signing. Code Visit [id number]: [id number] Galina subq tissue 20 sq cm/<
== END 2020-01-28 23:59 ==
LOC: WC 15:30
PROVIDERS: Family Provider Nurse Practitioner; PCP Nurse Practitioner; Referring Provider Internal Medicine; Visit Provider Nurse Practitioner
DX: E11.622 Type 2 diabetes mellitus with other skin ulcer (principal); L97.222 Non-pressure chronic ulcer of left calf with fat layer exposed; E66.01 Morbid (severe) obesity due to excess calories; Z68.42 Body mass index [BMI] 45.0-49.9, adult; I12.9 Hypertensive chronic kidney disease with stage 1 through stage 4 chronic kidney disease, or unspecified chronic kidney disease; E11.22 Type 2 diabetes mellitus with diabetic chronic kidney disease; N18.4 Chronic kidney disease, stage 4 (severe); Z79.52 Long term (current) use of systemic steroids; Z71.3 Dietary counseling and surveillance; I87.2 Venous insufficiency (chronic) (peripheral); R60.0 Localized edema; I89.0 Lymphedema, not elsewhere classified
CPT/HCPCS: 11042; 15271; 29580; Q4186

== ENCOUNTER 2020-02-02 13:24 | Outpatient (RCR) | payer MEDICARE, SELFPAY ==
[2016-12-05 15:47] VITALS: BMI 35.6
[2020-01-29 00:28] VITALS: BP 135/71; PULSE 94; RESP 18; TEMP 37.2
[2020-02-02 15:35] VITALS: BP 151/80; PULSE 113; RESP 18; TEMP 36.9; BMI 40.0
--- NOTE | 2020-02-02 17:58 | PCM.WC.PN ---
(1) Ulcer of left lower extremity with fat layer exposed Status: Chronic Code(s): L97.922 - Non-pressure chronic ulcer of unspecified part of left lower leg with fat layer exposed Comment: mixed venous arterial left posterior calf (2) CHF (congestive heart failure) Status: Acute Code(s): I50.9 - Heart failure, unspecified (3) Atherosclerotic heart disease of [place] coronary artery without angina pectoris Status: Chronic Qualifiers: Code(s): I25.10 - Atherosclerotic heart disease of [place] coronary artery without angina pectoris (4) Chronic renal failure, stage 4 (severe) Status: Chronic Code(s): N18.4 - Chronic kidney disease, stage 4 (severe) (5) Chronic steroid use Status: Chronic (6) DM2 (diabetes mellitus, type 2) Status: Chronic Code(s): E11.9 - Type 2 diabetes mellitus without complications (7) Essential hypertension Status: Chronic Code(s): I10 - Essential (primary) hypertension (8) Morbid obesity with BMI of 45.0-49.9, adult Status: Chronic Code(s): E66.01 - Morbid (severe) obesity due to excess calories; Z68.42 - Body mass index (BMI) 45.0-49.9, adult (9) Venous insufficiency of both lower extremities Status: Chronic Code(s): I87.2 - Venous insufficiency (chronic) (peripheral) Type of Wound Date of Service: 02/02/20 Chief Complaint: Non healing Ulcers History of Wound: Ms Stapleton is a 73-year-old with past medical history as stated above well-known to the wound center and is being managed for chronic venous left lower extremity ulcer. She however now presents with a right lower extremity wound after she was hit by a car door. Was seen as a nurse visit 2 days ago, case was discussed with me and she was advised to apply Fibracol to the wound. Some improvement noted her machine adjuster leader case trim/nurse and patient. lock tender but denies copious drainage, chills, fever otherwise feeling of unwell. Now approved for [facility] to left lower extremity ulcer. She has had 5 applications of Apligraf with some improvement. Did poorly on conservative with management in the past. Progress of Wound: The patient's wound is healed, No new concerns at this time, Denies any signs of infection or new concerns at this time. - Physical Exam Vital Signs Temp Pulse Resp BP 98.4 F 113 H 18 151/80 H 02/02/20 15:35 02/02/20 15:35 02/02/20 15:35 02/02/20 15:35 General: Alert, Oriented x3, Cooperative, No apparent distress HEENT: Atraumatic Oral: Moist Mucosa Lungs: Clear to auscultation, Normal air movement Cardiovascular: Regular rate Abdomen: Soft, Non Tender Extremities: No clubbing, No cyanosis, Edema - Generalized bilateral lower extremity edema Skin: Ulcer/ Wound - See nursing documentation, site is now healed without any signs of infection at this time Neurological: Neuro grossly intact Psych/Mental Status: Normal Affect, Appropriate, Alert and oriented to time, place, person, mood and affect Debridement Note Post-Debridement Measurements/Treatment WC - Nurse 2 - General Ulcer CM Notes Start: 02/02/20 15:35 Freq: Status: Active Protocol: Activity Type Activity Date Activity User E-Sign Co-Sign Detail Recorded Client Recorded Date Recorded By Document 02/02/20 15:54 DV [id number] 02/02/20 15:58 DV 02/02/20 15:54 Wound Center Nurse 2 #7- LT CALF posterior cluster -Time 15:57 -Correct Patient Yes -Correct Side, Site, Position Yes -Correct Procedure No -Procedure Performed No -Post Debridement Size (cm) - Length 0 -Post Debridement Size (cm) - Width 0 -Post Debridement Size (cm) - Depth 0 -Total Square Cm 0 -Wound/Ulcer Outcome Healed- Epithelialized Pain Scale: 0-10 Numeric Is Patient Pain Free? Yes No debridement was completed today Assessment/Plan Assessment: Nonhealing recurrent left lower extremity ulceration secondary to lymphedema. Left anterior lower extremity ulcer. Diabetes mellitus. Plan: The patient was seen and examined at the wound center today and was updated on the plan of care. Her chronic ulcer is now healed and she did well with Unna boot for compression and to help with the multiple excoriations. Patient educated on the importance of diet on wound healing and instructed to increase protein and vitamin C intake. Patient verbalized understanding. She was educated on the importance of compression utilizing either bilateral Tubigrip's or compression stockings. May cover recent healed ulceration with Adaptic and gauze for the next week. She will be discharged from the wound healing center and follow-up As needed. This note was generated with [employer] dictation software. It may contain incorrect words, spelling, and punctuation that were not noted in checking the note before signing. Office Visits / Consults: [id number] OV L3 Est
== END 2020-02-28 23:59 ==
LOC: WC 13:24
PROVIDERS: Family Provider Nurse Practitioner; PCP Nurse Practitioner; Referring Provider Internal Medicine; Visit Provider Nurse Practitioner
DX: Z09 Encounter for follow-up examination after completed treatment for conditions other than malignant neoplasm (principal); E66.01 Morbid (severe) obesity due to excess calories; Z68.42 Body mass index [BMI] 45.0-49.9, adult; I25.10 Atherosclerotic heart disease of native coronary artery without angina pectoris; I13.0 Hypertensive heart and chronic kidney disease with heart failure and stage 1 through stage 4 chronic kidney disease, or unspecified chronic kidney disease; I50.9 Heart failure, unspecified; N18.4 Chronic kidney disease, stage 4 (severe); E11.22 Type 2 diabetes mellitus with diabetic chronic kidney disease; Z79.52 Long term (current) use of systemic steroids; I87.2 Venous insufficiency (chronic) (peripheral)
CPT/HCPCS: 99212; G0463

== ENCOUNTER → 2020-05-02 08:02 | Outpatient (CLI) | payer MEDICARE, SELFPAY ==
[2016-12-05 15:47] VITALS: BMI 35.6
[2020-05-02 08:10] VITALS: BP 140/70; PULSE 109; RESP 18; TEMP 36.9; O2SAT 95; BMI 33.8
[2020-05-02] MEDS: 0.9% Saline Lock 10 ML Syringe IV (08:39)
[2020-05-02 08:53] VITALS: BP 137/71; PULSE 89; RESP 16; TEMP 37.2; O2SAT 96
[2020-05-02 09:53] VITALS: BP 143/68; PULSE 88; RESP 18; TEMP 37.3; O2SAT 95
[2020-05-02 10:53] VITALS: BP 152/68; PULSE 90; RESP 18; TEMP 37.1; O2SAT 95
[2020-05-02 12:08] VITALS: BP 140/71; PULSE 91; RESP 18; TEMP 37.5; O2SAT 94
[2020-05-02] MEDS: Furosemide 20 MG/2 ML VIAL IV (12:13)
== END ==
PROVIDERS: PCP Nurse Practitioner; Referring Provider Nurse Practitioner; Visit Provider Nurse Practitioner
DX: D64.9 Anemia, unspecified (principal)
CPT/HCPCS: 36430; 86850; 86900; 86901; 86920; 86922; J7040; P9016; A4216; J1940

== ENCOUNTER → 2020-05-08 12:05 | Outpatient (CLI) | payer MEDICARE, SELFPAY ==
[2016-12-05 15:47] VITALS: BMI 35.6
[2020-05-02 08:10] VITALS: BMI 33.8
[2020-05-08 12:42] LABS: D-Dimer Quantitative (DVT/PE) 6.15 FEU/ug/m (0.27-0.49)
--- NOTE | 2020-05-08 14:22 | VDLE_ITS ---
Reason For Study: elevated D-Dimer RIGHT LEFT GSV is normal. GSV is normal. CFV is compressible, spontaneous, phasic, CFV is compressible, spontaneous, phasic, competent and demonstrates normal competent, and demonstrates normal augmentation. augmentation. FV is compressible, spontaneous, phasic, FV is compressible, spontaneous, phasic, competent and demonstrates normal competent and demonstrates normal augmentation. augmentation. POP V is compressible, spontaneous, phasic, POP V is compressible, spontaneous, phasic, competent and demonstrates normal competent and demonstrates normal augmentation. augmentation. T/P Trunk is compressible. T/P Trunk is compressible. PTV is compressible. PTV is compressible. RT PerV is compressible. LT PerV is compressible. Procedure Exam performed in department. The exam was abbreviated due to the COVID 19 protocol. The exam was diagnostic. A preliminary report was called and/or faxed to Sonja Feliciano. Interpretation Summary Deep veins of the lower extremities are bilaterally patent and compressible segmentally. There is no evidence of deep vein thrombosis on either side. Valvular competence appears intact within the proximal deep venous systems bilaterally. The great saphenous veins appear bilaterally patent and compressible segmentally. An abbreviated Covid-19 protocol was performed. Ordering Physician: Sonja Feliciano Performed By: Todd Rosenbaum, RVT
== END ==
LOC: LABSPEC 13:35 → VL 13:52
PROVIDERS: PCP Nurse Practitioner; Referring Provider Nurse Practitioner; Visit Provider Nurse Practitioner
DX: R05 Cough (principal); R79.89 Other specified abnormal findings of blood chemistry; M79.662 Pain in left lower leg; M79.661 Pain in right lower leg
CPT/HCPCS: 85379; 93970

== ENCOUNTER → 2020-05-22 10:42 | Outpatient (CLI) | payer MEDICARE, SELFPAY ==
[2016-12-05 15:47] VITALS: BMI 35.6
[2020-05-02 08:10] VITALS: BMI 33.8
--- NOTE | 2020-05-22 10:50 | RAD_ITS ---
STUDY: X-RAY CHEST REASON FOR EXAM: Female, 74 years old. COUGH X COUPLE MONTHS, NO CHEST PAIN TECHNIQUE: PA and lateral views of the chest. COMPARISON: 12/01/2019 FINDINGS: Lungs remain underexpanded, chronic interstitial changes in both lung spaulding again noted with persistent opacification in the right cardiophrenic angle. There has been development of a right pleural effusion since the previous study with likely associated atelectasis or infiltrate. Follow-up recommended to assure resolution. Normal size heart. Stable perihilar prominence likely related to enlarged pulmonary vessels Normal visualized pulmonary arteries. There is atherosclerotic calcification of the aortic arch with tortuosity. There are diffuse degenerative changes of the visualized thoracic spine. There is degenerative osteoarthritis of the bilateral shoulders. There is no demonstrated abnormality of the visualized soft tissue structures of the upper abdomen. RAD/Chest PA and Lateral IMPRESSION: Underexpanded lungs with stable chronic interstitial changes and stable perihilar prominence. Development of a right pleural effusion since the previous study, I suspect there is likely associated atelectasis or infiltrate. Follow-up recommended to assure resolution Electronically Signed: Jose Juan Dobbins MD at 11:17 EDT , Service support ,
== END ==
PROVIDERS: PCP Nurse Practitioner; Referring Provider Nurse Practitioner; Visit Provider Nurse Practitioner
DX: R05 Cough (principal); J90 Pleural effusion, not elsewhere classified
CPT/HCPCS: 71046

== ENCOUNTER → 2020-05-29 14:33 | Outpatient (CLI) | payer MEDICARE, SELFPAY ==
[2016-12-05 15:47] VITALS: BMI 35.6
[2020-05-02 08:10] VITALS: BMI 33.8
[2020-05-29 15:17] LABS: Hemoglobin 8.1 g/dL (12.0-15.0); Mean Corp Hgb Conc 28.9 g/dL (32-36); Mean Corpuscular Hgb 26.6 pg (27.0-32.0); Mean Corpuscular Volume 91.8 fL (81-99); Mean Platelet Vol. 9.2 fl (6.2-12.0); Platelet Count 296 K/mm3 (150-450); RBC Distribution Width CV 19.2 % (11.6-14.6); Red Blood Count 3.05 M/mm3 (4.2-5.4); White Blood Count 10.2 K/mm3 (4.4-11.0)
[2020-05-29 15:36] LABS: Protein, Urine (Random) 61.3 mg/dL (<11.9); Protein:Creat Ratio 1491 mg/g CRE (0-200)
[2020-05-29 16:00] LABS: PTHIN 230.2 pg/mL (18.4-80.1)
[2020-05-29 16:05] LABS: Albumin, Serum 2.7 g/dL (3.2-5.0); BUN 46 mg/dL (7-18); BUN/Creat Ratio 16.8 RATIO (10-20); Calcium,Total 8.6 mg/dL (8.5-10.1); Chloride 102 mmol/L (98-107); Creatinine, Serum 2.73 mg/dL (0.55-1.02); EST Glomerular Filtration Rate 18 mL/min (>60); Est Glom Filt Rate - Afr Amer 22 mL/min (>60); Glucose 116 mg/dL (74-106); Phosphorus 4.8 mg/dL (2.5-4.9); Potassium 3.4 mmol/L (3.5-5.1); Sodium Level 139 mmol/L (136-145)
[2020-05-29 16:47] LABS: Vitamin D,25 Hydroxy > 150.0 ng/mL (29.95-100.01)
== END ==
PROVIDERS: PCP Nurse Practitioner; Referring Provider Internal Medicine Nephrology; Visit Provider Internal Medicine Nephrology
DX: E11.22 Type 2 diabetes mellitus with diabetic chronic kidney disease (principal); N18.4 Chronic kidney disease, stage 4 (severe); N25.81 Secondary hyperparathyroidism of renal origin; D50.9 Iron deficiency anemia, unspecified; E55.9 Vitamin D deficiency, unspecified
CPT/HCPCS: 36415; 80069; 82306; 82570; 83970; 84156; 85027

== ENCOUNTER → 2020-06-05 14:11 | Outpatient (CLI) | payer MEDICARE, SELFPAY ==
[2016-12-05 15:47] VITALS: BMI 35.6
[2020-05-02 08:10] VITALS: BMI 33.8
[2020-06-05 15:38] LABS: Hematocrit 30.7 % (37-47); Hemoglobin 8.7 g/dL (12.0-15.0); Mean Corp Hgb Conc 28.3 g/dL (32-36); Mean Corpuscular Hgb 26.4 pg (27.0-32.0); Mean Platelet Vol. 9.2 fl (6.2-12.0); POSITIVE MORPHOLOGY YES; Platelet Count 275 K/mm3 (150-450); RBC Distribution Width CV 19.2 % (11.6-14.6); RBC Distribution Width SD 65.1 fl (35.1-43.9); White Blood Count 9.4 K/mm3 (4.4-11.0)
[2020-06-05 15:39] LABS: Scan Indicated on CBC? Y/N YES- FLAGS NOTED
[2020-06-05 16:12] LABS: Differential Comment SCANNED
== END ==
PROVIDERS: PCP Nurse Practitioner; Visit Provider Internal Medicine Nephrology
DX: D50.9 Iron deficiency anemia, unspecified (principal)
CPT/HCPCS: 36415; 85027

== ENCOUNTER → 2020-06-12 16:18 | Outpatient (CLI) | payer MEDICARE, SELFPAY ==
[2016-12-05 15:47] VITALS: BMI 35.6
[2020-05-02 08:10] VITALS: BMI 33.8
--- NOTE | 2020-06-12 16:21 | RAD_ITS ---
STUDY: X-RAY CHEST REASON FOR EXAM: Female, 74 years old. Preoperative eval, Hx pleural effusion TECHNIQUE: Frontal and lateral views of the chest. COMPARISON: 05/22/2020. FINDINGS: Normal lung volumes. Stable probable fibrosis and possibly mild congestion. No focal infiltrates. No effusions. There is mild cardiac enlargement. Normal mediastinum and lalit. Normal visualized pulmonary arteries. There is atherosclerotic calcification of the aortic arch with tortuosity. There are diffuse degenerative changes of the visualized thoracic spine. Normal visualized ribs, clavicles, and shoulders. There is no demonstrated abnormality of the visualized soft tissue structures of the upper abdomen. RAD/Chest PA and Lateral IMPRESSION: No evidence for acute chest disease. Possible mild fibrosis and/or mild congestion. No effusions. Electronically Signed: Paddy Tracy MD at 23:53 EDT , Service support ,
== END ==
PROVIDERS: PCP Nurse Practitioner; Referring Provider Nurse Practitioner; Visit Provider Nurse Practitioner
DX: Z01.818 Encounter for other preprocedural examination (principal)
CPT/HCPCS: 71046

== ENCOUNTER 2020-07-02 06:00 | Day surgery (SDC) | payer MEDICARE, SELFPAY ==
[2016-12-05 15:47] VITALS: BMI 35.6
[2020-05-02 08:10] VITALS: BMI 33.8
[2020-06-26 10:33] VITALS: BMI 32.7
[2020-06-26 19:52] LABS: Probe Check PASS; Specimen Processing Control PASS
[2020-06-30 08:15] LABS: Hematocrit 32.3 % (37-47); Hemoglobin 9.7 g/dL (12.0-15.0); Mean Corpuscular Hgb 27.9 pg (27.0-32.0); Mean Corpuscular Volume 92.8 fL (81-99); Platelet Count 196 K/mm3 (150-450); RBC Distribution Width CV 18.1 % (11.6-14.6); RBC Distribution Width SD 60.6 fl (35.1-43.9); Red Blood Count 3.48 M/mm3 (4.2-5.4); White Blood Count 9.1 K/mm3 (4.4-11.0)
[2020-06-30 08:26] LABS: Partial Thromboplast Time 31.3 Seconds (24.1-36.2)
[2020-06-30 08:38] LABS: Hemoglobin A1c 4.7 % (3.8-5.6)
[2020-06-30 09:39] LABS: ALB/GLOB Ratio 0.8 RATIO (0.9-2.4); AST(SGOT) 18 U/L (15-37); Alanine Aminotransfer ALT/SGPT 9 U/L (13-56); Albumin, Serum 3.2 g/dL (3.2-5.0); Alkaline Phosphatase 137 U/L (45-117); Anion Gap 5 (5-15); BUN 23 mg/dL (7-18); BUN/Creat Ratio 10.7 RATIO (10-20); Calcium,Total 9.1 mg/dL (8.5-10.1); Chloride 109 mmol/L (98-107); Creatinine, Serum 2.15 mg/dL (0.55-1.02); EST Glomerular Filtration Rate 24 mL/min (>60); Est Glom Filt Rate - Afr Amer 29 mL/min (>60); Globulin 4.1 g/dL (2.2-4.2); Glucose 102 mg/dL (74-106); Potassium 3.6 mmol/L (3.5-5.1); Protein, Total 7.3 g/dL (6.4-8.2); Sodium Level 140 mmol/L (136-145)
--- NOTE | 2020-07-01 19:25 | HP.PCM_ITS ---
History and Physical Date of Admission: 07/02/20 Surgical History and Physical Hiral Stapleton, a 74 year old female 2 0 0 0 2, presents for AP Repair; TVT per Dr. Yanez on July 02, 2020 at 7:30. -- Cystocele and Rectocele; GSUI -- Presents with c/o protrusion from vagina which has worsened over the past 8 months along with incontinence. Hysterectomy for benign mass in 2010 at [facility]. Known DM, HTN, arthritis. Tried a pessary but unsuccessful. Hiral claims prolapse xs started gradually and has been present and worsening in the last several months. It occurs all the time. It is located in the vagina. Hiral characterizes the quality moderate urinary incontinence. Prolapse severity is moderate and not improving. MEDICATIONS HISTORY: Patient is also takin. Vitamin D2 1,250 mcg (50,000 unit) capsule, one pill by mouth twice a week 2. Aspir-81 81 mg tablet,delayed release 3. clonidine HCl 0.3 mg tablet, PRN 4. simvastatin 20 mg tablet 5. allopurinol 300 mg tablet, One pill by mouth once a day 6. amlodipine 10 mg tablet, One pill by mouth once a day 7. hydroxychloroquine 200 mg tablet, One pill by mouth once a day 8. Lasix 20 mg tablet, One pill by mouth once a day 9. potassium chloride ER 10 mEq capsule,extended release, One pill by mouth once a day 10. Lantus U-100 Insulin 100 unit/mL subcutaneous solution, 8 Units ALLERGIES: NKDA, Hydromorphone, Hives and/or rash, Cefepime, Hives and/or rash, Cephalexin and Hives and/or rash Infections - sepsis, 2018 Illnesses - HTN, arthritis and DM Accidents - no injuries of consequence Hospitalizations - see surgery and history of PE in 2008 hx: lungs--blood clots ' and venous ulcer; Review of Systems: GENERAL - Denies fever, or chills SKIN - Denies skin changes EYES - Denies visual changes EARS - Denies difficulty hearing NOSE - Denies nasal congestion or bleeding MOUTH - Denies sore throat or difficulty swallowing NECK - Denies pain or swelling RESPIRATORY - Denies shortness of breath or wheezing CARDIOVASCULAR - Denies palpitations or chest pain GASTROINTESTINAL - Denies nausea, vomiting, diarrhea, constipation GENITOURINARY - Denies dysuria, frequency of urination, incontinence of urine MUSCULOSKELETAL - Denies joint or muscle pain NEUROLOGICAL - Denies localized numbness or weakness PSYCHIATRIC - Denies depression or anxiety ENDOCRINE - Denies heat or cold intolerance, weight loss or gain HEMATO-IMMUNOLOGIC - Denies excessive bleeding with cuts SOCIAL HISTORY: Alcohol Use - denies drinking Smoking - denies smoking Diet - no particular diet Lifestyle - moderate stress lifestyle and Exercise - active Seat Belt Use - always Employer - Retired Illicit Drug Use - denies use of street drugs Sexual Activity - Spouse-Sig Other Name - na Children Name(s) - Shavon Hicks Control - Prior Hysterectomy FAMILY HISTORY: Father: diabetes and HTN. MENSTRUAL HISTORY: LMP Known?- Prior Hysterectomy PAST PREGNANCIES: Total Pregnancies - 2; Full Term Pregnancies - 2; Premature - 0; Abortions, Induced - 0; Abortions, Spontaneous - 0; Ectopics - 0; Multiple Births - 0; Living Children - 2 SURGICAL HISTORY: 1. R rotator Cuff 03/2009 ; - fall 2. Tubal 3. hysterectomy - 2010 PHYSICAL EXAM BP- 130/64 Sitting, Right arm, large cuff Temp- 97.7 Taken Orally Weight- 179.91725 lbs Height- 62.50 inch BMI:32.29 CONSTITUTIONAL - NAD, well nourished, and well developed and obese SKIN - No rash, lesions, or ulcers and dark discoloration from blood thinners years ago HEENT - Normocephalic, PERRLA, EOMI NECK - No nodes, no nuchal rigidity and thyroid normal size and texture LYMPH NODES - Palpation of lymph nodes in neck and groins within normal limits LUNGS - CTA x2 without wheezes, crackles or rales CARDIAC - grade 3/6 systolic murmur BREAST - No dominant masses, no tenderness, no axillary adenopathy, no nipple discharge, no skin changes EXTREMITIES - edematous left>right NEUROLOGICAL - Cranial nerves II-XII grossly intact PSYCHIATRIC - A and O to time, place, person, mood and affect External Genitial Vagina - dry and skin not stretching well Urethra/Urethral Meatus - non-tender Bladder - continued severe cystocele and BATSHEVA noted with cough Vagina - loss of rugae and cystocele 2 cm outside introitus; rectocele 1 cm outside introitus Cervix - Prior hysterectomy-well healed vaginal cuff Uterus - prior hysterectomy-absent Adnexa - exam limited by habitus ASSESSMENT/PLAN: 1. Cystocele, midline and Rectocele Discussed options and pt desires to proceed with surgery. Plan AP Repair and TVT per Dr. Yanez. Discussed surgery at length along with RBAs. Hhistory of stent placement, pulmonary embolism 2 years ago, and loud murmur. Has medical clearance.
[2020-07-02] VITALS (13 sets, daily range): BP systolic 124–149; BP diastolic 54–81; PULSE 77–93; RESP 16–22; TEMP 36.4–37.2; O2SAT 88–98; BMI 32.4
--- NOTE | 2020-07-02 | VAGMU_PTH ---
PATIENT: DEVORAH ALLAN LOC: [facility] U#:[id number] AGE/SX: 74/F ROOM: RE07/02/[address]: Dr. Rayray Anderson MD : 1945 BED: DIS: 07/03/2020 SPEC #: [id number] RECD: 07/02/20 10:47 STATUS: HARDIK OSMIN #: [id number] HSERITA: 07/02/20 00:[address]: Rayray Anderson DEPT: SURGICAL PATHOLOGY RECD BY: Zion Ortega ENTERED: 07/02/20 10:47 SP TYPE: VAG MUCOSA OT DR: MD Sonja Mathews, OPTOMETRIST PRESIDENT/PRACTICE OWNER-C Tissues: Vagina, NOS Procedures: Surgery Specimen Level III HEADER OPERATION: Anterior and posterior repair PRE-OP DIAGNOSIS: Cystocele, mid and rectocele TISSUE SUBMITTED: Vaginal mucosa MICROSCOPIC DIAGNOSIS Vaginal mucosa, anterior and posterior repair: Minimal chronic inflammation. No evidence of dysplasia. AM:roland 07/03/20 MICROSCOPIC DESCRIPTION Slides are reviewed. GROSS DESCRIPTION Received in fixative is one container labeled with the patient's name and designated vaginal mucosa. The specimen consists of seven variable sized pieces of lopez mucosal tissue measuring in aggregate 8 x 3.5 x 0.5 cm. No mucosal lesion is identified. Numerous instrumentation jose are noted. [facility] sections are submitted in one cassette. / SJ:roland 07/02/20 TC:3 CPT: 08124
[2020-07-02 06:21] LABS: Bedside Glucose 113 mg/dL (70-110)
[2020-07-02] MEDS: Lactated Ringers 1,000 ML 100 ML IV (06:38)
[2020-07-02] MEDS: Heparin Injection 5,000 UNITS/ML Syringe 5000 UNITS SC (06:42)
--- NOTE | 2020-07-02 07:57 | PCM.PN.BLA ---
Progress Note 74-year-old female with multiple medical problems were planning for sling placement for incontinence however her urine is frankly infected today so high risk that the sling will get infected and be lead to more surgical complications at this point I am not going to put the sling in. STROKE Vital Signs/Narrative: Vital Signs Temp Pulse Resp BP Pulse Ox 07/02/20 06:23 98.2 F 82 16 148/81 H 97
[2020-07-02] MEDS: Lactated Ringers 1,000 ML 125 ML IV ×2 (08:45→18:55)
--- NOTE | 2020-07-02 09:31 | PCM.OPRPT ---
Report of Operation Date of Procedure: 07/02/20 Pre-Operative Diagnosis: Cystocele, Rectocele, Stress Urinary Incontinence Post-Operative Diagnosis: Cystocele, Rectocele, Stress Urinary Incontinence, Pyuria Surgery/Procedure Performed:: Anterior Posterior Repair Description of Surgical Findings:: Cystocele which protruded to the introitus and extremely large rectocele protruding to the introitus. Pyuria noted with insertion of Dyer catheter. assistant laboratory director: Mark Jefferson Type of Anesthesia:: General - Endotracheal Anesthesiologist: Theodore Kohli Specimen's removed: Vaginal mucosa Drains: Dyer to straight drain Estimated Blood Loss (mL): 100 cc Fluids Replaced: Crystalloid Description of Procedure: Surgeon: Rayray Anderson MD, FACOG Indications: This is a 74-year-old patient who is been having problems with prolapse symptoms from a large cystocele and rectocele as well as stress urinary incontinence. Conservative measures including a pessary have not been helpful. Given this the patient desires that we proceed the above procedure. She has been counseled regarding the risk and indications of this procedure including the possibility of bleeding, infection, and injury to surrounding structures such as bowel bladder. All questions were answered. Procedure: Patient was taken to the operating room where after induction of general anesthesia she was placed in the dorsal lithotomy position and prepped and draped in the usual sterile fashion. The bladder was drained of approximately 50 cc of pussy urine with a Dyer catheter. This urine was sent for C and S. At this point in the procedure Dr. Yanez decided that a transvaginal tape sling would not be placed due to risk of the sling becoming infected. Angles of the vaginal cuff were grasped with Allises and anterior vaginal mucosa was undermined and divided and then imbricated toward the midline with interrupted 0 Vicryl sutures. Vaginal mucosa was trimmed and then closed with interrupted 2-0 chromic suture. Vaginal cuff was then closed front to back with interrupted [id number] 0 Vicryl suture. Hemostasis was noted. Attention was turned toward the posterior repair portion of the procedure. Remnants of the hymenal ring were grasped with Allises and a V-shaped incision was made in the perineum. Rectovaginal mucosa was then undermined divided and then imbricated toward the midline with interrupted 0 Vicryl suture. Vaginal mucosa was trimmed and then closed with running locked 2-0 chromic suture. Remnants of the bulbocavernosus muscles were identified and brought toward the midline with a single [id number] 0 Vicryl suture and perineum was closed in the usual fashion with running and subcuticular, and [id number] 2-0 chromic suture. Hemostasis was noted. Dyer catheter was placed and pussy and then clear yellow urine was noted. Vagina was packed with half-inch iodoform tape. Patient tolerated the procedure well was taken to recovery room in satisfactory condition; sponge instrument and needle counts were all reportedly correct. Estimated blood loss for the case was 100 cc. Cefotan 2 g IV was given prior to beginning the operative procedure. There were no apparent complications of the surgery. Grafts/Implants Used: None - Complications None - Admit VTE Documentation VTE Present on Admission: Yes - Chronic ulcers on calves; heparin sq given VTE Mechan Device Prophylaxis: None - sq heparin given pre-op VTE Pharm Prophylaxis ordered?: Yes
--- NOTE | 2020-07-02 09:45 | DCINST_ITS ---
Discharge Diet: No Restrictions Discharge Activity: Return to Normal Activity, May Not Drive - while taking narcotic pain medications., May Shower May resume sexual activity in: 6-8 weeks Call your doctor if your incision/area has: Continuous Slow Oozing, Sudden Increased Bleeding, Increased Pain/ Swelling, Increased Redness, Foul Smelling Discharge Call your doctor if you observe: Fever of 101 or Higher, Inability to urinate, Inability to have a bowel movement, Using more than one pad per hour Allergies/Adverse Reactions: Allergies cefepime HCl [From Maxipime] Allergy (Verified 07/02/20 06:21) Itching cephalexin monohydrate [From Keflex] Allergy (Verified 07/02/20 06:21) Hives clopidogrel [From Plavix] Allergy (Verified 07/02/20 06:21) Itching and hives all over piperacillin [From Zosyn] Allergy (Verified 07/02/20 06:21) Hives tazobactam [From Zosyn] Allergy (Verified 07/02/20 06:21) Hives ciprofloxacin [From Cipro] Adverse Reaction (Verified 07/02/20 06:21) Itching hydromorphone HCl [From Dilaudid] Adverse Reaction (Verified 07/02/20 06:21) Itching Medications to take at Discharge Allopurinol 300 mg PO DAILY 10/16/18 Aspirin [Aspirin, Baby] 81 mg PO DAILY@0800 10/16/18 Hydroxychloroquine [Plaquenil] 200 mg PO QHS 10/16/18 Insulin Glargine,Hum.rec.anlog [Lantus] 8 unit SQ QHS 10/16/18 simvastatin 40 mg tablet 20 mg PO QHS tab 09/05/19 Potassium Chloride 10 meq PO DAILY 05/02/20 furosemide 40 mg tablet 20 mg PO DAILY #60 tab 06/06/20 amlodipine 5 mg tablet 5 mg PO QHS #90 tab 06/26/20 tramadol 50 mg tablet mg PO PRN 06/26/20 Primary Care Physician: Sonja Feliciano NP-C [Primary Care Provider] - Test Results: Test results from this visit will be discussed in further detail at your follow- up appointment, if applicable. Please Follow Up With: Rayray Anderson MD When: 2-3 weeks
[2020-07-02 10:00] LABS: Bedside Glucose 113 mg/dL (70-110)
--- NOTE | 2020-07-02 13:09 | PCM.PROGNOTE ---
<Angi Alvarado - Last Filed: 07/02/20 13:26> Subjective: Patient seen and examined. Patient underwent anterior-posterior repair of cystocele, rectocele today by Dr. Anderson. Reports mild discomfort. Denies other current symptoms or complaints. - Physical Exam Vitals/I&O's: Vital Signs Temp Pulse Resp BP Pulse Ox 98.0 F 80 16 136/57 H 94 07/02/20 13:01 07/02/20 13:01 07/02/20 13:01 07/02/20 13:01 07/02/20 13:01 Oxygen Flow Rate (L/min) 1.5 Oxygen Delivery Method Room Air Weight: 177 lb 4.026 oz Body Mass Index (BMI) 32.4 Finger Stick Blood Glucose 113 Intake and Output for Last 24 Hours 06/30/20 07/01/20 07/02/20 23:59 23:59 23:59 Intake Total 1300 / 1300 Output Total 110 / 110 Balance 1190 / 1190 General: Alert, Oriented x3, Cooperative HEENT: Atraumatic, PERRLA, EOMI, Normocephalic Neck: Supple, No JVD, Negative Carotid Bruits Lungs: Clear to auscultation, Normal air movement Cardiovascular: Regular rate, No murmurs Abdomen: Bowel Sounds Present, Soft, Non Tender Extremities: No edema, Capillary Refill Less than 3 Seconds Skin: No rashes, No breakdown Musculoskeletal: No Tenderness to Palpation of Joints or Extremities Neurological: Cranial nerves II-XII grossly intact, Neuro grossly intact Psych/Mental Status: Normal Affect, Appropriate Laboratory Results 07/02/20 06:17: POC Glucose 113 H 07/02/20 09:56: POC Glucose 113 H Current Medications Acetaminophen (Tylenol) 1,000 mg PO Q8H PRN PRN PRN Reason: Pain Score 1-3/10 or Fever Amlodipine Besylate (Norvasc) 5 mg PO QHS [facility] Aspirin (Aspirin, Baby) 81 mg PO DAILY@0800 [facility] Atorvastatin Calcium (Lipitor) 10 mg PO QHS [facility] Docusate Sodium (Colace) 100 mg PO BID PRN PRN PRN Reason: CONSTIPATION Furosemide (Lasix) 20 mg PO DAILY [facility] Heparin Sodium (Porcine) (Heparin Na) 5,000 unit SC Q8 [place] Hydromorphone HCl (Dilaudid Inj) 0.5 mg IV Q3H PRN PRN PRN Reason: 4-10/10 ON PAIN SCALE Hydroxychloroquine Sulfate (Plaquenil) 200 mg PO QHS [facility] Lactated Ringer's () 1,000 mls @ 125 mls/hr IV .Q8H [facility] Last Admin: 07/02/20 08:45 Dose: 125 mls/hr Documented by: Cefotetan Disodium 1 gm/ (Sodium Chloride) 50 mls @ 100 mls/hr IV Q12H [facility] Stop: 07/02/20 19:59 Sodium Chloride () 250 mls @ 15 mls/hr IV .[id number] PRN PRN Reason: Saline Flush Sodium Chloride () 250 mls @ 15 mls/hr IV .[id number] PRN PRN Reason: Additional IVPB Infusion Insulin Glargine (Lantus (Bkc)) 8 units SC QHS [facility] Ondansetron HCl (Zofran) 4 mg IV Q4H PRN PRN PRN Reason: NAUSEA Oxycodone HCl (Oxyir) 5 mg PO Q4H PRN PRN PRN Reason: Pain Score 4-10/10 Potassium Chloride (K-Dur) 10 meq PO DAILYCM [facility] Simethicone (Mylicon) 80 mg PO PCHS [facility] Last Admin: 07/02/20 12:58 Dose: 80 mg Documented by: Sodium Chloride () 10 - 40 ml IV UD PRN PRN Reason: SALINE FLUSH Medical Necessity - Tobacco Use Smoking Status: Never smoker Tobacco Use: Non-smoker Assessment/Plan All Active Problems (Last Reviewed 06/26/20 @ 13:38 by MISTY Suh) CHF (congestive heart failure) (Acute) Elevated d-dimer (Acute) UTI (urinary tract infection) (Acute) Gastroenteritis (Resolved) Acute cystitis (Acute) Cellulitis (Resolved) Sepsis (Resolved) DILCIA (acute kidney injury) (Resolved) Afib (Resolved) Chronic ulcer of left leg with fat layer exposed (Resolved) DVT (deep venous thrombosis) (Resolved) Nonhealing ulcer of left lower extremity with fat layer exposed (Resolved) Pulmonary emboli (Resolved) Severe sepsis (Resolved) UTI (urinary tract infection) (Resolved) Venous stasis ulcer of leg without varicose veins (Resolved) Wound abscess (Resolved) Chronic articular rheumatism (Ruled-out) Chronic foot ulcer (Ruled-out) Pyoderma gangrenosum (Ruled-out) 1. Status post anterior posterior repair cystocele, rectocele by Dr. Anderson with marketed pyuria-management per [employer]. Previously planned for sling placement for incontinence however urine was infected appearing and this procedure was placed on hold. Urine culture pending. Will begin empiric antibiotics pending urine culture. 2. Type 2 diabetes mellitus with diabetic ygrthycsemh-Jaff-[id number] with sliding scale insulin. Continue home insulin regimen. 3. Chronic normocytic anemia-stable, trend CBC. 4. Chronic kidney disease stage III-stable, trend BMP. 5. CAD with history of PTCA/EDGARDO-continue aspirin, statin. 6. Rheumatoid arthritis-on Plaquenil. 7. Paroxysmal atrial fibrillation-not on anticoagulation or rate control regimen. 8. History of DVT/PE-no longer on anticoagulation. 9. Hypertension-stable, continue amlodipine, Lasix. 10. Hyperlipidemia-continue statin. 11. Gout-on allopurinol. DVT prophylaxis- heparin sc This patient was seen by CRISTIAN Lin under the supervision of Dr. Adams. <Jose Rafael Adams F - Last Filed: 07/02/20 15:10> - Physical Exam Vitals/I&O's: Vital Signs Temp Pulse Resp BP Pulse Ox 98.8 F 88 16 142/60 H 93 07/02/20 15:00 07/02/20 15:00 07/02/20 15:00 07/02/20 15:00 07/02/20 15:00 Oxygen Flow Rate (L/min) 1.5 Oxygen Delivery Method Room Air Weight: 177 lb 4.026 oz Body Mass Index (BMI) 32.4 Finger Stick Blood Glucose 113 Intake and Output for Last 24 Hours 06/30/20 07/01/20 07/02/20 23:59 23:59 23:59 Intake Total 1300 / 1300 Output Total 110 / 110 Balance 1190 / 1190 Laboratory Results 07/02/20 06:17: POC Glucose 113 H 07/02/20 09:56: POC Glucose 113 H Current Medications Acetaminophen (Tylenol) 1,000 mg PO Q8H PRN PRN PRN Reason: Pain Score 1-3/10 or Fever Amlodipine Besylate (Norvasc) 5 mg PO QHS [facility] Aspirin (Aspirin, Baby) 81 mg PO DAILY@0800 [facility] Atorvastatin Calcium (Lipitor) 10 mg PO QHS [facility] Docusate Sodium (Colace) 100 mg PO BID PRN PRN PRN Reason: CONSTIPATION Furosemide (Lasix) 20 mg PO DAILY [facility] Heparin Sodium (Porcine) (Heparin Na) 5,000 unit SC Q8 [facility] Last Admin: 07/02/20 15:02 Dose: 5,000 unit Documented by: Hydromorphone HCl (Dilaudid Inj) 0.5 mg IV Q3H PRN PRN PRN Reason: 4-10/10 ON PAIN SCALE Hydroxychloroquine Sulfate (Plaquenil) 200 mg PO QHS [facility] Lactated Ringer's () 1,000 mls @ 125 mls/hr IV .Q8H [facility] Last Admin: 07/02/20 08:45 Dose: 125 mls/hr Documented by: Cefotetan Disodium 1 gm/ (Sodium Chloride) 50 mls @ 100 mls/hr IV Q12H [facility] Stop: 07/02/20 19:59 Sodium Chloride () 250 mls @ 15 mls/hr IV .[id number] PRN PRN Reason: Saline Flush Sodium Chloride () 250 mls @ 15 mls/hr IV .[id number] PRN PRN Reason: Additional IVPB Infusion Insulin Glargine (Lantus (Bkc)) 8 units SC QHS [facility] Ondansetron HCl (Zofran) 4 mg IV Q4H PRN PRN PRN Reason: NAUSEA Oxycodone HCl (Oxyir) 5 mg PO Q4H PRN PRN PRN Reason: Pain Score 4-10/10 Pot[facility] ([facility] Simethicone (Mylicon) 80 mg PO PCHS [facility] Last Admin: 07/02/20 12:58 Dose: 80 mg Documented by: Sodium Chloride () 10 - 40 ml IV UD PRN PRN Reason: SALINE FLUSH Addendum: Dr. Adams I personally examined the patient and reviewed the chart. I agree with the above. 74-year-old female underwent repair of a cystocele and rectocele today by Dr. Anderson with assistance by Dr. Yanez. We are consulted to assist in medical management. She has a history of rheumatoid arthritis, paroxysmal A. fib with a history of a DVT and had an IVC filter placed. She also has type 2 diabetes, hypertension, hyperlipidemia. Her chronic medical illnesses are stable and she has not had any changes to her recent medications. Does have a history of cardiac stent, this was in 2017 therefore it is okay to hold off on the aspirin for a little bit postoperatively. Otherwise can resume all of her home medications. There was some pyuria during her procedure today however she states that she has been asymptomatic and has not noticed any burning with her urination, given the polymicrobial infection she has had in the past in her urine as well with the long list of things she is allergic to, we will monitor her white count and make sure she is remains afebrile and await culture data prior to initiating treatment. Inpatient E&M: [id number] [facility] L3
[2020-07-02] MEDS: Heparin Injection (Vial) 5,000 UNIT/ML VIAL 5000 UNIT SC ×2 (15:02→22:03)
[2020-07-02 16:30] LABS: Bedside Glucose 98 mg/dL (70-110)
[2020-07-02] MEDS: Acetaminophen 500 MG Tablet 1000 MG PO (19:53)
[2020-07-02] MEDS: oxyCODONE 5 MG Tablet PO (22:03)
[2020-07-02] MEDS: Hydroxychloroquine 200 MG Tablet PO (22:05)
[2020-07-02] MEDS: amLODIPine 5 MG Tablet PO (22:05)
[2020-07-02] MEDS: Atorvastatin Calcium 10 MG Tablet PO (22:05)
[2020-07-02 23:06] LABS: Bedside Glucose 123 mg/dL (70-110)
[2020-07-03 01:59] VITALS: BP 109/56; PULSE 74; RESP 20; TEMP 37; O2SAT 95
[2020-07-03] MEDS: oxyCODONE 5 MG Tablet PO ×2 (02:03→07:19)
[2020-07-03 05:15] LABS: Hematocrit 29.7 % (37-47); Mean Corp Hgb Conc 30.3 g/dL (32-36); Mean Corpuscular Volume 92.5 fL (81-99); Mean Platelet Vol. 10.2 fl (6.2-12.0); Platelet Count 161 K/mm3 (150-450); RBC Distribution Width CV 18.2 % (11.6-14.6); RBC Distribution Width SD 61.9 fl (35.1-43.9); Red Blood Count 3.21 M/mm3 (4.2-5.4); White Blood Count 11.7 K/mm3 (4.4-11.0)
[2020-07-03 05:29] LABS: Creatinine, Serum 2.05 mg/dL (0.55-1.02); EST Glomerular Filtration Rate 25 mL/min (>60); Est Glom Filt Rate - Afr Amer 30 mL/min (>60); Estimated Creatinine Clearance 19.33 ml/min
[2020-07-03] MEDS: Heparin Injection (Vial) 5,000 UNIT/ML VIAL 5000 UNIT SC (06:02)
[2020-07-03 06:09] VITALS: BP 129/54; PULSE 80; RESP 20; TEMP 36.6; O2SAT 95
[2020-07-03 06:45] LABS: Bedside Glucose 82 mg/dL (70-110)
[2020-07-03 07:01] LABS: Bedside Glucose 65 mg/dL (70-110)
[2020-07-03 07:08] VITALS: O2SAT 95
[2020-07-03] MEDS: Aspirin 81 MG TAB.CHEW PO (07:41)
[2020-07-03 07:55] LABS: Bedside Glucose 89 mg/dL (70-110)
--- NOTE | 2020-07-03 08:08 | PCM.PN.OB ---
Subjective: Patient without complaints except for some lower back pain. Minimal vaginal bleeding. Discussed surgery and pyuria. Discussed that sling was not placed but good repair was obtained by the AP repair. Pain well controlled. Objective: Vaginal pack out and minimal vaginal bleeding noted. Good urine output. Hemoglobin okay. - Physical Exam Vitals/I&O's: Vital Signs Temp Pulse Resp BP Pulse Ox 98 F 80 20 H 129/54 H 95 07/03/20 06:09 07/03/20 06:09 07/03/20 06:09 07/03/20 06:09 07/03/20 07:08 Oxygen Flow Rate (L/min) 1 Oxygen Delivery Method Nasal Cannula Weight: 177 lb 4.026 oz Body Mass Index (BMI) 32.4 Finger Stick Blood Glucose 113 Intake and Output for Last 24 Hours 07/01/20 07/02/20 07/03/20 23:59 23:59 23:59 Intake Total 2754.17 / 3104.17 1147.92 / 1147.92 Output Total 760 / 1385 1075 / 1075 Balance 1994.17 / 1719.17 72.92 / 72.92 Laboratory Results 07/02/20 09:56: POC Glucose 113 H 07/02/20 16:21: POC Glucose 98 07/02/20 22:01: POC Glucose 123 H 07/03/20 05:00: WBC 11.7 H, RBC 3.21 L, Hgb 9.0 L, Hct 29.7 L, MCV 92.5, MCH 28.0, MCHC 30.3 L, RDW Std Deviation 61.9 H, RDW Coeff of Raymond 18.2 H, Plt Count 161, MPV 10.2 07/03/20 05:00: Creatinine 2.05 H, Estim Creat Clear Calc 19.33, Est GFR (MDRD) Af Amer 30 L, Est GFR (MDRD) Non-Af 25 L 07/03/20 06:17: POC Glucose 65 L 07/03/20 06:40: POC Glucose 82 07/03/20 07:34: POC Glucose 89 Current Medications Acetaminophen (Tylenol) 1,000 mg PO Q8H PRN PRN PRN Reason: Pain Score 1-3/10 or Fever Last Admin: 07/02/20 19:53 Dose: 1,000 mg Documented by: [facility] Last Admin: 07/02/20 22:05 Dose: 5 mg Documented by: Aspirin (Aspirin, Baby) 81 mg PO DAILY@0800 [facility] Last Admin: 07/03/20 07:41 Dose: 81 mg Documented by: Atorvastatin Calcium (Lipitor) 10 mg PO QHS [facility] Last Admin: 07/02/20 22:05 Dose: 10 mg Documented by: Docusate Sodium (Colace) 100 mg PO BID PRN PRN PRN Reason: CONSTIPATION Furosemide (Lasix) 20 mg PO DAILY [facility] Heparin Sodium (Porcine) (Heparin Na) 5,000 unit SC Q8 [facility] Last Admin: 07/03/20 06:02 Dose: 5,000 unit Documented by: Hydromorphone HCl (Dilaudid Inj) 0.5 mg IV Q3H PRN PRN PRN Reason: 4-10/10 ON PAIN SCALE Hydroxychloroquine [facility] ([facility]il) [facility] Last Admin: 07/02/20 22:05 Dose: 200 mg Documented by: Lactated Ringer's () 1,000 mls @ 125 mls/hr IV .Q8H [facility] Last Admin: 07/03/20 02:10 Dose: Not Given Documented by: Sodium Chloride () 250 mls @ 15 mls/hr IV .[id number] PRN PRN Reason: Saline Flush Sodium Chloride () 250 mls @ 15 mls/hr IV .[id number] PRN PRN Reason: Additional IVPB Infusion Insulin Glargine ([facility]antus (Bkc)) [facility] Last Admin: 07/02/20 22:04 Dose: 8 units Documented by: Ondansetron HCl (Zofran) 4 mg IV Q4H PRN PRN PRN Reason: NAUSEA Oxycodone HCl (Oxyir) 5 mg PO Q4H PRN PRN PRN Reason: Pain Score 4-10/10 Last Admin: 07/03/20 07:19 Dose: 5 mg Documented by: Potassium Chloride ([facility]-Dur) [facility] Last Admin: 07/03/20 07:40 Dose: 10 meq Documented by: [facility]ethic[facility] ([facility]licon) [facility] Last Admin: 08/03/20 22:04 Dose: 80 mg Documented by: Sodium Chloride () 10 - 40 ml IV UD PRN PRN Reason: SALINE FLUSH Medical Necessity - Tobacco Use Smoking Status: Never smoker Tobacco Use: Non-smoker Assessment/Plan All Active Problems (Last Reviewed 06/26/20 @ 13:38 by MISTY Suh) CHF (congestive heart failure) (Acute) Elevated d-dimer (Acute) UTI (urinary tract infection) (Acute) Gastroenteritis (Resolved) Acute cystitis (Acute) Cellulitis (Resolved) Sepsis (Resolved) DILCIA (acute kidney injury) (Resolved) Afib (Resolved) Chronic ulcer of left leg with fat layer exposed (Resolved) DVT (deep venous thrombosis) (Resolved) Nonhealing ulcer of left lower extremity with fat layer exposed (Resolved) Pulmonary emboli (Resolved) Severe sepsis (Resolved) UTI (urinary tract infection) (Resolved) Venous stasis ulcer of leg without varicose veins (Resolved) Wound abscess (Resolved) Chronic articular rheumatism (Ruled-out) Chronic foot ulcer (Ruled-out) Pyoderma gangrenosum (Ruled-out) Doing well from surgical standpoint on postoperative day #1 status post anterior posterior repair. Appreciate hospitalist help with medical management. Will discharge to home when able to void on home later today. Routine home-going instructions given.
[2020-07-03 08:30] VITALS: BP 131/59; PULSE 82; RESP 18; TEMP 36.8; O2SAT 95
[2020-07-03] MEDS: Furosemide 20 MG Tablet PO (09:38)
--- NOTE | 2020-07-03 10:40 | PCM.PROGNOTE ---
<Angi Alvarado - Last Filed: 07/03/20 10:54> Subjective: Patient seen and examined. Plan for discharge home per [facility] when patient is able to void. She denies urinary symptoms. Denies fever, chills. Denies postoperative pain. Complains of mild lower back pain which she attributes to positioning in bed. - Physical Exam Vitals/I&O's: Vital Signs Temp Pulse Resp BP Pulse Ox 98.2 F 82 18 131/59 H 95 07/03/20 08:30 07/03/20 08:30 07/03/20 08:30 07/03/20 08:30 07/03/20 08:30 Oxygen Flow Rate (L/min) 1 Oxygen Delivery Method Room Air Weight: 177 lb 4.026 oz Body Mass Index (BMI) 32.4 Finger Stick Blood Glucose 113 Intake and Output for Last 24 Hours 07/01/20 07/02/20 07/03/20 23:59 23:59 23:59 Intake Total 2754.17 / 3104.17 1147.92 / 1147.92 Output Total 760 / 1385 1075 / 1075 Balance 1994.17 / 1719.17 72.92 / 72.92 General: Alert, Oriented x3, Cooperative HEENT: Atraumatic, PERRLA, EOMI, Normocephalic Neck: Supple, No JVD, Negative Carotid Bruits Lungs: Clear to auscultation, Normal air movement Cardiovascular: Regular rate, No murmurs Abdomen: Bowel Sounds Present, Soft, Non Tender Extremities: No clubbing, No cyanosis, No edema, Capillary Refill Less than 3 Seconds Skin: No rashes, No breakdown Musculoskeletal: No Tenderness to Palpation of Joints or Extremities Neurological: Cranial nerves II-XII grossly intact, Neuro grossly intact Psych/Mental Status: Normal Affect, Appropriate Microbiology Past 72 Hours 07/02/20 Unknown Urine, Catheterized Urine Culture - Preliminary Culture exhibits no growth. Laboratory Results 07/02/20 16:21: POC Glucose 98 07/02/20 22:01: POC Glucose 123 H 07/03/20 05:00: WBC 11.7 H, RBC 3.21 L, Hgb 9.0 L, Hct 29.7 L, MCV 92.5, MCH 28.0, MCHC 30.3 L, RDW Std Deviation 61.9 H, RDW Coeff of Raymond 18.2 H, Plt Count 161, MPV 10.2 07/03/20 05:00: Creatinine 2.05 H, Estim Creat Clear Calc 19.33, Est GFR (MDRD) Af Amer 30 L, Est GFR (MDRD) Non-Af 25 L 07/03/20 06:17: POC Glucose 65 L 07/03/20 06:40: POC Glucose 82 07/03/20 07:34: POC Glucose 89 Current Medications Acetaminophen (Tylenol) 1,000 mg PO Q8H PRN PRN PRN Reason: Pain Score 1-3/10 or Fever Last Admin: 07/02/20 19:53 Dose: 1,000 mg Documented by: Amlodipine Besylate (Norvasc) 5 mg PO QHS [facility] Last Admin: 07/02/20 22:05 Dose: 5 mg Documented by: Aspirin (Aspirin, Baby) 81 mg PO DAILY@0800 [facility] Last Admin: 07/03/20 07:41 Dose: 81 mg Documented by: Atorvastatin Calcium (Lipitor) 10 mg PO QHS [facility] Last Admin: 07/02/20 22:05 Dose: 10 mg Documented by: Docusate Sodium (Colace) 100 mg PO BID PRN PRN PRN Reason: CONSTIPATION Furosemide (Lasix) 20 mg PO DAILY [facility] Last Admin: 07/03/20 09:38 Dose: 20 mg Documented by: Heparin Sodium (Porcine) (Heparin Na) 5,000 unit SC Q8 [facility] Last Admin: 07/03/20 06:02 Dose: 5,000 unit Documented by: Hydromorphone HCl (Dilaudid Inj) 0.5 mg IV Q3H PRN PRN PRN Reason: 4-10/10 ON PAIN SCALE Hydroxychloroquine Sulfate (Plaquenil) 200 mg PO QHS [facility] Last Admin: 07/02/20 22:05 Dose: 200 mg Documented by: Lactated Ringer's () 1,000 mls @ 125 mls/hr IV .Q8H [facility] Last Admin: 07/03/20 02:10 Dose: Not Given Documented by: Sodium Chloride () 250 mls @ 15 mls/hr IV .[id number] PRN PRN Reason: Saline Flush Sodium Chloride () 250 mls @ 15 mls/hr IV .[id number] PRN PRN Reason: Additional IVPB Infusion Insulin Glargine (Lantus (Bkc)) 8 units SC QHS [facility] Last Admin: 07/02/20 22:04 Dose: 8 units Documented by: Ondansetron HCl (Zofran) 4 mg IV Q4H PRN PRN PRN Reason: NAUSEA Oxycodone HCl (Oxyir) 5 mg PO Q4H PRN PRN PRN Reason: Pain Score 4-10/10 Last Admin: 07/03/20 07:19 Dose: 5 mg Documented by: [facility] Last Admin: 07/03/20 07:40 Dose: 10 meq Documented by: Simethicone (Mylicon) 80 mg PO [facility] Last Admin: 07/03/20 09:37 Dose: 80 mg Documented by: Sodium Chloride () 10 - 40 ml IV UD PRN PRN Reason: SALINE FLUSH Medical Necessity - Tobacco Use Smoking Status: Never smoker Tobacco Use: Non-smoker Assessment/Plan All Active Problems (Last Reviewed 06/26/20 @ 13:38 by MISTY Suh) CHF (congestive heart failure) (Acute) Elevated d-dimer (Acute) UTI (urinary tract infection) (Acute) Gastroenteritis (Resolved) Acute cystitis (Acute) Cellulitis (Resolved) Sepsis (Resolved) DILCIA (acute kidney injury) (Resolved) Afib (Resolved) Chronic ulcer of left leg with fat layer exposed (Resolved) DVT (deep venous thrombosis) (Resolved) Nonhealing ulcer of left lower extremity with fat layer exposed (Resolved) Pulmonary emboli (Resolved) Severe sepsis (Resolved) UTI (urinary tract infection) (Resolved) Venous stasis ulcer of leg without varicose veins (Resolved) Wound abscess (Resolved) Chronic articular rheumatism (Ruled-out) Chronic foot ulcer (Ruled-out) Pyoderma gangrenosum (Ruled-out) 1. Status post anterior posterior repair cystocele, rectocele by Dr. Anderson with marketed pyuria-management per [facility]. Previously planned for sling placement for incontinence however urine was infected appearing and this procedure was placed on hold. Urine culture shows no growth. Continue outpatient follow-up with [facility]. 2. Type 2 diabetes mellitus with diabetic [id number], continue home insulin regimen. 3. Chronic normocytic anemia-stable. 4. Chronic kidney disease stage III-stable. 5. CAD with history of PTCA/EDGARDO-continue aspirin, statin. 6. Rheumatoid arthritis-on Plaquenil. 7. Paroxysmal atrial fibrillation-not on anticoagulation or rate control regimen. 8. History of DVT/PE-no longer on anticoagulation. 9. Hypertension-stable, continue amlodipine, Lasix. 10. Hyperlipidemia-continue statin. 11. Gout-on allopurinol. DVT prophylaxis- heparin sc Discharge planning: Medically stable for discharge per hospitalist standpoint. This patient was seen by CRISTIAN Lin under the supervision of Dr. Adams. <Jose Rafael Adams F - Last Filed: 07/03/20 11:12> - Physical Exam Vitals/I&O's: Vital Signs Temp Pulse Resp BP Pulse Ox 98.2 F 82 18 131/59 H 95 07/03/20 08:30 07/03/20 08:30 07/03/20 08:30 07/03/20 08:30 07/03/20 08:30 Oxygen Flow Rate (L/min) 1 Oxygen Delivery Method Room Air Weight: 177 lb 4.026 oz Body Mass Index (BMI) 32.4 Finger Stick Blood Glucose 113 Intake and Output for Last 24 Hours 07/01/20 07/02/20 07/03/20 23:59 23:59 23:59 Intake Total 2754.17 / 3104.17 1147.92 / 1147.92 Output Total 760 / 1385 1075 / 1075 Balance 1994.17 / 1719.17 72.92 / 72.92 Microbiology Past 72 Hours 07/02/20 Unknown Urine, Catheterized Urine Culture - Preliminary Culture exhibits no growth. Laboratory Results 07/02/20 16:21: POC Glucose 98 07/02/20 22:01: POC Glucose 123 H 07/03/20 05:00: WBC 11.7 H, RBC 3.21 L, Hgb 9.0 L, Hct 29.7 L, MCV 92.5, MCH 28.0, MCHC 30.3 L, RDW Std Deviation 61.9 H, RDW Coeff of Raymond 18.2 H, Plt Count 161, MPV 10.2 07/03/20 05:00: Creatinine 2.05 H, Estim Creat Clear Calc 19.33, Est GFR (MDRD) Af Amer 30 L, Est GFR (MDRD) Non-Af 25 L 07/03/20 06:17: POC Glucose 65 L 07/03/20 06:40: POC Glucose 82 07/03/20 07:34: POC Glucose 89 Current Medications Acetaminophen (Tylenol) 1,000 mg PO Q8H PRN PRN PRN Reason: Pain Score 1-3/10 or Fever Last Admin: 07/02/20 19:53 Dose: 1,000 mg Documented by: Amlodipine Besylate (Norvasc) 5 mg PO QHS [facility] Last Admin: 07/02/20 22:05 Dose: 5 mg Documented by: Aspirin (Aspirin, Baby) 81 mg PO DAILY@0800 [facility] Last Admin: 07/03/20 07:41 Dose: 81 mg Documented by: Atorvastatin Calcium (Lipitor) 10 mg PO QHS [facility] Last Admin: 07/02/20 22:05 Dose: 10 mg Documented by: Docusate Sodium (Colace) 100 mg PO BID PRN PRN PRN Reason: CONSTIPATION Furosemide (Lasix) 20 mg PO DAILY [facility] Last Admin: 07/03/20 09:38 Dose: 20 mg Documented by: Heparin Sodium (Porcine) (Heparin Na) 5,000 unit SC Q8 [facility] Last Admin: 07/03/20 06:02 Dose: 5,000 unit Documented by: Hydromorphone HCl (Dilaudid Inj) 0.5 mg IV Q3H PRN PRN PRN Reason: 4-10/10 ON PAIN SCALE Hydroxychloroquine Sulfate (Plaquenil) 200 mg PO QHS [facility] Last Admin: 07/02/20 22:05 Dose: 200 mg Documented by: Lactated Ringer's () 1,000 mls @ 125 mls/hr IV .Q8H [facility] Last Admin: 07/03/20 02:10 Dose: Not Given Documented by: Sodium Chloride () 250 mls @ 15 mls/hr IV .[id number] PRN PRN Reason: Saline Flush Sodium Chloride () 250 mls @ 15 mls/hr IV .[id number] PRN PRN Reason: Additional IVPB Infusion Insulin Glargine (Lantus (Bkc)) 8 units SC QHS [facility] Last Admin: 07/02/20 22:04 Dose: 8 units Documented by: Ondansetron HCl (Zofran) 4 mg IV Q4H PRN PRN PRN Reason: NAUSEA Oxycodone HCl (Oxyir) 5 mg PO Q4H PRN PRN PRN Reason: Pain Score 4-10/10 Last Admin: 07/03/20 07:19 Dose: 5 mg Documented by: Potassium Chlor[facility] (K-Dur) [facility] Last Admin: 07/03/20 07:40 Dose: 10 meq Documented by: Simethicone (Mylicon) 80 mg PO [facility] Last Admin: 07/03/20 09:37 Dose: 80 mg Documented by: Sodium Chloride () 10 - 40 ml IV UD PRN PRN Reason: SALINE FLUSH Addendum: Dr. Adams I personally examined the patient and reviewed the chart. I agree with the above. 74-year-old female underwent repair of a cystocele and rectocele today by Dr. Anderson with assistance by Dr. Yanez. We are consulted to assist in medical management. She has a history of rheumatoid arthritis, paroxysmal A. fib with a history of a DVT and had an IVC filter placed. She also has type 2 diabetes, hypertension, hyperlipidemia. Her chronic medical illnesses are stable and she has not had any changes to her recent medications. Does have a history of cardiac stent, this was in 2017 therefore it is okay to hold off on the aspirin for a little bit postoperatively. Otherwise can resume all of her home medications. There was some pyuria during her procedure today however she states that she has been asymptomatic and has not noticed any burning with her urination, given the polymicrobial infection she has had in the past in her urine as well with the long list of things she is allergic to, we will monitor her white count and make sure she is remains afebrile and await culture data prior to initiating treatment. 07/03/2020: Doing well today, still states that she has no symptoms of UTI, urine cultures come back with no growth. This is likely related to the fact that she received cefotetan prior to the culture. She states that before the procedure she never had any symptoms therefore I do not think she warrants treatment and is cleared medically for discharge. Inpatient E&M: [id number] [facility] L2
[2020-07-03 11:56] VITALS: BP 147/49; PULSE 83; RESP 18; TEMP 37.2; O2SAT 97
--- NOTE | 2020-07-12 07:43 | HP.PCM_ITS ---
History of Present Illness Date of Admission: 07/02/20 Chief Complaint: incontinence The patient is a 75 year old Female with prolapse, plan to place a sling. Past Medical History Past Medical History (Chronic Problems): Chronic Problems (Last Reviewed 06/26/20 @ 13:38 by MISTY Suh) Venous insufficiency of both lower extremities (Chronic) Wound of right lower extremity (Chronic) Traumatic, penetrating with fat layer exposed. 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) Chronic renal failure, stage 4 (severe) (Chronic) Chronic steroid use (Chronic) Morbid obesity with BMI of 45.0-49.9, adult (Chronic) Osteopenia (Chronic) Pulmonary hypertension (Chronic) Personal history of DVT (deep vein thrombosis) (Chronic) Presence of IVC filter (Chronic) Ulcer of left lower extremity with fat layer exposed (Chronic) mixed venous arterial left posterior calf Lymphedema (Chronic) PVD (peripheral vascular disease) (Chronic) Paroxysmal atrial fibrillation (Chronic) S/P angioplasty with stent (Chronic ~12/05/16) EDGARDO to mid LAD 12/05/2016 DM2 (diabetes mellitus, type 2) (Chronic) Dyslipidemia (Chronic) Depression (Chronic) Gout (Chronic) 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) Medical History: Medical History (Last Reviewed 07/12/20 @ 07:[address] 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 Wiggins and is on Plaquenil and Prednisone Ulcer of left lower extremity with fat layer exposed (Chronic) L97.922 mixed venous arterial left posterior calf Lymphedema (Chronic) I89.0 PVD (peripheral vascular disease) (Chronic) I73.9 Paroxysmal atrial fibrillation (Chronic) I48.0 DM2 (diabetes mellitus, type 2) (Chronic) E11.9 Dyslipidemia (Chronic) E78.5 Depression (Chronic) F32.9 Gout (Chronic) M10.9 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) E11.59 Pulmonary hypertension I27.20 HTN (hypertension) (Inactive) I10 Allergies cefepime HCl [From Maxipime] Allergy (Verified 07/02/20 06:21) Itching cephalexin monohydrate [From Keflex] Allergy (Verified 07/02/20 06:21) Hives clopidogrel [From Plavix] Allergy (Verified 07/02/20 06:21) Itching and hives all over piperacillin [From Zosyn] Allergy (Verified 07/02/20 06:21) Hives tazobactam [From Zosyn] Allergy (Verified 07/02/20 06:21) Hives ciprofloxacin [From Cipro] Adverse Reaction (Verified 07/02/20 06:21) Itching hydromorphone HCl [From Dilaudid] Adverse Reaction (Verified 07/02/20 06:21) Itching Home Medications: Ambulatory Orders Medication Instructions Recorded Allopurinol 300 mg PO DAILY 10/16/18 Aspirin [Aspirin, Baby] 81 mg PO DAILY@0800 10/16/18 Hydroxychloroquine [Plaquenil] 200 mg PO QHS 10/16/18 Insulin Glargine,Hum.rec.anlog 8 unit SQ QHS 10/16/18 [Lantus] simvastatin 40 mg tablet 20 mg PO QHS tab 09/05/19 Potassium Chloride 10 meq PO DAILY 05/02/20 furosemide 40 mg tablet 20 mg PO DAILY #60 tab 06/06/20 amlodipine 5 mg tablet 5 mg PO QHS #90 tab 06/26/20 tramadol 50 mg tablet mg PO PRN 06/26/20 Docusate Sodium [Colace] 100 mg PO BID PRN PRN #60 cap 07/03/20 Surgical History: Surgical History (Last Reviewed 06/26/20 @ 13:38 by MISTY Suh) S/P angioplasty with stent (Chronic) Onset Date: ~12/05/16 Z95.9 EDGARDO to mid LAD 12/05/2016 History of repair of rotator cuff Z98.890 History of total hysterectomy Z90.710 Hx of appendectomy Z90.49 Surgical History: angioplasty, hysterectomy, rotator cuff repair, - Psychiatric History: Depression [place] History: No pertinent [place] history Smoking Status: Never smoker Tobacco Use: Non-smoker - *Family History Paternal Family History: Family History (Last Reviewed 06/26/20 @ 13:38 by MISTY Suh) Father Hypertension Brother CAD (coronary artery disease) History Items: Diabetes Maternal Family History: Family History (Last Reviewed 06/26/20 @ 13:38 by MISTY Suh) Father Hypertension Brother CAD (coronary artery disease) History Items: Diabetes, Hypertension Review of Systems Constitutional: Denies: Chills, Fever, Weight Change HEENT: Denies: Head Aches, Sinus Congestion, Sinus Drainage Cardiovascular: Denies: Chest Pain, Palpitations Respiratory: Denies: Cough, Shortness of breath at rest, Sputum production Gastrointestinal: Denies: Abdominal Pain, Nausea, Vomiting Genitourinary: Denies: Dysuria Musculoskeletal: Denies: Joint Pain, Joint Tenderness Skin: Denies: Rash, Wounds Neurological: Denies: Numbness, Tingling, Focal weakness Psychiatric: Denies: Anxiety, Depression, Homicidal Ideations, Suicidal Ideations Hematologic/ Lymphatic: Denies: Easy Bruising, Easy Bleeding VTE Information - Inpt Only VTE Present on Admission: No VTE Mechan Device Prophylaxis: SCD's - Physical Exam Vitals/I&O's: Vital Signs Temp Pulse Resp BP Pulse Ox 98.9 F 83 18 147/49 H 97 07/03/20 11:56 07/03/20 11:56 07/03/20 11:56 07/03/20 11:56 07/03/20 11:56 Oxygen Flow Rate (L/min) 1 Oxygen Delivery Method Room Air Weight: 80.4 kg Body Mass Index (BMI) 32.4 Finger Stick Blood Glucose 113 General: Alert, Oriented x3, Cooperative HEENT: Atraumatic, PERRLA, EOMI, Normocephalic Neck: Supple, No JVD, Negative Carotid Bruits Lungs: Clear to auscultation, Normal air movement Cardiovascular: Regular rate, No murmurs Abdomen: Bowel Sounds Present, Soft, Non Tender Extremities: No edema, Capillary Refill Less than 3 Seconds Skin: No rashes, No breakdown Musculoskeletal: No Tenderness to Palpation of Joints or Extremities Neurological: Cranial nerves II-XII grossly intact Psych/Mental Status: Normal Affect, Appropriate Assessment/Plan All Active Problems (Last Reviewed 06/26/20 @ 13:38 by MISTY Suh) CHF (congestive heart failure) (Acute) Elevated d-dimer (Acute) UTI (urinary tract infection) (Acute) Gastroenteritis (Resolved) Acute cystitis (Acute) Cellulitis (Resolved) Sepsis (Resolved) DILCIA (acute kidney injury) (Resolved) Afib (Resolved) Chronic ulcer of left leg with fat layer exposed (Resolved) DVT (deep venous thrombosis) (Resolved) Nonhealing ulcer of left lower extremity with fat layer exposed (Resolved) Pulmonary emboli (Resolved) Severe sepsis (Resolved) UTI (urinary tract infection) (Resolved) Venous stasis ulcer of leg without varicose veins (Resolved) Wound abscess (Resolved) Chronic articular rheumatism (Ruled-out) Chronic foot ulcer (Ruled-out) Pyoderma gangrenosum (Ruled-out) plan to place a sling during AP repair.
== END 2020-07-03 11:50 | disposition home or self-care (01) ==
LOC: SDC 06:00 → AC 06:00 → MS3 09:46
PROVIDERS: Anesthesiology; PCP Nurse Practitioner; Referring Provider Obstetrics & Gynecology; Visit Provider Obstetrics & Gynecology
PROC: (CPT 57260; principal; 2020-07-02 07:15)
DX: N81.6 Rectocele (principal); N81.11 Cystocele, midline; N39.3 Stress incontinence (female) (male); Z11.59 Encounter for screening for other viral diseases; Z53.09 Procedure and treatment not carried out because of other contraindication; E11.22 Type 2 diabetes mellitus with diabetic chronic kidney disease; M06.9 Rheumatoid arthritis, unspecified; I48.0 Paroxysmal atrial fibrillation; I13.0 Hypertensive heart and chronic kidney disease with heart failure and stage 1 through stage 4 chronic kidney disease, or unspecified chronic kidney disease; I50.9 Heart failure, unspecified; N18.3 Chronic kidney disease, stage 3 (moderate); E78.5 Hyperlipidemia, unspecified; M10.9 Gout, unspecified; E66.9 Obesity, unspecified; Z79.82 Long term (current) use of aspirin; Z79.4 Long term (current) use of insulin; Z79.899 Other long term (current) drug therapy; Z86.711 Personal history of pulmonary embolism; Z86.718 Personal history of other venous thrombosis and embolism; Z95.5 Presence of coronary angioplasty implant and graft
CPT/HCPCS: 00942; 57260; 57288; 36415; 80053; 82565; 82962; 83036; 85027; 85610; 85730; 86850; 86900; 86901; 87086; 87635; 88304; 94762; 94799; 97802; 99251; J7120; G0463; J2405; U0003

== ENCOUNTER → 2020-08-31 14:55 | Outpatient (CLI) | payer MEDICARE, SELFPAY ==
[2016-12-05 15:47] VITALS: BMI 35.6
[2020-07-02 10:52] VITALS: BMI 32.4
[2020-08-31 17:43] LABS: Absolute Lymphocyte Count 2.79 X10^3/uL (0.83-4.51); Absolute Neutrophil Count 5.8 X10^3/uL (2.0-7.7); Basophil# 0.07 X10^3/uL; Basophil% 0.7 % (0-1); Eosinophil# 0.62 X10^3/uL; Eosinophils% 6.3 % (0-5); Hematocrit 32.5 % (37-47); Hemoglobin 9.6 g/dL (12.0-15.0); Lymphocyte # 2.79 X10^3/ul (4.0); Lymphocyte % 28.3 % (19-41); Mean Corp Hgb Conc 29.5 g/dL (32-36); Mean Corpuscular Hgb 28.7 pg (27.0-32.0); Mean Corpuscular Volume 97.3 fL (81-99); Monocyte# 0.55 X10^3/uL; Monocyte% 5.6 % (0-10); NRBC Flagged by Analyzer 0 % (0-5); Neutrophil % 58.7 % (47-70); Platelet Count 287 K/mm3 (150-450); RBC Distribution Width CV 17.2 % (11.6-14.6); RBC Distribution Width SD 61.4 fl (35.1-43.9); Red Blood Count 3.34 M/mm3 (4.2-5.4); White Blood Count 9.9 K/mm3 (4.4-11.0)
[2020-08-31 17:55] LABS: ALB/GLOB Ratio 0.6 RATIO (0.9-2.4); AST(SGOT) 13 U/L (15-37); Alanine Aminotransfer ALT/SGPT 12 U/L (13-56); Alkaline Phosphatase 159 U/L (45-117); Anion Gap 4 (5-15); BUN 30 mg/dL (7-18); BUN/Creat Ratio 13.3 RATIO (10-20); Calcium,Total 8.9 mg/dL (8.5-10.1); Chloride 105 mmol/L (98-107); Creatinine, Serum 2.26 mg/dL (0.55-1.02); EST Glomerular Filtration Rate 23 mL/min (>60); Est Glom Filt Rate - Afr Amer 27 mL/min (>60); Globulin 5.2 g/dL (2.2-4.2); Glucose 81 mg/dL (74-106); Potassium 4.2 mmol/L (3.5-5.1); Protein, Total 8.2 g/dL (6.4-8.2); Sodium Level 137 mmol/L (136-145); Uric Acid 3.5 mg/dL (2.6-6.0)
== END ==
PROVIDERS: PCP Nurse Practitioner; Referring Provider Internal Medicine Rheumatology; Visit Provider Internal Medicine Rheumatology
DX: M06.00 Rheumatoid arthritis without rheumatoid factor, unspecified site (principal); M10.00 Idiopathic gout, unspecified site; M17.0 Bilateral primary osteoarthritis of knee; M21.40 Flat foot [pes planus] (acquired), unspecified foot; I10 Essential (primary) hypertension; E78.5 Hyperlipidemia, unspecified; I26.99 Other pulmonary embolism without acute cor pulmonale; Z86.718 Personal history of other venous thrombosis and embolism
CPT/HCPCS: 36415; 80053; 84550; 85025

== ENCOUNTER 2021-01-28 10:51 | Outpatient (RCR) | payer MEDICARE, SELFPAY ==
[2016-12-05 15:47] VITALS: BMI 35.6
[2020-07-02 10:52] VITALS: BMI 32.4
== END 2021-01-28 23:59 ==
LOC: IMMUN 10:51
PROVIDERS: PCP Nurse Practitioner; Visit Provider Family Medicine
DX: Z23 Encounter for immunization (principal)
CPT/HCPCS: 0011A; 0012A

== ENCOUNTER → 2021-02-20 10:48 | Outpatient (CLI) | payer MEDICARE, SELFPAY ==
[2016-12-05 15:47] VITALS: BMI 35.6
[2020-07-02 10:52] VITALS: BMI 32.4
--- NOTE | 2021-02-20 10:52 | VDUE_ITS ---
Reason For Study: CKD Stage 4 Right Arm Left Arm Right Cephalic Vein at the wrist measures Left Cephalic Vein at the wrist measures 0.28 x 0.27 cm. 0.34 x 0.34 cm. Right Cephalic Vein in the forearm measures Left Cephalic Vein in the forearm measures 0.37 x 0.36 cm. 0.39 x 0.41 cm. Right Cephalic Vein below antecub measures Left Cephalic Vein below antecub measures 0.28 x 0.28 cm. 0.34 x 0.32 cm. Right Cephalic Vein above antecub measures Left Cephalic Vein above antecub measures 0.56 x 0.55 cm. 0.59 x 0.63 cm. Right Cephalic Vein mid bicep measures 0.49 Left Cephalic Vein at mid bicep measures x 0.47 cm. 0.58 x 0.64 cm. Right Cephalic Vein at the shoulder measures Left Cephalic Vein at the shoulder measures 0.46 x 0.45 cm. 0.61 x 0.64 cm. Right Basilic Vein at the origin measures Basilic vein at origin measures 0.26 x 0.26 0.40 x 0.39 cm. cm. Right Basilic Vein mid bicep measures 0.34 x Basilic vein at bicep measures 0.36 x 0.36 0.36 cm. cm. Right Basilic Vein above antecub measures Basilic vein above antecub measures 0.35 x 0.27 x 0.27 cm. 0.32 cm. Right Brachial artery measures 0.43 x 0.42 Left Brachial artery measures 0.42 x 0.43 cm cm with a velocity of 105.2 cm/sec. with a velocity of 110.5 cm/sec. Rigth Radial artery measures 0.28 x 0.27 cm Left Radial artery measures 0.23 x 0.23 cm with a velocity of 117.9 cm/sec. with a velocity of 101.4 cm/sec. Interpretation Summary Patent and compressible bilateral upper extremity cephalic and basilic veins with dimensions as noted. Normal diameter and flow bilateral radial and brachial arteries Ordering Physician: Blanca Vela Referring Physician: Sonja Feliciano Performed By: Smitha Mays RVT ?
== END ==
PROVIDERS: PCP Nurse Practitioner; Referring Provider Internal Medicine Nephrology; Visit Provider Internal Medicine Nephrology
DX: Z01.818 Encounter for other preprocedural examination (principal); N18.4 Chronic kidney disease, stage 4 (severe)
CPT/HCPCS: 93970

== ENCOUNTER 2021-03-10 15:00 | Inpatient (IN) | payer MEDICARE, SELFPAY ==
[2016-12-05 15:47] VITALS: BMI 35.6
[2020-07-02 10:52] VITALS: BMI 32.4
[2021-03-10] VITALS (12 sets, daily range): BP systolic 133–202; BP diastolic 41–136; PULSE 53–152; RESP 16–28; TEMP 36.9–39.2; O2SAT 88–98; BMI 33.6; BMI 32.7
--- NOTE | 2021-03-10 15:09 | EKG12_ITS ---
Test Reason : SOB Blood Pressure : / mmHG Vent. Rate : 142 BPM Atrial Rate : 142 BPM P-R Int : 120 ms QRS Dur : 114 ms QT Int : 320 ms P-R-T Axes : 000 006 066 degrees QTc Int : 492 ms Sinus tachycardia Nonspecific ST and T wave abnormality Abnormal ECG Confirmed by CHRIS MORELAND, ROBBY ([id number]), editor producer GALEN SINGH ([id number]) on 03/11/2021 2:24:02 PM Referred By: CARMEN Confirmed By:ROBBY PEREZ MD
--- NOTE | 2021-03-10 15:21 | ED.DCSUM_ITS ---
History of Present Illness Chief Complaint: General Illness Narrative: Patient is a 75-year-old female who presents with chills. Her symptoms began this afternoon. She states she felt normal yesterday. This afternoon she developed chills cough sputum. She complains of posttussive emesis but is not otherwise nauseated. No diarrhea. She does have urinary incontinence but this is a chronic issue not new. She denies congestion rhinorrhea. She does complain of a headache and body aches. She did receive Covid vaccination. No chest pain. No abdominal pain. She does have a history of paroxysmal atrial fibrillation but is not anticoagulated. Past Medical History - Allergies and Home Meds Allergies/Adverse Reactions: Allergies cefepime HCl [From Maxipime] Allergy (Verified 03/10/21 15:32) Itching cephalexin monohydrate [From Keflex] Allergy (Verified 03/10/21 15:32) Hives clopidogrel [From Plavix] Allergy (Verified 03/10/21 15:32) Itching and hives all over piperacillin [From Zosyn] Allergy (Verified 03/10/21 15:32) Hives tazobactam [From Zosyn] Allergy (Verified 03/10/21 15:32) Hives ciprofloxacin [From Cipro] Adverse Reaction (Verified 03/10/21 15:32) Itching hydromorphone HCl [From Dilaudid] Adverse Reaction (Verified 03/10/21 15:32) Itching Primary Care Physician: Sonja Feliciano HOME CARE AND HOME HEALTH AIDES TEACHER, HOME CARE AND HOME HEALTH AIDES TEACHER-C [Primary Care Provider] - Past Medical History: - - Diabetes, hypertension, coronary artery disease, atrial fibrillation Surgical History: angioplasty, hysterectomy, rotator cuff repair, - Smoking Status: Never smoker - Family History Paternal Family History: Family History (Last Reviewed 06/26/20 @ 13:38 by Little JAY, PA) Father Hypertension Brother CAD (coronary artery disease) Family History: Reports: Diabetes Maternal Family History: Family History (Last Reviewed 06/26/20 @ 13:38 by Little JAY, PA) Father Hypertension Brother CAD (coronary artery disease) Family History: Reports: Diabetes, Hypertension Review of Systems All systems negative except as indicated General: Reports: Fever Eyes: Denies: Visual changes - bilaterally ENT: Denies: Bilateral ear pain Cardiovascular: Denies: Chest pain Respiratory: Reports: Cough, Sputum Gastrointestinal: Reports: Vomiting. Denies: Abdominal pain, Diarrhea Musculoskeletal: Reports: Myalgias, Arthralgias Skin: Denies: Rash Neurological: Reports: Headache Hematologic: Denies: Easy bruising Allergy: Denies: Uticaria Physical Exam Vital Signs/Narrative: Vital Signs Temp Pulse Resp BP Pulse Ox 03/10/21 15:01 100.3 F H 140 H 28 H 202/77 H 94 Inital Vital Signs reviewed: Yes General: Well nourished Head: Normocephalic Eyes: EOMI ENT: Moist mucous membranes Neck: Supple Cardiovascular: No murmurs, Irregular, Tachycardia Respiratory: - - Tachypnea but lungs are clear I do not appreciate rales rhonchi or wheezing she has equal breath sounds. Negative for: Rales, Rhonchi, Wheezing Abdomen: Soft, Nontender, Nondistended Extremities: - - Patient has open wounds of the bilateral lower extremities, there is a 5 cm ulceration along the medial distal left leg as well as a 2 cm ulceration of the medial distal right leg there is some surrounding erythema and legs are warm to touch Skin: Normal color Neurological: Alert Psychological: Normal affect Diagnostic/Tx/Re-eval Impressions Chest X-Ray 03/10/21 15:25 IMPRESSION: 1. Decrease prominence of the pulmonary interstitial markings with clearing of the bilateral pleural fluid. 2. Prominent right hilum uncertain for adenopathy. HRCT chest will help clarify if desired. Electronically Signed: Mahamed Fortune MD at 15:44 EDT , Service support , 03/10/21 15:25 Chest 1 View (Portable) [RAD] Stat 03/10/21 15:42 Mucosa - Nose SARS-CoV-2 Antigen (Rapid) - Final Laboratory Results 03/10/21 03/10/21 03/10/21 15:40 15:40 15:40 WBC 21.2 H RBC 3.11 L Hgb 9.3 L Hct 29.0 L MCV 93.2 MCH 29.9 MCHC 32.1 RDW Std Deviation 56.0 H RDW Coeff of Raymond 16.5 H Plt Count 283 MPV 9.7 Immature Gran % (Auto) 0.400 Neut % (Auto) 90.8 H Lymph % (Auto) 4.2 L [place] % (Auto) 3.4 Eos % (Auto) 0.9 Baso % (Auto) 0.3 Absolute Neuts (auto) 19.3 H Absolute Lymphs (auto) 0.90 Nucleated RBC % 0 PT 13.2 INR 1.1 APTT 32.0 Sodium 136 Potassium 4.1 Chloride 105 Carbon Dioxide 21.0 Anion Gap 10 BUN 43 H Creatinine 2.91 H Estim Creat Clear Calc 13.41 Est GFR (MDRD) Af Amer 20 L Est GFR (MDRD) Non-Af 17 L BUN/Creatinine Ratio 14.8 Glucose 110 H Lactic Acid Calcium 8.8 Total Bilirubin 0.80 AST 66 H ALT 12 L Alkaline Phosphatase 156 H Troponin I 0.016 Total Protein 7.8 Albumin 2.5 L Globulin 5.3 H Albumin/Globulin Ratio 0.5 L Urine Color Urine Clarity Urine pH Ur Specific [place] Urine Protein Urine Glucose (UA) Urine Ketones Urine Occult Blood Urine Nitrite Urine Bilirubin Urine Urobilinogen Ur Leukocyte Esterase Urine RBC Urine WBC Ur Squamous Epith Cells Urine Bacteria Urine Mucus 03/10/21 03/10/21 15:40 15:50 WBC RBC Hgb Hct MCV MCH MCHC RDW Std Deviation RDW Coeff of Raymond Plt Count MPV Immature Gran % (Auto) Neut % (Auto) Lymph % (Auto) [place] % (Auto) Eos % (Auto) Baso % (Auto) Absolute Neuts (auto) Absolute Lymphs (auto) Nucleated RBC % PT INR APTT Sodium Potassium Chloride Carbon Dioxide Anion Gap BUN Creatinine Estim Creat Clear Calc Est GFR (MDRD) Af Amer Est GFR (MDRD) Non-Af BUN/Creatinine Ratio Glucose Lactic Acid 0.8 Calcium Total Bilirubin AST ALT Alkaline Phosphatase Troponin I Total Protein Albumin Globulin Albumin/Globulin Ratio Urine Color Yellow Urine Clarity Cloudy Urine pH 6.0 Ur Specific [place] 1.015 Urine Protein 500 H Urine Glucose (UA) 50 H Urine Ketones Negative Urine Occult Blood 150 H Urine Nitrite Negative Urine Bilirubin Negative Urine Urobilinogen Normal Ur Leukocyte Esterase 500 H Urine RBC 5-10 SEEN Urine WBC >100 SEEN Ur Squamous Epith Cells 0-5 SEEN Urine Bacteria RARE Urine Mucus 0 SEEN - Medical Decision Making EKG shows sinus rhythm at a rate of 92. She does have some lateral T wave inversions. One-view portable chest x-ray obtained. On my interpretation the shows prominent interstitial markings. This was read by radiology as decreased prominence of interstitial markings with clearing of bilateral pleural fluid. Right hilum is noted to be prominent. Patient may need follow-up CT for this. Her labs are notable for leukocytosis with a white blood cell count of 21,000. Creatinine is 2.9, previous 2.2. Patient was given IV fluids. Lactic acid is normal. Urinalysis does show pyuria. Patient had been given IV vancomycin for possible cellulitis of the bilateral lower extremities. She was then also given Invanz for her urine. Patient has multiple allergies including to penicillins, cephalosporins, fluoroquinolones. Heart rate is improved on reevaluation. Patient was given IV labetalol for her significant hypertension and blood pressure is also improved on reevaluation. Patient will be discussed with the hospitalist service and admitted. ED Disposition - Plan for ED Patient: Disposition: Acute Care Hospital [facility] Diagnosis: UTI (urinary tract infection), Cellulitis, leg, Sepsis syndrome Referrals: Sonja Feliciano HOME CARE AND HOME HEALTH AIDES TEACHER, HOME CARE AND HOME HEALTH AIDES TEACHER-C [Primary Care Provider] -
--- NOTE | 2021-03-10 15:25 | RAD_ITS ---
EXAM: XR CHEST, 1 VIEW CLINICAL INDICATION: Sepsis TECHNIQUE: Frontal view of the chest. This report was created using [employer] report generation technology. COMPARISON: 12/04/2020. FINDINGS: LUNGS AND PLEURAL SPACES: Decreased prominence of the pulmonary interstitial lung markings. Clearing of bilateral pleural fluid. No pneumothorax. HEART: Unremarkable. Cardiac silhouette not enlarged. MEDIASTINUM: Normal mediastinum. Prominent right hilum is uncertain for adenopathy. BONES/JOINTS: Unremarkable. SOFT TISSUES: Unremarkable. RAD/Chest 1 View (Portable) IMPRESSION: 1. Decrease prominence of the pulmonary interstitial markings with clearing of the bilateral pleural fluid. 2. Prominent right hilum uncertain for adenopathy. HRCT chest will help clarify if desired. Electronically Signed: Mahamed Fortune MD at 15:44 EDT , Service support ,
[2021-03-10] MEDS: Labetalol (Prefilled) 20 MG/4 ML IV (15:54)
[2021-03-10 16:04] LABS: Color, Urine Yellow (Yellow); Glucose, Dipstick 50 mg/dl (Normal); Ketone-Dipstick Negative (Negative); Leukocyte Esterase-Dipstick 500 /ul (Negative); Mucous, Urine 0 SEEN /hpf (<or=2+); Nitrite-Dipstick Negative (Negative); Occult Blood-Urine 150 /ul (Negative); Protein-Dipstick 500 mg/dl (Negative); Specific Gravity, Urine 1.015 (1.002-1.030); Urine Bilirubin Dipstick Negative (Negative); Urine Clarity Cloudy (Clear); Urine Urobilinogen Normal (Normal)
[2021-03-10 16:05] LABS: Absolute Neutrophil Count 19.3 X10^3/uL (2.0-7.7); Basophil# 0.07 X10^3/uL; Basophil% 0.3 % (0-1); Eosinophil# 0.19 X10^3/uL; Eosinophils% 0.9 % (0-5); Hemoglobin 9.3 g/dL (12.0-15.0); Lymphocyte % 4.2 % (19-41); Mean Corp Hgb Conc 32.1 g/dL (32-36); Mean Corpuscular Hgb 29.9 pg (27.0-32.0); Mean Corpuscular Volume 93.2 fL (81-99); Mean Platelet Vol. 9.7 fl (6.2-12.0); Monocyte# 0.73 X10^3/uL; Monocyte% 3.4 % (0-10); NRBC Flagged by Analyzer 0 % (0-5); Neutrophil # 19.25 X10^3/uL (2.7-7.7); Neutrophil % 90.8 % (47-70); Platelet Count 283 K/mm3 (150-450); RBC Distribution Width CV 16.5 % (11.6-14.6); Red Blood Count 3.11 M/mm3 (4.2-5.4); White Blood Count 21.2 K/mm3 (4.4-11.0)
[2021-03-10] MEDS: Acetaminophen 500 MG Tablet 1000 MG PO (16:13)
[2021-03-10 16:15] LABS: International Normalized Ratio 1.1; Prothrombin Time (Protime)PT. 13.2 SECONDS (11.7-14.9)
[2021-03-10 16:15] LABS: Bacteria RARE /hpf (None Seen); Red Blood Cells-Urine 5-10 SEEN /hpf (0-5); Squamous Epithelial Cells - UA 0-5 SEEN /hpf (5-10); White Blood Cells >100 SEEN /hpf (0-5)
[2021-03-10 16:23] LABS: Lactic Acid 0.8 mmol/L (0.4-1.9)
[2021-03-10 16:42] LABS: ALB/GLOB Ratio 0.5 RATIO (0.9-2.4); AST(SGOT) 66 U/L (15-37); Alanine Aminotransfer ALT/SGPT 12 U/L (13-56); Albumin, Serum 2.5 g/dL (3.2-5.0); Alkaline Phosphatase 156 U/L (45-117); Anion Gap 10 (5-15); BUN 43 mg/dL (7-18); BUN/Creat Ratio 14.8 RATIO (10-20); Calcium,Total 8.8 mg/dL (8.5-10.1); Chloride 105 mmol/L (98-107); Creatinine, Serum 2.91 mg/dL (0.55-1.02); EST Glomerular Filtration Rate 17 mL/min (>60); Est Glom Filt Rate - Afr Amer 20 mL/min (>60); Estimated Creatinine Clearance 13.41 ml/min; Globulin 5.3 g/dL (2.2-4.2); Glucose 110 mg/dL (74-106); Potassium 4.1 mmol/L (3.5-5.1); Protein, Total 7.8 g/dL (6.4-8.2); Sodium Level 136 mmol/L (136-145)
--- NOTE | 2021-03-10 17:32 | PCM.HP.STD ---
Problem List (1) Sepsis Status: Acute (2) UTI (urinary tract infection) Status: Acute Qualifiers: Encounter type: initial encounter (3) Acute kidney injury superimposed on chronic kidney disease Status: Chronic (4) Venous insufficiency of both lower extremities Status: Acute (5) CHF (congestive heart failure) Status: Chronic (6) Essential hypertension Status: Chronic (7) Rheumatoid arthritis Status: Suspected Comment: she sees Dr. Wiggins and is on Plaquenil and Prednisone (8) Paroxysmal atrial fibrillation Status: Chronic (9) DM2 (diabetes mellitus, type 2) Status: Chronic (10) Dyslipidemia Status: Chronic (11) Gout Status: Chronic (12) Stasis edema with ulcer of both lower extremities Status: Acute History of Present Illness Date of Admission: 03/10/21 Chief Complaint: SOB, Increased incontinence The patient is a 75 year old F presents today with chills, headache and body aches that developed earlier today. Patient also reports productive cough and increased urinary incontinence. Patient's daughter at bedside and reports that patient typically presents this way when she has a urinary tract infection. UA positive protein positive glucose positive occult blood and positive leukocyte, urine and blood cultures pending. Patient is febrile, tachycardic, and tachypneic. Upon presentation to ER patient pulse ox was 88%, currently 97% on 2 L. Patient also noted to be hypertensive and received labetalol 20 mg IV x2 in ER. chest x-ray notes decreased prominence of the pulmonary interstitial markings with clearing of bilateral pleural fluid and prominent right hilum uncertain for adenopathy. Due to patient allergies patient received IV Invanz in ER. Will continue pending urine and blood cultures. Past Medical History Past Medical History (Chronic Problems): Chronic Problems (Last Reviewed 03/10/21 @ 17:44 by Taylor Catherine, SAMANTA-C) Acute kidney injury superimposed on chronic kidney disease (Chronic) Wound of right lower extremity (Chronic) Traumatic, penetrating with fat layer exposed. 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) Chronic renal failure, stage 4 (severe) (Chronic) Chronic steroid use (Chronic) Morbid obesity with BMI of 45.0-49.9, adult (Chronic) Osteopenia (Chronic) Pulmonary hypertension (Chronic) Personal history of DVT (deep vein thrombosis) (Chronic) Presence of IVC filter (Chronic) Ulcer of left lower extremity with fat layer exposed (Chronic) mixed venous arterial left posterior calf Lymphedema (Chronic) PVD (peripheral vascular disease) (Chronic) Paroxysmal atrial fibrillation (Chronic) S/P angioplasty with stent (Chronic ~12/05/16) EDGARDO to mid LAD 12/05/2016 DM2 (diabetes mellitus, type 2) (Chronic) Dyslipidemia (Chronic) Depression (Chronic) Gout (Chronic) 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) Medical History: Medical History (Last Reviewed 03/10/21 @ 17:44 by Taylor Catherine, LADLE POURER-C) Venous insufficiency of both lower extremities (Acute) I87.2 Wound of right lower extremity (Chronic) S81.801A Traumatic, penetrating with fat layer exposed. Ulcer of right lower extremity with fat layer exposed (Chronic) L97.912 CHF (congestive heart failure) (Chronic) I50.9 Elevated d-dimer (Acute) R79.89 Essential hypertension (Chronic) I10 Debility (Chronic) R53.81 Premature atrial contractions (Chronic) I49.1 Premature ventricular contraction (Chronic) I49.3 Atherosclerotic heart disease of [place] coronary artery without angina pectoris (Chronic) I25.10 Varicose veins of both lower extremities (Chronic) I83.93 Chronic renal failure, stage 4 (severe) (Chronic) N18.4 Chronic steroid use (Chronic) Morbid obesity with BMI of 45.0-49.9, adult (Chronic) E66.01, Z68.42 Osteopenia (Chronic) M85.80 Pulmonary hypertension (Chronic) I27.20 Personal history of DVT (deep vein thrombosis) (Chronic) Z86.718 Presence of IVC filter (Chronic) Z95.828 Rheumatoid arthritis (Suspected) M06.[address] Wiggins and is on Plaquenil and Prednisone Ulcer of left lower extremity with fat layer exposed (Chronic) L97.922 mixed venous arterial left posterior calf Lymphedema (Chronic) I89.0 PVD (peripheral vascular disease) (Chronic) I73.9 Paroxysmal atrial fibrillation (Chronic) I48.0 DM2 (diabetes mellitus, type 2) (Chronic) E11.9 Dyslipidemia (Chronic) E78.5 Depression (Chronic) F32.9 Gout (Chronic) M10.9 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) E11.59 Pulmonary hypertension I27.20 Cellulitis L03.90 Gastroenteritis K52.9 Sepsis A41.9 UTI (urinary tract infection) N39.0 HTN (hypertension) (Inactive) I10 Allergies cefepime HCl [From Maxipime] Allergy (Verified 03/10/21 15:32) Itching cephalexin monohydrate [From Keflex] Allergy (Verified 03/10/21 15:32) Hives clopidogrel [From Plavix] Allergy (Verified 03/10/21 15:32) Itching and hives all over piperacillin [From Zosyn] Allergy (Verified 03/10/21 15:32) Hives tazobactam [From Zosyn] Allergy (Verified 03/10/21 15:32) Hives ciprofloxacin [From Cipro] Adverse Reaction (Verified 03/10/21 15:32) Itching hydromorphone HCl [From Dilaudid] Adverse Reaction (Verified 03/10/21 15:32) Itching Home Medications: Ambulatory Orders Medication Instructions Recorded Allopurinol 300 mg PO DAILY 10/16/18 Aspirin [Aspirin, Baby] 81 mg PO DAILY@0800 10/16/18 Hydroxychloroquine [Plaquenil] 200 mg PO QHS 10/16/18 Insulin Glargine,Hum.rec.anlog 8 unit SQ QHS 10/16/18 [Lantus] simvastatin 40 mg tablet 20 mg PO QHS tab 09/05/19 furosemide 40 mg tablet 20 mg PO DAILY #60 tab 06/06/20 tramadol 50 mg tablet mg PO PRN 06/26/20 Docusate Sodium [Colace] 100 mg PO BID PRN PRN #60 cap 07/03/20 ferrous sulfate 325 mg (65 mg 325 mg PO DAILY 08/15/20 iron) tablet potassium chloride 10 mEq 10 meq PO .QOD tab 08/15/20 tablet,extended release(part/cryst) Amlodipine Besylate [Norvasc] 10 mg PO DAILY 03/10/21 Surgical History: Surgical History (Last Reviewed 03/10/21 @ 17:44 by Taylor Catherine, LADLE POURER-C) S/P angioplasty with stent (Chronic) Onset Date: ~12/05/16 Z95.9 EDGARDO to mid LAD 12/05/2016 History of repair of rotator cuff Z98.890 History of total hysterectomy Z90.710 Hx of appendectomy Z90.49 Surgical History: angioplasty, hysterectomy, rotator cuff repair Psychiatric History: Depression CLINICAL DOCUMENTATION CONSULTANT History: No pertinent CLINICAL DOCUMENTATION CONSULTANT history Smoking Status: Never smoker Alcohol: None Drugs: None - *Family History Paternal Family History: Family History (Last Reviewed 06/26/20 @ 13:38 by Little JAY, PA) Father Hypertension Brother CAD (coronary artery disease) History Items: Diabetes Maternal Family History: Family History (Last Reviewed 06/26/20 @ 13:38 by Little JAY, PA) Father Hypertension Brother CAD (coronary artery disease) History Items: Diabetes, Hypertension Review of Systems Constitutional: Reports: Chills, Fever, Malaise. Denies: Weight Change HEENT: Denies: Head Aches, Sinus Congestion, Sinus Drainage Cardiovascular: Denies: Chest Pain, Palpitations Respiratory: Reports: Cough, Shortness of Breath, Sputum production Gastrointestinal: Denies: Abdominal Pain, Nausea, Vomiting Genitourinary: Reports: Dysuria, Incontinence - Patient chronically incontinent but has noticed increase in incontinence Musculoskeletal: Denies: Joint Pain, Joint Tenderness Skin: Reports: Wounds - Chronic stasis ulcers to bilateral lower extremities. Denies: Rash Neurological: Denies: Numbness, Tingling, Focal weakness Psychiatric: Denies: Anxiety, Depression, Homicidal Ideations, Suicidal Ideations Hematologic/ Lymphatic: Denies: Easy Bruising, Easy Bleeding VTE Information - Inpt Only VTE Present on Admission: No VTE Mechan Device Prophylaxis: None VTE Pharm Prophylaxis ordered?: Yes Patient Problems: Active and Suspected Problems (Last Reviewed 03/10/21 @ 17:44 by Taylor Catherine, LADLE POURER-C) UTI (urinary tract infection) (Acute) Cellulitis, leg (Acute) Sepsis syndrome (Acute) Sepsis (Acute) Venous insufficiency of both lower extremities (Acute) Rheumatoid arthritis (Suspected) she sees Dr. Wiggins and is on Plaquenil and Prednisone - Physical Exam Vitals/I&O's: Vital Signs Temp Pulse Resp BP Pulse Ox 101.2 F H 99 20 H 164/95 H 97 03/10/21 17:22 03/10/21 17:22 03/10/21 17:22 03/10/21 17:22 03/10/21 17:22 Oxygen Flow Rate (L/min) 2 Oxygen Delivery Method Nasal Cannula Weight: 183 lb 13.848 oz Body Mass Index (BMI) 33.6 Finger Stick Blood Glucose 113 General: Alert, Oriented x3, Cooperative HEENT: Atraumatic, PERRLA, EOMI, Normocephalic Neck: Supple, No JVD, Negative Carotid Bruits Lungs: Normal air movement, Diminished Cardiovascular: Regular rate, Regular Rhythm, Normal S1, Normal S2, No murmurs, Tachycardic Abdomen: Bowel Sounds Present, Soft, Non Tender Extremities: Edema, Peripheral Pulses Normal Skin: Ulcer/ Wound - Multiple stasis ulcers to bilateral lower extremities Musculoskeletal: No Tenderness to Palpation of Joints or Extremities Neurological: Cranial nerves II-XII grossly intact Psych/Mental Status: Normal Affect, Appropriate Microbiology Past 72 Hours 03/10/21 15:42 Mucosa - Nose SARS-CoV-2 Antigen (Rapid) - Final Laboratory Results 03/10/21 15:40: WBC 21.2 H, RBC 3.11 L, Hgb 9.3 L, Hct 29.0 L, MCV 93.2, MCH 29.9, MCHC 32.1, RDW Std Deviation 56.0 H, RDW Coeff of Raymond 16.5 H, Plt Count 283, MPV 9.7, Immature Gran % (Auto) 0.400, Neut % (Auto) 90.8 H, Lymph % (Auto) 4.2 L, [place] % (Auto) 3.4, Eos % (Auto) 0.9, Baso % (Auto) 0.3, Absolute Neuts (auto) 19.3 H, Absolute Lymphs (auto) 0.90, Nucleated RBC % 0 03/10/21 15:40: PT 13.2, INR 1.1, APTT 32.0 03/10/21 15:40: Sodium 136, Potassium 4.1, Chloride 105, Carbon Dioxide 21.0, Anion Gap 10, BUN 43 H, Creatinine 2.91 H, Estim Creat Clear Calc 13.41, Est GFR (MDRD) Af Amer 20 L, Est GFR (MDRD) Non-Af 17 L, BUN/Creatinine Ratio 14.8, Glucose 110 H, Calcium 8.8, Total Bilirubin 0.80, AST 66 H, ALT 12 L, Alkaline Phosphatase 156 H, Troponin I 0.016, Total Protein 7.8, Albumin 2.5 L, Globulin 5.3 H, Albumin/Globulin Ratio 0.5 L 03/10/21 15:40: Lactic Acid 0.8 03/10/21 15:50: Urine Color Yellow, Urine Clarity Cloudy, Urine pH 6.0, Ur Specific [place] 1.015, Urine Protein 500 H, Urine Glucose (UA) 50 H, Urine Ketones Negative, Urine Occult Blood 150 H, Urine Nitrite Negative, Urine Bilirubin Negative, Urine Urobilinogen Normal, Ur Leukocyte Esterase 500 H, Urine RBC 5-10 SEEN, Urine WBC >100 SEEN, Ur Squamous Epith Cells 0-5 SEEN, Urine Bacteria RARE, Urine Mucus 0 SEEN Assessment/Plan All Active Problems (Last Reviewed 03/10/21 @ 17:44 by Taylor Catherine, LADLE POURER-C) UTI (urinary tract infection) (Acute) Cellulitis, leg (Acute) Sepsis syndrome (Acute) Sepsis (Acute) Stasis edema with ulcer of both lower extremities (Acute) Venous insufficiency of both lower extremities (Acute) Elevated d-dimer (Acute) Acute cystitis (Acute) DILCIA (acute kidney injury) (Resolved) Afib (Resolved) Chronic ulcer of left leg with fat layer exposed (Resolved) DVT (deep venous thrombosis) (Resolved) Nonhealing ulcer of left lower extremity with fat layer exposed (Resolved) Pulmonary emboli (Resolved) Severe sepsis (Resolved) UTI (urinary tract infection) (Resolved) Venous stasis ulcer of leg without varicose veins (Resolved) Wound abscess (Resolved) Chronic articular rheumatism (Ruled-out) Chronic foot ulcer (Ruled-out) Pyoderma gangrenosum (Ruled-out) 1. Sepsis secondary to urinary tract infection -Admit to MedSurg -Continue Invanz IV pending blood and urine cultures -Normal saline 100 ml/hr x2 bags due to patient history of CHF -Trend CBC and CMP daily -Strict I&O, insert Dyer catheter -Vital signs per VSA -Procalcitonin stat -O2 per protocol for acute hypoxia related to sepsis 2. Acute kidney injury superimposed on chronic kidney disease -IV fluid resuscitation ordered -CMP daily, trend BUN/creatinine 3. Venous insufficiency of both lower extremities -Chronic, Eder wraps ordered. -Elevate bilateral lower extremities. 4. Diabetes mellitus type 2 -Continue home Lantus -AC at bedtime blood sugars ordered with sliding scale insulin 5. Hypertension -Patient initially hypertensive on presentation, as needed hydralazine ordered -Will continue home medication regimen with the exception of p.o. Lasix due to acute kidney injury. -Vital signs per VSA 6. CHF -Monitor patient for signs and symptoms of acute CHF exacerbation due to IV fluid resuscitation for sepsis. -Hold Lasix at this time due to acute kidney injury 7. Paroxysmal A. fib -Patient currently sinus rhythm per EKG 8. Dyslipidemia -Continue simvastatin 40 mg p.o. 9. Gout -Continue daily allopurinol 10. Rheumatoid arthritis -Will continue Plaquenil at this time. Consider holding if kidney function worsens. 11. Stasis ulcer of both lower extremities -Chronic, will have wound nurse evaluate for further treatment. DVT prophylaxis-subcu heparin due to kidney function This patient was seen by CRISTIAN Barker under the supervision of Dr. Bradley.
[2021-03-10 18:16] LABS: Procalcitonin 0.37 ng/mL (0.00-0.09)
[2021-03-10] MEDS: 0.9% Normal Saline 1,000 ML 100 ML IV (20:01)
[2021-03-10] MEDS: Atorvastatin Calcium 10 MG Tablet PO (21:39)
[2021-03-10] MEDS: Hydroxychloroquine 200 MG Tablet PO (21:39)
[2021-03-10] MEDS: Acetaminophen 325 MG Tablet 650 MG PO (21:41)
[2021-03-10] MEDS: Heparin Injection (Vial) 5,000 UNIT/ML VIAL 5000 UNIT SC (21:42)
[2021-03-10 22:21] LABS: Bedside Glucose 101 mg/dL (70-110)
[2021-03-11 03:47] VITALS: BP 158/67; PULSE 78; RESP 18; TEMP 36.8; O2SAT 94
[2021-03-11] MEDS: Acetaminophen 325 MG Tablet 650 MG PO ×3 (03:55→20:00)
[2021-03-11] MEDS: 0.9% Normal Saline 1,000 ML 100 ML IV (05:26)
[2021-03-11 06:04] LABS: Absolute Lymphocyte Count 1.07 X10^3/uL (0.83-4.51); Basophil# 0.06 X10^3/uL; Basophil% 0.3 % (0-1); Eosinophil# 0.01 X10^3/uL; Hematocrit 26.3 % (37-47); Hemoglobin 8.3 g/dL (12.0-15.0); Lymphocyte # 1.07 X10^3/ul (4.0); Lymphocyte % 4.5 % (19-41); Mean Corp Hgb Conc 31.6 g/dL (32-36); Mean Corpuscular Hgb 30.1 pg (27.0-32.0); Mean Corpuscular Volume 95.3 fL (81-99); Mean Platelet Vol. 9.1 fl (6.2-12.0); Monocyte% 2.5 % (0-10); NRBC Flagged by Analyzer 0 % (0-5); Neutrophil # 22.03 X10^3/uL (2.7-7.7); Neutrophil % 91.9 % (47-70); POSITIVE DIFFERENTIAL YES; Platelet Count 248 K/mm3 (150-450); RBC Distribution Width CV 16.8 % (11.6-14.6); RBC Distribution Width SD 57.9 fl (35.1-43.9); Red Blood Count 2.76 M/mm3 (4.2-5.4)
[2021-03-11 06:15] LABS: Differential Indicated SCAN CRITERIA MET
[2021-03-11 06:31] LABS: ALB/GLOB Ratio 0.5 RATIO (0.9-2.4); AST(SGOT) 19 U/L (15-37); Alanine Aminotransfer ALT/SGPT 8 U/L (13-56); Albumin, Serum 2.1 g/dL (3.2-5.0); Alkaline Phosphatase 137 U/L (45-117); Anion Gap 9 (5-15); BUN 40 mg/dL (7-18); BUN/Creat Ratio 14.1 RATIO (10-20); Calcium,Total 8.3 mg/dL (8.5-10.1); Chloride 107 mmol/L (98-107); Creatinine, Serum 2.84 mg/dL (0.55-1.02); EST Glomerular Filtration Rate 17 mL/min (>60); Est Glom Filt Rate - Afr Amer 21 mL/min (>60); Estimated Creatinine Clearance 13.75 ml/min; Glucose 86 mg/dL (74-106); Potassium 3.6 mmol/L (3.5-5.1); Protein, Total 6.1 g/dL (6.4-8.2); Sodium Level 137 mmol/L (136-145)
[2021-03-11 07:00] LABS: Bedside Glucose 74 mg/dL (70-110)
[2021-03-11 07:03] VITALS: O2SAT 89
[2021-03-11] MEDS: Allopurinol 300 MG Tablet PO (08:42)
[2021-03-11] MEDS: Ferrous Sulfate 325 MG Tablet PO (08:42)
[2021-03-11] MEDS: Aspirin 81 MG TAB.CHEW PO (08:42)
[2021-03-11 09:10] VITALS: PULSE 92
[2021-03-11 09:12] VITALS: BP 167/62; PULSE 91; RESP 18; TEMP 36.8; O2SAT 93
--- NOTE | 2021-03-11 10:25 | NURSING ---
wound photo: right lower leg
--- NOTE | 2021-03-11 10:26 | NURSING ---
wound photo: right medial lower leg
--- NOTE | 2021-03-11 10:27 | NURSING ---
wound photo: left lower leg
--- NOTE | 2021-03-11 10:28 | NURSING ---
wound photo: left posteromedial lower leg
--- NOTE | 2021-03-11 10:40 | CASEMGMT ---
MAL BEY Assessment: Face to Face with pt for initial transition planning/care coordination assessment. MAL BEY introduced self and role at [facility], pt voices understanding and consents to assessment. Pt is A/O x4 and answers all questions appropriately at this time. Pt sitting up in chair in no distress. Care providers, pharmacy, and demographics verified/updated. Admitting Dx: UTI PCP: Sonja Feliciano WEB SITE ADMINISTRATOR Specialists: lizzie Vela; Roxanne, onc; Gilmer, rheumatology Preferred Pharmacy: [facility] Insurance: [employer] [facility] Prescription Benefit: yes LW/HPOA: Pt has a LW and DPOA, dtr More Stapleton. Documents are on file at [facility]. LNOK: Dtr, More Stapleton; son, Junior Stapleton Living Arrangements: Pt lives in a 2 story house with dtr and grandson. States it is a walk in basement with 10-11 steps to get to main level with rail. Pt reports I in ADL's. Pt denies concerns at home. Transportation: Pt drives self. Denies concerns with transportation. DME/HHC/SNF: Pt has a cane, walker and shower chair at home. She has had [facility] previously for HH and states she has been in a SNF in [place] in the past. Pt states no concerns with going home at time of dc. Pt states no further concerns/needs. CM to follow for antibiotic therapy. Advised pt to ask CM if any further question/concerns/needs arise, voices understanding. Pt Goal: Home Plan: Home and follow for need of IV antibiotics.
--- NOTE | 2021-03-11 10:41 | PCM.PN.HOSP ---
Patient Problems: Active and Suspected Problems (Last Reviewed 03/10/21 @ 17:44 by Taylor Catherine, BINDERY PRODUCTION MANAGER-C) UTI (urinary tract infection) (Acute) Cellulitis, leg (Acute) Sepsis syndrome (Acute) Sepsis (Acute) Stasis edema with ulcer of both lower extremities (Acute) Venous insufficiency of both lower extremities (Acute) Rheumatoid arthritis (Suspected) she sees Dr. Wiggins and is on Plaquenil and Prednisone Subjective: No further shortness of breath. No further incontinence. Vitals/I&O's: Vital Signs Temp Pulse Resp BP Pulse Ox 36.8 C 91 18 167/62 H 93 03/11/21 09:12 03/11/21 09:12 03/11/21 09:12 03/11/21 09:12 03/11/21 09:12 Oxygen Flow Rate (L/min) 2 Oxygen Delivery Method Room Air Weight: 82.8 kg Body Mass Index (BMI) 32.7 Finger Stick Blood Glucose 113 Intake and Output for Last 24 Hours 03/09/21 03/10/21 03/11/21 23:59 23:59 23:59 Intake Total 595 / 595 941.67 / 941.67 Output Total 125 / 125 350 / 350 Balance 470 / 470 591.67 / 591.67 General: Alert, No apparent distress HEENT: Atraumatic, Normocephalic Oral: Moist Mucosa, No Gingival or Mucosal Lesions/ Ulcerations Neck: No Nodes, Thyroid Normal Size and Texture Lungs: Clear to auscultation, Normal air movement, No rhonchi, No wheeze Cardiovascular: Regular rate, Regular Rhythm, Normal S1, Normal S2 Abdomen: Bowel Sounds Present, Soft, Non Tender, Non-Distended Extremities: No edema, No Calf Tenderness Psych/Mental Status: Normal Affect, Appropriate Microbiology Past 72 Hours 03/10/21 22:25 Urine, Clean Catch Legionella Antigen - Final 03/10/21 22:25 Urine, Clean Catch Streptococcus pneumoniae Antigen (M - Final 03/10/21 Unknown Mucosa - Nasopharyngeal Respiratory Panel (PCR) - Final 03/10/21 15:42 Mucosa - Nose SARS-CoV-2 Antigen (Rapid) - Final Laboratory Results 03/10/21 15:40: WBC 21.2 H, RBC 3.11 L, Hgb 9.3 L, Hct 29.0 L, MCV 93.2, MCH 29.9, MCHC 32.1, RDW Std Deviation 56.0 H, RDW Coeff of Raymond 16.5 H, Plt Count 283, MPV 9.7, Immature Gran % (Auto) 0.400, Neut % (Auto) 90.8 H, Lymph % (Auto) 4.2 L, [place] % (Auto) 3.4, Eos % (Auto) 0.9, Baso % (Auto) 0.3, Absolute Neuts (auto) 19.3 H, Absolute Lymphs (auto) 0.90, Nucleated RBC % 0 03/10/21 15:40: PT 13.2, INR 1.1, APTT 32.0 03/10/21 15:40: Sodium 136, Potassium 4.1, Chloride 105, Carbon Dioxide 21.0, Anion Gap 10, BUN 43 H, Creatinine 2.91 H, Estim Creat Clear Calc 13.41, Est GFR (MDRD) Af Amer 20 L, Est GFR (MDRD) Non-Af 17 L, BUN/Creatinine Ratio 14.8, Glucose 110 H, Calcium 8.8, Total Bilirubin 0.80, AST 66 H, ALT 12 L, Alkaline Phosphatase 156 H, Troponin I 0.016, Total Protein 7.8, Albumin 2.5 L, Globulin 5.3 H, Albumin/Globulin Ratio 0.5 L 03/10/21 15:40: Lactic Acid 0.8 03/10/21 15:40: Magnesium 2.0 03/10/21 15:40: Procalcitonin 0.37 H 03/10/21 15:50: Urine Color Yellow, Urine Clarity Cloudy, Urine pH 6.0, Ur Specific [place] 1.015, Urine Protein 500 H, Urine Glucose (UA) 50 H, Urine Ketones Negative, Urine Occult Blood 150 H, Urine Nitrite Negative, Urine Bilirubin Negative, Urine Urobilinogen Normal, Ur Leukocyte Esterase 500 H, Urine RBC 5-10 SEEN, Urine WBC >100 SEEN, Ur Squamous Epith Cells 0-5 SEEN, Urine Bacteria RARE, Urine Mucus 0 SEEN 03/10/21 21:47: POC Glucose 101 03/11/21 05:40: WBC 24.0 H, RBC 2.76 L, Hgb 8.3 L, Hct 26.3 L, MCV 95.3, MCH 30.1, MCHC 31.6 L, RDW Std Deviation 57.9 H, RDW Coeff of Raymond 16.8 H, Plt Count 248, MPV 9.1, Immature Gran % (Auto) 0.800, Neut % (Auto) 91.9 H, Lymph % (Auto) 4.5 L, [place] % (Auto) 2.5, Eos % (Auto) 0.0, Baso % (Auto) 0.3, Absolute Neuts (auto) 22.0 H, Absolute Lymphs (auto) 1.07, Nucleated RBC % 0 03/11/21 05:40: Sodium 137, Potassium 3.6, Chloride 107, Carbon Dioxide 21.0, Anion Gap 9, BUN 40 H, Creatinine 2.84 H, Estim Creat Clear Calc 13.75, Est GFR (MDRD) Af Amer 21 L, Est GFR (MDRD) Non-Af 17 L, BUN/Creatinine Ratio 14.1, Glucose 86, Calcium 8.3 L, Total Bilirubin 0.50, AST 19, ALT 8 L, Alkaline Phosphatase 137 H, Total Protein 6.1 L, Albumin 2.1 L, Globulin 4.0, Albumin/Globulin Ratio 0.5 L 03/11/21 06:55: POC Glucose 74 Current Medications Acetaminophen (Acetaminophen 325 Mg Tablet) 650 mg PO Q6H PRN PRN PRN Reason: Pain Score 1-10/Temp > 100.7 F Last Admin: 03/11/21 03:55 Dose: 650 mg Documented by: Albuterol Sulfate (Albuterol 2.5 Mg/3 Ml Vial.Neb.) 2.5 mg INHALATION Q2H PRN PRN PRN Reason: Shortness of Breath/Wheezing Allop[facility]ol ([facility] 300 Mg Tablet) [facility] Last Admin: 03/11/21 08:42 Dose: 300 mg Documented by: Amlodipine Besylate (Amlodipine 10 Mg Tablet) 10 mg PO DAILY [facility] Aspirin (Aspirin 81 Mg Tab.Chew) 81 mg PO DAILY@0800 [facility] Last Admin: 03/11/21 08:42 Dose: 81 mg Documented by: Atorvastatin Calcium (Atorvastatin Calcium 10 Mg Tablet) 10 mg PO QHS [facility] Last Admin: 03/10/21 21:39 Dose: 10 mg Documented by: Docusate Sodium (Docusate Sodium 100 Mg Capsule) 100 mg PO BID PRN PRN PRN Reason: Constipation Ferrous Sulfate (Ferrous Sulfate 325 Mg Tablet) 325 mg PO DAILYCM [facility] Last Admin: 03/11/21 08:42 Dose: 325 mg Documented by: Heparin Sodium (Porcine) (Heparin Injection (Vial) 5,000 Unit/Ml Vial) 5,000 unit SC Q12 [facility] Last Admin: 03/10/21 21:42 Dose: 5,000 unit Documented by: Hydralazine HCl (Hydralazine 20 Mg/Ml Vial) 10 mg IV Q4H PRN PRN PRN Reason: SBP > 160 Hydroxychloroquine Sulfate (Hydroxychloroquine 200 Mg Tablet) 200 mg PO QHS [facility] Last Admin: 03/10/21 21:39 Dose: 200 mg Documented by: Sodium Chloride () 1,000 mls @ 100 mls/hr IV .Q10H [facility] Stop: 03/11/21 13:46 Last Admin: 03/11/21 05:26 Dose: 100 mls/hr Documented by: Meropenem 500 mg/ Sodium (Chloride) 60 mls @ 100 mls/hr IV Q12 [facility] Last Infusion: 03/10/21 22:15 Dose: Infused Documented by: Sodium Chloride () 250 mls @ 15 mls/hr IV .[id number] PRN PRN Reason: Saline Flush Insulin Glargine (Insulin Glargine 100 Units/Ml Pen) 8 units SC QHS [facility] Last Admin: 03/10/21 21:49 Dose: Not Given Documented by: Insulin Human Lispro (Insulin Lispro 100 Unit/Ml Insuln.Pen) 0 unit SC ACHS [facility]; Protocol Last Admin: 03/11/21 07:01 Dose: Not Given Documented by: Melatonin (Melatonin 3 Mg Tablet) 3 mg PO QHS PRN PRN PRN Reason: INSOMNIA Nystatin (Nystatin Powder 15gm Bottle) 1 applic TOPICAL BID [facility]; Protocol Ondansetron HCl (Ondansetron 4 Mg/2 Ml Vial) 4 mg IV Q8H PRN PRN PRN Reason: NAUSEA/VOMITING Sodium Chloride (0.9% Saline Lock 10 Ml Syringe) 10 - 40 ml IV UD PRN PRN Reason: SALINE FLUSH STROKE Vital Signs/Narrative: Vital Signs Temp Pulse Resp BP Pulse Ox 03/11/21 09:12 36.8 C 91 18 167/62 H 93 03/11/21 07:03 89 Medical Necessity - Tobacco Use Smoking Status: Never smoker Assessment/Plan All Active Problems (Last Reviewed 03/10/21 @ 17:44 by Taylor Catherine, BINDERY PRODUCTION MANAGER-C) UTI (urinary tract infection) (Acute) Cellulitis, leg (Acute) Sepsis syndrome (Acute) Sepsis (Acute) Stasis edema with ulcer of both lower extremities (Acute) Venous insufficiency of both lower extremities (Acute) Elevated d-dimer (Acute) Acute cystitis (Acute) DILCIA (acute kidney injury) (Resolved) Afib (Resolved) Chronic ulcer of left leg with fat layer exposed (Resolved) DVT (deep venous thrombosis) (Resolved) Nonhealing ulcer of left lower extremity with fat layer exposed (Resolved) Pulmonary emboli (Resolved) Severe sepsis (Resolved) UTI (urinary tract infection) (Resolved) Venous stasis ulcer of leg without varicose veins (Resolved) Wound abscess (Resolved) Chronic articular rheumatism (Ruled-out) Chronic foot ulcer (Ruled-out) Pyoderma gangrenosum (Ruled-out) 1. sepsis POA 2/2 UTI resolved follow up cultures 2. UTI ongoing on meropenem follow up UCx and adjust abx accordingly complicated by multiple Rx allergies/adverse rxn 3. Acute hypoxic respiratory insufficiency resolved unclear etiology rapid COVID-19 and resp panel negative 4. CKD-4 Creatinine up from August Continue to monitor 5. DM2 fair control on glargine and SSI 6. Anemia: stable monitor 7. VTE prophylaxis: SQ heparin. Inpatient E&M: 29042 Subs Hosp L2
[2021-03-11] MEDS: amLODIPine 10 MG Tablet PO (11:00)
[2021-03-11] MEDS: Nystatin Powder 15gm Bottle 1 APPLIC TOPICAL ×2 (11:00→21:20)
[2021-03-11] MEDS: Heparin Injection (Vial) 5,000 UNIT/ML VIAL 5000 UNIT SC ×2 (11:02→21:12)
[2021-03-11 11:36] LABS: Bedside Glucose 95 mg/dL (70-110)
[2021-03-11] MEDS: Glucerna Shake 120 ML LIQUID PO ×2 (15:14→21:12)
[2021-03-11] MEDS: 0.9% Saline Lock 10 ML Syringe IV (15:54)
[2021-03-11 16:22] VITALS: BP 149/56; PULSE 90; RESP 16; TEMP 37; O2SAT 92
[2021-03-11 16:35] LABS: Bedside Glucose 112 mg/dL (70-110)
[2021-03-11 19:53] VITALS: BP 153/64; PULSE 110; RESP 18; TEMP 37.4; O2SAT 92
[2021-03-11] MEDS: Atorvastatin Calcium 10 MG Tablet PO (21:13)
[2021-03-11] MEDS: Hydroxychloroquine 200 MG Tablet PO (21:19)
[2021-03-11 21:46] LABS: Bedside Glucose 134 mg/dL (70-110)
[2021-03-12] VITALS (7 sets, daily range): BP systolic 135–169; BP diastolic 63–74; PULSE 87–94; RESP 16–18; TEMP 36.6–36.8; O2SAT 90–95
[2021-03-12] MEDS: Acetaminophen 325 MG Tablet 650 MG PO ×2 (02:10→18:25)
--- NOTE | 2021-03-12 05:55 | RAD_ITS ---
STUDY: X-RAY CHEST REASON FOR EXAM: Female, 75 years old. SOB TECHNIQUE: Single AP portable view of the chest. COMPARISON: Comparison is made with prior study dated 03/10/2021. FINDINGS: Is evidence of vascular congestion and mild degree of CHF. Increased markings at the lung bases slightly more prominent on the left side suggestive of atelectasis and/or early infiltrate. There is blunting of both costophrenic angles. There is mild cardiac enlargement. Normal mediastinum and lalit. Normal visualized pulmonary arteries. There is atherosclerotic calcification of the aortic arch with tortuosity. There are diffuse degenerative changes of the visualized thoracic spine. There is degenerative osteoarthritis of the bilateral shoulders. There is no demonstrated abnormality of the visualized soft tissue structures of the upper abdomen. RAD/Chest 1 View (Portable) IMPRESSION: Mild degree of vascular congestion with atelectasis at the lung bases with blunting of both prostatic angles. There has been mild improvement. Electronically Signed: Jonny Clemente MD at 12:16 EDT , Service support ,
[2021-03-12 06:08] LABS: Absolute Lymphocyte Count 1.23 X10^3/uL (0.83-4.51); Basophil# 0.06 X10^3/uL; Basophil% 0.4 % (0-1); Eosinophil# 0.14 X10^3/uL; Hematocrit 27.9 % (37-47); Hemoglobin 8.5 g/dL (12.0-15.0); Lymphocyte # 1.23 X10^3/ul (4.0); Lymphocyte % 8.7 % (19-41); Mean Corp Hgb Conc 30.5 g/dL (32-36); Mean Corpuscular Hgb 29.7 pg (27.0-32.0); Mean Corpuscular Volume 97.6 fL (81-99); Mean Platelet Vol. 9.8 fl (6.2-12.0); Monocyte# 0.57 X10^3/uL; NRBC Flagged by Analyzer 0 % (0-5); Neutrophil # 12.01 X10^3/uL (2.7-7.7); Neutrophil % 85.1 % (47-70); Platelet Count 263 K/mm3 (150-450); RBC Distribution Width CV 16.7 % (11.6-14.6); RBC Distribution Width SD 58.8 fl (35.1-43.9); Red Blood Count 2.86 M/mm3 (4.2-5.4); White Blood Count 14.1 K/mm3 (4.4-11.0)
[2021-03-12 06:30] LABS: Bedside Glucose 101 mg/dL (70-110)
[2021-03-12 06:31] LABS: Anion Gap 8 (5-15); BUN 38 mg/dL (7-18); BUN/Creat Ratio 13.9 RATIO (10-20); Calcium,Total 8.4 mg/dL (8.5-10.1); Chloride 109 mmol/L (98-107); Creatinine, Serum 2.73 mg/dL (0.55-1.02); EST Glomerular Filtration Rate 18 mL/min (>60); Est Glom Filt Rate - Afr Amer 22 mL/min (>60); Glucose 103 mg/dL (74-106); Potassium 3.5 mmol/L (3.5-5.1); Sodium Level 139 mmol/L (136-145)
--- NOTE | 2021-03-12 07:26 | CPS ---
sputum cup placed at bedside and pt instructed to place sample in container if able to.
[2021-03-12] MEDS: Allopurinol 300 MG Tablet PO (09:44)
[2021-03-12] MEDS: Glucerna Shake 120 ML LIQUID PO ×3 (09:44→22:14)
[2021-03-12] MEDS: Nystatin Powder 15gm Bottle 1 APPLIC TOPICAL ×2 (09:44→22:17)
[2021-03-12] MEDS: Aspirin 81 MG TAB.CHEW PO (09:44)
[2021-03-12] MEDS: Heparin Injection (Vial) 5,000 UNIT/ML VIAL 5000 UNIT SC ×2 (09:44→22:15)
[2021-03-12] MEDS: Ferrous Sulfate 325 MG Tablet PO (09:44)
[2021-03-12] MEDS: amLODIPine 10 MG Tablet PO (09:44)
--- NOTE | 2021-03-12 10:04 | CT_ITS ---
STUDY: CT CHEST WITHOUT CONTRAST REASON FOR EXAM: Female, 75 years old. Right hilar adenopathy RADIATION DOSAGE (If Supplied By Facility): CTDIvol = ( 18.02 ) mGy, DLP = ( 571.86 ) mGycm TECHNIQUE: Transaxial imaging was performed without the administration of intravenous contrast material. Multiplanar coronal and sagittal images were reformatted. Individualized dose optimization techniques were used for this CT. COMPARISON: Comparison is made with prior examination of 02/24/2018. FINDINGS: Diffuse heterogeneous enlargement of the thyroid with prominence of the isthmus. Focal calcification along the inferior aspect of the left lobe of the thyroid Bibasilar atelectasis and/or early infiltrates. Small bilateral pleural effusions slightly worse on the right side. There are calcifications of the coronary arteries. Cardiomegaly. There are multiple small lymph nodes within the mediastinum, which are normal in size and morphology most compatible with reactive lymph hyperplasia. Normal hilar regions. There is prominence of the pulmonary hilar arteries without peripheral pulmonary vascular congestion, suggesting pulmonary hypertension. There is atherosclerotic calcification of the aortic arch with tortuosity and elongation of the aortic arch and descending thoracic aorta. There are multi-level degenerative changes of the thoracic spine. There is a 3.6 cm x 5.3 cm cyst in the upper pole of the right kidney. CT/Chest without Contrast IMPRESSION: Bilateral pleural effusions right greater than left with bibasilar atelectasis and/or infiltrates. Stable prominence of the pulmonary arteries bilaterally. Coronary artery calcification. Electronically Signed: Jonny Clemente MD at 11:10 EDT , Service support ,
--- NOTE | 2021-03-12 11:18 | CASEMGMT ---
[facility] Palliative Care Screening Tool completed due to Strata 3. Pt met criteria. Order received from , faxed referral to Palliative and spoke with Hoa to confirm receipt.
[2021-03-12] MEDS: 0.9% Saline Lock 10 ML Syringe IV ×2 (11:19→16:02)
[2021-03-12] MEDS: Furosemide 40 MG/4 ML Vial IV (11:19)
[2021-03-12 11:35] LABS: Bedside Glucose 107 mg/dL (70-110)
--- NOTE | 2021-03-12 14:01 | PCM.PN.HOSP ---
Patient Problems: Active and Suspected Problems (Last Reviewed 03/10/21 @ 17:44 by Taylor Catherine, AUTOMOTIVE COLLISION ESTIMATOR-C) UTI (urinary tract infection) (Acute) Cellulitis, leg (Acute) Sepsis syndrome (Acute) Sepsis (Acute) Stasis edema with ulcer of both lower extremities (Acute) Venous insufficiency of both lower extremities (Acute) Rheumatoid arthritis (Suspected) she sees Dr. Wiggins and is on Plaquenil and Prednisone Subjective: Feeling well. Anxious to go home. Vitals/I&O's: Vital Signs Temp Pulse Resp BP Pulse Ox 36.6 C 87 18 169/74 H 94 03/12/21 09:24 03/12/21 09:24 03/12/21 09:24 03/12/21 09:24 03/12/21 09:24 Oxygen Flow Rate (L/min) 2 Oxygen Delivery Method Room Air Weight: 82.8 kg Body Mass Index (BMI) 32.7 Finger Stick Blood Glucose 113 Intake and Output for Last 24 Hours 03/10/21 03/11/21 03/12/21 23:59 23:59 23:59 Intake Total 595 / 595 2658.34 / 2658.34 320 / 320 Output Total 125 / 125 550 / 550 Balance 470 / 470 2108.34 / 2108.34 320 / 320 General: Alert, No apparent distress HEENT: Atraumatic, Normocephalic Oral: Moist Mucosa, No Gingival or Mucosal Lesions/ Ulcerations Neck: No Nodes, Thyroid Normal Size and Texture Lungs: Clear to auscultation, Normal air movement, No rhonchi, No wheeze, No rales Cardiovascular: Regular rate, Regular Rhythm, Normal S1, Normal S2, - - 2/6 JAVAD at RUSB Abdomen: Bowel Sounds Present, Soft, Non Tender, Non-Distended, No Hepato-splenomegaly Extremities: No Calf Tenderness, Edema Skin: No rashes, No breakdown Psych/Mental Status: Normal Affect, Appropriate Microbiology Past 72 Hours 03/10/21 15:50 Urine, Clean Catch Urine Culture - Final Mixed Gram Positive Organisms 03/10/21 22:25 Urine, Clean Catch Legionella Antigen - Final 03/10/21 22:25 Urine, Clean Catch Streptococcus pneumoniae Antigen (M - Final 03/10/21 Unknown Mucosa - Nasopharyngeal Respiratory Panel (PCR) - Final 03/10/21 15:42 Mucosa - Nose SARS-CoV-2 Antigen (Rapid) - Final Laboratory Results 03/11/21 16:29: POC Glucose 112 H 03/11/21 21:17: POC Glucose 134 H 03/12/21 05:44: WBC 14.1 H, RBC 2.86 L, Hgb 8.5 L, Hct 27.9 L, MCV 97.6, MCH 29.7, MCHC 30.5 L, RDW Std Deviation 58.8 H, RDW Coeff of [place] 16.7 H, Plt Count 263, MPV 9.8, Immature Gran % (Auto) 0.800, Neut % (Auto) 85.1 H, Lymph % (Auto) 8.7 L, [place] % (Auto) 4.0, Eos % (Auto) 1.0, Baso % (Auto) 0.4, Absolute Neuts (auto) 12.0 H, Absolute Lymphs (auto) 1.23, Nucleated RBC % 0 03/12/21 05:44: Sodium 139, Potassium 3.5, Chloride 109 H, Carbon Dioxide 22.0, Anion Gap 8, BUN 38 H, Creatinine 2.73 H, Estim Creat Clear Calc 14.30, Est GFR (MDRD) Af Amer 22 L, Est GFR (MDRD) Non-Af 18 L, BUN/Creatinine Ratio 13.9, Glucose 103, Calcium 8.4 L 03/12/21 06:24: POC Glucose 101 03/12/21 11:33: POC Glucose 107 Current Medications Acetaminophen (Acetaminophen 325 Mg Tablet) 650 mg PO Q6H PRN PRN PRN Reason: Pain Score 1-10/Temp > 100.7 F Last Admin: 03/12/21 02:10 Dose: 650 mg Documented by: Albuterol Sulfate (Albuterol 2.5 Mg/3 Ml Vial.Neb.) 2.5 mg INHALATION Q2H PRN PRN PRN Reason: Shortness of Breath/Wheezing [facility] ([facility] 300 Mg [facility]) [facility] Last Admin: 03/12/21 09:44 Dose: 300 mg Documented by: Amlodipine Besylate (Amlodipine 10 Mg Tablet) 10 mg PO DAILY [facility] Last Admin: 03/12/21 09:44 Dose: 10 mg Documented by: Aspirin (Aspirin 81 Mg Tab.Chew) 81 mg PO DAILY@0800 [facility] Last Admin: 03/12/21 09:44 Dose: 81 mg Documented by: Atorvastatin Calcium (Atorvastatin Calcium 10 Mg Tablet) 10 mg PO QHS [facility] Last Admin: 03/11/21 21:13 Dose: 10 mg Documented by: Docusate Sodium (Docusate Sodium 100 Mg Capsule) 100 mg PO BID PRN PRN PRN Reason: Constipation Ferrous Sulfate (Ferrous Sulfate 325 Mg Tablet) 325 mg PO DAILYCM [facility] Last Admin: 03/12/21 09:44 Dose: 325 mg Documented by: Heparin Sodium (Porcine) (Heparin Injection (Vial) 5,000 Unit/Ml Vial) 5,000 unit SC Q12 [facility] Last Admin: 03/12/21 09:44 Dose: 5,000 unit Documented by: Hydralazine HCl (Hydralazine 20 Mg/Ml Vial) 10 mg IV Q4H PRN PRN PRN Reason: SBP > 160 Hydroxychloroquine Sulfate (Hydroxychloroquine 200 Mg Tablet) 200 mg PO QHS [facility] Last Admin: 03/11/21 21:19 Dose: 200 mg Documented by: Sodium Chloride () 250 mls @ 15 mls/hr IV .[id number] PRN PRN Reason: Saline Flush Insulin Glargine (Insulin Glargine 100 Units/Ml Pen) 8 units SC QHS [facility] Last Admin: 03/11/21 21:18 Dose: 8 u Documented by: Insulin Human Lispro (Insulin Lispro 100 Unit/Ml Insuln.Pen) 0 unit SC ACHS [facility]; Protocol Last Admin: 03/12/21 11:44 Dose: Not Given Documented by: Melatonin (Melatonin 3 Mg Tablet) 3 mg PO QHS PRN PRN PRN Reason: INSOMNIA Nutritional Formula (Lactose Free) (Glucerna Shake 120 Ml Liquid) 120 ml PO 4X/DAY [facility] Last Admin: 03/12/21 09:44 Dose: 120 ml Documented by: Nystatin (Nystatin Powder 15gm Bottle) 1 applic TOPICAL BID [facility]; Protocol Last Admin: 03/12/21 09:44 Dose: 1 applic Documented by: Ondansetron HCl (Ondansetron 4 Mg/2 Ml Vial) 4 mg IV Q8H PRN PRN PRN Reason: NAUSEA/VOMITING Sodium Chloride (0.9% Saline Lock 10 Ml Syringe) 10 - 40 ml IV UD PRN PRN Reason: SALINE FLUSH Last Admin: 03/12/21 11:19 Dose: 10 ml Documented by: Medical Necessity - Tobacco Use Smoking Status: Never smoker Assessment/Plan All Active Problems (Last Reviewed 03/10/21 @ 17:44 by Taylor Catherine, SAMANTA-C) UTI (urinary tract infection) (Acute) Cellulitis, leg (Acute) Sepsis syndrome (Acute) Sepsis (Acute) Stasis edema with ulcer of both lower extremities (Acute) Venous insufficiency of both lower extremities (Acute) Elevated d-dimer (Acute) Acute cystitis (Acute) DILCIA (acute kidney injury) (Resolved) Afib (Resolved) Chronic ulcer of left leg with fat layer exposed (Resolved) DVT (deep venous thrombosis) (Resolved) Nonhealing ulcer of left lower extremity with fat layer exposed (Resolved) Pulmonary emboli (Resolved) Severe sepsis (Resolved) UTI (urinary tract infection) (Resolved) Venous stasis ulcer of leg without varicose veins (Resolved) Wound abscess (Resolved) Chronic articular rheumatism (Ruled-out) Chronic foot ulcer (Ruled-out) Pyoderma gangrenosum (Ruled-out) 1. SIRS POA sepsis ruled out resolved follow up cultures 2. bacteruria UTI ruled out ongoing UCx growing out 1000-10k CFU of mixed GPO. DC'd meropenem and will observe overnight for fever. Given patient's extensive list of allergies/adverse reaction, she likely could not be simply placed on an oral agent. 3. Acute hypoxic respiratory insufficiency resolved unclear etiology rapid COVID-[address] and resp panel negative CT w/o contrast showed normal size LN in mediastinum likely 2/2 CHF exacerbation 4. Acute HFpEF EF 60% with pleural effusion complicated by pulmonary HTN (42mmHg) give 1x dose of IV furosemide start PO furosemide this evening. 5. CKD-4 Creatinine up from August Continue to monitor no need for TRIAGE ASSISTANT follow up with nephrology as outpt 6. DM2 fair control on glargine and SSI 7. Anemia: stable monitor 8. VTE prophylaxis: SQ heparin. Inpatient E&M: [id number] Subs Hosp L2
[2021-03-12] MEDS: hydrALAZINE 20 MG/ML Vial 10 MG IV (16:02)
[2021-03-12 17:15] LABS: Bedside Glucose 116 mg/dL (70-110)
[2021-03-12] MEDS: Furosemide 40 MG Tablet PO (18:23)
[2021-03-12] MEDS: Atorvastatin Calcium 10 MG Tablet PO (22:15)
[2021-03-12] MEDS: Hydroxychloroquine 200 MG Tablet PO (22:15)
[2021-03-12 22:30] LABS: Bedside Glucose 95 mg/dL (70-110)
[2021-03-13] VITALS (7 sets, daily range): BP systolic 151–152; BP diastolic 78–80; PULSE 85–140; RESP 16; TEMP 36.6–36.8; O2SAT 92–97
[2021-03-13 06:55] LABS: Bedside Glucose 80 mg/dL (70-110)
[2021-03-13 07:11] LABS: Anion Gap 5 (5-15); BUN 39 mg/dL (7-18); BUN/Creat Ratio 14.1 RATIO (10-20); Calcium,Total 8.1 mg/dL (8.5-10.1); Chloride 110 mmol/L (98-107); Creatinine, Serum 2.76 mg/dL (0.55-1.02); EST Glomerular Filtration Rate 18 mL/min (>60); Est Glom Filt Rate - Afr Amer 22 mL/min (>60); Estimated Creatinine Clearance 14.14 ml/min; Glucose 86 mg/dL (74-106); Potassium 3.4 mmol/L (3.5-5.1); Sodium Level 139 mmol/L (136-145)
[2021-03-13] MEDS: Aspirin 81 MG TAB.CHEW PO (07:58)
[2021-03-13] MEDS: Ferrous Sulfate 325 MG Tablet PO (07:59)
[2021-03-13] MEDS: Allopurinol 300 MG Tablet PO (07:59)
--- NOTE | 2021-03-13 09:06 | DCINST_ITS ---
- Discharge Diagnoses Current Active Problems: Current Active and Chronic Problems (Last Reviewed 03/10/21 @ 17:44 by Taylor Catherine NP-C) UTI (urinary tract infection) (Acute) Cellulitis, leg (Acute) Sepsis syndrome (Acute) Sepsis (Acute) Acute kidney injury superimposed on chronic kidney disease (Chronic) Stasis edema with ulcer of both lower extremities (Acute) Venous insufficiency of both lower extremities (Acute) CHF (congestive heart failure) (Chronic) Essential hypertension (Chronic) Paroxysmal atrial fibrillation (Chronic) DM2 (diabetes mellitus, type 2) (Chronic) Dyslipidemia (Chronic) Gout (Chronic) You will use the following diet at home:: Fluid restricted (specify 2000 mls, 1500 mls) - 1500 Your food should be the consistency of: Regular Your liquids should be the consistency of: Regular/Thin Instructions: What Is Heart Failure?, Heart Failure: Warning Signs of a Flare- Up, Heart Failure: Tracking Your Weight, Heart Failure: Procedures That May Help, Heart Failure: Making Changes to Your Diet, Heart Failure Allergies/Adverse Reactions: Allergies cefepime HCl [From Maxipime] Allergy (Verified 03/10/21 15:32) Itching cephalexin monohydrate [From Keflex] Allergy (Verified 03/10/21 15:32) Hives clopidogrel [From Plavix] Allergy (Verified 03/10/21 15:32) Itching and hives all over piperacillin [From Zosyn] Allergy (Verified 03/10/21 15:32) Hives tazobactam [From Zosyn] Allergy (Verified 03/10/21 15:32) Hives ciprofloxacin [From Cipro] Adverse Reaction (Verified 03/10/21 15:32) Itching hydromorphone HCl [From Dilaudid] Adverse Reaction (Verified 03/10/21 15:32) Itching Medications to take at Discharge Allopurinol 300 mg PO DAILY 10/16/18 Aspirin [Aspirin, Baby] 81 mg PO DAILY@0800 10/16/18 Hydroxychloroquine [Plaquenil] 200 mg PO QHS 10/16/18 Insulin Glargine,Hum.rec.anlog [Lantus] 8 unit SQ QHS 10/16/18 simvastatin 40 mg tablet 20 mg PO QHS tab 09/05/19 Docusate Sodium [Colace] 100 mg PO BID PRN PRN #60 cap 07/03/20 ferrous sulfate 325 mg (65 mg iron) tablet 325 mg PO DAILY 08/15/20 Amlodipine Besylate [Norvasc] 10 mg PO DAILY 03/10/21 Acetaminophen [Tylenol Tablet] 650 mg PO Q6H PRN PRN tablet 03/13/21 Furosemide [Lasix] 40 mg PO DAILY #30 tablet 03/13/21 Potassium Chloride Oral Tablet [K-Dur] 10 meq PO DAILY #30 tab 03/13/21 The following prescriptions were given: Potassium Chloride Oral Tablet [K-Dur] 10 meq PO DAILY #30 tab Transmission Status: Pending to [facility] Furosemide [Lasix] 40 mg PO DAILY #30 tablet Transmission Status: Pending to [facility] Primary Care Physician: Sonja Feliciano AGENCY APPOINTMENTS SUPERVISOR, AGENCY APPOINTMENTS SUPERVISOR-C [Primary Care Provider] - Within 2 Weeks Test Results: Test results from this visit will be discussed in further detail at your follow- up appointment, if applicable. Please Follow Up With: Gustavo Piña MD When: 03/27/2021, already scheduled Please Follow Up With: Blanca Vela DO When: 2-4 weeks Please Follow Up With: Gustavo Oliveira DO When: next scheduled appointment Proposed Discharge Date: 03/13/21
--- NOTE | 2021-03-13 09:09 | DS.PCM_ITS ---
Discharge Date and Diagnosis - Problem List Patient Problems: Active and Suspected Problems (Last Reviewed 03/10/21 @ 17:44 by Taylor Catherine NP-C) UTI (urinary tract infection) (Acute) Cellulitis, leg (Acute) Sepsis syndrome (Acute) Sepsis (Acute) Stasis edema with ulcer of both lower extremities (Acute) Venous insufficiency of both lower extremities (Acute) Rheumatoid arthritis (Suspected) she sees Dr. Wiggins and is on Plaquenil and Prednisone Date of Admission: 03/10/21 Date of Discharge: 03/13/21 - Primary Discharge Diagnosis Acute Problems: Active Problems (Last Reviewed 03/10/21 @ 17:44 by Taylor Catherine NP-C) 1. SIRS POA sepsis ruled out resolved follow up cultures 2. bacteruria UTI ruled out ongoing UCx growing out 1000-10k CFU of mixed GPO. DC'd meropenem and will observe overnight for fever. Given patient's extensive list of allergies/adverse reaction, she likely could not be simply placed on an oral agent. 3. Acute hypoxic respiratory insufficiency resolved due to CHF and pleural effusions rapid COVID-19 and resp panel negative CT w/o contrast showed normal size LN in mediastinum likely 2/2 CHF exacerbation 4. Acute HFpEF EF 60% with pleural effusion complicated by pulmonary HTN (42mmHg) give 1x dose of IV furosemide Continue furosemide 40 daily (up from 20) with concomitant 5. 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 Wiggins and is on Plaquenil and Prednisone - Secondary Discharge Diagnosis Chronic Problems: Chronic Problems (Last Reviewed 03/10/21 @ 17:44 by Taylor Catherine NP-C) Acute kidney injury superimposed on chronic kidney disease (Chronic) Wound of right lower extremity (Chronic) Traumatic, penetrating with fat layer exposed. 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 (Chronic) Chronic renal failure, stage 4 (severe) (Chronic) Chronic steroid use (Chronic) Morbid obesity with BMI of 45.0-49.9, adult (Chronic) Osteopenia (Chronic) Pulmonary hypertension (Chronic) Personal history of DVT (deep vein thrombosis) (Chronic) Presence of IVC filter (Chronic) Ulcer of left lower extremity with fat layer exposed (Chronic) mixed venous arterial left posterior calf Lymphedema (Chronic) PVD (peripheral vascular disease) (Chronic) Paroxysmal atrial fibrillation (Chronic) S/P angioplasty with stent (Chronic ~12/05/16) EDGARDO to mid LAD 12/05/2016 DM2 (diabetes mellitus, type 2) (Chronic) Dyslipidemia (Chronic) Depression (Chronic) Gout (Chronic) 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 Decrease prominence of the pulmonary interstitial markings with clearing of the bilateral pleural fluid. 2. Prominent right hilum uncertain for adenopathy. HRCT chest will help clarify if desired. Electronically Signed: Mahamed Fortune MD at 15:44 EDT , Service support , Chest X-Ray 03/12/21 05:55 IMPRESSION: Mild degree of vascular congestion with atelectasis at the lung bases with blunting of both prostatic angles. There has been mild improvement. Electronically Signed: Jonny Clemente MD at 12:16 EDT , Service support , Chest CT 03/12/21 10:04 IMPRESSION: Bilateral pleural effusions right greater than left with bibasilar atelectasis and/or infiltrates. Stable prominence of the pulmonary arteries bilaterally. Coronary artery calcification. Electronically Signed: Jonny Clemente MD at 11:10 EDT , Service support , Consultations 03/10/21 17:47 Consult: Onc/Wound/agency service representative Routine Comment: Reason for Consult:: stasis ulcers to b/l leg Operations: None Procedures: None Summary of Care Provided: The patient is a 75 year old F shortness of breath and increased incontinence. Patient was apparently having fevers as well. Concern was for sepsis due to UTI and patient's urinalysis was abnormal. Patient was started on meropenem given her extensive list of medication allergies/adverse reactions. Urine culture came back showing only thousand to 10,000 gram-positive organisms. Lewis to be either colonization or contaminant and not otherwise treated. Antibiotics were discontinued on the patient was observed. Patient was observed primarily in case she were to develop a fever that may be a sign that this would be a true infection with inconclusive urine culture and that she would be best suited staying in the hospital to ensure that if she were to require antibiotics it would have to be IV rather than being sent oral medications to his pharmacy just given her extensive allergy history and adverse reactions to myriad of medications. (Whether or not these are true allergic reactions may be best suited by being evaluated by an sander wooden pencils). Patient did have dyspnea and did have an abnormal x-ray so patient did have a CT of her chest without contrast that showed stable lymphadenopathy and showed pleural effusions. This was concerning for acute heart failure. Patient has previous an echocardiogram that showed an EF of 60% with elevated pulmonary pressures of 42 mmHg. Patient was started on Lasix and has done well. Patient did have some dyspnea with exertion last night. Patient had amatory pulse ox to see if she would require oxygen with activity upon discharge. Patient's creatinine has been up since August but stable during this hospitalization. Patient will need to follow-up with nephrology for further management. No need for renal replacement therapy at this time. [] Patient Problems: Active and Suspected Problems (Last Reviewed 03/10/21 @ 17:44 by Taylor Catherine, DISTRIBUTION ANALYST-C) UTI (urinary tract infection) (Acute) Cellulitis, leg (Acute) Sepsis syndrome (Acute) Sepsis (Acute) Stasis edema with ulcer of both lower extremities (Acute) Venous insufficiency of both lower extremities (Acute) Rheumatoid arthritis (Suspected) she sees Dr. Wiggins and is on Plaquenil and Prednisone - Physical Exam Vitals/I&O's: Vital Signs Temp Pulse Resp BP Pulse Ox 36.8 C 85 16 152/80 H 94 03/13/21 02:15 03/13/21 02:15 03/13/21 02:15 03/13/21 02:15 03/13/21 08:36 Oxygen Flow Rate (L/min) 2 Oxygen Delivery Method Room Air Weight: 82.7 kg Body Mass Index (BMI) 32.7 Finger Stick Blood Glucose 113 Intake and Output for Last 24 Hours 03/11/21 03/12/21 03/13/21 23:59 23:59 23:59 Intake Total 2658.34 / 2658.34 770 / 770 700 / 700 Output Total 550 / 550 Balance 2108.34 / 2108.34 770 / 770 700 / 700 General: Alert, No apparent distress HEENT: Atraumatic, Normocephalic Oral: Moist Mucosa, No Gingival or Mucosal Lesions/ Ulcerations Neck: No Nodes, Thyroid Normal Size and Texture Lungs: - - bibasilar crackles Cardiovascular: Regular rate, Regular Rhythm, - - 2/6 JAVAD at RUSB Abdomen: Bowel Sounds Present, Soft, Non Tender, Non-Distended Extremities: Edema Skin: - - healing wound on LLE Psych/Mental Status: Normal Affect, Appropriate Microbiology Past 72 Hours 03/10/21 15:50 Urine, Clean Catch Urine Culture - Final Mixed Gram Positive Organisms 03/10/21 22:25 Urine, Clean Catch Legionella Antigen - Final 03/10/21 22:25 Urine, Clean Catch Streptococcus pneumoniae Antigen (M - Final 03/10/21 Unknown Mucosa - Nasopharyngeal Respiratory Panel (PCR) - Final 03/10/21 15:42 Mucosa - Nose SARS-CoV-2 Antigen (Rapid) - Final Laboratory Results 03/12/21 11:33: POC Glucose 107 03/12/21 17:10: POC Glucose 116 H 03/12/21 22:13: POC Glucose 95 03/13/21 06:15: Sodium 139, Potassium 3.4 L, Chloride 110 H, Carbon Dioxide 24.0, Anion Gap 5, BUN 39 H, Creatinine 2.76 H, Estim Creat Clear Calc 14.14, Est GFR (MDRD) Af Amer 22 L, Est GFR (MDRD) Non-Af 18 L, BUN/Creatinine Ratio 14.1, Glucose 86, Calcium 8.1 L 03/13/21 06:49: POC Glucose 80 Current Medications Acetaminophen (Acetaminophen 325 Mg Tablet) 650 mg PO Q6H PRN PRN PRN Reason: Pain Score 1-10/Temp > 100.7 F Last Admin: 03/12/21 18:25 Dose: 650 mg Documented by: Albuterol Sulfate (Albuterol 2.5 Mg/3 Ml Vial.Neb.) 2.5 mg INHALATION Q2H PRN PRN PRN Reason: Shortness of Breath/Wheezing Allopurinol (Allopurinol 300 Mg Tablet) [facility] Last Admin: 03/13/21 07:59 Dose: 300 mg Documented by: Amlodipine Besylate (Amlodipine 10 Mg Tablet) 10 mg PO DAILY [facility] Last Admin: 03/12/21 09:44 Dose: 10 mg Documented by: Aspirin (Aspirin 81 Mg Tab.Chew) 81 mg PO DAILY@0800 [facility] Last Admin: 03/13/21 07:58 Dose: 81 mg Documented by: Atorvastatin Calcium (Atorvastatin Calcium 10 Mg Tablet) 10 mg PO QHS [facility] Last Admin: 03/12/21 22:15 Dose: 10 mg Documented by: Docusate Sodium (Docusate Sodium 100 Mg Capsule) 100 mg PO BID PRN PRN PRN Reason: Constipation Ferrous Sulfate (Ferrous Sulfate 325 Mg Tablet) [facility] Last Admin: 03/13/21 07:59 Dose: 325 mg Documented by: Furosemide (Furosemide 40 Mg Tablet) 40 mg PO BID@1000,1800 [facility] Last Admin: 03/12/21 18:23 Dose: 40 mg Documented by: Heparin Sodium (Porcine) (Heparin Injection (Vial) 5,000 Unit/Ml Vial) 5,000 unit SC Q12 [facility] Last Admin: 03/12/21 22:15 Dose: 5,000 unit Documented by: Hydralazine HCl (Hydralazine 20 Mg/Ml Vial) 10 mg IV Q4H PRN PRN PRN Reason: SBP > 160 Last Admin: 03/12/21 16:02 Dose: 10 mg Documented by: Hydroxychloroquine Sulfate (Hydroxychloroquine 200 Mg Tablet) 200 mg PO QHS [facility] Last Admin: 03/12/21 22:15 Dose: 200 mg Documented by: Sodium Chloride () 250 mls @ 15 mls/hr IV .[id number] PRN PRN Reason: Saline Flush Insulin Glargine (Insulin Glargine 100 Units/Ml Pen) 8 units SC QHS [facility] Last Admin: 04/13/21 22:15 Dose: 8 u Documented by: Insulin Human Lispro (Insulin Lispro 100 Unit/Ml Insuln.Pen) 0 unit SC ACHS [facility]; Protocol Last Admin: 03/13/21 06:51 Dose: Not Given Documented by: Melatonin (Melatonin 3 Mg Tablet) 3 mg PO QHS PRN PRN PRN Reason: INSOMNIA Nutritional Formula (Lactose Free) (Glucerna Shake 120 Ml Liquid) 120 ml PO 4X/DAY [place] Last Admin: 03/12/21 22:14 Dose: 120 ml Documented by: Nystatin (Nystatin Powder 15gm Bottle) 1 applic TOPICAL BID [facility]; Protocol Last Admin: 03/12/21 22:17 Dose: 1 applic Documented by: Ondansetron HCl (Ondansetron 4 Mg/2 Ml Vial) 4 mg IV Q8H PRN PRN PRN Reason: NAUSEA/VOMITING Potassium Chloride (Potassium Chloride Oral Tablet 20 Meq) 40 meq PO X1 ONE Stop: 03/13/21 09:07 Sodium Chloride (0.9% Saline Lock 10 Ml Syringe) 10 - 40 ml IV UD PRN PRN Reason: SALINE FLUSH Last Admin: 03/12/21 16:02 Dose: 10 ml Documented by: Discharge Diet: 6 Cup Fluid Restriction, 2000 mg Sodium Diet Discharge Activity: Return to Normal Activity Home Medications: Medications to take at Discharge Allopurinol 300 mg PO DAILY 10/16/18 Aspirin [Aspirin, Baby] 81 mg PO DAILY@0800 10/16/18 Hydroxychloroquine [Plaquenil] 200 mg PO QHS 10/16/18 Insulin Glargine,Hum.rec.anlog [Lantus] 8 unit SQ QHS 10/16/18 simvastatin 40 mg tablet 20 mg PO QHS tab 09/05/19 Docusate Sodium [Colace] 100 mg PO BID PRN PRN #60 cap 07/03/20 ferrous sulfate 325 mg (65 mg iron) tablet 325 mg PO DAILY 08/15/20 Amlodipine Besylate [Norvasc] 10 mg PO DAILY 03/10/21 Acetaminophen [Tylenol Tablet] 650 mg PO Q6H PRN PRN tablet 03/13/21 Furosemide [Lasix] 40 mg PO DAILY #30 tablet 03/13/21 Potassium Chloride Oral Tablet [K-Dur] 10 meq PO DAILY #30 tab 03/13/21 Following Prescriptions Were Given to Patient: Potassium Chloride Oral Tablet [K-Dur] 10 meq PO DAILY #30 tab Transmission Status: Pending to [facility] Furosemide [Lasix] 40 mg PO DAILY #30 tablet Transmission Status: Pending to [facility] Primary Care Physician: Sonja Feliciano DISTRIBUTION ANALYST, DISTRIBUTION ANALYST-C [Primary Care Provider] - Within 2 Weeks Please Follow Up With: Gustavo Piña MD When: 03/27/2021, already scheduled Please Follow Up With: Blanca Vela DO When: 2-4 weeks Please Follow Up With: Gustavo Oliveira DO When: next scheduled appointment Patient Instructions: What Is Heart Failure?, Heart Failure: Warning Signs of a Flare-Up, Heart Failure: Tracking Your Weight, Heart Failure: Procedures That May Help, Heart Failure: Making Changes to Your Diet, Heart Failure Disposition: Home Minutes spent on discharge:: 32 Patient Condition:: Good Medical Necessity - Tobacco Use Smoking Status: Never smoker Meaningful Use Info Meaningful Use Diagnoses (Choose all that apply): None applicable Inpatient E&M: 66410 Disch Hosp
[2021-03-13] MEDS: Nystatin Powder 15gm Bottle 1 APPLIC TOPICAL (10:09)
[2021-03-13] MEDS: Heparin Injection (Vial) 5,000 UNIT/ML VIAL 5000 UNIT SC (10:09)
[2021-03-13] MEDS: Furosemide 40 MG Tablet PO (10:13)
[2021-03-13] MEDS: amLODIPine 10 MG Tablet PO (10:13)
[2021-03-13] MEDS: Glucerna Shake 120 ML LIQUID PO (10:13)
[2021-03-13] MEDS: Potassium Chloride Oral Tablet 20 MEQ 40 MEQ PO (10:13)
--- NOTE | 2021-03-13 11:18 | PCM.CONS.P ---
Problem List (1) Debility Status: Chronic (2) Chronic renal failure, stage 4 (severe) Status: Chronic (3) Acute kidney injury superimposed on chronic kidney disease Status: Chronic (4) Stasis edema with ulcer of both lower extremities Status: Acute (5) Venous insufficiency of both lower extremities Status: Acute (6) Ulcer of right lower extremity with fat layer exposed Status: Chronic (7) CHF (congestive heart failure) Status: Chronic (8) Essential hypertension Status: Chronic (9) Atherosclerotic heart disease of [place] coronary artery without angina pectoris Status: Chronic Qualifiers: (10) Morbid obesity with BMI of 45.0-49.9, adult Status: Chronic (11) Osteopenia Status: Chronic (12) Pulmonary hypertension Status: Chronic (13) Personal history of DVT (deep vein thrombosis) Status: Chronic (14) Presence of IVC filter Status: Chronic (15) Rheumatoid arthritis Status: Suspected Comment: she sees Dr. Wiggins and is on Plaquenil and Prednisone (16) Lymphedema Status: Chronic (17) Paroxysmal atrial fibrillation Status: Chronic (18) S/P angioplasty with stent Status: Chronic Comment: EDGARDO to mid LAD 12/05/2016 (19) DM2 (diabetes mellitus, type 2) Status: Chronic (20) Dyslipidemia Status: Chronic (21) Depression Status: Chronic (22) Gout Status: Chronic (23) Type 2 diabetes mellitus with other circulatory complications Status: Chronic History of Present Illness Date of Consult: 03/13/21 Reason for Consult: CKD stg IV, weakness, decreased albumin Requesting physician: [] Primary care physician: CRISTIAN Wiley - History of Present Illness The patient is a 75 year old F with extensive PMH as below, presented to the ED on 03/10/2021 with complaints of a 1 day history of chills, body aches, cough, with sputum production. Patient has received her Covid vaccination. Noted to have PAF but not anticoagulated. In the ER, she was given IV fluids for DILCIA, UA showed pyuria, given IV antibiotics for possible cellulitis of bilateral lower extremities and for possible UTI. Also required IV labetalol for significant hypertension. She was admitted for further evaluation and management. CT the chest without contrast was done secondary to questionable chest x-ray: diffuse enlargement of thyroid with prominence of isthmus, focal calcification along the inferior aspect of the left lobe of the thyroid, bibasilar atelectasis and/or early infiltrates, small bilateral pleural effusion slightly worse on the right, coronary artery calcifications and cardiomegaly, and multiple small lymph nodes within the mediastinum, which were normal in size and morphology most compatible rehab with reactive lymph hyperplasia. Findings suggestive of pulmonary hypertension. There were multilevel degenerative changes of the thoracic spine. Also a 3.6 cm x 5.3 cm cyst in the upper pole of the right kidney. Patient was hypoxic in the upper 80s, recovered on 2 L per nasal cannula. Sepsis was ruled out as well as UTI. Suspected to have CHF exacerbation that contributed to acute hypoxic respiratory insufficiency. Her rapid Covid and respiratory panels were negative. Patient was started on p.o. furosemide. She is to follow-up with nephrology as an outpatient, sees Dr. Vela. Also follows with Dr. Scherer, associate broker. Plan is to discharge home today. She does have some chronic wounds to the lower extremities, pictures were taken by wound nurse during this hospitalization. Patient lives in a two-story home with her daughter and grandson. It is a walk-in basement with around 10 steps to get into the main level. She reports she is independent with all ADLs at home. She still drives and transports herself to appointments. DME includes cane, walker, and shower chair at home. She has a living will and power of environmental field office manager, which is her daughter More Stapleton. Her contact information is [phone]. Patient reports she is not really having any pain or shortness of breath. She does have dyspnea on exertion and is going to require home oxygen for this. She is waiting for the [employer] company to bring it so she can be discharged home. Plans to follow-up closely with her food checkers and cashiers supervisor. States she has some Ensure drinks at home but does not always drink them. Acknowledges her albumin level has been decreased for some time. States she lives at home with her daughter and now her grandson again, however they work full-time so are unable to help much during the day. However, she reports she is independent for the most part. She uses [facility] for pharmacy. Patient Problems: Chronic Problems (Last Reviewed 03/10/21 @ 17:44 by Taylor Catherine, SAMANTA-C) Acute kidney injury superimposed on chronic kidney disease (Chronic) Wound of right lower extremity (Chronic) Traumatic, penetrating with fat layer exposed. Ulcer of right lower extremity with fat layer exposed (Chronic) CHF (congestive heart failure) (Chronic) Essential hypertension (Chronic) Debility (Chronic) Premature atrial contractions (Chronic) Premature ventricular contraction (Chronic) Atherosclerotic heart disease of [place] coronary artery without angina pectoris (Chronic) Varicose veins of both lower extremities (Chronic) Chronic renal failure, stage 4 (severe) (Chronic) Chronic steroid use (Chronic) Morbid obesity with BMI of 45.0-49.9, adult (Chronic) Osteopenia (Chronic) Pulmonary hypertension (Chronic) Personal history of DVT (deep vein thrombosis) (Chronic) Presence of IVC filter (Chronic) Ulcer of left lower extremity with fat layer exposed (Chronic) mixed venous arterial left posterior calf Lymphedema (Chronic) PVD (peripheral vascular disease) (Chronic) Paroxysmal atrial fibrillation (Chronic) S/P angioplasty with stent (Chronic ~12/05/16) EDGARDO to mid LAD 12/05/2016 DM2 (diabetes mellitus, type 2) (Chronic) Dyslipidemia (Chronic) Depression (Chronic) Gout (Chronic) 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) Surgical History: angioplasty, hysterectomy, rotator cuff repair Psychiatric History: Depression Home Medications: Ambulatory Orders Medication Instructions Recorded Allopurinol 300 mg PO DAILY 10/16/18 Aspirin [Aspirin, Baby] 81 mg PO DAILY@0800 10/16/18 Hydroxychloroquine [Plaquenil] 200 mg PO QHS 10/16/18 Insulin Glargine,Hum.rec.anlog 8 unit SQ QHS 10/16/18 [Lantus] simvastatin 40 mg tablet 20 mg PO QHS tab 09/05/19 Docusate Sodium [Colace] 100 mg PO BID PRN PRN #60 cap 07/03/20 ferrous sulfate 325 mg (65 mg 325 mg PO DAILY 08/15/20 iron) tablet Amlodipine Besylate [Norvasc] 10 mg PO DAILY 03/10/21 Acetaminophen [Tylenol Tablet] 650 mg PO Q6H PRN PRN tablet 03/13/21 Furosemide [Lasix] 40 mg PO DAILY #30 tablet 03/13/21 Potassium Chloride Oral Tablet 10 meq PO DAILY #30 tab 03/13/21 [K-Dur] Allergies cefepime HCl [From Maxipime] Allergy (Verified 03/10/21 15:32) Itching cephalexin monohydrate [From Keflex] Allergy (Verified 03/10/21 15:32) Hives clopidogrel [From Plavix] Allergy (Verified 03/10/21 15:32) Itching and hives all over piperacillin [From Zosyn] Allergy (Verified 03/10/21 15:32) Hives tazobactam [From Zosyn] Allergy (Verified 03/10/21 15:32) Hives ciprofloxacin [From Cipro] Adverse Reaction (Verified 03/10/21 15:32) Itching hydromorphone HCl [From Dilaudid] Adverse Reaction (Verified 03/10/21 15:32) Itching Paternal Family History: Family History (Last Reviewed 03/13/21 @ 11:51 by CRISTIAN Mccoy) Father Hypertension Brother CAD (coronary artery disease) History Items: Diabetes Maternal Family History: Family History (Last Reviewed 03/13/21 @ 11:51 by CRISTIAN Mccoy) Father Hypertension Brother CAD (coronary artery disease) History Items: Diabetes, Hypertension - Social History Smoking Status: Never smoker Alcohol: None Drugs: None Code Status: Full Code Review of Systems Constitutional: Reports: Weakness, Fatigue. Denies: Chills, Fever, Weight Change Eyes: Denies: Vision Change HEENT: Denies: Difficulty Swallowing, Head Aches, Sinus Congestion, Sinus Drainage, Sore Throat Cardiovascular: Reports: Edema. Denies: Chest Pain, Orthopnea, Palpitations Respiratory: Reports: Shortness of breath upon exertion. Denies: Cough, Hemoptysis, Shortness of breath at rest, Sputum production, Wheezing Gastrointestinal: Denies: Abdominal Pain, Constipation, Diarrhea, Nausea, Vomiting Genitourinary: Denies: Dysuria Musculoskeletal: Denies: Joint Pain, Joint Tenderness Skin: Denies: Rash, Wounds Neurological: Reports: Numbness, Tingling. Denies: Change in Speech, Focal weakness, Seizures Psychiatric: Reports: Depression. Denies: Anxiety, Homicidal Ideations, Suicidal Ideations Hematologic/ Lymphatic: Reports: Anemia, Easy Bruising, Hx of blood clot Physical Exam Subjective: Sitting up in recliner with legs elevated, eating her lunch. Denies any current complaints. States she is waiting to be discharged home. General: Alert, Oriented x3, Cooperative, No apparent distress HEENT: Atraumatic, Normocephalic Oral: Moist Mucosa Neck: Supple, Trachea Midline Lungs: No wheeze, Diminished, Rhonchi Cardiovascular: Normal S1, Normal S2, Irregular Rate Abdomen: Bowel Sounds Present, Soft, Non Tender, Obese Extremities: Diminished Peripheral Pulses, Edema Skin: Ulcer/ Wound Musculoskeletal: Tenderness Neurological: Cranial nerves II-XII grossly intact Psych/Mental Status: Normal Affect, Appropriate Objective: Vital Signs Temp Pulse Resp BP Pulse Ox 97.8 F 94 16 151/78 H 94 03/13/21 08:15 03/13/21 08:15 03/13/21 08:15 03/13/21 08:15 03/13/21 10:15 Oxygen Flow Rate (L/min) 2 Oxygen Delivery Method Room Air Weight: 82.7 kg Body Mass Index (BMI) 32.7 Finger Stick Blood Glucose 113 Intake and Output for Last 24 Hours 03/11/21 03/12/21 03/13/21 23:59 23:59 23:59 Intake Total 2658.34 / 2658.34 770 / 770 700 / 700 Output Total 550 / 550 Balance 2108.34 / 2108.34 770 / 770 700 / 700 Microbiology Past 72 Hours 03/10/21 15:45 Blood Culture - Preliminary Blood Culture (Wb) - Right Wrist No growth in 48 hours. 03/10/21 15:40 Blood Culture - Preliminary Blood Culture (Wb) - Anticubital Left No growth in 48 hours. 03/10/21 15:50 Urine Culture - Final Urine, Clean Catch Mixed Gram Positive Organisms 03/10/21 22:25 Legionella Antigen - Final Urine, Clean Catch Streptococcus pneumoniae Antigen (M - Final 03/10/21 Unknown Respiratory Panel (PCR) - Final Mucosa - Nasopharyngeal 03/10/21 15:42 SARS-CoV-2 Antigen (Rapid) - Final Mucosa - Nose Laboratory Tests Past 24 Hrs 03/13/21 06:15 Sodium 139 Potassium 3.4 L Chloride 110 H Carbon Dioxide 24.0 Anion Gap 5 BUN 39 H Creatinine 2.76 H Estim Creat Clear Calc 14.14 Est GFR (MDRD) Af Amer 22 L Est GFR (MDRD) Non-Af 18 L BUN/Creatinine Ratio 14.1 Glucose 86 Calcium 8.1 L Assessment/Plan All Active Problems (Last Reviewed 03/10/21 @ 17:44 by Taylor Knoble, FILLING HAND-C) UTI (urinary tract infection) (Acute) Cellulitis, leg (Acute) Sepsis syndrome (Acute) Sepsis (Acute) Stasis edema with ulcer of both lower extremities (Acute) Venous insufficiency of both lower extremities (Acute) Elevated d-dimer (Acute) Acute cystitis (Acute) DILCIA (acute kidney injury) (Resolved) Afib (Resolved) Chronic ulcer of left leg with fat layer exposed (Resolved) DVT (deep venous thrombosis) (Resolved) Nonhealing ulcer of left lower extremity with fat layer exposed (Resolved) Pulmonary emboli (Resolved) Severe sepsis (Resolved) UTI (urinary tract infection) (Resolved) Venous stasis ulcer of leg without varicose veins (Resolved) Wound abscess (Resolved) Chronic articular rheumatism (Ruled-out) Chronic foot ulcer (Ruled-out) Pyoderma gangrenosum (Ruled-out) 75-year-old female with stage IV kidney disease and decreased albumin 2.1, seen today for initial palliative care consultation for weakness and debility, as well as her renal disease and low albumin. 1. Weakness/debility: She is mainly independent at home, needs minimal assist from her family members. She does have some nutritional deficits and is trying to drink Ensure daily but admits often does not do. She had PT/OT while in the hospital, there were no recommendations to continue when she is discharged. 2. Stage IV CKD: Follows closely with nephrology. She was recently started on Lasix and had some issues prior with dehydration. She will need to be monitored closely. 3. Lower extremity wounds: Followed by wound nurse here, was getting Adaptic to open areas, Eder wraps for edema. Not following as an outpatient at the wound center. Patient reports wounds healed, then open back up constantly. She monitors for infection. Our nurse can follow-up with her next week. 4. PVD/stasis edema/CHF/HTN/CAD/obesity/pulmonary hypertension/history of DVT/RA/PAF/T2DM/HLD/depression/gout: Complicates overall care, management, recovery, and prognosis. She will follow up with her primary care and specialists. She does see Dr. Wiggins for RA and is on Plaquenil. Thank you for the opportunity to participate in this patient's care, please do not hesitate to contact [facility] with any further questions or concerns. Palliative direct line is [phone]. We will have RN follow up next week at the patient's request, will discuss palliative services further at that time. Goal is for prevention of rehospitalization and increase quality of life. Greater than 50% of F2F visit dedicated to education and counseling of palliative care services, medications, comorbid conditions and potential assistance with management, and plan of care moving forward. Start time: 1118 End time: 1201
[2021-03-13 11:40] LABS: Bedside Glucose 122 mg/dL (70-110)
--- NOTE | 2021-03-13 12:00 | PHA.DC.MC ---
Pharmacy Service has performed discharge medication reconciliation and counseling for this patient. 1. FUROSEMIDE 40MG PO DAILY 2. POTASSIUM CHLORIDE 10MEQ PO DAILY The patient's discharge medication list was reviewed for discrepancies and discrepancies were resolved. Home Medications Allopurinol 300 mg PO DAILY 10/16/18 Aspirin [Aspirin, Baby] 81 mg PO DAILY@0800 10/16/18 Hydroxychloroquine [Plaquenil] 200 mg PO QHS 10/16/18 Insulin Glargine,Hum.rec.anlog [Lantus] 8 unit SQ QHS 10/16/18 simvastatin 40 mg tablet 20 mg PO QHS tab 09/05/19 Docusate Sodium [Colace] 100 mg PO BID PRN PRN #60 cap 07/03/20 ferrous sulfate 325 mg (65 mg iron) tablet 325 mg PO DAILY 08/15/20 Amlodipine Besylate [Norvasc] 10 mg PO DAILY 03/10/21 Acetaminophen [Tylenol Tablet] 650 mg PO Q6H PRN PRN tablet 03/13/21 Furosemide [Lasix] 40 mg PO DAILY #30 tablet 03/13/21 Potassium Chloride Oral Tablet [K-Dur] 10 meq PO DAILY #30 tab 03/13/21 The patient was counseled on the following discharge medications and changes in medications for homegoing were reviewed. The Reason for Use, instructions for use, and potential side effects were reviewed for all new medications. The patient's questions regarding all of their medications were answered. The patient was able to verbally demonstrate an understanding of their discharge medications.
--- NOTE | 2021-03-14 14:58 | CASEMGMT ---
MAL BEY Discharge Follow Up Phone Call: IWONAE: Vidal Strata: 3 Call Date: 03.14.21 Discharge Date: 03.13.21 Time of Call:1452 Duration: 2 min Admitting Dx: UTI MAL BEY completed follow up phone call after recent hospitalization. Pt reports doing well since dc. States she has picked up her rx without difficulty. States she has made her follow up appt with Sonja Feliciano NP for tomorrow. Pt has no further questions or concerns at this time.
== END 2021-03-13 16:10 | disposition home or self-care (01) | DRG 291 ==
LOC: ED 16:50 → MS3 18:08
PROVIDERS: Nurse Practitioner Family; Admitting Provider Family Medicine; Emergency Provider Emergency Medicine; PCP Nurse Practitioner
DX: I13.0 Hypertensive heart and chronic kidney disease with heart failure and stage 1 through stage 4 chronic kidney disease, or unspecified chronic kidney disease (principal); I50.33 Acute on chronic diastolic (congestive) heart failure; R65.10 Systemic inflammatory response syndrome (SIRS) of non-infectious origin without acute organ dysfunction; Z68.42 Body mass index [BMI] 45.0-49.9, adult; L97.812 Non-pressure chronic ulcer of other part of right lower leg with fat layer exposed; L97.222 Non-pressure chronic ulcer of left calf with fat layer exposed; N18.4 Chronic kidney disease, stage 4 (severe); R82.71 Bacteriuria; R09.02 Hypoxemia; R06.89 Other abnormalities of breathing; E11.22 Type 2 diabetes mellitus with diabetic chronic kidney disease; D50.9 Iron deficiency anemia, unspecified; R32 Unspecified urinary incontinence; I48.0 Paroxysmal atrial fibrillation; I27.20 Pulmonary hypertension, unspecified; E11.51 Type 2 diabetes mellitus with diabetic peripheral angiopathy without gangrene; I83.018 Varicose veins of right lower extremity with ulcer other part of lower leg; I83.028 Varicose veins of left lower extremity with ulcer other part of lower leg; I87.2 Venous insufficiency (chronic) (peripheral); I89.0 Lymphedema, not elsewhere classified; I25.10 Atherosclerotic heart disease of native coronary artery without angina pectoris; Z20.822 Contact with and (suspected) exposure to COVID-19; M06.9 Rheumatoid arthritis, unspecified; E78.5 Hyperlipidemia, unspecified; M1A.9XX0 Chronic gout, unspecified, without tophus (tophi); E66.01 Morbid (severe) obesity due to excess calories; F32.9 Major depressive disorder, single episode, unspecified; F41.9 Anxiety disorder, unspecified; Z79.4 Long term (current) use of insulin; Z79.82 Long term (current) use of aspirin; Z79.899 Other long term (current) drug therapy; Z86.711 Personal history of pulmonary embolism; Z86.718 Personal history of other venous thrombosis and embolism; Z95.5 Presence of coronary angioplasty implant and graft; Z95.828 Presence of other vascular implants and grafts
CPT/HCPCS: 36415; 71045; 71250; 80048; 80053; 81001; 82962; 83605; 83735; 84145; 84484; 85025; 85610; 85730; 87040; 87086; 87088; 87426; 87449; 87633; 93005; 97110; 97162; 97166; 97530; 97535; 99251; 99285; J2185; J7030; J7050; A4216; G0463; J1940

== ENCOUNTER → 2021-04-03 16:19 | Outpatient (CLI) | payer MEDICARE, SELFPAY ==
[2016-12-05 15:47] VITALS: BMI 35.6
[2021-03-27 13:49] VITALS: BMI 32.5
[2021-04-03 18:05] LABS: ALB/GLOB Ratio 0.7 RATIO (0.9-2.4); AST(SGOT) 19 U/L (15-37); Alanine Aminotransfer ALT/SGPT 12 U/L (13-56); Albumin, Serum 2.8 g/dL (3.2-5.0); Alkaline Phosphatase 153 U/L (45-117); Anion Gap 8 (5-15); BUN 48 mg/dL (7-18); BUN/Creat Ratio 17.1 RATIO (10-20); Calcium,Total 8.3 mg/dL (8.5-10.1); Chloride 107 mmol/L (98-107); Creatinine, Serum 2.81 mg/dL (0.55-1.02); EST Glomerular Filtration Rate 17 mL/min (>60); Est Glom Filt Rate - Afr Amer 21 mL/min (>60); Globulin 4.3 g/dL (2.2-4.2); Glucose 167 mg/dL (74-106); Potassium 3.7 mmol/L (3.5-5.1); Protein, Total 7.1 g/dL (6.4-8.2); Sodium Level 138 mmol/L (136-145); Uric Acid 4.3 mg/dL (2.6-6.0)
== END ==
PROVIDERS: PCP Nurse Practitioner; Referring Provider Internal Medicine Rheumatology; Visit Provider Internal Medicine Rheumatology
DX: M06.00 Rheumatoid arthritis without rheumatoid factor, unspecified site (principal); M10.00 Idiopathic gout, unspecified site; M17.0 Bilateral primary osteoarthritis of knee; M21.40 Flat foot [pes planus] (acquired), unspecified foot; I10 Essential (primary) hypertension; E78.5 Hyperlipidemia, unspecified; I26.99 Other pulmonary embolism without acute cor pulmonale; Z79.899 Other long term (current) drug therapy; Z86.718 Personal history of other venous thrombosis and embolism
CPT/HCPCS: 36415; 80053; 84550

== ENCOUNTER → 2021-04-10 12:12 | Outpatient (CLI) | payer MEDICARE, SELFPAY ==
[2016-12-05 15:47] VITALS: BMI 35.6
[2021-03-27 13:49] VITALS: BMI 32.5
[2021-04-12 16:08] LABS: Endomysial Antibody IgA Negative (Negative)
[2021-04-12 19:42] LABS: Immunoglobulin A 391 mg/dL (64-422); t-Transglutaminase IgA <2 U/mL (0-3)
== END ==
PROVIDERS: PCP Nurse Practitioner; Referring Provider Internal Medicine Gastroenterology; Visit Provider Internal Medicine Gastroenterology
DX: D50.9 Iron deficiency anemia, unspecified (principal)
CPT/HCPCS: 36415; 82784; 83516; 86255

== ENCOUNTER → 2021-04-22 14:43 | Outpatient (CLI) | payer MEDICARE, SELFPAY ==
[2016-12-05 15:47] VITALS: BMI 35.6
[2021-03-27 13:49] VITALS: BMI 32.5
--- NOTE | 2021-04-22 14:45 | ECHOD_ITS ---
Reason For Study: Murmur Procedure This was a 2D Doppler, Color Flow transthoracic echocardiogram. The exam was of adequate technical quality. Exam performed in department. Left Ventricle Normal LV size. Mild concentric left ventricular hypertrophy. Left ventricular systolic function is normal. The estimated ejection fraction is 55 %. Unable to assess diastolic dysfunction. No regional wall motion abnormalities noted. Right Ventricle Normal RV size. Normal systolic function. Atria The left atrium is moderately enlarged. Normal right atrium. No doppler evidence for ASD. Mitral Valve There is mild mitral annular calcification. Extension of the mitral annular calcification on the base of the posterior mitral valve leaflet. Mild (1+) mitral valve insufficiency. Tricuspid Valve Normal tricuspid valve. Mild to moderate (1-2+) tricuspid valve insufficiency. Right ventricular systolic pressure estimated to be 44 mmHg. Aortic Valve Trisinus/trileaflet aortic valve. Mild focal aortic valve calcification. Aortic valve sclerosis/mild aortic valve stenosis. Trivial aortic valve insufficiency. Pulmonic Valve The pulmonic valve is not well visualized. Trivial pulmonic valve insufficiency. Great Vessels Normal sized aortic root. Pericardium/Pleural No pericardial effusion. MMode/2D Measurements & Calculations LVIDd: 5.5 cm IVSd: 1.3 cm LVOT diam: 2.1 cm LVIDs: 4.3 cm LVPWd: 1.3 cm LVOT area: 3.4 cm2 RVDd: 4.3 cm FS: 22.2 % Ao root diam: 3.4 cm LAV(MOD-bp): 90.2 ml LVAd ap4: 30.3 cm2 LAV(MOD-bp) Indexed: 50.2 ml/m2 LVLd ap4: 7.6 cm LAV(MOD-sp2): 83.8 ml EDV(MOD-sp4): 96.3 ml LAV(MOD-sp4): 87.5 ml EDV(sp4-el): 102.2 ml LVAs ap4: 18.9 cm2 LVLs ap4: 6.4 cm ESV(MOD-sp4): 46.4 ml ESV(sp4-el): 47.2 ml EF(MOD-sp4): 51.8 % EF(sp4-el): 53.8 % SV(MOD-sp4): 49.9 ml SV(sp4-el): 55.0 ml LA A4 area: 26.1 cm2 LA dimension(2D): 4.7 cm RA A4 area: 18.2 cm2 Time Measurements MV dec time: 0.24 sec Doppler Measurements & Calculations MV E max joanna: 142.9 cm/sec MV V2 max: 157.1 cm/sec MV P1/2t max joanna: 147.7 cm/sec MV max P.9 mmHg MV P1/2t: 71.7 msec MV V2 mean: 74.5 cm/sec MV dec slope: 603.2 cm/sec2 MV mean P.9 mmHg MVA(P1/2t): 3.1 cm2 MV V2 VTI: 35.2 cm MVA(VTI): 2.7 cm2 Ao V2 max: 224.5 cm/sec AI max joanna: 324.9 cm/sec LV V1 max: 132.8 cm/sec Ao max P.2 mmHg AI max P.2 mmHg LV V1 max P.1 mmHg Ao V2 mean: 162.5 cm/sec AI dec slope: 174.4 cm/sec2 LV V1 mean P.2 mmHg Ao mean P.7 mmHg AI P1/2t: 545.5 msec LV V1 mean: 97.4 cm/sec Ao V2 VTI: 47.7 cm LV V1 VTI: 28.3 cm BONI(I,D): 2.0 cm2 BONI(V,D): 2.0 cm2 SV(LVOT): 95.2 ml PA V2 max: 148.8 cm/sec PI end-d joanna: 115.4 cm/sec TR max joanna: 318.4 cm/sec TR max P.5 mmHg ECHO/Echo Complete Interpretation Summary Left ventricular systolic function is normal. The estimated ejection fraction is 55 %. Mild concentric left ventricular hypertrophy. The left atrium is moderately enlarged. There is mild mitral annular calcification. Extension of the mitral annular calcification on the base of the posterior mitr al valve leaflet. Mild (1+) mitral valve insufficiency. Mild to moderate (1-2+) tricuspid valve insufficiency. Aortic valve sclerosis/mild aortic valve stenosis Trivial aortic valve insufficiency. Trivial pulmonic valve insufficiency. Right ventricular systolic pressure estimated to be 44 mmHg. Unable to assess diastolic dysfunction. Ordering Physician: Gustavo Piña Referring Physician: Sonja Feliciano Performed By: Crissy Bernal, SUSAN, RVT
== END ==
PROVIDERS: PCP Nurse Practitioner; Referring Provider Internal Medicine Cardiovascular Disease; Visit Provider Internal Medicine Cardiovascular Disease
DX: I48.0 Paroxysmal atrial fibrillation (principal); R01.1 Cardiac murmur, unspecified
CPT/HCPCS: 93306

== ENCOUNTER → 2021-05-13 16:17 | Outpatient (CLI) | payer MEDICARE, SELFPAY ==
[2016-12-05 15:47] VITALS: BMI 35.6
[2021-03-27 13:49] VITALS: BMI 32.5
[2021-05-13 18:10] LABS: Albumin, Serum 2.1 g/dL (3.2-5.0); BUN 37 mg/dL (7-18); BUN/Creat Ratio 12.5 RATIO (10-20); Calcium,Total 8.4 mg/dL (8.5-10.1); Chloride 101 mmol/L (98-107); Creatinine, Serum 2.95 mg/dL (0.55-1.02); EST Glomerular Filtration Rate 17 mL/min (>60); Est Glom Filt Rate - Afr Amer 20 mL/min (>60); Glucose 89 mg/dL (74-106); Phosphorus 4.5 mg/dL (2.5-4.9); Potassium 4.1 mmol/L (3.5-5.1); Sodium Level 135 mmol/L (136-145)
[2021-05-13 18:17] LABS: Vitamin D,25 Hydroxy 54.4 ng/mL
[2021-05-14 07:58] LABS: PTHIN 489.4 pg/mL (18.4-80.1)
== END ==
PROVIDERS: PCP Nurse Practitioner; Referring Provider Internal Medicine Nephrology; Visit Provider Internal Medicine Nephrology
DX: E11.22 Type 2 diabetes mellitus with diabetic chronic kidney disease (principal); N18.4 Chronic kidney disease, stage 4 (severe); E55.9 Vitamin D deficiency, unspecified; N25.81 Secondary hyperparathyroidism of renal origin
CPT/HCPCS: 36415; 80069; 82306; 83970

== ENCOUNTER → 2021-07-15 15:19 | Outpatient (CLI) | payer MEDICARE, SELFPAY ==
[2016-12-05 15:47] VITALS: BMI 35.6
[2021-03-27 13:49] VITALS: BMI 32.5
[2021-06-26 15:03] VITALS: BMI 29.8
[2021-07-15 18:13] LABS: Albumin, Serum 2.3 g/dL (3.2-5.0); BUN 52 mg/dL (7-18); Calcium,Total 8.5 mg/dL (8.5-10.1); Chloride 111 mmol/L (98-107); Creatinine, Serum 3.05 mg/dL (0.55-1.02); EST Glomerular Filtration Rate 16 mL/min (>60); Est Glom Filt Rate - Afr Amer 19 mL/min (>60); Glucose 113 mg/dL (74-106); Phosphorus 5.3 mg/dL (2.5-4.9); Potassium 4.4 mmol/L (3.5-5.1); Sodium Level 139 mmol/L (136-145)
[2021-07-15 18:44] LABS: Protein, Urine (Random) 483.4 mg/dL (<11.9); Protein:Creat Ratio 11190 mg/g CRE (0-200)
[2021-07-16 08:24] LABS: PTHIN 291.7 pg/mL (18.4-80.1)
== END ==
PROVIDERS: PCP Nurse Practitioner; Referring Provider Internal Medicine Nephrology; Visit Provider Internal Medicine Nephrology
DX: N18.4 Chronic kidney disease, stage 4 (severe) (principal); E11.22 Type 2 diabetes mellitus with diabetic chronic kidney disease; N25.81 Secondary hyperparathyroidism of renal origin
CPT/HCPCS: 36415; 80069; 82570; 83970; 84156

== ENCOUNTER 2021-07-24 05:50 | Day surgery (SDC) | payer MEDICARE, SELFPAY ==
[2016-12-05 15:47] VITALS: BMI 35.6
[2021-06-26 15:03] VITALS: BMI 29.8
--- NOTE | 2021-07-18 14:14 | EKG12_ITS ---
Test Reason : PREOP Blood Pressure : / mmHG Vent. Rate : 093 BPM Atrial Rate : 093 BPM P-R Int : 172 ms QRS Dur : 090 ms QT Int : 376 ms P-R-T Axes : 064 -08 086 degrees QTc Int : 467 ms Normal sinus rhythm with sinus arrhythmia Voltage criteria for left ventricular hypertrophy Abnormal ECG Confirmed by CHRIS MORELAND, ROBBY ([id number]), editorial cartoonist JO ANN KABA ([id number]) on 07/22/2021 8:30:55 AM Referred By: Dennis Santos Confirmed By:ROBBY PEREZ MD
[2021-07-18 15:19] LABS: Hematocrit 33.8 % (37-47); Hemoglobin 10.1 g/dL (12.0-15.0); Mean Corp Hgb Conc 29.9 g/dL (32-36); Mean Corpuscular Hgb 31.4 pg (27.0-32.0); Mean Platelet Vol. 10.1 fl (6.2-12.0); Platelet Count 292 K/mm3 (150-450); RBC Distribution Width CV 16.6 % (11.6-14.6); RBC Distribution Width SD 64.8 fl (35.1-43.9); Red Blood Count 3.22 M/mm3 (4.2-5.4); White Blood Count 10.1 K/mm3 (4.4-11.0)
[2021-07-18 16:00] LABS: Anion Gap 7 (5-15); BUN 46 mg/dL (7-18); BUN/Creat Ratio 15.8 RATIO (10-20); Calcium,Total 8.8 mg/dL (8.5-10.1); Chloride 110 mmol/L (98-107); Creatinine, Serum 2.92 mg/dL (0.55-1.02); EST Glomerular Filtration Rate 17 mL/min (>60); Est Glom Filt Rate - Afr Amer 20 mL/min (>60); Glucose 79 mg/dL (74-106); Potassium 5.7 mmol/L (3.5-5.1); Sodium Level 136 mmol/L (136-145)
[2021-07-24] VITALS (9 sets, daily range): BP systolic 95–142; BP diastolic 53–73; PULSE 71–81; RESP 16–18; TEMP 36.2–36.8; O2SAT 95–98; BMI 28.5
--- NOTE | 2021-07-24 06:20 | HP.PCM_ITS ---
History and Physical Date of Admission: 07/24/21 Intake Visit Reasons: VM 01/2021, FISTULA Chief Complaint: fistula creation Bulk Loader Required: No Is patient in pain?: No Allergies cefepime HCl [From Maxipime] Allergy (Verified 06/26/21 15:03) Itching cephalexin monohydrate [From Keflex] Allergy (Verified 06/26/21 15:03) Hives clopidogrel [From Plavix] Allergy (Verified 06/26/21 15:03) Itching and hives all over piperacillin [From Zosyn] Allergy (Verified 06/26/21 15:03) Hives tazobactam [From Zosyn] Allergy (Verified 06/26/21 15:03) Hives ciprofloxacin [From Cipro] Adverse Reaction (Verified 06/26/21 15:03) Itching hydromorphone HCl [From Dilaudid] Adverse Reaction (Verified 06/26/21 15:03) Itching Medications allopurinol 300 mg PO DAILY 10/16/18 [History Confirmed 06/26/21] aspirin 81 mg PO DAILY@0800 10/16/18 [History Confirmed 06/26/21] hydroxychloroquine 200 mg PO QHS 10/16/18 [History Confirmed 06/26/21] insulin glargine 8 unit SQ QHS 10/16/18 [History Confirmed 06/26/21] ferrous sulfate 325 mg (65 mg iron) tablet 325 mg PO DAILY 08/15/20 [History Confirmed 06/26/21] acetaminophen 650 mg PO Q6H PRN PRN tablet 03/13/21 [Rx Confirmed 06/26/21] simvastatin 20 mg tablet 20 mg PO QHS 03/27/21 [History Confirmed 06/26/21] calcitriol 0.25 mcg capsule 0.25 mcg PO DAILY 06/17/21 [History Confirmed 06/26/21] furosemide 40 mg tablet 20 mg PO .qod tab 06/17/21 [History Confirmed 06/26/21] hydralazine 25 mg tablet 25 mg PO TID #270 tab 06/17/21 [Rx Confirmed 06/26/21] Is last menstrual period known: No Post menopausal: Yes Patient : No PFSH Medical History Atherosclerotic heart disease of [place] coronary artery without angina pectoris Benign essential HTN Cellulitis CHF (congestive heart failure) Chronic renal failure, stage 4 (severe) Chronic steroid use Debility Depression DM2 (diabetes mellitus, type 2) Dyslipidemia Elevated d-dimer Essential hypertension Gastroenteritis Gout HTN (hypertension) Lymphedema Morbid obesity with BMI of 45.0-49.9, adult Osteopenia Paroxysmal atrial fibrillation Personal history of DVT (deep vein thrombosis) Premature atrial contractions Premature ventricular contraction Presence of IVC filter Pulmonary hypertension Pulmonary hypertension PVD (peripheral vascular disease) Rheumatoid arthritis Sepsis Type 2 diabetes mellitus with other circulatory complications Ulcer of left lower extremity with fat layer exposed Ulcer of right lower extremity with fat layer exposed UTI (urinary tract infection) Varicose veins of both lower extremities Venous insufficiency of both lower extremities Wound of right lower extremity Surgical History (Updated 06/26/21 @ 15:03 by Catia Todd) History of bladder surgery History of colonoscopy (~04/2021) History of repair of rotator cuff History of total hysterectomy Hx of appendectomy S/P angioplasty with stent (~12/05/16) Family History Father Hypertension Brother CAD (coronary artery disease) CABG x 3 in 2016 Social History Smoking Status: Never smoker alcohol intake: never substance use type: does not use caffeine: Yes Type: carbonated beverages what type of physical activity do you participate in: none seatbelt use: always do you feel safe at home: Yes HPI HPI HPI: DEVORAH ALLAN, is a 75 F who presents to the office today for surgical consultation regarding a arteriovenous hemodialysis fistula creation. The patient is referred by Dr. Blanca Vela and a written copy of my surgical consult and recommendations will return to her By cardiology history she has had evidence of a LAD stenting in 2017. She has trouble with PVCs and paroxysmal atrial fibrillation and pulmonary hypertension and hypertension hyperlipidemia and history of DVT with pulmonary embolus with IVC filter. She has problems with chronic anemia diabetes and chronic renal sufficiency. On February 20, 2021 the patient had bilateral upper extremity vein mapping. This demonstrates that the cephalic vein was patent and compressible bilaterally. Bilateral basilic veins appear unremarkable. There appear to be appropriate diameter and flow in the radial and brachial arteries. The patient has delayed and delayed seeking surgical consultation. Dr. Blanca Vela has been encouraging that the patient consider creation of an AV fistula. The patient is mostly right arm dominant. She does write with her left hand. She has had chronic discoloration of both forearms now for an extended period of time. She states that this is not bruising. She is on a low-dose aspirin therapy because she has had previous coronary stent placed. She follows with Dr. Gustavo Piña and she states that at a recent appointment she was felt to be stable. She states that if required she would accept hemodialysis ROS General General: No weight change, appetite, fatigue, colon cancer, breast cancer or weakness HEENT HEENT: No difficulty swallowing, eye injury, eye surgery, swollen glands or hoarseness Endo Endocrine: Yes diabetes mellitus; No thyroid disease, thyroid cancer, Hair loss, heat intolerance or cold intolerance Musc Musculoskeletal: Yes arthritis and rheumatoid arthritis; No back problems, gout or joint pain Cardio Cardiovascular: Yes murmur, high blood pressure and heart stent; No pacemaker, heart disease, atrial fibrillation, heart attack, palpitations, shortness of breat with exertion or chest pain Psych Psychiatric: No depression, anxiety or hearing voices Resp Respiratory: No shortness of breath, No sleep apnea, No cough, No COPD, No asthma, No emphysema and No wheezing Gastro Gastrointestinal: No abdominal pain, No nausea or vomiting, No diarrhea, No constipation, No blood in stool, No acid reflux, No hemorrhoids, No ulcers, No gallbladder problem and No black,tarry stools Ish Hematologic: No blood thinners, No blood disorders, No bleeding, Yes anemia and No blood clots Neuro Neurologic: No weakness Exam Const General: cooperative, comfortable and no acute distress Orientation: alert Other: Patient has a walker. She appears older than stated age. [facility] Head: normal to inspection Chest Other: Kyphosis noted Resp Effort & Inspection: normal respiratory effort Auscultation: clear to auscultation bilaterally Cardio Rate: regular rate Rhythm: regular rhythm Other: 2/6 systolic ejection murmur GI Inspection: normal to inspection Auscultation: normal bowel sounds Skin Other: Darkish discoloration bilateral forearms and dorsal hand Extrem Other: Left radial pulse 3+. Ultrasound inspection demonstrates a patent and compressible cephalic vein however within the mid and proximal forearm it becomes notably deeper. Psych Appearance: grossly normal COVID (Procedure Consent) Procedure Criteria Procedure Criteria: Yes Elective The surgeon/proceduralist and patient have discussed in detail the risk of exposure to and/or potential harm posed by the COVID-19 virus with having a surgery/procedure at this time versus the risk of delaying the surgery/procedure. It is not possible to know either the risk of delaying the surgery or procedure or chance of getting an infection with perfect accuracy, but a joint decision was made between the patient and the surgeon/proceduralist to proceed at this time with the scheduled surgery/proced ure as indicated on the consent form. Assessment and Plan Assessment and Plan (1) Chronic renal failure, stage 4 (severe): Status: Chronic Plan - Dr. Dennis Santos MD: Although the patient writes with her left hand she is otherwise right arm dominant. I propose for her a left forearm transposed cephalic vein to radial artery arteriovenous hemodialysis fistula creation. Unfortunately the discoloration of her forearm in the deeply placed cephalic vein would place her at increased access difficulty. I discussed in detail with her the technique, benefit, risk, alternatives. No guarantees of success have been offered. We will schedule and proceed at her discretion. I have asked her to hold her 81 mg aspirin 5 days preprocedure. Copy: Dr. Blanca Vela and Sonja Feliciano, PIN BALL MACHINE MECHANIC-C and Dr. Gustavo Santos M.D., F.A.C.S. On preoperative lab work the patient was noted to be hyperkalemic. 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 Preoperative laboratory repeat for yesterday could not be obtained due to patient noncompliance. Repeat potassium level will be obtained today. Dennis Santos M.D., F.A.C.S.
[2021-07-24] MEDS: 0.9% Normal Saline 1,000 ML 100 ML IV (06:25)
--- NOTE | 2021-07-24 06:25 | EX.PCM.DISCH ---
Discharge Instructions Procedure Fistula Diet Discharge Diet: Renal Diet Activity Discharge Activity: May Not Drive (for 2-3 days or while taking narcotic pain medications.), May Shower and May Take a Tub Bath (in 5 days.) Lifting Restrictions: 5 pounds Keep extremity elevated above heart level: - (Keep arm elevated above the heart level for 3 days.) Dressing / Incision Call your doctor if your incision/area has: Continuous Slow Oozing, Sudden Increased Bleeding (apply pressure and call your doctor.), Increased Pain/ Swelling, Increased Redness and Foul Smelling Discharge Call your doctor if you observe: Fever of 101 or Higher Suture Line Care: Avoid Pulling/Pushing and Avoid Pinching/Bending Cleanse incision/area with: Keep Dressing Clean & Dry Additional Dressing/Incision Instructions:: Change or remove dressing in one day. May protect with a gauze bandaid. Follow Up Care Please Follow Up With: Dennis Santos MD When: Call [phone] to make an appointment for suture removal and follow up in 1 week. Test Results: Test results from this visit will be discussed in further detail at your follow-up appointment, if applicable. Discharge Plan Admission Attending Provider: Dennis Santos Primary Care Provider: Sonja Feliciano NP Discharge Orders/Prescriptions Prescriptions: No Action simvastatin 20 mg tablet 20 mg PO QHS RF: 0 calcitriol 0.25 mcg capsule 0.25 mcg PO DAILY RF: 0 furosemide 40 mg tablet 20 mg PO .qod RF: 0 hydralazine 25 mg tablet 25 mg PO TID Qty: 270 RF: 3 Lantus U-100 Insulin 100 UNIT/ML solution 8 unit SQ QHS RF: 0 aspirin 81 MG tablet,chewable 81 mg PO DAILY@0800 RF: 0 allopurinol 300 MG tablet 300 mg PO DAILY RF: 0 hydroxychloroquine 200 MG tablet 200 mg PO QHS RF: 0 acetaminophen 325 MG tablet 650 mg PO Q6H PRN PRN (Reason: Pain Score 1-10/Temp > 100.7 F) RF: 0 ferrous sulfate 325 mg (65 mg iron) tablet 325 mg PO DAILY RF: 0
[2021-07-24 06:41] LABS: Potassium 3.7 mmol/L (3.5-5.1)
[2021-07-24 07:05] LABS: Bedside Glucose 86 mg/dL (70-110)
[2021-07-24] MEDS: Heparin Injection (Vial) 5,000 UNIT/ML VIAL 5000 UNIT (07:15)
[2021-07-24] MEDS: Bupivacaine Mpf 0.5% 30 ML VIAL (08:00)
[2021-07-24] MEDS: Lidocaine 1% (30 ml sdv) 30 ML Vial (08:00)
[2021-07-24] MEDS: Lidocaine 0.5% (50 ml) 50 ML Vial (08:30)
--- NOTE | 2021-07-24 09:37 | PCM.OPRPT ---
Problems Associated Problem List Diagnoses (1) Chronic renal failure, stage 4 (severe): Report of Operation Date of Procedure: 07/24/21 Pre-Operative Diagnosis: sTAGE iv CHRONIC RENAL INSUFFICIENCY Post-Operative Diagnosis: Same Surgery/Procedure Performed:: Transposition left forearm cephalic vein to radial artery arteriovenous hemodialysis fistula creation Description of Surgical Findings:: Timeout and informed consent was obtained. 76-year-old female was taken to the operating placed on the table underwent monitored anesthesia care. The left upper extremity was sterilely prepped and draped. 900 mg clindamycin given intravenously. 1% lidocaine mixed 50-50 with 0.5% Marcaine was used as a local anesthetic. A total of 19 cc was used. An additional 8 cc of half percent lidocaine was utilized. I did perform ultrasound mapping and marking of the cephalic vein. Local was instilled. A longitudinal incision was made over the vein sharp and blunt dissection used to harvest and security hemoclips were placed. Dissection from Irma to the antecubital space. Distally I ligated the vein and demonstrated that the 3 to 4 cm closest to the wrist were just too diminutive to allow for adequate maturation so I took it back to a branch point and I spatulated it there. I measured the length of the vein and then made a separate longitudinal incision sharply with dissection was used to identify the radial artery side branches secured with hemoclips and the artery was slightly mobilized. Patient then received 7000's of heparin after I had performed tunneling from the radial artery to the antecubital space and carefully placed the ink marked vein in a longitudinal position. It irrigated well. Then initially placed gentle hemostatic clamps on the radial artery and limb blade was used to make an arteriotomy extended with Butcher scissors. I tried to use flow over sisters but I could not get complete hemostasis so I then reverted back to soft vascular clamps. A end-to-side anastomosis made with the vein using running 7-0 Prolene. Prior to completion there is good antegrade retrograde flow the anastomosis was completed there was good flow through the vein it appeared to be in a good curvilinear position. The wounds were then closed with deep layers of interrupted 3-0 Vicryl. The skin edges proximal and running septic or 4-0 Monocryl or interrupted 4-0 Monocryl were indicated. Steri-Strips Telfa soft roll Eder wrap applied. Sponge and instrument and needle counts were reported to the surgeon be correct. Specimens none. Drains none. Blood loss minimal. Dennis Santos M.D., F.A.C.S. Surgeon: Dennis Santos Type of Anesthesia: Local MAC Anesthesiologist: Zhang Sauceda
--- NOTE | 2021-07-24 10:03 | SUR.PHASEI ---
UNABLE TO PALPATE THRILL OR AUSCULTATE BRUIT. DR SELLERS AT BEDSIDE, EVALUATED. CONTINUE CURRENT PLAN OF CARE.
--- NOTE | 2021-07-24 11:09 | SUR.PHASEII ---
Upon reassessment this nurse auscultated fistula and heard bruit. Unable to feel thrill. Dr. Santos aware that in PACU nurse and Dr. Santos were unable to hear and feel thrill and bruit.
== END 2021-07-24 11:43 | disposition home or self-care (01) ==
LOC: SDC 05:51 → AC 05:51
PROVIDERS: PCP Nurse Practitioner; Referring Provider Surgery; Visit Provider Surgery
PROC: (CPT 36820; principal; 2021-07-24 07:15)
DX: I13.0 Hypertensive heart and chronic kidney disease with heart failure and stage 1 through stage 4 chronic kidney disease, or unspecified chronic kidney disease (principal); I50.9 Heart failure, unspecified; E11.22 Type 2 diabetes mellitus with diabetic chronic kidney disease; N18.4 Chronic kidney disease, stage 4 (severe); E11.51 Type 2 diabetes mellitus with diabetic peripheral angiopathy without gangrene; I27.20 Pulmonary hypertension, unspecified; I48.0 Paroxysmal atrial fibrillation; I25.10 Atherosclerotic heart disease of native coronary artery without angina pectoris; M06.9 Rheumatoid arthritis, unspecified; D64.9 Anemia, unspecified; E78.5 Hyperlipidemia, unspecified; E87.5 Hyperkalemia; Z91.19 Patient's noncompliance with other medical treatment and regimen; M10.9 Gout, unspecified; E66.01 Morbid (severe) obesity due to excess calories; Z68.42 Body mass index [BMI] 45.0-49.9, adult; Z78.0 Asymptomatic menopausal state; Z79.82 Long term (current) use of aspirin; Z79.4 Long term (current) use of insulin; Z79.52 Long term (current) use of systemic steroids; Z79.899 Other long term (current) drug therapy; Z86.711 Personal history of pulmonary embolism; Z86.718 Personal history of other venous thrombosis and embolism; Z95.5 Presence of coronary angioplasty implant and graft
CPT/HCPCS: 01844; 36820; 36415; 80048; 82962; 84132; 85027; 93005; J7030; J2405

== ENCOUNTER 2021-08-01 17:42 | Outpatient (CLI) | payer MEDICARE, SELFPAY ==
[2016-12-05 15:47] VITALS: BMI 35.6
[2021-08-01 18:11] VITALS: BP 133/62; PULSE 78; RESP 16; TEMP 37.1; O2SAT 100; BMI 29.2
[2021-08-01] MEDS: 0.9% Saline Lock 10 ML Syringe IV (18:21)
[2021-08-01 18:47] VITALS: BP 151/53; PULSE 76; RESP 16; TEMP 36.9; O2SAT 100
[2021-08-01 19:35] VITALS: BP 152/68; PULSE 77; RESP 16; TEMP 36.9; O2SAT 99
== END 2021-08-01 19:50 | disposition home or self-care (01) ==
LOC: ICUOUT 17:43 → MS2 19:34
PROVIDERS: PCP Nurse Practitioner; Referring Provider Nurse Practitioner Acute Care; Visit Provider Nurse Practitioner Acute Care
DX: Z23 Encounter for immunization (principal); U07.1 COVID-19
CPT/HCPCS: M0243; Q0244

== ENCOUNTER → 2021-08-27 13:36 | Outpatient (CLI) | payer MEDICARE, SELFPAY ==
[2016-12-05 15:47] VITALS: BMI 35.6
[2021-08-27 17:00] LABS: Albumin, Serum 1.9 g/dL (3.2-5.0); BUN 73 mg/dL (7-18); BUN/Creat Ratio 18.2 RATIO (10-20); Calcium,Total 8.3 mg/dL (8.5-10.1); Chloride 109 mmol/L (98-107); Creatinine, Serum 4.02 mg/dL (0.55-1.02); EST Glomerular Filtration Rate 12 mL/min (>60); Est Glom Filt Rate - Afr Amer 14 mL/min (>60); Glucose 93 mg/dL (74-106); Phosphorus 5.2 mg/dL (2.5-4.9); Potassium 4.9 mmol/L (3.5-5.1); Sodium Level 140 mmol/L (136-145)
[2021-08-28 08:39] LABS: PTHIN 465.7 pg/mL (18.4-80.1)
== END ==
PROVIDERS: PCP Nurse Practitioner; Visit Provider Internal Medicine Nephrology
DX: N18.4 Chronic kidney disease, stage 4 (severe) (principal)
CPT/HCPCS: 36415; 80069; 83970

== ENCOUNTER → 2021-08-28 13:41 | Outpatient (CLI) | payer MEDICARE, SELFPAY ==
[2016-12-05 15:47] VITALS: BMI 35.6
--- NOTE | 2021-08-28 13:45 | CT_ITS ---
STUDY: CT Abdomen And Pelvis W/O Contrast Injection 08/28/2021 2:21 PM REASON FOR EXAM: Female, 76 years old. ABDOMINAL PAIN abd pain TECHNIQUE: Transaxial images were obtained with oral contrast, and without intravenous contrast. Individualized dose optimization techniques were used for this CT. COMPARISON: None. FINDINGS: There are atherosclerotic calcifications of visualized coronary arteries. The visualized portions of the heart are within normal limits. Normal liver. There are multiple gallstones. Normal spleen. Normal pancreas. Normal bilateral adrenal glands. Severe right hydronephrosis and hydroureter. Moderate left hydronephrosis and hydroureter. Perinephric inflammatory stranding bilaterally suggesting an infectious process. Normal visualized stomach. Normal small intestine. Stool throughout the colon. There is non-visualization of the appendix. There are no acute findings of the abdominal aorta. There is an IVC filter in place. Subcentimeter mesenteric lymph nodes. Urinary bladder wall has wall thickening. This can be related to a partially contractile state. However, a cystitis is not excluded. Urinalysis should be performed in an effort to exclude cystitis. There is vaginal prolapse with prolapse of the urinary bladder into the vaginal canal.There is absence of the uterus consistent with a prior hysterectomy. There is a ventral hernia containing nonobstructed colon and small bowel. There is a more lower ventral ventral hernia containing nonobstructed small bowel. Strangulation, obstruction, or incarceration is not identified. A prospective or current developing event cannot be excluded but is not evident on this study. Physical examination may be warranted in individuals with hernias or ostomy. Surveillance may be warranted in individuals with hernias or ostomy. There are diffuse degenerative changes of the visualized lumbar spine. Degenerative findings of the hips. There is bilateral neural foraminal stenosis at L4-5 and L5-S1. IMPRESSION: (NOT LISTED IN ORDER OF SIGNIFICANCE) Urinary bladder wall has wall thickening. This can be related to a partially contractile state. However, a cystitis is not excluded. Urinalysis should be performed in an effort to exclude cystitis. Severe right hydronephrosis and hydroureter. Moderate left hydronephrosis and hydroureter. These findings may be related to cystitis. However urinary bladder neoplasm cannot be excluded. Gallstones. There is vaginal prolapse with prolapse of the urinary bladder into the vaginal canal Perinephric inflammatory stranding bilaterally suggesting an infectious process. There is a ventral hernia containing nonobstructed colon and small bowel. There is a more lower ventral ventral hernia containing nonobstructed small bowel. Strangulation, obstruction, or incarceration is not identified. A prospective or current developing event cannot be excluded but is not evident on this study. Other findings as above. Electronically Signed: Zaid Lawson MD at 14:28 EDT , Service support , CT/Abdomen/Pel W ORAL Cont Only
== END ==
PROVIDERS: PCP Nurse Practitioner; Referring Provider Surgery; Visit Provider Surgery
DX: K46.9 Unspecified abdominal hernia without obstruction or gangrene (principal); R10.9 Unspecified abdominal pain
CPT/HCPCS: 74176

== ENCOUNTER 2021-09-06 05:38 | Day surgery (SDC) | payer MEDICARE, SELFPAY ==
[2016-12-05 15:47] VITALS: BMI 35.6
[2021-09-06] VITALS (7 sets, daily range): BP systolic 98–141; BP diastolic 39–62; PULSE 77–97; RESP 16; TEMP 35.9–36.6; O2SAT 99–100; BMI 27.7
[2021-09-06] MEDS: Lactated Ringers 1,000 ML 100 ML IV (06:35)
--- NOTE | 2021-09-06 07:25 | DCINST_ITS ---
Discharge Instructions Diet Discharge Diet: No restrictions Activity Discharge Activity: Return to Normal Activity and May Not Drive (while taking narcotic pain medications.) Dressing / Incision Call your doctor if you observe: Fever of 101 or Higher Follow Up Care Please Follow Up With: Pete Yanez MD When: Call [phone] for an appointment in 3 months to plan to change stent. Test Results: Test results from this visit will be discussed in further detail at your follow-up appointment, if applicable. Discharge Plan Admission Primary Reason for Your Visit: stent Attending Provider: Pete Yanez Primary Care Provider: Sonja Feliciano NP Instructions Patient Instructions: Having a Ureteral Stent Discharge Orders/Prescriptions Prescriptions: Continued simvastatin 20 mg tablet 20 mg PO QHS RF: 0 calcitriol 0.25 mcg capsule 0.25 mcg PO DAILY RF: 0 hydralazine 25 mg tablet 25 mg PO TID Qty: 270 RF: 3 Lantus U-100 Insulin 100 UNIT/ML solution 8 unit SQ QHS RF: 0 aspirin 81 MG tablet,chewable 81 mg PO DAILY@0800 RF: 0 allopurinol 300 MG tablet 300 mg PO DAILY RF: 0 hydroxychloroquine 200 MG tablet 200 mg PO QHS RF: 0 acetaminophen 325 MG tablet 650 mg PO Q6H PRN PRN (Reason: Pain Score 1-10/Temp > 100.7 F) RF: 0 ferrous sulfate 325 mg (65 mg iron) tablet 325 mg PO DAILY RF: 0 Referrals / Follow Up: Pete Yanez MD [STAFF PHYSICIAN] - Sonja Feliciano NP, ALODIZE MACHINE OPERATOR-C [Primary Care Provider] - Disposition Disposition (needs filled in before D/C Order can be placed): Home, Self Care
--- NOTE | 2021-09-06 07:25 | HP.PCM_ITS ---
HPI - General HPI Narrative DEVORAH ALLAN, is a 76 F who presents for placement of bilateral stents, h/o chronic renal insufficiency, and recent ct scan with bilateral hydronephrosis. [facility] Medical History (Updated 09/05/21 @ 14:49 by Mounika Rios) Ambulates with cane Arthritis Atherosclerotic heart disease of [place] coronary artery without angina pectoris Benign essential HTN Cardiology follow-up encounter Cellulitis CHF (congestive heart failure) Chronic renal failure, stage 4 (severe) Chronic steroid use Debility Depression Diabetes DM2 (diabetes mellitus, type 2) Dyslipidemia Elevated d-dimer Essential hypertension Gastroenteritis Gout High cholesterol History of echocardiogram History of edema History of pain when walking History of renal disease HTN (hypertension) Insulin dependent diabetes mellitus Lymphedema Morbid obesity with BMI of 45.0-49.9, adult Non-smoker Osteopenia Paroxysmal atrial fibrillation Personal history of DVT (deep vein thrombosis) Premature atrial contractions Premature ventricular contraction Presence of IVC filter Pressure ulcer Pulmonary hypertension Pulmonary hypertension PVD (peripheral vascular disease) Rheumatoid arthritis Sepsis Shortness of breath on exertion Type 2 diabetes mellitus with other circulatory complications Ulcer of left lower extremity with fat layer exposed Ulcer of right lower extremity with fat layer exposed UTI (urinary tract infection) Varicose veins of both lower extremities Venous insufficiency of both lower extremities Walker as ambulation aid Wound of right lower extremity Home Medications Lantus U-100 Insulin 8 unit SQ QHS 10/16/18 [History Last Taken 07/23/21] allopurinol 300 mg PO DAILY 10/16/18 [History Last Taken 07/23/21] aspirin 81 mg PO DAILY@0800 10/16/18 [History Last Taken 09/03/21] hydroxychloroquine 200 mg PO QHS 10/16/18 [History Last Taken 07/23/21] ferrous sulfate 325 mg (65 mg iron) tablet 325 mg PO DAILY 08/15/20 [History Last Taken 07/23/21] acetaminophen 650 mg PO Q6H PRN PRN tablet 03/13/21 [Rx Last Taken 07/23/21] simvastatin 20 mg tablet 20 mg PO QHS 03/27/21 [History Last Taken 07/23/21] calcitriol 0.25 mcg capsule 0.25 mcg PO DAILY 06/17/21 [History Last Taken 07/23/21] hydralazine 25 mg tablet 25 mg PO TID #270 tab 06/17/21 [Rx Last Taken 09/06/21 05:00] Allergy/AdvReac Type Severity Reaction Status Date / Time cefepime HCl [From Maxipime] Allergy Itching Verified 09/06/21 06:23 cephalexin monohydrate Allergy Hives Verified 09/06/21 06:23 [From Keflex] clopidogrel [From Plavix] Allergy Itching Verified 09/06/21 06:23 and hives all over piperacillin [From Zosyn] Allergy Hives Verified 09/06/21 06:23 tazobactam [From Zosyn] Allergy Hives Verified 09/06/21 06:23 ciprofloxacin [From Cipro] AdvReac Itching Verified 09/06/21 06:23 hydromorphone HCl AdvReac Itching Verified 09/06/21 06:23 [From Dilaudid] Family History Father Hypertension Brother CAD (coronary artery disease) CABG x 3 in 2016 Surgical History (Updated 09/05/21 @ 14:49 by Mounika Rios) History of bladder surgery History of colonoscopy (~04/2021) History of repair of rotator cuff History of total hysterectomy Hx of appendectomy Hx of surgical procedure S/P angioplasty with stent (~12/05/16) Social History Smoking Status: Never smoker alcohol intake: never substance use type: does not use caffeine: Yes Type: carbonated beverages what type of physical activity do you participate in: none seatbelt use: always do you feel safe at home: Yes Vital Signs Vital Signs Vital Signs: 09/06/21 06:25 Temperature 97.8 F Temperature Source Temporal Pulse Rate 97 Respiratory Rate 16 Respiratory Pattern Normal Blood Pressure 141/52 H Blood Pressure Mean 81 Blood Pressure Source Monitor Blood Pressure Position Semi-Fowlers Blood Pressure Location Right Arm Pulse Ox 100 Oxygen Delivery Method Room Air Weight Weight: 68.8 kg Body Mass Index (BMI) 27.7
[2021-09-06 07:40] LABS: Bedside Glucose 77 mg/dL (70-110)
--- NOTE | 2021-09-06 08:43 | SUR.PHASEII ---
Patient has fistula on left lower arm. Thrill and bruit observed.
--- NOTE | 2021-09-06 12:38 | OP.PCM_ITS ---
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 This is a pleasant elderly female however unfortunately she is in poor medical health with lots of chronic medical problems she has poor renal function and she was found to have bilateral hydronephrosis we plan to proceed with placement of bilateral stents today. She was taken back to the operating room at the smooth induction of general anesthesia placed in dorsolithotomy position. The urethra vaginal area prepped and draped in usual sterile fashion she has significant atrophy of the vaginal area, went into the bladder with the scope immediately the entire base of the bladder was covered with whitish purulent urine this is all drained out and flushed out from the bladder I then was able to identify the right ureteral orifice used a Pollack catheter with a wire to cannulate this and go all the way up to the kidney I then performed a retrograde pyelogram to confirm the anatomy and there was severe hydronephrosis in the right side advance a wire a 0.038 Glidewire up into the kidney over the wire place a stent it was 6 Malaysian by 26 cm stent the stent coiled in the kidney bladder good position. I then went to the left side of the bladder identified the left ureteral orifice advanced a wire with a Pollick catheter of the left side and performed a retrograde pyelogram to see contrast go up to the kidney again there was severe hydronephrosis on the left side as well and then I placed a stent up in the left kidney and over the stent I placed a stent on the left side over the wire. I then drained the bladder patient's anesthetic was reversed she is given instruction follow-up with her systems architecture analyst and will see her in 3 months for another stent change. Surgeon: cordell Type of Anesthesia: MAC/Supplemental/Local Drains: stent bilateral 6 x 26 cm Admit VTE Documentation VTE Present on Admission: No VTE Mechan Device Prophylaxis: SCD's VTE Pharm Prophylaxis ordered?: No
== END 2021-09-06 08:46 | disposition home or self-care (01) ==
LOC: SDC 05:40 → AC 05:40
PROVIDERS: PCP Nurse Practitioner; Referring Provider Urology; Visit Provider Urology
PROC: (CPT 52332; principal; 2021-09-06 07:20)
DX: N13.739 Vesicoureteral-reflux with reflux nephropathy with hydroureter, unspecified (principal); N18.4 Chronic kidney disease, stage 4 (severe); N13.30 Unspecified hydronephrosis; N81.9 Female genital prolapse, unspecified; R32 Unspecified urinary incontinence; I13.0 Hypertensive heart and chronic kidney disease with heart failure and stage 1 through stage 4 chronic kidney disease, or unspecified chronic kidney disease; E11.22 Type 2 diabetes mellitus with diabetic chronic kidney disease; I50.9 Heart failure, unspecified; I48.0 Paroxysmal atrial fibrillation; I27.20 Pulmonary hypertension, unspecified; I25.10 Atherosclerotic heart disease of native coronary artery without angina pectoris; E11.51 Type 2 diabetes mellitus with diabetic peripheral angiopathy without gangrene; E78.5 Hyperlipidemia, unspecified; M06.9 Rheumatoid arthritis, unspecified; M10.9 Gout, unspecified; F32.A Depression, unspecified; E66.01 Morbid (severe) obesity due to excess calories; Z68.42 Body mass index [BMI] 45.0-49.9, adult; Z79.82 Long term (current) use of aspirin; Z79.4 Long term (current) use of insulin; Z79.52 Long term (current) use of systemic steroids; Z79.899 Other long term (current) drug therapy; Z86.718 Personal history of other venous thrombosis and embolism; Z86.711 Personal history of pulmonary embolism
CPT/HCPCS: 52332; 76000; 82962; J7120; C1769; C2617; J2405

== ENCOUNTER → 2021-09-17 12:54 | Outpatient (CLI) | payer MEDICARE, SELFPAY ==
[2016-12-05 15:47] VITALS: BMI 35.6
[2021-09-17 13:09] VITALS: BP 146/76; PULSE 95; RESP 16; TEMP 35.9; O2SAT 98; BMI 27.8
[2021-09-17 13:48] VITALS: BP 137/56; PULSE 81; RESP 16; TEMP 36.1; O2SAT 99
[2021-09-17 14:48] VITALS: BP 148/65; PULSE 79; RESP 16; TEMP 36.1; O2SAT 100
[2021-09-17 15:21] VITALS: BP 146/69; PULSE 79; RESP 16; TEMP 35.9; O2SAT 100
== END ==
PROVIDERS: PCP Nurse Practitioner; Referring Provider Internal Medicine Hematology & Oncology; Visit Provider Internal Medicine Hematology & Oncology
DX: N18.4 Chronic kidney disease, stage 4 (severe) (principal); D63.1 Anemia in chronic kidney disease
CPT/HCPCS: 36430; 86850; 86900; 86901; 86920; 86922; J7040; P9016; A4216

== ENCOUNTER → 2021-09-20 14:56 | Outpatient (CLI) | payer MEDICARE, SELFPAY ==
[2016-12-05 15:47] VITALS: BMI 35.6
[2021-09-20 17:35] LABS: Albumin, Serum 1.8 g/dL (3.2-5.0); BUN 63 mg/dL (7-18); BUN/Creat Ratio 15.3 RATIO (10-20); Calcium,Total 8.8 mg/dL (8.5-10.1); Chloride 105 mmol/L (98-107); Creatinine, Serum 4.11 mg/dL (0.55-1.02); EST Glomerular Filtration Rate 11 mL/min (>60); Est Glom Filt Rate - Afr Amer 14 mL/min (>60); Glucose 109 mg/dL (74-106); Phosphorus 4.4 mg/dL (2.5-4.9); Sodium Level 136 mmol/L (136-145)
[2021-09-23 07:30] LABS: PTHIN 265.7 pg/mL (18.4-80.1)
== END ==
PROVIDERS: PCP Nurse Practitioner; Referring Provider Internal Medicine Nephrology; Visit Provider Internal Medicine Nephrology
DX: N18.4 Chronic kidney disease, stage 4 (severe) (principal)
CPT/HCPCS: 36415; 80069; 83970

== ENCOUNTER → 2021-09-30 16:03 | Outpatient (CLI) | payer MEDICARE, SELFPAY ==
[2016-12-05 15:47] VITALS: BMI 35.6
[2021-09-30 17:42] LABS: Absolute Neutrophil Count 6.9 X10^3/uL (2.0-7.7); Basophil# 0.06 X10^3/uL; Basophil% 0.6 % (0-1); Eosinophil# 0.32 X10^3/uL; Eosinophils% 3.2 % (0-5); Hematocrit 30.3 % (37-47); Lymphocyte % 21.8 % (19-41); Mean Corp Hgb Conc 29.7 g/dL (32-36); Mean Corpuscular Hgb 31.1 pg (27.0-32.0); Mean Corpuscular Volume 104.8 fL (81-99); Mean Platelet Vol. 9.8 fl (6.2-12.0); Monocyte# 0.54 X10^3/uL; Monocyte% 5.3 % (0-10); NRBC Flagged by Analyzer 0.2 % (0-5); Neutrophil # 6.92 X10^3/uL (2.7-7.7); Neutrophil % 68.5 % (47-70); POSITIVE MORPHOLOGY YES; Platelet Count 303 K/mm3 (150-450); RBC Distribution Width CV 19.8 % (11.6-14.6); RBC Distribution Width SD 75.8 fl (35.1-43.9); Red Blood Count 2.89 M/mm3 (4.2-5.4); White Blood Count 10.1 K/mm3 (4.4-11.0)
[2021-09-30 17:45] LABS: Differential Indicated SCAN CRITERIA MET
[2021-09-30 17:58] LABS: ALB/GLOB Ratio 0.4 RATIO (0.9-2.4); AST(SGOT) 12 U/L (15-37); Alanine Aminotransfer ALT/SGPT 11 U/L (13-56); Albumin, Serum 1.9 g/dL (3.2-5.0); Alkaline Phosphatase 122 U/L (45-117); Anion Gap 10 (5-15); BUN 69 mg/dL (7-18); BUN/Creat Ratio 17.5 RATIO (10-20); Calcium,Total 8.6 mg/dL (8.5-10.1); Chloride 108 mmol/L (98-107); Creatinine, Serum 3.95 mg/dL (0.55-1.02); EST Glomerular Filtration Rate 12 mL/min (>60); Est Glom Filt Rate - Afr Amer 14 mL/min (>60); Globulin 5.1 g/dL (2.2-4.2); Glucose 101 mg/dL (74-106); Phosphorus 5.7 mg/dL (2.5-4.9); Potassium 4.4 mmol/L (3.5-5.1); Sodium Level 136 mmol/L (136-145)
[2021-09-30 18:22] LABS: Anisocytosis 2+; Hypochromasia RARE; Macrocytosis 2+; Platelet Estimate ADEQUATE (ADEQ); Red Cell Morphology N CHROM NORMAL (NORM C&C)
[2021-10-01 08:28] LABS: PTHIN 249.7 pg/mL (18.4-80.1)
== END ==
PROVIDERS: PCP Nurse Practitioner; Referring Provider Internal Medicine Nephrology; Visit Provider Internal Medicine Nephrology
DX: M06.00 Rheumatoid arthritis without rheumatoid factor, unspecified site (principal); I12.0 Hypertensive chronic kidney disease with stage 5 chronic kidney disease or end stage renal disease; N18.5 Chronic kidney disease, stage 5; M10.00 Idiopathic gout, unspecified site; I26.99 Other pulmonary embolism without acute cor pulmonale; M17.0 Bilateral primary osteoarthritis of knee; N25.81 Secondary hyperparathyroidism of renal origin; M21.40 Flat foot [pes planus] (acquired), unspecified foot; E78.5 Hyperlipidemia, unspecified; Z79.899 Other long term (current) drug therapy; Z86.718 Personal history of other venous thrombosis and embolism
CPT/HCPCS: 36415; 80053; 83970; 84100; 84550; 85025

== ENCOUNTER → 2021-10-07 09:50 | Outpatient (CLI) | payer MEDICARE, SELFPAY ==
[2016-12-05 15:47] VITALS: BMI 35.6
[2021-10-07 10:14] LABS: Absolute Lymphocyte Count 1.56 X10^3/uL (0.83-4.51); Absolute Neutrophil Count 8.1 X10^3/uL (2.0-7.7); Basophil# 0.07 X10^3/uL; Basophil% 0.6 % (0-1); Eosinophils% 2.8 % (0-5); Hematocrit 28.8 % (37-47); Lymphocyte # 1.56 X10^3/ul (0.83-4.51); Lymphocyte % 14.4 % (19-41); Mean Corp Hgb Conc 31.3 g/dL (32-36); Mean Corpuscular Hgb 31.7 pg (27.0-32.0); Mean Corpuscular Volume 101.4 fL (81-99); Mean Platelet Vol. 9.9 fl (6.2-12.0); Monocyte# 0.77 X10^3/uL; Monocyte% 7.1 % (0-10); NRBC Flagged by Analyzer 0 % (0-5); Neutrophil # 8.07 X10^3/uL (2.7-7.7); Neutrophil % 74.5 % (47-70); POSITIVE MORPHOLOGY YES; Platelet Count 246 K/mm3 (150-450); RBC Distribution Width CV 18.8 % (11.6-14.6); RBC Distribution Width SD 70.5 fl (35.1-43.9); Red Blood Count 2.84 M/mm3 (4.2-5.4); White Blood Count 10.8 K/mm3 (4.4-11.0)
[2021-10-07 10:19] LABS: Differential Indicated SCAN CRITERIA MET
[2021-10-07 10:37] LABS: Anisocytosis 1+
[2021-10-07 10:39] LABS: Anion Gap 11 (5-15); BUN 81 mg/dL (7-18); BUN/Creat Ratio 13.4 RATIO (10-20); Calcium,Total 7.9 mg/dL (8.5-10.1); Chloride 109 mmol/L (98-107); Creatinine, Serum 6.06 mg/dL (0.55-1.02); EST Glomerular Filtration Rate 7 mL/min (>60); Est Glom Filt Rate - Afr Amer 9 mL/min (>60); Glucose 93 mg/dL (74-106); Potassium 4.3 mmol/L (3.5-5.1); Sodium Level 135 mmol/L (136-145)
== END ==
PROVIDERS: PCP Nurse Practitioner; Referring Provider Physician Assistant; Visit Provider Physician Assistant
DX: T82.898A Other specified complication of vascular prosthetic devices, implants and grafts, initial encounter (principal)
CPT/HCPCS: 36415; 80048; 85025

== ENCOUNTER → 2021-10-08 14:17 | Outpatient (CLI) | payer MEDICARE, SELFPAY ==
[2016-12-05 15:47] VITALS: BMI 35.6
[2021-10-09 08:25] LABS: Hepatitis B Surface Antigen Non-Reactive (Nonreactive)
== END ==
PROVIDERS: PCP Nurse Practitioner; Visit Provider Internal Medicine Nephrology
DX: N18.6 End stage renal disease (principal)
CPT/HCPCS: 36415; 87340

== ENCOUNTER 2021-10-09 10:19 | Day surgery (SDC) | payer MEDICARE, SELFPAY ==
[2016-12-05 15:47] VITALS: BMI 35.6
[2021-10-08 08:25] VITALS: BMI 27.6
--- NOTE | 2021-10-09 10:49 | HP.PCM_ITS ---
History and Physical Date of Admission: 10/09/21 ADDENDUM by CHADD Goldberg on 10/07/21 at 1115 Intake Chief Complaint: possible fistulogram Allergies cefepime HCl [From Maxipime] Allergy (Verified 10/07/21 09:24) Itching cephalexin monohydrate [From Keflex] Allergy (Verified 10/07/21 09:24) Hives clopidogrel [From Plavix] Allergy (Verified 10/07/21 09:24) Itching and hives all over piperacillin [From Zosyn] Allergy (Verified 10/07/21 09:24) Hives tazobactam [From Zosyn] Allergy (Verified 10/07/21 09:24) Hives ciprofloxacin [From Cipro] Adverse Reaction (Verified 10/07/21 09:24) Itching hydromorphone HCl [From Dilaudid] Adverse Reaction (Verified 10/07/21 09:24) Itching Medications Lantus U-100 Insulin 8 unit SQ QHS 10/16/18 [History Confirmed 10/07/21] allopurinol 300 mg PO DAILY 10/16/18 [History Confirmed 10/07/21] aspirin 81 mg PO DAILY@0800 10/16/18 [History Confirmed 10/07/21] hydroxychloroquine 200 mg PO QHS 10/16/18 [History Confirmed 10/07/21] ferrous sulfate 325 mg (65 mg iron) tablet 325 mg PO DAILY 08/15/20 [History Confirmed 10/07/21] acetaminophen 650 mg PO Q6H PRN PRN tablet 03/13/21 [Rx Confirmed 10/07/21] simvastatin 20 mg tablet 20 mg PO QHS 03/27/21 [History Confirmed 10/07/21] calcitriol 0.25 mcg capsule 0.25 mcg PO DAILY 06/17/21 [History Confirmed 10/07/21] hydralazine 25 mg tablet 25 mg PO TID #270 tab 06/17/21 [Rx Confirmed 10/07/21] Assessment and Plan Assessment and Plan (1) Problem with dialysis access: Status: Acute Qualifiers: Encounter type: initial encounter Qualified Code(s): T82.898A - Other specified complication of vascular prosthetic devices, implants and grafts, initial encounter Orders: Orders: Basic Metabolic Profile (BMP) Today CBC W/Diff, Automated Today Plan: Patient's fistulogram will need to be performed with carbon dioxide as patient is not currently on dialysis yet. 10/07/21 1115<Electronically signed by Skylar JAY PA-C>Date Skylar Goldberg PA-C cc: Dr. Dennis Santos MD ~*Signed Intake Vital Signs 10/07/21 09:21 Height 5 ft 2 in Weight: 151 lb BMI 27.6 BP 133/67 H Blood Pressure Location Rt brachial Position Sitting Respiration 18 Pulse 114 H Pulse Source Monitor Temp 96.9 F L Temp Source Temporal Pulse Oximetry (%) 95 Oxygen Delivery Method room air Intake Visit Reasons: set up fistulogram Chief Complaint: possible fistulogram Staff Analyst Required: No Is patient in pain?: No Allergies cefepime HCl [From Maxipime] Allergy (Verified 10/07/21 09:24) Itching cephalexin monohydrate [From Keflex] Allergy (Verified 10/07/21 09:24) Hives clopidogrel [From Plavix] Allergy (Verified 10/07/21 09:24) Itching and hives all over piperacillin [From Zosyn] Allergy (Verified 10/07/21 09:24) Hives tazobactam [From Zosyn] Allergy (Verified 10/07/21 09:24) Hives ciprofloxacin [From Cipro] Adverse Reaction (Verified 10/07/21 09:24) Itching hydromorphone HCl [From Dilaudid] Adverse Reaction (Verified 10/07/21 09:24) Itching Medications Lantus U-100 Insulin 8 unit SQ QHS 10/16/18 [History Confirmed 10/07/21] allopurinol 300 mg PO DAILY 10/16/18 [History Confirmed 10/07/21] aspirin 81 mg PO DAILY@0800 10/16/18 [History Confirmed 10/07/21] hydroxychloroquine 200 mg PO QHS 10/16/18 [History Confirmed 10/07/21] ferrous sulfate 325 mg (65 mg iron) tablet 325 mg PO DAILY 08/15/20 [History Confirmed 10/07/21] acetaminophen 650 mg PO Q6H PRN PRN tablet 03/13/21 [Rx Confirmed 10/07/21] simvastatin 20 mg tablet 20 mg PO QHS 03/27/21 [History Confirmed 10/07/21] calcitriol 0.25 mcg capsule 0.25 mcg PO DAILY 06/17/21 [History Confirmed 10/07/21] hydralazine 25 mg tablet 25 mg PO TID #270 tab 06/17/21 [Rx Confirmed 10/07/21] [facility] Medical History (Updated 10/07/21 @ 10:19 by Skylar JAY, PA-C) Ambulates with cane Arthritis Atherosclerotic heart disease of [place] coronary artery without angina pectoris Benign essential HTN Cardiology follow-up encounter Cellulitis CHF (congestive heart failure) Chronic renal failure, stage 4 (severe) Chronic steroid use Debility Depression Diabetes DM2 (diabetes mellitus, type 2) Dyslipidemia Elevated d-dimer Essential hypertension Gastroenteritis Gout High cholesterol History of echocardiogram History of edema History of pain when walking History of renal disease HTN (hypertension) Insulin dependent diabetes mellitus Lymphedema Morbid obesity with BMI of 45.0-49.9, adult Non-smoker Osteopenia Paroxysmal atrial fibrillation Personal history of DVT (deep vein thrombosis) Premature atrial contractions Premature ventricular contraction Presence of IVC filter Pressure ulcer Problem with dialysis access Pulmonary hypertension Pulmonary hypertension PVD (peripheral vascular disease) Rheumatoid arthritis Sepsis Shortness of breath on exertion Type 2 diabetes mellitus with other circulatory complications Ulcer of left lower extremity with fat layer exposed Ulcer of right lower extremity with fat layer exposed UTI (urinary tract infection) Varicose veins of both lower extremities Venous insufficiency of both lower extremities Walker as ambulation aid Wound of right lower extremity Surgical History History of bladder surgery History of colonoscopy (~04/2021) History of repair of rotator cuff History of total hysterectomy Hx of appendectomy Hx of surgical procedure S/P angioplasty with stent (~12/05/16) Family History Father Hypertension Brother CAD (coronary artery disease) CABG x 3 in 2016 Social History Smoking Status: Never smoker alcohol intake: never substance use type: does not use caffeine: Yes Type: carbonated beverages what type of physical activity do you participate in: none seatbelt use: always do you feel safe at home: Yes HPI HPI HPI: DEVORAH ALLAN, is a 76 F who presents to the office today for a follow-up of her left forearm transposed fistula. Dr. Santos performed a transposition left forearm cephalic vein to radial artery AV hemodialysis fistula on 07/24/21. Patient was scheduled for a follow-up last week however had to reschedule due to GI illness. She noted nausea and vomiting and diarrhea. She is not currently on dialysis. She notes minimal amount of numbness of the thumb. She denies pain at the fistula site. Dr. Vela is her pressurised container filler. Patient last saw Dr. Santos in August of this year. At that time, he had recommended a future fistulogram as the fistula was having difficulty with maturation. Patient does have a history of A Fib. She is maintained on a daily aspirin. ROS General General: No weight change, appetite, fatigue, colon cancer, breast cancer or weakness HEENT HEENT: No difficulty swallowing, eye injury, eye surgery, swollen glands or hoarseness Endo Endocrine: Yes diabetes mellitus; No thyroid disease, thyroid cancer, Hair loss, heat intolerance or cold intolerance Musc Musculoskeletal: Yes arthritis and rheumatoid arthritis; No back problems, gout or joint pain Cardio Cardiovascular: Yes murmur, high blood pressure and heart stent; No pacemaker, heart disease, atrial fibrillation, heart attack, palpitations, shortness of breat with exertion or chest pain Psych Psychiatric: No depression, anxiety or hearing voices Resp Respiratory: No shortness of breath, No sleep apnea, No cough, No COPD, No asthma, No emphysema and No wheezing Gastro Gastrointestinal: No abdominal pain, No nausea or vomiting, No diarrhea, No constipation, No blood in stool, No acid reflux, No hemorrhoids, No ulcers, No gallbladder problem and No black,tarry stools Ish Hematologic: No blood thinners, No blood disorders, No bleeding, Yes anemia and No blood clots Neuro Neurologic: No weakness Exam Const General: cooperative, comfortable, no acute distress and frail appearing [facility] Head: normal to inspection Eyes General: appearance normal, both eyes and all related structures Neck Neck: normal visual inspection Neck mass: No Resp Effort & Inspection: normal respiratory effort Auscultation: clear to auscultation bilaterally Cardio Other: Currently in A Fib. GI Inspection: normal to inspection Auscultation: normal bowel sounds Skin General: no rashes or lesions noted Neuro General: no focal motor deficits and CN's II-XI intact bilaterally Extrem Other: Left forearm transposed AV fistula- very diminished pulse, bruit and thrill. Her left thumb notably discolored purple. Bilateral hands were on the cooler side. Equal bilateral production designer strength. Psych Appearance: grossly normal Affect: normal affect COVID (Procedure Consent) Procedure Criteria Procedure Criteria: Yes Elective The surgeon/proceduralist and patient have discussed in detail the risk of exposure to and/or potential harm posed by the COVID-19 virus with having a surgery/procedure at this time versus the risk of delaying the surgery/procedure. It is not possible to know either the risk of delaying the surgery or procedure or chance of getting an infection with perfect accuracy, but a joint decision was made between the patient and the surgeon/proceduralist to proceed at this time with the scheduled surgery/procedure as indicated on the consent form. Assessment and Plan Assessment and Plan (1) Problem with dialysis access: Status: Acute Qualifiers: Encounter type: initial encounter Qualified Code(s): T82.898A - Other specified complication of vascular prosthetic devices, implants and grafts, initial encounter Orders: Orders: Basic Metabolic Profile (BMP) Today CBC W/Diff, Automated Today Plan - Skylar JAY PA-C: Unfortunately patient's fistula presents as rapidly decline at risk of failure. Patient will obtain lab work today in preparation for a Thursday procedure. Dr. Santos will plan to perform a left forearm AV fistulogram with possible intervention. Procedure details, risks and benefits have been explained to the patient. She will continue her aspirin for this procedure. On October 08, 2021 we were contacted by the patient's pressurised container filler to Dr. Blanca Vela requesting that at the same setting we placed tunneled hemodialysis catheter as the patient is in need of starting hemodialysis immediately. The patient is also aware of technique, benefit, risk, alternatives. Subsequent to the fistulogram we anticipate placing tunneled dialysis catheters. Dennis Santos M.D., F.A.C.S.
--- NOTE | 2021-10-09 12:19 | OP.PCM_ITS ---
Problems Associated Problem List Diagnoses (1) Problem with dialysis access: (2) Chronic renal insufficiency, stage V: Report of Operation Date of Procedure: 10/09/21 Pre-Operative Diagnosis: Failure to mature transposed left forearm cephalic vein to radial artery to venous hemodialysis fistula. Stage V chronic renal failure need of urgent hemodialysis access in the form of tunneled dialysis catheters Post-Operative Diagnosis: Same Surgery/Procedure Performed:: Left upper extremity carbon dioxide fistulogram with 4 x 2 Powerflex anastomotic and proximal fistula angioplasty Right internal jugular 19 cm precurved palindrome catheter placement Description of Surgical Findings:: Timeout informed consent was obtained. The patient was taken to the special procedures lab placed upon the table. The left upper extremity was sterilely prepped and draped. 50 mcg of fentanyl and 1 mg Versed were given his intravenous sedation. Under ultrasound guidance local was instilled closer to the antecubital space retrograde with flow. 2% lidocaine was used. Then a micropuncture needle was inserted ultrasound guidance micropuncture wire 6 Azerbaijani short sheath dilator. Using an 035 angled Glidewire was able to get a good 4 [place] glide cath into the radial artery proximal to the anastomosis. Using 8 cc of carbon dioxide get a fistulogram of the forearm. This demonstrated stenosis at the anastomosis in the very proximal portion of the fistula. I then was able to place a 4 x 2 Powerflex balloon and did very do gentle balloon angioplasty of the anastomosis and proximal fistula. I only took the anastomosis up to 6 yue of pressure. The proximal portion of the fistula we took up to 18 yue of pressure. Completion, dioxide fistulogram demonstrated now more normalized flow. I completed the carbon dioxide fistulogram of the upper arm and chest area with good outflow. Having achieved that the sheath was removed and a U suture of 4-0 nylon was placed. The patient now received 900 g of clindamycin. The right neck was sterilely prepped and draped. She reviewed the seed some additional monitoring anesthesia care. This was done per anesthesia. Under ultrasound guidance right internal jugular vein was identified and then 2% lidocaine mixed 50-50 with 0.5% Marcaine was used as a local anesthetic throughout the procedure total 20 cc was used. Under ultrasound guidance local was instilled in a micropuncture needle inserted in the right internal jugular vein followed by Seldinger wire. Fluoroscopy demonstrated good positioning. A micropuncture sheath inserted an 035 J-wire was inserted. Local was instilled down upon the right chest wall. A small stab incision was created the 19 cm precurved palindrome catheter was tunneled from the chest to the neck site. Serial dilatation was performed. And the sheath dilator was inserted. The dilator and wire were removed. The catheters and through the sheath. The sheath was split the catheter was positioned in a nice curvilinear fashion and the tip was at the atrial caval junction. It aspirated easily. It was flushed with saline and then 2.5 cc of heparinized saline per channel. Sober topical dressing was applied around the catheter exit site after it was secured with 3-0 nylon. And then the neck site was closed interrupted 4- 0 Vicryl subdermal stitch followed by Steri-Strips Telfa OpSite. Sponge and instrument and needle counts reported to surgically correct. Patient tolerated procedure well. She was taken to the recovery area. Portable chest x-ray is pending. Specimens none. Drains none. Blood loss minimal. Dennis Santos M.D., F.A.C.S. It is of note that the department access fistulogram demonstrated a transposed cephalic vein to radial artery AV fistula of the forearm. The anastomosis appeared to have 60% or greater stenosis relief with angioplasty. The radial artery appeared to flow directly into the fistula and there was did not appear to be carbon oxide flow distally toward the hand but the ulnar artery could be seen to be patent. There appeared to be good upper arm cephalic and basilic vein outflow and good central venous outflow. Dennis Santos M.D., F.A.C.S. Surgeon: Dennis Santos Type of Anesthesia: Local MAC Anesthesiologist: Kurt Juarez
--- NOTE | 2021-10-09 12:27 | RAD_ITS ---
STUDY: X-RAY CHEST REASON FOR EXAM: Female, 76 years old. Tunneled dialysis cath placement -- supervisor dental laboratory will call when ready TECHNIQUE: Single AP portable view of the chest. COMPARISON: Comparison is made with prior study dated 03/12/2021. FINDINGS: A right sided double lumen dialysis catheter is seen with the tip in the proximal portion of the superior vena cava. EKG electrodes are seen. Mild degree of vascular congestion. There is no demonstrated pleural abnormality. Normal size heart. Normal mediastinum and lalit. Normal visualized pulmonary arteries. There is atherosclerotic calcification of the aortic arch with tortuosity. There are diffuse degenerative changes of the visualized thoracic spine. There is degenerative osteoarthritis of the bilateral shoulders. There is no demonstrated abnormality of the visualized soft tissue structures of the upper abdomen. RAD/Chest 1 View (Portable) IMPRESSION: The tip of the right-sided double-lumen dialysis catheter is in the proximal portion of the superior vena cava. Electronically Signed: Jonny Clemente MD at 13:15 EST , Service support ,
== END 2021-10-09 14:15 | disposition home or self-care (01) ==
PROVIDERS: PCP Nurse Practitioner; Referring Provider Surgery; Visit Provider Surgery
DX: T82.898A Other specified complication of vascular prosthetic devices, implants and grafts, initial encounter (principal); I13.2 Hypertensive heart and chronic kidney disease with heart failure and with stage 5 chronic kidney disease, or end stage renal disease; I50.9 Heart failure, unspecified; E11.22 Type 2 diabetes mellitus with diabetic chronic kidney disease; N18.5 Chronic kidney disease, stage 5; I48.0 Paroxysmal atrial fibrillation; I25.10 Atherosclerotic heart disease of native coronary artery without angina pectoris; M10.9 Gout, unspecified; M06.9 Rheumatoid arthritis, unspecified; F32.A Depression, unspecified; E66.01 Morbid (severe) obesity due to excess calories; Z68.42 Body mass index [BMI] 45.0-49.9, adult; Z79.82 Long term (current) use of aspirin; Z79.4 Long term (current) use of insulin; Z79.899 Other long term (current) drug therapy; Z79.52 Long term (current) use of systemic steroids; Z86.718 Personal history of other venous thrombosis and embolism
CPT/HCPCS: 36558; 36902; 71045; 76937; 77001; 99152; 99153; Q9967; C1725; C1769; J2405

== ENCOUNTER 2021-11-25 23:01 | Inpatient (IN) | payer MEDICARE, SELFPAY ==
[2016-12-05 15:47] VITALS: BMI 35.6
[2021-11-25 23:08] VITALS: BP 155/69; PULSE 114; RESP 34; TEMP 37.4; O2SAT 94; BMI 27.7
[2021-11-25 23:13] VITALS: O2SAT 93
--- NOTE | 2021-11-25 23:33 | RAD_ITS ---
STUDY: X-RAY CHEST REASON FOR EXAM: Female, 76 years old patient with shortness of breath TECHNIQUE: Single AP portable view of the chest. COMPARISON: Chest radiograph dated 10/09/2021. FINDINGS: Cardiac monitoring leads are present. There is a tunneled catheter present within the right internal jugular vein into the catheter is at the cavoatrial junction. Cardiac monitoring leads are present. The lungs are underexpanded with crowding of the bronchovascular markings. There is no demonstrated pleural abnormality. There is borderline cardiomegaly. There is enlargement of the right hilar area suggesting possible lymphadenopathy. There is prominence of the pulmonary hilar arteries with peripheral pulmonary vascular congestion. There is atherosclerotic calcification of the aortic arch with tortuosity. There are diffuse degenerative changes of the visualized thoracic spine. There are degenerative changes of both shoulders. There is no demonstrated abnormality of the visualized soft tissue structures of the upper abdomen. RAD/Chest 1 View (Portable) IMPRESSION: 1. Findings suggest right-sided hilar lymphadenopathy versus enlargement of the right pulmonary artery. 2. Cardiomegaly and mild pulmonary vascular congestion. Electronically Signed: Shantell Rangel MD at 0:36 EST , Service support ,
--- NOTE | 2021-11-25 23:34 | EKG12_ITS ---
Test Reason : SOB Blood Pressure : / mmHG Vent. Rate : 114 BPM Atrial Rate : 131 BPM P-R Int : 000 ms QRS Dur : 096 ms QT Int : 340 ms P-R-T Axes : 000 -10 149 degrees QTc Int : 468 ms Atrial fibrillation Nonspecific ST and T wave abnormality Abnormal ECG Confirmed by CHRIS MORELAND, ROBBY ([id number]), film and video editor HARJIT RUVALCABA ([id number]) on 11/28/2021 9:23:51 AM Referred By: CAROL Confirmed By:ROBBY PEREZ MD
--- NOTE | 2021-11-25 23:35 | EDS_ITS ---
HPI History of Present Illness Chief Complaint: Shortness of Breath Narrative Narrative: Patient with past medical history of end-stage renal disease, gets dialysis Thursday, Thursday, and Fridays, completed all of her dialysis today, but presents with shortness of breath that she has had since last Thursday, 7 days ago. She has a cough with phlegm production. She states on she had a fever as high as 102 ?F but took Tylenol and it resolved. States she has been short of breath. She denies any leg swelling. She still makes urine. She also has past medical history of diabetes and hypertension. She has been immunized against Covid. She presents mainly because of the shortness of breath. She does not wear oxygen at home. [facility] Medical History Ambulates with cane Arthritis Atherosclerotic heart disease of [place] coronary artery without angina pectoris Benign essential HTN Cardiology follow-up encounter Cellulitis CHF (congestive heart failure) Chronic renal failure, stage 4 (severe) Chronic steroid use Debility Depression Diabetes DM2 (diabetes mellitus, type 2) Dyslipidemia Elevated d-dimer Essential hypertension Gastroenteritis Gout High cholesterol History of echocardiogram History of edema History of pain when walking History of renal disease HTN (hypertension) Insulin dependent diabetes mellitus Lymphedema Morbid obesity with BMI of 45.0-49.9, adult Non-smoker Osteopenia Paroxysmal atrial fibrillation Personal history of DVT (deep vein thrombosis) Premature atrial contractions Premature ventricular contraction Presence of IVC filter Pressure ulcer Problem with dialysis access Pulmonary hypertension Pulmonary hypertension PVD (peripheral vascular disease) Rheumatoid arthritis Sepsis Shortness of breath on exertion Type 2 diabetes mellitus with other circulatory complications Ulcer of left lower extremity with fat layer exposed Ulcer of right lower extremity with fat layer exposed UTI (urinary tract infection) Varicose veins of both lower extremities Venous insufficiency of both lower extremities Walker as ambulation aid Wound of right lower extremity Home Medications Lantus U-100 Insulin 8 unit SQ QHS 10/16/18 [History Last Taken 07/23/21] allopurinol 300 mg PO DAILY 10/16/18 [History Last Taken 07/23/21] aspirin 81 mg PO DAILY@0800 10/16/18 [History Last Taken 09/03/21] hydroxychloroquine 200 mg PO QHS 10/16/18 [History Last Taken 07/23/21] ferrous sulfate 325 mg (65 mg iron) tablet 325 mg PO DAILY 08/15/20 [History Last Taken 07/23/21] acetaminophen 650 mg PO Q6H PRN PRN tablet 03/13/21 [Rx Last Taken 07/23/21] simvastatin 20 mg tablet 20 mg PO QHS 03/27/21 [History Last Taken 07/23/21] calcitriol 0.25 mcg capsule 0.25 mcg PO DAILY 06/17/21 [History Last Taken 07/23/21] hydralazine 25 mg tablet 25 mg PO TID #270 tab 06/17/21 [Rx Last Taken 10/09/21] Allergy/AdvReac Type Severity Reaction Status Date / Time cefepime HCl [From Maxipime] Allergy Itching Verified 11/25/21 23:13 cephalexin monohydrate Allergy Hives Verified 11/25/21 23:13 [From Keflex] clopidogrel [From Plavix] Allergy Itching Verified 11/25/21 23:13 and hives all over piperacillin [From Zosyn] Allergy Hives Verified 11/25/21 23:13 tazobactam [From Zosyn] Allergy Hives Verified 11/25/21 23:13 ciprofloxacin [From Cipro] AdvReac Itching Verified 11/25/21 23:13 hydromorphone HCl AdvReac Itching Verified 11/25/21 23:13 [From Dilaudid] Family History Father Hypertension Brother CAD (coronary artery disease) CABG x 3 in 2016 Surgical History History of bladder surgery History of colonoscopy (~04/2021) History of repair of rotator cuff History of total hysterectomy Hx of appendectomy Hx of surgical procedure S/P angioplasty with stent (~12/05/16) Social History Smoking Status: Never smoker alcohol intake: never substance use type: does not use caffeine: Yes Type: carbonated beverages what type of physical activity do you participate in: none seatbelt use: always do you feel safe at home: Yes ROS ROS ED ROS Narrative Constitutional: Positive fever, no chills. HEENT: No sore throat. No neck pain. No loss of vision. No rhinorrhea. Cardiovascular: No chest pain. No palpitations. No pedal edema. Respiratory: Occasional cough, positive shortness of breath. Abdominal: No abdominal pain. No nausea. No vomiting. Genitourinary: No dysuria. No hematuria. Musculoskeletal: No myalgias. No arthralgias. Neurologic: No headaches. No dizziness. No lightheadedness. Skin: No rash. No change in color. Psychiatric: No depression. No anxiety. EXAM Physical Exam Narrative Exam Narrative: Afebrile. Vital signs noted. HEENT: Normocephalic. Atraumatic. PERRL, EOMI. Neck soft and supple. No point tenderness or step off. Cardiovascular: Regular rate and rhythm. No murmurs, rubs, or gallops appreciated. Respiratory: No tachypnea. Bilateral rhonchi. Gastrointestinal: Abdomen soft, nontender, with normoactive bowel sounds. No rebound or guarding. Neurological: Awake. Alert. Nonfocal, nonlateralizing. Skin: No rash. Normal color. No pallor. Musculoskeletal: No pedal edema. Full range of motion extremities. Fistula in left upper extremity forearm with palpable thrill Const Vital Signs: 11/25/21 23:08 11/25/21 23:13 11/26/21 00:58 Temperature 99.3 F H 97.9 F Temperature Source Oral Temporal Pulse Rate 114 H 120 H Respiratory Rate 34 H 27 H Respiratory Effort Short of Breath Accessory Muscle Use Respiratory Pattern Tachypnea Blood Pressure 155/69 H 160/98 H Blood Pressure Mean 97 118 Pulse Ox 94 99 Oxygen Delivery Method Room Air Room Air Nasal Cannula Oxygen Flow Rate (L/min) 2 11/26/21 01:56 Temperature 97.3 F L Temperature Source Temporal Pulse Rate 107 H Respiratory Rate 34 H Respiratory Effort Respiratory Pattern Blood Pressure 152/86 H Blood Pressure Mean 108 Pulse Ox 92 Oxygen Delivery Method Room Air Oxygen Flow Rate (L/min) MDM MDM MDM Narrative Medical decision making narrative: Comprehensive work-up was pursued. Her EKG demonstrates atrial fibrillation at [address] changes. She has had a diagnosis of paroxysmal atrial fibrillation in the past. She has normal white count of 6.9. Hemoglobin 8.9. Potassium is low at 2.7. She was given a dose orally and started on 40 mEq intravenously. Creatinine is elevated 2.44 consistent with her end-stage renal disease. Lactic acid is normal at 1.1. High-sensitivity troponin normal at 33. Given her hypokalemia and her atrial fibrillation, I do feel she requires observation. She was given Lopressor 5 mg intravenously for rate control. Additionally she tested negative for COVID-19 but positive for influenza A. She is outside the 5-day window of symptom onset as she states she had a fever last , hence I do not feel Tamiflu is indicated. Attempt was made to be weaned from nasal cannula, but her pulse ox dipped to 86% on room air. She does not wear oxygen at home. Her saturations improved after being replaced on oxygen. In discussion with Dr. Mata, although she has chronic kidney injury, he would like her dosed with Lovenox for her atrial fibrillation. I will administer 1 mg/kg subcutaneously as an initial dose as the patient will be dialyzed. I discussed patient with the hospitalist for observation. She is in stable condition. Lab Data Attestation: I reviewed the patient's lab results. Labs: Laboratory Results - last 24 hr 11/25/21 11/25/21 11/25/21 23:30 23:30 23:30 WBC 6.9 RBC 2.83 L Hgb 8.9 L Hct 29.1 L MCV 102.8 H MCH 31.4 MCHC 30.6 L RDW Std Deviation 59.6 H RDW Coeff of Raymond 15.8 H Plt Count 218 MPV 9.8 Immature Gran % (Auto) 0.700 Neut % (Auto) 67.0 Lymph % (Auto) 23.1 Boundary % (Auto) 5.8 Eos % (Auto) 2.8 Baso % (Auto) 0.6 Absolute Neuts (auto) 4.6 Absolute Lymphs (auto) 1.59 Nucleated RBC % 0 Sodium 138 Potassium 2.7 L* Chloride 98 Carbon Dioxide 35.0 H Anion Gap 5 BUN 18 Creatinine 2.44 H Estim Creat Clear Calc 15.76 Est GFR (MDRD) Af Amer 25 L Est GFR (MDRD) Non-Af 21 L BUN/Creatinine Ratio 7.4 L Glucose 119 H Lactic Acid 1.1 Calcium 8.0 L Troponin I High Sens 33 Radiography Diagnostic Testing: Clinical Impression(s) from Imaging Studies Chest X-Ray 11/25/21 23:33 IMPRESSION: 1. Findings suggest right-sided hilar lymphadenopathy versus enlargement of the right pulmonary artery. 2. Cardiomegaly and mild pulmonary vascular congestion. Electronically Signed: Shantell Rangel MD at 0:36 EST , Service support , Discharge Plan Dx/Rx/DC Orders Clinical Impression: Acute hypokalemia, Influenza A, Atrial fibrillation with rapid ventricular response, Hypoxia Disposition Disposition: Acute Care Hospital [facility]
[2021-11-25 23:43] LABS: Absolute Lymphocyte Count 1.59 X10^3/uL (0.83-4.51); Absolute Neutrophil Count 4.6 X10^3/uL (2.0-7.7); Basophil# 0.04 X10^3/uL; Basophil% 0.6 % (0-1); Eosinophil# 0.19 X10^3/uL; Eosinophils% 2.8 % (0-5); Hematocrit 29.1 % (37-47); Hemoglobin 8.9 g/dL (12.0-15.0); Lymphocyte # 1.59 X10^3/ul (0.83-4.51); Lymphocyte % 23.1 % (19-41); Mean Corp Hgb Conc 30.6 g/dL (32-36); Mean Corpuscular Hgb 31.4 pg (27.0-32.0); Mean Corpuscular Volume 102.8 fL (81-99); Mean Platelet Vol. 9.8 fl (6.2-12.0); Monocyte% 5.8 % (0-10); NRBC Flagged by Analyzer 0 % (0-5); Neutrophil # 4.61 X10^3/uL (2.7-7.7); Platelet Count 218 K/mm3 (150-450); RBC Distribution Width CV 15.8 % (11.6-14.6); RBC Distribution Width SD 59.6 fl (35.1-43.9); Red Blood Count 2.83 M/mm3 (4.2-5.4); White Blood Count 6.9 K/mm3 (4.4-11.0)
[2021-11-26] VITALS (21 sets, daily range): BP systolic 118–160; BP diastolic 59–98; PULSE 80–120; RESP 16–36; TEMP 36.1–36.6; O2SAT 86–100; BMI 26.3
[2021-11-26] LABS: Lactic Acid 1.1 mmol/L (0.4-1.9)
[2021-11-26 00:08] LABS: Anion Gap 5 (5-15); BUN 18 mg/dL (7-18); BUN/Creat Ratio 7.4 RATIO (10-20); Chloride 98 mmol/L (98-107); Creatinine, Serum 2.44 mg/dL (0.55-1.02); EST Glomerular Filtration Rate 21 mL/min (>60); Est Glom Filt Rate - Afr Amer 25 mL/min (>60); Estimated Creatinine Clearance 15.76 ml/min; Glucose 119 mg/dL (74-106); Potassium 2.7 mmol/L (3.5-5.1); Sodium Level 138 mmol/L (136-145); Troponin-I HS 33 pg/mL (3.0-54.0)
[2021-11-26] MEDS: Potassium Chloride Oral Tablet 20 MEQ 40 MEQ PO (00:54)
[2021-11-26] MEDS: KCL 40mEq in 0.9% NS 40 MEQ/1,000 ML IV.SOLN 100 MEQ IV (00:57)
[2021-11-26] MEDS: Metoprolol Tartrate 5 MG/5 ML Vial IV (01:54)
[2021-11-26] MEDS: Enoxaparin 80 MG/0.8 ML Syringe 70 MG SC (02:13)
--- NOTE | 2021-11-26 02:16 | PCM.HP.STD ---
HPI - General General Date of Admission: 11/26/21 HPI Narrative DEVORAH ALLAN, is a 76 F who presents to the emergency room with chief complaint of shortness of breath. Patient noticed feeling short of breath after dialysis today. The patient has had worsening symptoms of shortness of breath over the past several days. She started having difficulty completing sentences without gasping for air. She was transported by squad due to hypoxia and requiring oxygen to maintain her saturation above 90% and was also given a dose of Solu-Medrol in route to the ER. She continues to be short of breath despite oxygen and was diagnosed with atrial fibrillation with a rapid ventricular response of 130 bpm. She was given a dose of Lopressor and rate was controlled. She has a history of paroxysmal atrial fibrillation but is not on chronic anticoagulation. Patient also diagnosed with low potassium of 2.7. She will be admitted for observation for rate control her atrial fibrillation and correcting her potassium. Patient was diagnosed with influenza A and Covid testing was negative. We will continue oxygen support but she is out of the 5-day window from symptom onset for Tamiflu [facility] Medical History Ambulates with cane Arthritis Atherosclerotic heart disease of [place] coronary artery without angina pectoris Benign essential HTN Cardiology follow-up encounter Cellulitis CHF (congestive heart failure) Chronic renal failure, stage 4 (severe) Chronic steroid use Debility Depression Diabetes DM2 (diabetes mellitus, type 2) Dyslipidemia Elevated d-dimer Essential hypertension Gastroenteritis Gout High cholesterol History of echocardiogram History of edema History of pain when walking History of renal disease HTN (hypertension) Insulin dependent diabetes mellitus Lymphedema Morbid obesity with BMI of 45.0-49.9, adult Non-smoker Osteopenia Paroxysmal atrial fibrillation Personal history of DVT (deep vein thrombosis) Premature atrial contractions Premature ventricular contraction Presence of IVC filter Pressure ulcer Problem with dialysis access Pulmonary hypertension Pulmonary hypertension PVD (peripheral vascular disease) Rheumatoid arthritis Sepsis Shortness of breath on exertion Type 2 diabetes mellitus with other circulatory complications Ulcer of left lower extremity with fat layer exposed Ulcer of right lower extremity with fat layer exposed UTI (urinary tract infection) Varicose veins of both lower extremities Venous insufficiency of both lower extremities Walker as ambulation aid Wound of right lower extremity Home Medications Lantus U-100 Insulin 8 unit SQ QHS 10/16/18 [History Last Taken 07/23/21] allopurinol 300 mg PO DAILY 10/16/18 [History Last Taken 07/23/21] aspirin 81 mg PO DAILY@0800 10/16/18 [History Last Taken 09/03/21] hydroxychloroquine 200 mg PO QHS 10/16/18 [History Last Taken 07/23/21] ferrous sulfate 325 mg (65 mg iron) tablet 325 mg PO DAILY 08/15/20 [History Last Taken 07/23/21] acetaminophen 650 mg PO Q6H PRN PRN tablet 03/13/21 [Rx Last Taken 07/23/21] simvastatin 20 mg tablet 20 mg PO QHS 03/27/21 [History Last Taken 07/23/21] calcitriol 0.25 mcg capsule 0.25 mcg PO DAILY 06/17/21 [History Last Taken 07/23/21] hydralazine 25 mg tablet 25 mg PO TID #270 tab 06/17/21 [Rx Last Taken 10/09/21] B complex-vitamin C-folic acid [Didi-Connie] 1 tab PO DAILY 11/26/21 [History Last Taken Unknown] Allergy/AdvReac Type Severity Reaction Status Date / Time cefepime HCl [From Maxipime] Allergy Itching Verified 11/25/21 23:13 cephalexin monohydrate Allergy Hives Verified 11/25/21 23:13 [From Keflex] clopidogrel [From Plavix] Allergy Itching Verified 11/25/21 23:13 and hives all over piperacillin [From Zosyn] Allergy Hives Verified 11/25/21 23:13 tazobactam [From Zosyn] Allergy Hives Verified 11/25/21 23:13 ciprofloxacin [From Cipro] AdvReac Itching Verified 11/25/21 23:13 hydromorphone HCl AdvReac Itching Verified 11/25/21 23:13 [From Dilaudid] Family History Father Hypertension Brother CAD (coronary artery disease) CABG x 3 in 2016 Surgical History History of bladder surgery History of colonoscopy (~04/2021) History of repair of rotator cuff History of total hysterectomy Hx of appendectomy Hx of surgical procedure S/P angioplasty with stent (~12/05/16) Social History Smoking Status: Never smoker alcohol intake: never substance use type: does not use caffeine: Yes Type: carbonated beverages what type of physical activity do you participate in: none seatbelt use: always do you feel safe at home: Yes ROS Constitutional Constitutional: Reports chills and fatigue Cardiovascular Cardiovascular: Reports arrhythmia on telemetry; Denies chest pain Respiratory/Chest Respiratory/Chest: Reports shortness of breath at rest Gastrointestinal Gastrointestinal: Denies abdominal pain Psychiatric Psychiatric: Reports as per HPI Vital Signs Vital Signs Vital Signs: 11/25/21 23:08 11/25/21 23:13 11/26/21 00:58 Temperature 99.3 F H 97.9 F Temperature Source Oral Temporal Pulse Rate 114 H 120 H Respiratory Rate 34 H 27 H Respiratory Effort Short of Breath Accessory Muscle Use Respiratory Pattern Tachypnea Blood Pressure 155/69 H 160/98 H Blood Pressure Mean 97 118 Pulse Ox 94 99 Oxygen Delivery Method Room Air Room Air Nasal Cannula Oxygen Flow Rate (L/min) 2 11/26/21 01:56 11/26/21 02:00 11/26/21 02:05 Temperature 97.3 F L 97.3 F L Temperature Source Temporal Temporal Pulse Rate 107 H 86 Respiratory Rate 34 H 36 H 22 H Respiratory Effort Respiratory Pattern Blood Pressure 152/86 H 138/77 H Blood Pressure Mean 108 97 Pulse Ox 92 86 99 Oxygen Delivery Method Room Air Room Air Nasal Cannula Oxygen Flow Rate (L/min) 2 Weight Weight: 151 lb 7.321 oz Body Mass Index (BMI) 27.7 Physical Exam Const alert and oriented x3 General Appearance: cooperative HEENT normocephalic and head/scalp atraumatic Eyes PERRL Neck supple Lymph Lymphatic: no lymphadenopathy noted Resp Effort and Inspection: respiratory distress and labored Auscultation: wheezes throughout Cardio S1 normal heart sound and S2 normal heart sound Rate: tachycardic Rhythm: abnormal rhythm irregularly irregular GI normal to inspection, nondistended, normoactive bowel sounds Extremity no clubbing, cyanosis or edema Skin General Skin Exam: turgor normal Neuro no focal motor deficits and no sensory deficits noted Psych affect normal Results Lab / Micro Data Result Diagrams: 11/25/21 23:30 11/25/21 23:30 Labs: Laboratory Results - last 24 hr 11/25/21 23:30: WBC 6.9, RBC 2.83 L, Hgb 8.9 L, Hct 29.1 L, MCV 102.8 H, MCH 31.4, MCHC 30.6 L, RDW Std Deviation 59.6 H, RDW Coeff of Raymond 15.8 H, Plt Count 218, MPV 9.8, Immature Gran % (Auto) 0.700, Neut % (Auto) 67.0, Lymph % (Auto) 23.1, [place] % (Auto) 5.8, Eos % (Auto) 2.8, Baso % (Auto) 0.6, Absolute Neuts (auto) 4.6, Absolute Lymphs (auto) 1.59, Nucleated RBC % 0 11/25/21 23:30: Sodium 138, Potassium 2.7 L*, Chloride 98, Carbon Dioxide 35.0 H, Anion Gap 5, BUN 18, Creatinine 2.44 H, Estim Creat Clear Calc 15.76, Est GFR (MDRD) Af Amer 25 L, Est GFR (MDRD) Non-Af 21 L, BUN/Creatinine Ratio 7.4 L, Glucose 119 H, Calcium 8.0 L, Troponin I High Sens 33 11/25/21 23:30: Lactic Acid 1.1 Micro: Microbiology 11/26/21 00:00 Mucosa - Nasopharyngeal Influenza Types A,B Direct FA (ELIJAH) - Final Influenzae A 11/25/21 23:45 Nasal Secretion SARS-CoV-2 Antigen (Rapid) - Final Radiology Impression Chest X-Ray 11/25/21 23:33 IMPRESSION: 1. Findings suggest right-sided hilar lymphadenopathy versus enlargement of the right pulmonary artery. 2. Cardiomegaly and mild pulmonary vascular congestion. Electronically Signed: Shantell aRngel MD at 0:36 EST , Service support , Assessment & Plan Assessment/Plan (1) Acute hypokalemia: (2) Influenza A: (3) Atrial fibrillation with rapid ventricular response: (4) Hypoxia: (5) Chronic renal insufficiency, stage V: PLAN: 1. Hypoxia secondary to influenza A?admit patient to progressive care unit, oxygen per protocol, Solu-Medrol 40 mg IV every 8 hours, DuoNeb inhalation treatment every 4 hours as needed. Patient is out of the window for Tamiflu. 2. Acute hypokalemia?replace potassium repeat BMP in the morning 3. Atrial fibrillation with RVR?we will start low molecular weight heparin at 1 mg/kg subcu x 1 dose and see if patient converts to normal sinus rhythm overnight. We will continue metoprolol 25 mg p.o. twice daily tartrate for rate control 4. End-stage renal disease?dialysis dependent Next dialysis is due on Thursday 5. DVT prophylaxis?patient will be anticoagulated this evening Charges/Coding Visit Charges OBSV E&M: 25205 Initial observation care L2
--- NOTE | 2021-11-26 03:27 | PCS.PANDOC ---
PANDEMIC DOCUMENTATION INITIATED: Date: 07/15/2021 Time: 190
[2021-11-26] MEDS: Ipratropium/Albuterol Sulfate 3 ML AMPUL.NEB INHALATION ×4 (06:40→19:51)
[2021-11-26] MEDS: hydrALAZINE 25 MG Tablet PO ×3 (06:52→21:35)
[2021-11-26 08:33] LABS: Anion Gap 7 (5-15); BUN 20 mg/dL (7-18); BUN/Creat Ratio 7.7 RATIO (10-20); Calcium,Total 7.6 mg/dL (8.5-10.1); Chloride 105 mmol/L (98-107); EST Glomerular Filtration Rate 19 mL/min (>60); Est Glom Filt Rate - Afr Amer 23 mL/min (>60); Estimated Creatinine Clearance 14.79 ml/min; Glucose 172 mg/dL (74-106); Potassium 4.1 mmol/L (3.5-5.1); Sodium Level 140 mmol/L (136-145)
[2021-11-26] MEDS: Folic Acid/Vitamin B Comp W-C 1 Capsule 1 CAP PO (09:29)
[2021-11-26] MEDS: Calcitriol 0.25 MCG Capsule PO (09:29)
[2021-11-26] MEDS: Aspirin 81 MG TAB.CHEW PO (09:29)
[2021-11-26] MEDS: Allopurinol 300 MG Tablet PO (09:29)
--- NOTE | 2021-11-26 11:14 | CASEMGMT ---
Face to Face with patient for initial transition planning/care coordination assessment. Patient alert, sitting up in chair with O2 in place, in no apparent distress. Patient admits to feeling weak and fatigued. CCM introduced self and role at [facility]. Care providers, pharmacy, and demographics verified. PCP: Sonja Feliciano NP Specialists: Wang- cardiology, Dane- auto body straightener, Feliciano- Particleboard Factory Worker Preferred Pharmacy: [facility] Insurance: [employer] Medicare PPO Prescription Benefit: yes Living Will/HPOA: Patient has LW/HPOA on file at [facility]. Patient's HPOA is son Kurt Stapleton and daughter More Stapleton. LNOK: Daughter More Stapleton Living Arrangements: Patient lives with daughter More and grandson in 2 story home with no steps to enter. Patient states independent with ADLs prior to hospitalization. Transportation: Patient drives self and denies transportation needs. DME/HHC: Patient uses cane in the house but rollator when she leaves the home. Denies other DME in home. Previous HHC with [facility]. Denies previous SNF stays. Patient does not wear home oxygen. Patient has hemod[facility] on Thu[facility]. Plan: Home pending therapy evals
[2021-11-26] MEDS: Ferrous Sulfate 325 MG Tablet PO (11:20)
--- NOTE | 2021-11-26 20:42 | PCM.HOSP.N ---
Hospitalist Note Patient was is seen and examined briefly today, she was admitted early this morning with hypoxia and influenza A, she will undergo dialysis tomorrow and her pulse ox will continue to be monitored. Patient was not placed on Tamiflu due to the fact that she is out of the 2-day window for use of Tamiflu. I have started the patient on oral metoprolol for rate control at this time.
[2021-11-26] MEDS: Metoprolol Tartrate 25 MG Tablet 12.5 MG PO (21:33)
[2021-11-26] MEDS: Hydroxychloroquine 200 MG Tablet PO (21:35)
[2021-11-26] MEDS: Atorvastatin Calcium 10 MG Tablet PO (21:36)
[2021-11-26 21:50] LABS: Bedside Glucose 335 mg/dL (70-110)
[2021-11-27] VITALS (9 sets, daily range): BP systolic 111–146; BP diastolic 49–81; PULSE 79–111; RESP 16–22; TEMP 36.4–36.6; O2SAT 93–97
[2021-11-27] MEDS: hydrALAZINE 25 MG Tablet PO (06:53)
[2021-11-27] MEDS: 0.9% Saline Lock 10 ML Syringe IV (06:54)
[2021-11-27] MEDS: Ipratropium/Albuterol Sulfate 3 ML AMPUL.NEB INHALATION ×2 (07:15→10:51)
[2021-11-27] MEDS: Aspirin 81 MG TAB.CHEW PO (08:39)
[2021-11-27] MEDS: Allopurinol 300 MG Tablet PO (08:40)
[2021-11-27] MEDS: Metoprolol Tartrate 25 MG Tablet 12.5 MG PO (09:40)
[2021-11-27] MEDS: Calcitriol 0.25 MCG Capsule PO (09:40)
[2021-11-27] MEDS: Folic Acid/Vitamin B Comp W-C 1 Capsule 1 CAP PO (09:40)
[2021-11-27] MEDS: Ferrous Sulfate 325 MG Tablet PO (11:23)
--- NOTE | 2021-11-27 13:36 | PCM.DC ---
Discharge Instructions Diet Discharge Diet: 1800 Calorie Control Diet Activity Discharge Activity: Return to Normal Activity Weight Bearing Status: Full weight bearing Follow Up Care Test Results: Test results from this visit will be discussed in further detail at your follow-up appointment, if applicable. Discharge Plan Admission Admit Date/Time: 11/26/21 08:06 Primary Reason for Your Visit: Influenza A, hypoxia Attending Provider: Darinel Garcia Primary Care Provider: Sonja Feliciano NP Discharge Orders/Prescriptions Prescriptions: New Eliquis 5 mg tablet 5 mg PO BID Qty: 60 RF: 0 metoprolol tartrate 25 mg tablet 12.5 mg PO DAILY Qty: 30 RF: 0 Continued simvastatin 20 mg tablet 20 mg PO QHS RF: 0 calcitriol 0.25 mcg capsule 0.25 mcg PO DAILY RF: 0 hydralazine 25 mg tablet 25 mg PO TID Qty: 270 RF: 3 Lantus U-100 Insulin 100 UNIT/ML solution 8 unit SQ QHS RF: 0 aspirin 81 MG tablet,chewable 81 mg PO DAILY@0800 RF: 0 allopurinol 300 MG tablet 300 mg PO DAILY RF: 0 hydroxychloroquine 200 MG tablet 200 mg PO QHS RF: 0 acetaminophen 325 MG tablet 650 mg PO Q6H PRN PRN (Reason: Pain Score 1-10/Temp > 100.7 F) RF: 0 Didi-Connie 0.8 mg tablet 1 tab PO DAILY RF: 0 ferrous sulfate 325 mg (65 mg iron) tablet 325 mg PO DAILY RF: 0 Referrals / Follow Up: Gustavo Piña MD [STAFF PHYSICIAN] - In 1 Week Sonja Feliciano NP, SAMANTA-C [Primary Care Provider] - Within 2 Weeks Disposition Disposition (needs filled in before D/C Order can be placed): Home, Self Care
--- NOTE | 2021-11-27 14:28 | CASEMGMT ---
Call to Alea at [facility] and they are awaiting pt arrival for her OP dialysis. Pt to be sent home with Eliquis and med e-scribed to [facility] pharmacy. Per Nov in pharmacy, pt's cost is $47/month and Eliquis 30 day free trial card applied. Pt voices no further questions/concerns/needs. Pt ready for d/c to OP dialysis. SStdionicio RESENDEZ CM
--- NOTE | 2021-11-27 16:03 | PCM.DC.SUM ---
Providers Date of Admission: 11/26/21 Date of Discharge: 11/27/21 Primary Care Physician: CRISTIAN Wiley Reason For Visit: HYPOXIA,INFLUENZA A Diagnosis Discharge Diagnosis (1) Acute hypokalemia: Status: Acute Code(s): E87.6 - Hypokalemia (2) Influenza A: Status: Acute Code(s): J10.1 - Influenza due to other identified influenza virus with other respiratory manifestations (3) Atrial fibrillation with rapid ventricular response: Status: Acute Code(s): I48.91 - Unspecified atrial fibrillation (4) Hypoxia: Status: Acute Code(s): R09.02 - Hypoxemia (5) Chronic renal insufficiency, stage V: Status: Chronic Code(s): N18.5 - Chronic kidney disease, stage 5 Plan: 1. Acute hypoxic respiratory failure secondary to influenza A #2 influenza A present on admission #3 end-stage renal disease requiring chronic dialysis #4 hypokalemia #5 chronic anemia secondary to chronic kidney disease Medications at Discharge Home Medications Lantus U-100 Insulin 8 unit SQ QHS 10/16/18 allopurinol 300 mg PO DAILY 10/16/18 aspirin 81 mg PO DAILY@0800 10/16/18 hydroxychloroquine 200 mg PO QHS 10/16/18 ferrous sulfate 325 mg (65 mg iron) tablet 325 mg PO DAILY 08/15/20 acetaminophen 650 mg PO Q6H PRN PRN tablet 03/13/21 simvastatin 20 mg tablet 20 mg PO QHS 03/27/21 calcitriol 0.25 mcg capsule 0.25 mcg PO DAILY 06/17/21 hydralazine 25 mg tablet 25 mg PO TID #270 tab 06/17/21 Didi-Connie 1 tab PO DAILY 11/26/21 apixaban [Eliquis] 5 mg PO BID #60 tab 11/27/21 metoprolol tartrate 12.5 mg PO DAILY #30 tab 11/27/21 Hospital Course Operations None Procedures None Summary of Care Provided Minutes Spent on Discharge: 31 Hospital Course: Patient is a 76-year-old white female who presented to the emergency room with a chief complaint of shortness of breath. Work-up in the emergency room included labs which showed a low potassium of 2.7, she required oxygen to maintain a pulse ox above 90%. Patient was noted to be in atrial fibrillation but was not on any chronic anticoagulation. Patient's test for influenza A was positive, patient's Covid test was negative. Patient was out of a window for use of Tamiflu for her influenza. Patient was admitted to PCU, her oxygen was able to be weaned off the next day, I had a discussion with her about the use of anticoagulates due to of her A. fib, she agreed to go on Eliquis. On 11/27/2021, patient was seen and examined: On examination she appeared in good health and spirits, she does not appear to be in any distress. Vital signs as documented. Skin warm and dry and without overt rashes. Neck without JVD, thyroid appears normal, trachea is midline, neck is supple. Lungs clear, normal air movement was noted. Heart exam notable for irregular rhythm, normal sounds and absence of murmurs, rubs or gallops. Abdomen unremarkable and without evidence of organomegaly, masses, or abdominal aortic enlargement, bowel sounds are present in all 4 quadrants, no abdominal tenderness was noted. Extremities nonedematous, no cyanosis was noted, no clubbing was noted. Neuro: Cranial nerves II through XII are grossly intact, no focal motor deficits were noted, sensation to light touch and pinprick is intact, motor exam 5/5 throughout. Psych: Patient is alert and oriented x3, she does not appear anxious or depressed, she does not appear agitated. Patient was discharged home in stable condition on 11/27/2021. Weight / BMI Weight Weight: 66.8 kg Body Mass Index (BMI) 26.3 ABG / Lab / Microbiology Data Result Diagrams: 11/25/21 23:30 11/26/21 07:24 Laboratory: Laboratory Results - last 24 hr 11/26/21 21:40: POC Glucose 335 H Microbiology: Microbiology 11/25/21 23:44 Blood Culture (Wb) #2 - Anticubital Right Bacteria Detection (PCR) - Final Staphylococcus epidermidis 11/25/21 23:44 Blood Culture (Wb) #2 - Anticubital Right Blood Culture - Preliminary Staphylococcus epidermidis 11/26/21 00:00 Mucosa - Nasopharyngeal Influenza Types A,B Direct FA (ELIJAH) - Final Influenzae A 11/25/21 23:45 Nasal Secretion SARS-CoV-2 Antigen (Rapid) - Final D/C Instructions Discharge Diet: 1800 Calorie Control Diet Weight Bearing Status: Full weight bearing Meaningful Use Info Meaningful Use Diagnoses (Choose all that apply): None applicable Discharge Plan Admission Admit Date/Time: 11/26/21 08:06 Primary Reason for Your Visit: Influenza A, hypoxia Attending Provider: Darinel Garcia Primary Care Provider: Sonja Feliciano NP Discharge Orders/Prescriptions Prescriptions: New Eliquis 5 mg tablet 5 mg PO BID Qty: 60 RF: 0 metoprolol tartrate 25 mg tablet 12.5 mg PO DAILY Qty: 30 RF: 0 Continued simvastatin 20 mg tablet 20 mg PO QHS RF: 0 calcitriol 0.25 mcg capsule 0.25 mcg PO DAILY RF: 0 hydralazine 25 mg tablet 25 mg PO TID Qty: 270 RF: 3 Lantus U-100 Insulin 100 UNIT/ML solution 8 unit SQ QHS RF: 0 aspirin 81 MG tablet,chewable 81 mg PO DAILY@0800 RF: 0 allopurinol 300 MG tablet 300 mg PO DAILY RF: 0 hydroxychloroquine 200 MG tablet 200 mg PO QHS RF: 0 acetaminophen 325 MG tablet 650 mg PO Q6H PRN PRN (Reason: Pain Score 1-10/Temp > 100.7 F) RF: 0 Didi-Connie 0.8 mg tablet 1 tab PO DAILY RF: 0 ferrous sulfate 325 mg (65 mg iron) tablet 325 mg PO DAILY RF: 0 Referrals / Follow Up: Gustavo Piña MD [STAFF PHYSICIAN] - In 1 Week Sonja Feliciano NP, [employer] [Primary Care Provider] - Within 2 Weeks Disposition Disposition (needs filled in before D/C Order can be placed): Home, Self Care Charges/Coding Visit Charges Inpatient E&M: 73283 Disch Hosp
== END 2021-11-27 14:21 | disposition home or self-care (01) | DRG 193 ==
LOC: ED 11-26 01:42 → PCU 11-26 07:12
PROVIDERS: Admitting Provider Family Medicine; Emergency Provider Emergency Medicine; PCP Nurse Practitioner; Visit Provider Internal Medicine
DX: J10.1 Influenza due to other identified influenza virus with other respiratory manifestations (principal); N18.6 End stage renal disease; J96.01 Acute respiratory failure with hypoxia; I13.2 Hypertensive heart and chronic kidney disease with heart failure and with stage 5 chronic kidney disease, or end stage renal disease; Z68.42 Body mass index [BMI] 45.0-49.9, adult; I50.9 Heart failure, unspecified; D63.1 Anemia in chronic kidney disease; E11.22 Type 2 diabetes mellitus with diabetic chronic kidney disease; Z99.2 Dependence on renal dialysis; I48.0 Paroxysmal atrial fibrillation; E87.6 Hypokalemia; Z20.822 Contact with and (suspected) exposure to COVID-19; I25.10 Atherosclerotic heart disease of native coronary artery without angina pectoris; E11.51 Type 2 diabetes mellitus with diabetic peripheral angiopathy without gangrene; M06.9 Rheumatoid arthritis, unspecified; E78.5 Hyperlipidemia, unspecified; I89.0 Lymphedema, not elsewhere classified; M10.9 Gout, unspecified; M19.90 Unspecified osteoarthritis, unspecified site; F32.A Depression, unspecified; E66.01 Morbid (severe) obesity due to excess calories; Z79.82 Long term (current) use of aspirin; Z79.01 Long term (current) use of anticoagulants; Z79.4 Long term (current) use of insulin; Z79.52 Long term (current) use of systemic steroids; Z79.899 Other long term (current) drug therapy; Z86.718 Personal history of other venous thrombosis and embolism
CPT/HCPCS: 36415; 71045; 80048; 82962; 83605; 84484; 85025; 87040; 87149; 87426; 87804; 93005; 94640; 97161; 97166; 97802; 99285; A4216